=== PATIENT | male | born 1950 | race Caucasian/White ===

== ENCOUNTER 2022-11-10 15:08 | Outpatient (OUT) | payer MEDICARE, SELFPAY ==
[2022-11-10 16:01] LABS: Estimated Average Glucose 151 mg/dL; Glycohemoglobin A1C 6.9 % (4.5-6.2)
== END 2022-11-10 15:09 | disposition home or self-care (01) ==
LOC: LAB 15:11
PROVIDERS: PCP Family Medicine; Visit Provider Family Medicine
DX: E11.65 Type 2 diabetes mellitus with hyperglycemia (principal)
CPT/HCPCS: 36415; 83036

== ENCOUNTER 2022-11-20 09:59 | Emergency (ER) | payer MEDICARE, SELFPAY ==
[2022-11-20] VITALS (17 sets, daily range): BP systolic 127–158; BP diastolic 61–71; PULSE 51–68; RESP 12–23; TEMP 36.4; O2SAT 91–100; BMI 27.4
--- NOTE | 2022-11-20 10:15 | ED_ITS ---
HPI - Dizziness General Chief Complaint: Dizziness Stated Complaint: DIZZINESS Time Seen by Provider: 11/20/22 10:15 Source: patient and family Mode of arrival: Wheelchair Limitations: no limitations History of Present Illness HPI Narrative: Patient presents to the emergency department complaining of tinnitus. He states when he got up this morning he stood up and felt like the room was spinning. He states she's had episodes like this in the last month intermittently. He has not seen his doctor for it. He denies any nausea or vomiting. states she's had diarrhea in the last 3 days. Patient otherwise denies any headache, visual disturbance, or speech difficulties. He denies any focal weakness. He denies any fever, chills, or cough. He denies any chest, shortness of breath. He denies any abdominal pain, flank pain, hematuria, dysuria. Patient denies any trauma. He has been eating and drinking well. He denies any ear pain or tinnitus. MD elicited complaint: Reports dizziness Related Data Home Medications Medication Instructions Recorded Confirmed aspirin 81 mg tablet,delayed 81 mg PO DAILY 11/20/22 11/20/22 release (Adult Aspirin Regimen) metformin 500 mg tablet 500 mg PO DAILY 11/20/22 11/20/22 rosuvastatin 20 mg tablet 40 mg PO DAILY 11/20/22 11/20/22 Previous Rx's Medication Instructions Recorded meclizine 25 mg tablet 25 mg PO TID PRN dizziness #20 tabs 11/20/22 Allergies Allergy/AdvReac Type Severity Reaction Status Date / Time No Known Drug Allergies Allergy Verified 11/20/22 10:09 Review of Systems ROS Status of ROS 10 or more systems reviewed and unremarkable except as noted in history and below [facility] Social History Smoking status: Current every day smoker Exam Narrative Exam Narrative: Nurses notes and vital signs reviewed and patient is not hypoxic. General: Nontoxic, Well-appearing and in no apparent distress. Skin: Warm, dry, no pallor noted. No Rash Head: Normocephalic, atraumatic. Neck: Supple, non-tender. Eye: Pupils are equal, round and EOMI. No scleral icterus. Ears, Nose, Mouth, and Throat: TM clear, no posterior oropharynx erythema or nasal mucosal hypertrophy, uvula is mid-line Oral mucosa is moist Cardiovascular: Regular Rate and Rhythm without murmur, gallop or rub. Respiratory: No accessory muscle use or respiratory distress. Lungs are clear to auscultation, no wheezing, rales or rhonchi Chest Wall: no tenderness Back: No midline thoracic or lumbar vertebral tenderness. No CVA tenderness Musculoskeletal: normal ROM, no calf or popliteal tenderness, no lower extremity edema/swelling GI: Abdomen is soft, non-distended. Normal bowel sounds. No masses appreciated. No tenderness to palpation. No rebound, guarding, or rigidity noted. Neurological: A&O x4. No cranial nerve dysfunction observed. No truncal ataxia. Moves all extremities. Sensation intact. Psychiatric: Cooperative and interactive. Normal mood and affect. Constitutional Vital Signs, click to edit/add: Last Vital Signs Temp 97.6 F 11/20/22 10:05 Pulse 55 L 11/20/22 11:50 Resp 17 11/20/22 11:50 BP 152/69 H 11/20/22 11:44 Pulse Ox 98 11/20/22 11:40 O2 Del Method Room Air 11/20/22 12:01 Course Vital Signs Vital signs: Vital Signs Temperature 97.6 F 11/20/22 10:05 Pulse Rate 55 L 11/20/22 10:05 Respiratory Rate 16 11/20/22 10:05 Blood Pressure 156/65 H 11/20/22 10:05 Pulse Oximetry 99 11/20/22 10:05 Oxygen Delivery Method Room Air 11/20/22 10:05 Temperature 97.6 F 11/20/22 10:05 Pulse Rate 55 L 11/20/22 11:50 Respiratory Rate 17 11/20/22 11:50 Blood Pressure 152/69 H 11/20/22 11:44 Pulse Oximetry 98 11/20/22 11:40 Oxygen Delivery Method Room Air 11/20/22 12:01 MDM - Dizziness MDM Narrative Medical decision making narrative: Patient is neurologically intact. He was given Antivert which helped his symptoms. Labs studies and CT scan of the brain and chest x-ray were done and did not show anything acute. Patient will be given a prescription for Antivert. He is to follow up with primary care doctor. At this time the patient is without objective evidence of an acute process requiring hospitalization or inpatient management. The patient has remained hemodynamically stable. No additional indication for emergent studies at this time. I answered all questions. Discussed discharge instructions including standard anticipatory guidance and what should prompt a return to the emergency department, including if they get worse are not getting better or develops any new or concerning symptoms. I've given them specific time frame in which to follow-up, and who to follow-up with. The patient demonstrates understanding. Patient is nontoxic and stable for discharge with outpatient follow-up. This note was created with the assistance of a speech recognition program. Although the intention is to generate documents that actually reflects the content of the visit, no guarantees can be provided that every mistake has been identified and corrected by editing. Lab Data Attestation: I reviewed the patient's lab results. Labs: Lab Results 11/20/22 Range/Units 10:20 WBC 7.2 (4.0-11.0) 10^3/uL RBC 4.82 (4.70-6.10) 10^6/uL Hgb 16.1 (14.0-18.0) g/dL Hct 45.5 (42.0-54.0) % MCV 94.4 H (80.0-94.0) fL MCH 33.4 (25.9-34.0) pg MCHC 35.4 H (29.9-35.2) g/dL RDW 12.2 (11.0-15.0) % Plt Count 105 L (150-450) 10^3/uL MPV 10.4 (9.5-13.5) fL Neut % (Auto) 66.3 (43.0-75.0) % Lymph % (Auto) 22.4 (20.5-60.0) % [place] % (Auto) 8.3 (1.7-12.0) % Eos % (Auto) 1.9 (0.9-7.0) % Baso % (Auto) 0.8 (0.2-2.0) % Neut # (Auto) 4.8 (1.4-6.5) 10^3/uL Lymph # (Auto) 1.6 (1.2-3.8) 10^3/uL [place] # (Auto) 0.6 (0.3-0.8) 10^3/uL Eos # (Auto) 0.1 (0.0-0.7) 10^3/uL Baso # (Auto) 0.1 (0.0-0.1) 10^3/uL Abs Immat Gran (auto) 0.02 (0.00-0.03) 10^3/uL Imm/Tot Granulo (auto) 0.3 (0.0-0.5) % Sodium 134 L (136-145) mmol/L Potassium 4.0 (3.5-5.1) mmol/L Chloride 101 (98-107) mmol/L Carbon Dioxide 24.3 (21.0-32.0) mmol/L Anion Gap 12.7 BUN 16.0 (7.0-18.0) mg/dL Creatinine 1.09 (0.70-1.30) mg/dL Est GFR ( Amer) >60 (>=60) Est GFR (Non-Af Amer) >60 (>=60) BUN/Creatinine Ratio 14.7 Glucose 182 H (74-106) mg/dL Calcium 10.3 H (8.5-10.1) mg/dL Magnesium 2.1 (1.8-2.4) mg/dL Total Bilirubin 0.5 (0.2-1.0) mg/dL AST 23 (15-37) U/L ALT 32 (16-63) U/L Alkaline Phosphatase 82 (46-116) U/L Troponin I High Sens 22.6 (4.0-76.1) pg/mL NT-Pro-B Natriuret Pep 461.0 (<=900.0) pg/mL Total Protein 6.7 (6.4-8.2) g/dL Albumin 3.5 (3.4-5.0) g/dL Globulin 3.2 g/dL Albumin/Globulin Ratio 1.1 TSH 1.273 (0.358-3.740) uIU/mL ECG Data Attestation: I personally reviewed and interpreted this ECG as follows: Interpretation: Sinus rhythm at 64 bpm. Right bundle branch block. There are no acute ischemic changes. Discharge Plan Discharge Chief Complaint: Dizziness Clinical Impression: Vertigo Patient Disposition: Home, Self-Care Time of Disposition Decision: 12:14 Condition: Good Mode of Transportation: Private Vehicle Prescriptions / Home Meds: New meclizine 25 mg tablet 25 mg PO TID PRN (Reason: dizziness) Qty: 20 0RF No Action metformin 500 mg tablet 500 mg PO DAILY rosuvastatin 20 mg tablet 40 mg PO DAILY aspirin [Adult Aspirin Regimen] 81 mg tablet,delayed release (DR/EC) 81 mg PO DAILY Instructions: Vertigo (ED), Dizziness (ED) Stand Alone Forms: Portal Instructions Referrals: Kenny Brown MD [Primary Care Provider] - 1 week Discharge Date/Time: 11/20/22 12:40
--- NOTE | 2022-11-20 10:15 | ECG_ITS ---
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
--- NOTE | 2022-11-20 10:23 | CT_ITS ---
[address] [address] Patient Name: JAMES POPE MRN: [id number] date: 1950 Sex: M Assigned Patient Location: ER Current Patient Location: ER Accession/Order Number: [id number] Exam Date: 11/20/2022 10:45 Report Date: 11/20/2022 11:17 At the request of: JOSE BELL Procedure: CT head/brain wo con EXAMINATION: CT head/brain wo con, 11/20/2022 10:45 AM EDT HISTORY: Dizziness COMPARISON: None. TECHNIQUE: CT scan of the head was performed without IV contrast. CT dose reduction technique was used, including Automated Exposure Control. FINDINGS: BRAIN PARENCHYMA/CSF SPACES: Prominence of the ventricles and sulci compatible with diffuse cerebral atrophy. Periventricular white matter hypodensities suggesting chronic small vessel ischemic changes. There is no hemorrhage, mass effect or midline shift. Chronic appearing infarct involving the left cerebellum. PARANASAL SINUSES: Small retention cyst versus polyp in the left maxillary sinus. SKULL BASE AND CALVARIUM: Normal. EXTRACRANIAL SOFT TISSUES: Normal. CT/CT head/brain wo con IMPRESSION: 1. No acute intracranial abnormality. 2. Atrophy and chronic white matter small vessel ischemic changes. Electronically authenticated by: YADIRA SMITH Date: 11/20/2022 11:17
--- NOTE | 2022-11-20 10:25 | PC.NURSE ---
Dizziness for 1 hr, pt approriate and clear speaking
[2022-11-20] MEDS: 0.9 % SODIUM CHLORIDE 1,000 ML 999 ML IV (10:33)
[2022-11-20] MEDS: MECLIZINE HCL 12.5 MG TABLET 25 MG PO (10:34)
[2022-11-20 10:39] LABS: Basophils Absolute Auto 0.1 10^3/uL (0.0-0.1); Basophils Percent Auto 0.8 % (0.2-2.0); Eosinophils Absolute Auto 0.1 10^3/uL (0.0-0.7); Eosinophils Percent Auto 1.9 % (0.9-7.0); Hematocrit 45.5 % (42.0-54.0); Hemoglobin 16.1 g/dL (14.0-18.0); Immature Granulocytes Abs Auto 0.02 10^3/uL (0.00-0.03); Immature Granulocytes Pct Auto 0.3 % (0.0-0.5); Lymphocytes Absolute Auto 1.6 10^3/uL (1.2-3.8); Lymphocytes Percent Auto 22.4 % (20.5-60.0); Mean Corpuscular HGB Conc 35.4 g/dL (29.9-35.2); Mean Corpuscular Hemoglobin 33.4 pg (25.9-34.0); Mean Corpuscular Volume 94.4 fL (80.0-94.0); Mean Platelet Volume 10.4 fL (9.5-13.5); Monocytes Absolute Auto 0.6 10^3/uL (0.3-0.8); Monocytes Percent Auto 8.3 % (1.7-12.0); Neutrophils Absolute Auto 4.8 10^3/uL (1.4-6.5); Neutrophils Percent Auto 66.3 % (43.0-75.0); Platelet Count 105 10^3/uL (150-450); Red Blood Count 4.82 10^6/uL (4.70-6.10); Red Cell Distribution Width 12.2 % (11.0-15.0); White Blood Count 7.2 10^3/uL (4.0-11.0)
[2022-11-20 10:51] LABS: Alanine Aminotransferase 32 U/L (16-63); Albumin Globulin Ratio 1.1; Albumin Level 3.5 g/dL (3.4-5.0); Alkaline Phosphatase 82 U/L (46-116); Anion Gap 12.7; Aspartate Amino Transferase 23 U/L (15-37); BUN Creatinine Ratio 14.7; Bilirubin Total 0.5 mg/dL (0.2-1.0); Calcium 10.3 mg/dL (8.5-10.1); Carbon Dioxide 24.3 mmol/L (21.0-32.0); Chloride 101 mmol/L (98-107); Estimated GFR (African America >60 (>=60); Estimated GFR (Non-African Ame >60 (>=60); Globulin 3.2 g/dL; Glucose 182 mg/dL (74-106); Magnesium 2.1 mg/dL (1.8-2.4); Sodium 134 mmol/L (136-145); Total Protein 6.7 g/dL (6.4-8.2)
[2022-11-20 11:01] LABS: Thyroid Stimulating Hormone 1.273 uIU/mL (0.358-3.740); Troponin I High Sensitivity 22.6 pg/mL (4.0-76.1)
== END 2022-11-20 12:40 | disposition home or self-care (01) ==
PROVIDERS: Emergency Provider Emergency Medicine; PCP Family Medicine
DX: R42 Dizziness and giddiness (principal); Z79.82 Long term (current) use of aspirin; Z79.84 Long term (current) use of oral hypoglycemic drugs; Z79.899 Other long term (current) drug therapy; F17.210 Nicotine dependence, cigarettes, uncomplicated
CPT/HCPCS: 36415; 70450; 80053; 81003; 83735; 83880; 84443; 84484; 85025; 93005; 99285

== ENCOUNTER 2022-12-14 16:04 | Emergency (ER) | payer MEDICARE, SELFPAY ==
[2022-12-14 16:08] VITALS: BP 129/67; PULSE 90; RESP 16; TEMP 36.8; O2SAT 99; BMI 28.0
--- NOTE | 2022-12-14 17:21 | CT_ITS ---
The [address] [address] Patient Name: JAMES POPE MRN: [id number] date: 1950 Sex: M Assigned Patient Location: ER Current Patient Location: Accession/Order Number: [id number] Exam Date: 12/14/2022 17:17 Report Date: 12/14/2022 18:33 At the request of: CALLI LANGSTON Procedure: CT head/brain wo con CT SCAN OF THE HEAD WITHOUT CONTRAST, 12/14/2022 5:17 PM EDT: COMPARISON: CT scan of the head, 11/20/2022 CLINICAL HISTORY: tremors TECHNIQUE: 3 mm axial images performed through the head without contrast. 3 mm sagittal and coronal MPR reconstructions performed. Dose reduction techniques were achieved by using automated exposure control and/or adjustment of mA and/or kV according to patient size and/or use of iterative reconstruction technique. FINDINGS: Patient's head is rotated in the CT gantry causing some anatomical asymmetry. Focal areas of encephalomalacia in the cerebral hemisphere bilaterally. Age-related cerebral and cerebellar atrophy with associated ventricular prominence. Nonspecific periventricular white matter low attenuation, likely a sequela of small vessel disease. No acute hemorrhage, mass effect, or midline shift. Mild mucosal thickening in the left maxillary sinus. Mastoid air cells are clear. No acute osseous abnormality. CT/CT head/brain wo con IMPRESSION: 1. No acute intracranial abnormality identified. Please note, CT is insensitive to early ischemia and if there is further clinical concern, MRI or CT angiography is recommended. 2. Age-related atrophy with associated ventricular prominence and periventricular white matter small vessel disease. 3. Old bilateral cerebellar infarcts. Electronically authenticated by: Iris MORALES Date: 12/14/2022 18:33
[2022-12-14 17:39] VITALS: PULSE 82
--- NOTE | 2022-12-14 17:45 | ECG_ITS ---
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
--- NOTE | 2022-12-14 17:46 | ED_ITS ---
HPI - General Adult General Chief complaint: Dizziness Stated complaint: Tremors, Chills Time Seen by Provider: 12/14/22 16:22 Source: patient Mode of arrival: Wheelchair History of Present Illness HPI narrative: patient is a 72-year-old male history of diabetes who presents to the emergency department for the evaluation of tremors that occurred at home several hours ago. Patient states the tremors lasted for about two hours and states they were present over his body. He had no unilateral weakness or shaking. He denies headache, visual changes. He was awake the entire time he had the tremors. He states he felt very cold. He has had no objective fevers, no upper respiratory symptoms. He denies chest pain, shortness of breath, vomiting, diarrhea, urinary symptoms. He denies any peripheral paresthesias. He has had no falls or injur ies. Apparently EMS was dispatched and came to the home to evaluate the patient, they declined EMS transport although the patient's gave him a metformin dose because his blood sugar was 240. Related Data Home Medications Medication Instructions Recorded Confirmed aspirin 81 mg tablet,delayed 81 mg PO DAILY 11/20/22 11/20/22 release (Adult Aspirin Regimen) metformin 500 mg tablet 500 mg PO DAILY 11/20/22 11/20/22 rosuvastatin 20 mg tablet 40 mg PO DAILY 11/20/22 11/20/22 Previous Rx's Medication Instructions Recorded meclizine 25 mg tablet 25 mg PO TID PRN dizziness #20 tabs 11/20/22 Allergies Allergy/AdvReac Type Severity Reaction Status Date / Time No Known Drug Allergies Allergy Verified 11/20/22 10:09 Review of Systems ROS Constitutional Reports: chills; Denies: fever Ears, nose, mouth, and throat Denies: throat pain Cardiovascular Denies: chest pain Respiratory Denies: shortness of breath or cough Gastrointestinal Denies: nausea or vomiting Genitourinary Denies: painful urination Musculoskeletal Denies: back pain Integumentary/Breast Denies: rash Neurological Denies: headache, numbness in extremities, weakness in extremities or slurred speech Endocrine Denies: excessive urination Hematologic/Lymphatic Denies: easy bruising PFSH PFSH Social History Smoking status: Current every day smoker Exam Narrative Exam Narrative: Gen.: Awake, alert, in no distress Head: Normocephalic, atraumatic ENT: Moist mucous membranes Respiratory: No respiratory distress, lungs clear bilaterally Cardio: Regular rate and rhythm Gastrointestinal: Abdomen is soft, nondistended and nontender to palpation Extremities: Moves extremities equally Psych: Normal mood and affect Neuro: No focal neuro deficit, clear speech with no facial drooping. 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 and normal dorsiflexion and plantarflexion of the lower extremities Skin: Warm, dry, intact Constitutional Vital Signs, click to edit/add: Last Vital Signs Temp 98.2 F 12/14/22 16:08 Pulse 90 12/14/22 16:08 Resp 16 12/14/22 16:08 BP 129/67 12/14/22 16:08 Pulse Ox 96 12/14/22 17:51 O2 Del Method Room Air 12/14/22 17:51 Course Vital Signs Vital signs: Vital Signs Temperature 98.2 F 12/14/22 16:08 Pulse Rate 90 12/14/22 16:08 Respiratory Rate 16 12/14/22 16:08 Blood Pressure 129/67 12/14/22 16:08 Pulse Oximetry 99 12/14/22 16:08 Oxygen Delivery Method Room Air 12/14/22 16:08 Temperature 98.2 F 12/14/22 16:08 Pulse Rate 90 12/14/22 16:08 Respiratory Rate 16 12/14/22 16:08 Blood Pressure 129/67 12/14/22 16:08 Pulse Oximetry 96 12/14/22 17:51 Oxygen Delivery Method Room Air 12/14/22 17:51 Medical Decision Making [facility] Narrative Medical decision making narrative: patient with normal vital signs in the emergency department. Lab studies with white blood cell count 11.6, no bandemia. CT of the brain shows no evidence of acute abnormalities and the remainder of the lab studies are stable from previous. Urine with no evidence of urinary tract infection. Patient with no episodes of tremors, rigors or other focal medical complaints in the emergency department. He is discharged home with precautions, follow-up with PCP and return to the Emergency Room if symptoms change or worsen. Medical Records Medical records reviewed: Yes I reviewed the patient's medical records Lab Data Lab results reviewed: Yes I reviewed the patient's lab results Labs: Lab Results 08/30/23 08/30/23 Range/Units 17:46 19:05 WBC 11.9 H (4.0-11.0) 10^3/uL RBC 5.14 (4.70-6.10) 10^6/uL Hgb 17.1 (14.0-18.0) g/dL Hct 48.6 (42.0-54.0) % MCV 94.6 H (80.0-94.0) fL MCH 33.3 (25.9-34.0) pg MCHC 35.2 (29.9-35.2) g/dL RDW 12.4 (11.0-15.0) % Plt Count 102 L (150-450) 10^3/uL MPV 10.7 (9.5-13.5) fL Neut % (Auto) 89.2 H (43.0-75.0) % Lymph % (Auto) 3.7 L (20.5-60.0) % [place] % (Auto) 6.1 (1.7-12.0) % Eos % (Auto) 0.3 L (0.9-7.0) % Baso % (Auto) 0.3 (0.2-2.0) % Neut # (Auto) 10.6 H (1.4-6.5) 10^3/uL Lymph # (Auto) 0.4 L (1.2-3.8) 10^3/uL [place] # (Auto) 0.7 (0.3-0.8) 10^3/uL Eos # (Auto) 0.0 (0.0-0.7) 10^3/uL Baso # (Auto) 0.0 (0.0-0.1) 10^3/uL Abs Immat Gran (auto) 0.05 H (0.00-0.03) 10^3/uL Imm/Tot Granulo (auto) 0.4 (0.0-0.5) % Sodium 132 L (136-145) mmol/L Potassium 3.8 (3.5-5.1) mmol/L Chloride 103 (98-107) mmol/L Carbon Dioxide 25.1 (21.0-32.0) mmol/L Anion Gap 7.7 BUN 14.0 (7.0-18.0) mg/dL Creatinine 1.22 (0.70-1.30) mg/dL Est GFR ( Amer) >60 (>=60) Est GFR (Non-Af Amer) 58 L (>=60) BUN/Creatinine Ratio 11.5 Glucose 204 H (74-106) mg/dL Calcium 10.3 H (8.5-10.1) mg/dL Magnesium 1.8 (1.8-2.4) mg/dL Total Bilirubin 1.1 H (0.2-1.0) mg/dL AST 24 (15-37) U/L ALT 26 (16-63) U/L Alkaline Phosphatase 97 (46-116) U/L Troponin I High Sens 33.5 (4.0-76.1) pg/mL Total Protein 7.3 (6.4-8.2) g/dL Albumin 3.9 (3.4-5.0) g/dL Globulin 3.4 g/dL Albumin/Globulin Ratio 1.1 Urine Color Yellow (YELLOW) Urine Clarity Clear (CLEAR) Urine pH 5.5 (5.0-9.0) Ur Specific [place] 1.025 (1.005-1.025) Urine Protein 100 A (NEG/TRACE) mg/dL Urine Glucose (UA) 500 A (NEGATIVE) mg/dL Urine Ketones Negative (NEGATIVE) mg/dL Urine Occult Blood Negative (NEGATIVE) Urine Nitrite Negative (NEGATIVE) Urine Bilirubin Negative (NEGATIVE) Urine Urobilinogen 0.2 (0.2-1.0) EU/dL Ur Leukocyte Esterase Negative (NEGATIVE) Urine RBC 0-2 (0-2) #/HPF Urine WBC None seen (NONE SEEN) #/HPF Ur Squamous Epith Cells None seen (NONE/RARE) #/LPF Urine Crystals None seen (None Seen) #/HPF Urine Bacteria None seen (NONE SEEN) #/HPF Urine Casts None seen (NONE SEEN) #/LPF Urine Mucus Trace A (NONE SEEN) Ur Culture Indicated? No Imaging Data CT scan - head: Attestation: I have reviewed the pertinent imaging results. ECG Data Attestation: I personally reviewed and interpreted this ECG as follows: (normal sinus rhythm at a rate of eighty-two, first-degree AV block with no acute ST elevation or ectopy. EKG reviewed by attending physician) Discharge Plan Discharge Chief Complaint: Dizziness Clinical Impression: Tremor Patient Disposition: Home, Self-Care Time of Disposition Decision: 19:46 Condition: Good Prescriptions / Home Meds: No Action metformin 500 mg tablet 500 mg PO DAILY rosuvastatin 20 mg tablet 40 mg PO DAILY aspirin [Adult Aspirin Regimen] 81 mg tablet,delayed release (DR/EC) 81 mg PO DAILY meclizine 25 mg tablet 25 mg PO TID PRN (Reason: dizziness) Qty: 20 0RF Instructions: Tremors (ED) Stand Alone Forms: Portal Instructions Referrals: Kenny Brown MD [Primary Care Provider] - 1 week Discharge Date/Time: 12/14/22 20:17
[2022-12-14 17:51] VITALS: O2SAT 96
[2022-12-14 18:02] LABS: Basophils Percent Auto 0.3 % (0.2-2.0); Eosinophils Percent Auto 0.3 % (0.9-7.0); Hematocrit 48.6 % (42.0-54.0); Hemoglobin 17.1 g/dL (14.0-18.0); Immature Granulocytes Abs Auto 0.05 10^3/uL (0.00-0.03); Immature Granulocytes Pct Auto 0.4 % (0.0-0.5); Lymphocytes Absolute Auto 0.4 10^3/uL (1.2-3.8); Lymphocytes Percent Auto 3.7 % (20.5-60.0); Mean Corpuscular HGB Conc 35.2 g/dL (29.9-35.2); Mean Corpuscular Hemoglobin 33.3 pg (25.9-34.0); Mean Corpuscular Volume 94.6 fL (80.0-94.0); Mean Platelet Volume 10.7 fL (9.5-13.5); Monocytes Absolute Auto 0.7 10^3/uL (0.3-0.8); Monocytes Percent Auto 6.1 % (1.7-12.0); Neutrophils Absolute Auto 10.6 10^3/uL (1.4-6.5); Neutrophils Percent Auto 89.2 % (43.0-75.0); Platelet Count 102 10^3/uL (150-450); Red Blood Count 5.14 10^6/uL (4.70-6.10); Red Cell Distribution Width 12.4 % (11.0-15.0); White Blood Count 11.9 10^3/uL (4.0-11.0)
[2022-12-14 18:10] LABS: Magnesium 1.8 mg/dL (1.8-2.4)
[2022-12-14 18:19] LABS: Alanine Aminotransferase 26 U/L (16-63); Albumin Globulin Ratio 1.1; Albumin Level 3.9 g/dL (3.4-5.0); Alkaline Phosphatase 97 U/L (46-116); Anion Gap 7.7; Aspartate Amino Transferase 24 U/L (15-37); BUN Creatinine Ratio 11.5; Bilirubin Total 1.1 mg/dL (0.2-1.0); Calcium 10.3 mg/dL (8.5-10.1); Carbon Dioxide 25.1 mmol/L (21.0-32.0); Chloride 103 mmol/L (98-107); Estimated GFR (African America >60 (>=60); Estimated GFR (Non-African Ame 58 (>=60); Globulin 3.4 g/dL; Glucose 204 mg/dL (74-106); Potassium 3.8 mmol/L (3.5-5.1); Sodium 132 mmol/L (136-145); Total Protein 7.3 g/dL (6.4-8.2)
[2022-12-14 18:21] LABS: Troponin I High Sensitivity 33.5 pg/mL (4.0-76.1)
[2022-12-14 19:24] LABS: Bilirubin Urine NEGATIVE (NEGATIVE); Blood Urine NEGATIVE (NEGATIVE); Clarity Urine CLEAR (CLEAR); Color Urine YELLOW (YELLOW); Glucose Urine UA 500 mg/dL (NEGATIVE); Ketones Urine NEGATIVE (NEGATIVE); Leukocyte Esterase Urine NEGATIVE (NEGATIVE); Nitrite Urine NEGATIVE (NEGATIVE); Protein Urine 100 mg/dL (NEG/TRACE); Specific Gravity Urine 1.025 (1.005-1.025); Urobilinogen Urine 0.2 EU/dL (0.2-1.0); pH Urine 5.5 (5.0-9.0)
[2022-12-14 19:25] LABS: Urine Microscopic Indicated YES
[2022-12-14 19:39] LABS: Bacteria Urine NONE SEEN #/HPF (NONE SEEN); Cast Seen? NONE SEEN #/LPF (NONE SEEN); Crystals Seen? None Seen #/HPF (None Seen); Mucus Urine TRACE (NONE SEEN); RBC Urine 0-2 #/HPF (0-2); Squamous Epithelial Cell Urine NONE SEEN #/LPF (NONE/RARE); Urine Culture Indicated NO; WBC Urine NONE SEEN #/HPF (NONE SEEN)
== END 2022-12-14 20:17 | disposition home or self-care (01) ==
PROVIDERS: Physician Assistant; Emergency Provider Emergency Medicine; PCP Family Medicine
DX: R25.1 Tremor, unspecified (principal); E11.9 Type 2 diabetes mellitus without complications; Z79.84 Long term (current) use of oral hypoglycemic drugs; Z79.82 Long term (current) use of aspirin; F17.210 Nicotine dependence, cigarettes, uncomplicated
CPT/HCPCS: 36415; 70450; 80053; 81001; 83735; 84484; 85025; 93005; 99285

== ENCOUNTER 2023-04-24 14:49 | Outpatient (OUT) | payer MEDICARE, SELFPAY ==
[2023-04-24 15:27] LABS: Basophils Absolute Auto 0.1 10^3/uL (0.0-0.1); Basophils Percent Auto 0.7 % (0.2-2.0); Eosinophils Absolute Auto 0.2 10^3/uL (0.0-0.7); Eosinophils Percent Auto 1.8 % (0.9-7.0); Hematocrit 46.9 % (42.0-54.0); Hemoglobin 15.9 g/dL (14.0-18.0); Immature Granulocytes Abs Auto 0.02 10^3/uL (0.00-0.03); Immature Granulocytes Pct Auto 0.2 % (0.0-0.5); Lymphocytes Absolute Auto 1.9 10^3/uL (1.2-3.8); Lymphocytes Percent Auto 22.8 % (20.5-60.0); Mean Corpuscular HGB Conc 33.9 g/dL (29.9-35.2); Mean Corpuscular Hemoglobin 32.8 pg (25.9-34.0); Mean Corpuscular Volume 96.7 fL (80.0-94.0); Mean Platelet Volume 10.8 fL (9.5-13.5); Monocytes Absolute Auto 0.6 10^3/uL (0.3-0.8); Monocytes Percent Auto 7.2 % (1.7-12.0); Neutrophils Absolute Auto 5.5 10^3/uL (1.4-6.5); Neutrophils Percent Auto 67.3 % (43.0-75.0); Platelet Count 115 10^3/uL (150-450); Red Blood Count 4.85 10^6/uL (4.70-6.10); White Blood Count 8.2 10^3/uL (4.0-11.0)
[2023-04-24 16:08] LABS: Estimated Average Glucose 171 mg/dL; Glycohemoglobin A1C 7.6 % (4.5-6.2)
[2023-04-24 16:22] LABS: Prostate Specific Antigen Dx 3.33 ng/mL (<=4.00)
[2023-04-24 16:34] LABS: Alanine Aminotransferase 36 U/L (16-63); Albumin Level 3.3 g/dL (3.4-5.0); Alkaline Phosphatase 91 U/L (46-116); Aspartate Amino Transferase 20 U/L (15-37); BUN Creatinine Ratio 12.8; Bilirubin Direct 0.2 mg/dL (0.0-0.2); Bilirubin Total 0.8 mg/dL (0.2-1.0); Calcium 10.2 mg/dL (8.5-10.1); Carbon Dioxide 27.4 mmol/L (21.0-32.0); Chloride 105 mmol/L (98-107); Chol HDL Ratio 2.1; Cholesterol 101 mg/dL (<=200); Estimated GFR (African America >60 (>=60); Estimated GFR (Non-African Ame >60 (>=60); Globulin 3.4 g/dL; Glucose 205 mg/dL (74-106); HDL Cholesterol 47 mg/dL (40-60); LDL Cholesterol Calculated 38.8 mg/dL; Potassium 4.4 mmol/L (3.5-5.1); Sodium 139 mmol/L (136-145); Total Protein 6.7 g/dL (6.4-8.2); Triglycerides 76 mg/dL (<=150); VLDL CHOLESTEROL 15.2 mg/dL
== END 2023-04-24 14:50 | disposition home or self-care (01) ==
LOC: LAB 14:50
PROVIDERS: PCP Family Medicine; Visit Provider Family Medicine
DX: E11.65 Type 2 diabetes mellitus with hyperglycemia (principal); Z79.899 Other long term (current) drug therapy; E78.5 Hyperlipidemia, unspecified; R53.83 Other fatigue; Z12.5 Encounter for screening for malignant neoplasm of prostate
CPT/HCPCS: 36415; 80048; 80061; 80076; 83036; 84153; 84443; 85025

== ENCOUNTER 2023-05-02 08:37 | Outpatient (OUT) | payer MEDICARE, SELFPAY ==
--- NOTE | 2023-05-02 | NM_ITS ---
Patient Name: JAMES POPE MR#: [id number] : 1950 Exam Date: 05/02/2023 Ordering Doctor: DR TERRANCE HORTON . RADIOLOGY REPORT PROCEDURE: NM BRANDO PERF SPECT REST STR COMPARISON: None. INDICATIONS: FATIGUE, SOB WITH EXERTION, CAD AND PRIOR CABG TECHNIQUE: Exam Description: Stress/Rest one day protocol gated SPECT Rest Imagin.5 mCi Tc-99m Cardiolite IV on 05/02/2023 Stress Imaging 31.2 mCi Tc-99m Cardiolite IV on 05/02/2023 Exercise Protocol: 0.4 mg Lexiscan given IV Heart Rate (bpm): Rest: 55 Max: 74 PMHR: 50 Blood Pressure: Rest: 118/76 Max: 164/80 Symptoms: Rest and peak stress ECG findings were abnormal and the exercise portion of the study was Equivocal per attending physician Dr. Cabello due to EKG changes. For more details please see separate cardiac stress test report. FINDINGS: QUALITY OF STUDY: Good. PERFUSION DEFECT: LOCATION: Basal inferior. Mid-inferior. Apical inferior. [place]. SIZE: Medium (3-4 segments). SEVERITY: Moderate. TYPE: Persistent. WALL MOTION: Mild hypokinesis: LV SIZE: Enlarged; EDV 121 mL. TID / TCD: None; 1.0 LVEF: Abnormal. Calculated EF 49%. SUMMARY: Myocardial perfusion imaging study has ABNORMAL findings. CONCLUSION: 1. Moderate to large size moderate severity transmural defect in the inferior wall extending the apex primarily RCA distribution. No reversible ischemia is identified 2. Dilated left ventricle, end-diastolic volume 121 milliliters 3. Low left ventricular ejection fraction 49% 4. Abnormal exercise test due to EKG changes Dictated by: Laurent Littlejohn MD on 05/03/2023 at 07:54 Approved by: aLurent Littlejohn MD on 05/03/2023 at 07:56
--- OUTSIDE RECORDS SUMMARY | 2023-05-02 08:42 | XMS_ITS | CCD ---
Author Name Unknown Address [address] [facility] [address] [place] [id number] Organization [facility] Care Team Providers Care Bricklayer Supervisor Name Role Phone CAREY TREVIÑO Unavailable Unavailable AUDREY OSHEA Unavailable Unavailable NADERER, DR TERRANCE Jones Primary Care Unavailable REINECK, DR GEO Carlson Admitting Unavailabl e REINECK, DR GEO Cralson Attending Unavailabl e GLORIA ., JUAN MANUEL Consulting Unavailable ITKIN, HOME Consulting Unavailable NADERER, DR TERRANCE Jones Admitting Unavailable NADERER, DR TERRANCE Jones Attending Unavailable NADERER, DR TERRANCE Jones Primary Care Unavailable NADERER, DR TERRANCE Jones Consulting Unavailable NADERER, DR TERRANCE Jones Primary Care Unavailable REINECK, DR GEO Carlson Admitting Unavailabl e REINECK, DR GEO Carlson Attending Unavailabl e REINECK, DR GEO Carlson Consulting Unavailabl e ALICIA, NORY Consulting Unavailable ALGHOTHANI, KATHY Attending Unavailable WITHERELL, SARBJIT Attending Unavailable NADERER, TERRANCE Attending Unavailable RUSHER, KARINA Jones Attending Unavailable Allergies Allergy Classification Reported Allergen(s) Allergy Type Date of Onset Reaction(s) Facility (1 source) bee venom Drug allergy (disorder) [facility] Repository (1 source) Iodine (And Iodine Containting Drugs) Drug allergy (disorder) [facility] Rep[facility] Problems Active Problems Problem Classification Problem Date Documented Da te Episodic/Chronic Chronic obstructive pulmonary disease and bronchiectasis (2 sources) Chronic obstructive pulmonary disease, unspecified; 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: [Chronic obstructive pulmonary disease, unspecified] Onset: 01-23-2023 Chronic Coagulation and hemorrhagic disorders (1 source) Thrombocytopenia, unspecified; 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: [Thrombocytopenia, unspecified] Onset: 06-15-2017 Chronic Coronary atherosclerosis and other heart disease (3 sources) Atherosclerotic heart disease of kenaitze coronary artery without angina pectoris; 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: [Atherosclerotic heart disease of kenaitze coronary artery with unspecified angina pectoris] Onset: 05-03-2022 Chronic Coronary atherosclerosis and other heart disease (3 sources) Presence of aortocoronary bypass graft; 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: [PRESENCE AORTOCORONARY BYPASS GRAFT] Onset: 05-03-2022 Episodic Diabetes mellitus with complications (4 sources) Type 2 diabetes mellitus with hyperglycemia; 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: [TYPE 2 DM W/HYPERGLYCEMIA] Onset: 07-27-2022 Chronic Diabetes mellitus without complication (1 source) Type 2 diabetes mellitus without complications; 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: [TYPE 2 DM WITHOUT COMPLICATIONS] Onset: 05-03-2022 Chronic Disorders of lipid metabolism (2 sources) Mixed hyperlipidemia; 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: [Mixed hyperlipidemia] Onset: 01-23-2023 Chronic Diverticulosis and diverticulitis (1 source) Diverticulitis of large intestine without perforation or abscess without bleeding; 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: [DVTRCLI LG INT NO PERF/ABSC W/O BL] Onset: 05-03-2022 Chronic Essential hypertension (3 sources) Essential (primary) hypertension; 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: [ESSENTIAL PRIMARY HYPERTENSION] Onset: 05-03-2022 Chronic Other aftercare (1 source) 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; 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: [TECHNICAL TESTING ENGINEER CURRENT USE OF ASPIRIN] Onset: 05-03-2022 Episodic Other aftercare (1 source) Other alf (current) drug therapy; 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: [OTH MCFP CURRENT DRUG THERAPY] Onset: 05-03-2022 Episodic Other aftercare (1 source) residential (current) use of oral hypoglycemic drugs; 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: [TECHNICAL TESTING ENGINEER USE ORAL HYPOGLYCEMIC DX] Onset: 05-03-2022 Episodic Other gastrointestinal disorders (3 sources) Diarrhea, unspecified; 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: [DIARRHEA UNSPECIFIED] Onset: 05-01-2022 Episodic Substance-related disorders (1 source) Nicotine dependence, cigarettes, uncomplicated; 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: [NICOTINE DEPEND CIGARETTES UNCOMP] Onset: 05-03-2022 Chronic Past or Other Problems Problem Classification Problem Date Documented Da te Episodic/Chronic E Codes: Natural/environment (1 source) Other and unspecified overexertion or strenuous movements or postures, initial encounter; 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: [OTH AND UNS OVREXRT/STRN MVMT/POS INT] Onset: 02-15-2022 Episodic Other injuries and conditions due to external causes (1 source) Unspecified injury of left ankle, initial encounter; 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: [UNSPECIFIED INJURY LT ANKLE INITIAL] Onset: 02-15-2022 Episodic Other non-traumatic joint disorders (3 sources) Pain in left ankle and joints of left foot; 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: [PAIN IN LEFT ANKLE] Onset: 02-14-2022 Episodic Results Test Name Value Interpretation Reference Range Facility Office Visiton 01-23-2023 Follow-up visit [id number] James Barros 1950 M Date Provider Department Center 01/23/2023 [id number] OLIVERA DIANA [facility] Family History Problem Relation Age of Onset Heart attack Maternal Grandfather Family Status - Relation Status Age at Maternal Grandfather Level of Service:71879 [place] OFFICE/OUTPATIENT ESTABLISHED MOD MDM 30-39 MIN Normal [facility] Office Visiton 08-15-2022 Follow-up visit [id number] James Barros 1950 M Date Provider Department Center 08/15/2022 [id number] PAZ DIANA [facility] No family history on file Level of Service:34190 [place] OFFICE/OUTPATIENT ESTABLISHED MOD MDM 30-39 MIN Reason for Visit and Comments: New Patient [632] Normal [facility] GLYCOHEMOGLOBIN A1Con 2022 ADA RECOMMENDATION SEE BELOW Normal [facility] Comment on above: Result Comment: ADA RECOMMENDED LIMIT 4.0 - 6.0 ADA THERAPEUTIC TARGET < 7.0 ACTION SUGGESTED > 7.0 Performed By: #### A 1C ####[facility] [id number] [place] [address]Dr. Vipul Jean Glucose [Mass/Vol] 197 mg/dL Normal [facility] Comment on above: Performed By: #### A 1C ####[facility] [id number] [place], [place] [address]YoNoelle Jean HbA1c (Bld) [Mass fraction] 8.5 % Critically high 4.5-6.2 [facility] Comment on above: Performed By: #### A 1C ####[facility] [id number] [place] [id number]. Vipul Jean AMYLASEon 05-01-2022 Amylase [Catalytic activity/Vol] 33 U/L Normal 25-115 [facility] Comment on above: Performed By: #### A MY, HSTROPN, LIPA, CMP #### [facility] [address] [place] [address] Dr. Vipul Jean CBC AUTO DIFFon 05-01-2022 BASO # 0.1 103/ul Normal 0.0-0.1 [facility] Comment on above: Performed By: #### C BC #### [facility] [address] [place] [address] Dr. Vipul Jean Basophils/100 WBC (Bld) 0.6 % Normal 0.2-2.0 [facility] Comment on above: Performed By: #### C BC #### [facility] [address] [place] [address] Dr. Vipul Jean EO # 0.1 103/ul Normal 0.0-0.7 [facility] Comment on above: Performed By: #### C BC #### [facility] [address] [place] [address] Dr. Vipul Jean Eosinophils/100 WBC (Bld) 1.4 % Normal 0.9-7.0 [facility] Comment on above: Performed By: #### C BC #### [facility] [address] [place] [address] Dr. Vipul Jean Erythrocyte distribution width (RBC) [Ratio] 12.2 % Normal 11.0-15.0 [facility] Comment on above: Performed By: #### C BC #### [facility] [address] [place] [address] Dr. Vipul Jean Hematocrit (Bld) [Volume fraction] 46.0 % Normal 42.0-54.0 [facility] Comment on above: Performed By: #### C BC #### [facility] [address] [place] [address] Dr. Vipul Jean Hemoglobin (Bld) [Mass/Vol] 16.7 g/dL Normal 14.0-18.0 [facility] Comment on above: Performed By: #### C BC #### [facility] [address] [place] [address] Dr. Vipul Jean IG # 0.04 10e3/ul Critically high 0.00-0.03 [facility] Comment on above: Performed By: #### C BC #### [facility] [address] [place] [address] Dr. Vipul Jean IG % 0.4 % Normal 0.0-0.5 [facility] Comment on above: Performed By: #### C BC #### [facility] [address] [place] [address] Dr. Vipul Jean LYMPH # 1.7 103/ul Normal 1.2-3.8 [facility] Comment on above: Performed By: #### C BC #### [facility] [address] [place] [address] Dr. Vipul Jean Lymphocytes/100 WBC (Bld) 18.7 % Critically low 20.5-60.0 [facility] Comment on above: Performed By: #### C BC #### [facility] [address] [place] [address] Dr. Vipul Jean MANUAL DIFF REQ NO Normal [facility] Comment on above: Performed By: #### C BC #### [facility] [address] [place] [address] Dr. Vipul Jean MCH (RBC) [Entitic mass] 33.3 pg Normal 25.9-34.0 [facility] Comment on above: Performed By: #### C BC #### [facility] [address] [place] [address] Dr. Vipul Jean MCHC (RBC) [Mass/Vol] 36.3 g/dL Critically high 29.9-35.2 [facility] Comment on above: Performed By: #### C BC #### [facility] [address] [place] [address] Dr. Vipul Jean MCV (RBC) [Entitic vol] 91.6 fL Normal 80.0-94.0 [facility] Comment on above: Performed By: #### C BC #### [facility] [address] [place] [address] Dr. Vipul Jean MONO # 0.6 103/ul Normal 0.3-0.8 [facility] Comment on above: Performed By: #### C BC #### [facility] [address] [address] [address] Vipul Jean Monocytes/100 WBC (Bld) 6.9 % Normal 1.7-12.0 [facility] Comment on above: Performed By: #### C BC #### [facility] [address] [address] [address] Vipul Jean NEUT # 6.5 103/ul Normal 1.4-6.[address] [facility] Comment on above: Performed By: #### C BC #### [facility] [address] [address] [address] Vipul Jean Neutrophils/100 WBC (Bld) 72.0 % Normal 43.0-75.0 [facility] Comment on above: Performed By: #### C BC #### [facility] [address] [place] [address] Dr. Vipul Jean Platelet mean volume (Bld) [Entitic vol] 10.5 fL Normal 9.5-13.5 [facility] Comment on above: Performed By: #### C BC #### [facility] [address] [address] [address] Vipul Jean PLT 125 103/ul Critically low 150-450 [facility] Comment on above: Performed By: #### C BC #### [facility] [address] [place] [address] Dr. Vpiul Jean RBC 5.02 106/ul Normal 4.70-6.[address] [facility] Comment on above: Performed By: #### C BC #### [facility] [address] [place] [address] Dr. Vipul Jean WBC 9.0 103/ul Normal 4.0-11.[address] [facility] Comment on above: Performed By: #### C BC #### [facility] [address] [place] [address] ABD/PELVIS WO CONon 05-01 CT ABD/PELVIS WO CON EXAMINATION: CT ABD/PELVIS WO CON, 05/01/2022 11:42 AM PST HISTORY: DIARRHEA, UNSPECIFIED COMPARISON: None. TECHNIQUE: CT scan of the abdomen and pelvis was performed without IV contrast. CT dose reduction technique was used, including Automated Exposure Control. FINDINGS: Lung: No significant finding. Liver: No significant finding. Gallbladder: Absent. Spleen: No significant finding. Pancreas: No significant finding. Adrenal glands: No significant finding. Kidneys, ureters and bladder: Multiple renal vascular calcifications. 2 mm right renal upper pole calculus. Bowel: Colonic diverticulosis, with questionable mild vascular engorgement/stranding at the sigmoid colon. Appendix is normal. Duodenal diverticulum. Peritoneum/retroperitoneu m: No significant finding. Lymph nodes: No significant finding. Vessels: Heavy atherosclerotic disease. Body wall: No significant finding. Reproductive: Prostatomegaly. Bones: No significant finding. IMPRESSION: Suspect very mild sigmoid diverticulitis. 2 mm nonobstructive right renal calculus. Electronically authenticated by: OHME MARX Date: 2022-05-01 15:31 Normal [facility] LIPASEon 05-01-2022 Lipase [Catalytic activity/Vol] 62.0 U/L Critically low 73.0-393.0 [facility] Comment on above: Performed By: #### A NICHOL HSTROPN, LIPA, CMP #### [facility] [address] [address] [address] Vipul Jean PROF 14(COMP METB)on 023 Albumin [Mass/Vol] 3.4 g/dL Normal 3.4-5.0 [facility] Comment on above: Performed By: #### A NICHOL HSTROPN, LIPA, CMP #### [facility] [address] [address] [address] Vipul Jean Albumin/Globulin [Mass ratio] 1.1 {ratio} Normal [facility] Comment on above: Performed By: #### A NICHOL HSTROPN, LIPA, CMP #### [facility] [address] [address] [address] Vipul Jean ALP [Catalytic activity/Vol] 93 U/L Normal 46-[address] [facility] Comment on above: Performed By: #### A NICHOL HSTROPN, LIPA, CMP #### [facility] [address] [address] [address] Vipul Jean ALT [Catalytic activity/Vol] 38 U/L Normal 16-[address] [facility] Comment on above: Performed By: #### A MY, HSTROPN, LIPA, CMP #### [facility] [address] [place] [address] Dr. Vipul Jean Anion gap [Moles/Vol] 10.6 mmol/L Normal [facility] Comment on above: Performed By: #### A MY, HSTROPN, LIPA, CMP #### [facility] [address] [place] [address] Dr. Vipul Jean AST [Catalytic activity/Vol] 29 U/L Normal 15-37 [facility] Comment on above: Performed By: #### A MY, HSTROPN, LIPA, CMP #### [facility] [address] [place] [address] Dr. Vipul Jean Bilirubin [Mass/Vol] 0.6 mg/dL Normal 0.2-1.0 [facility] Comment on above: Performed By: #### A MY, HSTROPN, LIPA, CMP #### [facility] [address] [place] [address] Dr. Vipul Jean Calcium [Mass/Vol] 10.0 mg/dL Normal 8.5-10.1 [facility] Comment on above: Performed By: #### A MY, HSTROPN, LIPA, CMP #### [facility] [address] [place] [address] Dr. Vipul Jean Chloride [Moles/Vol] 105 mmol/L Normal 98-[address] [facility] Comment on above: Performed By: #### A MY, HSTROPN, LIPA, CMP #### [facility] [address] [place] [address] Dr. Vipul Jean CO2 [Moles/Vol] 24.6 mmol/L Normal 21.0-32.0 [facility] Comment on above: Performed By: #### A MY, HSTROPN, LIPA, CMP #### [facility] [address] [address] [address] Vipul Jean Creatinine [Mass/Vol] 1.08 mg/dL Normal 0.70-1.30 [facility] Comment on above: Performed By: #### A MY, HSTROPN, LIPA, CMP #### [facility] [address] [address] [address] Vipul Jean EGFR-AF SPANISH >60 Normal >=60 [facility] Comment on above: Performed By: #### A MY, HSTROPN, LIPA, CMP #### [facility] [address] [place] [address] Dr. Vipul Jean EGFR-NON AF SPANISH >60 Normal >=60 [facility] Comment on above: Performed By: #### A MY, HSTROPN, LIPA, CMP #### [facility] [address] [place] [address] Dr. Vipul Jean Globulin (S) [Mass/Vol] 3.2 g/dL Normal [facility] Comment on above: Performed By: #### A MY, HSTROPN, LIPA, CMP #### [facility] [address] [place] [address] Dr. Vipul Jean Glucose [Mass/Vol] 215 mg/dL Critically high 74-[address] [facility] Comment on above: Performed By: #### A MY, HSTROPN, LIPA, CMP #### [facility] [address] [place] [address] Dr. Vipul Jean Potassium [Moles/Vol] 4.2 mmol/L Normal 3.5-5.1 [facility] Comment on above: Performed By: #### A MY, HSTROPN, LIPA, CMP #### [facility] [address] [place] [address] Dr. Vipul Jean Protein [Mass/Vol] 6.6 g/dL Normal 6.4-8.2 [facility] Comment on above: Performed By: #### A MY, HSTROPN, LIPA, CMP #### [facility] [address] [place] [address] Dr. Vipul Jean Sodium [Moles/Vol] 136 mmol/L Normal 136-145 [facility] Comment on above: Performed By: #### A NICHOL HSTROPN, LIPA, CMP #### [facility] [address] [place] [address] Dr. Vipul Jean Urea nitrogen [Mass/Vol] 16.0 mg/dL Normal 7.0-18.0 [facility] Comment on above: Performed By: #### A NICHOL, HSTROPN, LIPA, CMP #### [facility] [address] [place] [address] Dr. Vipul Jean Urea nitrogen/Creatinine [Mass ratio] 14.8 mg/mg Normal [facility] Comment on above: Performed By: #### A NICHOL HSTROPN, LIPA, CMP #### [facility] [address] [place] [address] Dr. Vipul Jean TROPONIN, HIGH SENSITIVITYon 05-01-2022 HSTROP 21.4 pg/mL Normal 4.0-76.1 [facility] Comment on above: Result Comment: CUT- OFF POINTS HAVE BEEN ESTABLISHED BASED ON THE FOURTH UNIVERSAL DEFINITIONS OF MYOCARDIAL INFARCTION. THE UPPER REFERENCE LIMIT (URL) OF TROPONIN, DEFINED THE 99TH PERCENTILE OF cTnI DISTRIBUTION IN A REFERENCE POPULATION, HAS BEEN CONFIRMED THE DECISION THRESHOLD FOR PA DIAGNOSIS. Performed By: #### A NICHOL, HSTROPN, LIPA, CMP #### [facility] [address] [place] [address] Dr. Vipul Jean CBC AUTO DIFFon 02-14-2022 BASO # 0.1 103/ul Normal 0.0-0.1 [facility] Comment on above: Performed By: #### C BC #### [facility] [address] [place] [address] Dr. Vipul Jean Basophils/100 WBC (Bld) 0.6 % Normal 0.2-2.0 [facility] Comment on above: Performed By: #### C BC #### [facility] [address] [place] [address] Dr. Vipul Jean EO # 0.1 103/ul Normal 0.0-0.7 [facility] Comment on above: Performed By: #### C BC #### [facility] [address] [place] [address] Dr. Vipul Jean Eosinophils/100 WBC (Bld) 1.6 % Normal 0.9-7.0 [facility] Comment on above: Performed By: #### C BC #### [facility] [address] [place] [address] Dr. Vipul Jean Erythrocyte distribution width (RBC) [Ratio] 12.1 % Normal 11.0-15.0 [facility] Comment on above: Performed By: #### C BC #### [facility] [address] [place] [address] Dr. Vipul Jean Hematocrit (Bld) [Volume fraction] 47.9 % Normal 42.0-54.0 [facility] Comment on above: Performed By: #### C BC #### [facility] [address] [place] [address] Dr. Vipul Jean Hemoglobin (Bld) [Mass/Vol] 17.1 g/dL Normal 14.0-18.0 [facility] Comment on above: Performed By: #### C BC #### [facility] [address] [place] [address] Dr. Vipul Jean IG # 0.03 10e3/ul Normal 0.00-0.03 [facility] Comment on above: Performed By: #### C BC #### [facility] [address] [place] [address] Dr. Vipul Jean IG % 0.4 % Normal 0.0-0.5 [facility] Comment on above: Performed By: #### C BC #### [facility] [address] [place] [address] Dr. Vipul Jean LYMPH # 1.8 103/ul Normal 1.2-3.[address] [facility] Comment on above: Performed By: #### C BC #### [facility] [address] [place] [address] Dr. Vipul Jean Lymphocytes/100 WBC (Bld) 22.4 % Normal 20.5-60.[address] [facility] Comment on above: Performed By: #### C BC #### [facility] [address] [place] [address] Dr. Vipul Jean MANUAL DIFF REQ NO Normal [facility] Comment on above: Performed By: #### C BC #### [facility] [address] [place] [address] Dr. Vipul Jean MCH (RBC) [Entitic mass] 33.0 pg Normal 25.9-34.0 [facility] Comment on above: Performed By: #### C BC #### [facility] [address] [place] [address] Dr. Vipul Jean MCHC (RBC) [Mass/Vol] 35.7 g/dL Critically high 29.9-35.2 [facility] Comment on above: Performed By: #### C BC #### [facility] [address] [place] [address] Dr. Vipul Jean MCV (RBC) [Entitic vol] 92.5 fL Normal 80.0-94.0 [facility] Comment on above: Performed By: #### C BC #### [facility] [address] [place] [address] Dr. Vipul Jean MONO # 0.6 103/ul Normal 0.3-0.8 [facility] Comment on above: Performed By: #### C BC #### [facility] [address] [place] [address] Dr. Vipul Jean Monocytes/100 WBC (Bld) 7.0 % Normal 1.7-12.0 [facility] Comment on above: Performed By: #### C BC #### [facility] [address] [place] [address] Dr. Vipul Jean NEUT # 5.5 103/ul Normal 1.4-6.[address] [facility] Comment on above: Performed By: #### C BC #### [facility] [address] [place] [address] Dr. Vipul Jean Neutrophils/100 WBC (Bld) 68.0 % Normal 43.0-75.0 [facility] Comment on above: Performed By: #### C BC #### [facility] [address] [address] [address] Vipul Jean Platelet mean volume (Bld) [Entitic vol] 11.0 fL Normal 9.5-13.5 [facility] Comment on above: Performed By: #### C BC #### [facility] [address] [place] [address] Dr. Vipul Jean PLT 101 103/ul Critically low 150-450 [facility] Comment on above: Performed By: #### C BC #### [facility] [address] [address] [address] Vipul Jean RBC 5.18 106/ul Normal 4.70-6.10 [facility] Comment on above: Performed By: #### C BC #### [facility] [address] [place] [address] Dr. Vipul Jean WBC 8.1 103/ul Normal 4.0-11.0 [facility] Comment on above: Performed By: #### C BC #### [facility] [address] [place] [address] Dr. Vipul Jean CRPon 02-14-2022 CRP [Mass/Vol] mg/L Normal <=1.0 [facility] Comment on above: Performed By: #### C RP, URIC #### [facility] [address] [place] [address] Dr. Vipul Jean URIC ACID SERUMon 02-14-2022 Urate [Mass/Vol] 4.4 mg/dL Normal 3.5-7.2 [facility] Comment on above: Performed By: #### C RP, URIC #### [facility] [address] [place] [address] Dr. Vipul Jean XR ANKLE LT MIN 3 Von 2021 XR ANKLE LT MIN 3 V X-RAY OF THE left an kle HISTORY: Traumatic injury COMPARISON: There are no previous studies available for comparison. TECHNIQUE: 3 views of the left ankle. FINDINGS: BONE DENSITY: Normal. JOINTS: No acute abnormality. FRACTURE: No acute fracture. DISLOCATION: None. SOFT TISSUES: No radiopaque foreign body. There are calcifications in the plantar foot. Vascular calcifications. IMPRESSION: No acute osseous or joint abnormality. Electronically authenticated by: NORY ALICIA Date: 2022-02-14 15:05 Normal [facility] CNOVSPon 06-15-2017 CNOVSP Visit (SP) Office (HEMAC[facility]) Ko BARROS ([id number]) 1950 MDate Time Provider Department06/15/17 3:45 PM CAREY TREVIÑO During your visit today, we recorded the following information about you: Temperature Pulse Respiration Blood pressure 97 degrees 53/minute 18/minute 149/69 Weight Height 92.8 kg 1.676 Baldemar Treviño MD 06/15/2017 3:50 PM SignedHPMehdisaritanano Barros is a 67 year old male who presents in consultation todayfor surgical clearance prior to circumcision on June 22, 2017. He has mildthrombocytopenia. His platelet count was found to be 127 on June 06.Chemistries appear normal except for a mild hypercalcemia with a calcium of10.8. His protime is normal as well as his PTT. From March 2017 hisplatelet count was 109. His calcium at that time was also elevated at 11.1.In January 2016 his platelet count was 128. He was also mildly hypercalcemicwith a calcium of 10.6. Today in consultation his platelet count is 116. Hehad cardiac bypass surgery 5 years ago and did well with this. He has neverhad any type of surgical bleeding. He denies hematuria, hematochezia,epistaxis, petechiae, purpura or excessively easy bruising.PAST MEDICAL HISTORYDiagnosis Date- Arthritis- Blindness- COPD (chronic obstructive pulmonary disease) (HCC)- Diabetes (HCC)- Hyperlipidemia- HypertensionPAST SURGICAL HISTORYProcedure Laterality Date- CABG (6) VENOUS GRAFTS ANDamp; ARTERIAL GRAFT(S)- CHOLECYSTECTOMY HX- CIRCUMCISION 06/06/2017 Dr. Carr HistorySubstance Use Topics- Smoking status: Current Some Day Smoker Types: Cigarettes- Smokeless tobacco: Never Used- Alcohol use NoFAMILY HISTORYProblem Relation Age of Onset- Diabetes MotherCurrent Outpatient Prescriptions:latanoprost (XALATAN) 0.005 % ophthalmic solutionmetoprolol tartrate, short acting, (LOPRESSOR) 25 mg tabletrosuvastatin (CRESTOR) 20 mg tabletsertraline (ZOLOFT) 100 mg tablettraZODone (DESYREL) 100 mg tablettraZODone (DESYREL) 50 mg tabletNo current facility-administered medications for this visit.ALLERGIESNo Known AllergiesREVIEW OF SYSTEMSGENERAL: No weight loss, malaise or fevers., SEE HPIHEENT: Negative for frequent or significant headaches, No changes in hearing orvision, no nose bleeds or other nasal problemsNECK: Negative for lumps, goiter, pain and significant neck swellingRESPIRATORY: Negative for cough, wheezing or shortness of breath.CARDIOVASCULAR: Negative for chest pain, leg swelling or palpitations.GI: Negative for abdominal discomfort, blood in stools or black stools orchange in bowel habitsMUSCULOSKELETAL: Negative for joint pain or swelling, back pain or muscle pain.SKIN: Negative for lesions, rash, and itching.PSYCH: Negative for sleep disturbance, mood disorder and recent psychosocialstressors.HEM ATOLOGY/LYMPHOLOGY: Negative for prolonged bleeding, bruising easily orswollen nodes.NEURO: No history of headaches, syncope, paralysis, seizures or tremorsAll other reviewed and negative other than HPI.PHYSICAL EXAM:BP 149/69 Pulse (!) 53 Temp 36.1 ?C (97 ?F) (Oral) Resp 18 Ht 167.6 cm(5' 6ANDquot;) Wt 92.8 kg (204 lb 9.6 oz) BMI 33.02 kg/e2Xuhtxom Appearance: alert and oriented, appearing in no acute distressSkin: skin color, texture, turgor normal, no suspicious rashes or lesions.Head: normal.Eyes: Anicteric sclera. Pupils are equally round. Extraocular movements areintact. .Ears: external ears normalNeck: Supple, no adenopathy; thyroid symmetric, normal size, no bruits.Back:no pain with ambulationLungs: good air exchange overallHeart: RRRAbdomen: No obvious evidence of rebound tenderness or guardingExtremities: Extremities normal. No deformities, edema, or skin discoloration.Good capillary refill..Musculoskeletal: Spine range of motion normal. Muscular strength intact.Peripheral Pulses: Normal.Neurologic: Gait normal. No gross cerebellar defectsPsychiatric: the patient has an appropriate affectHemoglobin (g/dL)Date Value06/15/2017 15.7 Hematocrit (%)Date Value06/15/2017 45.5 WBC (k/uL)Date Value06/15/2017 7.93 Platelet Count (k/uL)Date Value06/15/2017 116 ASSESSMENT/P TIMUR:1. Thrombocytopenia (HCC) - ICD9: 287.5, ICD10: D69.6 (primary diagnosis)The patient has mild thrombocytopenia and is cleared for surgery. He has hadcardiac bypass surgery 5 years ago and did well with this. He does not havethe clinical profile consistent with an inherited coagulopathy such as vonWillebrand's disease. His platelet count is mildly low and I suspect eitherfrom environmental or medication effect, ITP or even an early evolvingmyelodysplastic syndrome. His platelet count is just mildly low with a low riskprocedure. I would recommend he stay off aspirin prior to surgery. He iscleared for surgery at this time.He does have mild hypercalcemia which is asymptomatic at this time and stable.I suspect either primary hyperparathyroidism or potentially other causes suchas sarcoidosis. No work up is indicated at this time.- ABS GRAN CT + CBC (FOR REMOTE [facility] USE)2. S/P CABG x 5 - ICD9: V45.81, ICD10: Z95.1See above3. Undescended left testicle - ICD9: 752.51, ICD10: Q53.10See EDITH Ruizeferring Provider: AUDREY OSHEA [[id number]]Allergies As of Date: 06/15/2017(No Known Allergies)Date Reviewed: 06/15/2017Reviewed by: Liliane Molina - Fully AssessedReason for Visit: low platelets [Other] Cmt: new patient consultationPrimary Visit Diagnosis:Thrombocytopeni a (HCC) [D69.6] Other Visit Diagnoses: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 left testicle [Q53.10]Order(s):ABS GRAN CT + CBC (FOR REMOTE [facility] USE) [SQRAGCBC] Order #: [id number] FUTUREFollow-up and Disposition History RecordedPrescriptions as of 06/15/2017 Sig: LATANOPROST 0.005 % EYE DROPS METOPROLOL TARTRATE 25 MG TAB* ROSUVASTATIN 20 MG TABLET SERTRALINE 100 MG TABLET TRAZODONE 100 MG TABLET TRAZODONE 50 MG TABLETMedication notes this encounter LATANOPROST 0.005 % EYE DROPS >> July Jesse 06/15/2017 3:27 PM >> JESSE JulyJun 15, 2017 3:27 PM Received from: External Pharmacy METOPROLOL TARTRATE 25 MG TABLET >> July Jesse 06/15/2017 3:27 PM >> JESSE JulyJun 15, 2017 3:27 PM Received from: External Pharmacy ROSUVASTATIN 20 MG TABLET >> July Jesse 06/15/2017 3:27 PM >> JESSE JulyJun 15, 2017 3:27 PM Received from: External Pharmacy SERTRALINE 100 MG TABLET >> July Jesse 06/15/2017 3:27 PM >> JESSE JulyJun 15, 2017 3:27 PM Received from: External Pharmacy TRAZODONE 100 MG TABLET >> July Jesse 06/15/2017 3:27 PM >> JESSE JulyJun 15, 2017 3:27 PM Received from: External Pharmacy TRAZODONE 50 MG TABLET >> July Jesse 06/15/2017 3:27 PM >> JESSE JulyJun 15, 2017 3:27 PM Received from: External PharmacyProblem List As Of Date 06/15/2017 Noted Resolved Thrombocytopenia (HCC) [D69.6] INVALID FOR* S/P CABG x 5 [Z95.1] INVALID FOR* Undescended left testicle [Q53.10] INVALID FOR*Encounter Status:Closed by CAREY TREVIÑO MD on 06/15/17 [facility] PROGRESS HNO ID: [id number] thor: Carey Wells: (none)Author Type: PhysicianType: Progress NotesFiled: 06/15/2017 3:50 PMNote Text:HPIJames Barros is a 67 year old male who presents in consultationtoday for surgical clearance prior to circumcision on June 22, 2017. Hehas mild thrombocytopenia. His platelet count was found to be 127 onFebruary 20. Chemistries appear normal except for a mild hypercalcemiawith a calcium of 10.8. His protime is normal as well as his PTT. FromMarch 2017 his platelet count was 109. His calcium at that time wasalso elevated at 11.1. In January 2016 his platelet count was 128. Hewas also mildly hypercalcemic with a calcium of 10.6. Today inconsultation his platelet count is 116. He had cardiac bypass surgery 5years ago and did well with this. He has never had any type of surgicalbleeding. He denies hematuria, hematochezia, epistaxis, petechiae,purpura or excessively easy bruising.PAST MEDICAL HISTORYDiagnosis Date- Arthritis- Blindness- COPD (chronic obstructive pulmonary disease) (HCC)- Diabetes (HCC)- Hyperlipidemia- HypertensionPAST SURGICAL HISTORYProcedure Laterality Date- CABG (6) VENOUS GRAFTS AND ARTERIAL GRAFT(S)- CHOLECYSTECTOMY HX- CIRCUMCISION 06/06/2017 Dr. Coronadocial HistorySubstance Use Topics- Smoking status: Current Some Day Smoker Types: Cigarettes- Smokeless tobacco: Never Used- Alcohol use NoFAMILY HISTORYProblem Relation Age of Onset- Diabetes MotherCurrent Outpatient Prescriptions:latanoprost (XALATAN) 0.005 % ophthalmic solutionmetoprolol tartrate, short acting, (LOPRESSOR) 25 mg tabletrosuvastatin (CRESTOR) 20 mg tabletsertraline (ZOLOFT) 100 mg tablettraZODone (DESYREL) 100 mg tablettraZODone (DESYREL) 50 mg tabletNo current facility-administered medications for this visit.ALLERGIESNo Known AllergiesREVIEW OF SYSTEMSGENERAL: No weight loss, malaise or fevers., SEE HPIHEENT: Negative for frequent or significant headaches, No changes inhearing or vision, no nose bleeds or other nasal problemsNECK: Negative for lumps, goiter, pain and significant neck swellingRESPIRATORY: Negative for cough, wheezing or shortness of breath.CARDIOVASCULAR: Negative for chest pain, leg swelling or palpitations.GI: Negative for abdominal discomfort, blood in stools or black stools orchange in bowel habitsMUSCULOSKELETAL: Negative for joint pain or swelling, back pain or musclepain.SKIN: Negative for lesions, rash, and itching.PSYCH: Negative for sleep disturbance, mood disorder and recentpsychosocial stressors.HEMATOLOGY/LYMP HOLOGY: Negative for prolonged bleeding, bruising easily orswollen nodes.NEURO: No history of headaches, syncope, paralysis, seizures or tremorsAll other reviewed and negative other than HPI.PHYSICAL EXAM:BP 149/69 Pulse (!) 53 Temp 36.1 ?C (97 ?F) (Oral) Resp 18 Ht167.6 cm (5' 6 ) Wt 92.8 kg (204 lb 9.6 oz) BMI 33.02 kg/s4Afwkylh Appearance: alert and oriented, appearing in no acute distressSkin: skin color, texture, turgor normal, no suspicious rashes or lesions.Head: normal.Eyes: Anicteric sclera. Pupils are equally round. Extraocular movementsare intact. .Ears: external ears normalNeck: Supple, no adenopathy; thyroid symmetric, normal size, no bruits.Back:no pain with ambulationLungs: good air exchange overallHeart: RRRAbdomen: No obvious evidence of rebound tenderness or guardingExtremities: Extremities normal. No deformities, edema, or skindiscoloration. Good capillary refill..Musculoskeletal: Spine range of motion normal. Muscular strength intact.Peripheral Pulses: Normal.Neurologic: Gait normal. No gross cerebellar defectsPsychiatric: the patient has an appropriate affectHemoglobin (g/dL)Date Value06/15/2017 15.7 Hematocrit (%)Date Value06/15/2017 45.5 WBC (k/uL)Date Value06/15/2017 7.93 Platelet Count (k/uL)Date Value06/15/2017 116 ASSESSMENT/P TIMUR:1. Thrombocytopenia (HCC) - ICD9: 287.5, ICD10: D69.6 (primary diagnosis)The patient has mild thrombocytopenia and is cleared for surgery. He hashad cardiac bypass surgery 5 years ago and did well with this. He doesnot have the clinical profile consistent with an inherited coagulopathysuch as von Willebrand's disease. His platelet count is mildly low and Isuspect either from environmental or medication effect, ITP or even anearly evolving myelodysplastic syndrome. His platelet count is just mildlylow with a low risk procedure. I would recommend he stay off aspirinprior to surgery. He is cleared for surgery at this time.He does have mild hypercalcemia which is asymptomatic at this time andstable. I suspect either primary hyperparathyroidism or potentially othercauses such as sarcoidosis. No work up is indicated at this time.- ABS GRAN CT + CBC (FOR REMOTE [facility] USE)2. S/P CABG x 5 - ICD9: V45.81, ICD10: Z95.1See above3. Undescended left testicle - ICD9: 752.51, ICD10: Q53.10See Cruz Treviño MD Normal [facility] Remote Abs Gran + CBC (for [facility] use only)on 06-15-2017 Absol Gran Count 5.25 k/uL Normal 1.45-7.50 [facility] Erythrocyte distribution width Auto Ratio (RBC) 12.4 % Normal 11.5-15.0 [facility] Erythrocytes (RBC) 4.87 10*6/uL Normal 4.20-6.00 [facility] Hematocrit (HCT) 45.5 % Normal 39.0-51.0 [facility] Hemoglobin mass conc (Bld) 15.7 g/dL Normal 13.0-17.0 [facility] MCH 32.2 pG Normal 26.0-34.0 [facility] MCHC mass conc (RBC) 34.5 g/dL Normal 30.5-36.0 [facility] MCV 93.4 fL Normal 80.0-100.0 [facility] Platelet mean volume (PMV) 10.8 fL Normal 9.0-12.7 [facility] Platelets 116 10*3/uL Low 150-400 [facility] WBC (Leukocytes) 7.93 10*3/uL Normal 3.70-11.00 [facility] Encounters Encounter Date Encounter Type Care Provider Facility Start: 04-24-2023 End: 04-24-2023 ambulatory TERRANCE HORTON Not Available Start: 03-02-2023 End: 03-02-2023 ambulatory KARINA PARKINSON Not Available Start: 01-23-2023 End: 01-23-2023 ambulatory SARBJIT OLIVERA [facility] Start: 08-15-2022 End: 08-15-2022 ambulatory KATHY PAZ [facility] Start: 07-27-2022 End: 07-28-[address] TERRANCE HORTON Facility:[facility] Start: 05-01-2022 End: 05-01-[address] TERRANCE HORTON Facility:[facility] Start: 02-14-2022 End: 02-14-[address] TERRANCE HORTON Facility:[facility] Start: 06-15-2017 End: 06-16-2017 Ambulatory CAREY TREVIÑO [facility] Payers Date Payer Category Payer Medicare [id number] 1950 Unknown [id number] 2.16.84 [id number] 1950 Unknown [id number] 2.16.84 [id number] 1950 Unknown [id number] 2.16.84 [id number] 1950 Unknown [id number] 2.16.84 [id number] 1950 Unknown [id number] Progress note 01-23-2023 Note Date & Type Note Facility 01-23-2023 Note Patient here for 6 m o follow up CAD, hypertension, and hyperlipidemia. He was started on Crestor 40mg daily at last apt in August [address] Paz. Had labs and ECG in Nov 2022, as he was in the ED twice for dizziness. He was given RX for meclizine but has since run out. They will see PCP tomorrow for refills. states he hasn't been taking lisinopril or metoprolol for about the past 4 months. Patient states he feels dizzy most of the time . He denies chest pain, SOB, and LE edema. is requesting more tests on his circulation due to cold hands and feet. Patient denies claudication. Review of Systems Neurological: Positive for dizziness and light-headedness. All other systems reviewed and are negative. [facility] Progress note 01-23-2023 Note Date & Type Note Facility 01-23-2023 Note Cardiology Clinic No te Subjective James Barros is a 72 y.o. year old male patient with HTN, HLD, COPD, and CAD s/p CABG in 2010 seen in follow-up. Patient Active Problem List Diagnosis S/P CABG x 5 Thrombocytopenia ([facility]) Type 2 diabetes mellitus without complication, without long-term current use of insulin ([facility]) Undescended left testicle Family History Problem Relation Name Age of Onset Heart attack Maternal Grandfather Social History Tobacco Use Smoking status: Every Day Packs/day: 1.00 Types: Cigarettes Smokeless tobacco: Never Substance Use Topics Alcohol use: Not Currently HPI James Barros is a 72 y.o. male with a past medical history including HTN, HLD, COPD, and CAD s/p CABG in 2010. He was referred to Cardiology clinic to establish care because his previous finish filer (Dr. 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 Update: 08/15/2022 Patient adamantly denies any cardiac complaints or concerns. Patient denies any chest pain or shortness of breath. Patient denies any lower extremity edema, orthopnea, or proximal nocturnal dyspnea. No near-syncope or syncope. No dizziness or lightheadedness. He is fairly active physically and again he adamantly denies any angina or angina equivalents with exertion. Update: 01/23/2023 He has been experiencing dizziness He ran out of his Meclizine and has an upcoming appointment with Dr. Horton tomorrow Has pain in his thighs with ambulation reports he is forgetful and gets confused and frustrated Has not been taking BP meds due to hypotension Smoking about a ppd Review of Systems Cardiovascular: Positive for claudication. Negative for chest pain, dyspnea on exertion, irregular heartbeat, leg swelling, near-syncope, orthopnea, palpitations, paroxysmal nocturnal dyspnea and syncope. Neurological: Positive for dizziness. Objective Visit Vitals BP 143/67 (BP Location: Left arm, Patient Position: Sitting) Pulse 59 Ht 1.702 m (5' 7 ) Wt 81.6 kg (180 lb) SpO2 98% BMI 28.19 kg/m??? Smoking Status Every Day BSA 1.96 m??? Physical Exam General: Awake, alert, NAD Neck: No elevated JVP. No carotid bruit Pulm: Breath sounds clear to ascultation bilaterally with no wheeze, crackles or rhonchi Cards: Regular rate and rhythm, S1, S2. No S3 or S4 gallop. Murmur: none Extr: Lower extremity edema: None. Skin: warm, dry, well perfused Neuro: A&Ox3, No gross deficits Allergies No Known Allergies Medications Current Outpatient Medications: ARIPiprazole (Abilify) 2 mg tablet, Take 2 mg by mouth at bedtime., Disp: , Rfl: aspirin 81 mg EC tablet, Take 81 mg by mouth in the morning., Disp: , Rfl: metFORMIN (Glucophage) 500 mg tablet, Take 500 mg by mouth with breakfast and with evening meal., Disp: , Rfl: rosuvastatin (Crestor) 20 mg tablet, Take 40 mg by mouth in the morning., Disp: , Rfl: glipiZIDE XL (Glucotrol XL) 10 mg 24 hr tablet, Take 10 mg by mouth in the morning. Do not crush, chew, or split., Disp: , Rfl: lisinopril 5 mg tablet, Take 5 mg by mouth in the morning., Disp: , Rfl: metoprolol succinate XL (Toprol-XL) 25 mg 24 hr tablet, Take 25 mg by mouth in the morning and at bedtime. Do not crush or chew., Disp: , Rfl: metroNIDAZOLE (Flagyl) 500 mg tablet, Take 500 mg by mouth in the morning and at bedtime., Disp: , Rfl: rosuvastatin (Crestor) 40 mg tablet, Take 1 tablet (40 mg) by mouth in the morning., Disp: 90 tablet, Rfl: 3 Recent Labs 12/14/2022 WBC 11.9, hemoglobin 17.1, hematocrit 48.6, platelets 102 sodium 132, potassium 3.8, chloride 103, CO2 25.1, BUN 14, serum creatinine 1.22, estimated GFR is 58%, magnesium 1.8 Imaging and other tests Echo: 10/26/2022 Normal biventricular systolic function Mild mitral regurgitation Mild diastolic dysfunction CAB07/06/2010 Coronary artery bypass grafting x5 with left internal mammary artery to left anterior descending, sequential vein graft to diagonal and the obtuse marginal 2, vein graft to obtuse marginal 1, radial artery graft to the posterior descending artery Assessment Diagnoses and all orders for this visit: Coronary artery disease involving kenaitze coronary artery of kenaitze heart with angina pectoris ([facility]) Essential hypertension Mixed hyperlipidemia Hx of CABG Chronic obstructive pulmonary disease, unspecified COPD type ([facility]) Tobacco dependence Intermittent claudication ([facility]) Plan 1. Coronary artery disease -Multivessel coronary artery disease status post 5 vessel coronary artery bypass grafting, stable without anginal symptoms. He is maintained on aspirin, metoprolol succinate 25 mg, and rosuvastatin. 2. Hypertension - blood pressure is elevated here today. reports she has been holding his metoprolol and lisinopril due to hypotension at home with systolic blood pressures in the 110s. Advised to resume lisinopril 5 mg we will restart metoprolol at 25 mg daily instead of twice daily. (more content not included)... [facility] Progress note 08-15-2022 Note Date & Type Note Facility 08-15-2022 Note Cardiology Clinic No te Chief Complaint: establish care HPI: James Barors is a 72 y.o. male with a past medical history including HTN, HLD, COPD, and CAD s/p CABG in 2010. He is referred to Cardiology clinic to establish care because his previous finish filer (Dr. 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 Patient adamantly denies any cardiac complaints or concerns. Patient denies any chest pain or shortness of breath. Patient denies any lower extremity edema, orthopnea, or proximal nocturnal dyspnea. No near-syncope or syncope. No dizziness or lightheadedness. He is fairly active physically and again he adamantly denies any angina or angina equivalents with exertion. Cardiology ROS: GENERAL: Denies fever, chills, night sweats, weight loss. HEENT: Denies changes in vision, photophobia, changes in hearing, epistaxis, oral bleeding. CARDIOVASCULAR: Denies chest pain, exertional dyspnea, orthopnea/PND, lower extremity edema, palpitations, lightheadedness/dizziness. RESPIRATORY: Denies SOB, coughing, wheezing GI: Denies abdominal pain, nausea/vomiting, heartburn, melena/hematochezia. RENAL: Denies dysuria, hematuria, flank pain. MSK: Denies muscle weakness/pain, arthralgias/joint pain. NEUROLOGIC: Denies LOC, weakness, numbness, headaches. SKIN: Denies abnormal rashes or bleeding. PSYCH: Denies significant anxiety, depression, sleep disturbances. Past Medical History He has a past medical history of Coronary artery disease. Surgical History He has a past surgical history that includes Cardiac catheterization and Coronary artery bypass graft. Social History He reports that he has been smoking cigarettes. He has never used smokeless tobacco. No history on file for alcohol use and drug use. Family History No family history on file. Medications Current Outpatient Medications on File Prior to Visit Medication Sig Dispense Refill aspirin 81 mg EC tablet Take 81 mg by mouth in the morning. glipiZIDE XL (Glucotrol XL) 10 mg 24 hr tablet Take 10 mg by mouth in the morning. Do not crush, chew, or split. lisinopril 5 mg tablet Take 5 mg by mouth in the morning. metFORMIN (Glucophage) 500 mg tablet Take 500 mg by mouth with breakfast and with evening meal. metoprolol succinate XL (Toprol-XL) 25 mg 24 hr tablet Take 25 mg by mouth in the morning and at bedtime. Do not crush or chew. metroNIDAZOLE (Flagyl) 500 mg tablet Take 500 mg by mouth in the morning and at bedtime. rosuvastatin (Crestor) 20 mg tablet Take 20 mg by mouth in the morning. No current facility-administered medications on file prior to visit. Allergies Patient has no known allergies. Physical Exam VITAL SIGNS: BP 107/69 (BP Location: Left arm, Patient Position: Sitting, BP Cuff Size: Adult) Pulse 52 Ht 1.702 m (5' 7 ) Wt 85 kg (187 lb 4.8 oz) SpO2 99% BMI 29.34 kg/m??? Constitutional: Well developed, Well nourished, No acute distress, Non-toxic appearance. HENT: Normocephalic, Atraumatic, Bilateral external ears have normal appearance, Nose appears normal, nares are patent. Eyes: PERRLA, EOMI, Conjunctiva normal, No discharge. Neck: Normal range of motion, No tenderness, Supple, No stridor. No cervical lymphadenopathy noted. Cardiovascular: Normal heart rate, Normal rhythm, No murmurs, No rubs, No gallops. Thorax & Lungs: Normal breath sounds, No respiratory distress, No wheezing, No chest tenderness to palpation. Abdomen: Bowel sounds normal, Soft, Nontender, No masses, No pulsatile masses. Skin: Warm, Dry, No erythema, No rash. Back: No tenderness, No CVA tenderness. Extremities: Intact distal pulses, No edema, No tenderness, No cyanosis, No clubbing. Musculoskeletal: Grossly normal strength in extremities Neurologic: Alert & oriented x 3, no gross focal neurological deficits Psychiatric: Affect normal, Judgment normal, Mood normal. Impression: -CAD s/p CABG: no angina or anginal equivalents -HTN: well controlled -HLD: not currently on statin Plan: -Continue Aspirin, beta andree for CAD. Discussed risks/benefits of statin therapy with patient given his history of CAD. He is agreeable to starting statin. Will start resuvastatin 40 mg daily -Continue lisinopril and Toprol for HTN -Optimize medical management -Aggressive risk factor modification -Plan of care discussed with patient. All questions were answered. Patient voices understanding and is agreeable with current plan. -Patient was educated on red flag symptoms. Strict return precautions were provided. Patient verbalizes understanding -Follow-up in cardiology clinic in 6 months, or sooner as needed Thank you for allowing us to participate in the care of your patient. Please do not hesitate to contact cardiology with any questions or concerns. Kathy Paz MD Interventional Cardiology [facility] Summary Purpose Family History No Family History Records FoundNo Family History Records FoundNo Family History Records FoundNo Family History Records Found Advance Directives No Advanced Directives Records FoundNo Advanced Directives Records FoundNo Advanced Directives Records FoundNo Advanced Directives Records Found Additional Source Comments (unrecognized sect ion and content) No Status Records FoundNo Status Records FoundNo Status Records FoundNo Status Records Found INFORMATION SOURCE (unrecogn ized section and content) DATE CREATED AUTHOR 10/06/2017 [facility] DATE CREATED AUTHOR AUTHOR'S ORGANIZ ATION 08/01/2022 [facility] DATE CREATED AUTHOR AUTHOR'S ORGANIZ ATION 01/25/2023 [facility] DATE CREATED AUTHOR AUTHOR'S ORGANIZ ATION 04/25/2023 [facility] EPIC FOR RECORDS PERTAINING TO PATIENTS WHO ARE OR HAVE BEEN ENROLLED IN A CHEMICAL DEPENDENCY/SUBSTANCEABUSE PROGRAM, SOME INFORMATION MAY BE OMITTED. This clinical summary was aggregated from multiple sources. Caution should be exercised in using it in the provision of clinical care. This summary normalizes information from multiple sources, and as a consequence, information in this document may materially change the coding, format and clinical context of patient data. In addition, data may be omitted in some cases. CLINICAL DECISIONS SHOULD BE BASED ON THE PRIMARY CLINICAL RECORDS. [employer] provides no warranty or guarantee of the accuracy or completeness of information in this document.
[2023-05-02] MEDS: REGADENOSON 0.4 MG/5 ML SYRINGE IV (10:03)
--- NOTE | 2023-05-02 17:18 | P.STRESS_ITS ---
Stress Test Stress Test Allergies Allergy/AdvReac Type Severity Reaction Status Date / Time No Known Drug Allergies Allergy Verified 11/20/22 10:09 Requesting physician: Kenny Brown Procedure: Lexiscan Cardiolite stress test General Information: Reason for Stress Test: Fatigue, CAD Cardiac History and Risk Factors: Current smoker, s/p CABG x5. Resting 12 - Lead Electrocardiogram: Rate & rhythm: Normal sinus at a rate of 61. [place]: Left axis deviation T-waves: Flattened to inverted in III, aVL, and V3-V6 ST-segments: Normal orientation 1st degree AV block Right bundle branch block with a left anterior fascicular block Polymorphic PVCs Stress Test: Protocol: Juan Ramon protocol was initiated, but due to inability to walk on the treadmill, the exercise component was therefore canceled.? Testing was changed to Lexiscan protocol, with injection of 0.4mg Lexiscan IV push followed by Cardiolite. Blood pressure: Initial: 118/76, Maximum: 164/80 Rate & rhythm: Patient remained in sinus rhythm during the exercise and recovery portions of the study.? The maximum heart rate was 74, which was 50% of the ma ximum predicted heart rate 146. PVCs and a couplet were seen ST-segments & T-waves: 1 minute after injection of Lexiscan, there appeared to be very subtle ST segment downsloping in lead II & depression in lead III which resolved by 2 minutes. Patient response/symptoms: There were no symptoms similar to the chief complaint. Interpretation: Equivocal Lexiscan stress test. There was subtle ST segment downsloping and depression in leads II and III respectively, but it is difficult to interpret based on presence of right bundle branch block with a left anterior fascicular block. Cardiolite imaging interpretation will be reported separately. Clinical correlation required.?
== END 2023-05-02 08:38 | disposition home or self-care (01) ==
LOC: NM 08:38
PROVIDERS: PCP Family Medicine; Visit Provider Family Medicine
DX: R53.83 Other fatigue (principal); I25.10 Atherosclerotic heart disease of native coronary artery without angina pectoris; Z95.1 Presence of aortocoronary bypass graft
CPT/HCPCS: 78452; 93017; A9500; J2785

== ENCOUNTER 2023-05-22 12:28 | Inpatient (IN) | payer MEDICARE, SELFPAY ==
[2023-05-22] VITALS (43 sets, daily range): BP systolic 88–201; BP diastolic 52–92; PULSE 51–92; RESP 11–30; TEMP 36.3–37.1; O2SAT 75–100; BMI 26.6; BMI 27.5
--- OUTSIDE RECORDS SUMMARY | 2023-05-22 12:35 | XMS_ITS | CCD ---
Author Name Unknown Address [address] [place] [id number] Organization [facility] Care Team Providers Care Gold Assayer Name Role Phone CAREY TREVIÑO Unavailable Unavailable AUDREY OSHEA Unavailable Unavailable NADERER, DR TERRANCE Jones Primary Care Unavailable REINECK, DR GEO Carlson Admitting Unavailabl e REINECK, DR GEO Carlson Attending Unavailabl e GLORIA ., JUAN MANUEL [...] source) bee venom Drug allergy (disorder) [facility] Repository (1 source) Iodine (And Iodine Containting Drugs) Drug allergy (disorder) [facility] Repository Problems Active Problems Problem Classification Problem Date Documented Da te Episodic/Chronic Chronic obstructive pulmonary disease and bronchiectasis (2 sources) Chronic obstructive pulmonary disease, unspecified; 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: [Chronic obstructive pulmonary disease, unspecified] Onset: 01-23-2023 Chronic Coagulation and hemorrhagic disorders (1 source) Thrombocytopenia, unspecified; 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: [Thrombocytopenia, unspecified] Onset: 06-15-2017 Chronic Coronary atherosclerosis and other heart disease (3 sources) Atherosclerotic heart disease of algaaciq coronary artery without angina pectoris; 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: [Atherosclerotic heart disease of algaaciq coronary artery with unspecified angina pectoris] Onset: [...] Onset: 05-03-2022 Chronic Other aftercare (1 source) 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; 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] Onset: 05-03-2022 Episodic Other aftercare (1 source) Other fdc (current) drug therapy; 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: [OTH [facility] CURRENT DRUG THERAPY] Onset: 05-03-2022 Episodic Other aftercare (1 source) [facility]PC (current) use of oral hypoglycemic drugs; 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: [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 USE ORAL HYPOGLYCEMIC DX] Onset: 05-03-2022 Episodic [...] Range Facility Office Visiton 01-23-2023 Follow-up visit [id number] James Barros 1950 M Date Provider Department Center 01/23/2023 [id number] OLIVERA DIANA [facility] Family History Problem Relation Age of Onset Heart attack Maternal Grandfather Family Status - Relation Status Age at Maternal Grandfather Level of Service:93668 MI OFFICE/OUTPATIENT ESTABLISHED MOD MDM 30-39 MIN Normal [facility] Office Visiton 08-15-2022 Follow-up visit [id number] James Barros 1950 M Date Provider Department Center 08/15/2022 [id number] PAZ DIANA [facility] No family history on file Level of Service:60216 MI OFFICE/OUTPATIENT ESTABLISHED MOD MDM 30-39 MIN Reason for Visit and Comments: New Patient [632] Normal [facility] GLYCOHEMOGLOBIN A1Con 2022 ADA RECOMMENDATION SEE BELOW Normal [facility] Comment on above: Result Comment: ADA RECOMMENDED LIMIT 4.0 - 6.0 ADA THERAPEUTIC TARGET < 7.0 ACTION SUGGESTED > 7.0 Performed By: #### A 1C ####[facility] [id number] [place] [address]Dr. Vipul Jean Glucose [Mass/Vol] 197 mg/dL Normal [facility] Comment on above: Performed By: #### A 1C ####[facility] [address] [place], [place] [address]RdNoelle Jean HbA1c (Bld) [Mass fraction] 8.5 % Critically high 4.5-6.2 [facility] Comment on above: Performed By: #### A 1C ####[facility] [id number] [place] [id number]. Vipul Jean AMYLASEon 05-01-2022 Amylase [Catalytic activity/Vol] 33 U/L Normal 25-115 [facility] Comment on above: Performed By: #### A MY, HSTROPN, LIPA, CMP #### [facility] [address] [place] [address] Dr. Vipul Jean CBC AUTO DIFFon 05-01-2022 BASO # 0.1 103/ul Normal 0.0-0.1 [facility] Comment on above: Performed By: #### C BC #### [facility] [address] [place] [address] Dr. Vipul Jean Basophils/100 WBC (Bld) 0.6 % Normal 0.2-2.0 [facility] Comment on above: Performed By: #### C BC #### [facility] [address] [place] [address] Dr. Vipul Jean EO # 0.1 103/ul Normal 0.0-0.7 [facility] Comment on above: Performed By: #### C BC #### [facility] [address] [place] [address] Dr. Vipul Jean Eosinophils/100 WBC (Bld) 1.4 % Normal 0.9-7.0 [facility] Comment on above: Performed By: #### C BC #### [facility] [address] [place] [address] Dr. Vipul Jean Erythrocyte distribution width (RBC) [Ratio] 12.2 % Normal 11.0-15.0 [facility] Comment on above: Performed By: #### C BC #### [facility] [address] [place] [address] Dr. Vipul Jean Hematocrit (Bld) [Volume fraction] 46.0 % Normal 42.0-54.0 [facility] Comment on above: Performed By: #### C BC #### [facility] [address] [place] [address] Dr. Vipul Jean Hemoglobin (Bld) [Mass/Vol] 16.7 g/dL Normal 14.0-18.0 [facility] Comment on above: Performed By: #### C BC #### [facility] [address] [place] [address] Dr. Vipul Jean IG # 0.04 10e3/ul Critically high 0.00-0.03 [facility] Comment on above: Performed By: #### C BC #### [facility] [address] [place] [address] Dr. Vipul Jean IG % 0.4 % Normal 0.0-0.5 [facility] Comment on above: Performed By: #### C BC #### [facility] [address] [place] [address] Dr. Vipul Jean LYMPH # 1.7 103/ul Normal 1.2-3.8 [facility] Comment on above: Performed By: #### C BC #### [facility] [address] [place] [address] Dr. Vipul Jean Lymphocytes/100 WBC (Bld) 18.7 % Critically low 20.5-60.0 [facility] Comment on above: Performed By: #### C BC #### [facility] [address] [place] [address] Dr. Vipul Jean MANUAL DIFF REQ NO Normal [facility] Comment on above: Performed By: #### C BC #### [facility] [address] [place] [address] Dr. Vipul Jean MCH (RBC) [Entitic mass] 33.3 pg Normal 25.9-34.0 [facility] Comment on above: Performed By: #### C BC #### [facility] [address] [place] [address] Dr. Vipul Jean MCHC (RBC) [Mass/Vol] 36.3 g/dL Critically high 29.9-35.2 [facility] Comment on above: Performed By: #### C BC #### [facility] [address] [place] [address] Dr. Vipul Jean MCV (RBC) [Entitic vol] 91.6 fL Normal 80.0-94.0 [facility] Comment on above: Performed By: #### C BC #### [facility] [address] [place] [address] Dr. Vipul Jean MONO # 0.6 103/ul Normal 0.3-0.8 [facility] Comment on above: Performed By: #### C BC #### [facility] [address] [address] [address] Vipul Jean Monocytes/100 WBC (Bld) 6.9 % Normal 1.7-12.0 [facility] Comment on above: Performed By: #### C BC #### [facility] [address] [address] [address] Vipul Jean NEUT # 6.5 103/ul Normal 1.4-6.5 [facility] Comment on above: Performed By: #### C BC #### [facility] [address] [address] [address] Vipul Jean Neutrophils/100 WBC (Bld) 72.0 % Normal 43.0-75.0 [facility] Comment on above: Performed By: #### C BC #### [facility] [address] [place] [address] Dr. Vipul Jean Platelet mean volume (Bld) [Entitic vol] 10.5 fL Normal 9.5-13.5 [facility] Comment on above: Performed By: #### C BC #### [facility] [address] [address] [address] Vipul Jean PLT 125 103/ul Critically low 150-450 [facility] Comment on above: Performed By: #### C BC #### [facility] [address] [place] [address] Dr. Vipul Jean RBC 5.02 106/ul Normal 4.70-6.10 [facility] Comment on above: Performed By: #### C BC #### [facility] [address] [place] [address] Dr. Vipul Jean WBC 9.0 103/ul Normal 4.0-11.0 [facility] Comment on above: Performed By: #### C BC #### [facility] [address] [place] [address] ABD/PELVIS WO CONon [...] nonobstructive right renal calculus. Electronically authenticated by: HOME MARX Date: 2022-05-01 15:31 Normal [facility] LIPASEon 05-01-2022 Lipase [Catalytic activity/Vol] 62.0 U/L Critically low 73.0-393.0 [facility] Comment on above: Performed By: #### A NICHOL HSTROPN, LIPA, CMP #### [facility] [address] [address] [address] Vipul Jean PROF 14(COMP METB)on 023 Albumin [Mass/Vol] 3.4 g/dL Normal 3.4-5.0 [facility] Comment on above: Performed By: #### A NICHOL HSTROPN, LIPA, CMP #### [facility] [address] [address] [address] Vipul Jean Albumin/Globulin [Mass ratio] 1.1 {ratio} Normal [facility] Comment on above: Performed By: #### A NICHOL HSTROPN, LIPA, CMP #### [facility] [address] [address] [address] Vipul Jean ALP [Catalytic activity/Vol] 93 U/L Normal 46-116 [facility] Comment on above: Performed By: #### A NICHOL HSTROPN, LIPA, CMP #### [facility] [address] [address] [address] Vipul Jean ALT [Catalytic activity/Vol] 38 U/L Normal 16-63 [facility] Comment on above: Performed By: #### A MY, HSTROPN, LIPA, CMP #### [facility] [address] [place] [address] Dr. Vipul Jean Anion gap [Moles/Vol] 10.6 mmol/L Normal [facility] Comment on above: Performed By: #### A MY, HSTROPN, LIPA, CMP #### [facility] [address] [place] [address] Dr. Vipul Jean AST [Catalytic activity/Vol] 29 U/L Normal 15-37 [facility] Comment on above: Performed By: #### A MY, HSTROPN, LIPA, CMP #### [facility] [address] [place] [address] Dr. Vipul Jean Bilirubin [Mass/Vol] 0.6 mg/dL Normal 0.2-1.0 [facility] Comment on above: Performed By: #### A MY, HSTROPN, LIPA, CMP #### [facility] [address] [place] [address] Dr. Vipul Jean Calcium [Mass/Vol] 10.0 mg/dL Normal 8.5-10.1 [facility] Comment on above: Performed By: #### A MY, HSTROPN, LIPA, CMP #### [facility] [address] [place] [address] Dr. Vipul Jean Chloride [Moles/Vol] 105 mmol/L Normal 98-107 [facility] Comment on above: Performed By: #### A MY, HSTROPN, LIPA, CMP #### [facility] [address] [place] [address] Dr. Vipul Jean CO2 [Moles/Vol] 24.6 mmol/L Normal 21.0-32.0 [facility] [place] Comment on above: Performed By: #### A MY, HSTROPN, LIPA, CMP #### [facility] [address] [address] [address] Vipul Jean Creatinine [Mass/Vol] 1.08 mg/dL Normal 0.70-1.30 [facility] Comment on above: Performed By: #### A MY, HSTROPN, LIPA, CMP #### [facility] [address] [address] [address] Vipul Jean EGFR-AF [place] CITIZ[place] >60 Normal >=60 [facility] Comment on above: Performed By: #### A MY, HSTROPN, LIPA, CMP #### [facility] [address] [place] [address] Dr. Vipul Jean EGFR-NON AF [place]IZ[place] >60 Normal >=60 [facility] Comment on above: Performed By: #### A MY, HSTROPN, LIPA, CMP #### [facility] [address] [place] [address] Dr. Vipul Jean Globulin (S) [Mass/Vol] 3.2 g/dL Normal [facility] Comment on above: Performed By: #### A MY, HSTROPN, LIPA, CMP #### [facility] [address] [place] [address] Dr. Vipul Jean Glucose [Mass/Vol] 215 mg/dL Critically high 74-106 [facility] Comment on above: Performed By: #### A MY, HSTROPN, LIPA, CMP #### [facility] [address] [place] [address] Dr. Vipul Jean Potassium [Moles/Vol] 4.2 mmol/L Normal 3.5-5.1 [facility] Comment on above: Performed By: #### A MY, HSTROPN, LIPA, CMP #### [facility] [address] [place] [address] Dr. Vipul Jean Protein [Mass/Vol] 6.6 g/dL Normal 6.4-8.2 [facility] Comment on above: Performed By: #### A MY, HSTROPN, LIPA, CMP #### [facility] [address] [place] [address] Dr. Vipul Jean Sodium [Moles/Vol] 136 mmol/L Normal 136-145 [facility] Comment on above: Performed By: #### A NICHOL HSTROPN, LIPA, CMP #### [facility] [address] [place] [address] Dr. Vipul Jean Urea nitrogen [Mass/Vol] 16.0 mg/dL Normal 7.0-18.0 [facility] Comment on above: Performed By: #### A NICHOL, HSTROPN, LIPA, CMP #### [facility] [address] [place] [address] Dr. Vipul Jean Urea nitrogen/Creatinine [Mass ratio] 14.8 mg/mg Normal [facility] Comment on above: Performed By: #### A NICHOL HSTROPN, LIPA, CMP #### [facility] [address] [place] [address] Dr. Vipul Jean TROPONIN, HIGH SENSITIVITYon 05-01-2022 HSTROP 21.4 pg/mL Normal 4.0-76.1 [facility] Comment on above: Result Comment: CUT- OFF POINTS HAVE BEEN ESTABLISHED BASED ON THE FOURTH UNIVERSAL DEFINITIONS OF MYOCARDIAL INFARCTION. THE UPPER REFERENCE LIMIT (URL) OF TROPONIN, DEFINED THE 99TH PERCENTILE OF cTnI DISTRIBUTION IN A REFERENCE POPULATION, HAS BEEN CONFIRMED THE DECISION THRESHOLD FOR AK DIAGNOSIS. Performed By: #### A NICHOL, HSTROPN, LIPA, CMP #### [facility] [address] [place] [address] Dr. Vipul Jean CBC AUTO DIFFon 02-14-2022 BASO # 0.1 103/ul Normal 0.0-0.1 [facility] Comment on above: Performed By: #### C BC #### [facility] [address] [place] [address] Dr. Vipul Jean Basophils/100 WBC (Bld) 0.6 % Normal 0.2-2.0 [facility] Comment on above: Performed By: #### C BC #### [facility] [address] [place] [address] Dr. Vipul Jean EO # 0.1 103/ul Normal 0.0-0.7 [facility] Comment on above: Performed By: #### C BC #### [facility] [address] [place] [address] Dr. Vipul Jean Eosinophils/100 WBC (Bld) 1.6 % Normal 0.9-7.0 [facility] Comment on above: Performed By: #### C BC #### [facility] [address] [place] [address] Dr. Vipul Jean Erythrocyte distribution width (RBC) [Ratio] 12.1 % Normal 11.0-15.0 [facility] Comment on above: Performed By: #### C BC #### [facility] [address] [place] [address] Dr. Vipul Jean Hematocrit (Bld) [Volume fraction] 47.9 % Normal 42.0-54.0 [facility] Comment on above: Performed By: #### C BC #### [facility] [address] [place] [address] Dr. Vipul Jean Hemoglobin (Bld) [Mass/Vol] 17.1 g/dL Normal 14.0-18.0 [facility] Comment on above: Performed By: #### C BC #### [facility] [address] [place] [address] Dr. Vipul Jean IG # 0.03 10e3/ul Normal 0.00-0.03 [facility] Comment on above: Performed By: #### C BC #### [facility] [address] [place] [address] Dr. Vipul Jean IG % 0.4 % Normal 0.0-0.5 [facility] Comment on above: Performed By: #### C BC #### [facility] [address] [place] [address] Dr. Vipul Jean LYMPH # 1.8 103/ul Normal 1.2-3.8 [facility] Comment on above: Performed By: #### C BC #### [facility] [address] [place] [address] Dr. Vipul Jean Lymphocytes/100 WBC (Bld) 22.4 % Normal 20.5-60.0 [facility] Comment on above: Performed By: #### C BC #### [facility] [address] [place] [address] Dr. Vipul Jean MANUAL DIFF REQ NO Normal [facility] Comment on above: Performed By: #### C BC #### [facility] [address] [place] [address] Dr. Vipul Jean MCH (RBC) [Entitic mass] 33.0 pg Normal 25.9-34.0 [facility] Comment on above: Performed By: #### C BC #### [facility] [address] [place] [address] Dr. Vipul Jean MCHC (RBC) [Mass/Vol] 35.7 g/dL Critically high 29.9-35.2 [facility] Comment on above: Performed By: #### C BC #### [facility] [address] [place] [address] Dr. Vipul Jean MCV (RBC) [Entitic vol] 92.5 fL Normal 80.0-94.0 [facility] Comment on above: Performed By: #### C BC #### [facility] [address] [place] [address] Dr. Vipul Jean MONO # 0.6 103/ul Normal 0.3-0.8 [facility] Comment on above: Performed By: #### C BC #### [facility] [address] [place] [address] Dr. Vipul Jean Monocytes/100 WBC (Bld) 7.0 % Normal 1.7-12.0 [facility] Comment on above: Performed By: #### C BC #### [facility] [address] [place] [address] Dr. Vipul Jean NEUT # 5.5 103/ul Normal 1.4-6.5 [facility] Comment on above: Performed By: #### C BC #### [facility] [address] [place] [address] Dr. Vipul Jean Neutrophils/100 WBC (Bld) 68.0 % Normal 43.0-75.0 [facility] Comment on above: Performed By: #### C BC #### [facility] [address] [address] [address] Vipul Jean Platelet mean volume (Bld) [Entitic vol] 11.0 fL Normal 9.5-13.5 [facility] Comment on above: Performed By: #### C BC #### [facility] [address] [place] [address] Dr. Vipul Jean PLT 101 103/ul Critically low 150-450 [facility] Comment on above: Performed By: #### C BC #### [facility] [address] [address] [address] Vipul Jean RBC 5.18 106/ul Normal 4.70-6.10 [facility] Comment on above: Performed By: #### C BC #### [facility] [address] [place] [address] Dr. Vipul Jean WBC 8.1 103/ul Normal 4.0-11.0 [facility] Comment on above: Performed By: #### C BC #### [facility] [address] [place] [address] Dr. Vipul Jean CRPon 02-14-2022 CRP [Mass/Vol] mg/L Normal <=1.0 [facility] Comment on above: Performed By: #### C RP, URIC #### [facility] [address] [place] [address] Dr. Vipul Jean URIC ACID SERUMon 02-14-2022 Urate [Mass/Vol] 4.4 mg/dL Normal 3.5-7.2 [facility] Comment on above: Performed By: #### C RP, URIC #### [facility] [address] [place] [address] Dr. Vipul Jean XR ANKLE LT MIN [...] by: NORY ALICIA Date: 2022-02-14 15:05 Normal [facility] CNOVSPon 06-15-2017 CNOVSP Visit (SP) Office ([facility]) Ko BARROS ([id number]) 1950 MDate Time Provider Department06/15/17 3:45 PM [...] kg (204 lb 9.6 oz) BMI 33.02 kg/x9Iatjsdx Appearance: alert and oriented, appearing in no [...] ABS GRAN CT + CBC (FOR REMOTE [facility] USE)2. S/P CABG x 5 - ICD9: V45.81, ICD10: Z95.1See above3. Undescended left testicle - ICD9: 752.51, ICD10: Q53.10See EDITH Ruizeferring Provider: AUDREY OSHEA [[id number]]Allergies As of Date: 06/15/2017(No Known Allergies)Date Reviewed: 06/15/2017Reviewed by: Liliane Molina - Fully AssessedReason for Visit: low platelets [Other] Cmt: new patient consultationPrimary Visit Diagnosis:Thrombocytopeni a (HCC) [D69.6] Other Visit Diagnoses: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 left testicle [Q53.10]Order(s):ABS GRAN CT + CBC (FOR REMOTE [facility] USE) [SQRAGCBC] Order #: [id number] FUTUREFollow-up and Disposition History RecordedPrescriptions as of [...] by CAREY TREVIÑO MD on 06/15/17 [facility] PROGR[facility] HNO ID: [id number] thor: [place]: (none)Author Type: PhysicianType: Progress [...] kg (204 lb 9.6 oz) BMI 33.02 kg/k6Mswmkgh Appearance: alert and oriented, appearing in no [...] ABS GRAN CT + CBC (FOR REMOTE [facility] USE)2. S/P CABG x 5 - ICD9: V45.81, ICD10: Z95.1See above3. Undescended left testicle - ICD9: 752.51, ICD10: Q53.10See Cruz Treviño MD Normal [facility] Remote Abs Gran + CBC (for [facility] use only)on 06-15-2017 Absol Gran Count 5.25 k/uL Normal 1.45-7.50 [facility] Erythrocyte distribution width Auto Ratio (RBC) 12.4 % Normal 11.5-15.0 [facility] Erythrocytes (RBC) 4.87 10*6/uL Normal 4.20-6.00 [facility] Hematocrit (HCT) 45.5 % Normal 39.0-51.0 [facility] Hemoglobin mass conc (Bld) 15.7 g/dL Normal 13.0-17.0 [facility] MCH 32.2 pG Normal 26.0-34.0 [facility] MCHC mass conc (RBC) 34.5 g/dL Normal 30.5-36.0 [facility] MCV 93.4 fL Normal 80.0-100.0 [facility] Platelet mean volume (PMV) 10.8 fL Normal 9.0-12.7 [facility] Platelets 116 10*3/uL Low 150-400 [facility] WBC (Leukocytes) 7.93 10*3/uL Normal 3.70-11.00 [facility] Encounters Encounter Date Encounter Type Care Provider Facility Start: 04-24-2023 End: 04-24-2023 ambulatory TERRANCE HORTON Not Available Start: 03-02-2023 End: 03-02-2023 ambulatory KARINA PARKINSON Not Available Start: 01-23-2023 End: 01-23-2023 ambulatory SARBJIT OLIVERA [facility] Start: 08-15-2022 End: 08-15-2022 ambulatory KATHY PAZ [facility] Start: 07-27-2022 End: 07-28-[address] TERRANCE HORTON Facility:[facility] Start: 05-01-2022 End: 05-01-[address] TERRANCE HORTON Facility:[facility] Start: 02-14-2022 End: 02-14-[address] TERRANCE HORTON Facility:[facility] Start: 06-15-2017 End: 06-16-2017 Ambulatory CAREY TREVIÑO [facility] Payers Date Payer Category Payer Medicare [id number] 1950 Unknown [id number] 2.16.84 [id number] 1950 Unknown [id number] 2.16.84 [id number] 1950 Unknown [id number] 2.16.84 [id number] 1950 Unknown [id number] 2.16.84 [id number] 1950 Unknown [id number] Progress note 01-23-2023 Note Date & Type [...] All other systems reviewed and are negative. [facility] Progress note 01-23-2023 Note Date & Type Note Facility 01-23-2023 Note Cardiology Clinic No te Subjective James Barros is a 72 y.o. year old male patient with HTN, HLD, COPD, and CAD s/p CABG in 2010 seen in follow-up. Patient Active Problem List Diagnosis S/P CABG x 5 Thrombocytopenia ([facility]) Type 2 diabetes mellitus without complication, without long-term current use of insulin (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 Update: 08/15/2022 Patient adamantly [...] for this visit: Coronary artery disease involving algaaciq coronary artery of algaaciq heart with angina pectoris ([facility]) Essential hypertension Mixed hyperlipidemia Hx of CABG Chronic obstructive pulmonary disease, unspecified COPD type ([facility]) Tobacco dependence Intermittent claudication ([facility]) Plan 1. Coronary artery disease -Multivessel coronary [...] of twice daily. (more content not included)... [facility] Progress note 08-15-2022 Note Date & Type Note Facility 08-15-2022 Note Cardiology Clinic No te Chief Complaint: establish care HPI: James Barros is a 72 y.o. male with a past medical history including HTN, HLD, COPD, and CAD s/p CABG in 2010. 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 Patient adamantly denies any [...] or concerns. Kathy Paz MD Interventional Cardiology [facility] Summary Purpose Family History No Family [...] section and content) DATE CREATED AUTHOR 10/06/2017 [facility] DATE CREATED AUTHOR AUTHOR'S ORGANIZ ATION 08/01/2022 [facility] DATE CREATED AUTHOR AUTHOR'S ORGANIZ ATION 01/25/2023 [facility] DATE CREATED AUTHOR AUTHOR'S ORGANIZ ATION 04/25/2023 [facility] EPIC FOR RECORDS [...] BE BASED ON THE PRIMARY CLINICAL RECORDS. [employer] provides no warranty or guarantee of the accuracy or completeness of information in this document.
--- NOTE | 2023-05-22 12:44 | ECG_ITS ---
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1950 Requested By: 1030 Order Number: [id number] Reading MD: SHINE ELLISON Measurements Intervals [place] Rate: 60 P: 58 [place]: 254 QRS: -65 QRSD: 150 T: 101 QT: 426 QTc: 427 Interpretive Statements 1100 Sinus rhythm 1570 with occasional ventricular premature complexes 2231 First degree AV block 2330 Nonspecific intraventricular conduction block 3534 Lateral myocardial infarction, age undetermined 3633 Inferior myocardial infarction, probably old 9150 abnormal ECG Compared to ECG 12/14/2022 17:39:17 Ventricular premature complex(es) now present Myocardial infarct finding still present Electronically Signed On 05-25-2023 5:30:14 EST by SHINE ELLISON
--- NOTE | 2023-05-22 12:44 | CT_ITS ---
The [address] [address] Patient Name: JAMES POPE MRN: [id number] date: 1950 Sex: M Assigned Patient Location: ER Current Patient Location: ER Accession/Order Number: [id number] Exam Date: 05/22/2023 13:03 Report Date: 05/22/2023 13:20 At the request of: SHIRIN ANGELES Procedure: CT head/brain wo con CT head/brain wo con, 05/22/2023 1:03 PM EST INDICATION: Confusion COMPARISON: Noncontrast CT of the head 12/14/2022, 11/20/2022 TECHNIQUE: Axial CT images of the brain from skull base to vertex, including portions of the face and sinuses, were obtained without contrast. Multiplanar reformatted images were generated and reviewed as needed. FINDINGS: No intracranial mass, hydrocephalus, midline shift or acute hemorrhage. No extra-axial collection. Global cortical atrophy. Periventricular and deep white matter microvascular ischemic change. Laurent-white matter differentiation is preserved. Remote bilateral cerebellar infarcts. Mucous retention cyst left maxillary sinus. The remaining paranasal sinuses and mastoid air cells are clear. Orbits are within normal limits. No acute skull fracture. CT/CT head/brain wo con IMPRESSION: No acute intracranial abnormality. Electronically authenticated by: YOON ANN Date: 05/22/2023 13:20
--- NOTE | 2023-05-22 12:44 | XR_ITS ---
The [address] [address] Patient Name: JAMES POPE MRN: [id number] date: 1950 Sex: M Assigned Patient Location: ER Current Patient Location: ER Accession/Order Number: [id number] Exam Date: 05/22/2023 13:03 Report Date: 05/22/2023 13:27 At the request of: SHIRIN ANGELES Procedure: XR chest 1V EXAM: XR chest 1V HISTORY: Chest pain COMPARISON: Chest study dated 04/13/2018 TECHNIQUE: AP view of the chest was obtained with portable technique at 1:05 PM. FINDINGS: Heart and mediastinal contours are unremarkable in appearance. No acute infiltrate or consolidations are seen. Small calcified granuloma suggested in the right upper lung field. No obvious pneumothorax. Faint increased density at the level of the right mid/upper lung field felt to be related to the anterior right first rib. Postoperative sternotomy wires are noted. Bony structures appear grossly intact. XR/XR chest 1V IMPRESSION: No acute process seen in the chest. Electronically authenticated by: ETHAN LUZ Date: 05/22/2023 13:27
--- NOTE | 2023-05-22 12:44 | ED.GENADUL1 ---
HPI - General Adult General Chief complaint: Chest Pain Stated complaint: CHEST PAIN Time Seen by Provider: 05/22/23 12:39 Source: patient Mode of arrival: Wheelchair Limitations: no limitations History of Present Illness HPI narrative: 72-year-old male presents to the emergency department for intermittent chest pain. He has been having that for a week and a half. The patient had a stress test here. His also states he has been a bit confused and has been seeing things that are not there such as a car in their parking spot and an owl in the window. He got upset when she told him those things were not there. He has not had a fever or vomiting. He does not have chest pain now. Related Data Home Medications Medication Instructions Recorded Confirmed aspirin 81 mg tablet,delayed 81 mg PO DAILY 11/20/22 05/22/23 release (Adult Aspirin Regimen) metformin 500 mg tablet 500 mg PO DAILY 11/20/22 05/22/23 rosuvastatin 20 mg tablet 40 mg PO DAILY 11/20/22 05/22/23 aripiprazole 2 mg tablet 2 mg PO .qhs 05/22/23 05/22/23 lisinopril 10 1 tab PO QDAY 05/22/23 05/22/23 mg-hydrochlorothiazide 12.5 mg tablet Previous Rx's Medication Instructions Recorded meclizine 25 mg tablet 25 mg PO TID PRN dizziness #20 tabs 11/20/22 Allergies Allergy/AdvReac Type Severity Reaction Status Date / Time No Known Drug Allergies Allergy Verified 11/20/22 10:09 Review of Systems ROS Narrative A ten point review of systems is negative except as noted above. PFSH PFS Social History Smoking status: Heavy tobacco smoker Exam Narrative Exam Narrative: Nurses note and vital signs reviewed and patient is not hypoxic. General: The patient appears well and in no apparent distress. Patient is resting comfortably on cart. Skin: Warm, dry, no pallor noted. There is no rash noted. Head: Normocephalic, atraumatic Eye: Normal conjunctiva, no drainage Ears, Nose, Mouth, and Throat: oral mucosa is moist. Nares patent. Cardiovascular: Regular Rate and Rhythm Respiratory: Patient is in no distress, no accessory muscle use, lungs are clear to auscultation, no wheezing, rales or rhonchi Back: non-tender GI: Soft and nontender Musculoskeletal: The patient has no evidence of calf tenderness, no pitting edema, symmetrical pulses noted bilaterally Neurological: Awake and alert. He knows his name and that he is at [facility] but he does not know the year. He knows why he is here. Psychiatric: Cooperative Constitutional Vital Signs, click to edit/add: Last Vital Signs Temp 97.4 F L 05/22/23 12:32 Pulse 53 L 05/22/23 15:10 Resp 21 05/22/23 15:10 BP 135/68 05/22/23 15:00 Pulse Ox 97 05/22/23 14:45 O2 Del Method Room Air 05/22/23 12:32 Course Vital Signs Vital signs: Vital Signs Temperature 97.4 F L 05/22/23 12:32 Pulse Rate 62 05/22/23 12:32 Respiratory Rate 16 05/22/23 12:32 Blood Pressure 115/68 05/22/23 12:32 Pulse Oximetry 98 05/22/23 12:32 Oxygen Delivery Method Room Air 05/22/23 12:32 Temperature 97.4 F L 05/22/23 12:32 Pulse Rate 53 L 05/22/23 15:10 Respiratory Rate 21 05/22/23 15:10 Blood Pressure 135/68 05/22/23 15:00 Pulse Oximetry 97 05/22/23 14:45 Oxygen Delivery Method Room Air 05/22/23 12:32 Medical Decision Making MDM Narrative Medical decision making narrative: 2 sets of troponin are negative. His stress test a few weeks ago was not normal. He has been having visual hallucinations and has been having them here. He is frequently trying to get out of bed as well. Findings are discussed with the patient and his and he is being admitted. Heart score is 4. Differential Diagnosis Differential Diagnosis: Unstable angina, myocardial infarction, chest pain, dementia Lab Data Lab results reviewed: Yes I reviewed the patient's lab results Labs: Lab Results 05/22/23 05/22/23 05/22/23 Range/Units 12:50 14:17 14:54 WBC 7.5 (4.0-11.0) 10^3/uL RBC 5.21 (4.70-6.10) 10^6/uL Hgb 17.4 (14.0-18.0) g/dL Hct 48.2 (42.0-54.0) % MCV 92.5 (80.0-94.0) fL MCH 33.4 (25.9-34.0) pg MCHC 36.1 H (29.9-35.2) g/dL RDW 11.7 (11.0-15.0) % Plt Count 123 L (150-450) 10^3/uL MPV 11.0 (9.5-13.5) fL Neut % (Auto) 59.6 (43.0-75.0) % Lymph % (Auto) 28.9 (20.5-60.0) % [place] % (Auto) 8.6 (1.7-12.0) % Eos % (Auto) 2.1 (0.9-7.0) % Baso % (Auto) 0.7 (0.2-2.0) % Neut # (Auto) 4.5 (1.4-6.5) 10^3/uL Lymph # (Auto) 2.2 (1.2-3.8) 10^3/uL [place] # (Auto) 0.6 (0.3-0.8) 10^3/uL Eos # (Auto) 0.2 (0.0-0.7) 10^3/uL Baso # (Auto) 0.1 (0.0-0.1) 10^3/uL Abs Immat Gran (auto) 0.01 (0.00-0.03) 10^3/uL Imm/Tot Granulo (auto) 0.1 (0.0-0.5) % Sodium 130 L (136-145) mmol/L Potassium 3.7 (3.5-5.1) mmol/L Chloride 93 L (98-107) mmol/L Carbon Dioxide 28.9 (21.0-32.0) mmol/L Anion Gap 11.8 BUN 19.0 H (7.0-18.0) mg/dL Creatinine 1.18 (0.70-1.30) mg/dL Est GFR ( Amer) >60 (>=60) Est GFR (Non-Af Amer) >60 (>=60) BUN/Creatinine Ratio 16.1 Glucose 285 H (74-106) mg/dL Calcium 10.9 H (8.5-10.1) mg/dL Troponin I High Sens 27.0 24.1 (4.0-76.1) pg/mL Urine Color Lt. yellow (YELLOW) Urine Clarity Clear (CLEAR) Urine pH 6.0 (5.0-9.0) Ur Specific [place] <=1.005 A (1.005-1.025) Urine Protein 30 A (NEG/TRACE) mg/dL Urine Glucose (UA) 500 A (NEGATIVE) mg/dL Urine Ketones Negative (NEGATIVE) mg/dL Urine Occult Blood Negative (NEGATIVE) Urine Nitrite Negative (NEGATIVE) Urine Bilirubin Negative (NEGATIVE) Urine Urobilinogen 0.2 (0.2-1.0) EU/dL Ur Leukocyte Esterase Negative (NEGATIVE) Imaging Data Chest x-ray: Radiologist's impression: ITS Impressions Chest X-Ray 05/22/23 12:44 IMPRESSION: No acute process seen in the chest. Electronically authenticated by: ETHAN LUZ Date: 05/22/2023 13:[address] 05/22/23 12:44 IMPRESSION: No acute intracranial abnormality. Electronically authenticated by: YOON ANN Date: 05/22/2023 13:20 ECG Data Attestation: I personally reviewed and interpreted this ECG as follows: (EKG on my interpretation shows no acute findings) Discharge Plan Discharge Chief Complaint: Chest Pain Clinical Impression: Visual hallucinations, Chest pain Patient Disposition: Admitted As Inpatient Time of Disposition Decision: 15:54 Condition: Good
[2023-05-22 13:06] LABS: Anion Gap 11.8; BUN Creatinine Ratio 16.1; Basophils Absolute Auto 0.1 10^3/uL (0.0-0.1); Basophils Percent Auto 0.7 % (0.2-2.0); Calcium 10.9 mg/dL (8.5-10.1); Carbon Dioxide 28.9 mmol/L (21.0-32.0); Chloride 93 mmol/L (98-107); Eosinophils Absolute Auto 0.2 10^3/uL (0.0-0.7); Eosinophils Percent Auto 2.1 % (0.9-7.0); Estimated GFR (African America >60 (>=60); Estimated GFR (Non-African Ame >60 (>=60); Glucose 285 mg/dL (74-106); Hematocrit 48.2 % (42.0-54.0); Hemoglobin 17.4 g/dL (14.0-18.0); Immature Granulocytes Abs Auto 0.01 10^3/uL (0.00-0.03); Immature Granulocytes Pct Auto 0.1 % (0.0-0.5); Lymphocytes Absolute Auto 2.2 10^3/uL (1.2-3.8); Lymphocytes Percent Auto 28.9 % (20.5-60.0); Mean Corpuscular HGB Conc 36.1 g/dL (29.9-35.2); Mean Corpuscular Hemoglobin 33.4 pg (25.9-34.0); Mean Corpuscular Volume 92.5 fL (80.0-94.0); Monocytes Absolute Auto 0.6 10^3/uL (0.3-0.8); Monocytes Percent Auto 8.6 % (1.7-12.0); Neutrophils Absolute Auto 4.5 10^3/uL (1.4-6.5); Neutrophils Percent Auto 59.6 % (43.0-75.0); Platelet Count 123 10^3/uL (150-450); Potassium 3.7 mmol/L (3.5-5.1); Red Blood Count 5.21 10^6/uL (4.70-6.10); Red Cell Distribution Width 11.7 % (11.0-15.0); Sodium 130 mmol/L (136-145); White Blood Count 7.5 10^3/uL (4.0-11.0)
[2023-05-22 14:44] LABS: Troponin I High Sensitivity 24.1 pg/mL (4.0-76.1)
[2023-05-22 15:07] LABS: Bilirubin Urine NEGATIVE (NEGATIVE); Blood Urine NEGATIVE (NEGATIVE); Clarity Urine CLEAR (CLEAR); Color Urine LT. YELLOW (YELLOW); Glucose Urine UA 500 mg/dL (NEGATIVE); Ketones Urine NEGATIVE (NEGATIVE); Leukocyte Esterase Urine NEGATIVE (NEGATIVE); Nitrite Urine NEGATIVE (NEGATIVE); Protein Urine 30 mg/dL (NEG/TRACE); Specific Gravity Urine <=1.005 (1.005-1.025); Urobilinogen Urine 0.2 EU/dL (0.2-1.0)
--- NOTE | 2023-05-22 16:06 | ECG_ITS ---
The 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
[2023-05-22 16:23] LABS: Bacteria Urine NONE SEEN #/HPF (NONE SEEN); Cast Seen? NONE SEEN #/LPF (NONE SEEN); Crystals Seen? None Seen #/HPF (None Seen); Mucus Urine NONE SEEN (NONE SEEN); RBC Urine 0-2 #/HPF (0-2); Squamous Epithelial Cell Urine NONE SEEN #/LPF (NONE/RARE); WBC Urine NONE SEEN #/HPF (NONE SEEN)
[2023-05-22 17:26] LABS: Glucometer 216 mg/dL (74-106)
--- NOTE | 2023-05-22 18:11 | PC.NURSE ---
Patient requiring frequent reorientation to time, place, and situation. Web Design Intern and nurse manager family were notified that patient may need a one to one for safety purposes as he keeps trying to get out of bed. Physician was notified that patient had arrived on unit at 1625, no admission orders were placed at this time. Call placed to physician, Dr. Manuelito Carr, and left detailed message requesting a call back to clarify if he was taking care of patient or if another physician was managing. Web Design Intern was also noticed that still awaiting orders from physician.
[2023-05-22] MEDS: HALOPERIDOL LACTATE 5 MG/ML VIAL 2 MG IV (18:31)
[2023-05-22 19:36] LABS: Ammonia 33 umol/L (11-32)
[2023-05-22 19:43] LABS: Troponin I High Sensitivity 30.3 pg/mL (4.0-76.1)
--- NOTE | 2023-05-22 20:38 | P.HP_ITS ---
H&P: HPI History of Present Illness Chief complaint: CHEST PAIN, Visual Hallucinations Narrative: Patient presented to the emergency room with chest pain. Also has been having more visual hallucinations. Does not sound he is had any olfactory or auditory hallucinations but difficult to assess secondary to his dementia. Patient will be admitted to the intensive care unit due to the chest pain. Review of Systems ROS Status of ROS 10 or more systems reviewed and unremark able except as noted in history and below [facility] Social History Smoking status: Heavy tobacco smoker Highest level of school completed/degree received: Associate degree: occupational, technical, vocational program Meds Home Medications and Allergies Home Medications Medication Instructions Recorded Confirmed Type aspirin 81 mg tablet,delayed 81 mg PO DAILY 11/20/22 05/22/23 History release (Adult Aspirin Regimen) metformin 500 mg tablet 1,000 mg PO BIDWM 11/20/22 05/22/23 History rosuvastatin 20 mg tablet 20 mg PO DAILY 11/20/22 05/22/23 History aripiprazole 5 mg tablet 5 mg PO .qhs 05/22/23 05/22/23 History lisinopril 10 1 tab PO QDAY 05/22/23 05/22/23 History mg-hydrochlorothiazide 12.5 mg tablet meclizine 25 mg tablet 25 mg PO QID PRN dizziness 05/22/23 05/22/23 History Allergies Allergy/AdvReac Type Severity Reaction Status Date / Time No Known Drug Allergies Allergy Verified 11/20/22 10:09 Exam Constitutional Vital Signs, click to edit/add: Last Vital Signs Temp 98.8 F 05/22/23 19:29 Pulse 58 L 05/22/23 20:07 Resp 18 05/22/23 20:07 BP 183/92 H 05/22/23 19:29 Pulse Ox 97 05/22/23 19:29 O2 Del Method Room Air 05/22/23 19:29 Documenting provider has reviewed patient's vital signs: yes Common normals: no apparent distress Respiratory Common normals: normal respiratory effort Cardio Common normals: regular rate and regular rhythm GI Common normals: Normal to inspection, nondistended, normoactive bowel sounds present Neuro Common normals: CN's II-XII intact bilaterally and moves all extremities; not oriented x3 Results Labs Labs: Short CBC 05/22/23 Range/Units 12:50 WBC 7.5 (4.0-11.0) 10^3/uL Hgb 17.4 (14.0-18.0) g/dL Hct 48.2 (42.0-54.0) % Plt Count 123 L (150-450) 10^3/uL BMP 05/22/23 12:50 Sodium 130 L Potassium 3.7 Chloride 93 L Carbon Dioxide 28.9 BUN 19.0 H Creatinine 1.18 Glucose 285 H Calcium 10.9 H Urine 05/22/23 Range/Units 14:54 Urine Color Lt. yellow (YELLOW) Urine Clarity Clear (CLEAR) Urine pH 6.0 (5.0-9.0) Ur Specific [place] <=1.005 A (1.005-1.025) Urine Protein 30 A (NEG/TRACE) mg/dL Urine Glucose (UA) 500 A (NEGATIVE) mg/dL Assessment and Plan Assessment and Plan (1) Chest pain: (2) Visual hallucinations: Plan Uncontrolled hypertension with chest pain, check echocardiogram and serial cardiac markers, consult to cardiology Thrombocytopenia-monitor daily Hyponatremia-monitor daily Dementia-May need further adjustment medications, consult to teleneurology NIDDM-insulin sliding scale With initial symptom being the chest pain. The altered mental status. Likely just a progression of his dementia consult to telemetry cardiology and teleneurology change patient to observation status currently. It is a possibility as can be a prolonged course to improve or resolve his altered mental status and visual hallucinations, possible change to inpatient status tomorrow Urinary Catheter Management Urinary Catheter Management Straight: Cath placed during this visit: no
[2023-05-22 20:55] LABS: Glucometer 243 mg/dL (74-106)
[2023-05-22] MEDS: INSULIN ASPART 300 UNIT/3 ML PEN SUBQ (21:19)
[2023-05-22] MEDS: ARIPIPRAZOLE 5 MG TABLET PO (21:19)
[2023-05-23] VITALS (103 sets, daily range): BP systolic 93–150; BP diastolic 61–72; PULSE 52–102; RESP 0–29; TEMP 36.4–36.8; O2SAT 93–100; BMI 27.5
[2023-05-23 04:26] LABS: Basophils Absolute Auto 0.1 10^3/uL (0.0-0.1); Basophils Percent Auto 0.5 % (0.2-2.0); Eosinophils Absolute Auto 0.1 10^3/uL (0.0-0.7); Eosinophils Percent Auto 0.9 % (0.9-7.0); Hematocrit 45.9 % (42.0-54.0); Immature Granulocytes Abs Auto 0.03 10^3/uL (0.00-0.03); Immature Granulocytes Pct Auto 0.3 % (0.0-0.5); Lymphocytes Absolute Auto 1.9 10^3/uL (1.2-3.8); Lymphocytes Percent Auto 20.9 % (20.5-60.0); Mean Corpuscular HGB Conc 34.9 g/dL (29.9-35.2); Mean Corpuscular Hemoglobin 32.7 pg (25.9-34.0); Mean Corpuscular Volume 93.9 fL (80.0-94.0); Mean Platelet Volume 10.6 fL (9.5-13.5); Monocytes Absolute Auto 0.8 10^3/uL (0.3-0.8); Monocytes Percent Auto 8.9 % (1.7-12.0); Neutrophils Absolute Auto 6.3 10^3/uL (1.4-6.5); Neutrophils Percent Auto 68.5 % (43.0-75.0); Platelet Count 115 10^3/uL (150-450); Red Blood Count 4.89 10^6/uL (4.70-6.10); Red Cell Distribution Width 11.8 % (11.0-15.0); White Blood Count 9.2 10^3/uL (4.0-11.0)
[2023-05-23 04:54] LABS: Alanine Aminotransferase 27 U/L (16-63); Albumin Globulin Ratio 1.1; Albumin Level 3.6 g/dL (3.4-5.0); Alkaline Phosphatase 93 U/L (46-116); Anion Gap 9.6; Aspartate Amino Transferase 22 U/L (15-37); BUN Creatinine Ratio 14.4; Bilirubin Total 1.2 mg/dL (0.2-1.0); Calcium 10.7 mg/dL (8.5-10.1); Carbon Dioxide 27.5 mmol/L (21.0-32.0); Chloride 99 mmol/L (98-107); Estimated GFR (African America >60 (>=60); Estimated GFR (Non-African Ame >60 (>=60); Globulin 3.4 g/dL; Glucose 156 mg/dL (74-106); Potassium 4.1 mmol/L (3.5-5.1); Sodium 132 mmol/L (136-145); Troponin I High Sensitivity 48.6 pg/mL (4.0-76.1)
--- OUTSIDE RECORDS SUMMARY | 2023-05-23 06:46 | XMS_ITS | CCD ---
Author Name Unknown Address [address] [facility] [address] [place] [id number] Organization [facility] Care Team Providers Care Import Coordinator Name Role Phone CAREY TREVIÑO Unavailable Unavailable [...] venom Drug allergy (disorder) [facility] Repository (1 source) Iodine (And Iodine Containting Drugs) Drug allergy (disorder) [facility] Rep[facility] Problems Active Problems Problem Classification Problem Date Documented Da te Episodic/Chronic Chronic obstructive pulmonary disease and bronchiectasis (2 sources) Chronic obstructive pulmonary disease, unspecified; 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: [Chronic obstructive pulmonary disease, unspecified] Onset: 01-23-2023 Chronic Coagulation and hemorrhagic disorders (1 source) Thrombocytopenia, unspecified; 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: [Thrombocytopenia, unspecified] Onset: 06-15-2017 Chronic Coronary atherosclerosis and other heart disease (3 sources) Atherosclerotic heart disease of [place] coronary artery without angina pectoris; 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: [Atherosclerotic heart disease of [place] coronary artery with unspecified angina pectoris] Onset: [...] Onset: 05-03-2022 Chronic Other aftercare (1 source) 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; 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: [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] Onset: 05-03-2022 Episodic Other aftercare (1 source) Other usp (current) drug therapy; 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: [OTH ALF CURRENT DRUG THERAPY] Onset: 05-03-2022 Episodic Other aftercare (1 source) retirement (current) use of oral hypoglycemic drugs; 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: [REGIONAL 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 DIRECTOR USE ORAL HYPOGLYCEMIC DX] Onset: 05-03-2022 Episodic [...] Range Facility Office Visiton 01-23-2023 Follow-up visit [id number] James Barros 1950 M Date Provider Department Center 01/23/2023 [id number] OLIVERA DIANA [facility] Family History Problem Relation Age of Onset Heart attack Maternal Grandfather Family Status - Relation Status Age at Maternal Grandfather Level of Service:54860 ID OFFICE/OUTPATIENT ESTABLISHED MOD MDM 30-39 MIN Normal [facility] Office Visiton 08-15-2022 Follow-up visit [id number] James Barros 1950 M Date Provider Department Center 08/15/2022 [id number] PAZ DIANA [facility] No family history on file Level of Service:24863 ID OFFICE/OUTPATIENT ESTABLISHED MOD MDM 30-39 MIN Reason for Visit and Comments: New Patient [632] Normal [facility] GLYCOHEMOGLOBIN A1Con 2022 ADA RECOMMENDATION SEE BELOW Normal [facility] Comment on above: Result Comment: ADA RECOMMENDED LIMIT 4.0 - 6.0 ADA THERAPEUTIC TARGET < 7.0 ACTION SUGGESTED > 7.0 Performed By: #### A 1C ####[facility] [address] [address]Dr. Vipul Jean Glucose [Mass/Vol] 197 mg/dL Normal [facility] Comment on above: Performed By: #### A 1C ####[facility] [address] [place], [place] [address]KgNoelle Jean HbA1c (Bld) [Mass fraction] 8.5 % Critically high 4.5-6.2 [facility] Comment on above: Performed By: #### A 1C ####[facility] [address] [id number]. Vipul Jean AMYLASEon 05-01-2022 Amylase [Catalytic activity/Vol] 33 U/L Normal 25-115 [facility] Comment on above: Performed By: #### A MY, HSTROPN, LIPA, CMP #### [facility] [address] [place] [address] Dr. Vipul Jean CBC AUTO DIFFon 05-01-2022 BASO # 0.1 103/ul Normal 0.0-0.1 [facility] Comment on above: Performed By: #### C BC #### [facility] [address] [place] [address] Dr. Vipul Jean Basophils/100 WBC (Bld) 0.6 % Normal 0.2-2.0 [facility] Comment on above: Performed By: #### C BC #### [facility] [address] [place] [address] Dr. Vipul Jean EO # 0.1 103/ul Normal 0.0-0.7 [facility] Comment on above: Performed By: #### C BC #### [facility] [address] [place] [address] Dr. Vipul Jean Eosinophils/100 WBC (Bld) 1.4 % Normal 0.9-7.0 [facility] Comment on above: Performed By: #### C BC #### [facility] [address] [place] [address] Dr. Vipul Jean Erythrocyte distribution width (RBC) [Ratio] 12.2 % Normal 11.0-15.0 [facility] Comment on above: Performed By: #### C BC #### [facility] [address] [place] [address] Dr. Vipul Jean Hematocrit (Bld) [Volume fraction] 46.0 % Normal 42.0-54.0 [facility] Comment on above: Performed By: #### C BC #### [facility] [address] [place] [address] Dr. Vipul Jean Hemoglobin (Bld) [Mass/Vol] 16.7 g/dL Normal 14.0-18.0 [facility] Comment on above: Performed By: #### C BC #### [facility] [address] [place] [address] Dr. Vipul Jean IG # 0.04 10e3/ul Critically high 0.00-0.03 [facility] Comment on above: Performed By: #### C BC #### [facility] [address] [place] [address] Dr. Vipul Jean IG % 0.4 % Normal 0.0-0.5 [facility] Comment on above: Performed By: #### C BC #### [facility] [address] [place] [address] Dr. Vipul Jean LYMPH # 1.7 103/ul Normal 1.2-3.8 [facility] Comment on above: Performed By: #### C BC #### [facility] [address] [place] [address] Dr. Vipul Jean Lymphocytes/100 WBC (Bld) 18.7 % Critically low 20.5-60.0 [facility] Comment on above: Performed By: #### C BC #### [facility] [address] [place] [address] Dr. Vipul Jean MANUAL DIFF REQ NO Normal [facility] Comment on above: Performed By: #### C BC #### [facility] [address] [place] [address] Dr. Vipul Jean MCH (RBC) [Entitic mass] 33.3 pg Normal 25.9-34.0 [facility] Comment on above: Performed By: #### C BC #### [facility] [address] [place] [address] Dr. Vipul Jean MCHC (RBC) [Mass/Vol] 36.3 g/dL Critically high 29.9-35.2 [facility] Comment on above: Performed By: #### C BC #### [facility] [address] [place] [address] Dr. Vipul Jean MCV (RBC) [Entitic vol] 91.6 fL Normal 80.0-94.0 [facility] Comment on above: Performed By: #### C BC #### [facility] [address] [place] [address] Dr. Vipul Jean MONO # 0.6 103/ul Normal 0.3-0.8 [facility] Comment on above: Performed By: #### C BC #### [facility] [address] [address] [address] Vipul Jean Monocytes/100 WBC (Bld) 6.9 % Normal 1.7-12.0 [facility] Comment on above: Performed By: #### C BC #### [facility] [address] [address] [address] Vipul Jean NEUT # 6.5 103/ul Normal 1.4-6.5 [facility] Comment on above: Performed By: #### C BC #### [facility] [address] [address] [address] Vipul Jean Neutrophils/100 WBC (Bld) 72.0 % Normal 43.0-75.0 [facility] Comment on above: Performed By: #### C BC #### [facility] [address] [place] [address] Dr. Vipul Jean Platelet mean volume (Bld) [Entitic vol] 10.5 fL Normal 9.5-13.5 [facility] Comment on above: Performed By: #### C BC #### [facility] [address] [address] [address] Vipul Jean PLT 125 103/ul Critically low 150-450 [facility] Comment on above: Performed By: #### C BC #### [facility] [address] [place] [address] Dr. Vipul Jean RBC 5.02 106/ul Normal 4.70-6.10 [facility] Comment on above: Performed By: #### C BC #### [facility] [address] [place] [address] Dr. Vipul Jean WBC 9.0 103/ul Normal 4.0-11.0 [facility] Comment on above: Performed By: #### C BC #### [facility] [address] [place] [address] ABD/PELVIS WO CONon [...] by: HOME MARX Date: 2022-05-01 15:31 Normal [facility] LIPASEon 05-01-2022 Lipase [Catalytic activity/Vol] 62.0 U/L Critically low 73.0-393.0 [facility] Comment on above: Performed By: #### A NICHOL HSTROPN, LIPA, CMP #### [facility] [address] [address] [address] Vipul Jean PROF 14(COMP METB)on 023 Albumin [Mass/Vol] 3.4 g/dL Normal 3.4-5.0 [facility] Comment on above: Performed By: #### A NICHOL HSTROPN, LIPA, CMP #### [facility] [address] [address] [address] Vipul Jean Albumin/Globulin [Mass ratio] 1.1 {ratio} Normal [facility] Comment on above: Performed By: #### A NICHOL HSTROPN, LIPA, CMP #### [facility] [address] [address] [address] Vipul Jean ALP [Catalytic activity/Vol] 93 U/L Normal 46-116 [facility] Comment on above: Performed By: #### A NICHOL HSTROPN, LIPA, CMP #### [facility] [address] [address] [address] Vipul Jean ALT [Catalytic activity/Vol] 38 U/L Normal 16-63 [facility] Comment on above: Performed By: #### A MY, HSTROPN, LIPA, CMP #### [facility] [address] [place] [address] Dr. Vipul Jean Anion gap [Moles/Vol] 10.6 mmol/L Normal [facility] Comment on above: Performed By: #### A MY, HSTROPN, LIPA, CMP #### [facility] [address] [place] [address] Dr. Vipul Jean AST [Catalytic activity/Vol] 29 U/L Normal 15-37 [facility] Comment on above: Performed By: #### A MY, HSTROPN, LIPA, CMP #### [facility] [address] [place] [address] Dr. Vipul Jean Bilirubin [Mass/Vol] 0.6 mg/dL Normal 0.2-1.0 [facility] Comment on above: Performed By: #### A MY, HSTROPN, LIPA, CMP #### [facility] [address] [place] [address] Dr. Vipul Jean Calcium [Mass/Vol] 10.0 mg/dL Normal 8.5-10.1 [facility] Comment on above: Performed By: #### A MY, HSTROPN, LIPA, CMP #### [facility] [address] [place] [address] Dr. Vipul Jean Chloride [Moles/Vol] 105 mmol/L Normal 98-107 [facility] Comment on above: Performed By: #### A MY, HSTROPN, LIPA, CMP #### [facility] [address] [place] [address] Dr. Vipul Jean CO2 [Moles/Vol] 24.6 mmol/L Normal 21.0-32.0 [facility] Comment on above: Performed By: #### A MY, HSTROPN, LIPA, CMP #### [facility] [address] [address] [address] Vipul Jean Creatinine [Mass/Vol] 1.08 mg/dL Normal 0.70-1.30 [facility] Comment on above: Performed By: #### A MY, HSTROPN, LIPA, CMP #### [facility] [address] [address] [address] Vipul Jean EGFR-AF CYPRIOT >60 Normal >=60 [facility] Comment on above: Performed By: #### A MY, HSTROPN, LIPA, CMP #### [facility] [address] [place] [address] Dr. Vipul Jean EGFR-NON AF CYPRIOT >60 Normal >=60 [facility] Comment on above: Performed By: #### A MY, HSTROPN, LIPA, CMP #### [facility] [address] [place] [address] Dr. Vipul Jean Globulin (S) [Mass/Vol] 3.2 g/dL Normal [facility] Comment on above: Performed By: #### A MY, HSTROPN, LIPA, CMP #### [facility] [address] [place] [address] Dr. Vipul Jean Glucose [Mass/Vol] 215 mg/dL Critically high 74-106 [facility] Comment on above: Performed By: #### A MY, HSTROPN, LIPA, CMP #### [facility] [address] [place] [address] Dr. Vipul Jean Potassium [Moles/Vol] 4.2 mmol/L Normal 3.5-5.1 [facility] Comment on above: Performed By: #### A MY, HSTROPN, LIPA, CMP #### [facility] [address] [place] [address] Dr. Vipul Jean Protein [Mass/Vol] 6.6 g/dL Normal 6.4-8.2 [facility] Comment on above: Performed By: #### A MY, HSTROPN, LIPA, CMP #### [facility] [address] [place] [address] Dr. Vipul Jean Sodium [Moles/Vol] 136 mmol/L Normal 136-145 [facility] Comment on above: Performed By: #### A NICHOL HSTROPN, LIPA, CMP #### [facility] [address] [place] [address] Dr. Vipul Jean Urea nitrogen [Mass/Vol] 16.0 mg/dL Normal 7.0-18.0 [facility] Comment on above: Performed By: #### A NICHOL, HSTROPN, LIPA, CMP #### [facility] [address] [place] [address] Dr. Vipul Jean Urea nitrogen/Creatinine [Mass ratio] 14.8 mg/mg Normal [facility] Comment on above: Performed By: #### A NICHOL HSTROPN, LIPA, CMP #### [facility] [address] [place] [address] Dr. Vipul Jean TROPONIN, HIGH SENSITIVITYon 05-01-2022 HSTROP 21.4 pg/mL Normal 4.0-76.1 [facility] Comment on above: Result Comment: CUT- OFF POINTS HAVE BEEN ESTABLISHED BASED ON THE FOURTH UNIVERSAL DEFINITIONS OF MYOCARDIAL INFARCTION. THE UPPER REFERENCE LIMIT (URL) OF TROPONIN, DEFINED THE 99TH PERCENTILE OF cTnI DISTRIBUTION IN A REFERENCE POPULATION, HAS BEEN CONFIRMED THE DECISION THRESHOLD FOR ID DIAGNOSIS. Performed By: #### A NICHOL, HSTROPN, LIPA, CMP #### [facility] [address] [place] [address] Dr. Vipul Jean CBC AUTO DIFFon 02-14-2022 BASO # 0.1 103/ul Normal 0.0-0.1 [facility] Comment on above: Performed By: #### C BC #### [facility] [address] [place] [address] Dr. Vipul Jean Basophils/100 WBC (Bld) 0.6 % Normal 0.2-2.0 [facility] Comment on above: Performed By: #### C BC #### [facility] [address] [place] [address] Dr. Vipul Jean EO # 0.1 103/ul Normal 0.0-0.7 [facility] Comment on above: Performed By: #### C BC #### [facility] [address] [place] [address] Dr. Vipul Jean Eosinophils/100 WBC (Bld) 1.6 % Normal 0.9-7.0 [facility] Comment on above: Performed By: #### C BC #### [facility] [address] [place] [address] Dr. Vipul Jean Erythrocyte distribution width (RBC) [Ratio] 12.1 % Normal 11.0-15.0 [facility] Comment on above: Performed By: #### C BC #### [facility] [address] [place] [address] Dr. Vipul Jean Hematocrit (Bld) [Volume fraction] 47.9 % Normal 42.0-54.0 [facility] Comment on above: Performed By: #### C BC #### [facility] [address] [place] [address] Dr. Vipul Jean Hemoglobin (Bld) [Mass/Vol] 17.1 g/dL Normal 14.0-18.0 [facility] Comment on above: Performed By: #### C BC #### [facility] [address] [place] [address] Dr. Vipul Jean IG # 0.03 10e3/ul Normal 0.00-0.03 [facility] Comment on above: Performed By: #### C BC #### [facility] [address] [place] [address] Dr. Vipul Jean IG % 0.4 % Normal 0.0-0.5 [facility] Comment on above: Performed By: #### C BC #### [facility] [address] [place] [address] Dr. Vipul Jean LYMPH # 1.8 103/ul Normal 1.2-3.8 [facility] Comment on above: Performed By: #### C BC #### [facility] [address] [place] [address] Dr. Vipul Jean Lymphocytes/100 WBC (Bld) 22.4 % Normal 20.5-60.0 [facility] Comment on above: Performed By: #### C BC #### [facility] [address] [place] [address] Dr. Vipul Jean MANUAL DIFF REQ NO Normal [facility] Comment on above: Performed By: #### C BC #### [facility] [address] [place] [address] Dr. Vipul Jean MCH (RBC) [Entitic mass] 33.0 pg Normal 25.9-34.0 [facility] Comment on above: Performed By: #### C BC #### [facility] [address] [place] [address] Dr. Vipul Jean MCHC (RBC) [Mass/Vol] 35.7 g/dL Critically high 29.9-35.2 [facility] Comment on above: Performed By: #### C BC #### [facility] [address] [place] [address] Dr. Vipul Jean MCV (RBC) [Entitic vol] 92.5 fL Normal 80.0-94.0 [facility] Comment on above: Performed By: #### C BC #### [facility] [address] [place] [address] Dr. Vipul Jean MONO # 0.6 103/ul Normal 0.3-0.8 [facility] Comment on above: Performed By: #### C BC #### [facility] [address] [place] [address] Dr. Vipul Jean Monocytes/100 WBC (Bld) 7.0 % Normal 1.7-12.0 [facility] Comment on above: Performed By: #### C BC #### [facility] [address] [place] [address] Dr. Vipul Jean NEUT # 5.5 103/ul Normal 1.4-6.5 [facility] Comment on above: Performed By: #### C BC #### [facility] [address] [place] [address] Dr. Vipul Jean Neutrophils/100 WBC (Bld) 68.0 % Normal 43.0-75.0 [facility] Comment on above: Performed By: #### C BC #### [facility] [address] [address] [address] Vipul Jean Platelet mean volume (Bld) [Entitic vol] 11.0 fL Normal 9.5-13.5 [facility] Comment on above: Performed By: #### C BC #### [facility] [address] [place] [address] Dr. Vipul Jean PLT 101 103/ul Critically low 150-450 [facility] Comment on above: Performed By: #### C BC #### [facility] [address] [address] [address] Vipul Jean RBC 5.18 106/ul Normal 4.70-6.10 [facility] Comment on above: Performed By: #### C BC #### [facility] [address] [place] [address] Dr. Vipul Jean WBC 8.1 103/ul Normal 4.0-11.0 [facility] Comment on above: Performed By: #### C BC #### [facility] [address] [place] [address] Dr. Vipul Jean CRPon 02-14-2022 CRP [Mass/Vol] mg/L Normal <=1.0 [facility] Comment on above: Performed By: #### C RP, URIC #### [facility] [address] [place] [address] Dr. Vipul Jean URIC ACID SERUMon 02-14-2022 Urate [Mass/Vol] 4.4 mg/dL Normal 3.5-7.2 [facility] Comment on above: Performed By: #### C RP, URIC #### [facility] [address] [place] [address] Dr. Vipul Jean XR ANKLE LT MIN [...] by: NORY ALICIA Date: 2022-02-14 15:05 Normal [facility] CNOVSPon 06-15-2017 CNOVSP Visit (SP) Office (HEMAC[facility]) Ko BARROS ([id number]) 1950 MDate Time Provider Department06/15/17 3:45 PM [...] kg (204 lb 9.6 oz) BMI 33.02 kg/w2Llmvxaw Appearance: alert and oriented, appearing in no [...] ABS GRAN CT + CBC (FOR REMOTE [facility] USE)2. S/P CABG x 5 - ICD9: V45.81, ICD10: Z95.1See above3. Undescended left testicle - ICD9: 752.51, ICD10: Q53.10See EDITH Ruizeferring Provider: AUDREY OSHEA [[id number]]Allergies As of Date: 06/15/2017(No Known Allergies)Date Reviewed: 06/15/2017Reviewed by: Liliane Molina - Fully AssessedReason for Visit: low platelets [Other] Cmt: new patient consultationPrimary Visit Diagnosis:Thrombocytopeni a (HCC) [D69.6] Other Visit Diagnoses: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 left testicle [Q53.10]Order(s):ABS GRAN CT + CBC (FOR REMOTE [facility] USE) [SQRAGCBC] Order #: [id number] FUTUREFollow-up and Disposition History RecordedPrescriptions as of [...] by CAREY TREVIÑO MD on 06/15/17 [facility] PROGRESS HNO ID: [id number] thor: [place]: (none)Author Type: PhysicianType: Progress [...] kg (204 lb 9.6 oz) BMI 33.02 kg/s7Gtafdwm Appearance: alert and oriented, appearing in no [...] ABS GRAN CT + CBC (FOR REMOTE [facility] USE)2. S/P CABG x 5 - ICD9: V45.81, ICD10: Z95.1See above3. Undescended left testicle - ICD9: 752.51, ICD10: Q53.10See Cruz Treviño MD Normal [facility] Remote Abs Gran + CBC (for [facility] use only)on 06-15-2017 Absol Gran Count 5.25 k/uL Normal 1.45-7.50 [facility] Erythrocyte distribution width Auto Ratio (RBC) 12.4 % Normal 11.5-15.0 [facility] Erythrocytes (RBC) 4.87 10*6/uL [facility] 4[facility]20-6.00 [facility] Hematocrit (HCT) 45.5 % Normal 39.0-51.0 [facility] Hemoglobin mass conc (Bld) 15.7 g/dL Normal 13.0-17.0 [facility] MCH 32.2 pG Normal 26.0-34.0 [facility] MCHC mass conc (RBC) 34.5 g/dL Normal 30.5-36.0 [facility] MCV 93.4 fL Normal 80.0-100.0 [facility] Platelet mean volume (PMV) 10.8 fL Normal 9.0-12.7 [facility] Platelets 116 10*3/uL Low 150-400 [facility] WBC (Leukocytes) 7.93 10*3/uL Normal 3.70-11.00 [facility] Encounters Encounter Date Encounter Type Care Provider Facility Start: 04-24-2023 End: 04-24-2023 ambulatory TERRANCE HORTON Not Available Start: 03-02-2023 End: 03-02-2023 ambulatory KARINA PARKINSON Not Available Start: 01-23-2023 End: 01-23-2023 ambulatory SARBJIT OLIVERA [facility] Start: 08-15-2022 End: 08-15-2022 ambulatory KATHY PAZ [facility] Start: 07-27-2022 End: 07-28-[address] TERRANCE HORTON Facility:[facility] Start: 05-01-2022 End: 05-01-[address] TERRANCE HORTON Facility:[facility] Start: 02-14-2022 End: 02-14-[address] TERRANCE HORTON Facility:[facility] Start: 06-15-2017 End: 06-16-2017 Ambulatory CAREY TREVIÑO [facility] Payers Date Payer Category Payer Medicare [id number] 1950 Unknown [id number] [id number] [id number] 1950 Unknown [id number] 2.16.84 [id number] 1950 Unknown [id number] 2.16.84 [id number] 1950 Unknown [id number] 2.16.84 [id number] 1950 Unknown [id number] Progress note 01-23-2023 Note Date & Type [...] All other systems reviewed and are negative. [facility] Progress note 01-23-2023 Note Date & Type Note Facility 01-23-2023 Note [facility]iology [facility] No te Subjective James Barros is a 72 y.o. year old male patient with HTN, HLD, COPD, and CAD s/p CABG in 2010 seen in follow-up. 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 Update: 08/15/2022 Patient adamantly [...] for this visit: Coronary artery disease involving [place] coronary artery of [place] heart with angina pectoris ([facility]) Essential hypertension Mixed hyperlipidemia Hx of CABG Chronic obstructive pulmonary disease, unspecified COPD type ([facility]) Tobacco dependence Intermittent claudication ([facility]) Plan 1. Coronary artery disease -Multivessel [...] of twice daily. (more content not included)... [facility] Progress note 08-15-2022 Note Date & Type Note Facility 08-15-2022 Note Cardiology Clinic No te Chief Complaint: establish care HPI: James Barros is a 72 y.o. male with a past medical history including HTN, HLD, COPD, and CAD s/p CABG in 2010. 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 Patient adamantly denies any [...] Kathy Paz MD Interventional Cardiology [facility] [facility] [place] Summary Purpose Family History No Family History [...] section and content) DATE CREATED AUTHOR 10/06/2017 [facility] DATE CREATED AUTHOR AUTHOR'S ORGANIZ ATION 08/01/2022 [facility] DATE CREATED AUTHOR AUTHOR'S ORGANIZ ATION 01/25/2023 [facility] DATE CREATED AUTHOR AUTHOR'S ORGANIZ ATION 04/25/2023 [facility] EPIC FOR RECORDS PERTAINING TO [...] BE BASED ON THE PRIMARY CLINICAL RECORDS. [employer] provides no warranty or guarantee of the accuracy or completeness of information in this document.
--- NOTE | 2023-05-23 06:56 | CA_ITS ---
Patient Name: JAMES POPE MR#: [id number] : 1950 Exam Date: 05/23/2023 Ordering Doctor: DR SHINE ELLISON . ECHOCARDIOGRAM REPORT PROCEDURE: CA ECHO DOPPLER COMPLETE INDICATIONS: Dyspnea COMPARISON: None. DESCRIPTION: COMPLETE ECHOCARDIOGRAM Real-time transthoracic echocardiography with 2D, M-mode, spectral and color flow Doppler performed. QUALITY: Technical quality was adequate. LEFT VENTRICLE: Normal chamber size. Thickened septal wall. Mild to moderate concentric hypertrophy. Global left ventricular systolic function is normal. LV EF: Visual estimation of left ventricular ejection fraction is 65-70% DIASTOLIC: Diastolic function is indeterminate. ATRIAL SEPTUM: LEFT ATRIUM: Normal chamber size. RIGHT ATRIUM: Mild dilatation. RIGHT VENTRICLE: Normal chamber size. Normal right ventricular systolic function. TRICUSPID VALVE: Normal mobility and thickness. No stenosis with trivial regurgitation. Unable to assess right sided pressures due to lack of measurable tricuspid regurgitation. MITRAL VALVE: Normal mobility and thickness. No evidence of mitral valve stenosis. AORTIC VALVE: The aortic valve is bicuspid, Max type 0, with fusion of the left and non-coronary cusps. No visible sclerosis. The leaflets open well. No evidence of aortic valve stenosis. Mild to moderate aortic regurgitation. AORTIC ROOT: Moderately dilated, measuring 4.4 cm. Mild dilatation of the ascending aorta measuring 3.8 cm. PULMONIC VALVE: Normal thickness and mobility. No stenosis. No regurgitation. PERICARDIUM: No evidence of pericardial effusion. IVC: Not well visualized. PLEURA: CONCLUSION: 1. Mild to moderate concentric left ventricular hypertrophy with normal systolic function. LVEF is 65-70%. 2. Normal right ventricular size and systolic function. 3. Bicuspid aortic valve with no stenosis and mild to moderate regurgitation. 4. Moderately dilated aortic root, measuring 4.4 cm and mildly dilated ascending aorta, measuring 3.8 cm. Adult Echocardiography Procedure Report Left Ventricle LVEDD (3.7 - 5.6 cm): 4.12 cm LVESD (2.2 - 4.0 cm): 2.94 cm LVIVS thickness (0.6 - 1.2 cm): 1.73 cm LVPW thickness (0.5 - 1.0 cm): 1.32 cm e': 0.14 m/s E - e': 3.53 LVOT Max Gradient: 4.47 mm[Hg] LVOT Area (cm2): 1.06 m/s Peak Velocity (LVOT): 1.06 m/s Mean Velocity (LVOT): 0.67 m/s LVOT Diameter 2.42 cm Left Ventricular Ejection Fraction: 75.35 % Left Atrium LA Volume Index (2D A2C): 36.41 ml/m2 Left Atrium Systolic Dimension: 4.28 cm Mitral Valve MV E to A Ratio: 0.49 Mitral Valve A-Wave Peak Velocity: 0.98 m/s Mitral Valve E-Wave Peak Velocity: 0.48 m/s Right Ventricle RV Internal Diastolic Dimension: 3.77 cm Aorta AO Root Diam: 4.38 cm Ascending Ao Diam: 3.85 cm Aortic Valve AoV Area (Peak Samir): 3.58 cm2, 3.58 cm2 AoV Area (VTI): 4.07 cm2, 4.07 cm2 Deceleration Craig: 0.82 m/s2 Pressure Half-Time: 1.33 s Peak Velocity(Antegrade Flow): 1.35 m/s Peak Gradient(Antegrade Flow): 7.33 mm[Hg] Mean Velocity(Antegrade Flow): 0.80 m/s Mean Gradient(Antegrade Flow): 3.12 mm[Hg] Velocity Time Integral: 20.56 cm Tricuspid Valve Peak Velocity (Regurgitant Flow): 1.50 m/s, 1.35 m/s, 1.49 m/s Pulmonic Valve Mean Gradient: 3.37 mm[Hg], 2.96 mm[Hg] Mean Velocity: 0.85 m/s, 0.78 m/s Peak Velocity: 1.31 m/s Peak Gradient: 7.49 mm[Hg], 6.22 mm[Hg] Right Atrium Right Atrium Systolic Pressure: 75.77 ml, 75.77 ml Dictated by: Suman Phillips M.D. on 05/23/2023 at 15:55 Approved by: Suman Phillips M.D. on 05/23/2023 at 16:05
[2023-05-23 07:50] LABS: Ammonia 40 umol/L (11-32)
--- NOTE | 2023-05-23 08:29 | P.PN_ITS ---
Progress Note: Subjective Subjective Interval history: Presents for the chest pain. He is oriented least knowing that he is in the hospital although he thought he was in [place] Exam Constitutional Vital Signs, click to edit/add: Last Vital Signs Temp 98 F 05/23/23 03:31 Pulse 67 05/23/23 06:14 Resp 16 05/23/23 04:17 BP 150/65 H 05/23/23 03:31 Pulse Ox 100 05/23/23 03:31 O2 Del Method Room Air 05/23/23 03:31 Documenting provider has reviewed patient's vital signs: yes Common normals: no apparent distress Respiratory Common normals: normal respiratory effort Cardio Common normals: regular rate and regular rhythm GI Common normals: Normal to inspection, nondistended, normoactive bowel sounds present Neuro Common normals: CN's II-XII intact bilaterally and moves all extremities; not oriented x3 Progress Note: Objective Labs Labs: Short CBC 05/22/23 05/23/23 Range/Units 12:50 04:10 WBC 7.5 9.2 (4.0-11.0) 10^3/uL Hgb 17.4 16.0 (14.0-18.0) g/dL Hct 48.2 45.9 (42.0-54.0) % Plt Count 123 L 115 L (150-450) 10^3/uL BMP 05/22/23 05/23/23 12:50 04:10 Sodium 130 L 132 L Potassium 3.7 4.1 Chloride 93 L 99 Carbon Dioxide 28.9 27.5 BUN 19.0 H 16.0 Creatinine 1.18 1.11 Glucose 285 H 156 H Calcium 10.9 H 10.7 H Liver Function 05/23/23 Range/Units 04:10 Total Bilirubin 1.2 H (0.2-1.0) mg/dL AST 22 (15-37) U/L ALT 27 (16-63) U/L Alkaline Phosphatase 93 (46-116) U/L Albumin 3.6 (3.4-5.0) g/dL Urine 05/22/23 Range/Units 14:54 Urine Color Lt. yellow (YELLOW) Urine Clarity Clear (CLEAR) Urine pH 6.0 (5.0-9.0) Ur Specific [place] <=1.005 A (1.005-1.025) Urine Protein 30 A (NEG/TRACE) mg/dL Urine Glucose (UA) 500 A (NEGATIVE) mg/dL Progress Note: A&P Assessment and Plan (1) Chest pain: (2) Visual hallucinations: Plan Uncontrolled hypertension with chest pain, cardiology to see today, fairly recently had a moderately abnormal stress test. Check on echocardiogram Thrombocytopenia-monitor daily Hyponatremia-monitor daily Dementia-May need further adjustment medications, consult to teleneurology- pending NIDDM-insulin sliding scale With initial symptom being the chest pain. The altered mental status. Likely just a progression of his dementia consult to telemetry cardiology and teleneurology change patient to observation status currently. It is a possibility as can be a prolonged course to improve or resolve his altered mental status and visual hallucinations, possible change to inpatient status today Urinary Catheter Management Urinary Catheter Management Straight: Cath placed during this visit: no
[2023-05-23] MEDS: LISINOPRIL 10 MG TABLET PO (08:30)
[2023-05-23] MEDS: METFORMIN HCL 500 MG TABLET 1000 MG PO ×2 (08:31→17:35)
[2023-05-23] MEDS: HYDROCHLOROTHIAZIDE 25 MG TABLET 12.5 MG PO (08:31)
[2023-05-23] MEDS: ASPIRIN 81 MG TABLET.DR PO (08:31)
--- NOTE | 2023-05-23 09:09 | CM.NOTE ---
Rounds made with Dr. Carr. No plan for discharge today.
[2023-05-23 09:45] LABS: Thyroid Stimulating Hormone 1.539 uIU/mL (0.358-3.740)
[2023-05-23 09:46] LABS: Free T3 2.68 pg/mL (2.18-3.98)
[2023-05-23] MEDS: LACTULOSE 10 GM/15 ML (237ML) SOLUTION 30 GM PO ×2 (10:44→20:53)
[2023-05-23 11:37] LABS: Glucometer 202 mg/dL (74-106)
[2023-05-23] MEDS: INSULIN ASPART 300 UNIT/3 ML PEN SUBQ ×2 (12:35→20:59)
--- NOTE | 2023-05-23 13:47 | SWNOTE1 ---
SW waiting for to arrive to discuss dc plans. At this time pt is not oriented. Pt is sitting in chair and eating. SW called , home phone, no answer. LUPE left message.
--- NOTE | 2023-05-23 15:20 | SWNOTE1 ---
LUPE spoke with pt's in room. Just 2 weeks ago pt was getting around well at home, using a cane at times. Pt was getting to the bathroom himself, washing himself, etc. Pt's voiced he does not drive. 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 She stated he walks in the home and gets around fine. She voiced about 2 weeks ago he fell. She stated he told her that he did not hit his head, but feels that he did. She stated ever since then he has been acting diferent. voiced we checked for brain bleed, but no signs. SW spoke to the about pt going to rehab at nursing facility for rehab to get stronger. At this time pt's is refusing this and wants pt to come home. She stated she does not want him to get more confused. SW advised for pt's safety it is recommended he going to rehab for a short time. Again pt's feels at this time she will take him home and refused SNF. Pt's is open to Home Health. LUPE to bring back in HH list. SW did explain to the difference between HH and SNF. Pt's asked about therapy from [facility]. LUPE asked if she wanted pt to go to [facility]? She stated no someone from there therapy team. LUPE let her know that SW would have to use a [employer] company. She voiced understanding. LUPE to bring her in list from medicare[employer]gov.
--- NOTE | 2023-05-23 16:24 | SWNOTE1 ---
SW provided pt's with list from medicare[employer]gov to review for HH companies. SW reviewed IMM form with pt's , pt was switched to inpt status. Pt's voiced understanding, no questions. Pt's signed form, original given to , copy placed on chart.
--- OUTSIDE RECORDS SUMMARY | 2023-05-23 16:48 | XMS_ITS | CCD ---
Author Name Unknown Address [address] [facility] [address] [place] [id number] Organization [facility] Care Team Providers Care Helpdesk Manager Name Role Phone CAREY TREVIÑO Unavailable Unavailable [...] source) bee venom Drug allergy (disorder) [facility] Repository (1 source) Iodine (And Iodine Containting Drugs) Drug allergy (disorder) [facility] Problems Active Problems Problem Classification Problem Date Documented Da te Episodic/Chronic Chronic obstructive pulmonary disease and bronchiectasis (2 sources) Chronic obstructive pulmonary disease, unspecified; 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: [Chronic obstructive pulmonary disease, unspecified] Onset: 01-23-2023 Chronic Coagulation and hemorrhagic disorders (1 source) Thrombocytopenia, unspecified; 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: [Thrombocytopenia, unspecified] Onset: 06-15-2017 Chronic Coronary atherosclerosis and other heart disease (3 sources) Atherosclerotic heart disease of eek coronary artery without angina pectoris; 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: [Atherosclerotic heart disease of eek coronary artery with unspecified angina pectoris] Onset: [...] Onset: 05-03-2022 Chronic 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; 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: [[facility] CURRENT USE OF ASPIRIN] Onset: 05-03-2022 Episodic Other aftercare (1 source) [facility] [place] (current[facility] drug therapy; 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: [[facility] CURRENT DRUG THERAPY] Onset: 05-03-2022 Episodic Other aftercare (1 source) [facility] (current) use of oral hypoglycemic drugs; 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: [[facility] USE ORAL HYPOGLYCEMIC DX] Onset: 05-03-2022 Episodic [...] Range Facility Office Visiton 01-23-2023 Follow-up visit [id number] James Barros 1950 M Date Provider Department Center 01/23/2023 [id number] OLIVERA DIANA [facility] Family History Problem Relation Age of Onset Heart attack Maternal Grandfather Family Status - Relation Status Age at Maternal Grandfather Level of Service:07268 CT OFFICE/OUTPATIENT ESTABLISHED MOD MDM 30-39 MIN Normal [facility] Office Visiton 08-15-2022 Follow-up visit [id number] James Barros 1950 M Date Provider Department Center 08/15/2022 [id number] PAZ DIANA [facility] No family history on file Level of Service:29504 CT OFFICE/OUTPATIENT ESTABLISHED MOD MDM 30-39 MIN Reason for Visit and Comments: New Patient [632] Normal [facility] GLYCOHEMOGLOBIN A1Con 2022 ADA RECOMMENDATION SEE BELOW Normal [facility] Comment on above: Result Comment: ADA RECOMMENDED LIMIT 4.0 - 6.0 ADA THERAPEUTIC TARGET < 7.0 ACTION SUGGESTED > 7.0 Performed By: #### A 1C ####[facility] [address] [address]Dr. Vipul Jean Glucose [Mass/Vol] 197 mg/dL Normal [facility] Comment on above: Performed By: #### A 1C ####[facility] [address] [place], [place] [address]WpNoelle Jean HbA1c (Bld) [Mass fraction] 8.5 % Critically high 4.5-6.2 [facility] Comment on above: Performed By: #### A 1C ####[facility] [address] [id number]. Vipul Jean AMYLASEon 05-01-2022 Amylase [Catalytic activity/Vol] 33 U/L Normal 25-115 [facility] Comment on above: Performed By: #### A MY, HSTROPN, LIPA, CMP #### [facility] [address] [place] [address] Dr. Vipul Jean CBC AUTO DIFFon 05-01-2022 BASO # 0.1 103/ul Normal 0.0-0.1 [facility] Comment on above: Performed By: #### C BC #### [facility] [address] [place] [address] Dr. Vipul Jean Basophils/100 WBC (Bld) 0.6 % Normal 0.2-2.0 [facility] Comment on above: Performed By: #### C BC #### [facility] [address] [place] [address] Dr. Vipul Jean EO # 0.1 103/ul Normal 0.0-0.7 [facility] Comment on above: Performed By: #### C BC #### [facility] [address] [place] [address] Dr. Vipul Jean Eosinophils/100 WBC (Bld) 1.4 % Normal 0.9-7.0 [facility] Comment on above: Performed By: #### C BC #### [facility] [address] [place] [address] Dr. Vipul Jean Erythrocyte distribution width (RBC) [Ratio] 12.2 % Normal 11.0-15.0 [facility] Comment on above: Performed By: #### C BC #### [facility] [address] [place] [address] Dr. Vipul Jean Hematocrit (Bld) [Volume fraction] 46.0 % Normal 42.0-54.0 [facility] Comment on above: Performed By: #### C BC #### [facility] [address] [place] [address] Dr. Vipul Jean Hemoglobin (Bld) [Mass/Vol] 16.7 g/dL Normal 14.0-18.0 [facility] Comment on above: Performed By: #### C BC #### [facility] [address] [place] [address] Dr. Vipul Jean IG # 0.04 10e3/ul Critically high 0.00-0.03 [facility] Comment on above: Performed By: #### C BC #### [facility] [address] [place] [address] Dr. Vipul Jean IG % 0.4 % Normal 0.0-0.5 [facility] Comment on above: Performed By: #### C BC #### [facility] [address] [place] [address] Dr. Vipul Jean LYMPH # 1.7 103/ul Normal 1.2-3.8 [facility] Comment on above: Performed By: #### C BC #### [facility] [address] [place] [address] Dr. Vipul Jean Lymphocytes/100 WBC (Bld) 18.7 % Critically low 20.5-60.0 [facility] Comment on above: Performed By: #### C BC #### [facility] [address] [place] [address] Dr. Vipul Jean MANUAL DIFF REQ NO Normal [facility] Comment on above: Performed By: #### C BC #### [facility] [address] [place] [address] Dr. Vipul Jean MCH (RBC) [Entitic mass] 33.3 pg Normal 25.9-34.0 [facility] Comment on above: Performed By: #### C BC #### [facility] [address] [place] [address] Dr. Vipul Jean MCHC (RBC) [Mass/Vol] 36.3 g/dL Critically high 29.9-35.2 [facility] Comment on above: Performed By: #### C BC #### [facility] [address] [place] [address] Dr. Vipul Jean MCV (RBC) [Entitic vol] 91.6 fL Normal 80.0-94.0 [facility] Comment on above: Performed By: #### C BC #### [facility] [address] [place] [address] Dr. Vipul Jean MONO # 0.6 103/ul Normal 0.3-0.8 [facility] Comment on above: Performed By: #### C BC #### [facility] [address] [address] [address] Vipul Jean Monocytes/100 WBC (Bld) 6.9 % Normal 1.7-12.0 [facility] Comment on above: Performed By: #### C BC #### [facility] [address] [address] [address] Vipul Jean NEUT # 6.5 103/ul Normal 1.4-6.[address] [facility] Comment on above: Performed By: #### C BC #### [facility] [address] [address] [address] Vipul Jean Neutrophils/100 WBC (Bld) 72.0 % Normal 43.0-75.0 [facility] Comment on above: Performed By: #### C BC #### [facility] [address] [place] [address] Dr. Vipul Jean Platelet mean volume (Bld) [Entitic vol] 10.5 fL Normal 9.5-13.5 [facility] Comment on above: Performed By: #### C BC #### [facility] [address] [address] [address] Vipul Jean PLT 125 103/ul Critically low 150-450 [facility] Comment on above: Performed By: #### C BC #### [facility] [address] [place] [address] Dr. Vipul Jean RBC 5.02 106/ul Normal 4.70-6.[address] [facility] Comment on above: Performed By: #### C BC #### [facility] [address] [place] [address] Dr. Vipul Jean WBC 9.0 103/ul Normal 4.0-11.[address] [facility] Comment on above: Performed By: #### C BC #### [facility] [address] [place] [address] ABD/PELVIS WO CONon [...] by: HOME MARX Date: 2022-05-01 15:31 Normal [facility] LIPASEon 05-01-2022 Lipase [Catalytic activity/Vol] 62.0 U/L Critically low 73.0-393.0 [facility] Comment on above: Performed By: #### A NICHOL HSTROPN, LIPA, CMP #### [facility] [address] [address] [address] Vipul Jean PROF 14(COMP METB)on 023 Albumin [Mass/Vol] 3.4 g/dL Normal 3.4-5.0 [facility] Comment on above: Performed By: #### A NICHOL HSTROPN, LIPA, CMP #### [facility] [address] [address] [address] Vipul Jean Albumin/Globulin [Mass ratio] 1.1 {ratio} Normal [facility] Comment on above: Performed By: #### A NICHOL HSTROPN, LIPA, CMP #### [facility] [address] [address] [address] Vipul Jean ALP [Catalytic activity/Vol] 93 U/L Normal 46-[address] [facility] Comment on above: Performed By: #### A NICHOL HSTROPN, LIPA, CMP #### [facility] [address] [address] [address] Vipul Jean ALT [Catalytic activity/Vol] 38 U/L Normal 16-[address] [facility] Comment on above: Performed By: #### A MY, HSTROPN, LIPA, CMP #### [facility] [address] [place] [address] Dr. Vipul Jean Anion gap [Moles/Vol] 10.6 mmol/L Normal [facility] Comment on above: Performed By: #### A MY, HSTROPN, LIPA, CMP #### [facility] [address] [place] [address] Dr. Vipul Jean AST [Catalytic activity/Vol] 29 U/L Normal 15-37 [facility] Comment on above: Performed By: #### A MY, HSTROPN, LIPA, CMP #### [facility] [address] [place] [address] Dr. Vipul Jean Bilirubin [Mass/Vol] 0.6 mg/dL Normal 0.2-1.0 [facility] Comment on above: Performed By: #### A MY, HSTROPN, LIPA, CMP #### [facility] [address] [place] [address] Dr. Vipul Jean Calcium [Mass/Vol] 10.0 mg/dL Normal 8.5-10.1 [facility] Comment on above: Performed By: #### A MY, HSTROPN, LIPA, CMP #### [facility] [address] [place] [address] Dr. Vipul Jean Chloride [Moles/Vol] 105 mmol/L Normal 98-[address] [facility] Comment on above: Performed By: #### A MY, HSTROPN, LIPA, CMP #### [facility] [address] [place] [address] Dr. Vipul Jean CO2 [Moles/Vol] 24.6 mmol/L Normal 21.0-32.0 [facility] Comment on above: Performed By: #### A MY, HSTROPN, LIPA, CMP #### [facility] [address] [address] [address] Vipul Jean Creatinine [Mass/Vol] 1.08 mg/dL Normal 0.70-1.30 [facility] Comment on above: Performed By: #### A MY, HSTROPN, LIPA, CMP #### [facility] [address] [address] [address] Vipul Jean EGFR-AF ROMANIAN >60 Normal >=60 [facility] Comment on above: Performed By: #### A MY, HSTROPN, LIPA, CMP #### [facility] [address] [place] [address] Dr. Vipul Jean EGFR-NON AF ROMANIAN >60 Normal >=60 [facility] Comment on above: Performed By: #### A MY, HSTROPN, LIPA, CMP #### [facility] [address] [place] [address] Dr. Vipul Jean Globulin (S) [Mass/Vol] 3.2 g/dL Normal [facility] Comment on above: Performed By: #### A MY, HSTROPN, LIPA, CMP #### [facility] [address] [place] [address] Dr. Vipul Jean Glucose [Mass/Vol] 215 mg/dL Critically high 74-106 [facility] Comment on above: Performed By: #### A MY, HSTROPN, LIPA, CMP #### [facility] [address] [place] [address] Dr. Vipul Jean Potassium [Moles/Vol] 4.2 mmol/L Normal 3.5-5.1 [facility] Comment on above: Performed By: #### A MY, HSTROPN, LIPA, CMP #### [facility] [address] [place] [address] Dr. Vipul Jean Protein [Mass/Vol] 6.6 g/dL Normal 6.4-8.2 [facility] Comment on above: Performed By: #### A MY, HSTROPN, LIPA, CMP #### [facility] [address] [place] [address] Dr. Vipul Jean Sodium [Moles/Vol] 136 mmol/L Normal 136-145 [facility] Comment on above: Performed By: #### A NICHOL HSTROPN, LIPA, CMP #### [facility] [address] [place] [address] Dr. Vipul Jean Urea nitrogen [Mass/Vol] 16.0 mg/dL Normal 7.0-18.0 [facility] Comment on above: Performed By: #### A NICHOL, HSTROPN, LIPA, CMP #### [facility] [address] [place] [address] Dr. Vipul Jean Urea nitrogen/Creatinine [Mass ratio] 14.8 mg/mg Normal [facility] Comment on above: Performed By: #### A NICHOL HSTROPN, LIPA, CMP #### [facility] [address] [place] [address] Dr. Vipul Jean TROPONIN, HIGH SENSITIVITYon 05-01-2022 HSTROP 21.4 pg/mL Normal 4.0-76.1 [facility] Comment on above: Result Comment: CUT- OFF POINTS HAVE BEEN ESTABLISHED BASED ON THE FOURTH UNIVERSAL DEFINITIONS OF MYOCARDIAL INFARCTION. THE UPPER REFERENCE LIMIT (URL) OF TROPONIN, DEFINED THE 99TH PERCENTILE OF cTnI DISTRIBUTION IN A REFERENCE POPULATION, HAS BEEN CONFIRMED THE DECISION THRESHOLD FOR CA DIAGNOSIS. Performed By: #### A NICHOL, HSTROPN, LIPA, CMP #### [facility] [address] [place] [address] Dr. Vipul Jean CBC AUTO DIFFon 02-14-2022 BASO # 0.1 103/ul Normal 0.0-0.1 [facility] Comment on above: Performed By: #### C BC #### [facility] [address] [place] [address] Dr. Vipul Jean Basophils/100 WBC (Bld) 0.6 % Normal 0.2-2.0 [facility] Comment on above: Performed By: #### C BC #### [facility] [address] [place] [address] Dr. Vipul Jean EO # 0.1 103/ul Normal 0.0-0.7 [facility] Comment on above: Performed By: #### C BC #### [facility] [address] [place] [address] Dr. Vipul Jean Eosinophils/100 WBC (Bld) 1.6 % Normal 0.9-7.0 [facility] Comment on above: Performed By: #### C BC #### [facility] [address] [place] [address] Dr. Vipul Jean Erythrocyte distribution width (RBC) [Ratio] 12.1 % Normal 11.0-15.0 [facility] Comment on above: Performed By: #### C BC #### [facility] [address] [place] [address] Dr. Vipul Jean Hematocrit (Bld) [Volume fraction] 47.9 % Normal 42.0-54.0 [facility] Comment on above: Performed By: #### C BC #### [facility] [address] [place] [address] Dr. Vipul Jean Hemoglobin (Bld) [Mass/Vol] 17.1 g/dL Normal 14.0-18.0 [facility] Comment on above: Performed By: #### C BC #### [facility] [address] [place] [address] Dr. Vipul Jean IG # 0.03 10e3/ul Normal 0.00-0.03 [facility] Comment on above: Performed By: #### C BC #### [facility] [address] [place] [address] Dr. Vipul Jean IG % 0.4 % Normal 0.0-0.5 [facility] Comment on above: Performed By: #### C BC #### [facility] [address] [place] [address] Dr. Vipul Jean LYMPH # 1.8 103/ul Normal 1.2-3.[address] [facility] Comment on above: Performed By: #### C BC #### [facility] [address] [place] [address] Dr. Vipul Jean Lymphocytes/100 WBC (Bld) 22.4 % Normal 20.5-60.[address] [facility] Comment on above: Performed By: #### C BC #### [facility] [address] [place] [address] Dr. Vipul Jean MANUAL DIFF REQ NO Normal [facility] Comment on above: Performed By: #### C BC #### [facility] [address] [place] [address] Dr. Vipul Jean MCH (RBC) [Entitic mass] 33.0 pg Normal 25.9-34.0 [facility] Comment on above: Performed By: #### C BC #### [facility] [address] [place] [address] Dr. Vipul Jean MCHC (RBC) [Mass/Vol] 35.7 g/dL Critically high 29.9-35.2 [facility] Comment on above: Performed By: #### C BC #### [facility] [address] [place] [address] Dr. Vipul Jean MCV (RBC) [Entitic vol] 92.5 fL Normal 80.0-94.0 [facility] Comment on above: Performed By: #### C BC #### [facility] [address] [place] [address] Dr. Vipul Jean MONO # 0.6 103/ul Normal 0.3-0.8 [facility] Comment on above: Performed By: #### C BC #### [facility] [address] [place] [address] Dr. Vipul Jean Monocytes/100 WBC (Bld) 7.0 % Normal 1.7-12.0 [facility] Comment on above: Performed By: #### C BC #### [facility] [address] [place] [address] Dr. Vipul Jean NEUT # 5.5 103/ul Normal 1.4-6.[address] [facility] Comment on above: Performed By: #### C BC #### [facility] [address] [place] [address] Dr. Vipul Jean Neutrophils/100 WBC (Bld) 68.0 % Normal 43.0-75.0 [facility] Comment on above: Performed By: #### C BC #### [facility] [address] [address] [address] Vipul Jean Platelet mean volume (Bld) [Entitic vol] 11.0 fL Normal 9.5-13.5 [facility] Comment on above: Performed By: #### C BC #### [facility] [address] [place] [address] Dr. Vipul Jean PLT 101 103/ul Critically low 150-450 [facility] Comment on above: Performed By: #### C BC #### [facility] [address] [address] [address] Vipul Jean RBC 5.18 106/ul Normal 4.70-6.10 [facility] Comment on above: Performed By: #### C BC #### [facility] [address] [place] [address] Dr. Vipul Jean WBC 8.1 103/ul Normal 4.0-11.0 [facility] Comment on above: Performed By: #### C BC #### [facility] [address] [place] [address] Dr. Vipul Jean CRPon 02-14-2022 CRP [Mass/Vol] mg/L Normal <=1.0 [facility] Comment on above: Performed By: #### C RP, URIC #### [facility] [address] [place] [address] Dr. Vipul Jean URIC ACID SERUMon 02-14-2022 Urate [Mass/Vol] 4.4 mg/dL Normal 3.5-7.2 [facility] Comment on above: Performed By: #### C RP, URIC #### [facility] [address] [place] [address] Dr. Vipul Jean XR ANKLE LT MIN [...] by: NORY ALICIA Date: 2022-02-14 15:05 Normal [facility] CNOVSPon 06-15-2017 CNOVSP Visit (SP) Office ([facility]) Ko BARROS ([id number]) 1950 MDate Time Provider Department06/15/17 3:45 PM [...] kg (204 lb 9.6 oz) BMI 33.02 kg/m8Gpzdylb Appearance: alert and oriented, appearing in no [...] ABS GRAN CT + CBC (FOR REMOTE [facility] USE)2. S/P CABG x 5 - ICD9: V45.81, ICD10: Z95.1See above3. Undescended left testicle - ICD9: 752.51, ICD10: Q53.10See EDITH Ruizeferring Provider: AUDREY OSHEA [[id number]]Allergies As of Date: 06/15/2017(No Known Allergies)Date Reviewed: 06/15/2017Reviewed by: Liliane Molina - Fully AssessedReason for Visit: low platelets [Other] Cmt: new patient consultationPrimary Visit Diagnosis:Thrombocytopeni a (HCC) [D69.6] Other Visit Diagnoses: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 left testicle [Q53.10]Order(s):ABS GRAN CT + CBC (FOR REMOTE [facility] USE) [SQRAGCBC] Order #: [id number] FUTUREFollow-up and Disposition History RecordedPrescriptions as of [...] by CAREY TREVIÑO MD on 06/15/17 [facility] PROGRESS HNO ID: [id number] thor: [place]: (none)Author Type: PhysicianType: Progress [...] kg (204 lb 9.6 oz) BMI 33.02 kg/a3Nacbzru Appearance: alert and oriented, appearing in no [...] ABS GRAN CT + CBC (FOR REMOTE [facility] USE)2. S/P CABG x 5 - ICD9: V45.81, ICD10: Z95.1See above3. Undescended left testicle - ICD9: 752.51, ICD10: Q53.10See Cruz Treviño MD Normal [facility] Remote Abs Gran + CBC (for [facility] use only)on 06-15-2017 Absol Gran Count 5.25 k/uL Normal 1.45-7.50 [facility] Erythrocyte distribution width Auto Ratio (RBC) 12.4 % Normal 11.5-15.0 [facility] Erythrocytes (RBC) 4.87 10*6/uL Normal 4.20-6.00 [facility] Hematocrit (HCT) 45.5 % Normal 39.0-51.0 [facility] Hemoglobin mass conc (Bld) 15.7 g/dL Normal 13.0-17.0 [facility] MCH 32.2 pG Normal 26.0-34.0 [facility] MCHC mass conc (RBC) 34.5 g/dL Normal 30.5-36.0 [facility] MCV 93.4 fL Normal 80.0-100.0 [facility] Platelet mean volume (PMV) 10.8 fL Normal 9.0-12.7 [facility] Platelets 116 10*3/uL Low 150-400 [facility] WBC (Leukocytes) 7.93 10*3/uL Normal 3.70-11.00 [facility] Encounters Encounter Date Encounter Type Care Provider Facility Start: 04-24-2023 End: 04-24-2023 ambulatory TERRANCE HORTON Not Available Start: 03-02-2023 End: 03-02-2023 ambulatory KARINA PARKINSON Not Available Start: 01-23-2023 End: 01-23-2023 ambulatory SARBJIT OLIVERA [facility] Start: 08-15-2022 End: 08-15-2022 ambulatory KATHY PAZ [facility] Start: 07-27-2022 End: 07-28-[address] TERRANCE HORTON Facility:[facility] Start: 05-01-2022 End: 05-01-[address] TERRANCE HORTON Facility:[facility] Start: 02-14-2022 End: 02-14-[address] TERRANCE HORTON Facility:[facility] Start: 06-15-2017 End: 06-16-2017 Ambulatory CRAEY TREVIÑO [facility] Payers Date Payer Category Payer Medicare [id number] 1950 Unknown [id number] 1950 Unknown [id number] [id number] [id number] 1950 Unknown [id number] [id number] [id number] 1950 Unknown [id number] [id number] 1950 Unknown [id number] Progress note 01-23-2023 Note Date & Type [...] All other systems reviewed and are negative. [facility] Progress note 01-23-2023 Note Date & Type Note Facility 01-23-2023 Note Cardiology Clinic No te Subjective James Barros is a 72 y.o. year old male patient with HTN, HLD, COPD, and CAD s/p CABG in 2010 seen in follow-up. 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 Update: 08/15/2022 Patient adamantly [...] for this visit: Coronary artery disease involving eek coronary artery of eek heart with angina pectoris ([facility]) Essential hypertension Mixed hyperlipidemia Hx of CABG Chronic obstructive pulmonary disease, unspecified COPD type ([facility]) Tobacco dependence Intermittent claudication ([facility]) Plan 1. Coronary artery disease -Multivessel [...] of twice daily. (more content not included)... [facility] Progress note 08-15-2022 Note Date & Type Note Facility 08-15-2022 Note Cardiology Clinic No te Chief Complaint: establish care HPI: James Barros is a 72 y.o. male with a past medical history including HTN, HLD, COPD, and CAD s/p CABG in 2010. 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 Patient adamantly denies any [...] or concerns. Kathy Paz MD Interventional Cardiology [facility] Summary Purpose Family History No Family History [...] section and content) DATE CREATED AUTHOR 10/06/2017 [facility] DATE CREATED AUTHOR AUTHOR'S ORGANIZ ATION 08/01/2022 [facility] DATE CREATED AUTHOR AUTHOR'S ORGANIZ ATION 01/25/2023 [facility] DATE CREATED AUTHOR AUTHOR'S ORGANIZ ATION 04/25/2023 [facility] EPIC FOR RECORDS PERTAINING TO [...] BE BASED ON THE PRIMARY CLINICAL RECORDS. [employer] provides no warranty or guarantee of the accuracy or completeness of information in this document.
[2023-05-23 17:42] LABS: Glucometer 187 mg/dL (74-106)
--- NOTE | 2023-05-23 18:17 | P.CACN_ITS ---
History of Present Illness History of Present Illness Consult date: 05/23/23 Requesting physician: Scotty Carr Consult reason: chest pain Chief complaint: CHEST PAIN, Visual Hallucinations Narrative: 72-year-old with PMH of HTN/ HLD/ COPD/ CAD s/p CABG was brought to emergency department for intermittent chest pain. As per records, he has been having that for a week and a half. The patient had a stress test here. recently that was ne gative for reversible defect but had evidence of fixed defect suggestive of scar. He does not have chest pain now and is able to ambulate with no CP. EKG: SR with 1st degree EV block with Q waves in inferior and lateral leads. TWI in lateral leads which are noted in prior EKG but more pronounced now. Review of Systems ROS Narrative A ten point review of systems is negative except as noted above. Status of ROS 10 or more systems reviewed and unremark able except as noted in history and below [facility] Medical History (Updated 05/23/23 @ 18:25 by Olivier De La Fuente MD) Vision loss, bilateral ?H54.3 - Unqualified visual loss, both eyes (ICD-10) Surgical History (Updated 05/23/23 @ 15:16 by Tasneem Herrera RN) Hx of CABG ?Z95.1 - Presence of aortocoronary bypass graft (ICD-10) Social History Smoking status: Heavy tobacco smoker Highest level of school completed/degree received: Associate degree: occupational, technical, vocational program Meds Home Medications and Allergies Home Medications Medication Instructions Recorded Confirmed Type aspirin 81 mg tablet,delayed 81 mg PO DAILY 11/20/22 05/22/23 History release (Adult Aspirin Regimen) metformin 500 mg tablet 1,000 mg PO BIDWM 11/20/22 05/22/23 History rosuvastatin 20 mg tablet 20 mg PO DAILY 11/20/22 05/22/23 History aripiprazole 5 mg tablet 5 mg PO .qhs 05/22/23 05/22/23 History lisinopril 10 1 tab PO QDAY 05/22/23 05/22/23 History mg-hydrochlorothiazide 12.5 mg tablet meclizine 25 mg tablet 25 mg PO QID PRN dizziness 05/22/23 05/22/23 History Allergies Allergy/AdvReac Type Severity Reaction Status Date / Time No Known Drug Allergies Allergy Verified 11/20/22 10:09 Exam Narrative Exam Narrative: Nurses note and vital signs reviewed and patient is not hypoxic. General: The patient appears well and in no apparent distress. Patient is resting comfortably on cart. Skin: Warm, dry, no pallor noted. There is no rash noted. Head: Normocephalic, atraumatic Eye: Normal conjunctiva, no drainage Ears, Nose, Mouth, and Throat: oral mucosa is moist. Nares patent. Cardiovascular: Regular Rate and Rhythm Respiratory: Patient is in no distress, no accessory muscle use, lungs are clear to auscultation, no wheezing, rales or rhonchi Back: non-tender GI: Soft and nontender Musculoskeletal: The patient has no evidence of calf tenderness, no pitting edema, symmetrical pulses noted bilaterally Neurological: Awake and alert. He knows his name and that he is at [facility] but he does not know the year. He knows why he is here. Psychiatric: Cooperative Constitutional Vital Signs, click to edit/add: Last Vital Signs Temp 97.6 F 05/23/23 12:40 Pulse 71 05/23/23 17:50 Resp 19 05/23/23 17:50 BP 93/61 05/23/23 12:38 Pulse Ox 93 L 05/23/23 10:05 O2 Del Method Room Air 05/23/23 10:05 Documenting provider has reviewed patient's vital signs: yes Common normals: no apparent distress; negative for oriented x3 Respiratory Common normals: normal respiratory effort Cardio Common normals: regular rate and regular rhythm Rate: regular rate Rhythm: regular rhythm GI Common normals: Normal to inspection, nondistended, normoactive bowel sounds present Neuro Common normals: CN's II-XII intact bilaterally and moves all extremities; not oriented x3 Results Labs and Meds Lab results: Cardiac Enzymes 05/23/23 Range/Units 04:10 AST 22 (15-37) U/L Trops are reviewed and WNL CBC 05/23/23 Range/Units 04:10 WBC 9.2 (4.0-11.0) 10^3/uL RBC 4.89 (4.70-6.10) 10^6/uL Hgb 16.0 (14.0-18.0) g/dL Hct 45.9 (42.0-54.0) % Plt Count 115 L (150-450) 10^3/uL Neut # (Auto) 6.3 (1.4-6.5) 10^3/uL Lymph # (Auto) 1.9 (1.2-3.8) 10^3/uL [place] # (Auto) 0.8 (0.3-0.8) 10^3/uL Eos # (Auto) 0.1 (0.0-0.7) 10^3/uL Baso # (Auto) 0.1 (0.0-0.1) 10^3/uL Comprehensive Metabolic Panel 05/23/23 Range/Units 04:10 Sodium 132 L (136-145) mmol/L Potassium 4.1 (3.5-5.1) mmol/L Chloride 99 (98-107) mmol/L Carbon Dioxide 27.5 (21.0-32.0) mmol/L BUN 16.0 (7.0-18.0) mg/dL Creatinine 1.11 (0.70-1.30) mg/dL Glucose 156 H (74-106) mg/dL Calcium 10.7 H (8.5-10.1) mg/dL AST 22 (15-37) U/L ALT 27 (16-63) U/L Alkaline Phosphatase 93 (46-116) U/L Total Protein 7.0 (6.4-8.2) g/dL Albumin 3.6 (3.4-5.0) g/dL Intake and Output 05/23/23 05/23/23 05/23/23 07:59 15:59 23:59 Intake Total 360 / 360 Output Total 1974 Balance - 360 / 360 Intake: Oral 360 / 360 Output: Urine 275 / 1075 Other: # Unmeasured Voids 1 # Bowel Movements 1 Assessment and Plan Assessment and Plan (1) Chest pain: (2) Visual hallucinations: (3) CAD (coronary artery disease), [place] coronary artery: Plan Pt has history of CAD and is s/p CABG. Recent perfusion stress test did not show any reversible defects. If pt continues to have chest pain, will recommend outpt cardiac cath. His dementia is a concern and medication compliance is essential. Can consider adding Imdur 60mg QD and if no response, then Ranexa 500mg bid to regimen. If there is more episodes of active chest pain, then would recc transfer to [facility].
[2023-05-23] MEDS: NICOTINE 21 MG PATCH.TD24 TD (20:54)
[2023-05-23 21:02] LABS: Glucometer 170 mg/dL (74-106)
[2023-05-23] MEDS: ARIPIPRAZOLE 5 MG TABLET PO (21:02)
[2023-05-24] VITALS (49 sets, daily range): BP systolic 88–159; BP diastolic 54–82; PULSE 66–117; RESP 2–30; TEMP 36.9; O2SAT 97
[2023-05-24 04:17] LABS: Basophils Absolute Auto 0.1 10^3/uL (0.0-0.1); Basophils Percent Auto 0.8 % (0.2-2.0); Eosinophils Absolute Auto 0.2 10^3/uL (0.0-0.7); Eosinophils Percent Auto 1.8 % (0.9-7.0); Hematocrit 49.3 % (42.0-54.0); Hemoglobin 17.2 g/dL (14.0-18.0); Immature Granulocytes Abs Auto 0.05 10^3/uL (0.00-0.03); Immature Granulocytes Pct Auto 0.4 % (0.0-0.5); Lymphocytes Absolute Auto 3.1 10^3/uL (1.2-3.8); Lymphocytes Percent Auto 26.9 % (20.5-60.0); Mean Corpuscular HGB Conc 34.9 g/dL (29.9-35.2); Mean Corpuscular Volume 94.6 fL (80.0-94.0); Mean Platelet Volume 11.1 fL (9.5-13.5); Monocytes Percent Auto 8.7 % (1.7-12.0); Neutrophils Absolute Auto 7.2 10^3/uL (1.4-6.5); Neutrophils Percent Auto 61.4 % (43.0-75.0); Platelet Count 126 10^3/uL (150-450); Red Blood Count 5.21 10^6/uL (4.70-6.10); Red Cell Distribution Width 12.2 % (11.0-15.0); White Blood Count 11.7 10^3/uL (4.0-11.0)
[2023-05-24 04:36] LABS: Ammonia 15 umol/L (11-32)
[2023-05-24 04:45] LABS: Alanine Aminotransferase 42 U/L (16-63); Albumin Globulin Ratio 1.1; Albumin Level 3.8 g/dL (3.4-5.0); Alkaline Phosphatase 104 U/L (46-116); Anion Gap 15.7; Aspartate Amino Transferase 32 U/L (15-37); BUN Creatinine Ratio 20.3; Bilirubin Total 1.2 mg/dL (0.2-1.0); Calcium 10.8 mg/dL (8.5-10.1); Chloride 102 mmol/L (98-107); Estimated GFR (African America 54 (>=60); Estimated GFR (Non-African Ame 45 (>=60); Globulin 3.6 g/dL; Glucose 185 mg/dL (74-106); Potassium 3.7 mmol/L (3.5-5.1); Sodium 136 mmol/L (136-145); Total Protein 7.4 g/dL (6.4-8.2); Troponin I High Sensitivity 40.8 pg/mL (4.0-76.1)
[2023-05-24 07:39] LABS: Glucometer 206 mg/dL (74-106)
[2023-05-24] MEDS: LISINOPRIL 10 MG TABLET PO (08:04)
[2023-05-24] MEDS: INSULIN ASPART 300 UNIT/3 ML PEN SUBQ ×2 (08:04→11:52)
[2023-05-24] MEDS: ASPIRIN 81 MG TABLET.DR PO (08:04)
--- NOTE | 2023-05-24 09:07 | P.DS_ITS ---
DS: Providers Provider Date of admission: 05/22/23 16:09 Primary care physician: Kenny Gao MD Consults: 05/22/23 Consult to Dietitian Routine Reason For Exam: weight loss? Reason for consultation: diet 05/22/23 18:21 Consult to TeleNeurology Routine Reason for consultation: ams Has provider been notified: No 05/22/23 18:25 Consult to Cardiology Routine Reason for consultation: cp Has provider been notified: No Occupational Therapy Eval and Treat Routine Reason for consultation: Only if needed for Rehab Has provider been notified: No Physical Therapy Eval and Treat Routine Reason for consultation: Eval and Treat Has provider been notified: No DS: Diagnosis Discharge Diagnosis (1) Chest pain: (2) Visual hallucinations: (3) CAD (coronary artery disease), [place] coronary artery: DS: Summary Hospital Course Hospital Course: Patient presented to the emergency room with increasing chest pain. Dyspnea associated visit he also had altered mental status with hallucinations. Workup from teleneurology nothing significant was found but could not complete MRI scan. He did have elevated ammonia level treated for that and his symptoms are somewhat improved. He had no further chest pain. Workup for that was unremarkable. No further recommendations from cardiology, with no further chest pain over the last 24 hours will be discharged home in improving condition. Medications see list. Follow-up with cardiology and PCP within the next week. Also findings of thrombocytopenia that was improved today Hyponatremia that is improved today Acute kidney injury-somewhat worse today, to monitor that as an outpatient Elevated BNP, possibly related to fluids but is returned to normal today. Time Spent with Patient Time attestation: Total time spent providing and/or coordinating discharge services: Exam Constitutional Vital Signs, click to edit/add: Last Vital Signs Temp 98.4 F 05/24/23 00:07 Pulse 77 05/24/23 08:00 Resp 19 05/24/23 07:50 BP 123/67 05/24/23 07:45 Pulse Ox 97 05/24/23 03:56 O2 Del Method Room Air 05/24/23 03:56 Documenting provider has reviewed patient's vital signs: yes Common normals: no apparent distress Respiratory Common normals: normal respiratory effort Cardio Common normals: regular rate and regular rhythm GI Common normals: Normal to inspection, nondistended, normoactive bowel sounds present Neuro Common normals: CN's II-XII intact bilaterally and moves all extremities; not oriented x3 DS: Data Data Completed and Pending Labs on day of discharge: Labs from last 24 hours 05/24/23 05/24/23 05/23/23 07:37 04:08 20:58 WBC 11.7 H RBC 5.21 Hgb 17.2 Hct 49.3 MCV 94.6 H MCH 33.0 MCHC 34.9 RDW 12.2 Plt Count 126 L MPV 11.1 Neut % (Auto) 61.4 Lymph % (Auto) 26.9 [place] % (Auto) 8.7 Eos % (Auto) 1.8 Baso % (Auto) 0.8 Neut # (Auto) 7.2 H Lymph # (Auto) 3.1 [place] # (Auto) 1.0 H Eos # (Auto) 0.2 Baso # (Auto) 0.1 Abs Immat Gran (auto) 0.05 H Imm/Tot Granulo (auto) 0.4 Sodium 136 Potassium 3.7 Chloride 102 Carbon Dioxide 22.0 Anion Gap 15.7 BUN 31.0 H Creatinine 1.53 H Est GFR ( Amer) 54 L Est GFR (Non-Af Amer) 45 L BUN/Creatinine Ratio 20.3 Glucose 185 H Calcium 10.8 H Total Bilirubin 1.2 H AST 32 ALT 42 Alkaline Phosphatase 104 Ammonia 15 Troponin I High Sens 40.8 NT-Pro-B Natriuret Pep 678.0 Total Protein 7.4 Albumin 3.8 Globulin 3.6 Albumin/Globulin Ratio 1.1 TSH Thyroxine (T4) Free T3 POC Glucose 206 H 170 H 05/23/23 05/23/23 05/23/23 17:41 11:36 04:10 WBC RBC Hgb Hct MCV MCH MCHC RDW Plt Count MPV Neut % (Auto) Lymph % (Auto) [place] % (Auto) Eos % (Auto) Baso % (Auto) Neut # (Auto) Lymph # (Auto) [place] # (Auto) Eos # (Auto) Baso # (Auto) Abs Immat Gran (auto) Imm/Tot Granulo (auto) Sodium Potassium Chloride Carbon Dioxide Anion Gap BUN Creatinine Est GFR ( Amer) Est GFR (Non-Af Amer) BUN/Creatinine Ratio Glucose Calcium Total Bilirubin AST ALT Alkaline Phosphatase Ammonia Troponin I High Sens NT-Pro-B Natriuret Pep Total Protein Albumin Globulin Albumin/Globulin Ratio TSH 1.539 Thyroxine (T4) 8.80 Free T3 2.68 POC Glucose 187 H 202 H Discharge Plan Discharge Disposition: Home Health Service Condition: Good Discharge Medications: New isosorbide mononitrate 30 mg tablet extended release 24 hr 30 mg PO DAILY Qty: 30 11RF Continued metformin 500 mg tablet 1,000 mg PO BIDWM rosuvastatin 20 mg tablet 20 mg PO DAILY aspirin [Adult Aspirin Regimen] 81 mg tablet,delayed release (DR/EC) 81 mg PO DAILY lisinopril-hydrochlorothiazide 10-12.5 mg tablet 1 tab PO QDAY aripiprazole 5 mg tablet 5 mg PO .qhs meclizine 25 mg tablet 25 mg PO QID PRN (Reason: dizziness) Activity: increase activity as tolerated Diet: advance to your usual diet Patient Instructions: 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 Forms: Portal Instructions Follow Up Appointments: *Dr Aquino, [facility] cardiology, [place] Office MonJun 02, 2023 @ 9:20 AM [phone] *Dr Trinidad, [facility] in [place] (referral sent)- call for appt [phone] requested to make own appt with dr gao Discharge Date/Time: 05/24/23 14:20
[2023-05-24] MEDS: ISOSORBIDE MONONITRATE 30 MG TAB.ER.24H PO (09:49)
--- NOTE | 2023-05-24 09:58 | CM.NOTE ---
Rounds made with Dr. Carr. Potential discharge after Consults today.
--- NOTE | 2023-05-24 10:55 | SWNOTE1 ---
LUPE met with pt's to discuss dc needs. Pt did become very emotional and let SW know she would like to do outpt therapy. She does not want HH. She stated she doesn't want pt to feel overwhelmed she wants him to work at his own pace. She does not want HH and she does not want him to go to SNF. She would like him to go to [facility]. SW to find out fax number and call over to [facility]. LUPE let nursing know. Doctor signed order for outpt therapy.
--- NOTE | 2023-05-24 11:45 | REH.PTDLY ---
Physical Therapy Daily Note PT Daily Note/Assess Start: 05/24/23 11:40 Freq: Status: Active Protocol: Document 05/24/23 11:40 FLORAMYESHA (Rec: 05/24/23 11:45 [id number] Physical Therapy Daily Note/Assessment Time In 10:30 Time Out 10:40 Pain Level 0 Pain Level 0 Subjective Pt supine upon arrival, no complaints. in room, pt is making jokes. Therapeutic Exercise Minutes (minutes) 4 Therapeutic Exercise Units 0 Therapeutic Exercise Treatment Instructed in supine B LE exs 10x ea with AP, QS, SLR and heel slides for improved strength. Therapeutic Activity Minutes (minutes) 6 Therapeutic Activity Units 1 Therapeutic Activity Comments Supine to sit transfers Min A. Sit to stand transfer CGA. Gait training with RW 45 feet CGA with verbal cues for pt to push RW rather than pick it up and move it. Cues for directional changes as well with Min A to turn RW. Pt returns to bed as tech enters for EEG to be done. Min A with LEs to transfer from sit to supine. Total Therapy Minutes 10 Total Physical Therapy Units 1 Daily Note Summary Pt in good spirits today. Needs some assistance with transfers and gait for safety. Pt would benefit from SNF stay at [place] to improve these things as well as safety awareness.
[2023-05-24 11:50] LABS: Glucometer 227 mg/dL (74-106)
--- NOTE | 2023-05-24 12:50 | PC.NURSE ---
spoke with zully ace with neurology. she stated pt can be discharged from their standpoint with follow up with dr stanley in [place] (neuro will send referral) and out patient MRI. dr jennings notified.
--- NOTE | 2023-05-24 13:22 | PC.NURSE ---
dr jennings notified of pts bp 88/54 after receiving imdur. received order from dr jennings to hold imdur at home.
--- NOTE | 2023-05-24 14:26 | SWNOTE1 ---
Pt is going home and he will be doing outpt therapy. does not want HH or rehab. SW called over to [facility] outpt rehab and they provided fax number to send order. SW sent order and face sheet with insurance information. SW updated before she left and let her know they would be reaching out. SW let her know if anything changes SW will contact her.
[2023-05-25 18:08] LABS: Cortisol - AM 7.6 ug/dL (6.2-19.4)
--- NOTE | 2023-05-26 15:15 | CM.DCFOLLOWU ---
Person spoke with: Leydi patient's How are you feeling? He is in the restroom How is your pain? none Did you understand your discharge instructions? yes Do you have any questions about your discharge instructions? no Were you given any prescriptions at discharge? yes Were you able to get your prescriptions filled? yes Do you understand how to take your medications as ordered? yes and he held his BP pills this morning and I called the cardiology office to make them aware because his BP was low. Do you have any questions about your follow up appointment and do you plan to keep your follow up appointment? Plans on keeping the Cardiology follow up appt and I highly encouraged her to make the neurologist and PCP follow up appointment. seems reluctant to make this other appointments even after discussing the importance of follow up after hospitalization. states I hope I can get him to his cardiology appointment. He doesnt usually get up that early. Again, I stressed the importance of good follow up after a hospital discharge. Is there anything else that you would like to discuss? no Questions/Comments/Concerns/Other:
== END 2023-05-24 14:20 | disposition home or self-care (01) | DRG 303 ==
LOC: ER 15:54 → ICU 05-24 06:39
PROVIDERS: Admitting Provider Family Medicine; Emergency Provider Emergency Medicine; PCP Family Medicine; Visit Provider Family Medicine
DX: I25.10 Atherosclerotic heart disease of native coronary artery without angina pectoris (principal); E87.1 Hypo-osmolality and hyponatremia; N17.9 Acute kidney failure, unspecified; R07.9 Chest pain, unspecified; F17.210 Nicotine dependence, cigarettes, uncomplicated; I10 Essential (primary) hypertension; D69.6 Thrombocytopenia, unspecified; E11.9 Type 2 diabetes mellitus without complications; F03.90 Unspecified dementia, unspecified severity, without behavioral disturbance, psychotic disturbance, mood disturbance, and anxiety; R44.1 Visual hallucinations; Z79.82 Long term (current) use of aspirin; Z79.84 Long term (current) use of oral hypoglycemic drugs; Z79.899 Other long term (current) drug therapy; R06.00 Dyspnea, unspecified; R41.82 Altered mental status, unspecified; R79.89 Other specified abnormal findings of blood chemistry; I25.2 Old myocardial infarction; H54.7 Unspecified visual loss; Z91.81 History of falling; F41.8 Other specified anxiety disorders; F32.9 Major depressive disorder, single episode, unspecified; Z95.1 Presence of aortocoronary bypass graft; J44.9 Chronic obstructive pulmonary disease, unspecified
CPT/HCPCS: 36415; 70450; 71045; 80048; 80053; 81001; 82140; 82533; 82948; 83880; 84436; 84443; 84481; 84484; 85025; 86003; 93005; 93306; 94761; 95819; 96374; 97161; 97165; 97530; 99285; G0378; J1630; Q3014

== ENCOUNTER 2023-06-28 10:54 | Outpatient (OUT) | payer MEDICARE, SELFPAY ==
--- OUTSIDE RECORDS SUMMARY | 2023-06-28 11:00 | XMS_ITS | CCD ---
Author Name Unknown Address [address] [place] [address] Organization [facility] Care Team Providers Care Publishing Manager Name Role Phone CAREY TREVIÑO Unavailable [...] Consulting Unavailabl e ALICIA, NORY Consulting Unavailable NADERER, TERRANCE Attending Unavailable RUSKARINA BEGUM Attending Unavailable NADERER, TERRANCE Primary Care Unavailable MALFARRUKH TRINIDAD Consulting Unavailable INPATIENT, TELENEUROLOGY Consulting Unavail able SARBJIT OLIVERA Attending Unavailable ALGHOKATHY NIETO Attending Unavailable KATHY PAZ Attending Unavailable SHINE ELLISON Referring Unavailable NADERER, TERRANCE Primary Care Unavailable NADERER, TERRANCE Primary Care Unavailable SHINE ELLISON Referring Unavailable Allergies Allergy Classification Reported Allergen(s) Allergy Type Date of Onset Reaction(s) Facility (1 source) bee venom Drug allergy (disorder) [facility] Repository (1 source) Iodine (And Iodine Containting Drugs) Drug allergy (disorder) [facility] Repository Problems Active Problems Problem Classification Problem Date Documented Da te Episodic/Chronic Chronic obstructive pulmonary disease and bronchiectasis (2 sources) Chronic obstructive pulmonary disease, unspecified; 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: [Chronic obstructive pulmonary disease, unspecified] Onset: 01-23-2023 Chronic Coagulation and hemorrhagic disorders (1 source) Thrombocytopenia, unspecified; 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: [Thrombocytopenia, unspecified] Onset: 06-15-2017 Chronic Coronary atherosclerosis and other heart disease (3 sources) Atherosclerotic heart disease of [place] coronary artery without angina pectoris; 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: [Atherosclerotic heart disease of [place] coronary artery with unspecified angina pectoris] Onset: 05-03-2022 Chronic Diabetes mellitus with complications (4 sources) Type [...] Onset: 05-03-2022 Chronic Other aftercare (1 source) care home (current) use of aspirin; 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: [SKILLED NURSING CURRENT USE OF ASPIRIN] Onset: 05-03-2022 Episodic Other aftercare (1 source) Other prison (current) drug therapy; 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: [OTH SKILLED NURSING CURRENT DRUG THERAPY] Onset: 05-03-2022 Episodic Other aftercare (1 source) care home (current) use of oral hypoglycemic drugs; 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: [SKILLED NURSING USE ORAL HYPOGLYCEMIC DX] Onset: 05-03-2022 Episodic Other gastrointestinal disorders (3 sources) Diarrhea, unspecified; 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: [DIARRHEA UNSPECIFIED] Onset: 05-01-2022 Episodic Substance-related disorders (1 source) Nicotine dependence, cigarettes, uncomplicated; 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: [NICOTINE DEPEND CIGARETTES UNCOMP] Onset: 05-03-2022 Chronic Past or Other Problems Problem Classification Problem Date Documented Da te Episodic/Chronic Coronary atherosclerosis and other heart disease (3 sources) Presence of aortocoronary bypass graft; 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: [PRESENCE AORTOCORONARY BYPASS GRAFT] Onset: 05-03-2022 Episodic E Codes: Natural/environment (1 source) Other and [...] Value Interpretation Reference Range Facility Office Visiton 06-02-2023 Follow-up visit [id number] James Barros 1950 M Date Provider Department Center 06/02/2023 KATHY FELICIANO Family History Problem Relation Age of Onset Heart attack Maternal Grandfather Family Status - Relation Status Age at Maternal Grandfather Level of Service:28121 SD OFFICE/OUTPATIENT ESTABLISHED MOD MDM 30 MIN Normal [facility] Office Visiton 01-23-2023 Follow-up visit [id number] James Barros 1950 M Date Provider Department Center 01/23/2023 SARBJIT BARBOZA Family History Problem Relation Age of Onset Heart attack Maternal Grandfather Family Status - Relation Status Age at Maternal Grandfather Level of Service:87091 SD OFFICE/OUTPATIENT ESTABLISHED MOD MDM 30-39 MIN Normal [facility] Office Visiton 08-15-2022 Follow-up visit [id number] James Barros 1950 M Date Provider Department Center 08/15/2022 KATHY FELICIANO No family history on file Level of Service:96421 SD OFFICE/OUTPATIENT ESTABLISHED MOD MDM 30-39 MIN Reason for Visit and Comments: New Patient [632] Normal [facility] GLYCOHEMOGLOBIN A1Con 2022 ADA RECOMMENDATION SEE BELOW Normal [facility] Comment on above: Result Comment: ADA RECOMMENDED LIMIT 4.0 - 6.0 ADA THERAPEUTIC TARGET < 7.0 ACTION SUGGESTED > 7.0 Performed By: #### A 1C ####[facility] [id number] [place], [place] [address]BbDr. Vipul Jean Glucose [Mass/Vol] 197 mg/dL Normal [facility] Comment on above: Performed By: #### A 1C ####[facility] [id number] [place] [id number] Jean HbA1c (Bld) [Mass fraction] 8.5 % Critically high 4.5-6.2 [facility] Comment on above: Performed By: #### A 1C ####[facility] [address] [place] [id number] Jean AMYLASEon 05-01-2022 Amylase [Catalytic activity/Vol] 33 U/L Normal 25-115 [facility] Comment on above: Performed By: #### A MY, HSTROPN, LIPA, CMP #### [facility] [address] [place] [address] Dr. Vipul Jean CBC AUTO DIFFon 05-01-2022 BASO # 0.1 103/ul Normal 0.0-0.1 [facility] Comment on above: Performed By: #### C BC #### [facility] [address] [place] [address] Dr. Vipul Jean Basophils/100 WBC (Bld) 0.6 % Normal 0.2-2.0 [facility] Comment on above: Performed By: #### C BC #### [facility] [address] [place] [address] Dr. Vipul Jean EO # 0.1 103/ul Normal 0.0-0.7 [facility] Comment on above: Performed By: #### C BC #### [facility] [address] [place] [address] Dr. Vipul Jean Eosinophils/100 WBC (Bld) 1.4 % Normal 0.9-7.0 [facility] Comment on above: Performed By: #### C BC #### [facility] [address] [place] [address] Dr. Vipul Jean Erythrocyte distribution width (RBC) [Ratio] 12.2 % Normal 11.0-15.0 [facility] Comment on above: Performed By: #### C BC #### [facility] [address] [address] [address] Vipul Jean Hematocrit (Bld) [Volume fraction] 46.0 % Normal 42.0-54.0 [facility] Comment on above: Performed By: #### C BC #### [facility] [address] [place] [address] Dr. Vipul Jean Hemoglobin (Bld) [Mass/Vol] 16.7 g/dL Normal 14.0-18.0 [facility] Comment on above: Performed By: #### C BC #### [facility] [address] [place] [address] Dr. Vipul Jean IG # 0.04 10e3/ul Critically high 0.00-0.03 [facility] Comment on above: Performed By: #### C BC #### [facility] [address] [place] [address] Dr. Vipul Jean IG % 0.4 % Normal 0.0-0.5 [facility] Comment on above: Performed By: #### C BC #### [facility] [address] [place] [address] Dr. Vipul Jean LYMPH # 1.7 103/ul Normal 1.2-3.8 [facility] Comment on above: Performed By: #### C BC #### [facility] [address] [place] [address] Dr. Vipul Jean Lymphocytes/100 WBC (Bld) 18.7 % Critically low 20.5-60.0 [facility] Comment on above: Performed By: #### C BC #### [facility] [address] [place] [address] Dr. Vipul Jean MANUAL DIFF REQ NO Normal [facility] Comment on above: Performed By: #### C BC #### [facility] [address] [place] [address] Dr. Vipul Jean MCH (RBC) [Entitic mass] 33.3 pg Normal 25.9-34.0 [facility] Comment on above: Performed By: #### C BC #### [facility] [address] [address] [address] Vipul Jean MCHC (RBC) [Mass/Vol] 36.3 g/dL Critically high 29.9-35.2 [facility] Comment on above: Performed By: #### C BC #### [facility] [address] [address] [address] Vipul Jean MCV (RBC) [Entitic vol] 91.6 fL Normal 80.0-94.0 [facility] Comment on above: Performed By: #### C BC #### [facility] [address] [address] [address] Vipul Jean MONO # 0.6 103/ul Normal 0.3-0.8 [facility] Comment on above: Performed By: #### C BC #### [facility] [address] [place] [address] Dr. Vipul Jean Monocytes/100 WBC (Bld) 6.9 % Normal 1.7-12.0 [facility] Comment on above: Performed By: #### C BC #### [facility] [address] [place] [address] Dr. Vipul Jean NEUT # 6.5 103/ul Normal 1.4-6.5 [facility] Comment on above: Performed By: #### C BC #### [facility] [address] [place] [address] Dr. Vipul Jean Neutrophils/100 WBC (Bld) 72.0 % Normal 43.0-75.0 [facility] Comment on above: Performed By: #### C BC #### [facility] [address] [place] [address] Dr. Vipul Jean Platelet mean volume (Bld) [Entitic vol] 10.5 fL Normal 9.5-13.5 [facility] Comment on above: Performed By: #### C BC #### [facility] [address] [address] [address] Vipul Jean PLT 125 103/ul Critically low 150-450 [facility] Comment on above: Performed By: #### C BC #### [facility] [address] [address] [address] Vipul Jean RBC 5.02 106/ul Normal 4.70-6.10 [facility] Comment on above: Performed By: #### C BC #### [facility] [address] [address] [address] Vipul Jean WBC 9.0 103/ul Normal 4.0-11.0 [facility] Comment on above: Performed By: #### C BC #### [facility] [id number] Vipul Jean [address] ABD/PELVIS WO CONon [...] by: HOME MARX Date: 2022-05-01 15:31 Normal [facility] LIPASEon 05-01-2022 Lipase [Catalytic activity/Vol] 62.0 U/L Critically low 73.0-393.0 [facility] Comment on above: Performed By: #### A MY, HSTROPN, LIPA, CMP #### [facility] [address] [address] [address] Vipul Jean PROF 14(COMP METB)on 023 Albumin [Mass/Vol] 3.4 g/dL Normal 3.4-5.0 [facility] Comment on above: Performed By: #### A MY, HSTROPN, LIPA, CMP #### [facility] [address] [address] [address] Vipul Jean Albumin/Globulin [Mass ratio] 1.1 {ratio} Normal [facility] Comment on above: Performed By: #### A MY, HSTROPN, LIPA, CMP #### [facility] [address] [place] [address] Dr. Vipul Jean ALP [Catalytic activity/Vol] 93 U/L Normal 46-116 [facility] Comment on above: Performed By: #### A MY, HSTROPN, LIPA, CMP #### [facility] [address] [place] [address] Dr. Vipul Jean ALT [Catalytic activity/Vol] 38 U/L Normal 16-63 [facility] Comment on above: Performed By: #### A MY, HSTROPN, LIPA, CMP #### [facility] [address] [place] [address] Dr. Vipul Jean Anion gap [Moles/Vol] 10.6 mmol/L Normal [facility] Comment on above: Performed By: #### A MY, HSTROPN, LIPA, CMP #### [facility] [address] [place] [address] Dr. Vipul Jean AST [Catalytic activity/Vol] 29 U/L Normal 15-37 [facility] Comment on above: Performed By: #### A MY, HSTROPN, LIPA, CMP #### [facility] [address] [place] [address] Dr. Vipul Jean Bilirubin [Mass/Vol] 0.6 mg/dL Normal 0.2-1.0 [facility] Comment on above: Performed By: #### A MY, HSTROPN, LIPA, CMP #### [facility] [address] [place] [address] Dr. Vipul Jean Calcium [Mass/Vol] 10.0 mg/dL Normal 8.5-10.1 [facility] Comment on above: Performed By: #### A NICHOL, HSTROPN, LIPA, CMP #### [facility] [address] [address] [address] Vipul Jean Chloride [Moles/Vol] 105 mmol/L Normal 98-107 [facility] Comment on above: Performed By: #### A NICHOL, HSTROPTomas, LIPA, CMP #### [facility] [address] [address] [address] Vipul Jean CO2 [Moles/Vol] 24.6 mmol/L Normal 21.0-32.0 [facility] Comment on above: Performed By: #### A NICHOL HSTROPN, LIPA, CMP #### [facility] [address] [place] [address] Dr. Vipul Jean Creatinine [Mass/Vol] 1.08 mg/dL Normal 0.70-1.30 [facility] Comment on above: Performed By: #### A NICHOL HSTROPTomas, LIPA, CMP #### [facility] [address] [place] [address] Dr. Vipul Jean EGFR-AF BRAZILIAN >60 Normal >=60 [facility] Comment on above: Performed By: #### A NICHOL, HSTROPN, LIPA, CMP #### [facility] [address] [place] [address] Dr. Vipul Jean EGFR-NON AF BRAZILIAN >60 Normal >=60 [facility] Comment on above: Performed By: #### A NICHOL, HSTROPN, LIPA, CMP #### [facility] [address] [place] [address] Dr. Vipul Jean Globulin (S) [Mass/Vol] 3.2 g/dL Normal [facility] Comment on above: Performed By: #### A NICHOL, HSTROPN, LIPA, CMP #### [facility] [address] [address] [address] Vipul Jean Glucose [Mass/Vol] 215 mg/dL Critically high 74-106 [facility] Comment on above: Performed By: #### A NICHOL HSTROPN, LIPA, CMP #### [facility] [address] [address] [address] Vipul Jean Potassium [Moles/Vol] 4.2 mmol/L Normal 3.5-5.1 [facility] Comment on above: Performed By: #### A MY, HSTROPN, LIPA, CMP #### [facility] [address] [address] [address] Vipul Jean Protein [Mass/Vol] 6.6 g/dL Normal 6.4-8.2 [facility] Comment on above: Performed By: #### A MY, HSTROPN, LIPA, CMP #### [facility] [address] [address] [address] Vipul Jean Sodium [Moles/Vol] 136 mmol/L Normal 136-145 [facility] Comment on above: Performed By: #### A MY, HSTROPN, LIPA, CMP #### [facility] [address] [address] [address] Vipul Jean Urea nitrogen [Mass/Vol] 16.0 mg/dL Normal 7.0-18.0 [facility] Comment on above: Performed By: #### A MY, HSTROPN, LIPA, CMP #### [facility] [address] [place] [address] Dr. Vipul Jean Urea nitrogen/Creatinine [Mass ratio] 14.8 mg/mg Normal [facility] Comment on above: Performed By: #### A MY, HSTROPN, LIPA, CMP #### [facility] [address] [place] [address] Dr. Vipul Jean TROPONIN, HIGH SENSITIVITYon 05-01-2022 HSTROP 21.4 pg/mL Normal 4.0-76.1 [facility] Comment on above: Result Comment: CUT- OFF POINTS HAVE BEEN ESTABLISHED BASED ON THE FOURTH UNIVERSAL DEFINITIONS OF MYOCARDIAL INFARCTION. THE UPPER REFERENCE LIMIT (URL) OF TROPONIN, DEFINED THE 99TH PERCENTILE OF cTnI DISTRIBUTION IN A REFERENCE POPULATION, HAS BEEN CONFIRMED THE DECISION THRESHOLD FOR [place] DIAGNOSIS. Performed By: #### A MY, HSTROPN, LIPA, CMP #### [facility] [address] [address] [address] Vipul Jean CBC AUTO DIFFon 02-14-2022 BASO # 0.1 103/ul Normal 0.0-0.1 [facility] Comment on above: Performed By: #### C BC #### [facility] [address] [address] [address] Vipul Jean Basophils/100 WBC (Bld) 0.6 % Normal 0.2-2.0 [facility] Comment on above: Performed By: #### C BC #### [facility] [address] [address] [address] Vipul Jean EO # 0.1 103/ul Normal 0.0-0.7 [facility] Comment on above: Performed By: #### C BC #### [facility] [address] [address] [address] Vipul Jean Eosinophils/100 WBC (Bld) 1.6 % Normal 0.9-7.0 [facility] Comment on above: Performed By: #### C BC #### [facility] [address] [address] [address] Vipul Jean Erythrocyte distribution width (RBC) [Ratio] 12.1 % Normal 11.0-15.0 [facility] Comment on above: Performed By: #### C BC #### [facility] [address] [address] [address] Vipul Jean Hematocrit (Bld) [Volume fraction] 47.9 % Normal 42.0-54.0 [facility] Comment on above: Performed By: #### C BC #### [facility] [address] [address] [address] Vipul Jean Hemoglobin (Bld) [Mass/Vol] 17.1 g/dL Normal 14.0-18.0 [facility] Comment on above: Performed By: #### C BC #### [facility] [address] [address] [address] Vipul Jean IG # 0.03 10e3/ul Normal 0.00-0.03 [facility] Comment on above: Performed By: #### C BC #### [facility] [address] [place] [address] Dr. Vipul Jean IG % 0.4 % Normal 0.0-0.5 [facility] Comment on above: Performed By: #### C BC #### [facility] [address] [place] [address] Dr. Vipul Jean LYMPH # 1.8 103/ul Normal 1.2-3.8 [facility] Comment on above: Performed By: #### C BC #### [facility] [address] [place] [address] Dr. Vipul Jean Lymphocytes/100 WBC (Bld) 22.4 % Normal 20.5-60.0 [facility] Comment on above: Performed By: #### C BC #### [facility] [address] [place] [address] Dr. Vipul Jean MANUAL DIFF REQ NO Normal [facility] Comment on above: Performed By: #### C BC #### [facility] [address] [place] [address] Dr. Vipul Jean MCH (RBC) [Entitic mass] 33.0 pg Normal 25.9-34.0 [facility] Comment on above: Performed By: #### C BC #### [facility] [address] [place] [address] Dr. Vipul Jean MCHC (RBC) [Mass/Vol] 35.7 g/dL Critically high 29.9-35.2 [facility] Comment on above: Performed By: #### C BC #### [facility] [address] [place] [address] Dr. Vipul Jean MCV (RBC) [Entitic vol] 92.5 fL Normal 80.0-94.0 [facility] Comment on above: Performed By: #### C BC #### [facility] [address] [place] [address] Dr. Vipul Jaen MONO # 0.6 103/ul Normal 0.3-0.8 [facility] Comment on above: Performed By: #### C BC #### [facility] [address] [place] [address] Dr. Vipul Jean Monocytes/100 WBC (Bld) 7.0 % Normal 1.7-12.0 [facility] Comment on above: Performed By: #### C BC #### [facility] [address] [place] [address] Dr. Vipul Jean NEUT # 5.5 103/ul Normal 1.4-6.5 [facility] Comment on above: Performed By: #### C BC #### [facility] [address] [place] [address] Dr. Vipul Jean Neutrophils/100 WBC (Bld) 68.0 % Normal 43.0-75.0 [facility] Comment on above: Performed By: #### C BC #### [facility] [address] [place] [address] Dr. Vipul Jean Platelet mean volume (Bld) [Entitic vol] 11.0 fL Normal 9.5-13.5 [facility] Comment on above: Performed By: #### C BC #### [facility] [address] [place] [address] Dr. Vipul Jean PLT 101 103/ul Critically low 150-450 [facility] Comment on above: Performed By: #### C BC #### [facility] [address] [place] [address] Dr. Vipul Jean RBC 5.18 106/ul Normal 4.70-6.10 [facility] Comment on above: Performed By: #### C BC #### [facility] [address] [place] [address] Dr. Vipul Jean WBC 8.1 103/ul Normal 4.0-11.0 [facility] Comment on above: Performed By: #### C BC #### [facility] [address] [place] [address] Dr. Vipul Jean CRPon 02-14-2022 CRP [Mass/Vol] mg/L Normal <=1.0 [facility] Comment on above: Performed By: #### C RP, URIC #### [facility] [address] [address] [address] Vipul Jean URIC ACID SERUMon 02-14-2022 Urate [Mass/Vol] 4.4 mg/dL Normal 3.5-7.2 [facility] Comment on above: Performed By: #### C RP, URIC #### [facility] [address] [address] [address] 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 Coronadocierrol HistorySubstance Use Topics- Smoking status: Current Some [...] kg (204 lb 9.6 oz) BMI 33.02 kg/h2Failozq Appearance: alert and oriented, appearing in no [...] ABS GRAN CT + CBC (FOR REMOTE [facility] USE)2. S/P CABG x 5 - ICD9: V45.81, ICD10: Z95.1See above3. Undescended left testicle - ICD9: 752.51, ICD10: Q53.10See EDITH Ruizeferring Provider: AUDREY OSHEA [[id number]]Allergies As of Date: 06/15/2017(No Known Allergies)Date Reviewed: 06/15/2017Reviewed by: Liliane Molina - Fully AssessedReason for Visit: low platelets [Other] Cmt: new patient consultationPrimary Visit Diagnosis:Thrombocytopeni a (HCC) [D69.6] Other Visit Diagnoses: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 left testicle [Q53.10]Order(s):ABS GRAN CT + CBC (FOR REMOTE [facility] USE) [SQRAGCBC] Order #: [id number] FUTUREFollow-up and Disposition History RecordedPrescriptions as of [...] >> July Jesse 06/15/2017 3:27 PM >> MOLINAJulyJun 15, 2017 3:27 PM Received from: External Pharmacy TRAZODONE 50 MG TABLET >> July Molina 06/15/2017 3:27 PM >> JESSEJulyJun 15, 2017 3:27 PM Received from: External PharmacyProblem List As Of Date 06/15/2017 Noted Resolved Thrombocytopenia (HCC) [D69.6] INVALID FOR* S/P CABG x 5 [Z95.1] INVALID FOR* Undescended left testicle [Q53.10] INVALID FOR*Encounter Status:Closed by CAREY TREVIÑO MD on 06/15/17 Normal [facility] PROGRESSon 06-15-2017 PROGRESS HNO ID: [id number] thor: [place]: (none)Author Type: PhysicianType: Progress NotesFiled: 06/15/2017 3:50 PMNote Text:Heidy Barros is a 67 year old male [...] kg (204 lb 9.6 oz) BMI 33.02 kg/r3Nuxoxjg Appearance: alert and oriented, appearing in no [...] ABS GRAN CT + CBC (FOR REMOTE [facility] USE)2. S/P CABG x 5 - ICD9: V45.81, ICD10: Z95.1See above3. Undescended left testicle - ICD9: 752.51, ICD10: Q53.10See Cruz Treviño MD Normal [facility] Remote Abs Gran + CBC (for [facility] use only)on 06-15-2017 Absol Gran Count 5.25 k/uL Normal 1.45-7.50 Fe urbina [facility] Erythrocyte distribution width Auto Ratio (RBC) 12.4 % Normal 11.5-15.0 [facility] Erythrocytes (RBC) 4.87 10*6/uL Normal 4.20-6.00 [facility] (HCT) 45.5 % Normal 39.0-51.0 [facility] Hemoglobin mass conc (Bld) 15.7 g/dL Normal 13.0-17.0 [facility] MCH 32.2 pG Normal 26.0-34.0 [facility] MCHC mass conc (RBC) 34.5 g/dL Normal 30.5-36.0 [facility] MCV 93.4 fL Normal 80.0-100.0 [facility] Platelet mean volume (PMV) 10.8 fL Normal 9.0-12.7 [facility] Platelets 116 10*3/uL Low 150-400 [facility] WBC (Leukocytes) 7.93 10*3/uL Normal 3.70-11.00 [facility] Encounters Encounter Date Encounter Type Care Provider Facility Start: 06-16-2023 ambulatory [facility] Start: 06-02-2023 End: 06-02-[address] [facility] Start: 05-25-2023 End: 06-16-2023 ambulatory [facility] Start: 05-23-2023 End: 05-28-2023 Emergency department patient visit [facility] Start: 04-24-2023 End: 04-24-2023 ambulatory TERRANCE HORTON Not Available Start: 03-02-2023 End: 03-02-2023 ambulatory KARINA PARKINSON Not Available Start: 01-23-2023 End: 01-23-20[facility] Start: 08-15-2022 End: 08-15-[address] [facility] Start: 07-27-2022 End: 07-28-[address] TERRANCE HORTON Facility:[facility] Start: 05-01-2022 End: 05-01-[address] TERRANCE HORTON Facility:[facility] Start: 02-14-2022 End: 02-14-[address] TERRANCE HORTON Facility:[facility] Start: 06-15-2017 End: 06-16-2017 Ambulatory CAREY TREVIÑO [facility] Payers Date Payer Category Payer Medicare [id number] 1950 Unknown [id number] 2.16.84 [id number] 1950 Unknown [id number] 2.16.84 [id number] 1950 Unknown [id number] 2.16.84 [id number] 1950 Unknown [id number] 2.16.84 [id number] 1950 Unknown [id number] 2.16.840 [id number] 1950 Unknown [id number] 2.16.8 [id number] 1950 Unknown [id number] 2.16.8 [id number] 1950 Unknown [id number] 2.16.8 [id number] Progress note 06-02-2023 Note Date & Type Note Facility 06-02-2023 Note error [facility] Progress note 06-02-2023 Note Date & Type Note Facility 06-02-2023 Note Cardiology [facility] No te Chief Complaint: establish care HPI: James Barros is a 72 y.o. male with a past medical history including HTN, HLD, COPD, and CAD s/p CABG in 2010. 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 Patient presents today for follow-up. He denies any cardiac complaints or concerns. His states that he was seen in the hospital about a month or so ago due to altered mental status. She was concerned about cardiac etiology, but she and he adamantly Denies any chest pain. He did have a stress test done at the time, per 's report, done for surveillance given no recent stress test. Stress test demonstrated a fixed inferior defect, but no reversible ischemia. Today, patient states that he is doing well. He denies any chest pain. He denies any shortness of breath. He denies any lower extreme edema, orthopnea, or paroxysmal nocturnal dyspnea Cardiology ROS: GENERAL: Denies fever, chills, night sweats, weight loss. HEENT: Denies changes in vision, photophobia, changes in hearing, epistaxis, oral bleeding. CARDIOVASCULAR: As per HPI RESPIRATORY: Denies SOB, coughing, wheezing GI: Denies abdominal pain, nausea/vomiting, heartburn, melena/hematochezia. RENAL: Denies dysuria, hematuria, flank pain. MSK: Denies muscle weakness/pain, arthralgias/joint pain. NEUROLOGIC: Denies LOC, weakness, numbness, headaches. SKIN: Denies abnormal rashes or bleeding. PSYCH: Denies significant anxiety, depression, sleep disturbances. Past Medical History He has a past medical history of Coronary artery disease, Hyperlipidemia, and Hypertension. Surgical History He has a past surgical history that includes Cardiac catheterization and Coronary artery bypass graft. Social History He reports that he has been smoking cigarettes. He has been smoking an average of 1 pack per day. He has never used smokeless tobacco. He reports that he does not currently use alcohol. No history on file for drug use. Family History Family History Problem Relation Name Age of Onset Heart attack Maternal Grandfather Medications Current Outpatient Medications on File Prior to Visit Medication Sig Dispense Refill ARIPiprazole (Abilify) 2 mg tablet Take 2 mg by mouth at bedtime. aspirin 81 mg EC tablet Take 81 mg by mouth in the morning. metFORMIN (Glucophage) 500 mg tablet Take 500 mg by mouth with breakfast and with evening meal. rosuvastatin (Crestor) 40 mg tablet Take 1 tablet (40 mg) by mouth in the morning. 90 tablet 3 lisinopril 5 mg tablet Take 5 mg by mouth in the morning. metoprolol succinate XL (Toprol-XL) 25 mg 24 hr tablet Take 25 mg by mouth in the morning and at bedtime. Do not crush or chew. [DISCONTINUED] glipiZIDE XL (Glucotrol XL) 10 mg 24 hr tablet Take 10 mg by mouth in the morning. Do not crush, chew, or split. [DISCONTINUED] metroNIDAZOLE (Flagyl) 500 mg tablet Take 500 mg by mouth in the morning and at bedtime. [DISCONTINUED] rosuvastatin (Crestor) 20 mg tablet Take 40 mg by mouth in the morning. No current facility-administered medications on file prior to visit. Allergies Patient has no known allergies. Physical Exam VITAL SIGNS: BP 121/70 (BP Location: Left arm, Patient Position: Sitting) Pulse 62 Ht 1.702 m (5' 7 ) Wt 81.2 kg (179 lb) SpO2 98% BMI 28.04 kg/m??? Constitutional: Well developed, Well nourished, No [...] -CAD s/p CABG: no angina or anginal equivalents. -Abnormal stress test: fixed defect -HTN: well controlled -HLD: On resuvastatin -Tobacco abuse Plan: -Continue Aspirin, beta andree for CAD. Continue resuvastatin 40 mg daily for CAD and HLD -Given fixed defect in the territory of previous graft, in addition to absence of symptoms, no further ischemic evaluation advised at this -Continue lisinopril and Toprol for HTN --I spent 7 minutes counseling the patient on the importance of smoking cessation. I emphasized (more content not included)... [facility] Progress note 01-23-2023 Note Date & Type Note Facility 01-23-2023 Note Cardiology Clinic No te Subjective James Barros is a 72 y.o. year old male patient with HTN, HLD, COPD, and CAD s/p CABG in 2010 seen in follow-up. 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 Update: 08/15/2022 Patient adamantly [...] for this visit: Coronary artery disease involving [place] coronary artery of [place] heart with angina pectoris ([facility]/HCC) Essential hypertension Mixed hyperlipidemia Hx of CABG Chronic obstructive pulmonary disease, unspecified COPD type (CMS/HCC) Tobacco dependence Intermittent claudication ([facility]) Plan 1. Coronary artery disease [...] of twice daily. (more content not included)... [facility] Progress note 01-23-2023 Note Date & [...] All other systems reviewed and are negative. [facility] Progress note 08-15-2022 Note Date & Type Note Facility 08-15-2022 Note Cardiology Clinic No te Chief Complaint: establish care HPI: James Barros is a 72 y.o. male with a past medical history including HTN, HLD, COPD, and CAD s/p CABG in 2010. 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 Patient adamantly denies any [...] or concerns. Kathy Paz MD Interventional Cardiology [facility] Summary Purpose Family History No Family [...] section and content) DATE CREATED AUTHOR 10/06/2017 [facility] DATE CREATED AUTHOR AUTHOR'S ORGANIZ ATION 08/01/2022 [facility] DATE CREATED AUTHOR AUTHOR'S ORGANIZ ATION 04/25/2023 [facility] EP[facility] DATE CREATED AUTHOR AUTHOR'S ORGANIZ ATION 05/29/2023 [facility] DATE CREATED AUTHOR AUTHOR'S ORGANIZ ATION 06/04/2023 [facility] DATE CREATED AUTHOR AUTHOR'S ORGANIZ ATION 06/18/2023 [facility] FOR RECORDS PERTAINING TO PATIENTS WHO ARE [...] BE BASED ON THE PRIMARY CLINICAL RECORDS. [facility] [employer] [facility]. provides no warranty or guarantee of the accuracy or completeness of information in this document.
[2023-06-28 11:25] LABS: Basophils Absolute Auto 0.1 10^3/uL (0.0-0.1); Basophils Percent Auto 0.8 % (0.2-2.0); Eosinophils Absolute Auto 0.2 10^3/uL (0.0-0.7); Eosinophils Percent Auto 1.8 % (0.9-7.0); Hematocrit 44.7 % (42.0-54.0); Immature Granulocytes Abs Auto 0.02 10^3/uL (0.00-0.03); Immature Granulocytes Pct Auto 0.2 % (0.0-0.5); Lymphocytes Absolute Auto 2.3 10^3/uL (1.2-3.8); Lymphocytes Percent Auto 25.7 % (20.5-60.0); Mean Corpuscular HGB Conc 35.8 g/dL (29.9-35.2); Mean Corpuscular Hemoglobin 33.3 pg (25.9-34.0); Mean Corpuscular Volume 92.9 fL (80.0-94.0); Mean Platelet Volume 10.2 fL (9.5-13.5); Monocytes Absolute Auto 0.8 10^3/uL (0.3-0.8); Monocytes Percent Auto 9.3 % (1.7-12.0); Neutrophils Absolute Auto 5.6 10^3/uL (1.4-6.5); Neutrophils Percent Auto 62.2 % (43.0-75.0); Platelet Count 131 10^3/uL (150-450); Red Blood Count 4.81 10^6/uL (4.70-6.10); Red Cell Distribution Width 11.9 % (11.0-15.0)
[2023-06-28 11:37] LABS: Ammonia 29 umol/L (11-32)
[2023-06-28 12:59] LABS: Alanine Aminotransferase 38 U/L (16-63); Albumin Globulin Ratio 1.1; Albumin Level 3.8 g/dL (3.4-5.0); Alkaline Phosphatase 92 U/L (46-116); Anion Gap 15.3; Aspartate Amino Transferase 31 U/L (15-37); Bilirubin Direct 0.3 mg/dL (0.0-0.2); Chloride 92 mmol/L (98-107); Estimated GFR (African America >60 (>=60); Estimated GFR (Non-African Ame >60 (>=60); Globulin 3.6 g/dL; Glucose 150 mg/dL (74-106); Potassium 4.3 mmol/L (3.5-5.1); Sodium 125 mmol/L (136-145); Total Protein 7.4 g/dL (6.4-8.2)
== END 2023-06-28 10:55 | disposition home or self-care (01) ==
LOC: LAB 10:56
PROVIDERS: PCP Family Medicine; Visit Provider Family Medicine
DX: R40.4 Transient alteration of awareness (principal); Z79.899 Other long term (current) drug therapy
CPT/HCPCS: 36415; 80048; 80076; 82140; 85025

== ENCOUNTER 2023-08-02 00:50 | Inpatient (IN) | payer MEDICARE, SELFPAY ==
[2023-08-02] VITALS (63 sets, daily range): BP systolic 83–197; BP diastolic 45–82; PULSE 54–82; TEMP 36.3–37; O2SAT 96–100; BMI 26.6; BMI 25.7
--- NOTE | 2023-08-02 01:05 | ECG_ITS ---
[facility] Test Date: 2023-08-02 Pat Name: JAMES POPE Department: Room: - Gender: Male Fitter Type Bar And Segment: : 1950 Requested By: TERRANCE HORTON Order Number: [id number] Reading MD: ROBSON DUARTE Measurements Intervals [place] Rate: 63 P: 30 MN: 270 QRS: -70 QRSD: 154 T: 95 QT: 446 QTc: 453 Interpretive Statements 1100 Sinus rhythm 2231 First degree AV block 2450 Right bundle branch block 2630 Left anterior fascicular block 3534 Lateral myocardial infarction, age undetermined 9150 abnormal ECG Electronically Signed On 08-02-2023 7:04:35 EDT by ROBSON DUARTE
--- OUTSIDE RECORDS SUMMARY | 2023-08-02 01:09 | XMS_ITS | CCD ---
Author Organization [facility] Care Team Providers Care Sulfur Chloride Operator Name Role Phone CAREY TREVIÑO Unavailable Unavailable [...] e ALICIA, NORY Consulting Unavailable NADERER, TERRANCE Primary Care Unavailable MALAIYANDI, FARRUKH P Consulting Unavailable INPATIENT, TELENEUROLOGY Consulting Unavail able SARBJIT OLIVERA Attending Unavailable ALGHOTHANI, KATHY Attending Unavailable ALGHOTHANI, KATHY Attending Unavailable NADERER, TERRANCE Attending Unavailable RUSHERKARINA Attending Unavailable NADERER, TERRANCE Attending Unavailable SHINE ELLISON Referring Unavailable NADERER, TERRANCE Primary Care Unavailable NADERER, TERRANCE Primary Care Unavailable SHINE ELLISON Referring Unavailable Allergies Allergy Classification Reported Allergen(s) Allergy Type Date of Onset Reaction(s) Facility (1 source) bee venom Drug allergy (disorder) [facility] Repository (1 source) Iodine (And Iodine Containting Drugs) Drug allergy (disorder) [facility] Repository Problems Active Problems Problem Classification Problem Date Documented Da te Episodic/Chronic Chronic obstructive pulmonary disease and bronchiectasis (2 sources) Chronic obstructive pulmonary disease, unspecified; 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: [Chronic obstructive pulmonary disease, unspecified] Onset: 01-23-2023 Chronic Coagulation and hemorrhagic disorders (1 source) Thrombocytopenia, unspecified; 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: [Thrombocytopenia, unspecified] Onset: 06-15-2017 Chronic Coronary atherosclerosis and other heart disease (3 sources) Atherosclerotic heart disease of three affiliated coronary artery without angina pectoris; 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: [Atherosclerotic heart disease of three affiliated coronary artery with unspecified angina pectoris] Onset: [...] Onset: 05-03-2022 Chronic Other aftercare (1 source) long-term (current) use of aspirin; 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: [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] Onset: 05-03-2022 Episodic Other aftercare (1 source) Other ocean transportation intermediary (current) drug therapy; 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: [OTH CUSTODIAL CURRENT DRUG THERAPY] Onset: 05-03-2022 Episodic Other aftercare (1 source) long-term (current) use of oral hypoglycemic drugs; 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: [CUSTODIAL USE ORAL HYPOGLYCEMIC DX] Onset: 05-03-2022 Episodic [...] Range Facility Office Visiton 06-02-2023 Follow-up visit [id number] James Barros 1950 M Date Provider Department Center 06/02/2023 KATHY FELICIANO Family History Problem Relation Age of Onset Heart attack Maternal Grandfather Family Status - Relation Status Age at Maternal Grandfather Level of Service:52076 [place] OFFICE/OUTPATIENT ESTABLISHED MOD MDM 30 MIN Normal [facility] Office Visiton 01-23-2023 Follow-up visit [id number] James Barros Floresita 1950 M [facility] Provider Department Center 01/23/2023 [id number]-RUQYZJUDISARBJIT PEREZ [facility] Family History Problem Relation Age of Onset Heart attack Maternal Grandfather Family Status - Relation Status Age at Maternal Grandfather Level of Service:67524 [place] OFFICE/OUTPATIENT ESTABLISHED MOD MDM 30-39 MIN Normal [facility] Office Visiton 08-15-2022 Follow-up visit [id number] James Barros Floresita 1950 M Date Provider [facility] No family history on file Level of Service:69616 [place] OFFICE/OUTPATIENT ESTABLISHED MOD MDM 30-39 MIN Reason for Visit and Comments: New Patient [632] Normal [facility] GLYCOHEMOGLOBIN A1Con 2022 ADA RECOMMENDATION SEE BELOW Normal [facility] Comment on above: Result Comment: ADA RECOMMENDED LIMIT 4.0 - 6.0 ADA THERAPEUTIC TARGET < 7.0 ACTION SUGGESTED > 7.0 Performed By: #### A 1C ####[address] Yilan Jean Glucose [Mass/Vol] 197 mg/dL Normal [facility] Comment on above: Performed By: #### A 1C ####[facility] [id number] [place] [address]Dr. Vipul Jean HbA1c (Bld) [Mass fraction] 8.5 % Critically high 4.5-6.2 [facility] Comment on above: Performed By: #### A 1C ####[facility] [id number] [place] [address]DrNoelle Jean AMYLASEon 05-01-2022 Amylase [Catalytic activity/Vol] 33 U/L Normal 25-115 [facility] Comment on above: Performed By: #### A MY, HSTROPN, LIPA, CMP #### [facility] [address] [place] [address] Dr. Vipul Jean CBC AUTO DIFFon 05-01-2022 BASO # 0.1 103/ul Normal 0.0-0.1 [facility] Comment on above: Performed By: #### C BC #### [facility] [address] [place] [address] Dr. Vipul Jean Basophils/100 WBC (Bld) 0.6 % Normal 0.2-2.0 [facility] Comment on above: Performed By: #### C BC #### [facility] [address] [place] [address] Dr. Vipul Jean EO # 0.1 103/ul Normal 0.0-0.7 [facility] Comment on above: Performed By: #### C BC #### [facility] [address] [place] [address] Dr. Vipul Jean Eosinophils/100 WBC (Bld) 1.4 % Normal 0.9-7.0 [facility] Comment on above: Performed By: #### C BC #### [facility] [address] [place] [address] Dr. Vipul Jean Erythrocyte distribution width (RBC) [Ratio] 12.2 % Normal 11.0-15.0 [facility] Comment on above: Performed By: #### C BC #### [facility] [address] [place] [address] Dr. Vipul Jean Hematocrit (Bld) [Volume fraction] 46.0 % Normal 42.0-54.0 [facility] Comment on above: Performed By: #### C BC #### [facility] [address] [place] [address] Dr. Vipul Jean Hemoglobin (Bld) [Mass/Vol] 16.7 g/dL Normal 14.0-18.0 [facility] Comment on above: Performed By: #### C BC #### [facility] [address] [place] [address] Dr. Vipul Jean IG # 0.04 10e3/ul Critically high 0.00-0.03 [facility] Comment on above: Performed By: #### C BC #### [facility] [address] [place] [address] Dr. Vipul Jean IG % 0.4 % Normal 0.0-0.5 [facility] Comment on above: Performed By: #### C BC #### [facility] [address] [place] [address] Dr. Vipul Jean LYMPH # 1.7 103/ul Normal 1.2-3.8 [facility] Comment on above: Performed By: #### C BC #### [facility] [address] [place] [address] Dr. Vipul Jean Lymphocytes/100 WBC (Bld) 18.7 % Critically low 20.5-60.0 [facility] Comment on above: Performed By: #### C BC #### [facility] [address] [place] [address] Dr. Vipul Jean MANUAL DIFF REQ NO Normal [facility] Comment on above: Performed By: #### C BC #### [facility] [address] [place] [address] Dr. Vipul Jean MCH (RBC) [Entitic mass] 33.3 pg Normal 25.9-34.0 [facility] Comment on above: Performed By: #### C BC #### [facility] [address] [address] [address] Vipul Jean MCHC (RBC) [Mass/Vol] 36.3 g/dL Critically high 29.9-35.2 [facility] Comment on above: Performed By: #### C BC #### [facility] [address] [place] [address] Dr. Vipul Jean MCV (RBC) [Entitic vol] 91.6 fL Normal 80.0-94.0 [facility] Comment on above: Performed By: #### C BC #### [facility] [address] [place] [address] Dr. Vipul Jean MONO # 0.6 103/ul Normal 0.3-0.8 [facility] Comment on above: Performed By: #### C BC #### [facility] [address] [place] [address] Dr. Vipul Jean Monocytes/100 WBC (Bld) 6.9 % Normal 1.7-12.0 [facility] Comment on above: Performed By: #### C BC #### [facility] [address] [place] [address] Dr. Vipul Jean NEUT # 6.5 103/ul Normal 1.4-6.5 [facility] Comment on above: Performed By: #### C BC #### [facility] [address] [place] [address] Dr. Vipul Jean Neutrophils/100 WBC (Bld) 72.0 % Normal 43.0-75.0 [facility] Comment on above: Performed By: #### C BC #### [facility] [address] [place] [address] Dr. Vipul Jean Platelet mean volume (Bld) [Entitic vol] 10.5 fL Normal 9.5-13.5 [facility] Comment on above: Performed By: #### C BC #### [facility] [address] [place] [address] Dr. Vipul Jean PLT 125 103/ul Critically low 150-450 [facility] Comment on above: Performed By: #### C BC #### [facility] [address] [place] [address] Dr. Vipul Jean RBC 5.02 106/ul Normal 4.70-6.10 [facility] Comment on above: Performed By: #### C BC #### [facility] [address] [address] [address] Vipul Jean WBC 9.0 103/ul Normal 4.0-11.0 [facility] Comment on above: Performed By: #### C BC #### [facility] [address] ABD/PELVIS WO CONon [...] HOME MARX Date: 2022-05-01 15:31 Normal [facility] LIPASEon 05-01-2022 Lipase [Catalytic activity/Vol] 62.0 U/L Critically low 73.0-393.0 [facility] Comment on above: Performed By: #### A MY, HSTROPN, LIPA, CMP #### [facility] [address] [address] [address] Vipul Jean PROF 14(COMP METB)on 023 Albumin [Mass/Vol] 3.4 g/dL Normal 3.4-5.0 [facility] Comment on above: Performed By: #### A MY, HSTROPN, LIPA, CMP #### [facility] [address] [place] [address] Dr. Vipul Jean Albumin/Globulin [Mass ratio] 1.1 {ratio} Normal [facility] Comment on above: Performed By: #### A MY, HSTROPN, LIPA, CMP #### [facility] [address] [place] [address] Dr. Vipul Jean ALP [Catalytic activity/Vol] 93 U/L Normal 46-116 [facility] Comment on above: Performed By: #### A MY, HSTROPN, LIPA, CMP #### [facility] [address] [place] [address] Dr. Vipul Jean ALT [Catalytic activity/Vol] 38 U/L Normal 16-63 [facility] Comment on above: Performed By: #### A NICHOL, HSTROPN, LIPA, CMP #### [facility] [address] [place] [address] Dr. Vipul Jean Anion gap [Moles/Vol] 10.6 mmol/L Normal [facility] Comment on above: Performed By: #### A NICHOL, HSTROPN, LIPA, CMP #### [facility] [address] [place] [address] Dr. Vipul Jean AST [Catalytic activity/Vol] 29 U/L Normal 15-37 [facility] Comment on above: Performed By: #### A NICHOL, HSTROPN, LIPA, CMP #### [facility] [address] [place] [address] Dr. Vipul Jean Bilirubin [Mass/Vol] 0.6 mg/dL Normal 0.2-1.0 [facility] Comment on above: Performed By: #### A MY, HSTROPN, LIPA, CMP #### [facility] [address] [place] [address] Dr. Vipul Jean Calcium [Mass/Vol] 10.0 mg/dL Normal 8.5-10.1 [facility] Comment on above: Performed By: #### A MY, HSTROPN, LIPA, CMP #### [facility] [address] [place] [address] Dr. Vipul Jean Chloride [Moles/Vol] 105 mmol/L Normal 98-107 [facility] Comment on above: Performed By: #### A MY, HSTROPN, LIPA, CMP #### [facility] [address] [place] [address] Dr. Vipul Jean CO2 [Moles/Vol] 24.6 mmol/L Normal 21.0-32.0 [facility] Comment on above: Performed By: #### A MY, HSTROPN, LIPA, CMP #### [facility] [address] [place] [address] Dr. Vipul Jean Creatinine [Mass/Vol] 1.08 mg/dL Normal 0.70-1.30 [facility] Comment on above: Performed By: #### A MY, HSTROPN, LIPA, CMP #### [facility] [address] [place] [address] Dr. Vipul Jean EGFR-AF IRANIAN >60 Normal >=60 [facility] Comment on above: Performed By: #### A MY, HSTROPN, LIPA, CMP #### [facility] [address] [place] [address] Dr. Vipul Jean EGFR-NON AF IRANIAN >60 Normal >=60 [facility] Comment on above: Performed By: #### A MY, HSTROPN, LIPA, CMP #### [facility] [address] [place] [address] Dr. Vipul Jean Globulin (S) [Mass/Vol] 3.2 g/dL Normal [facility] Comment on above: Performed By: #### A MY, HSTROPN, LIPA, CMP #### [facility] [address] [place] [address] Dr. Vipul Jean Glucose [Mass/Vol] 215 mg/dL Critically high 74-106 [facility] Comment on above: Performed By: #### A MY, HSTROPN, LIPA, CMP #### [facility] [address] [address] [address] Vipul Jean Potassium [Moles/Vol] 4.2 mmol/L Normal 3.5-5.1 [facility] Comment on above: Performed By: #### A MY, HSTROPN, LIPA, CMP #### [facility] [address] [address] [address] Vipul Jean Protein [Mass/Vol] 6.6 g/dL Normal 6.4-8.2 [facility] Comment on above: Performed By: #### A MY, HSTROPN, LIPA, CMP #### [facility] [address] [address] [address] Vipul Jean Sodium [Moles/Vol] 136 mmol/L Normal 136-145 [facility] Comment on above: Performed By: #### A MY, HSTROPN, LIPA, CMP #### [facility] [address] [place] [address] Dr. Vipul Jean Urea nitrogen [Mass/Vol] 16.0 mg/dL Normal 7.0-18.0 [facility] Comment on above: Performed By: #### A MY, HSTROPN, LIPA, CMP #### [facility] [address] [place] [address] Dr. Vipul Jean Urea nitrogen/Creatinine [Mass ratio] 14.8 mg/mg Normal [facility] Comment on above: Performed By: #### A MY, HSTROPN, LIPA, CMP #### [facility] [address] [address] [address] Vipul Jean TROPONIN, HIGH SENSITIVITYon 05-01-2022 HSTROP 21.4 pg/mL Normal 4.0-76.1 [facility] Comment on above: Result Comment: CUT- OFF POINTS HAVE BEEN ESTABLISHED BASED ON THE FOURTH UNIVERSAL DEFINITIONS OF MYOCARDIAL INFARCTION. THE UPPER REFERENCE LIMIT (URL) OF TROPONIN, DEFINED THE 99TH PERCENTILE OF cTnI DISTRIBUTION IN A REFERENCE POPULATION, HAS BEEN CONFIRMED THE DECISION THRESHOLD FOR [place] DIAGNOSIS. Performed By: #### A MY, HSTROPN, LIPA, CMP #### [facility] [address] [place] [address] Dr. Vipul Jean CBC AUTO DIFFon 02-14-2022 BASO # 0.1 103/ul Normal 0.0-0.1 [facility] Comment on above: Performed By: #### C BC #### [facility] [address] [place] [address] Dr. Vipul Jean Basophils/100 WBC (Bld) 0.6 % Normal 0.2-2.0 [facility] Comment on above: Performed By: #### C BC #### [facility] [address] [place] [address] Dr. Vipul Jean EO # 0.1 103/ul Normal 0.0-0.7 [facility] Comment on above: Performed By: #### C BC #### [facility] [address] [place] [address] Dr. Vipul Jean Eosinophils/100 WBC (Bld) 1.6 % Normal 0.9-7.0 [facility] Comment on above: Performed By: #### C BC #### [facility] [address] [place] [address] Dr. Vipul Jean Erythrocyte distribution width (RBC) [Ratio] 12.1 % Normal 11.0-15.0 [facility] Comment on above: Performed By: #### C BC #### [facility] [address] [place] [address] Dr. Vpiul Jean Hematocrit (Bld) [Volume fraction] 47.9 % Normal 42.0-54.0 [facility] Comment on above: Performed By: #### C BC #### [facility] [address] [place] [address] Dr. Vipul Jean Hemoglobin (Bld) [Mass/Vol] 17.1 g/dL Normal 14.0-18.0 [facility] Comment on above: Performed By: #### C BC #### [facility] [address] [place] [address] Dr. Vipul Jean IG # 0.03 10e3/ul Normal 0.00-0.03 [facility] Comment on above: Performed By: #### C BC #### [facility] [address] [place] [address] Dr. Vipul Jean IG % 0.4 % Normal 0.0-0.5 [facility] Comment on above: Performed By: #### C BC #### [facility] [address] [place] [address] Dr. Vipul Jean LYMPH # 1.8 103/ul Normal 1.2-3.8 [facility] Comment on above: Performed By: #### C BC #### [facility] [address] [place] [address] Dr. Vipul Jean Lymphocytes/100 WBC (Bld) 22.4 % Normal 20.5-60.0 [facility] Comment on above: Performed By: #### C BC #### [facility] [address] [place] [address] Dr. Vipul Jean MANUAL DIFF REQ NO Normal [facility] Comment on above: Performed By: #### C BC #### [facility] [address] [place] [address] Dr. Vipul Jean MCH (RBC) [Entitic mass] 33.0 pg Normal 25.9-34.0 [facility] Comment on above: Performed By: #### C BC #### [facility] [address] [place] [address] Dr. Vipul Jean MCHC (RBC) [Mass/Vol] 35.7 g/dL Critically high 29.9-35.2 [facility] Comment on above: Performed By: #### C BC #### [facility] [address] [place] [address] Dr. Vipul Jean MCV (RBC) [Entitic vol] 92.5 fL Normal 80.0-94.0 [facility] Comment on above: Performed By: #### C BC #### [facility] [address] [place] [address] Dr. Vipul Jean MONO # 0.6 103/ul Normal 0.3-0.8 [facility] Comment on above: Performed By: #### C BC #### [facility] [address] [place] [address] Dr. Vipul Jean Monocytes/100 WBC (Bld) 7.0 % Normal 1.7-12.0 [facility] Comment on above: Performed By: #### C BC #### [facility] [address] [place] [address] Dr. Vipul Jean NEUT # 5.5 103/ul Normal 1.4-6.5 [facility] Comment on above: Performed By: #### C BC #### [facility] [address] [place] [address] Dr. Vipul Jean Neutrophils/100 WBC (Bld) 68.0 % Normal 43.0-75.0 [facility] Comment on above: Performed By: #### C BC #### [facility] [address] [place] [address] Dr. Vipul Jean Platelet mean volume (Bld) [Entitic vol] 11.0 fL Normal 9.5-13.5 [facility] Comment on above: Performed By: #### C BC #### [facility] [address] [place] [address] Dr. Vipul Jean PLT 101 103/ul Critically low 150-450 [facility] Comment on above: Performed By: #### C BC #### [facility] [address] [place] [address] Dr. Vipul Jean RBC 5.18 106/ul Normal 4.70-6.10 [facility] Comment on above: Performed By: #### C BC #### [facility] [address] [place] [address] Dr. Vipul Jean WBC 8.1 103/ul Normal 4.0-11.0 [facility] Comment on above: Performed By: #### C BC #### [facility] [address] [place] [address] Dr. Vipul Jean CRPon 02-14-2022 CRP [Mass/Vol] mg/L Normal <=1.0 [facility] Comment on above: Performed By: #### C RP, URIC #### [facility] [address] [place] [address] Dr. Vipul Jean URIC ACID SERUMon 02-14-2022 Urate [Mass/Vol] 4.4 mg/dL Normal 3.5-7.2 [facility] Comment on above: Performed By: #### C RP, URIC #### [facility] [address] [address] [address] Vipul Jean XR ANKLE LT MIN [...] by: NORY ALICIA Date: 2022-02-14 15:05 Normal [facility] CNOVSPon 06-15-2017 CNOVSP Visit (SP) Office ([facility]) Ko BARROSSIMI Floresita ([id number]) 1950 MDate Time Provider Department06/15/17 3:45 PM CAREY TREVIÑO During your visit today, we recorded the following information about you: Temperature Pulse Respiration Blood pressure 97 degrees 53/minute 18/minute 149/69 Weight Height 92.8 kg 1.676 Baldemar Treviño MD 06/15/2017 3:50 PM SignedMarienano Barros is a 67 year old male [...] kg (204 lb 9.6 oz) BMI 33.02 kg/t2Nherwfh Appearance: alert and oriented, appearing in no [...] ABS GRAN CT + CBC (FOR REMOTE C USE)2. S/P CABG x 5 - ICD9: V45.81, ICD10: Z95.1See above3. Undescended left testicle - ICD9: 752.51, ICD10: Q53.10See Cruz Treviño MDReferring Provider: AUDREY OSHEA [[id number]]Allergies As of Date: 06/15/2017(No Known Allergies)Date Reviewed: 06/15/2017Reviewed by: Liliane Molina - Fully AssessedReason for Visit: low platelets [Other] Cmt: new patient consultationPrimary Visit Diagnosis:Thrombocytopeni a (HCC) [D69.6] Other Visit Diagnoses: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 left testicle [Q53.10]Order(s):ABS GRAN CT + CBC (FOR REMOTE [facility] USE) [SQRAGCBC] Order #: [id number] FUTUREFollow-up and Disposition History RecordedPrescriptions as of [...] >> July Jesse 06/15/2017 3:27 PM >> EJSSE, JulyJun 15, 2017 3:27 PM Received from: External Pharmacy TRAZODONE 50 MG TABLET >> July Jesse 06/15/2017 3:27 PM >> JESSE JulyJun 15, 2017 3:27 PM Received from: External PharmacyProblem List As Of Date 06/15/2017 Noted Resolved Thrombocytopenia (HCC) [D69.6] INVALID FOR* S/P CABG x 5 [Z95.1] INVALID FOR* Undescended left testicle [Q53.10] INVALID FOR*Encounter Status:Closed by CAREY TREVIÑO MD on 06/15/17 Normal [facility] PROGRESSon 06-15-2017 PROGRESS HNO ID: [id number] thor: [place]: (none)Author Type: PhysicianType: Progress [...] kg (204 lb 9.6 oz) BMI 33.02 kg/n2Klvckii Appearance: alert and oriented, appearing in no [...] ABS GRAN CT + CBC (FOR REMOTE [facility] USE)2. S/P CABG x 5 - ICD9: V45.81, ICD10: Z95.1See above3. Undescended left testicle - ICD9: 752.51, ICD10: Q53.10See Cruz Treviño MD Normal [facility] Remote Abs Gran + CBC (for F use only)on 06-15-2017 Absol Gran Count 5.25 k/uL Normal 1.45-7.50 Fe [facility] Erythrocyte distribution width Auto Ratio (RBC) 12.4 % Normal 11.5-15.0 [facility] Erythrocytes (RBC) 4.87 10*6/uL Normal 4.20-6.00 [facility] Hematocrit (HCT) 45.5 % Normal 39.0-51.0 [facility] Hemoglobin mass conc (Bld) 15.7 g/dL Normal 13.0-17.0 [facility] MCH 32.2 pG Normal 26.0-34.0 [facility] MCHC mass conc (RBC) 34.5 g/dL Normal 30.5-36.0 [facility] MCV 93.4 fL Normal 80.0-100.0 [facility] Platelet mean volume (PMV) 10.8 fL Normal 9.0-12.7 [facility] [facility] Platelets 116 10*3/uL Low 150-400 [facility] WBC (Leukocytes) 7.93 10*3/uL Normal 3.70-11.00 [facility] Encounters Encounter Date Encounter Type Care Provider Facility Start: 06-28-2023 End: 06-28-2023 ambulatory TERRANCE HORTON Not Available Start: 06-16-2023 End: 07-17-2023 ambulatory [facility] Start: 06-02-2023 End: 06-02-2023 ambulatory [facility] Start: 05-25-2023 End: 06-16-2023 ambulatory [facility] Start: 05-23-2023 End: 05-28-2023 Emergency department patient visit [facility] Start: 04-24-2023 End: 04-24-2023 ambulatory TERRANCE HORTON Not Available Start: 03-02-2023 End: 03-02-2023 ambulatory KARINA PARKINSON Not Available Start: 01-23-2023 End: 01-23-[address] [facility] Start: 08-15-2022 End: 08-15-2022 ambulatory [facility] Start: 07-27-2022 End: 07-28-[address] TERRANCE HORTON Facility:[facility] Start: 05-01-2022 End: 05-01-[address] TERRANCE HORTON Facility:[facility] Start: 02-14-2022 End: 02-14-[address] TERRANCE HORTON Facility:[facility] Start: 06-15-2017 End: 06-16-2017 Ambulatory CAREY TREVIÑO [facility] Payers Date Payer Category Payer Medicare [id number] 1950 Unknown [id number] 2.16.84 [id number] 1950 Unknown [id number] 2.16.84 [id number] 1950 Unknown [id number] 2.16.84 [id number] 1950 Unknown [id number] 2.16.8 [id number] 1950 Unknown [id number] 2.16.84 [id number] 1950 Unknown [id number] 2.16.84 [id number] 1950 Unknown [id number] [id number] 1950 Unknown [id number] 2.16.8 [id number] 1950 Unknown [id number] 2.16.8 [id number] Progress note 06-02-2023 Note Date & Type Note Facility 06-02-2023 Note error [facility] Progress note 06-02-2023 Note Date & Type Note Facility 06-02-2023 Note [facility] No [facility] Chief Complaint: establish care HPI: James Barros is a 72 y.o. male with a past medical history including HTN, HLD, COPD, and CAD s/p CABG in 2010. 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 Patient presents today for [...] cessation. I emphasized (more content not included)... [facility] Progress note 01-23-2023 Note Date & Type Note Facility 01-23-2023 Note Cardiology Clinic No te Subjective James Barros is a 72 y.o. year old male patient with HTN, HLD, COPD, and CAD s/p CABG in 2010 seen in follow-up. 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 Coronary artery disease [...] of twice daily. (more content not included)... [facility] Progress note 01-23-2023 Note Date & Type [...] All other systems reviewed and are negative. [facility] Progress note 08-15-2022 Note Date & Type Note Facility 08-15-2022 Note Cardiology Clinic No te Chief Complaint: establish care HPI: James Barros is a 72 y.o. male with a past medical history including HTN, HLD, COPD, and CAD s/p CABG in 2010. 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 Patient adamantly denies any [...] or concerns. Kathy Paz MD [facility] Summary Purpose Family History No Family [...] section and content) DATE CREATED AUTHOR 10/06/2017 [facility] DATE CREATED AUTHOR AUTHOR'S ORGANIZ ATION 08/01/2022 [facility] DATE CREATED AUTHOR AUTHOR'S ORGANIZ ATION 05/29/2023 [facility] DATE CREATED AUTHOR AUTHOR'S ORGANIZ ATION 06/04/2023 [facility] DATE CREATED AUTHOR AUTHOR'S ORGANIZ ATION 06/29/2023 [facility] DATE CREATED AUTHOR AUTHOR'S ORGANIZ ATION 07/17/2023 [facility] FOR RECORDS PERTAINING TO PATIENTS [...] BE BASED ON THE PRIMARY CLINICAL RECORDS. [employer] provides no warranty or guarantee of the accuracy or completeness of information in this document.
--- NOTE | 2023-08-02 01:27 | ED_ITS ---
HPI - Dizziness General Chief Complaint: Dizziness Stated Complaint: weird feeling in head Time Seen by Provider: 08/02/23 01:22 Source: patient and family Mode of arrival: walk-in History of Present Illness HPI Narrative: patient brought to the ER by his because he feels dizzy and cold. No headache. but head feels funny. No chest pain or palpitations. daily smoker. Not short of breath. Admits dizziness has improved. No extremity weakness or numbness. Admits to past history of dizziness. States he had an episode 2 nights ago also Related Data Home Medications ?Medication ?Instructions ?Recorded ?Confirmed aspirin 81 mg tablet,delayed 81 mg PO DAILY 11/20/22 08/02/23 release (Adult Aspirin Regimen) metformin 500 mg tablet 1,000 mg PO BIDWM 11/20/22 08/02/23 rosuvastatin 20 mg tablet 20 mg PO DAILY 11/20/22 08/02/23 aripiprazole 5 mg tablet 5 mg PO .qhs 05/22/23 05/22/23 lisinopril 10 1 tab PO QDAY 05/22/23 08/02/23 mg-hydrochlorothiazide 12.5 mg tablet quetiapine 25 mg tablet 25 mg PO .QHS 08/02/23 08/02/23 sodium chloride 1,000 mg soluble 1,000 mg PO TID 08/02/23 08/02/23 tablet Previous Rx's ?Medication ?Instructions ?Recorded isosorbide mononitrate 30 mg 30 mg PO DAILY #30 tabs 05/24/23 tablet,extended release 24 hr Allergies Allergy/AdvReac Type Severity Reaction Status Date / Time No Known Drug Allergies Allergy Verified 11/20/22 10:09 Review of Systems ROS Status of ROS 10 or more systems reviewed and unremark able except as noted in history and below [facility] Medical History (Updated 08/02/23 @ 10:43 by Shaikh Herbert MD) Chronic vertigo ?R42 - Dizziness and giddiness (ICD-10) Dementia ?F03.90 - Unspecified dementia, unspecified severity, without behavioral disturbance, psychotic disturbance, mood disturbance, and anxiety (ICD-10) HLD (hyperlipidemia) ?E78.5 - Hyperlipidemia, unspecified (ICD-10) HTN (hypertension) ?I10 - Essential (primary) hypertension (ICD-10) Vertigo ?R42 - Dizziness and giddiness (ICD-10) Tremor ?R25.1 - Tremor, unspecified (ICD-10) CAD (coronary artery disease), [place] coronary artery ?I25.10 - Atherosclerotic heart disease of [place] coronary artery without angina pectoris (ICD-10) Chest pain ?R07.9 - Chest pain, unspecified (ICD-10) Visual hallucinations ?R44.1 - Visual hallucinations (ICD-10) Vision loss, bilateral ?H54.3 - Unqualified visual loss, both eyes (ICD-10) Surgical History (Updated 05/23/23 @ 15:16 by Tasneem Herrera RN) Hx of CABG ?Z95.1 - Presence of aortocoronary bypass graft (ICD-10) Social History (Updated 08/02/23 @ 04:37 by Trudy Choi) Within the past year, how often did you have a drink containing alcohol: never Score interpretation: A score less than 4 is consistent with normal alcohol consumption. Smoking status: Current every day smoker Nicotine containing products detail: 1 pack daily Non-prescribed substance use: denies use Highest level of school completed/degree received: Associate degree: academic program Are you now , , , , never or living with a partner: In a typical week, how many times do you talk on the telephone with family, friends, or neighbors: twice per week How often do you get together with friends or relatives: once per week Little interest or pleasure in doing things: not at all Feeling down, depressed, or hopeless: not at all Feel stressed/tense/nervous/anxious/difficulty sleeping: not at all Do you think of yourself as: straight/heterosexual Gender Identity: male Exam Constitutional Vital Signs, click to edit/add: Last Vital Signs Temp 97.9 F 08/02/23 19:41 Pulse 60 08/02/23 19:41 Resp 18 08/02/23 19:41 BP 98/60 08/02/23 19:41 Pulse Ox 96 08/02/23 19:41 O2 Del Method Room Air 08/02/23 19:41 Common normals: no apparent distress, average body habitus, no limitations, alert and well nourished HENMT Common normals: normocephalic and head/scalp atraumatic Tympanic membrane: TMs normal bilaterally Eye Common normals: PERRL, EOMs intact bilaterally and conjunctivae normal Respiratory Common normals: normal respiratory effort, no retractions, no use of accessory muscles and clear to auscultation bilaterally Cardio Common normals: regular rate, regular rhythm, S1 normal heart sound and S2 normal heart sound GI Common normals: Normal to inspection, nondistended, normoactive bowel sounds present, soft to palpation and non-tender Extremity Common normals: normal to inspection Neuro Common normals: CN's II-XII intact bilaterally, moves all extremities and no focal motor deficits Psych Appearance: grossly normal Course Vital Signs Vital signs: Vital Signs Temperature 98.6 F 08/02/23 00:54 Pulse Rate 59 L 08/02/23 00:54 Respiratory Rate 14 08/02/23 00:54 Blood Pressure 197/82 H 08/02/23 00:54 Pulse Oximetry 99 08/02/23 00:54 Oxygen Delivery Method Room Air 08/02/23 00:54 Temperature 97.9 F 08/02/23 19:41 Pulse Rate 60 08/02/23 19:41 Respiratory Rate 18 08/02/23 19:41 Blood Pressure 98/60 08/02/23 19:41 Pulse Oximetry 96 08/02/23 19:41 Oxygen Delivery Method Room Air 08/02/23 19:41 MDM - Dizziness MDM Narrative Medical decision making narrative: patient presents from home with symptoms of dizziness . states he also feels cold. PE unremarkable. CT brain without acute findings. labs with hyponatremia worse than past visits. Hyponatremia may be causing his neurologic symptoms. NS started at 125/hr. discussed with the hospitalist and patient accepted for admission Lab Data Labs: Lab Results 08/02/23 08/02/23 Range/Units 01:20 02:05 WBC 8.9 (4.0-11.0) 10^3/uL RBC 4.83 (4.70-6.10) 10^6/uL Hgb 15.8 (14.0-18.0) g/dL Hct 44.7 (42.0-54.0) % MCV 92.5 (80.0-94.0) fL MCH 32.7 (25.9-34.0) pg MCHC 35.3 H (29.9-35.2) g/dL RDW 11.6 (11.0-15.0) % Plt Count 148 L (150-450) 10^3/uL MPV 9.9 (9.5-13.5) fL Neut % (Auto) 66.9 (43.0-75.0) % Lymph % (Auto) 23.3 (20.5-60.0) % [place] % (Auto) 7.1 (1.7-12.0) % Eos % (Auto) 1.6 (0.9-7.0) % Baso % (Auto) 0.8 (0.2-2.0) % Neut # (Auto) 5.9 (1.4-6.5) 10^3/uL Lymph # (Auto) 2.1 (1.2-3.8) 10^3/uL [place] # (Auto) 0.6 (0.3-0.8) 10^3/uL Eos # (Auto) 0.1 (0.0-0.7) 10^3/uL Baso # (Auto) 0.1 (0.0-0.1) 10^3/uL Abs Immat Gran (auto) 0.03 (0.00-0.03) 10^3/uL Imm/Tot Granulo (auto) 0.3 (0.0-0.5) % Sodium 121 L* (136-145) mmol/L Potassium 4.3 (3.5-5.1) mmol/L Chloride 89 L (98-107) mmol/L Carbon Dioxide 21.3 (21.0-32.0) mmol/L Anion Gap 15.0 BUN 15.0 (7.0-18.0) mg/dL Creatinine 1.01 (0.70-1.30) mg/dL Est GFR ( Amer) >60 (>=60) Est GFR (Non-Af Amer) >60 (>=60) BUN/Creatinine Ratio 14.9 Glucose 167 H (74-106) mg/dL Calcium 10.7 H (8.5-10.1) mg/dL Troponin I High Sens 23.5 (4.0-76.1) pg/mL Urine Color Lt. yellow (YELLOW) Urine Clarity Clear (CLEAR) Urine pH 6.5 (5.0-9.0) Ur Specific [place] <=1.005 A (1.005-1.025) Urine Protein 30 A (NEG/TRACE) mg/dL Urine Glucose (UA) 100 A (NEGATIVE) mg/dL Urine Ketones Negative (NEGATIVE) mg/dL Urine Occult Blood Negative (NEGATIVE) Urine Nitrite Negative (NEGATIVE) Urine Bilirubin Negative (NEGATIVE) Urine Urobilinogen 0.2 (0.2-1.0) EU/dL Ur Leukocyte Esterase Negative (NEGATIVE) Urine RBC 0-2 (0-2) #/HPF Urine WBC None seen (NONE SEEN) #/HPF Ur Squamous Epith Cells Few A (NONE/RARE) #/LPF Urine Crystals None seen (None Seen) #/HPF Urine Bacteria None seen (NONE SEEN) #/HPF Urine Casts None seen (NONE SEEN) #/LPF Urine Mucus None seen (NONE SEEN) Ur Culture Indicated? No Imaging Data Chest x-ray: Radiologist's impression: ITS Impressions Head CT 08/02/23 01:30 Impression: 1. No acute intracranial abnormality. 2. Diffuse atrophy with proportionate ventriculomegaly. 3. Changes of probable chronic ischemic small vessel white matter disease. Electronically authenticated by: DOMENIC TOVAR Date: 08/02/2023 02:09 Discharge Plan Discharge Chief Complaint: Dizziness Clinical Impression: Acute hyponatremia Patient Disposition: Admitted As Inpatient Discharge Date/Time: 08/02/23 03:42
--- NOTE | 2023-08-02 01:30 | CT_ITS ---
The [address] [address] Patient Name: JAMES POPE MRN: [id number] date: 1950 Sex: M Assigned Patient Location: ER Current Patient Location: Accession/Order Number: [id number] Exam Date: 08/02/2023 01:40 Report Date: 08/02/2023 02:09 At the request of: LOUISE NESBITT Procedure: CT head/brain wo con Head CT 08/02/2023 12:[address] 08/02/2023 12:40 AM CDT History: dizziness. Comparison: 05/22/2023. Technique: Unenhanced CT imaging of the head. This CT exam was performed using one or more of the following dose reduction techniques: Automated exposure control, adjustment of the mA and/or KV according to patient size, or use of iterative reconstruction technique. Findings: There is no evidence of acute intracranial abnormality. Specifically, there is no evidence of acute hemorrhage, infarct, contusion, hydrocephalus, midline shift, or abnormal extra-axial collection. There is diffuse atrophy with proportionate ventriculomegaly. Low attenuation in the periventricular white matter is nonspecific but likely reflects changes of chronic ischemic small vessel white matter disease. The calvarium is intact. CT/CT head/brain wo con Impression: 1. No acute intracranial abnormality. 2. Diffuse atrophy with proportionate ventriculomegaly. 3. Changes of probable chronic ischemic small vessel white matter disease. Electronically authenticated by: DOMENIC TOVAR Date: 08/02/2023 02:09
[2023-08-02 01:39] LABS: Basophils Absolute Auto 0.1 10^3/uL (0.0-0.1); Basophils Percent Auto 0.8 % (0.2-2.0); Eosinophils Absolute Auto 0.1 10^3/uL (0.0-0.7); Eosinophils Percent Auto 1.6 % (0.9-7.0); Hematocrit 44.7 % (42.0-54.0); Hemoglobin 15.8 g/dL (14.0-18.0); Immature Granulocytes Abs Auto 0.03 10^3/uL (0.00-0.03); Immature Granulocytes Pct Auto 0.3 % (0.0-0.5); Lymphocytes Absolute Auto 2.1 10^3/uL (1.2-3.8); Lymphocytes Percent Auto 23.3 % (20.5-60.0); Mean Corpuscular HGB Conc 35.3 g/dL (29.9-35.2); Mean Corpuscular Hemoglobin 32.7 pg (25.9-34.0); Mean Corpuscular Volume 92.5 fL (80.0-94.0); Mean Platelet Volume 9.9 fL (9.5-13.5); Monocytes Absolute Auto 0.6 10^3/uL (0.3-0.8); Monocytes Percent Auto 7.1 % (1.7-12.0); Neutrophils Absolute Auto 5.9 10^3/uL (1.4-6.5); Neutrophils Percent Auto 66.9 % (43.0-75.0); Platelet Count 148 10^3/uL (150-450); Red Blood Count 4.83 10^6/uL (4.70-6.10); Red Cell Distribution Width 11.6 % (11.0-15.0); White Blood Count 8.9 10^3/uL (4.0-11.0)
[2023-08-02] MEDS: MECLIZINE HCL 12.5 MG TABLET 25 MG PO (01:57)
[2023-08-02 01:58] LABS: BUN Creatinine Ratio 14.9; Calcium 10.7 mg/dL (8.5-10.1); Carbon Dioxide 21.3 mmol/L (21.0-32.0); Chloride 89 mmol/L (98-107); Estimated GFR (African America >60 (>=60); Estimated GFR (Non-African Ame >60 (>=60); Glucose 167 mg/dL (74-106); Potassium 4.3 mmol/L (3.5-5.1); Troponin I High Sensitivity 23.5 pg/mL (4.0-76.1)
[2023-08-02 02:02] LABS: Sodium 121 mmol/L (136-145)
[2023-08-02 02:11] LABS: Bilirubin Urine NEGATIVE (NEGATIVE); Blood Urine NEGATIVE (NEGATIVE); Clarity Urine CLEAR (CLEAR); Color Urine LT. YELLOW (YELLOW); Glucose Urine UA 100 mg/dL (NEGATIVE); Ketones Urine NEGATIVE (NEGATIVE); Leukocyte Esterase Urine NEGATIVE (NEGATIVE); Nitrite Urine NEGATIVE (NEGATIVE); Protein Urine 30 mg/dL (NEG/TRACE); Specific Gravity Urine <=1.005 (1.005-1.025); Urobilinogen Urine 0.2 EU/dL (0.2-1.0); pH Urine 6.5 (5.0-9.0)
[2023-08-02 02:12] LABS: Urine Microscopic Indicated YES
[2023-08-02] MEDS: 0.9 % SODIUM CHLORIDE 1,000 ML 125 ML IV (02:14)
[2023-08-02 02:22] LABS: Bacteria Urine NONE SEEN #/HPF (NONE SEEN); Cast Seen? NONE SEEN #/LPF (NONE SEEN); Crystals Seen? None Seen #/HPF (None Seen); Mucus Urine NONE SEEN (NONE SEEN); RBC Urine 0-2 #/HPF (0-2); Squamous Epithelial Cell Urine FEW #/LPF (NONE/RARE); Urine Culture Indicated NO; WBC Urine NONE SEEN #/HPF (NONE SEEN)
--- OUTSIDE RECORDS SUMMARY | 2023-08-02 03:47 | XMS_ITS | CCD ---
Author Organization [facility] Care Team Providers Care Supervisor [employer] Name Role Phone CAREY TREVIÑO Unavailable Unavailable [...] source) bee venom Drug allergy (disorder) [facility] Repository (1 source) Iodine (And Iodine Containting Drugs) Drug allergy (disorder) [facility] Repository Problems Active Problems Problem Classification Problem Date Documented Da te Episodic/Chronic Chronic obstructive pulmonary disease and bronchiectasis (2 sources) Chronic obstructive pulmonary disease, unspecified; 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: [Chronic obstructive pulmonary disease, unspecified] Onset: 01-23-2023 Chronic Coagulation and hemorrhagic disorders (1 source) Thrombocytopenia, unspecified; 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: [Thrombocytopenia, unspecified] Onset: 06-15-2017 Chronic Coronary atherosclerosis and other heart disease (3 sources) Atherosclerotic heart disease of ute coronary artery without angina pectoris; 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: [Atherosclerotic heart disease of ute coronary artery with unspecified angina pectoris] Onset: [...] Onset: 05-03-2022 Chronic Other aftercare (1 source) [facility] (current) use of aspirin; 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: [PETAL SHAPER HAND CURRENT USE OF ASPIRIN] Onset: 05-03-2022 Episodic Other aftercare (1 source) Other watermaster (current) drug therapy; 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: [OTH LONG-TERM CURRENT DRUG THERAPY] Onset: 05-03-2022 Episodic Other aftercare (1 source) [facility] (current) use of oral hypoglycemic drugs; 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: [LONG-TERM USE ORAL HYPOGLYCEMIC DX] Onset: 05-03-2022 Episodic [...] Range Facility Office Visiton 06-02-2023 Follow-up visit [id number] James Barros 1950 M Date Provider Department Center 06/02/2023 KATHY FELICIANO Family History Problem Relation Age of Onset Heart attack Maternal Grandfather Family Status - Relation Status Age at Maternal Grandfather Level of Service:83829 UT OFFICE/OUTPATIENT ESTABLISHED MOD MDM 30 MIN Normal [facility] Office Visiton 01-23-2023 Follow-up visit [id number] James Barros Floresita 1950 M [facility] Provider Department Center 01/23/2023 [id number] PEREZ [facility] Family History Problem Relation Age of Onset Heart attack Maternal Grandfather Family Status - Relation Status Age at Maternal Grandfather Level of Service:98157 UT OFFICE/OUTPATIENT ESTABLISHED MOD MDM 30-39 MIN Normal [facility] Office Visiton 08-15-2022 Follow-up visit [id number] James Barros Floresita 1950 M Date Provider [facility] No family history on file Level of Service:87121 UT OFFICE/OUTPATIENT ESTABLISHED MOD MDM 30-39 MIN Reason for Visit and Comments: New Patient [632] Normal [facility] GLYCOHEMOGLOBIN A1Con 2022 ADA RECOMMENDATION SEE BELOW Normal [facility] Comment on above: Result Comment: ADA RECOMMENDED LIMIT 4.0 - 6.0 ADA THERAPEUTIC TARGET < 7.0 ACTION SUGGESTED > 7.0 Performed By: #### A 1C ####[address] Yilan Jean Glucose [Mass/Vol] 197 mg/dL Normal [facility] Comment on above: Performed By: #### A 1C ####[facility] [id number] [address]Dr. Vipul Jean HbA1c (Bld) [Mass fraction] 8.5 % Critically high 4.5-6.2 [facility] Comment on above: Performed By: #### A 1C ####[facility] [id number] [address]DrNoelle Jean AMYLASEon 05-01-2022 Amylase [Catalytic activity/Vol] 33 U/L Normal 25-115 [facility] Comment on above: Performed By: #### A MY, HSTROPN, LIPA, CMP #### [facility] [address] [place] [address] Dr. Vipul Jean CBC AUTO DIFFon 05-01-2022 BASO # 0.1 103/ul Normal 0.0-0.1 [facility] Comment on above: Performed By: #### C BC #### [facility] [address] [place] [address] Dr. Vipul Jean Basophils/100 WBC (Bld) 0.6 % Normal 0.2-2.0 [facility] Comment on above: Performed By: #### C BC #### [facility] [address] [place] [address] Dr. Vipul Jaen EO # 0.1 103/ul Normal 0.0-0.7 [facility] Comment on above: Performed By: #### C BC #### [facility] [address] [place] [address] Dr. Vipul Jean Eosinophils/100 WBC (Bld) 1.4 % Normal 0.9-7.0 [facility] Comment on above: Performed By: #### C BC #### [facility] [address] [place] [address] Dr. Vipul Jean Erythrocyte distribution width (RBC) [Ratio] 12.2 % Normal 11.0-15.0 [facility] Comment on above: Performed By: #### C BC #### [facility] [address] [place] [address] Dr. Vipul Jean Hematocrit (Bld) [Volume fraction] 46.0 % Normal 42.0-54.0 [facility] Comment on above: Performed By: #### C BC #### [facility] [address] [place] [address] Dr. Vipul Jean Hemoglobin (Bld) [Mass/Vol] 16.7 g/dL Normal 14.0-18.0 [facility] Comment on above: Performed By: #### C BC #### [facility] [address] [place] [address] Dr. Vipul Jean IG # 0.04 10e3/ul Critically high 0.00-0.03 [facility] Comment on above: Performed By: #### C BC #### [facility] [address] [place] [address] Dr. Vipul Jean IG % 0.4 % Normal 0.0-0.5 [facility] Comment on above: Performed By: #### C BC #### [facility] [address] [place] [address] Dr. Vipul Jean LYMPH # 1.7 103/ul Normal 1.2-3.8 [facility] Comment on above: Performed By: #### C BC #### [facility] [address] [place] [address] Dr. Vipul Jean Lymphocytes/100 WBC (Bld) 18.7 % Critically low 20.5-60.0 [facility] Comment on above: Performed By: #### C BC #### [facility] [address] [place] [address] Dr. Vipul Jean MANUAL DIFF REQ NO Normal [facility] Comment on above: Performed By: #### C BC #### [facility] [address] [place] [address] Dr. Vipul Jean MCH (RBC) [Entitic mass] 33.3 pg Normal 25.9-34.0 [facility] Comment on above: Performed By: #### C BC #### [facility] [address] [address] [address] Vipul Jean MCHC (RBC) [Mass/Vol] 36.3 g/dL Critically high 29.9-35.2 [facility] Comment on above: Performed By: #### C BC #### [facility] [address] [place] [address] Dr. Vipul Jean MCV (RBC) [Entitic vol] 91.6 fL Normal 80.0-94.0 [facility] Comment on above: Performed By: #### C BC #### [facility] [address] [place] [address] Dr. Vipul Jean MONO # 0.6 103/ul Normal 0.3-0.8 [facility] Comment on above: Performed By: #### C BC #### [facility] [address] [place] [address] Dr. Vipul Jean Monocytes/100 WBC (Bld) 6.9 % Normal 1.7-12.0 [facility] Comment on above: Performed By: #### C BC #### [facility] [address] [place] [address] Dr. Vipul Jean NEUT # 6.5 103/ul Normal 1.4-6.5 [facility] Comment on above: Performed By: #### C BC #### [facility] [address] [place] [address] Dr. Vipul Jean Neutrophils/100 WBC (Bld) 72.0 % Normal 43.0-75.0 [facility] Comment on above: Performed By: #### C BC #### [facility] [address] [place] [address] Dr. Vipul Jean Platelet mean volume (Bld) [Entitic vol] 10.5 fL Normal 9.5-13.5 [facility] Comment on above: Performed By: #### C BC #### [facility] [address] [place] [address] Dr. Vipul Jean PLT 125 103/ul Critically low 150-450 [facility] Comment on above: Performed By: #### C BC #### [facility] [address] [place] [address] Dr. Vipul Jean RBC 5.02 106/ul Normal 4.70-6.10 [facility] Comment on above: Performed By: #### C BC #### [facility] [address] [address] [address] Vipul Jean WBC 9.0 103/ul Normal 4.0-11.0 [facility] Comment on above: Performed By: #### C BC #### [facility] [address] ABD/PELVIS WO CONon [...] HOME MARX Date: 2022-05-01 15:31 Normal [facility] LIPASEon 05-01-2022 Lipase [Catalytic activity/Vol] 62.0 U/L Critically low 73.0-393.0 [facility] Comment on above: Performed By: #### A MY, HSTROPN, LIPA, CMP #### [facility] [address] [address] [address] Vipul Jean PROF 14(COMP METB)on 023 Albumin [Mass/Vol] 3.4 g/dL Normal 3.4-5.0 [facility] Comment on above: Performed By: #### A MY, HSTROPN, LIPA, CMP #### [facility] [address] [place] [address] Dr. Vipul Jean Albumin/Globulin [Mass ratio] 1.1 {ratio} Normal [facility] Comment on above: Performed By: #### A MY, HSTROPN, LIPA, CMP #### [facility] [address] [place] [address] Dr. Vipul Jean ALP [Catalytic activity/Vol] 93 U/L Normal 46-116 [facility] Comment on above: Performed By: #### A MY, HSTROPN, LIPA, CMP #### [facility] [address] [place] [address] Dr. Vipul Jean ALT [Catalytic activity/Vol] 38 U/L Normal 16-63 [facility] Comment on above: Performed By: #### A NICHOL, HSTROPN, LIPA, CMP #### [facility] [address] [place] [address] Dr. Vipul Jean Anion gap [Moles/Vol] 10.6 mmol/L Normal [facility] Comment on above: Performed By: #### A NICHOL, HSTROPN, LIPA, CMP #### [facility] [address] [place] [address] Dr. Vipul Jean AST [Catalytic activity/Vol] 29 U/L Normal 15-37 [facility] Comment on above: Performed By: #### A NICHOL, HSTROPN, LIPA, CMP #### [facility] [address] [place] [address] Dr. Vipul Jean Bilirubin [Mass/Vol] 0.6 mg/dL Normal 0.2-1.0 [facility] Comment on above: Performed By: #### A MY, HSTROPN, LIPA, CMP #### [facility] [address] [place] [address] Dr. Vipul Jean Calcium [Mass/Vol] 10.0 mg/dL Normal 8.5-10.1 [facility] Comment on above: Performed By: #### A MY, HSTROPN, LIPA, CMP #### [facility] [address] [place] [address] Dr. Vipul Jean Chloride [Moles/Vol] 105 mmol/L Normal 98-107 [facility] Comment on above: Performed By: #### A MY, HSTROPN, LIPA, CMP #### [facility] [address] [place] [address] Dr. Vipul Jean CO2 [Moles/Vol] 24.6 mmol/L Normal 21.0-32.0 [facility] Comment on above: Performed By: #### A MY, HSTROPN, LIPA, CMP #### [facility] [address] [place] [address] Dr. Vipul Jean Creatinine [Mass/Vol] 1.08 mg/dL Normal 0.70-1.30 [facility] Comment on above: Performed By: #### A MY, HSTROPN, LIPA, CMP #### [facility] [address] [place] [address] Dr. Vipul Jean EGFR-AF COMORAN >60 Normal >=60 [facility] Comment on above: Performed By: #### A MY, HSTROPN, LIPA, CMP #### [facility] [address] [place] [address] Dr. Vipul Jean EGFR-NON AF COMORAN >60 Normal >=60 [facility] Comment on above: Performed By: #### A MY, HSTROPN, LIPA, CMP #### [facility] [address] [place] [address] Dr. Vipul Jean Globulin (S) [Mass/Vol] 3.2 g/dL Normal [facility] Comment on above: Performed By: #### A MY, HSTROPN, LIPA, CMP #### [facility] [address] [place] [address] Dr. Vipul Jean Glucose [Mass/Vol] 215 mg/dL Critically high 74-106 [facility] Comment on above: Performed By: #### A MY, HSTROPN, LIPA, CMP #### [facility] [address] [address] [address] Vipul Jean Potassium [Moles/Vol] 4.2 mmol/L Normal 3.5-5.1 [facility] Comment on above: Performed By: #### A MY, HSTROPN, LIPA, CMP #### [facility] [address] [address] [address] Vipul Jean Protein [Mass/Vol] 6.6 g/dL Normal 6.4-8.2 [facility] Comment on above: Performed By: #### A MY, HSTROPN, LIPA, CMP #### [facility] [address] [address] [address] Vipul Jean Sodium [Moles/Vol] 136 mmol/L Normal 136-145 [facility] Comment on above: Performed By: #### A MY, HSTROPN, LIPA, CMP #### [facility] [address] [place] [address] Dr. Vipul Jean Urea nitrogen [Mass/Vol] 16.0 mg/dL Normal 7.0-18.0 [facility] Comment on above: Performed By: #### A MY, HSTROPN, LIPA, CMP #### [facility] [address] [place] [address] Dr. Vipul Jean Urea nitrogen/Creatinine [Mass ratio] 14.8 mg/mg Normal [facility] Comment on above: Performed By: #### A MY, HSTROPN, LIPA, CMP #### [facility] [address] [address] [address] Vipul Jean TROPONIN, HIGH SENSITIVITYon 05-01-2022 HSTROP 21.4 pg/mL Normal 4.0-76.1 [facility] Comment on above: Result Comment: CUT- OFF POINTS HAVE BEEN ESTABLISHED BASED ON THE FOURTH UNIVERSAL DEFINITIONS OF MYOCARDIAL INFARCTION. THE UPPER REFERENCE LIMIT (URL) OF TROPONIN, DEFINED THE 99TH PERCENTILE OF cTnI DISTRIBUTION IN A REFERENCE POPULATION, HAS BEEN CONFIRMED THE DECISION THRESHOLD FOR HI DIAGNOSIS. Performed By: #### A MY, HSTROPN, LIPA, CMP #### [facility] [address] [place] [address] Dr. Vipul Jean CBC AUTO DIFFon 02-14-2022 BASO # 0.1 103/ul Normal 0.0-0.1 [facility] Comment on above: Performed By: #### C BC #### [facility] [address] [place] [address] Dr. Vipul Jean Basophils/100 WBC (Bld) 0.6 % Normal 0.2-2.0 [facility] Comment on above: Performed By: #### C BC #### [facility] [address] [place] [address] Dr. Vipul Jean EO # 0.1 103/ul Normal 0.0-0.7 [facility] Comment on above: Performed By: #### C BC #### [facility] [address] [place] [address] Dr. Vipul Jean Eosinophils/100 WBC (Bld) 1.6 % Normal 0.9-7.0 [facility] Comment on above: Performed By: #### C BC #### [facility] [address] [place] [address] Dr. Vipul Jean Erythrocyte distribution width (RBC) [Ratio] 12.1 % Normal 11.0-15.0 [facility] Comment on above: Performed By: #### C BC #### [facility] [address] [place] [address] Dr. Vipul Jean Hematocrit (Bld) [Volume fraction] 47.9 % Normal 42.0-54.0 [facility] Comment on above: Performed By: #### C BC #### [facility] [address] [place] [address] Dr. Vipul Jean Hemoglobin (Bld) [Mass/Vol] 17.1 g/dL Normal 14.0-18.0 [facility] Comment on above: Performed By: #### C BC #### [facility] [address] [place] [address] Dr. Vipul Jean IG # 0.03 10e3/ul Normal 0.00-0.03 [facility] Comment on above: Performed By: #### C BC #### [facility] [address] [place] [address] Dr. Vipul Jean IG % 0.4 % Normal 0.0-0.5 [facility] Comment on above: Performed By: #### C BC #### [facility] [address] [place] [address] Dr. Vipul Jean LYMPH # 1.8 103/ul Normal 1.2-3.8 [facility] Comment on above: Performed By: #### C BC #### [facility] [address] [place] [address] Dr. Vipul Jean Lymphocytes/100 WBC (Bld) 22.4 % Normal 20.5-60.0 [facility] Comment on above: Performed By: #### C BC #### [facility] [address] [place] [address] Dr. Vipul Jean MANUAL DIFF REQ NO Normal [facility] Comment on above: Performed By: #### C BC #### [facility] [address] [place] [address] Dr. Vipul Jean MCH (RBC) [Entitic mass] 33.0 pg Normal 25.9-34.0 [facility] Comment on above: Performed By: #### C BC #### [facility] [address] [place] [address] Dr. Vipul Jean MCHC (RBC) [Mass/Vol] 35.7 g/dL Critically high 29.9-35.2 [facility] Comment on above: Performed By: #### C BC #### [facility] [address] [place] [address] Dr. Vipul Jean MCV (RBC) [Entitic vol] 92.5 fL Normal 80.0-94.0 [facility] Comment on above: Performed By: #### C BC #### [facility] [address] [place] [address] Dr. Vipul Jean MONO # 0.6 103/ul Normal 0.3-0.8 [facility] Comment on above: Performed By: #### C BC #### [facility] [address] [place] [address] Dr. Vipul Jean Monocytes/100 WBC (Bld) 7.0 % Normal 1.7-12.0 [facility] Comment on above: Performed By: #### C BC #### [facility] [address] [place] [address] Dr. Vipul Jean NEUT # 5.5 103/ul Normal 1.4-6.5 [facility] Comment on above: Performed By: #### C BC #### [facility] [address] [place] [address] Dr. Vipul Jean Neutrophils/100 WBC (Bld) 68.0 % Normal 43.0-75.0 [facility] Comment on above: Performed By: #### C BC #### [facility] [address] [place] [address] Dr. Vipul Jean Platelet mean volume (Bld) [Entitic vol] 11.0 fL Normal 9.5-13.5 [facility] Comment on above: Performed By: #### C BC #### [facility] [address] [place] [address] Dr. Vipul Jean PLT 101 103/ul Critically low 150-450 [facility] Comment on above: Performed By: #### C BC #### [facility] [address] [place] [address] Dr. Vipul Jean RBC 5.18 106/ul Normal 4.70-6.10 [facility] Comment on above: Performed By: #### C BC #### [facility] [address] [place] [address] Dr. Vipul Jean WBC 8.1 103/ul Normal 4.0-11.0 [facility] Comment on above: Performed By: #### C BC #### [facility] [address] [place] [address] Dr. Vipul Jean CRPon 02-14-2022 CRP [Mass/Vol] mg/L Normal <=1.0 [facility] Comment on above: Performed By: #### C RP, URIC #### [facility] [address] [place] [address] Dr. Vipul Jean URIC ACID SERUMon 02-14-2022 Urate [Mass/Vol] 4.4 mg/dL Normal 3.5-7.2 [facility] Comment on above: Performed By: #### C RP, URIC #### [facility] [address] [address] [address] Vipul Jean XR ANKLE LT MIN [...] by: NORY ALICIA Date: 2022-02-14 15:05 Normal [facility] CNOVSPon 06-15-2017 CNOVSP Visit (SP) Office ([facility]) Ko BARROSSIMI Floresita ([id number]) 1950 MDate Time Provider Department06/15/17 3:45 PM [...] kg (204 lb 9.6 oz) BMI 33.02 kg/k6Fnlalbu Appearance: alert and oriented, appearing in no [...] Q53.10See Cruz Treviño MDReferring Provider: AUDREY OSHEA [[id number]]Allergies As of Date: 06/15/2017(No Known Allergies)Date Reviewed: 06/15/2017Reviewed by: Liliane Molina - Fully AssessedReason for Visit: low platelets [Other] Cmt: new patient consultationPrimary Visit Diagnosis:Thrombocytopeni a (HCC) [D69.6] Other Visit Diagnoses: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 left testicle [Q53.10]Order(s):ABS GRAN CT + CBC (FOR REMOTE [facility] USE) [SQRAGCBC] Order #: [id number] FUTUREFollow-up and Disposition History RecordedPrescriptions as of [...] >> July Jesse 06/15/2017 3:27 PM >> JESSE, JulyJun 15, 2017 3:27 PM Received from: External Pharmacy TRAZODONE 50 MG TABLET >> July Jesse 06/15/2017 3:27 PM >> JESSE JulyJun 15, 2017 3:27 PM Received from: External PharmacyProblem List As Of Date 06/15/2017 Noted Resolved Thrombocytopenia (HCC) [D69.6] INVALID FOR* S/P CABG x 5 [Z95.1] INVALID FOR* Undescended left testicle [Q53.10] INVALID FOR*Encounter Status:Closed by CAREY TREVIÑO MD on 06/15/17 Normal [facility] PROGRESSon 06-15-2017 PROGRESS HNO ID: [id number] thor: [place]: (none)Author Type: PhysicianType: Progress [...] kg (204 lb 9.6 oz) BMI 33.02 kg/n3Sqenucg Appearance: alert and oriented, appearing in no [...] ABS GRAN CT + CBC (FOR REMOTE [facility] USE)2. S/P CABG x 5 - ICD9: V45.81, ICD10: Z95.1See above3. Undescended left testicle - ICD9: 752.51, ICD10: Q53.10See Cruz Treviño MD Normal [facility] Remote Abs Gran + CBC (for F use only)on 06-15-2017 Absol Gran Count 5.25 k/uL Normal 1.45-7.50 [facility] Erythrocyte distribution width Auto Ratio (RBC) 12.4 % Normal 11.5-15.0 [facility] Erythrocytes (RBC) 4.87 10*6/uL Normal 4.20-6.00 [facility] Hematocrit (HCT) 45.5 % Normal 39.0-51.0 [facility] Hemoglobin mass conc (Bld) 15.7 g/dL Normal 13.0-17.0 [facility] MCH 32.2 pG Normal 26.0-34.0 [facility] MCHC mass conc (RBC) 34.5 g/dL Normal 30.5-36.0 [facility] MCV 93.4 fL Normal 80.0-100.0 [facility] Platelet mean volume (PMV) 10.8 fL Normal 9.0-12.7 [facility] Platelets 116 10*3/uL Low 150-400 [facility] WBC (Leukocytes) 7.93 10*3/uL Normal 3.70-11.00 [facility] Encounters Encounter Date Encounter Type Care Provider Facility Start: 06-28-2023 End: 06-28-2023 ambulatory TERRANCE HORTON Not Available Start: 06-16-2023 End: 07-17-2023 ambulatory [facility] [employer] [facility] Start: 06-02-2023 End: 06-02-2023 ambulatory [facility] Start: 05-25-2023 End: 06-16-2023 ambulatory [facility] Start: 05-23-2023 End: 05-28-2023 Emergency department patient visit [facility] Start: 04-24-2023 End: 04-24-2023 ambulatory TERRANCE HORTON Not Available Start: 03-02-2023 End: 03-02-2023 ambulatory KARINA PARKINSON Not Available Start: 01-23-2023 End: 01-23-2023 ambulatory [facility] Start: 08-15-2022 End: 08-15-2022 ambulatory [facility] Start: 07-27-2022 End: 07-28-[address] TERRANCE HORTON Facility:[facility] Start: 05-01-2022 End: 05-01-[address] TERRANCE HORTON Facility:[facility] Start: 02-14-2022 End: 02-14-[address] TERRANCE HORTON Facility:[facility] Start: 06-15-2017 End: 06-16-2017 Ambulatory CAREY TREVIÑO [facility] Payers Date Payer Category Payer Medicare [id number] 1950 Unknown [id number] 2.16.84 [id number] 1950 Unknown [id number] 2.16.84 [id number] 1950 Unknown [id number] 2.16.84 [id number] 1950 Unknown [id number] 2.16.8 [id number] 1950 Unknown [id number] 2.16.84 [id number] 1950 Unknown [id number] 2.16.84 [id number] 1950 Unknown [id number] 1950 Unknown [id number] 1950 Unknown [id number] Progress note 06-02-2023 Note Date & Type Note Facility 06-02-2023 Note error [facility] Progress note 06-02-2023 Note Date & Type Note Facility 06-02-2023 Note [facility]iology [facility] No te Chief Complaint: establish care HPI: James Barros is a 72 y.o. male with a past medical history including HTN, HLD, COPD, and CAD s/p CABG in 2010. He was referred to Cardiology clinic to establish care because his previous statistical modeler (Dr. 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 Patient presents today for [...] cessation. I emphasized (more content not included)... [facility] Progress note 01-23-2023 Note Date & Type Note Facility 01-23-2023 Note Cardiology Clinic No te Subjective James Barros is a 72 y.o. year old male patient with HTN, HLD, COPD, and CAD s/p CABG in 2010 seen in follow-up. Patient Active Problem List Diagnosis S/P CABG x 5 Thrombocytopenia (CMS/HCC) Type 2 diabetes mellitus without complication, without long-term current use of insulin ([facility]) Undescended left testicle Family History Problem [...] clinic to establish care because his previous statistical modeler (Dr. 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 Coronary artery disease -Multivessel [...] of twice daily. (more content not included)... [facility] Progress note 01-23-2023 Note Date & [...] All other systems reviewed and are negative. [facility] Progress note 08-15-2022 Note Date & Type Note Facility 08-15-2022 Note Cardiology Clinic No te Chief Complaint: establish care HPI: James Barros is a 72 y.o. male with a past medical history including HTN, HLD, COPD, and CAD s/p CABG in 2010. He is referred to Cardiology clinic to establish care because his previous statistical modeler (Dr. 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 Patient adamantly denies any [...] Interventional Cardiology [facility] Summary Purpose Family History No Family History [...] section and content) DATE CREATED AUTHOR 10/06/2017 [facility] DATE CREATED AUTHOR AUTHOR'S ORGANIZ ATION 08/01/2022 [facility] DATE CREATED AUTHOR AUTHOR'S ORGANIZ ATION 05/29/2023 [facility] DATE CREATED AUTHOR AUTHOR'S ORGANIZ ATION 06/04/2023 [facility] DATE CREATED AUTHOR AUTHOR'S ORGANIZ ATION 06/29/2023 [facility] DATE CREATED AUTHOR AUTHOR'S ORGANIZ ATION 07/17/2023 [facility] FOR RECORDS PERTAINING TO PATIENTS [...] BE BASED ON THE PRIMARY CLINICAL RECORDS. [employer] provides no warranty or guarantee of the accuracy or completeness of information in this document.
[2023-08-02 06:24] LABS: Anion Gap 15.7; BUN Creatinine Ratio 14.3; Carbon Dioxide 20.9 mmol/L (21.0-32.0); Chloride 93 mmol/L (98-107); Estimated GFR (African America >60 (>=60); Estimated GFR (Non-African Ame >60 (>=60); Glucose 123 mg/dL (74-106); Potassium 3.6 mmol/L (3.5-5.1); Sodium 126 mmol/L (136-145)
[2023-08-02 07:30] LABS: Glucometer 117 mg/dL (74-106)
[2023-08-02 07:48] LABS: TSH W/ REFLEX FT4 1.204 uIU/mL (0.358-3.740)
--- NOTE | 2023-08-02 10:27 | CM.NOTE ---
Rounds made with Dr. Godinez, sodium remains low today. Continue IV fluids, no discharge today.
--- NOTE | 2023-08-02 10:29 | PM.HP ---
HPI H&P: HPI History of Present Illness Chief complaint: weird feeling in head Narrative: 73 y o male was brought over to ED for generalized weakness, malaise and lightheadedness. He lives at home with his . He is poor historian and I could get only very limited information from him. He reports feeling cold and chills over past few days along with feeling tired and with no energy for around the same time period. Patient also reports vertigo and on review of his chart, it seems like this is ongoing and chronic with periods of worsening symptoms. He denies CP, SOB, Nausea, vomiting, abdominal pain, GI or symptoms. He reports good PO intake. He has prior hx of hyponatremia and is on salt tablets. Interestingly enough he seems to be on HCTZ also for his hypertension. His work up in ED revealed severe hyponatremia - 121. He was admitted for generalized weakness, vertigo and severe hyponatremia. Patient was started on IVF NS with improvement in his serum sodium. BP is borderline low and patients appears dehydrated. He also has hx of dementia that has been progressing and associated with behavioral symptoms for which he is on Seroquel. Opioid HPI Opioid Management Most Recent Opioid Data: Last Pain Scale 0 05/24/23 11:40 Last Pain Intensity 0 05/24/23 11:40 Last Pain Assessment 08/02/23 10:00 Last ORT Total Score 1 08/02/23 03:57 Last ORT Risk Category Low Risk 08/02/23 03:57 Review of Systems ROS Status of ROS 10 or more systems reviewed and unremarkable except as noted in history and below [facility] Medical History (Updated 08/02/23 @ 10:43 by Shaikh Herbert MD) Chronic vertigo ?R42 - Dizziness and giddiness (ICD-10) Dementia ?F03.90 - Unspecified dementia, unspecified severity, without behavioral disturbance, psychotic disturbance, mood disturbance, and anxiety (ICD-10) HLD (hyperlipidemia) ?E78.5 - Hyperlipidemia, unspecified (ICD-10) HTN (hypertension) ?I10 - Essential (primary) hypertension (ICD-10) Vertigo ?R42 - Dizziness and giddiness (ICD-10) Tremor ?R25.1 - Tremor, unspecified (ICD-10) CAD (coronary artery disease), [place] coronary artery ?I25.10 - Atherosclerotic heart disease of [place] coronary artery without angina pectoris (ICD-10) Chest pain ?R07.9 - Chest pain, unspecified (ICD-10) Visual hallucinations ?R44.1 - Visual hallucinations (ICD-10) Vision loss, bilateral ?H54.3 - Unqualified visual loss, both eyes (ICD-10) Surgical History (Updated 05/23/23 @ 15:16 by Tasneem Herrera RN) Hx of CABG ?Z95.1 - Presence of aortocoronary bypass graft (ICD-10) Social History (Updated 08/02/23 @ 04:37 by Trudy Choi) Within the past year, how often did you have a drink containing alcohol: never Score interpretation: A score less than 4 is consistent with normal alcohol consumption. Smoking status: Current every day smoker Nicotine containing products detail: 1 pack daily Non-prescribed substance use: denies use Highest level of school completed/degree received: Associate degree: academic program Are you now , , , , never or living with a partner: In a typical week, how many times do you talk on the telephone with family, friends, or neighbors: twice per week How often do you get together with friends or relatives: once per week Little interest or pleasure in doing things: not at all Feeling down, depressed, or hopeless: not at all Feel stressed/tense/nervous/anxious/difficulty sleeping: not at all Do you think of yourself as: straight/heterosexual Gender Identity: male Meds Home Medications and Allergies Home Medications ?Medication ?Instructions ?Recorded ?Confirmed ?Type aspirin 81 mg tablet,delayed 81 mg PO DAILY 11/20/22 08/02/23 History release (Adult Aspirin Regimen) metformin 500 mg tablet 1,000 mg PO BIDWM 11/20/22 08/02/23 History rosuvastatin 20 mg tablet 20 mg PO DAILY 11/20/22 08/02/23 History aripiprazole 5 mg tablet 5 mg PO .qhs 05/22/23 05/22/23 History lisinopril 10 1 tab PO QDAY 05/22/23 08/02/23 History mg-hydrochlorothiazide 12.5 mg tablet isosorbide mononitrate 30 mg 30 mg PO DAILY #30 tabs 05/24/23 08/02/23 Rx tablet,extended release 24 hr quetiapine 25 mg tablet 25 mg PO .QHS 08/02/23 08/02/23 History sodium chloride 1,000 mg soluble 1,000 mg PO TID 08/02/23 08/02/23 History tablet Allergies Allergy/AdvReac Type Severity Reaction Status Date / Time No Known Drug Allergies Allergy Verified 11/20/22 10:09 Exam Constitutional Vital Signs, click to edit/add: Last Vital Signs Temp 98.4 F 08/02/23 04:00 Pulse 80 08/02/23 09:00 Resp 17 08/02/23 08:00 BP 83/45 L 08/02/23 07:25 Pulse Ox 98 08/02/23 07:25 O2 Del Method Room Air 08/02/23 04:00 Documenting provider has reviewed patient's vital signs: yes Common normals: no apparent distress General appearance: comfortable, ill appearing and frail appearing HENNV Common normals: normocephalic and head/scalp atraumatic Respiratory Common normals: normal respiratory effort, no use of accessory muscles and clear to auscultation bilaterally Effort & inspection: able to speak in complete sentences Cardio Common normals: regular rate, regular rhythm, S1 normal heart sound and S2 normal heart sound GI Common normals: Normal to inspection, nondistended, normoactive bowel sounds present, soft to palpation, non-tender and no hepatosplenomegaly Extremity Common normals: normal to inspection and full ROM Neuro Common normals: oriented x3, moves all extremities, no focal motor deficits and no sensory deficits noted Speech: speech normal Psych Common normals: cooperative, denies homicidal ideation and denies suicidal ideation Results Labs Labs: Short CBC 08/02/23 Range/Units 01:20 WBC 8.9 (4.0-11.0) 10^3/uL Hgb 15.8 (14.0-18.0) g/dL Hct 44.7 (42.0-54.0) % Plt Count 148 L (150-450) 10^3/uL BMP 08/02/23 08/02/23 01:20 06:08 Sodium 121 L* 126 L Potassium 4.3 3.6 Chloride 89 L 93 L Carbon Dioxide 21.3 20.9 L BUN 15.0 13.0 Creatinine 1.01 0.91 Glucose 167 H 123 H Calcium 10.7 H 10.0 Urine 08/02/23 Range/Units 02:05 Urine Color Lt. yellow (YELLOW) Urine Clarity Clear (CLEAR) Urine pH 6.5 (5.0-9.0) Ur Specific [place] <=1.005 A (1.005-1.025) Urine Protein 30 A (NEG/TRACE) mg/dL Urine Glucose (UA) 100 A (NEGATIVE) mg/dL Assessment and Plan Assessment and Plan (1) Acute hyponatremia: Assessment and Plan: Severe hyponatremia likely due to HCTZ, Hypovolemia. IVF NS decreased to 75/hr Monitor Serum sodium closely q4 - ensure gradual correction of no over than 12 meq/24 hour. Check urine sodium/urine osm and creatinine Has subtle neurological symptoms - experiencing fatigue, weakness and malaise. Monitor closely. Neuro checks q4. (2) Generalized weakness: Assessment and Plan: Likely due to dehydration, hyponatremia. PT/OT eval. On IVF for hyponatremia. (3) Chronic vertigo: Assessment and Plan: Meclizine as needed. CTH - no evidence of stroke. Has chronic microvascular changes. (4) HTN (hypertension): Assessment and Plan: On ACEI, HCTZ and Imdur Hold all BP meds. BP is borderline low likely from dehydration. On IVF. Monitor closely. Qualifiers: Hypertension type: primary hypertension Qualified Code(s): I10 - Essential (primary) hypertension (5) Dementia: Assessment and Plan: On Seroquel. Not on any medications for dementia. Defer to outpatient. Qualifiers: Dementia type: Alzheimer's Alzheimer's disease onset: late onset Dementia severity: moderate Dementia behavioral or psychological symptom: with psychotic disturbance Qualified Code(s): G30.1 - Alzheimer's disease with late onset; F02.B2 - Dementia in other diseases classified elsewhere, moderate, with psychotic disturbance (6) CAD (coronary artery disease), [place] coronary artery: Assessment and Plan: On ASA, statin. C/w same. Stable. Qualifiers: [place] vs. transplanted heart: [place] heart Associated angina: without angina Qualified Code(s): I25.10 - Atherosclerotic heart disease of [place] coronary artery without angina pectoris (7) HLD (hyperlipidemia): Assessment and Plan: C/w statin Qualifiers: Hyperlipidemia type: unspecified Qualified Code(s): E78.5 - Hyperlipidemia, unspecified Plan Patient will require inpatient status due to his current illness. He has severe hyponatremia and subtle neurological symptoms associated with hyponatremia. He will need gradual correction of his serum sodium and close monitoring of his neurological status, serum sodium and anticipated to require 2 MN in the hospital for his current illness.
--- NOTE | 2023-08-02 10:30 | XR_ITS ---
[address] [address] Patient Name: JAMES POPE MRN: [id number] date: 1950 Sex: M Assigned Patient Location: ICU Current Patient Location: ICU Accession/Order Number: [id number] Exam Date: 08/02/2023 10:38 Report Date: 08/02/2023 12:12 At the request of: SHAIKH MARIN Procedure: XR chest 1V EXAM: XR chest 1V HISTORY: SOB COMPARISON: 05/22/2023 TECHNIQUE: AP portable] FINDINGS: LUNGS: No significant pulmonary parenchymal abnormalities. VASCULATURE: No increased pulmonary vasculature. PLEURA: No pneumothorax, effusion, or pleural thickening. CARDIAC: No cardiomegaly or cardiac silhouette abnormality. MEDIASTINUM: No visible mass or adenopathy. Median sternotomy wires BONES: No fracture or visible bone lesion. OTHER: Negative. XR/XR chest 1V IMPRESSION: No acute disease. Electronically authenticated by: PINA GOMEZ Date: 08/02/2023 12:12
[2023-08-02] MEDS: 0.9 % SODIUM CHLORIDE 1,000 ML 75 ML IV (10:35)
[2023-08-02] MEDS: ASPIRIN 81 MG TABLET.DR PO (10:35)
[2023-08-02 11:09] LABS: Anion Gap 14.1; Calcium 10.3 mg/dL (8.5-10.1); Chloride 94 mmol/L (98-107); Estimated GFR (African America >60 (>=60); Estimated GFR (Non-African Ame >60 (>=60); Glucose 113 mg/dL (74-106); Potassium 4.1 mmol/L (3.5-5.1); Sodium 127 mmol/L (136-145)
--- NOTE | 2023-08-02 12:10 | SWNOTE1 ---
LUPE called pt's to discuss dc needs as pt is not best historian due to dementia. Pt's voiced he is not going to outpt therapy anymore as the insurance was not paying and they could not afford it. She did get him a rollator for at home and makes him get up and walk. She wanted to the rollator so if he feels dizzy he can sit down. LUPE advised her that therapy does recommend home health and pt would benefit from this. She voiced she is not sure about this. LUPE also let her know we can have a nurse come with the home health maybe once a week for a short time to monitor as well. LUPE assured her that pt's insurance will pay for this for a certain number of visits. Pt's will think about this and let SW know. She voiced concerns about finances and medical bills and that she sent 2 letters to the [facility] to see if they can assist with outstanding bills, but has not heard back. Pt's is coming in tomorrow and SW can have patient financial assistance come speak with her. She also voiced she is not in the best of health herself. Pt's stated right now her mind is busy thinking about everything and she can't make a decision on home health right now. SW to meet with pt's tomorrow to discuss further discharge plans. Pt's is coming in today, but can't stay long. 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 They have good support from there orthodoxy, but no other family support.
[2023-08-02 12:12] LABS: Glucometer 185 mg/dL (74-106)
--- NOTE | 2023-08-02 12:26 | SWNOTE1 ---
Important Message from Medicare reviewed and discussed with patient's over the phone. Pt's verbalized understanding and SW signed the form after reviewing with . Original placed in pt's room and copy placed in patient?s chart.
--- NOTE | 2023-08-02 13:51 | PC.NURSE ---
bedside report given to sebastian ferrell. pt and aware of transfer to room. transferred with belongings.
[2023-08-02 14:22] LABS: Anion Gap 13.9; BUN Creatinine Ratio 12.9; Calcium 10.2 mg/dL (8.5-10.1); Carbon Dioxide 23.1 mmol/L (21.0-32.0); Chloride 94 mmol/L (98-107); Estimated GFR (African America >60 (>=60); Estimated GFR (Non-African Ame >60 (>=60); Glucose 167 mg/dL (74-106); Sodium 127 mmol/L (136-145)
[2023-08-02] MEDS: SODIUM CHLORIDE 1,000 MG TABLET 1000 MG PO ×2 (14:24→21:05)
[2023-08-02 15:36] LABS: Glucometer 235 mg/dL (74-106)
[2023-08-02] MEDS: INSULIN ASPART 300 UNIT/3 ML PEN SUBQ ×2 (15:39→21:09)
[2023-08-02 16:49] LABS: Creatinine Urine Random 17.96 mg/dL (20.00-300.00); Sodium Urine Random 44 mmol/L (30-90)
[2023-08-02 18:07] LABS: Anion Gap 13.6; BUN Creatinine Ratio 14.7; Calcium 9.7 mg/dL (8.5-10.1); Carbon Dioxide 23.4 mmol/L (21.0-32.0); Chloride 95 mmol/L (98-107); Estimated GFR (African America >60 (>=60); Estimated GFR (Non-African Ame >60 (>=60); Glucose 161 mg/dL (74-106); Sodium 128 mmol/L (136-145)
[2023-08-02] MEDS: ATORVASTATIN CALCIUM 40 MG TABLET PO (21:05)
[2023-08-02] MEDS: QUETIAPINE FUMARATE 25 MG TABLET PO (21:05)
[2023-08-02 21:06] LABS: Glucometer 169 mg/dL (74-106)
[2023-08-02 22:19] LABS: Anion Gap 10.2; BUN Creatinine Ratio 18.3; Calcium 9.7 mg/dL (8.5-10.1); Carbon Dioxide 22.2 mmol/L (21.0-32.0); Chloride 97 mmol/L (98-107); Estimated GFR (African America >60 (>=60); Estimated GFR (Non-African Ame >60 (>=60); Glucose 156 mg/dL (74-106); Potassium 4.4 mmol/L (3.5-5.1); Sodium 125 mmol/L (136-145)
[2023-08-03] VITALS (19 sets, daily range): BP systolic 99–134; BP diastolic 60–85; PULSE 59–140; TEMP 36.1–37.7; O2SAT 95–99
[2023-08-03] MEDS: SODIUM CHLORIDE 1,000 MG TABLET 1000 MG PO ×3 (05:57→21:37)
[2023-08-03 07:33] LABS: Glucometer 148 mg/dL (74-106)
[2023-08-03] MEDS: 0.9 % SODIUM CHLORIDE 1,000 ML 75 ML IV ×2 (08:32→19:19)
[2023-08-03] MEDS: ASPIRIN 81 MG TABLET.DR PO (08:34)
[2023-08-03] MEDS: 0.9 % SODIUM CHLORIDE 500 ML IV (08:34)
--- NOTE | 2023-08-03 09:23 | PM.IMPN1 ---
Progress Note: A&P Assessment and Plan (1) Acute hyponatremia: Assessment and Plan: Likely from dehydration and HCTZ use. Was improving with IVF but fluids were stopped because serum sodium was correcting too fast. Serum sodium is now down to 125 again. Give 500 ml NaCl bolus and restart IVF NS at 75 ml/hr. Recheck BMP at 11 am Closely monitor serum sodium. (2) Generalized weakness: Assessment and Plan: Likely from dehydration and hyponatremia. Looks better than yesterday. PT/OT eval (3) Chronic vertigo: Assessment and Plan: Resolved. Meclizine as needed. (4) HTN (hypertension): Assessment and Plan: BP is borderline low. Hold anti hypertensives. Qualifiers: Hypertension type: primary hypertension Qualified Code(s): I10 - Essential (primary) hypertension (5) Dementia: Assessment and Plan: AAOX 3. Not on any medications for it. On Seroquel for behavioural disturbances. Qualifiers: Dementia type: Alzheimer's Alzheimer's disease onset: late onset Dementia severity: moderate Dementia behavioral or psychological symptom: with psychotic disturbance Qualified Code(s): G30.1 - Alzheimer's disease with late onset; F02.B2 - Dementia in other diseases classified elsewhere, moderate, with psychotic disturbance (6) CAD (coronary artery disease), [place] coronary artery: Assessment and Plan: Cw/ ASA , statin Qualifiers: [place] vs. transplanted heart: [place] heart Associated angina: without angina Qualified Code(s): I25.10 - Atherosclerotic heart disease of [place] coronary artery without angina pectoris (7) HLD (hyperlipidemia): Assessment and Plan: Cw statin Qualifiers: Hyperlipidemia type: unspecified Qualified Code(s): E78.5 - Hyperlipidemia, unspecified (8) Type 2 diabetes mellitus: Assessment and Plan: SSI while inpatient. On metformin as outpatient Qualifiers: Diabetes mellitus stacker tender insulin use: without half-way use Diabetes mellitus complication status: without complication Qualified Code(s): E11.9 - Type 2 diabetes mellitus without complications Internal Medicine - PN: Subj Subjective Interval history: Seen and examined. No overnight events. Subjectively better. His IVF were stopped as his serum sodium was overcorrecting. However, his serum sodium is now down to 125 again. Exam Constitutional Vital Signs, click to edit/add: Last Vital Signs Temp 97.3 F L 08/03/23 06:00 Pulse 89 08/03/23 08:00 Resp 18 08/03/23 08:00 BP 99/60 08/03/23 06:00 Pulse Ox 95 08/03/23 06:00 O2 Del Method Room Air 08/03/23 06:00 Documenting provider has reviewed patient's vital signs: yes Common normals: no apparent distress General appearance: comfortable, ill appearing and frail appearing HENSD Common normals: normocephalic and head/scalp atraumatic Respiratory Common normals: normal respiratory effort, no use of accessory muscles and clear to auscultation bilaterally Effort & inspection: able to speak in complete sentences Cardio Common normals: regular rate, regular rhythm, S1 normal heart sound and S2 normal heart sound GI Common normals: Normal to inspection, nondistended, normoactive bowel sounds present, soft to palpation, non-tender and no hepatosplenomegaly Extremity Common normals: normal to inspection and full ROM Neuro Common normals: oriented x3, moves all extremities, no focal motor deficits and no sensory deficits noted Speech: speech normal Psych Common normals: cooperative, denies homicidal ideation and denies suicidal ideation Internal Medicine - PN: Obj Da Labs Labs: Laboratory Results - last 24 hr 08/02/23 08/02/23 08/02/23 09:54 12:10 14:00 Sodium 127 L Potassium 4.1 Chloride 94 L Carbon Dioxide 23.0 Anion Gap 14.1 BUN 12.0 Creatinine 1.00 Est GFR ( Amer) >60 Est GFR (Non-Af Amer) >60 BUN/Creatinine Ratio 12.0 Glucose 113 H Calcium 10.3 H Ur Random Creatinine 17.96 L Ur Random Sodium 44 POC Glucose 185 H 08/02/23 08/02/23 08/02/23 14:05 15:35 17:53 Sodium 127 L 128 L Potassium 4.0 4.0 Chloride 94 L 95 L Carbon Dioxide 23.1 23.4 Anion Gap 13.9 13.6 BUN 13.0 15.0 Creatinine 1.01 1.02 Est GFR ( Amer) >60 >60 Est GFR (Non-Af Amer) >60 >60 BUN/Creatinine Ratio 12.9 14.7 Glucose 167 H 161 H Calcium 10.2 H 9.7 Ur Random Creatinine Ur Random Sodium POC Glucose 235 H 08/02/23 08/02/23 08/03/23 21:05 22:03 07:32 Sodium 125 L Potassium 4.4 Chloride 97 L Carbon Dioxide 22.2 Anion Gap 10.2 BUN 17.0 Creatinine 0.93 Est GFR ( Amer) >60 Est GFR (Non-Af Amer) >60 BUN/Creatinine Ratio 18.3 Glucose 156 H Calcium 9.7 Ur Random Creatinine Ur Random Sodium POC Glucose 169 H 148 H
--- NOTE | 2023-08-03 09:39 | CM.NOTE ---
Rounds made with Dr. Godinez. Mr. Barros explains to Dr. Godinez he just doesn't feel well. Dr. Godinez explains labs to Mr. Barros. No discharge today.
--- NOTE | 2023-08-03 10:20 | PT.DAILY ---
Physical Therapy Daily Note PT Daily Note/Assess Start: 08/03/23 10:15 Freq: Status: Active Protocol: Document 08/03/23 10:16 AUTUMN (Rec: 08/03/23 10:20 AUTUMN [id number]) Physical Therapy Daily Note/Assessment Time In/Time Out Time In 10:00 Time Out 10:14 Pain In Pain N/A Pain Out Pain N/A Subjective Subjective Sitting EOB upon arrival. Agrees to PT. Therapeutic Exercise Time Therapeutic Exercise Minutes (minutes) 3 Therapeutic Exercise Units 0 Therapeutic Exercise Treatment Therapeutic Exercise Treatment Seated bilat LE strengthening ex complete 10x ea in BS chair . Therapeutic Activity Time Therapeutic Activity Minutes (minutes) 8 Therapeutic Activity Units 1 Therapeutic Activity Treatment Chair Transfer Ability Contact Guard Assist Therapeutic Activity Comments Sit>stand to RW CGA. Amb 20' to restroom with RW, 1x retro LOB with [place] to correct. Needs assistance pulling brief down. Ascends to toilet using handrail SBA. Sit>stand from toilet CGA. Pt amb 4' to sink with RW. Pt has tooth brush, wash cloth and mouthwash set up but decided not to do any of this - did stand at sink 2 min. Amb 25' to BS chair with RW, CGA with assist for IV pole. Pt remains in BS chair after seated ex with call light in reach and needs met. Total Physical Therapy Time Total Therapy Minutes 11 Total Physical Therapy Units 1 Summary Daily Note Summary Confused. RW today vs cane for increased stability. 1x retro LOB with [place] to correct.
[2023-08-03 11:12] LABS: Anion Gap 10.9; BUN Creatinine Ratio 13.5; Calcium 10.2 mg/dL (8.5-10.1); Carbon Dioxide 25.1 mmol/L (21.0-32.0); Chloride 102 mmol/L (98-107); Estimated GFR (African America >60 (>=60); Estimated GFR (Non-African Ame >60 (>=60); Glucose 159 mg/dL (74-106); Sodium 134 mmol/L (136-145)
[2023-08-03 11:26] LABS: Glucometer 166 mg/dL (74-106)
[2023-08-03] MEDS: INSULIN ASPART 300 UNIT/3 ML PEN SUBQ ×3 (13:11→21:39)
--- NOTE | 2023-08-03 13:48 | SWNOTE1 ---
SW called , home phone, and left message. SW checked in room and she was not in yet. SW spoke with pt and he was not sure when or if she was coming. Pt voiced he had to use the restroom, SW notified nursing.
--- NOTE | 2023-08-03 14:53 | SWNOTE1 ---
SW spoke to pt's in room. She voiced she went down to financial services and was able to speak to someone about there hospital bills. SW and pt's spoke about home health services again and what that consists of. At this time pt's does not feel it is necessary. She voiced she does not have the time for home health to come in and she has to take care of other things around the house. SW let her know they would not come in everyday and they would schedule times with her. SW also assured her it would be covered by pt's insurance. Pt's again refuses home health at this time. Pt's voiced she does not have much help at home. Her one friend can't drive anymore and she used to come sit with pt while she went grocery shopping. She now takes him with her to the store and pt uses his rollator at the store so he can sit when tired. Pt does have 2 sons but they live out of town and have families of there own. Pt's voiced appreciation for the doctor's and the great care they have given pt. She also spoke about pt's dementia/confusion. LUPE asked if she locks her home at night in case pt starts wandering and she voiced she did. At this time pt's does not want any home health services. LUPE advised her that pt's PCP can set it up from the office if they do decide they want home health after discharge.
[2023-08-03 16:33] LABS: Glucometer 174 mg/dL (74-106)
[2023-08-03 20:00] LABS: Glucometer 192 mg/dL (74-106)
[2023-08-03] MEDS: ATORVASTATIN CALCIUM 40 MG TABLET PO (21:37)
[2023-08-03] MEDS: QUETIAPINE FUMARATE 25 MG TABLET PO (21:37)
[2023-08-04] VITALS (7 sets, daily range): BP systolic 114–127; BP diastolic 59–76; PULSE 54–110; TEMP 35.6–36.6; O2SAT 96–100
[2023-08-04] MEDS: SODIUM CHLORIDE 1,000 MG TABLET 1000 MG PO (05:42)
[2023-08-04 08:13] LABS: Glucometer 122 mg/dL (74-106)
[2023-08-04 08:27] LABS: Anion Gap 13.3; BUN Creatinine Ratio 15.6; Calcium 10.2 mg/dL (8.5-10.1); Chloride 108 mmol/L (98-107); Estimated GFR (African America >60 (>=60); Estimated GFR (Non-African Ame >60 (>=60); Glucose 125 mg/dL (74-106); Potassium 4.3 mmol/L (3.5-5.1); Sodium 139 mmol/L (136-145)
[2023-08-04] MEDS: 0.9 % SODIUM CHLORIDE 1,000 ML 75 ML IV (08:57)
[2023-08-04] MEDS: ASPIRIN 81 MG TABLET.DR PO (08:57)
--- NOTE | 2023-08-04 10:14 | CM.NOTE ---
Rounds made with Dr. Godinez, discussed discharge to home with pt and . Dr. Godinez also discussed medication changes and stopping BP medications. Discussed with about checking pt's BP daily and keeping a log for primary care physician at follow up. verbalizes understanding.
--- NOTE | 2023-08-04 10:18 | PT.DAILY ---
Physical Therapy Daily Note PT Daily Note/Assess Start: 08/03/23 10:15 Freq: Status: Active Protocol: Document 08/04/23 10:15 AUTUMN (Rec: 08/04/23 10:18 AUTUMN [id number]) Physical Therapy Daily Note/Assessment Time In/Time Out Time In 10:00 Time Out 10:14 Pain In Pain N/A Pain Out Pain N/A Subjective Subjective Pt supine upon arrival. Agrees to PT. Slept well last night. Planned dc this morning. Therapeutic Activity Time Therapeutic Activity Minutes (minutes) 10 Therapeutic Activity Units 1 Therapeutic Activity Treatment Bed Mobility Ability Standby Assistance Chair Transfer Ability Standby Assistance Therapeutic Activity Comments Supine>sit SBA with increased time needed. Sit>stand to RW SBA for safety. Pt amb 60' CGA with IV pole. Pt returned to sitting at EOB. Pt assisted in sponge bath and getting dressed. Pt able to wash his upper body with set up only and assistance to wash his back. Set up only for donning his shirt but requires assistance for underwear, socks and jeans. Sit>stand SBA and assistance needed to pull up his pants. Amb without AD 5' to BS chair SBA. remains in BS chair with present and call light within reach. Total Physical Therapy Time Total Therapy Minutes 10 Total Physical Therapy Units 1 Summary Daily Note Summary Less confusion noticed today. Pt amb safely with RW, SBA/CGA . No LOB.
--- NOTE | 2023-08-04 10:19 | CM.NOTE ---
2nd Notice of Important Message From Medicare discussed with pt and , denies any questions or concerns.
--- NOTE | 2023-08-04 10:27 | PM.DS1 ---
DS: Providers Provider Date of admission: 08/02/23 03:45 Primary care physician: Kenny Brown MD Admitting clinician: Shaikh Herbert Attending physician on admission: Shaikh Herbert Consults: 08/02/23 Occupational Therapy Eval and Treat Routine Reason for consultation: weakness Physical Therapy Eval and Treat Routine Reason for consultation: weakness Attending physician on discharge: Shaikh Herbert Discharging clinician: Shaikh Herbert Anticipated date of discharge: 08/04/23 DS: Diagnosis Discharge Diagnosis (1) Acute hyponatremia: Assessment and plan: Resolved. Likely from HCTZ. (2) Generalized weakness: Assessment and plan: Improved with PT/OT. Monitor. (3) Chronic vertigo: Assessment and plan: Resolved. meclizine as needed (4) HTN (hypertension): Assessment and plan: BP well controlled w/o anti hypertensives. his reports that his bp is sometimes too low and she has wondered if he really needs to be on meds for HTN Hold antihypertensives and monitor BP at home Follow up with PCP with home BP log who can then decide whether or not patient needs to be on anti htn meds. Qualifiers: Hypertension type: primary hypertension Qualified Code(s): I10 - Essential (primary) hypertension (5) Dementia: Assessment and plan: AAOX 3, stable. Qualifiers: Dementia type: Alzheimer's Alzheimer's disease onset: late onset Dementia severity: moderate Dementia behavioral or psychological symptom: with psychotic disturbance Qualified Code(s): G30.1 - Alzheimer's disease with late onset; F02.B2 - Dementia in other diseases classified elsewhere, moderate, with psychotic disturbance (6) CAD (coronary artery disease), [place] coronary artery: Assessment and plan: Stable. No evidence of angina or active cardiac ischemia. Monitor. Qualifiers: [place] vs. 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 His work up in ED revealed severe hyponatremia - 121 and he was admitted for treatment of his hypoantremia. Patient was started on IVF NS with improvement in his serum sodium. His serum sodium improved with IV hydration. His BP meds were on hold and his BP is well controlled w/o medications. It seems to me that he has been experiencing extremely low BP at home. I will d/c his BP meds and defer further management to his PCP. I recommended monitoring home BP and to bring his home BP log to his appointment with PCP. Patient was on HCTZ for HTN but it seems he is also on salt tablets. I will d/c both upon discharge and recommend BMP in one to ascertain whether he really needs to be on salt tablets now that he is not on HCTZ anymore. Status at Discharge Overall status at discharge: patient is back to baseline Time Spent with Patient Time attestation: Total time spent providing and/or coordinating discharge services: Time spent: greater than 30 minutes Exam Constitutional Vital Signs, click to edit/add: Last Vital Signs Temp 96.1 F L 08/04/23 08:54 Pulse 55 L 08/04/23 08:04 Resp 14 08/04/23 08:04 BP 114/59 08/04/23 08:04 Pulse Ox 98 08/04/23 08:04 O2 Del Method Room Air 08/04/23 08:04 Documenting provider has reviewed patient's vital signs: yes Common normals: no apparent distress General appearance: comfortable, ill appearing and frail appearing Respiratory Common normals: normal respiratory effort, no use of accessory muscles and clear to auscultation bilaterally Effort & inspection: able to speak in complete sentences Cardio Common normals: regular rate, regular rhythm, S1 normal heart sound and S2 normal heart sound Extremity Common normals: normal to inspection and full ROM Neuro Common normals: oriented x3, moves all extremities, no focal motor deficits and no sensory deficits noted Speech: speech normal Psych Common normals: cooperative, denies homicidal ideation and denies suicidal ideation DS: Data Data Completed and Pending Labs on day of discharge: Labs from last 24 hours 08/04/23 08/04/23 08/03/23 08:11 07:54 19:58 Sodium 139 Potassium 4.3 Chloride 108 H Carbon Dioxide 22.0 Anion Gap 13.3 BUN 15.0 Creatinine 0.96 Est GFR ( Amer) >60 Est GFR (Non-Af Amer) >60 BUN/Creatinine Ratio 15.6 Glucose 125 H Calcium 10.2 H POC Glucose 122 H 192 H 08/03/23 08/03/23 08/03/23 16:31 11:24 10:57 Sodium 134 L Potassium 4.0 Chloride 102 Carbon Dioxide 25.1 Anion Gap 10.9 BUN 13.0 Creatinine 0.96 Est GFR ( Amer) >60 Est GFR (Non-Af Amer) >60 BUN/Creatinine Ratio 13.5 Glucose 159 H Calcium 10.2 H POC Glucose 174 H 166 H Discharge Plan Discharge Disposition: Home, Self-Care Discharge Medications: Continued metformin 500 mg tablet 1,000 mg PO BIDWM rosuvastatin 20 mg tablet 20 mg PO DAILY aspirin [Adult Aspirin Regimen] 81 mg tablet,delayed release (DR/EC) 81 mg PO DAILY quetiapine 25 mg tablet 25 mg PO .QHS Discontinued lisinopril-hydrochlorothiazide 10-12.5 mg tablet 1 tab PO QDAY aripiprazole 5 mg tablet 5 mg PO .qhs isosorbide mononitrate 30 mg tablet extended release 24 hr 30 mg PO DAILY Qty: 30 11RF sodium chloride 1,000 mg tablet,soluble 1,000 mg PO TID Activity: resume usual activities as tolerated Diet: advance to your usual diet Print Language: Kyrgyz Forms: Portal Instructions Follow Up Appointments: Dr Brown Rupa August 14 at 3:15pm. [phone] Maintain BP log at home w/o using BP meds. Need BMP in one week to ensure serum sodium is stable w/o salt tablets
[2023-08-04 21:07] LABS: Osmolality, Urine 181 mOsmol/kg (.)
== END 2023-08-04 10:53 | disposition home or self-care (01) | DRG 641 ==
LOC: ER 03:17 → ICU 03:46 → MS 13:39
PROVIDERS: Registered Nurse; Admitting Provider Internal Medicine; Emergency Provider Internal Medicine; PCP Family Medicine; Visit Provider Internal Medicine
DX: E87.1 Hypo-osmolality and hyponatremia (principal); F02.B2 Dementia in other diseases classified elsewhere, moderate, with psychotic disturbance; I25.10 Atherosclerotic heart disease of native coronary artery without angina pectoris; E78.5 Hyperlipidemia, unspecified; I10 Essential (primary) hypertension; R53.1 Weakness; R42 Dizziness and giddiness; G30.1 Alzheimer's disease with late onset; Z79.82 Long term (current) use of aspirin; H54.3 Unqualified visual loss, both eyes; F17.210 Nicotine dependence, cigarettes, uncomplicated; Z95.1 Presence of aortocoronary bypass graft; Z79.84 Long term (current) use of oral hypoglycemic drugs; Z79.899 Other long term (current) drug therapy; T50.2X5A Adverse effect of carbonic-anhydrase inhibitors, benzothiadiazides and other diuretics, initial encounter; E11.9 Type 2 diabetes mellitus without complications; E86.0 Dehydration
CPT/HCPCS: 36415; 70450; 71045; 80048; 81001; 82570; 82948; 83935; 84300; 84443; 84484; 85025; 93005; 96360; 96361; 97162; 97165; 97530; 97535; 99285

== ENCOUNTER 2023-08-06 09:05 | Inpatient (IN) | payer MEDICARE, SELFPAY ==
[2023-08-06] VITALS (23 sets, daily range): BP systolic 124–177; BP diastolic 56–91; PULSE 73–92; TEMP 36.7–37.2; O2SAT 93–100; BMI 26.7; BMI 26.1
--- OUTSIDE RECORDS SUMMARY | 2023-08-06 09:16 | XMS_ITS | CCD ---
Author Organization [facility] Care Team Providers Care Angle Furnaceman Name Role Phone CAREY TREVIÑO Unavailable Unavailable [...] source) bee venom Drug allergy (disorder) [facility] Repository (1 source) Iodine (And Iodine Containting Drugs) Drug allergy (disorder) [facility] Problems Active Problems Problem Classification Problem Date Documented Da te Episodic/Chronic Chronic obstructive pulmonary disease and bronchiectasis (2 sources) Chronic obstructive pulmonary disease, unspecified; 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: [Chronic obstructive pulmonary disease, unspecified] Onset: 01-23-2023 Chronic Coagulation and hemorrhagic disorders (1 source) Thrombocytopenia, unspecified; 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: [Thrombocytopenia, unspecified] Onset: 06-15-2017 Chronic Coronary atherosclerosis and other heart disease (3 sources) Atherosclerotic heart disease of [place] coronary artery without angina pectoris; 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: [Atherosclerotic heart disease of [place] coronary artery with unspecified angina pectoris] Onset: [...] Onset: 05-03-2022 Chronic Other aftercare (1 source) halfway (current) use of aspirin; 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: [[place] CURRENT USE OF ASPIRIN] Onset: 05-03-2022 Episodic Other aftercare (1 source) Other ocean transportation intermediary (current) drug therapy; 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: [OTH USP CURRENT DRUG THERAPY] Onset: 05-03-2022 Episodic Other aftercare (1 source) halfway (current) use of oral hypoglycemic drugs; 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: [USP USE ORAL HYPOGLYCEMIC DX] Onset: 05-03-2022 Episodic [...] Range Facility Office Visiton 06-02-2023 Follow-up visit [id number] James Barros 1950 M Date Provider Department Center 06/02/2023 KATHY FELICIANO Family History Problem Relation Age of Onset Heart attack Maternal Grandfather Family Status - Relation Status Age at Maternal Grandfather Level of Service:09417 HI OFFICE/OUTPATIENT ESTABLISHED MOD MDM 30 MIN Normal [facility] Office Visiton 01-23-2023 Follow-up visit [id number] James Barros Floresita 1950 M [facility] Provider Department Center 01/23/2023 [id number] PEREZ [facility] Family History Problem Relation Age of Onset Heart attack Maternal Grandfather Family Status - Relation Status Age at Maternal Grandfather Level of Service:70835 HI OFFICE/OUTPATIENT ESTABLISHED MOD MDM 30-39 MIN Normal [facility] Office Visiton 08-15-2022 Follow-up visit [id number] James Barros Floresita 1950 M Date Provider Department [facility] No family history on file Level of Service:61192 HI OFFICE/OUTPATIENT ESTABLISHED MOD MDM 30-39 MIN Reason for Visit and Comments: New Patient [632] Normal [facility] GLYCOHEMOGLOBIN A1Con 2022 ADA RECOMMENDATION SEE BELOW Normal [facility] Comment on above: Result Comment: ADA RECOMMENDED LIMIT 4.0 - 6.0 ADA THERAPEUTIC TARGET < 7.0 ACTION SUGGESTED > 7.0 Performed By: #### A 1C ####[address] Yilan Jean Glucose [Mass/Vol] 197 mg/dL Normal [facility] Comment on above: Performed By: #### A 1C ####[facility] [address] [address]Dr. Vipul Jean HbA1c (Bld) [Mass fraction] 8.5 % Critically high 4.5-6.2 [facility] Comment on above: Performed By: #### A 1C ####[facility] [address] [address]DrNoelle Jean AMYLASEon 05-01-2022 Amylase [Catalytic activity/Vol] 33 U/L Normal 25-115 [facility] Comment on above: Performed By: #### A MY, HSTROPN, LIPA, CMP #### [facility] [address] [place] [address] Dr. Vipul Jean CBC AUTO DIFFon 05-01-2022 BASO # 0.1 103/ul Normal 0.0-0.1 [facility] Comment on above: Performed By: #### C BC #### [facility] [address] [place] [address] Dr. Vipul Jean Basophils/100 WBC (Bld) 0.6 % Normal 0.2-2.0 [facility] Comment on above: Performed By: #### C BC #### [facility] [address] [place] [address] Dr. Vipul Jean EO # 0.1 103/ul Normal 0.0-0.7 [facility] Comment on above: Performed By: #### C BC #### [facility] [address] [place] [address] Dr. Vipul Jean Eosinophils/100 WBC (Bld) 1.4 % Normal 0.9-7.0 [facility] Comment on above: Performed By: #### C BC #### [facility] [address] [place] [address] Dr. Vipul Jean Erythrocyte distribution width (RBC) [Ratio] 12.2 % Normal 11.0-15.0 [facility] Comment on above: Performed By: #### C BC #### [facility] [address] [place] [address] Dr. Vipul Jean Hematocrit (Bld) [Volume fraction] 46.0 % Normal 42.0-54.0 [facility] Comment on above: Performed By: #### C BC #### [facility] [address] [place] [address] Dr. Vipul Jean Hemoglobin (Bld) [Mass/Vol] 16.7 g/dL Normal 14.0-18.0 [facility] Comment on above: Performed By: #### C BC #### [facility] [address] [place] [address] Dr. Vipul Jean IG # 0.04 10e3/ul Critically high 0.00-0.03 [facility] Comment on above: Performed By: #### C BC #### [facility] [address] [place] [address] Dr. Vipul Jean IG % 0.4 % Normal 0.0-0.5 [facility] Comment on above: Performed By: #### C BC #### [facility] [address] [place] [address] Dr. Vipul Jean LYMPH # 1.7 103/ul Normal 1.2-3.8 [facility] Comment on above: Performed By: #### C BC #### [facility] [address] [place] [address] Dr. Vipul Jean Lymphocytes/100 WBC (Bld) 18.7 % Critically low 20.5-60.0 [facility] Comment on above: Performed By: #### C BC #### [facility] [address] [place] [address] Dr. Vipul Jean MANUAL DIFF REQ NO Normal [facility] Comment on above: Performed By: #### C BC #### [facility] [address] [place] [address] Dr. Vipul Jean MCH (RBC) [Entitic mass] 33.3 pg Normal 25.9-34.0 [facility] Comment on above: Performed By: #### C BC #### [facility] [address] [address] [address] Vipul Jean MCHC (RBC) [Mass/Vol] 36.3 g/dL Critically high 29.9-35.2 [facility] Comment on above: Performed By: #### C BC #### [facility] [address] [place] [address] Dr. Vipul Jean MCV (RBC) [Entitic vol] 91.6 fL Normal 80.0-94.0 [facility] Comment on above: Performed By: #### C BC #### [facility] [address] [place] [address] Dr. Vipul Jean MONO # 0.6 103/ul Normal 0.3-0.8 [facility] Comment on above: Performed By: #### C BC #### [facility] [address] [place] [address] Dr. Vipul Jean Monocytes/100 WBC (Bld) 6.9 % Normal 1.7-12.0 [facility] Comment on above: Performed By: #### C BC #### [facility] [address] [place] [address] Dr. Vipul Jean NEUT # 6.5 103/ul Normal 1.4-6.5 [facility] Comment on above: Performed By: #### C BC #### [facility] [address] [place] [address] Dr. Vipul Jean Neutrophils/100 WBC (Bld) 72.0 % Normal 43.0-75.0 [facility] Comment on above: Performed By: #### C BC #### [facility] [address] [place] [address] Dr. Vipul Jean Platelet mean volume (Bld) [Entitic vol] 10.5 fL Normal 9.5-13.5 [facility] Comment on above: Performed By: #### C BC #### [facility] [address] [place] [address] Dr. Vipul Jean PLT 125 103/ul Critically low 150-450 [facility] Comment on above: Performed By: #### C BC #### [facility] [address] [place] [address] Dr. Vipul Jean RBC 5.02 106/ul Normal 4.70-6.10 [facility] Comment on above: Performed By: #### C BC #### [facility] [address] [address] [address] Vipul Jean WBC 9.0 103/ul Normal 4.0-11.0 [facility] Comment on above: Performed By: #### C BC #### [facility] [address] ABD/PELVIS WO CONon [...] HOME MARX Date: 2022-05-01 15:31 Normal [facility] LIPASEon 05-01-2022 Lipase [Catalytic activity/Vol] 62.0 U/L Critically low 73.0-393.0 [facility] Comment on above: Performed By: #### A MY, HSTROPN, LIPA, CMP #### [facility] [address] [address] [address] Vipul Jean PROF 14(COMP METB)on 023 Albumin [Mass/Vol] 3.4 g/dL Normal 3.4-5.0 [facility] Comment on above: Performed By: #### A MY, HSTROPN, LIPA, CMP #### [facility] [address] [place] [address] Dr. Vipul Jean Albumin/Globulin [Mass ratio] 1.1 {ratio} Normal [facility] Comment on above: Performed By: #### A MY, HSTROPN, LIPA, CMP #### [facility] [address] [place] [address] Dr. Vipul Jean ALP [Catalytic activity/Vol] 93 U/L Normal 46-116 [facility] Comment on above: Performed By: #### A MY, HSTROPN, LIPA, CMP #### [facility] [address] [place] [address] Dr. Vipul Jean ALT [Catalytic activity/Vol] 38 U/L Normal 16-63 [facility] Comment on above: Performed By: #### A NICHOL, HSTROPN, LIPA, CMP #### [facility] [address] [place] [address] Dr. Vipul Jean Anion gap [Moles/Vol] 10.6 mmol/L Normal [facility] Comment on above: Performed By: #### A NICHOL, HSTROPN, LIPA, CMP #### [facility] [address] [place] [address] Dr. Vipul Jean AST [Catalytic activity/Vol] 29 U/L Normal 15-37 [facility] Comment on above: Performed By: #### A NICHOL, HSTROPN, LIPA, CMP #### [facility] [address] [place] [address] Dr. Vipul Jean Bilirubin [Mass/Vol] 0.6 mg/dL Normal 0.2-1.0 [facility] Comment on above: Performed By: #### A MY, HSTROPN, LIPA, CMP #### [facility] [address] [place] [address] Dr. Vipul Jean Calcium [Mass/Vol] 10.0 mg/dL Normal 8.5-10.1 [facility] Comment on above: Performed By: #### A MY, HSTROPN, LIPA, CMP #### [facility] [address] [place] [address] Dr. Vipul Jean Chloride [Moles/Vol] 105 mmol/L Normal 98-107 [facility] Comment on above: Performed By: #### A MY, HSTROPN, LIPA, CMP #### [facility] [address] [place] [address] Dr. Vipul Jean CO2 [Moles/Vol] 24.6 mmol/L Normal 21.0-32.0 [facility] Comment on above: Performed By: #### A MY, HSTROPN, LIPA, CMP #### [facility] [address] [place] [address] Dr. Vipul Jean Creatinine [Mass/Vol] 1.08 mg/dL Normal 0.70-1.30 [facility] Comment on above: Performed By: #### A MY, HSTROPN, LIPA, CMP #### [facility] [address] [place] [address] Dr. Vipul Jean EGFR-AF [place] >60 Normal >=60 [facility] Comment on above: Performed By: #### A MY, HSTROPN, LIPA, CMP #### [facility] [address] [place] [address] Dr. Vipul Jean EGFR-NON AF [place] >60 Normal >=60 [facility] Comment on above: Performed By: #### A MY, HSTROPN, LIPA, CMP #### [facility] [address] [place] [address] Dr. Vipul Jean Globulin (S) [Mass/Vol] 3.2 g/dL Normal [facility] Comment on above: Performed By: #### A MY, HSTROPN, LIPA, CMP #### [facility] [address] [place] [address] Dr. Vipul Jean Glucose [Mass/Vol] 215 mg/dL Critically high 74-106 [facility] Comment on above: Performed By: #### A MY, HSTROPN, LIPA, CMP #### [facility] [address] [address] [address] Vipul Jean Potassium [Moles/Vol] 4.2 mmol/L Normal 3.5-5.1 [facility] Comment on above: Performed By: #### A MY, HSTROPN, LIPA, CMP #### [facility] [address] [address] [address] Vipul Jean Protein [Mass/Vol] 6.6 g/dL Normal 6.4-8.2 [facility] Comment on above: Performed By: #### A MY, HSTROPN, LIPA, CMP #### [facility] [address] [address] [address] Vipul Jean Sodium [Moles/Vol] 136 mmol/L Normal 136-145 [facility] Comment on above: Performed By: #### A MY, HSTROPN, LIPA, CMP #### [facility] [address] [place] [address] Dr. Vipul Jean Urea nitrogen [Mass/Vol] 16.0 mg/dL Normal 7.0-18.0 [facility] Comment on above: Performed By: #### A MY, HSTROPN, LIPA, CMP #### [facility] [address] [place] [address] Dr. Vipul Jean Urea nitrogen/Creatinine [Mass ratio] 14.8 mg/mg Normal [facility] Comment on above: Performed By: #### A MY, HSTROPN, LIPA, CMP #### [facility] [address] [address] [address] Vipul Jean TROPONIN, HIGH SENSITIVITYon 05-01-2022 HSTROP 21.4 pg/mL Normal 4.0-76.1 [facility] Comment on above: Result Comment: CUT- OFF POINTS HAVE BEEN ESTABLISHED BASED ON THE FOURTH UNIVERSAL DEFINITIONS OF MYOCARDIAL INFARCTION. THE UPPER REFERENCE LIMIT (URL) OF TROPONIN, DEFINED THE 99TH PERCENTILE OF cTnI DISTRIBUTION IN A REFERENCE POPULATION, HAS BEEN CONFIRMED THE DECISION THRESHOLD FOR VA DIAGNOSIS. Performed By: #### A MY, HSTROPN, LIPA, CMP #### [facility] [address] [place] [address] Dr. Vipul Jean CBC AUTO DIFFon 02-14-2022 BASO # 0.1 103/ul Normal 0.0-0.1 [facility] Comment on above: Performed By: #### C BC #### [facility] [address] [place] [address] Dr. Vipul Jean Basophils/100 WBC (Bld) 0.6 % Normal 0.2-2.0 [facility] Comment on above: Performed By: #### C BC #### [facility] [address] [place] [address] Dr. Vipul Jean EO # 0.1 103/ul Normal 0.0-0.7 [facility] Comment on above: Performed By: #### C BC #### [facility] [address] [place] [address] Dr. Vipul Jean Eosinophils/100 WBC (Bld) 1.6 % Normal 0.9-7.0 [facility] Comment on above: Performed By: #### C BC #### [facility] [address] [place] [address] Dr. Vipul Jean Erythrocyte distribution width (RBC) [Ratio] 12.1 % Normal 11.0-15.0 [facility] Comment on above: Performed By: #### C BC #### [facility] [address] [place] [address] Dr. Vipul Jean Hematocrit (Bld) [Volume fraction] 47.9 % Normal 42.0-54.0 [facility] Comment on above: Performed By: #### C BC #### [facility] [address] [place] [address] Dr. Vipul Jean Hemoglobin (Bld) [Mass/Vol] 17.1 g/dL Normal 14.0-18.0 [facility] Comment on above: Performed By: #### C BC #### [facility] [address] [place] [address] Dr. Vipul Jean IG # 0.03 10e3/ul Normal 0.00-0.03 [facility] Comment on above: Performed By: #### C BC #### [facility] [address] [place] [address] Dr. Vipul Jean IG % 0.4 % Normal 0.0-0.5 [facility] Comment on above: Performed By: #### C BC #### [facility] [address] [place] [address] Dr. Vipul Jean LYMPH # 1.8 103/ul Normal 1.2-3.8 [facility] Comment on above: Performed By: #### C BC #### [facility] [address] [place] [address] Dr. Vipul Jean Lymphocytes/100 WBC (Bld) 22.4 % Normal 20.5-60.0 [facility] Comment on above: Performed By: #### C BC #### [facility] [address] [place] [address] Dr. Vipul Jean MANUAL DIFF REQ NO Normal [facility] Comment on above: Performed By: #### C BC #### [facility] [address] [place] [address] Dr. Vipul Jean MCH (RBC) [Entitic mass] 33.0 pg Normal 25.9-34.0 [facility] Comment on above: Performed By: #### C BC #### [facility] [address] [place] [address] Dr. Vipul Jean MCHC (RBC) [Mass/Vol] 35.7 g/dL Critically high 29.9-35.2 [facility] Comment on above: Performed By: #### C BC #### [facility] [address] [place] [address] Dr. Vipul Jean MCV (RBC) [Entitic vol] 92.5 fL Normal 80.0-94.0 [facility] Comment on above: Performed By: #### C BC #### [facility] [address] [place] [address] Dr. Vipul Jean MONO # 0.6 103/ul Normal 0.3-0.8 [facility] Comment on above: Performed By: #### C BC #### [facility] [address] [place] [address] Dr. Vipul Jean Monocytes/100 WBC (Bld) 7.0 % Normal 1.7-12.0 [facility] Comment on above: Performed By: #### C BC #### [facility] [address] [place] [address] Dr. Vipul Jean NEUT # 5.5 103/ul Normal 1.4-6.5 [facility] Comment on above: Performed By: #### C BC #### [facility] [address] [place] [address] Dr. Vipul Jean Neutrophils/100 WBC (Bld) 68.0 % Normal 43.0-75.0 [facility] Comment on above: Performed By: #### C BC #### [facility] [address] [place] [address] Dr. Vipul Jean Platelet mean volume (Bld) [Entitic vol] 11.0 fL Normal 9.5-13.5 [facility] Comment on above: Performed By: #### C BC #### [facility] [address] [place] [address] Dr. Vipul Jean PLT 101 103/ul Critically low 150-450 [facility] Comment on above: Performed By: #### C BC #### [facility] [address] [place] [address] Dr. Vipul Jean RBC 5.18 106/ul Normal 4.70-6.10 [facility] Comment on above: Performed By: #### C BC #### [facility] [address] [place] [address] Dr. Vipul Jean WBC 8.1 103/ul Normal 4.0-11.0 [facility] Comment on above: Performed By: #### C BC #### [facility] [address] [place] [address] Dr. Vipul Jean CRPon 02-14-2022 CRP [Mass/Vol] mg/L Normal <=1.0 [facility] Comment on above: Performed By: #### C RP, URIC #### [facility] [address] [place] [address] Dr. Vipul Jean URIC ACID SERUMon 02-14-2022 Urate [Mass/Vol] 4.4 mg/dL Normal 3.5-7.2 [facility] Comment on above: Performed By: #### C RP, URIC #### [facility] [address] [address] [address] Vipul Jean XR ANKLE LT MIN [...] by: NORY ALICIA Date: 2022-02-14 15:05 Normal [facility] CNOVSPon 06-15-2017 CNOVSP Visit (SP) Office (HEMACL) Ko BARROSSIMI Floresita ([id number]) 1950 MDate Time Provider Department06/15/17 3:45 PM [...] kg (204 lb 9.6 oz) BMI 33.02 kg/s6Omxmxmj Appearance: alert and oriented, appearing in no [...] Q53.10See Cruz Treviño MDReferring Provider: AUDREY OSHEA [[id number]]Allergies As of Date: 06/15/2017(No Known Allergies)Date Reviewed: 06/15/2017Reviewed by: Liliane Molina - Fully AssessedReason for Visit: low platelets [Other] Cmt: new patient consultationPrimary Visit Diagnosis:Thrombocytopeni a (HCC) [D69.6] Other Visit Diagnoses: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 left testicle [Q53.10]Order(s):ABS GRAN CT + CBC (FOR REMOTE [facility] USE) [SQRAGCBC] Order #: [id number] FUTUREFollow-up and Disposition History RecordedPrescriptions as of [...] by CAREY TREVIÑO MD on 06/15/17 Normal [facility] PROGRESSon 06-15-2017 PROGRESS HNO ID: [id number] thor: [place]: (none)Author Type: PhysicianType: Progress [...] kg (204 lb 9.6 oz) BMI 33.02 kg/t6Ycmmbfc Appearance: alert and oriented, appearing in no [...] ABS GRAN CT + CBC (FOR REMOTE [facility] USE)2. S/P CABG x 5 - ICD9: V45.81, ICD10: Z95.1See above3. Undescended left testicle - ICD9: 752.51, ICD10: Q53.10See Cruz Treviño MD Normal [facility] Remote Abs Gran + CBC (for F use only)on 06-15-2017 Absol Gran Count 5.25 k/uL Normal 1.45-7.50 Fe [facility] Erythrocyte distribution width Auto Ratio (RBC) 12.4 % Normal 11.5-15.0 [facility] Erythrocytes (RBC) 4.87 10*6/uL Normal 4.20-6.00 [facility] Hematocrit (HCT) 45.5 % Normal 39.0-51.0 [facility] Hemoglobin mass conc (Bld) 15.7 g/dL Normal 13.0-17.0 [facility] MCH 32.2 pG Normal 26.0-34.0 [facility] MCHC mass conc (RBC) 34.5 g/dL Normal 30.5-36.0 [facility] MCV 93.4 fL Normal 80.0-100.0 [facility] Platelet mean volume (PMV) 10.8 fL Normal 9.0-12.7 [facility] Platelets 116 10*3/uL Low 150-400 [facility] WBC (Leukocytes) 7.93 10*3/uL Normal 3.70-11.00 [facility] Encounters Encounter Date Encounter Type Care Provider Facility Start: 06-28-2023 End: 06-28-2023 ambulatory TERRANCE HORTON Not Available Start: 06-16-2023 End: 07-17-2023 ambulatory [facility] Start: 06-02-2023 End: 06-02-2023 ambulatory [facility] Start: 05-25-2023 End: 06-16-2023 ambulatory [facility] Start: 05-23-2023 End: 05-28-2023 Emergency department patient visit [facility] Start: 04-24-2023 End: 04-24-2023 ambulatory TERRANCE HORTON Not Available Start: 03-02-2023 End: 03-02-2023 ambulatory KARINA PARKINSON Not Available Start: 01-23-2023 End: 01-23-2023 ambulatory [facility] Start: 08-15-2022 End: 08-15-2022 ambulatory [facility] Start: 07-27-2022 End: 07-28-[address] TERRANCE HORTON Facility:[facility] Start: 05-01-2022 End: 05-01-[address] TERRANCE HORTON Facility:[facility] Start: 02-14-2022 End: 02-14-[address] TERRANCE HORTON Facility:[facility] Start: 06-15-2017 End: 06-16-2017 Ambulatory CAREY TREVIÑO [facility] Payers Date Payer Category Payer Medicare [id number] 1950 Unknown [id number] 2.16.84 [id number] 1950 Unknown [id number] 2.16.84 [id number] 1950 Unknown [id number] 2.16.84 [id number] 1950 Unknown [id number] 2.16.8 [id number] 1950 Unknown [id number] 2.16.84 [id number] 1950 Unknown [id number] 2.16.84 [id number] 1950 Unknown [id number] 2.16.840 .[id number] 1950 Unknown [id number] 2.16.8 [id number] 1950 Unknown [id number] 2.16.8 [id number] Progress note 06-02-2023 Note Date & Type Note Facility 06-02-2023 Note error [facility] Progress note 06-02-2023 Note Date & Type Note Facility 06-02-2023 Note Cardiology Clinic No te Chief Complaint: establish care HPI: James Barros is a 72 y.o. male with a past medical history including HTN, HLD, COPD, and CAD s/p CABG in 2010. 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 Patient presents today for [...] cessation. I emphasized (more content not included)... [facility] Progress note 01-23-2023 Note Date & Type Note Facility 01-23-2023 Note Cardiology Clinic No te Subjective James Barros is a 72 y.o. year old male patient with HTN, HLD, COPD, and CAD s/p CABG in 2010 seen in follow-up. 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 Update: 08/15/2022 Patient adamantly [...] for this visit: Coronary artery disease involving [place] coronary artery of [place] heart with angina pectoris ([facility]/HCC) Essential hypertension Mixed hyperlipidemia Hx of CABG Chronic obstructive pulmonary disease, unspecified COPD type ([facility]) Tobacco dependence Intermittent claudication ([facility]) Plan 1. Coronary artery disease -Multivessel coronary [...] of twice daily. (more content not included)... [facility] Progress note 01-23-2023 Note Date & [...] All other systems reviewed and are negative. [facility] Progress note 08-15-2022 Note Date & Type Note Facility 08-15-2022 Note Cardiology Clinic No te Chief Complaint: establish care HPI: James Barros is a 72 y.o. male with a past medical history including HTN, HLD, COPD, and CAD s/p CABG in 2010. 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 Patient adamantly denies any [...] or concerns. Kathy Paz MD Interventional Cardiology [facility] Summary Purpose Family History No Family History [...] section and content) DATE CREATED AUTHOR 10/06/2017 [facility] DATE CREATED AUTHOR AUTHOR'S ORGANIZ ATION 08/01/2022 [facility] DATE CREATED AUTHOR AUTHOR'S ORGANIZ ATION 05/29/2023 [facility] DATE CREATED AUTHOR AUTHOR'S ORGANIZ ATION 06/04/2023 [facility] DATE CREATED AUTHOR AUTHOR'S ORGANIZ ATION 06/29/2023 [facility] DATE CREATED AUTHOR AUTHOR'S ORGANIZ ATION 07/17/2023 [facility] FOR RECORDS PERTAINING TO PATIENTS WHO ARE [...] BE BASED ON THE PRIMARY CLINICAL RECORDS. [employer] provides no warranty or guarantee of the accuracy or completeness of information in this document.
--- NOTE | 2023-08-06 09:23 | ECG_ITS ---
The [facility] Test Date: 2023-08-06 Pat Name: JAMES POPE Department: Room: - Gender: Male [employer]: : 1950 Requested By: TERRANCE HORTNO Order Number: [id number] Reading MD: ROBSON DUARTE Measurements Intervals [place] Rate: 88 P: 3 AL: 258 QRS: -77 QRSD: 140 T: 78 QT: 396 QTc: 441 Interpretive Statements 1100 Sinus rhythm 2231 First degree AV block 2450 Right bundle branch block 2630 Left anterior fascicular block 3532 Lateral myocardial infarction, probably recent 3634 Inferior myocardial infarction, age undetermined 9150 abnormal ECG Compared to ECG 08/02/2023 01:03:45 No significant changes Electronically Signed On 08-07-2023 7:41:16 EDT by ROBSON DUARTE
--- NOTE | 2023-08-06 09:23 | XR_ITS ---
The [address] [address] Patient Name: JAMES POPE MRN: [id number] date: 1950 Sex: M Assigned Patient Location: ER Current Patient Location: ER Accession/Order Number: [id number] Exam Date: 08/06/2023 09:55 Report Date: 08/06/2023 11:14 At the request of: SHIRIN ANGELES Procedure: XR knee TEMITOPE 3V EXAMINATION: XR knee TEMITOPE 3V HISTORY: fall COMPARISON: No relevant comparison available. FINDINGS: RIGHT FINDINGS: BONES: No acute fracture or dislocation. 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 No visible soft tissue swelling. OTHER: Vascular calcifications LEFT FINDINGS: BONES: No acute fracture or dislocation. 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 No visible soft tissue swelling. OTHER: Vascular calcifications XR/XR knee TEMITOPE 3V IMPRESSION: RIGHT CONCLUSION: No acute fracture LEFT CONCLUSION: No acute fracture Electronically authenticated by: PINA GOMEZ Date: 08/06/2023 11:14
--- NOTE | 2023-08-06 09:23 | XR_ITS ---
The [address] [address] Patient Name: JAMES POPE MRN: [id number] date: 1950 Sex: M Assigned Patient Location: ER Current Patient Location: ER Accession/Order Number: [id number] Exam Date: 08/06/2023 09:55 Report Date: 08/06/2023 11:11 At the request of: SHIRIN ANGELES Procedure: XR hip LT min 2V PROCEDURE: XR hip LT min 2V COMPARISON: None. HISTORY: fall FINDINGS: BONES:No fracture, acute abnormality, or significant arthropathy. SOFT TISSUES:Negative. No visible soft tissue swelling. EFFUSION:None visible. OTHER: Extensive atherosclerosis XR/XR hip LT min 2V IMPRESSION: No acute fracture Electronically authenticated by: PINA GOMEZ Date: 08/06/2023 11:11
--- NOTE | 2023-08-06 09:24 | CT_ITS ---
The [address] [address] Patient Name: JAMES POPE MRN: [id number] date: 1950 Sex: M Assigned Patient Location: ER Current Patient Location: ED.MAIN Accession/Order Number: [id number] Exam Date: 08/06/2023 10:15 Report Date: 08/06/2023 11:09 At the request of: SHIRIN ANGELES Procedure: CT head/brain wo con HEAD CT WITHOUT CONTRAST: 08/06/2023 10:15 AM EDT Clinical Data: fall Comparison: 08/02/2023 Unenhanced axial data from base to vertex. INTRA-AXIAL: No acute hemorrhage. No acute infarction is evident. 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 Again, modest periventricular white matter disease. EXTRA-AXIAL: No acute hemorrhage. No focal fluid collection. BRAIN VOLUME: No change. Again, cerebral atrophy. VENTRICLES: Again aspects are mildly to modestly prominent but not out of proportion to white matter disease and atrophy. PARANASAL SINUSES: No air-fluid levels in the included aspects. MASTOIDS: Clear. CALVARIUM: No acute finding. EXTRACALVARIAL: Slight soft tissue prominence left frontal region probably represents a wound seen clinically. The underlying calvarium is intact. CT/CT head/brain wo con IMPRESSION: 1. No evidence of acute intracranial process on this unenhanced study as described. 2. Probable scalp injury left frontal but clinical correlation is needed All CT scans at this facility use dose modulation, iterative reconstruction, and/or weight based dosing when appropriate to reduce radiation dose to as low as reasonably achievable. Electronically authenticated by: DOMENIC VELASQUEZ Date: 08/06/2023 11:09
--- NOTE | 2023-08-06 09:24 | XR_ITS ---
The [address] [address] Patient Name: JAMES POPE MRN: [id number] date: 1950 Sex: M Assigned Patient Location: ER Current Patient Location: ER Accession/Order Number: [id number] Exam Date: 08/06/2023 09:55 Report Date: 08/06/2023 11:13 At the request of: SHIRIN ANGELES Procedure: XR chest 1V EXAMINATION: XR chest 1V HISTORY: fall COMPARISON: 08/02/2023 TECHNIQUE: Portable FINDINGS: LUNGS: No significant pulmonary parenchymal abnormalities. VASCULATURE: No increased pulmonary vasculature. PLEURA: No pneumothorax, effusion, or pleural thickening. CARDIAC: No cardiomegaly or cardiac silhouette abnormality. MEDIASTINUM: No visible mass or adenopathy. Median sternotomy wires BONES: No fracture or visible bone lesion. Degenerative spondylosis OTHER: Negative. XR/XR chest 1V IMPRESSION: No acute abnormality Electronically authenticated by: PINA GOMEZ Date: 08/06/2023 11:13
--- NOTE | 2023-08-06 09:26 | ED.GENADUL1 ---
HPI HPI - General Adult General Chief complaint: Fall Stated complaint: FALL Time Seen by Provider: 08/06/23 09:16 Source: patient Mode of arrival: ambulance Limitations: no limitations History of Present Illness HPI narrative: 73-year-old male presents for injuries to his left hip both knees and head. He apparently slipped out of bed and caused these injuries sometime during the night. He laid on the floor for perhaps a few hours. His found him and she called the paramedics and they transported him here. He was noted to have abrasions to both knees and the left side of his head and complains of pain to the left hip. No shortness of breath or abdominal pain or neck pain. He has not had a tetanus shot for an extended period of time and this is being updated today. Related Data Home Medications ?Medication ?Instructions ?Recorded ?Confirmed aspirin 81 mg tablet,delayed 81 mg PO DAILY 11/20/22 08/06/23 release (Adult Aspirin Regimen) metformin 500 mg tablet 1,000 mg PO BIDWM 11/20/22 08/06/23 rosuvastatin 20 mg tablet 20 mg PO DAILY 11/20/22 08/06/23 quetiapine 25 mg tablet 25 mg PO .QHS 08/02/23 08/06/23 Allergies Allergy/AdvReac Type Severity Reaction Status Date / Time No Known Drug Allergies Allergy Verified 11/20/22 10:09 Opioid HPI Opioid Management Most Recent Opioid Data: Last Pain Scale 3 08/06/23 09:25 Last Pain Intensity 0 05/24/23 11:40 Last Pain Assessment 08/04/23 10:00 Last ORT Total Score 1 08/02/23 03:57 Last ORT Risk Category Low Risk 08/02/23 03:57 Review of Systems ROS Narrative A ten point review of systems is negative except as noted above. [facility] Medical History (Updated 08/06/23 @ 11:42 by Micheal Diane MD) Type 2 diabetes mellitus ?E11.9 - Type 2 diabetes mellitus without complications (ICD-10) Chronic vertigo ?R42 - Dizziness and giddiness (ICD-10) Dementia ?F03.90 - Unspecified dementia, unspecified severity, without behavioral disturbance, psychotic disturbance, mood disturbance, and anxiety (ICD-10) HLD (hyperlipidemia) ?E78.5 - Hyperlipidemia, unspecified (ICD-10) HTN (hypertension) ?I10 - Essential (primary) hypertension (ICD-10) Vertigo ?R42 - Dizziness and giddiness (ICD-10) Tremor ?R25.1 - Tremor, unspecified (ICD-10) CAD (coronary artery disease), [place] coronary artery ?I25.10 - Atherosclerotic heart disease of [place] coronary artery without angina pectoris (ICD-10) Chest pain ?R07.9 - Chest pain, unspecified (ICD-10) Visual hallucinations ?R44.1 - Visual hallucinations (ICD-10) Vision loss, bilateral ?H54.3 - Unqualified visual loss, both eyes (ICD-10) Surgical History (Updated 05/23/23 @ 15:16 by Tasneem Herrera RN) Hx of CABG ?Z95.1 - Presence of aortocoronary bypass graft (ICD-10) Social History (Updated 08/02/23 @ 04:37 by Trudy Choi) Within the past year, how often did you have a drink containing alcohol: never Score interpretation: A score less than 4 is consistent with normal alcohol consumption. Smoking status: Current every day smoker Nicotine containing products detail: 1 pack daily Non-prescribed substance use: denies use Highest level of school completed/degree received: Associate degree: academic program Are you now , , , , never or living with a partner: In a typical week, how many times do you talk on the telephone with family, friends, or neighbors: twice per week How often do you get together with friends or relatives: once per week Little interest or pleasure in doing things: not at all Feeling down, depressed, or hopeless: not at all Feel stressed/tense/nervous/anxious/difficulty sleeping: not at all Do you think of yourself as: straight/heterosexual Gender Identity: male Exam Narrative Exam Narrative: Nurses note and vital signs reviewed and patient is not hypoxic. General: The patient appears well and in no apparent distress. Patient is resting comfortably on cart. Skin: Warm, dry, no pallor noted. There is no rash noted. Head: Normocephalic, abrasions present on the left side of his scalp. He has no C-spine tenderness. Eye: Normal conjunctiva, no drainage Ears, Nose, Mouth, and Throat: oral mucosa is moist. Nares patent. Cardiovascular: Regular Rate and Rhythm Respiratory: Patient is in no distress, no accessory muscle use, lungs are clear to auscultation, no wheezing, rales or rhonchi Back: non-tender, no CVA tenderness bilaterally to percussion. GI: Soft and nontender Musculoskeletal: Tenderness present in the left hip without any leg shortening. He has abrasions to both knees. No tenderness in his feet or ankles. Neurological: Awake and alert Psychiatric: Cooperative Constitutional Vital Signs, click to edit/add: Last Vital Signs Temp 98.4 F 08/06/23 09:11 Pulse 84 08/06/23 11:10 Resp 26 H 08/06/23 11:10 BP 156/80 H 08/06/23 11:00 Pulse Ox 97 08/06/23 11:10 O2 Del Method Room Air 08/06/23 09:25 Course Vital Signs Vital signs: Vital Signs Temperature 98.4 F 08/06/23 09:11 Pulse Rate 92 H 08/06/23 09:11 Respiratory Rate 20 08/06/23 09:11 Blood Pressure 158/71 H 08/06/23 09:11 Pulse Oximetry 99 08/06/23 09:11 Oxygen Delivery Method Room Air 08/06/23 09:11 Temperature 98.4 F 08/06/23 09:11 Pulse Rate 84 08/06/23 11:10 Respiratory Rate 26 H 08/06/23 11:10 Blood Pressure 156/80 H 08/06/23 11:00 Pulse Oximetry 97 08/06/23 11:10 Oxygen Delivery Method Room Air 08/06/23 09:25 Medical Decision Making MDM Narrative Medical decision making narrative: Radiographs are all negative. He was identified to have rhabdomyolysis with preserved renal function. He was given IV fluids and tetanus was updated and he is being admitted. Findings are discussed with the patient and his . Differential Diagnosis Differential Diagnosis: Intracranial hemorrhage, hip fracture, knee fracture, abrasions Lab Data Lab results reviewed: Yes I reviewed the patient's lab results Labs: Lab Results 08/06/23 08/06/23 Range/Units 09:42 11:26 WBC 12.0 H (4.0-11.0) 10^3/uL RBC 4.95 (4.70-6.10) 10^6/uL Hgb 16.4 (14.0-18.0) g/dL Hct 46.7 (42.0-54.0) % MCV 94.3 H (80.0-94.0) fL MCH 33.1 (25.9-34.0) pg MCHC 35.1 (29.9-35.2) g/dL RDW 11.9 (11.0-15.0) % Plt Count 125 L (150-450) 10^3/uL MPV 10.3 (9.5-13.5) fL Seg Neuts % (Manual) 87.0 Band Neutrophils % 7.0 H (0-5) % Lymphocytes % (Manual) 2.0 L (20.5-60.0) % Monocytes % (Manual) 4.0 (1.7-12.0) % Eosinophils % (Manual) 0.0 L (0.9-7.0) % Basophils % (Manual) 0.0 L (0.2-2.0) % Neutrophils # (Manual) 10.44 H (1.4-6.5) 10^3/uL Band Neutrophils # 0.8 H (0.0-0.3) 10^3/uL Lymphocytes # (Manual) 0.24 L (1.20-3.80) 10^3/uL Monocytes # (Manual) 0.48 (0.30-0.80) 10^3/uL Eosinophils # (Manual) 0.00 (0.00-0.70) 10^3/uL Basophils # (Manual) 0.00 (0.00-0.10) 10^3/uL Sodium 132 L (136-145) mmol/L Potassium 3.9 (3.5-5.1) mmol/L Chloride 100 (98-107) mmol/L Carbon Dioxide 20.9 L (21.0-32.0) mmol/L Anion Gap 15.0 BUN 15.0 (7.0-18.0) mg/dL Creatinine 1.22 (0.70-1.30) mg/dL Est GFR ( Amer) >60 (>=60) Est GFR (Non-Af Amer) 58 L (>=60) BUN/Creatinine Ratio 12.3 Glucose 206 H (74-106) mg/dL Calcium 10.6 H (8.5-10.1) mg/dL Total Creatine Kinase 7074 H* (39-308) U/L Myoglobin 96575 H* (16-96) ng/mL Urine Color Yellow (YELLOW) Urine Clarity Clear (CLEAR) Urine pH 5.5 (5.0-9.0) Ur Specific Iron 1.025 (1.005-1.025) Urine Protein >=300 A (NEG/TRACE) mg/dL Urine Glucose (UA) 250 A (NEGATIVE) mg/dL Urine Ketones 15 A (NEGATIVE) mg/dL Urine Occult Blood Large A (NEGATIVE) Urine Nitrite Negative (NEGATIVE) Urine Bilirubin Negative (NEGATIVE) Urine Urobilinogen 0.2 (0.2-1.0) EU/dL Ur Leukocyte Esterase Negative (NEGATIVE) Imaging Data CT scan - head: Radiologist's impression: ITS Impressions Hip X-Ray 08/06/23 09:23 IMPRESSION: No acute fracture Electronically authenticated by: PINA GOMEZ Date: 08/06/2023 11:11 Knee X-Ray 08/06/23 09:23 IMPRESSION: RIGHT CONCLUSION: No acute fracture LEFT CONCLUSION: No acute fracture Electronically authenticated by: PINA GOMEZ Date: 08/06/2023 11:14 Chest X-Ray 08/06/23 09:24 IMPRESSION: No acute abnormality Electronically authenticated by: PINA GOMEZ Date: 08/06/2023 11:[address] 08/06/23 09:24 IMPRESSION: 1. No evidence of acute intracranial process on this unenhanced study as described. 2. Probable scalp injury left frontal but clinical correlation is needed All CT scans at this facility use dose modulation, iterative reconstruction, and/or weight based dosing when appropriate to reduce radiation dose to as low as reasonably achievable. Electronically authenticated by: DOMENIC VELASQUEZ Date: 08/06/2023 11:09 ECG Data Attestation: I personally reviewed and interpreted this ECG as follows: (EKG on my interpretation shows sinus rhythm with first degree block and a right bundle branch block.) Discharge Plan Discharge Chief Complaint: Fall Clinical Impression: Rhabdomyolysis, Multiple abrasions, Fall Patient Disposition: Admitted As Inpatient Time of Disposition Decision: 11:42 Condition: Fair
[2023-08-06] MEDS: ADACEL DIPH,PERTUSS(ACELL),TET VAC/PF 0.5 ML ADULT SYRINGE IM (09:45)
[2023-08-06 10:08] LABS: Hematocrit 46.7 % (42.0-54.0); Hemoglobin 16.4 g/dL (14.0-18.0); Mean Corpuscular HGB Conc 35.1 g/dL (29.9-35.2); Mean Corpuscular Hemoglobin 33.1 pg (25.9-34.0); Mean Corpuscular Volume 94.3 fL (80.0-94.0); Mean Platelet Volume 10.3 fL (9.5-13.5); Platelet Count 125 10^3/uL (150-450); Red Blood Count 4.95 10^6/uL (4.70-6.10); Red Cell Distribution Width 11.9 % (11.0-15.0)
[2023-08-06 10:26] LABS: Band Neutrophils Absolute 0.8 10^3/uL (0.0-0.3); Lymphocytes Absolute Manual 0.24 10^3/uL (1.20-3.80); Monocytes Absolute Manual 0.48 10^3/uL (0.30-0.80); Segmented Neut Absolute Manual 10.44 10^3/uL (1.4-6.5)
[2023-08-06 10:37] LABS: BUN Creatinine Ratio 12.3; Calcium 10.6 mg/dL (8.5-10.1); Carbon Dioxide 20.9 mmol/L (21.0-32.0); Chloride 100 mmol/L (98-107); Estimated GFR (African America >60 (>=60); Estimated GFR (Non-African Ame 58 (>=60); Glucose 206 mg/dL (74-106); Potassium 3.9 mmol/L (3.5-5.1); Sodium 132 mmol/L (136-145)
[2023-08-06 10:39] LABS: Myoglobin 59904 ng/mL (16-96)
[2023-08-06 11:11] LABS: Creatine Kinase 7074 U/L (39-308)
[2023-08-06] MEDS: 0.9 % SODIUM CHLORIDE 1,000 ML 125 ML IV (11:16)
[2023-08-06 11:33] LABS: Bilirubin Urine NEGATIVE (NEGATIVE); Blood Urine LARGE (NEGATIVE); Clarity Urine CLEAR (CLEAR); Color Urine YELLOW (YELLOW); Glucose Urine UA 250 mg/dL (NEGATIVE); Ketones Urine 15 mg/dL (NEGATIVE); Leukocyte Esterase Urine NEGATIVE (NEGATIVE); Nitrite Urine NEGATIVE (NEGATIVE); Protein Urine >=300 mg/dL (NEG/TRACE); Specific Gravity Urine 1.025 (1.005-1.025); Urobilinogen Urine 0.2 EU/dL (0.2-1.0); pH Urine 5.5 (5.0-9.0)
[2023-08-06 11:48] LABS: Bacteria Urine TRACE #/HPF (NONE SEEN); Cast Seen? NONE SEEN #/LPF (NONE SEEN); Crystals Seen? None Seen #/HPF (None Seen); Mucus Urine NONE SEEN (NONE SEEN); Squamous Epithelial Cell Urine RARE #/LPF (NONE/RARE); WBC Urine NONE SEEN #/HPF (NONE SEEN)
--- NOTE | 2023-08-06 12:12 | PM.HP ---
HPI H&P: HPI History of Present Illness Chief complaint: FALL/MULTIPLE ABRASIONS/RHABDOMYOLYSIS Narrative: Patient is a 73 y.o male with history of hyperlipidemia, dementia, non insulin dept type 2 diabetes, HTN, CAD with prior bypass surgery. Patient reports that he fell last night around 3am and fell in the bedroom. He has a left head/scalp abrasion and left knee abrasion. He is not sure how long he was down. I spoke with his , Leydi on the phone and she has seen a decline about 2 months, more weak and difficult to move around rooms and up to the restroom. She thinks that maybe the Seroquel is making him feel off and last night was the first night he received it. In the ER was found to have elevated CK levels, treated for Rhabdomyolysis and was admitted for this. He sees Dr. Brown regularly. His imaging was negative for fractures, CT head showed no acute bleeding. Opioid HPI Opioid Management Most Recent Opioid Data: Last Pain Scale 3 08/06/23 09:25 Last Pain Intensity 0 05/24/23 11:40 Last Pain Assessment 08/06/23 15:04 Last ORT Total Score 1 08/02/23 03:57 Last ORT Risk Category Low Risk 08/02/23 03:57 Review of Systems ROS Narrative ROS: a complete review of systems were reviewed with patient and are positive as below or listed in History of Chief Complaint. General: no fever, chills, night sweats Head: no headache, trauma, visual changes, nausea or vomiting Skin: no reported rashes, itching or sores Eyes: no blurriness of vision Ears: no reported hearing loss, vertigo, earache, or tinnitus Throat: no sore throat, hoarseness, swelling of neck, or tongue pain Heart: no chest pain Lungs: no shortness of breath or cough GI: no diarrhea or vomiting/nausea Urinary: no urinary urgency, frequency or pain Neuro: no numbness or tingling, just weakness HEM: no bleeding issues or bruising ENDO: no thyroid problems Psych: no anxiety or depression PFSH REPLACED BY [facility] Medical History Type 2 diabetes mellitus ?E11.9 - Type 2 diabetes mellitus without complications (ICD-10) Chronic vertigo ?R42 - Dizziness and giddiness (ICD-10) Dementia ?F03.90 - Unspecified dementia, unspecified severity, without behavioral disturbance, psychotic disturbance, mood disturbance, and anxiety (ICD-10) HLD (hyperlipidemia) ?E78.5 - Hyperlipidemia, unspecified (ICD-10) HTN (hypertension) ?I10 - Essential (primary) hypertension (ICD-10) Vertigo ?R42 - Dizziness and giddiness (ICD-10) Tremor ?R25.1 - Tremor, unspecified (ICD-10) CAD (coronary artery disease), [place] coronary artery ?I25.10 - Atherosclerotic heart disease of [place] coronary artery without angina pectoris (ICD-10) Chest pain ?R07.9 - Chest pain, unspecified (ICD-10) Visual hallucinations ?R44.1 - Visual hallucinations (ICD-10) Vision loss, bilateral ?H54.3 - Unqualified visual loss, both eyes (ICD-10) Surgical History Hx of CABG ?Z95.1 - Presence of aortocoronary bypass graft (ICD-10) Social History Within the past year, how often did you have a drink containing alcohol: never Score interpretation: A score less than 4 is consistent with normal alcohol consumption. Smoking status: Current every day smoker Nicotine containing products detail: 1 pack daily Non-prescribed substance use: denies use Highest level of school completed/degree received: Associate degree: occupational, technical, vocational program Are you now , , , , never or living with a partner: In a typical week, how many times do you talk on the telephone with family, friends, or neighbors: twice per week How often do you get together with friends or relatives: once per week Little interest or pleasure in doing things: not at all Feeling down, depressed, or hopeless: not at all Feel stressed/tense/nervous/anxious/difficulty sleeping: not at all Do you think of yourself as: straight/heterosexual Gender Identity: male Meds Home Medications and Allergies Home Medications ?Medication ?Instructions ?Recorded ?Confirmed ?Type aspirin 81 mg tablet,delayed 81 mg PO DAILY 11/20/22 08/06/23 History release (Adult Aspirin Regimen) metformin 500 mg tablet 1,000 mg PO BIDWM 11/20/22 08/06/23 History rosuvastatin 20 mg tablet 20 mg PO DAILY 11/20/22 08/06/23 History quetiapine 25 mg tablet 25 mg PO .QHS 08/02/23 08/06/23 History aripiprazole 5 mg tablet 5 mg PO .QHS 08/06/23 08/06/23 History lisinopril 10 1 tab PO .QD 08/06/23 08/06/23 History mg-hydrochlorothiazide 12.5 mg tablet sodium chloride 1 gram tablet 1,000 mg PO TID 08/06/23 08/06/23 History Allergies Allergy/AdvReac Type Severity Reaction Status Date / Time No Known Drug Allergies Allergy Verified 11/20/22 10:09 Exam Narrative Exam Narrative: General: Patient is alert, and oriented to person, place and time with normal affect, proper hygiene; mumbles when speaking so difficult to understand Skin: left scalp abrasion and left knee abrasion. Head: atraumatic, acephalic Eyes: PERRLA, no nystagmus present, conjunctiva clear, no scleral icterus Ears: normal gross auditory acuity Nose: symmetric, no discharge, no maxillary or frontal sinus tenderness Neck: no masses palpated, normal thyroid Heart: Normal rate and rhythm, no murmurs/rubs/gallops Lungs: no audible wheezes, crackles and normal breath sounds all lung elias Abdomen: Normal audible bowel sounds, no distension, No palpable masses, no organomegaly, no rebound/guarding/ or rigidity Musculoskeletal: no swelling bilateral lower extremities Neuro: CN II-X grossly intact Constitutional Vital Signs, click to edit/add: Last Vital Signs Temp 98.4 F 08/06/23 09:11 Pulse 84 08/06/23 11:10 Resp 26 H 08/06/23 11:10 BP 156/80 H 08/06/23 11:00 Pulse Ox 97 08/06/23 11:10 O2 Del Method Room Air 08/06/23 09:25 Results Labs Labs: Short CBC 08/06/23 Range/Units 09:42 WBC 12.0 H (4.0-11.0) 10^3/uL Hgb 16.4 (14.0-18.0) g/dL Hct 46.7 (42.0-54.0) % Plt Count 125 L (150-450) 10^3/uL BMP 08/06/23 09:42 Sodium 132 L Potassium 3.9 Chloride 100 Carbon Dioxide 20.9 L BUN 15.0 Creatinine 1.22 Glucose 206 H Calcium 10.6 H Cardiac Enzymes 08/06/23 Range/Units 09:42 Total Creatine Kinase 7074 H* (39-308) U/L Urine 08/06/23 Range/Units 11:26 Urine Color Yellow (YELLOW) Urine Clarity Clear (CLEAR) Urine pH 5.5 (5.0-9.0) Ur Specific [place] 1.025 (1.005-1.025) Urine Protein >=300 A (NEG/TRACE) mg/dL Urine Glucose (UA) 250 A (NEGATIVE) mg/dL Assessment and Plan Assessment and Plan (1) Rhabdomyolysis: Assessment and Plan: elevated ck levels, continue with IVF. hold statin. Qualifiers: Rhabdomyolysis type: traumatic Encounter type: initial encounter Qualified Code(s): T79.6XXA - Traumatic ischemia of muscle, initial encounter (2) Generalized weakness: Assessment and Plan: hold seroquel. PT/OT evaluation (3) Multiple abrasions: (4) Fall: Assessment and Plan: Xray's and CT head had no acute findings. Qualifiers: Encounter type: initial encounter Qualified Code(s): W19.XXXA - Unspecified fall, initial encounter (5) Type 2 diabetes mellitus: Assessment and Plan: SSI as needed, accuchecks Qualifiers: Diabetes mellitus half-way insulin use: without watcher [employer] use Diabetes mellitus complication status: without complication Qualified Code(s): E11.9 - Type 2 diabetes mellitus without complications (6) Dementia: Qualifiers: Dementia type: Alzheimer's Alzheimer's disease onset: late onset Dementia severity: moderate Dementia behavioral or psychological symptom: with psychotic disturbance Qualified Code(s): G30.1 - Alzheimer's disease with late onset; F02.B2 - Dementia in other diseases classified elsewhere, moderate, with psychotic disturbance (7) HLD (hyperlipidemia): Assessment and Plan: hold statin Qualifiers: Hyperlipidemia type: unspecified Qualified Code(s): E78.5 - Hyperlipidemia, unspecified (8) HTN (hypertension): Assessment and Plan: monitor BP Qualifiers: Hypertension type: primary hypertension Qualified Code(s): I10 - Essential (primary) hypertension (9) CAD (coronary artery disease), [place] coronary artery: Assessment and Plan: continue aspirin Qualifiers: [place] vs. transplanted heart: [place] heart Associated angina: without angina Qualified Code(s): I25.10 - Atherosclerotic heart disease of [place] coronary artery without angina pectoris Plan Will re-address code status once patient is rested, reports that he should be able to answer that question SCD's and compression stockings for dvt prophylaxis given recent fall and head trauma Patient is in inpatient status and is expected to cross 2 midnights for medically necessary care.
--- OUTSIDE RECORDS SUMMARY | 2023-08-06 12:39 | XMS_ITS | CCD ---
Author Organization [facility] Care Team Providers Care Project Development Engineer Name Role Phone CAREY TREVIÑO Unavailable Unavailable [...] Consulting Unavailable INPATIENT, TELENEUROLOGY Consulting Unavail able SARBIJT OLIVERA Attending Unavailable ALGHOTHANI, KATHY Attending Unavailable ALGHOTHANI, KATHY Attending Unavailable NADERER, TERRANCE Attending Unavailable RUSHERKARINA Attending Unavailable NADERER, TERRANCE Attending Unavailable SHINE ELLISON Referring Unavailable NADERER, TERRANCE Primary Care Unavailable NADERER, TERRANCE Primary Care Unavailable SHINE ELLISON Referring Unavailable Allergies Allergy Classification Reported Allergen(s) Allergy Type Date of Onset Reaction(s) Facility (1 source) bee venom Drug allergy (disorder) [facility] Repository (1 source) Iodine (And Iodine Containting Drugs) Drug allergy (disorder) [facility] Repository Problems Active Problems Problem Classification Problem Date Documented Da te Episodic/Chronic Chronic obstructive pulmonary disease and bronchiectasis (2 sources) Chronic obstructive pulmonary disease, unspecified; 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: [Chronic obstructive pulmonary disease, unspecified] Onset: 01-23-2023 Chronic Coagulation and hemorrhagic disorders (1 source) Thrombocytopenia, unspecified; 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: [Thrombocytopenia, unspecified] Onset: 06-15-2017 Chronic Coronary atherosclerosis and other heart disease (3 sources) Atherosclerotic heart disease of [place] coronary artery without angina pectoris; 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: [Atherosclerotic heart disease of [place] coronary artery with unspecified angina pectoris] Onset: [...] Onset: 05-03-2022 Chronic Other aftercare (1 source) nursing home (current) use of aspirin; 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: [RE[employer] CURRENT USE OF ASPIRIN] Onset: 05-03-2022 Episodic Other aftercare (1 source) Other vermin exterminator (current) drug therapy; 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: [OTH [facility] CURRENT DRUG THERAPY] Onset: 05-03-2022 Episodic Other aftercare (1 source) nursing home (current) use of oral hypoglycemic drugs; 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: [[facility] USE ORAL HYPOGLYCEMIC DX] Onset: 05-03-2022 Episodic [...] Range Facility Office Visiton 06-02-2023 Follow-up visit [id number] James Barros 1950 M Date Provider Department Center 06/02/2023 KATHY FELICIANO Family History Problem Relation Age of Onset Heart attack Maternal Grandfather Family Status - Relation Status Age at Maternal Grandfather Level of Service:42042 MO OFFICE/OUTPATIENT ESTABLISHED MOD MDM 30 MIN Normal [facility] Office Visiton 01-23-2023 Follow-up visit [id number] James Barros Floresita 1950 M [facility] Provider Department Center 01/23/2023 [id number] PEREZ [facility] Family History Problem Relation Age of Onset Heart attack Maternal Grandfather Family Status - Relation Status Age at Maternal Grandfather Level of Service:49535 MO OFFICE/OUTPATIENT ESTABLISHED MOD MDM 30-39 MIN Normal [facility] Office Visiton 08-15-2022 Follow-up visit [id number] James Barros Floresita 1950 M Date Provider Department [facility] No family history on file Level of Service:77857 MO OFFICE/OUTPATIENT ESTABLISHED MOD MDM 30-39 MIN Reason for Visit and Comments: New Patient [632] Normal [facility] GLYCOHEMOGLOBIN A1Con 2022 ADA RECOMMENDATION SEE BELOW Normal [facility] Comment on above: Result Comment: ADA RECOMMENDED LIMIT 4.0 - 6.0 ADA THERAPEUTIC TARGET < 7.0 ACTION SUGGESTED > 7.0 Performed By: #### A 1C ####[address] Yilan Jean Glucose [Mass/Vol] 197 mg/dL Normal [facility] Comment on above: Performed By: #### A 1C ####[facility] [address] [address]Dr. Vipul Jean HbA1c (Bld) [Mass fraction] 8.5 % Critically high 4.5-6.2 [facility] Comment on above: Performed By: #### A 1C ####[facility] [address] [address]DrNoelle Jean AMYLASEon 05-01-2022 Amylase [Catalytic activity/Vol] 33 U/L Normal 25-115 [facility] Comment on above: Performed By: #### A MY, HSTROPN, LIPA, CMP #### [facility] [address] [place] [address] Dr. Vipul Jean CBC AUTO DIFFon 05-01-2022 BASO # 0.1 103/ul Normal 0.0-0.1 [facility] Comment on above: Performed By: #### C BC #### [facility] [address] [place] [address] Dr. Vipul Jean Basophils/100 WBC (Bld) 0.6 % Normal 0.2-2.0 [facility] Comment on above: Performed By: #### C BC #### [facility] [address] [place] [address] Dr. Vipul Jean EO # 0.1 103/ul Normal 0.0-0.7 [facility] Comment on above: Performed By: #### C BC #### [facility] [address] [place] [address] Dr. Vipul Jean Eosinophils/100 WBC (Bld) 1.4 % Normal 0.9-7.0 [facility] Comment on above: Performed By: #### C BC #### [facility] [address] [place] [address] Dr. Vipul Jean Erythrocyte distribution width (RBC) [Ratio] 12.2 % Normal 11.0-15.0 [facility] Comment on above: Performed By: #### C BC #### [facility] [address] [place] [address] Dr. Vipul Jean Hematocrit (Bld) [Volume fraction] 46.0 % Normal 42.0-54.0 [facility] Comment on above: Performed By: #### C BC #### [facility] [address] [place] [address] Dr. Vipul Jean Hemoglobin (Bld) [Mass/Vol] 16.7 g/dL Normal 14.0-18.0 [facility] Comment on above: Performed By: #### C BC #### [facility] [address] [place] [address] Dr. Vipul Jean IG # 0.04 10e3/ul Critically high 0.00-0.03 [facility] Comment on above: Performed By: #### C BC #### [facility] [address] [place] [address] Dr. Vipul Jean IG % 0.4 % Normal 0.0-0.5 [facility] Comment on above: Performed By: #### C BC #### [facility] [address] [place] [address] Dr. Vipul Jean LYMPH # 1.7 103/ul Normal 1.2-3.8 [facility] Comment on above: Performed By: #### C BC #### [facility] [address] [place] [address] Dr. Vipul Jean Lymphocytes/100 WBC (Bld) 18.7 % Critically low 20.5-60.0 [facility] Comment on above: Performed By: #### C BC #### [facility] [address] [place] [address] Dr. Vipul Jean MANUAL DIFF REQ NO Normal [facility] Comment on above: Performed By: #### C BC #### [facility] [address] [place] [address] Dr. Vipul Jean MCH (RBC) [Entitic mass] 33.3 pg Normal 25.9-34.0 [facility] Comment on above: Performed By: #### C BC #### [facility] [address] [address] [address] Vipul Jean MCHC (RBC) [Mass/Vol] 36.3 g/dL Critically high 29.9-35.2 [facility] Comment on above: Performed By: #### C BC #### [facility] [address] [place] [address] Dr. Vipul Jean MCV (RBC) [Entitic vol] 91.6 fL Normal 80.0-94.0 [facility] Comment on above: Performed By: #### C BC #### [facility] [address] [place] [address] Dr. Vipul Jean MONO # 0.6 103/ul Normal 0.3-0.8 [facility] Comment on above: Performed By: #### C BC #### [facility] [address] [place] [address] Dr. Vipul Jean Monocytes/100 WBC (Bld) 6.9 % Normal 1.7-12.0 [facility] Comment on above: Performed By: #### C BC #### [facility] [address] [place] [address] Dr. Vipul Jean NEUT # 6.5 103/ul Normal 1.4-6.5 [facility] Comment on above: Performed By: #### C BC #### [facility] [address] [place] [address] Dr. Vipul Jean Neutrophils/100 WBC (Bld) 72.0 % Normal 43.0-75.0 [facility] Comment on above: Performed By: #### C BC #### [facility] [address] [place] [address] Dr. Vipul Jean Platelet mean volume (Bld) [Entitic vol] 10.5 fL Normal 9.5-13.5 [facility] Comment on above: Performed By: #### C BC #### [facility] [address] [place] [address] Dr. Vipul Jean PLT 125 103/ul Critically low 150-450 [facility] Comment on above: Performed By: #### C BC #### [facility] [address] [place] [address] Dr. Vipul Jean RBC 5.02 106/ul Normal 4.70-6.10 [facility] Comment on above: Performed By: #### C BC #### [facility] [address] [address] [address] Vipul Jean WBC 9.0 103/ul Normal 4.0-11.0 [facility] Comment on above: Performed By: #### C BC #### [facility] [address] [address] ABD/PELVIS WO CONon [...] HOME MARX Date: 2022-05-01 15:31 Normal [facility] LIPASEon 05-01-2022 Lipase [Catalytic activity/Vol] 62.0 U/L Critically low 73.0-393.0 [facility] Comment on above: Performed By: #### A MY, HSTROPN, LIPA, CMP #### [facility] [address] [address] [address] Vipul Jean PROF 14(COMP METB)on 023 Albumin [Mass/Vol] 3.4 g/dL Normal 3.4-5.0 [facility] Comment on above: Performed By: #### A MY, HSTROPN, LIPA, CMP #### [facility] [address] [place] [address] Dr. Vipul Jean Albumin/Globulin [Mass ratio] 1.1 {ratio} Normal [facility] Comment on above: Performed By: #### A MY, HSTROPN, LIPA, CMP #### [facility] [address] [place] [address] Dr. Vipul Jean ALP [Catalytic activity/Vol] 93 U/L Normal 46-116 [facility] Comment on above: Performed By: #### A MY, HSTROPN, LIPA, CMP #### [facility] [address] [place] [address] Dr. Vipul Jean ALT [Catalytic activity/Vol] 38 U/L Normal 16-63 [facility] Comment on above: Performed By: #### A NICHOL, HSTROPN, LIPA, CMP #### [facility] [address] [place] [address] Dr. Vipul Jean Anion gap [Moles/Vol] 10.6 mmol/L Normal [facility] Comment on above: Performed By: #### A NICHOL, HSTROPN, LIPA, CMP #### [facility] [address] [place] [address] Dr. Vipul Jean AST [Catalytic activity/Vol] 29 U/L Normal 15-37 [facility] Comment on above: Performed By: #### A NICHOL, HSTROPN, LIPA, CMP #### [facility] [address] [place] [address] Dr. Vipul Jean Bilirubin [Mass/Vol] 0.6 mg/dL Normal 0.2-1.0 [facility] Comment on above: Performed By: #### A MY, HSTROPN, LIPA, CMP #### [facility] [address] [place] [address] Dr. Vipul Jean Calcium [Mass/Vol] 10.0 mg/dL Normal 8.5-10.1 [facility] Comment on above: Performed By: #### A MY, HSTROPN, LIPA, CMP #### [facility] [address] [place] [address] Dr. Vipul Jean Chloride [Moles/Vol] 105 mmol/L Normal 98-107 [facility] Comment on above: Performed By: #### A MY, HSTROPN, LIPA, CMP #### [facility] [address] [place] [address] Dr. Vipul Jean CO2 [Moles/Vol] 24.6 mmol/L Normal 21.0-32.0 [facility] Comment on above: Performed By: #### A MY, HSTROPN, LIPA, CMP #### [facility] [address] [place] [address] Dr. Vipul Jean Creatinine [Mass/Vol] 1.08 mg/dL Normal 0.70-1.30 [facility] Comment on above: Performed By: #### A MY, HSTROPN, LIPA, CMP #### [facility] [address] [place] [address] Dr. Vipul Jean EGFR-AF COLOMBIAN >60 Normal >=60 [facility] Comment on above: Performed By: #### A MY, HSTROPN, LIPA, CMP #### [facility] [address] [place] [address] Dr. Vipul Jean EGFR-NON AF [place]OMBIAN >60 Normal >=60 [facility] Comment on above: Performed By: #### A MY, HSTROPN, LIPA, CMP #### [facility] [address] [place] [address] Dr. Vipul Jean Globulin (S) [Mass/Vol] 3.2 g/dL Normal [facility] Comment on above: Performed By: #### A MY, HSTROPN, LIPA, CMP #### [facility] [address] [place] [address] Dr. Vipul Jean Glucose [Mass/Vol] 215 mg/dL Critically high 74-106 [facility] Comment on above: Performed By: #### A MY, HSTROPN, LIPA, CMP #### [facility] [address] [address] [address] Vipul Jean Potassium [Moles/Vol] 4.2 mmol/L Normal 3.5-5.1 [facility] Comment on above: Performed By: #### A MY, HSTROPN, LIPA, CMP #### [facility] [address] [address] [address] Vipul Jean Protein [Mass/Vol] 6.6 g/dL Normal 6.4-8.2 [facility] Comment on above: Performed By: #### A MY, HSTROPN, LIPA, CMP #### [facility] [address] [address] [address] Vipul Jean Sodium [Moles/Vol] 136 mmol/L Normal 136-145 [facility] Comment on above: Performed By: #### A MY, HSTROPN, LIPA, CMP #### [facility] [address] [place] [address] Dr. Vipul Jean Urea nitrogen [Mass/Vol] 16.0 mg/dL Normal 7.0-18.0 [facility] Comment on above: Performed By: #### A MY, HSTROPN, LIPA, CMP #### [facility] [address] [place] [address] Dr. Vipul Jean Urea nitrogen/Creatinine [Mass ratio] 14.8 mg/mg Normal [facility] Comment on above: Performed By: #### A MY, HSTROPN, LIPA, CMP #### [facility] [address] [address] [address] Vipul Jean TROPONIN, HIGH SENSITIVITYon 05-01-2022 HSTROP 21.4 pg/mL Normal 4.0-76.1 [facility] Comment on above: Result Comment: CUT- OFF POINTS HAVE BEEN ESTABLISHED BASED ON THE FOURTH UNIVERSAL DEFINITIONS OF MYOCARDIAL INFARCTION. THE UPPER REFERENCE LIMIT (URL) OF TROPONIN, DEFINED THE 99TH PERCENTILE OF cTnI DISTRIBUTION IN A REFERENCE POPULATION, HAS BEEN CONFIRMED THE DECISION THRESHOLD FOR [place] DIAGNOSIS. Performed By: #### A MY, HSTROPN, LIPA, CMP #### [facility] [address] [place] [address] Dr. Vipul Jean CBC AUTO DIFFon 02-14-2022 BASO # 0.1 103/ul Normal 0.0-0.1 [facility] Comment on above: Performed By: #### C BC #### [facility] [address] [place] [address] Dr. Vipul Jean Basophils/100 WBC (Bld) 0.6 % Normal 0.2-2.0 [facility] Comment on above: Performed By: #### C BC #### [facility] [address] [place] [address] Dr. Vipul Jean EO # 0.1 103/ul Normal 0.0-0.7 [facility] Comment on above: Performed By: #### C BC #### [facility] [address] [place] [address] Dr. Vipul Jean Eosinophils/100 WBC (Bld) 1.6 % Normal 0.9-7.0 [facility] Comment on above: Performed By: #### C BC #### [facility] [address] [place] [address] Dr. Vipul Jean Erythrocyte distribution width (RBC) [Ratio] 12.1 % Normal 11.0-15.0 [facility] Comment on above: Performed By: #### C BC #### [facility] [address] [place] [address] Dr. Vipul Jean Hematocrit (Bld) [Volume fraction] 47.9 % Normal 42.0-54.0 [facility] Comment on above: Performed By: #### C BC #### [facility] [address] [place] [address] Dr. Vipul Jean Hemoglobin (Bld) [Mass/Vol] 17.1 g/dL Normal 14.0-18.0 [facility] Comment on above: Performed By: #### C BC #### [facility] [address] [place] [address] Dr. Vipul Jean IG # 0.03 10e3/ul Normal 0.00-0.03 [facility] Comment on above: Performed By: #### C BC #### [facility] [address] [place] [address] Dr. Vipul Jean IG % 0.4 % Normal 0.0-0.5 [facility] Comment on above: Performed By: #### C BC #### [facility] [address] [place] [address] Dr. Vipul Jean LYMPH # 1.8 103/ul Normal 1.2-3.8 [facility] Comment on above: Performed By: #### C BC #### [facility] [address] [place] [address] Dr. Vipul Jean Lymphocytes/100 WBC (Bld) 22.4 % Normal 20.5-60.0 [facility] Comment on above: Performed By: #### C BC #### [facility] [address] [place] [address] Dr. Vipul Jean MANUAL DIFF REQ NO Normal [facility] Comment on above: Performed By: #### C BC #### [facility] [address] [place] [address] Dr. Vipul Jean MCH (RBC) [Entitic mass] 33.0 pg Normal 25.9-34.0 [facility] Comment on above: Performed By: #### C BC #### [facility] [address] [place] [address] Dr. Vipul Jean MCHC (RBC) [Mass/Vol] 35.7 g/dL Critically high 29.9-35.2 [facility] Comment on above: Performed By: #### C BC #### [facility] [address] [place] [address] Dr. Vipul Jean MCV (RBC) [Entitic vol] 92.5 fL Normal 80.0-94.0 [facility] Comment on above: Performed By: #### C BC #### [facility] [address] [place] [address] Dr. Vipul Jean MONO # 0.6 103/ul Normal 0.3-0.8 [facility] Comment on above: Performed By: #### C BC #### [facility] [address] [place] [address] Dr. Vipul Jean Monocytes/100 WBC (Bld) 7.0 % Normal 1.7-12.0 [facility] Comment on above: Performed By: #### C BC #### [facility] [address] [place] [address] Dr. Vipul Jean NEUT # 5.5 103/ul Normal 1.4-6.5 [facility] Comment on above: Performed By: #### C BC #### [facility] [address] [place] [address] Dr. Vipul Jean Neutrophils/100 WBC (Bld) 68.0 % Normal 43.0-75.0 [facility] Comment on above: Performed By: #### C BC #### [facility] [address] [place] [address] Dr. Vipul Jean Platelet mean volume (Bld) [Entitic vol] 11.0 fL Normal 9.5-13.5 [facility] Comment on above: Performed By: #### C BC #### [facility] [address] [place] [address] Dr. Vipul Jean PLT 101 103/ul Critically low 150-450 [facility] Comment on above: Performed By: #### C BC #### [facility] [address] [place] [address] Dr. Vipul Jean RBC 5.18 106/ul Normal 4.70-6.10 [facility] Comment on above: Performed By: #### C BC #### [facility] [address] [place] [address] Dr. Vipul Jean WBC 8.1 103/ul Normal 4.0-11.0 [facility] Comment on above: Performed By: #### C BC #### [facility] [address] [place] [address] Dr. Vipul Jean CRPon 02-14-2022 CRP [Mass/Vol] mg/L Normal <=1.0 [facility] Comment on above: Performed By: #### C RP, URIC #### [facility] [address] [place] [address] Dr. Vipul Jean URIC ACID SERUMon 02-14-2022 Urate [Mass/Vol] 4.4 mg/dL Normal 3.5-7.2 [facility] Comment on above: Performed By: #### C RP, URIC #### [facility] [address] [address] [address] Vipul Jean XR ANKLE LT MIN [...] ALICIA Date: 2022-02-14 15:05 Normal [facility] CNOVSPon 06-15-2017 CNOVSP Visit (SP) Office ([facility]) Ko BARROSSIMI Floresita ([id number]) 1950 MDate Time Provider Department06/15/17 3:45 PM [...] ARTERIAL GRAFT(S)- CHOLECYSTECTOMY HX- CIRCUMCISION 06/06/2017 Dr. Crar HistorySubstance Use Topics- Smoking status: Current Some [...] kg (204 lb 9.6 oz) BMI 33.02 kg/y6Whnrsyi Appearance: alert and oriented, appearing in no [...] Q53.10See Cruz Treviño MDReferring Provider: AUDREY OSHEA [[id number]]Allergies As of Date: 06/15/2017(No Known Allergies)Date Reviewed: 06/15/2017Reviewed by: Liliane Molina - Fully AssessedReason for Visit: low platelets [Other] Cmt: new patient consultationPrimary Visit Diagnosis:Thrombocytopeni a (HCC) [D69.6] Other Visit Diagnoses: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 left testicle [Q53.10]Order(s):ABS GRAN CT + CBC (FOR REMOTE [facility] USE) [SQRAGCBC] Order #: [id number] FUTUREFollow-up and Disposition History RecordedPrescriptions as of [...] by CAREY TREVIÑO MD on 06/15/17 Normal [facility] PROGRESSon 06-15-2017 PROGRESS HNO ID: [id number] thor: [place]: (none)Author Type: PhysicianType: Progress [...] kg (204 lb 9.6 oz) BMI 33.02 kg/y1Mdjvfcd Appearance: alert and oriented, appearing in no [...] ABS GRAN CT + CBC (FOR REMOTE [facility] USE)2. S/P CABG x 5 - ICD9: V45.81, ICD10: Z95.1See above3. Undescended left testicle - ICD9: 752.51, ICD10: Q53.10See Cruz Treviño MD Normal [facility] Remote Abs Gran + CBC (for F use only)on 06-15-2017 Absol Gran Count 5.25 k/uL Normal 1.45-7.50 Fe [facility] Erythrocyte distribution width Auto Ratio (RBC) 12.4 % Normal 11.5-15.0 [facility] Erythrocytes (RBC) 4.87 10*6/uL Normal 4.20-6.00 [facility] Hematocrit (HCT) 45.5 % Normal 39.0-51.0 [facility] Hemoglobin mass conc (Bld) 15.7 g/dL Normal 13.0-17.0 [facility] MCH 32.2 pG Normal 26.0-34.0 [facility] MCHC mass conc (RBC) 34.5 g/dL Normal 30.5-36.0 [facility] MCV 93.4 fL Normal 80.0-100.0 [facility] Platelet mean volume (PMV) 10.8 fL Normal 9.0-12.7 [facility] Platelets 116 10*3/uL Low 150-400 [facility] WBC (Leukocytes) 7.93 10*3/uL Normal 3.70-11.00 [facility] Encounters Encounter Date Encounter Type Care Provider Facility Start: 06-28-2023 End: 06-28-2023 ambulatory TERRANCE HORTON Not Available Start: 06-16-2023 End: 07-17-2023 ambulatory [facility] Start: 06-02-2023 End: 06-02-2023 ambulatory [facility] Start: 05-25-2023 End: 06-16-2023 ambulatory [facility] Start: 05-23-2023 End: 05-28-2023 Emergency department patient visit [facility] Start: 04-24-2023 End: 04-24-2023 ambulatory TERRANCE HORTON Not Available Start: 03-02-2023 End: 03-02-2023 ambulatory KARINA PARKINOSN Not Available Start: 01-23-2023 End: 01-23-2023 ambulatory [facility] [facility] Start: 08-15-2022 End: 08-15-2022 ambulatory [facility] Start: 07-27-2022 End: 07-28-[address] TERRANCE HORTON Facility:[facility]1 Start: 05-01-2022 End: 05-01-[address] TERRANCE HORTON Facility:[facility] Start: 02-14-2022 End: 02-14-[address] TERRANCE HORTON Facility:[facility] Start: 06-15-2017 End: 06-16-2017 Ambulatory CAREY TREVIÑO [facility] Payers Date Payer Category Payer Medicare [id number] 1950 Unknown [id number] 2.16.84 [id number] 1950 Unknown [id number] 2.16.84 [id number] 1950 Unknown [id number] 2.16.84 [id number] 1950 Unknown [id number] 2.16.8 [id number] 1950 Unknown [id number] 2.16.84 [id number] 1950 Unknown [id number] 2.16.84 [id number] 1950 Unknown [id number] 2.16.840 [id number] 1950 Unknown [id number] 2.16.8 [id number] 1950 Unknown [id number] 2.16.8 [id number] Progress note 06-02-2023 Note Date & Type Note Facility 06-02-2023 Note error [facility] Progress note 06-02-2023 Note Date & Type Note Facility 06-02-2023 Note [facility]iology [facility] No te Chief Complaint: establish care HPI: James Barros is a 72 y.o. male with a past medical history including HTN, HLD, COPD, and CAD s/p CABG in 2010. 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 Patient presents today for [...] cessation. I emphasized (more content not included)... [facility] Progress note 01-23-2023 Note Date [...] complication, without long-term current use of insulin ([facility]) Undescended left testicle Family History Problem Relation [...] clinic to establish care because his previous cigar packer and sorter (Dr. 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 Update: 08/15/2022 Patient adamantly [...] for this visit: Coronary artery disease involving [place] coronary artery of [place] heart with angina pectoris ([facility]/HCC) Essential hypertension Mixed hyperlipidemia Hx of CABG Chronic obstructive pulmonary disease, unspecified COPD type ([facility]) Tobacco dependence Intermittent claudication ([facility]) Plan 1. Coronary artery disease -Multivessel coronary [...] of twice daily. (more content not included)... [facility] Progress note 01-23-2023 Note Date [...] All other systems reviewed and are negative. [facility] Progress note 08-15-2022 Note Date & Type Note Facility 08-15-2022 Note Cardiology Clinic No te Chief Complaint: establish care HPI: James Barros is a 72 y.o. male with a past medical history including HTN, HLD, COPD, and CAD s/p CABG in 2010. 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 Patient adamantly denies any [...] Kathy Paz MD Interventional Cardiology [facility] Summary Purpose Family History No Family History [...] section and content) DATE CREATED AUTHOR 10/06/2017 [facility] DATE CREATED AUTHOR AUTHOR'S ORGANIZ ATION 08/01/2022 [facility] DATE CREATED AUTHOR AUTHOR'S ORGANIZ ATION 05/29/2023 [facility] DATE CREATED AUTHOR AUTHOR'S ORGANIZ ATION 06/04/2023 [facility] DATE CREATED AUTHOR AUTHOR'S ORGANIZ ATION 06/29/2023 [facility] DATE CREATED AUTHOR AUTHOR'S ORGANIZ ATION 07/17/2023 [facility] FOR RECORDS PERTAINING TO PATIENTS WHO ARE [...] BE BASED ON THE PRIMARY CLINICAL RECORDS. [employer] provides no warranty or guarantee of the accuracy or completeness of information in this document.
[2023-08-06 12:55] LABS: Glucometer 191 mg/dL (74-106)
[2023-08-06] MEDS: LACTATED RINGER'S SOLUTION 1,000 ML 200 ML IV ×3 (13:39→23:43)
--- NOTE | 2023-08-06 13:44 | PHOTOS ---
left top head
[2023-08-06 16:18] LABS: Glucometer 217 mg/dL (74-106)
[2023-08-06] MEDS: INSULIN ASPART 300 UNIT/3 ML PEN SUBQ ×2 (16:36→21:37)
[2023-08-06 18:35] LABS: Creatine Kinase 14956 U/L (39-308)
[2023-08-06 20:24] LABS: Glucometer 203 mg/dL (74-106)
[2023-08-07] VITALS (17 sets, daily range): BP systolic 121–160; BP diastolic 70–75; PULSE 60–81; TEMP 36.4–36.8; O2SAT 94–97
[2023-08-07 02:56] LABS: Creatine Kinase 12858 U/L (39-308)
[2023-08-07] MEDS: LACTATED RINGER'S SOLUTION 1,000 ML 200 ML IV ×2 (04:18→09:29)
[2023-08-07 05:05] LABS: Basophils Absolute Auto 0.1 10^3/uL (0.0-0.1); Basophils Percent Auto 0.5 % (0.2-2.0); Eosinophils Absolute Auto 0.1 10^3/uL (0.0-0.7); Eosinophils Percent Auto 0.6 % (0.9-7.0); Hematocrit 44.2 % (42.0-54.0); Immature Granulocytes Abs Auto 0.03 10^3/uL (0.00-0.03); Immature Granulocytes Pct Auto 0.3 % (0.0-0.5); Lymphocytes Absolute Auto 1.3 10^3/uL (1.2-3.8); Lymphocytes Percent Auto 12.5 % (20.5-60.0); Mean Corpuscular HGB Conc 33.9 g/dL (29.9-35.2); Mean Corpuscular Hemoglobin 32.7 pg (25.9-34.0); Mean Corpuscular Volume 96.3 fL (80.0-94.0); Mean Platelet Volume 10.5 fL (9.5-13.5); Monocytes Absolute Auto 1.3 10^3/uL (0.3-0.8); Monocytes Percent Auto 12.2 % (1.7-12.0); Neutrophils Absolute Auto 7.6 10^3/uL (1.4-6.5); Neutrophils Percent Auto 73.9 % (43.0-75.0); Platelet Count 107 10^3/uL (150-450); Red Blood Count 4.59 10^6/uL (4.70-6.10); Red Cell Distribution Width 12.3 % (11.0-15.0); White Blood Count 10.3 10^3/uL (4.0-11.0)
[2023-08-07 05:37] LABS: Alanine Aminotransferase 95 U/L (16-63); Albumin Level 2.9 g/dL (3.4-5.0); Alkaline Phosphatase 76 U/L (46-116); Anion Gap 12.2; Aspartate Amino Transferase 367 U/L (15-37); BUN Creatinine Ratio 13.8; Bilirubin Total 0.6 mg/dL (0.2-1.0); Calcium 10.5 mg/dL (8.5-10.1); Carbon Dioxide 23.8 mmol/L (21.0-32.0); Chloride 106 mmol/L (98-107); Estimated GFR (African America >60 (>=60); Estimated GFR (Non-African Ame >60 (>=60); Globulin 2.9 g/dL; Glucose 125 mg/dL (74-106); Sodium 138 mmol/L (136-145); Total Protein 5.8 g/dL (6.4-8.2)
[2023-08-07 05:48] LABS: Creatine Kinase 12836 U/L (39-308)
[2023-08-07 07:21] LABS: Glucometer 131 mg/dL (74-106)
--- NOTE | 2023-08-07 08:43 | US_ITS ---
The [address] [address] Patient Name: AJMES POPE MRN: [id number] date: 1950 Sex: M Assigned Patient Location: Current Patient Location: Accession/Order Number: [id number] Exam Date: 08/07/2023 16:13 Report Date: 08/07/2023 17:16 At the request of: KADE KELLY Procedure: US right upper quadrant EXAM: US right upper quadrant; [id number] HISTORY: elevated liver enzymes TECHNIQUE: Real-time sonography of the right upper quadrant was performed. Color and spectral Doppler were used to assess select abdominal vasculature. COMPARISON: None. FINDINGS: PANCREAS: Normal appearance of the visualized pancreas. GALLBLADDER: Resected. BILIARY DUCTS: Extrahepatic bile duct at the craig hepatis measures 9 mm. No intrahepatic or extrahepatic ductal dilatation. RIGHT KIDNEY: Kidney measures 10.7 x 5.2 x 5.4 cm. The kidney is within normal limits for size and echogenicity. No hydronephrosis, solid lesion, or stones demonstrated. LIVER: The liver is partially obscured by overlying bowel gas. What is visualized of the liver is within normal limits for size and echogenicity. No focal lesion demonstrated. VASCULATURE: -Antegrade flow in the main portal vein. US/US right upper quadrant IMPRESSION: 1. The CBD measures 9 mm in diameter which is typically within normal limits in a patient of this age and postcholecystectomy, however, if there is laboratory evidence of biliary obstruction then consider MRCP for further evaluation. 2. What is visualized of the liver is within normal limits. Electronically authenticated by: GINGER STEELE Date: 08/07/2023 17:16
--- NOTE | 2023-08-07 08:44 | PM.PN ---
Progress Note: Subjective Subjective Interval history: Patient sitting up in bed. complains of muscle aches and pains, no headaches or head pain from the fall/abrasions. He denies chest pain. He has had urine output. No fevers or chills. He appears less sleepy today. No other issues or concerns today. Exam Narrative Exam Narrative: General: Patient is alert, and oriented to person, place and time with normal affect, proper hygiene Skin: left scalp abrasion and left knee abrasion. Head: atraumatic, acephalic Eyes: PERRLA, no nystagmus present, conjunctiva clear, no scleral icterus Ears: normal gross auditory acuity Nose: symmetric, no discharge, no maxillary or frontal sinus tenderness Neck: no masses palpated, normal thyroid Heart: Normal rate and rhythm, no murmurs/rubs/gallops Lungs: no audible wheezes, crackles and normal breath sounds all lung elias Abdomen: Normal audible bowel sounds, no distension, No palpable masses, no organomegaly, no rebound/guarding/ or rigidity Musculoskeletal: no swelling bilateral lower extremities Neuro: CN II-X grossly intact Constitutional Vital Signs, click to edit/add: Last Vital Signs Temp 98.2 F 08/07/23 07:15 Pulse 62 08/07/23 08:00 Resp 16 08/07/23 07:15 BP 140/70 08/07/23 07:15 Pulse Ox 97 08/07/23 07:15 O2 Del Method Room Air 08/07/23 07:15 Progress Note: Objective Labs Labs: Short CBC 08/06/23 08/07/23 Range/Units 09:42 04:07 WBC 12.0 H 10.3 (4.0-11.0) 10^3/uL Hgb 16.4 15.0 (14.0-18.0) g/dL Hct 46.7 44.2 (42.0-54.0) % Plt Count 125 L 107 L (150-450) 10^3/uL BMP 08/06/23 08/07/23 09:42 04:07 Sodium 132 L 138 Potassium 3.9 4.0 Chloride 100 106 Carbon Dioxide 20.9 L 23.8 BUN 15.0 13.0 Creatinine 1.22 0.94 Glucose 206 H 125 H Calcium 10.6 H 10.5 H Cardiac Enzymes 0408/06/23 08/07/23 Range/Units 09:42 18:05 02:14 Total Creatine Kinase 7074 H* 34396 H* 30439 H* (39-308) U/L 08/07/23 Range/Units 04:07 Total Creatine Kinase 48578 H* (39-308) U/L Liver Function 08/07/23 Range/Units 04:07 Total Bilirubin 0.6 (0.2-1.0) mg/dL AST 367 H (15-37) U/L ALT 95 H (16-63) U/L Alkaline Phosphatase 76 (46-116) U/L Albumin 2.9 L (3.4-5.0) g/dL Urine 08/06/23 Range/Units 11:26 Urine Color Yellow (YELLOW) Urine Clarity Clear (CLEAR) Urine pH 5.5 (5.0-9.0) Ur Specific [place] 1.025 (1.005-1.025) Urine Protein >=300 A (NEG/TRACE) mg/dL Urine Glucose (UA) 250 A (NEGATIVE) mg/dL Progress Note: A&P Assessment and Plan (1) Rhabdomyolysis: Assessment and Plan: [place] [address] [place] [address], continue with IVF but stop LR and add NS @250 increasing rate, no signs of fluid overload. Normal BUN/CR so far, potassium normal, calcium slightly elevated, mag normal, phosphorus pending. Normal anion gap. Increased LFT's today which can be related to the course but plan to check liver ultrasound. hold statin, bigeminy on telemetry, continue to monitor electrolytes closely. May consider nephrology consult if slow improvement continues. Qualifiers: Encounter type: initial encounter Rhabdomyolysis type: traumatic Qualified Code(s): T79.6XXA - Traumatic ischemia of muscle, initial encounter (2) Generalized weakness: Assessment and Plan: hold seroquel. PT/OT evaluation, from #1 (3) Multiple abrasions: (4) Fall: Assessment and Plan: Xray's and CT head had no acute findings Qualifiers: Encounter type: initial encounter Qualified Code(s): W19.XXXA - Unspecified fall, initial encounter (5) Type 2 diabetes mellitus: Assessment and Plan: SSI as needed, accuchecks Qualifiers: Diabetes mellitus complication status: without complication Diabetes mellitus assisted insulin use: without assisted use Qualified Code(s): E11.9 - Type 2 diabetes mellitus without complications (6) Dementia: Qualifiers: Alzheimer's disease onset: late onset Dementia behavioral or psychological symptom: with psychotic disturbance Dementia severity: moderate Dementia type: Alzheimer's Qualified Code(s): G30.1 - Alzheimer's disease with late onset; F02.B2 - Dementia in other diseases classified elsewhere, moderate, with psychotic disturbance (7) HLD (hyperlipidemia): Assessment and Plan: hold statin Qualifiers: Hyperlipidemia type: unspecified Qualified Code(s): E78.5 - Hyperlipidemia, unspecified (8) HTN (hypertension): Assessment and Plan: addition of lisinopril 10mg daily. Qualifiers: Hypertension type: primary hypertension Qualified Code(s): I10 - Essential (primary) hypertension (9) CAD (coronary artery disease), [place] coronary artery: Assessment and Plan: continue aspirin Qualifiers: Associated angina: without angina [place] vs. transplanted heart: [place] heart Qualified Code(s): I25.10 - Atherosclerotic heart disease of [place] coronary artery without angina pectoris Plan SCD's and compression stockings for dvt prophylaxis given recent fall and head trauma patient is a full code
[2023-08-07] MEDS: ASPIRIN 81 MG TABLET.DR PO (09:37)
--- NOTE | 2023-08-07 09:40 | CM.NOTE ---
RN in with Dr. Arteaga for morning rounds. Pt agreeable to plan of care and potential skilled facility at discharge to improve strength.
[2023-08-07 11:06] LABS: Glucometer 183 mg/dL (74-106)
[2023-08-07] MEDS: INSULIN ASPART 300 UNIT/3 ML PEN SUBQ ×3 (11:29→23:03)
[2023-08-07 12:41] LABS: Creatine Kinase 10825 U/L (39-308)
[2023-08-07 13:06] LABS: Magnesium 2.1 mg/dL (1.8-2.4); Phosphorus 2.5 mg/dL (2.6-4.7)
[2023-08-07] MEDS: 0.9 % SODIUM CHLORIDE 500 ML 250 ML IV (13:06)
[2023-08-07] MEDS: LISINOPRIL 10 MG TABLET PO (13:14)
--- NOTE | 2023-08-07 14:51 | SWNOTE1 ---
SW met with pt and to discuss dc needs. Pt lives at home with . Pt uses a walker at home. Pt had a fall at home and was just here not too long ago. Previous 2 stays pt and refused home health and [facility] facility. SW spoke to pt and about pt's safety at home and that rehab is recommended this time as well. SW reviewed nursing facility list from medicare.gov with star ratings. SW let pt and know it will also depend on who takes pt's insurance. SW also explained that pt is a precert and pt would be here until we know if his insurance approves or denies him. Pt and 's first choice is [facility] in [place]. Second choice is likely [place]. SW to reach out to [facility]. LUPE spoke to Trudy at [facility] and they do take [employer] medicare and they have openings. Referral sent to [facility]. Referral included face sheet, ED note, H&P, provider notes, case management report, wound consult, nursing notes, diagnostic imaging, med list, and PT/OT notes. Important Message from Medicare reviewed and discussed with patient. Pt. verbalized understanding and signed the form. Original given to patient and copy placed in patient?s chart.
--- NOTE | 2023-08-07 15:27 | CM.DCFOLLOWU ---
Pt has been readmitted to hospital.
[2023-08-07] MEDS: 0.9 % SODIUM CHLORIDE 1,000 ML 250 ML IV ×3 (15:31→23:04)
--- NOTE | 2023-08-07 16:16 | SWNOTE1 ---
[facility] is able to accept. Pt is a precert and they have started precert.
[2023-08-07 16:53] LABS: Glucometer 162 mg/dL (74-106)
[2023-08-07 22:12] LABS: Glucometer 178 mg/dL (74-106)
[2023-08-08] VITALS (18 sets, daily range): BP systolic 158–164; BP diastolic 64–77; PULSE 55–80; TEMP 36–36.9; O2SAT 95–97; BMI 26.1
[2023-08-08] MEDS: 0.9 % SODIUM CHLORIDE 1,000 ML 250 ML IV ×5 (03:01→20:34)
[2023-08-08 05:17] LABS: Basophils Absolute Auto 0.1 10^3/uL (0.0-0.1); Basophils Percent Auto 0.6 % (0.2-2.0); Eosinophils Absolute Auto 0.2 10^3/uL (0.0-0.7); Hematocrit 42.2 % (42.0-54.0); Immature Granulocytes Abs Auto 0.03 10^3/uL (0.00-0.03); Immature Granulocytes Pct Auto 0.3 % (0.0-0.5); Lymphocytes Percent Auto 20.4 % (20.5-60.0); Mean Corpuscular HGB Conc 33.2 g/dL (29.9-35.2); Mean Corpuscular Hemoglobin 32.6 pg (25.9-34.0); Mean Corpuscular Volume 98.4 fL (80.0-94.0); Mean Platelet Volume 10.9 fL (9.5-13.5); Monocytes Absolute Auto 1.2 10^3/uL (0.3-0.8); Monocytes Percent Auto 12.7 % (1.7-12.0); Neutrophils Absolute Auto 6.3 10^3/uL (1.4-6.5); Platelet Count 101 10^3/uL (150-450); Red Blood Count 4.29 10^6/uL (4.70-6.10); Red Cell Distribution Width 12.4 % (11.0-15.0); White Blood Count 9.8 10^3/uL (4.0-11.0)
[2023-08-08 05:39] LABS: Alanine Aminotransferase 105 U/L (16-63); Albumin Globulin Ratio 0.9; Albumin Level 2.6 g/dL (3.4-5.0); Alkaline Phosphatase 80 U/L (46-116); Anion Gap 12.7; Aspartate Amino Transferase 272 U/L (15-37); BUN Creatinine Ratio 16.5; Bilirubin Total 0.8 mg/dL (0.2-1.0); Calcium 9.8 mg/dL (8.5-10.1); Carbon Dioxide 22.9 mmol/L (21.0-32.0); Chloride 108 mmol/L (98-107); Estimated GFR (African America >60 (>=60); Estimated GFR (Non-African Ame >60 (>=60); Globulin 2.8 g/dL; Glucose 129 mg/dL (74-106); Potassium 3.6 mmol/L (3.5-5.1); Sodium 140 mmol/L (136-145); Total Protein 5.4 g/dL (6.4-8.2)
--- NOTE | 2023-08-08 08:34 | PM.PN ---
Progress Note: Subjective Subjective Interval history: Patient sitting up in bed. no headaches or head pain from the fall/abrasions. He denies chest pain. He has had good, clear urine output. No fevers or chills. He is more alert and answers questions. Does not know he is in the hospital today but can tell you details about his fall. Is amenable to do intensive therapy and says, i just do not want to feel weak anymore Exam Narrative Exam Narrative: General: Patient is alert, and oriented to person, just not place and time with normal affect, proper hygiene Skin: left scalp abrasion and left knee abrasion, healing. Head: atraumatic, acephalic Eyes: PERRLA, no nystagmus present, conjunctiva clear, no scleral icterus Ears: normal gross auditory acuity Nose: symmetric, no discharge, no maxillary or frontal sinus tenderness Neck: no masses palpated, normal thyroid Heart: Normal rate and rhythm, no murmurs/rubs/gallops Lungs: no audible wheezes, crackles and normal breath sounds all lung elias Abdomen: Normal audible bowel sounds, no distension, No palpable masses, no organomegaly, no rebound/guarding/ or rigidity Musculoskeletal: no swelling bilateral lower extremities Neuro: CN II-X grossly intact Constitutional Vital Signs, click to edit/add: Last Vital Signs Temp 98.5 F 08/08/23 04:13 Pulse 63 08/08/23 07:59 Resp 18 08/08/23 04:13 BP 158/68 H 08/08/23 04:13 Pulse Ox 97 08/08/23 04:13 O2 Del Method Room Air 08/08/23 04:13 Progress Note: Objective Labs Labs: Short CBC 08/08/23 Range/Units 04:21 WBC 9.8 (4.0-11.0) 10^3/uL Hgb 14.0 (14.0-18.0) g/dL Hct 42.2 (42.0-54.0) % Plt Count 101 L (150-450) 10^3/uL BMP 08/08/23 04:21 Sodium 140 Potassium 3.6 Chloride 108 H Carbon Dioxide 22.9 BUN 13.0 Creatinine 0.79 Glucose 129 H Calcium 9.8 Cardiac Enzymes 08/07/23 Range/Units 12:09 Total Creatine Kinase 70002 H* (39-308) U/L Liver Function 08/08/23 Range/Units 04:21 Total Bilirubin 0.8 (0.2-1.0) mg/dL AST 272 H (15-37) U/L ALT 105 H (16-63) U/L Alkaline Phosphatase 80 (46-116) U/L Albumin 2.6 L (3.4-5.0) g/dL Progress Note: A&P Assessment and Plan (1) Rhabdomyolysis: Assessment and Plan: elevated ck levels improving down to 6000 from [address], continue with IVF with NS @250, monitor for signs of fluid overload. Normal BUN/CR so far, potassium normal, calcium slightly elevated, mag normal, phosphorus slightly low. Normal anion gap. Increased LFT's yesterday which can be related to the course, liver ultrasound showed no acute pathology. hold statin. Muscle weakness and pain improving. Good Urine output. Qualifiers: Encounter type: initial encounter Rhabdomyolysis type: traumatic Qualified Code(s): T79.6XXA - Traumatic ischemia of muscle, initial encounter (2) Acute hepatic failure: Assessment and Plan: Can be seen with severe Rhabdomyolysis. continue IVF, reviewed RUQ ultrasound. Patient with no n/v/d or fever or abdominal pain so less likely gallstone related. liver enzymes improving. Qualifiers: Hepatic coma status: without hepatic coma Qualified Code(s): K72.00 - Acute and subacute hepatic failure without coma (3) Generalized weakness: Assessment and Plan: hold seroquel. PT/OT evaluation, from #1 (4) Multiple abrasions: (5) Fall: Qualifiers: Encounter type: initial encounter Qualified Code(s): W19.XXXA - Unspecified fall, initial encounter (6) Type 2 diabetes mellitus: Assessment and Plan: SSI as needed, accuchecks Qualifiers: Diabetes mellitus complication status: without complication Diabetes mellitus middle or intermediate school principal insulin use: without middle or intermediate school principal use Qualified Code(s): E11.9 - Type 2 diabetes mellitus without complications (7) Dementia: Qualifiers: Alzheimer's disease onset: late onset Dementia behavioral or psychological symptom: with psychotic disturbance Dementia severity: moderate Dementia type: Alzheimer's Qualified Code(s): G30.1 - Alzheimer's disease with late onset; F02.B2 - Dementia in other diseases classified elsewhere, moderate, with psychotic disturbance (8) HLD (hyperlipidemia): Assessment and Plan: hold statin Qualifiers: Hyperlipidemia type: unspecified Qualified Code(s): E78.5 - Hyperlipidemia, unspecified (9) HTN (hypertension): Assessment and Plan: continue lisinopril 10mg daily Qualifiers: Hypertension type: primary hypertension Qualified Code(s): I10 - Essential (primary) hypertension (10) CAD (coronary artery disease), [place] coronary artery: Assessment and Plan: continue aspirin Qualifiers: Associated angina: without angina [place] vs. transplanted heart: [place] heart Qualified Code(s): I25.10 - Atherosclerotic heart disease of [place] coronary artery without angina pectoris Plan SCD's and compression stockings for dvt prophylaxis given recent fall and head trauma patient is a full code Patient recovering slower than anticipated, slow improvement in CK levels, liver enzymes and symptoms given intensive IVF, continue current course. Will require another inpatient night.
[2023-08-08] MEDS: LISINOPRIL 10 MG TABLET PO (08:55)
[2023-08-08] MEDS: ASPIRIN 81 MG TABLET.DR PO (08:55)
[2023-08-08 09:13] LABS: Creatine Kinase 6236 U/L (39-308)
--- NOTE | 2023-08-08 09:57 | SWNOTE1 ---
SW spoke to pt's , she was asking for updates, SW let her know that SW has not heard anything at this time and will update her once SW hears from .
--- NOTE | 2023-08-08 10:30 | CM.NOTE ---
Rounds made with Dr. Arteaga. No plan for discharge today.
[2023-08-08 11:03] LABS: Glucometer 193 mg/dL (74-106)
[2023-08-08] MEDS: INSULIN ASPART 300 UNIT/3 ML PEN SUBQ ×3 (11:23→22:53)
--- NOTE | 2023-08-08 11:42 | PT.DAILY ---
Physical Therapy Daily Note PT Daily Note/Assess Start: 08/07/23 09:07 Freq: Status: Active Protocol: Document 08/08/23 11:39 AUTUMN (Rec: 08/08/23 11:42 AUTUMN [id number]) Physical Therapy Daily Note/Assessment Time In/Time Out Time In 10:30 Time Out 10:47 Pain In Pain N/A Pain Out Pain N/A Subjective Subjective Pt sitting in BS chair upon arrival. Nursing present. Pt needs to use commode. Therapeutic Exercise Time Therapeutic Exercise Minutes (minutes) 3 Therapeutic Exercise Units 0 Therapeutic Exercise Treatment Therapeutic Exercise Treatment Seated bilat LE strengthening ex complete in BS chair 10x ea . Therapeutic Activity Time Therapeutic Activity Minutes (minutes) 8 Therapeutic Activity Units 1 Therapeutic Activity Treatment Chair Transfer Ability Contact Guard Assist,Minimum Assist Therapeutic Activity Comments Sit>stand Juan Ramon and pt amb 3' with RW to BS commode. Needs assistance to doff brief. Has bowel movement. Sit>stand CGA this attempt. Static standing at RW while pericare is performed for him and brief is donned. Pt amb 3' with RW, CGA back to BS chair without LOB. Demonstrates short, choppy gait pattern. Pt completes seated ex in BS chair. Chair alarm is set and nursing is present upon leaving room. Total Physical Therapy Time Total Therapy Minutes 11 Total Physical Therapy Units 1 Summary Daily Note Summary Fair tolerance with session. Choppy gait pattern with amb today - CGA for safety. Would benefit from SNF to restore strength, endurance and balance to return to PLOF.
--- NOTE | 2023-08-08 13:15 | SWNOTE1 ---
SW sent PT/OT, physician notse, labs, vitals, nursing notes, and med list to .
--- NOTE | 2023-08-08 13:59 | SWNOTE1 ---
SW did complete HENS for [facility].
[2023-08-08 16:12] LABS: Glucometer 181 mg/dL (74-106)
--- NOTE | 2023-08-08 16:25 | DIETREC ---
Recommend d/c Renal diet d/t labs indicate normal kidney function; instead provide 2000 kcal CCD, Heart Healthy diet d/t dx DM2, acute hepatic failure, h/o cardiac issues. Also recommend 30 mL PRO-stat BID d/t dx rhabdomyolysis and elevated creatine kinase.
[2023-08-08 20:15] LABS: Glucometer 220 mg/dL (74-106)
[2023-08-08] MEDS: ACETAMINOPHEN 325 MG TABLET PO (20:34)
[2023-08-08] MEDS: PROSTAT 15 GM PROTEIN/100 CAL 30 ML LIQUID PACKET PO (20:35)
[2023-08-09] VITALS (22 sets, daily range): BP systolic 142–187; BP diastolic 69–81; PULSE 53–87; TEMP 36.3–36.8; O2SAT 93–99
[2023-08-09] MEDS: 0.9 % SODIUM CHLORIDE 1,000 ML 100 ML IV ×3 (01:09→19:46)
[2023-08-09 05:43] LABS: Basophils Absolute Auto 0.1 10^3/uL (0.0-0.1); Basophils Percent Auto 0.8 % (0.2-2.0); Eosinophils Absolute Auto 0.2 10^3/uL (0.0-0.7); Hematocrit 36.9 % (42.0-54.0); Hemoglobin 12.6 g/dL (14.0-18.0); Immature Granulocytes Abs Auto 0.02 10^3/uL (0.00-0.03); Immature Granulocytes Pct Auto 0.3 % (0.0-0.5); Lymphocytes Absolute Auto 1.9 10^3/uL (1.2-3.8); Mean Corpuscular HGB Conc 34.1 g/dL (29.9-35.2); Mean Corpuscular Hemoglobin 32.9 pg (25.9-34.0); Mean Corpuscular Volume 96.3 fL (80.0-94.0); Mean Platelet Volume 11.2 fL (9.5-13.5); Monocytes Absolute Auto 0.8 10^3/uL (0.3-0.8); Monocytes Percent Auto 9.4 % (1.7-12.0); Neutrophils Percent Auto 62.5 % (43.0-75.0); Platelet Count 104 10^3/uL (150-450); Red Blood Count 3.83 10^6/uL (4.70-6.10); Red Cell Distribution Width 12.3 % (11.0-15.0)
[2023-08-09 06:50] LABS: Anion Gap 12.4; Carbon Dioxide 21.8 mmol/L (21.0-32.0); Chloride 111 mmol/L (98-107); Potassium 3.2 mmol/L (3.5-5.1); Sodium 142 mmol/L (136-145)
[2023-08-09 06:51] LABS: Alanine Aminotransferase 96 U/L (16-63); Albumin Level 2.5 g/dL (3.4-5.0); Alkaline Phosphatase 79 U/L (46-116); Aspartate Amino Transferase 197 U/L (15-37); BUN Creatinine Ratio 18.9; Bilirubin Total 0.9 mg/dL (0.2-1.0); Calcium 9.6 mg/dL (8.5-10.1); Estimated GFR (African America >60 (>=60); Estimated GFR (Non-African Ame >60 (>=60); Globulin 2.6 g/dL; Glucose 97 mg/dL (74-106); Total Protein 5.1 g/dL (6.4-8.2)
--- NOTE | 2023-08-09 09:05 | P.PN_ITS ---
Progress Note: Subjective Subjective Interval history: patient still having some lower extremity aches but denies, shortness of breath or chest pain. He says he still feels weak. No other issues or concerns this morning. Exam Narrative Exam Narrative: General: Patient is alert, and oriented to person, just not place and time with normal affect, proper hygiene Skin: left scalp abrasion and left knee abrasion, healing. Eyes: PERRLA, no nystagmus present, conjunctiva clear, no scleral icterus Ears: normal gross auditory acuity Nose: symmetric, no discharge, no maxillary or frontal sinus tenderness Neck: no masses palpated, normal thyroid Heart: Normal rate and rhythm, no murmurs/rubs/gallops Lungs: no audible wheezes, crackles and normal breath sounds all lung elias Abdomen: Normal audible bowel sounds, no distension, No palpable masses, no organomegaly, no rebound/guarding/ or rigidity Musculoskeletal: no swelling bilateral lower extremities Neuro: CN II-X grossly intact Constitutional Vital Signs, click to edit/add: Last Vital Signs Temp 97.9 F 08/09/23 07:44 Pulse 72 08/09/23 08:00 Resp 14 08/09/23 07:44 BP 166/69 H 08/09/23 07:44 Pulse Ox 97 08/09/23 07:44 O2 Del Method Room Air 08/09/23 07:44 Progress Note: Objective Labs Labs: Short CBC 08/09/23 Range/Units 04:13 WBC 8.0 (4.0-11.0) 10^3/uL Hgb 12.6 L (14.0-18.0) g/dL Hct 36.9 L (42.0-54.0) % Plt Count 104 L (150-450) 10^3/uL BMP 08/09/23 04:13 Sodium 142 Potassium 3.2 L Chloride 111 H Carbon Dioxide 21.8 BUN 14.0 Creatinine 0.74 Glucose 97 Calcium 9.6 Cardiac Enzymes 08/08/23 Range/Units 04:21 Total Creatine Kinase 6236 H* (39-308) U/L Liver Function 08/09/23 Range/Units 04:13 Total Bilirubin 0.9 (0.2-1.0) mg/dL AST 197 H (15-37) U/L ALT 96 H (16-63) U/L Alkaline Phosphatase 79 (46-116) U/L Albumin 2.5 L (3.4-5.0) g/dL Progress Note: A&P Assessment and Plan (1) Rhabdomyolysis: Assessment and Plan: elevated ck levels improving [place] 3000 [place] [id number], continue with IVF with NS @100 (decreased rate), monitor for signs of fluid overload, still none. Normal BUN/CR, potassium normal. Increased LFT's yesterday which can be related to the course, liver ultrasound showed no acute pathology. hold statin. Muscle weakness and pain improving. Good Urine output. Qualifiers: Encounter type: initial encounter Rhabdomyolysis type: traumatic Qualified Code(s): T79.6XXA - Traumatic ischemia of muscle, initial encounter (2) Acute hepatic failure: Assessment and Plan: Can be seen with severe Rhabdomyolysis. continue IVF, reviewed RUQ ultrasound. Patient with no n/v/d or fever or abdominal pain so less likely gallstone related. liver enzymes improving. Qualifiers: Hepatic coma status: without hepatic coma Qualified Code(s): K72.00 - Acute and subacute hepatic failure without coma (3) Generalized weakness: Assessment and Plan: hold seroquel. continue PT/OT (4) Multiple abrasions: (5) Fall: Qualifiers: Encounter type: initial encounter Qualified Code(s): W19.XXXA - Unspecified fall, initial encounter (6) Type 2 diabetes mellitus: Assessment and Plan: SSI as needed, accuchecks Qualifiers: Diabetes mellitus complication status: without complication Diabetes mellitus terminal operator insulin use: without terminal operator use Qualified Code(s): E11.9 - Type 2 diabetes mellitus without complications (7) Dementia: Qualifiers: Alzheimer's disease onset: late onset Dementia behavioral or psychological symptom: with psychotic disturbance Dementia severity: moderate Dementia type: Alzheimer's Qualified Code(s): G30.1 - Alzheimer's disease with late onset; F02.B2 - Dementia in other diseases classified elsewhere, moderate, with psychotic disturbance (8) HLD (hyperlipidemia): Assessment and Plan: hold statin Qualifiers: Hyperlipidemia type: unspecified Qualified Code(s): E78.5 - Hyperlipi demia, unspecified (9) HTN (hypertension): Assessment and Plan: continue lisinopril 10mg daily Qualifiers: Hypertension type: primary hypertension Qualified Code(s): I10 - Essential (primary) hypertension (10) CAD (coronary artery disease), [place] coronary artery: Assessment and Plan: continue aspirin Qualifiers: Associated angina: without angina [place] vs. transplanted heart: [place] heart Qualified Code(s): I25.10 - Atherosclerotic heart disease of [place] coronary artery without angina pectoris Plan SCD's and compression stockings for dvt prophylaxis given recent fall and head trauma patient is a full code Hopeful discharge to snf facility.
[2023-08-09 09:42] LABS: Creatine Kinase 3940 U/L (39-308)
[2023-08-09] MEDS: PROSTAT 15 GM PROTEIN/100 CAL 30 ML LIQUID PACKET PO ×2 (09:51→20:44)
[2023-08-09] MEDS: ASPIRIN 81 MG TABLET.DR PO (09:51)
[2023-08-09] MEDS: LISINOPRIL 10 MG TABLET PO (09:51)
--- NOTE | 2023-08-09 10:56 | PT.DAILY ---
Physical Therapy Daily Note PT Daily Note/Assess Start: 08/07/23 09:07 Freq: Status: Active Protocol: Document 08/09/23 10:50 AUTUMN (Rec: 08/09/23 10:56 AUTUMN [id number]) Physical Therapy Daily Note/Assessment Time In/Time Out Time In 09:40 Time Out 10:00 Pain In Pain N/A Pain Out Pain N/A Subjective Subjective Pt sitting in BS chair upon arrival. needs to use urinal - agrees to allow SALES TECHNICIAN assist with this. Therapeutic Exercise Time Therapeutic Exercise Minutes (minutes) 5 Therapeutic Exercise Units 0 Therapeutic Exercise Treatment Therapeutic Exercise Treatment Seated bilat LE strengthening ex 10x ea in BS chair. Standing marches, hip flexion, and abd 5x ea. Therapeutic Activity Time Therapeutic Activity Minutes (minutes) 10 Therapeutic Activity Units 1 Therapeutic Activity Treatment Chair Transfer Ability Minimum Assist Therapeutic Activity Comments Sit>stand Juan Ramon. Static stand to use urinal - pt requires bialt support on RW while SALES TECHNICIAN holds urinal in place. Pt needs seated rest upon completion. Completes 3x sit> stand with Juan Ramon. Pt then remains standing to complete a couple standing ex at RW. Returned to BS chair. Seated ex complete in BS chair. Call light in reach and chair alarm activated upon leaving room. Total Physical Therapy Time Total Therapy Minutes 15 Total Physical Therapy Units 1 Summary Daily Note Summary Fair tolerance with session. Cont to need assistance with transfers. Would benefit from SNF to regain strength.
[2023-08-09 11:30] LABS: Glucometer 169 mg/dL (74-106)
[2023-08-09] MEDS: INSULIN ASPART 300 UNIT/3 ML PEN SUBQ ×3 (11:39→21:14)
--- NOTE | 2023-08-09 11:48 | CM.NOTE ---
Rounds made with Dr. Arteaga, pt up in chair this AM and verbalizes feeling better but still very weak with ambulation. Pt will discharge to [facility] when medically stable.
--- NOTE | 2023-08-09 13:30 | SWNOTE1 ---
Updated PT note and physician note sent to [facility].
--- NOTE | 2023-08-09 16:03 | SWNOTE1 ---
LUPE did reach out to Trudy at [facility] and they have not received approval yet.
[2023-08-09 16:17] LABS: Glucometer 213 mg/dL (74-106)
[2023-08-09 19:39] LABS: Glucometer 179 mg/dL (74-106)
[2023-08-09] MEDS: HYDRALAZINE HCL 20 MG/ML VIAL 10 MG IVP (19:53)
[2023-08-09] MEDS: POTASSIUM CHLORIDE 10 MEQ ER TABLET 20 MEQ PO (20:44)
[2023-08-09] MEDS: ACETAMINOPHEN 325 MG TABLET PO (21:54)
[2023-08-09] MEDS: DIPHENHYDRAMINE HCL 25 MG CAPSULE PO (23:02)
[2023-08-10] VITALS (11 sets, daily range): BP systolic 153–167; BP diastolic 74–78; PULSE 69–102; TEMP 36.3–36.8; O2SAT 96–98
[2023-08-10 04:53] LABS: Basophils Absolute Auto 0.1 10^3/uL (0.0-0.1); Basophils Percent Auto 0.6 % (0.2-2.0); Eosinophils Absolute Auto 0.2 10^3/uL (0.0-0.7); Eosinophils Percent Auto 2.6 % (0.9-7.0); Hematocrit 40.1 % (42.0-54.0); Hemoglobin 13.6 g/dL (14.0-18.0); Immature Granulocytes Abs Auto 0.05 10^3/uL (0.00-0.03); Immature Granulocytes Pct Auto 0.6 % (0.0-0.5); Lymphocytes Absolute Auto 1.9 10^3/uL (1.2-3.8); Lymphocytes Percent Auto 21.4 % (20.5-60.0); Mean Corpuscular HGB Conc 33.9 g/dL (29.9-35.2); Mean Corpuscular Hemoglobin 32.5 pg (25.9-34.0); Mean Corpuscular Volume 95.9 fL (80.0-94.0); Mean Platelet Volume 10.6 fL (9.5-13.5); Monocytes Absolute Auto 0.9 10^3/uL (0.3-0.8); Neutrophils Absolute Auto 5.7 10^3/uL (1.4-6.5); Neutrophils Percent Auto 64.8 % (43.0-75.0); Platelet Count 114 10^3/uL (150-450); Red Blood Count 4.18 10^6/uL (4.70-6.10); Red Cell Distribution Width 12.1 % (11.0-15.0); White Blood Count 8.8 10^3/uL (4.0-11.0)
[2023-08-10 05:20] LABS: Alanine Aminotransferase 93 U/L (16-63); Albumin Globulin Ratio 0.8; Albumin Level 2.5 g/dL (3.4-5.0); Alkaline Phosphatase 85 U/L (46-116); Anion Gap 12.6; Aspartate Amino Transferase 148 U/L (15-37); BUN Creatinine Ratio 19.3; Bilirubin Total 0.9 mg/dL (0.2-1.0); Calcium 9.8 mg/dL (8.5-10.1); Carbon Dioxide 21.8 mmol/L (21.0-32.0); Chloride 110 mmol/L (98-107); Estimated GFR (African America >60 (>=60); Estimated GFR (Non-African Ame >60 (>=60); Glucose 151 mg/dL (74-106); Potassium 3.4 mmol/L (3.5-5.1); Sodium 141 mmol/L (136-145); Total Protein 5.5 g/dL (6.4-8.2)
[2023-08-10] MEDS: 0.9 % SODIUM CHLORIDE 1,000 ML 100 ML IV (05:39)
[2023-08-10 05:54] LABS: Creatine Kinase 2166 U/L (39-308)
[2023-08-10 07:31] LABS: Glucometer 139 mg/dL (74-106)
[2023-08-10] MEDS: LISINOPRIL 10 MG TABLET PO (08:36)
[2023-08-10] MEDS: PROSTAT 15 GM PROTEIN/100 CAL 30 ML LIQUID PACKET PO (08:36)
[2023-08-10] MEDS: POTASSIUM CHLORIDE 10 MEQ ER TABLET 20 MEQ PO (08:36)
[2023-08-10] MEDS: ASPIRIN 81 MG TABLET.DR PO (08:36)
--- NOTE | 2023-08-10 08:52 | PM.DS1 ---
DS: Providers Provider Date of admission: 08/06/23 12:30 Primary care physician: Kenny Brown MD Admitting clinician: Clarisse Arteaga Consults: 08/06/23 Consult to Dietitian Routine Reason For Exam: weight loss Reason for consultation: weight loss 08/06/23 12:07 Occupational Therapy Eval and Treat Routine Reason for consultation: falls/weakness Has provider been notified: No Physical Therapy Eval and Treat Routine Reason for consultation: falls/weakness Has provider been notified: No Discharging clinician: Clarisse Arteaga DS: Diagnosis Discharge Diagnosis (1) Rhabdomyolysis: Qualifiers: Encounter type: initial encounter Rhabdomyolysis type: traumatic Qualified Code(s): T79.6XXA - Traumatic ischemia of muscle, initial encounter (2) Acute hepatic failure: Qualifiers: Hepatic coma status: without hepatic coma Qualified Code(s): K72.00 - Acute and subacute hepatic failure without coma (3) Generalized weakness: (4) Multiple abrasions: (5) Fall: Qualifiers: Encounter type: initial encounter Qualified Code(s): W19.XXXA - Unspecified fall, initial encounter (6) Type 2 diabetes mellitus: Qualifiers: Diabetes mellitus complication status: without complication Diabetes mellitus termite helper insulin use: without termite helper use Qualified Code(s): E11.9 - Type 2 diabetes mellitus without complications (7) Dementia: Qualifiers: Alzheimer's disease onset: late onset Dementia behavioral or psychological symptom: with psychotic disturbance Dementia severity: moderate Dementia type: Alzheimer's Qualified Code(s): G30.1 - Alzheimer's disease with late onset; F02.B2 - Dementia in other diseases classified elsewhere, moderate, with psychotic disturbance (8) HLD (hyperlipidemia): Qualifiers: Hyperlipidemia type: unspecified Qualified Code(s): E78.5 - Hyperlipidemia, unspecified (9) HTN (hypertension): Qualifiers: Hypertension type: primary hypertension Qualified Code(s): I10 - Essential (primary) hypertension (10) CAD (coronary artery disease), [place] coronary artery: Qualifiers: Associated angina: without angina [place] vs. transplanted heart: [place] heart Qualified Code(s): I25.10 - Atherosclerotic heart disease of [place] coronary artery without angina pectoris DS: Summary Hospital Course Hospital Course: Patient is a 73 y.o male with history of hyperlipidemia, dementia, non insulin dept type 2 diabetes, HTN, CAD with prior bypass surgery. Patient fell 08/06/23 at 3am and fell in the bedroom. He has a left head/scalp abrasion and left knee abrasion. He is not sure how long he was down. I spoke with his , Leydi on the phone and she has seen a decline about 2 months, more weak and difficult to move around rooms and up to the restroom. She thinks that maybe the Seroquel is making him feel off. This has been held. In the ER was found to have elevated CK 16,000 level, treated for Rhabdomyolysis and was admitted for this. He sees Dr. Brown regularly. His imaging was negative for fractures, CT head showed no acute bleeding. Patient was provided IVF, no acute signs of heart failure or acute renal failure. BUN/CR have remained in normal range. He initially also had elevated LFT's with normal US of the liver. Some Hepatic failure/injury due to the rhabdo. His LFT's are improving and he has not experienced any elevation in bilirubin, or any N/V or diarrhea. The AST was 148, ALT was 93 at the time of discharge. I have also held statin and plan to hold that at discharge for 1 month, until evaluation by facility physician, and repeat labs. Potassium levels slightly decreased due to dilutional effect with fluids. But mag, phos, calcium are all stable. [facility]. Status at Discharge Functional status at discharge: uses cane/walker Overall status at discharge: patient is progressing back to baseline Time Spent with Patient Time attestation: Total time spent providing and/or coordinating discharge services: Time spent: greater than 30 minutes Exam Narrative Exam Narrative: General: Patient is alert, and oriented to person, and time with normal affect, proper hygiene Skin: left scalp abrasion and left knee abrasion, healing. Eyes: PERRLA, no nystagmus present, conjunctiva clear, no scleral icterus Ears: normal gross auditory acuity Nose: symmetric, no discharge, no maxillary or frontal sinus tenderness Neck: no masses palpated, normal thyroid Heart: Normal rate and rhythm, no murmurs/rubs/gallops Lungs: no audible wheezes, crackles and normal breath sounds all lung elias Musculoskeletal: no swelling bilateral lower extremities Neuro: CN II-X grossly intact Constitutional Vital Signs, click to edit/add: Last Vital Signs Temp 97.9 F 08/10/23 08:42 Pulse 102 H 08/10/23 08:42 Resp 18 08/10/23 08:42 BP 153/74 H 08/10/23 08:42 Pulse Ox 98 08/10/23 08:42 O2 Del Method Room Air 08/10/23 08:42 DS: Data Data Completed and Pending Labs on day of discharge: Labs from last 24 hours 08/10/23 08/10/23 08/09/23 07:30 03:57 19:37 WBC 8.8 RBC 4.18 L Hgb 13.6 L Hct 40.1 L MCV 95.9 H MCH 32.5 MCHC 33.9 RDW 12.1 Plt Count 114 L MPV 10.6 Neut % (Auto) 64.8 Lymph % (Auto) 21.4 [place] % (Auto) 10.0 Eos % (Auto) 2.6 Baso % (Auto) 0.6 Neut # (Auto) 5.7 Lymph # (Auto) 1.9 [place] # (Auto) 0.9 H Eos # (Auto) 0.2 Baso # (Auto) 0.1 Abs Immat Gran (auto) 0.05 H Imm/Tot Granulo (auto) 0.6 H Sodium 141 Potassium 3.4 L Chloride 110 H Carbon Dioxide 21.8 Anion Gap 12.6 BUN 16.0 Creatinine 0.83 Est GFR ( Amer) >60 Est GFR (Non-Af Amer) >60 BUN/Creatinine Ratio 19.3 Glucose 151 H Calcium 9.8 Total Bilirubin 0.9 AST 148 H ALT 93 H Alkaline Phosphatase 85 Total Creatine Kinase 2166 H* Total Protein 5.5 L Albumin 2.5 L Globulin 3.0 Albumin/Globulin Ratio 0.8 POC Glucose 139 H 179 H 08/09/23 08/09/23 08/09/23 16:14 11:29 04:13 WBC RBC Hgb Hct MCV MCH MCHC RDW Plt Count MPV Neut % (Auto) Lymph % (Auto) [place] % (Auto) Eos % (Auto) Baso % (Auto) Neut # (Auto) Lymph # (Auto) [place] # (Auto) Eos # (Auto) Baso # (Auto) Abs Immat Gran (auto) Imm/Tot Granulo (auto) Sodium Potassium Chloride Carbon Dioxide Anion Gap BUN Creatinine Est GFR ( Amer) Est GFR (Non-Af Amer) BUN/Creatinine Ratio Glucose Calcium Total Bilirubin AST ALT Alkaline Phosphatase Total Creatine Kinase 3940 H* Total Protein Albumin Globulin Albumin/Globulin Ratio POC Glucose 213 H 169 H Discharge Plan Discharge Disposition: Xfer Inpatient Rehab Fac Condition: Fair Discharge Medications: New lisinopril 10 mg Tablet 10 mg PO QD 30 Days Qty: 30 0RF Continued metformin 500 mg tablet 1,000 mg PO BIDWM aspirin [Adult Aspirin Regimen] 81 mg tablet,delayed release (DR/EC) 81 mg PO DAILY Held rosuvastatin 20 mg tablet 20 mg PO DAILY Hold Instructions: Resume on 09/09/23. Discontinued quetiapine 25 mg tablet 25 mg PO .QHS sodium chloride 1 gram tablet 1,000 mg PO TID Patient Comments: MORNING, EVENING AND BEFORE BED aripiprazole 5 mg tablet 5 mg PO .QHS lisinopril-hydrochlorothiazide 10-12.5 mg tablet 1 tab PO .QD Print Language: Russian Forms: Portal Instructions Discharge location: [facility]
--- NOTE | 2023-08-10 09:14 | CM.NOTE ---
Important Message From Medicare discussed with pt, pt denies questions or concerns.
[2023-08-10 10:56] LABS: Glucometer 240 mg/dL (74-106)
--- NOTE | 2023-08-10 10:59 | PT.DAILY ---
Physical Therapy Daily Note PT Daily Note/Assess Start: 08/07/23 09:07 Freq: Status: Active Protocol: Document 08/10/23 10:54 AUTUMN (Rec: 08/10/23 10:59 AUTUMN [id number]) Physical Therapy Daily Note/Assessment Time In/Time Out Time In 09:10 Time Out 09:25 Pain In Pain N/A Pain Out Pain N/A Subjective Subjective Pt sitting in BS chair upon arrival. Agrees to PT. No new complaints. Therapeutic Exercise Time Therapeutic Exercise Minutes (minutes) 4 Therapeutic Exercise Units 0 Therapeutic Exercise Treatment Therapeutic Exercise Treatment Seated LE strengthening ex complete in BS chair 10x to improve functional mobility prior to gait. Therapeutic Activity Time Therapeutic Activity Minutes (minutes) 7 Therapeutic Activity Units 1 Therapeutic Activity Treatment Chair Transfer Ability Moderate Assist Therapeutic Activity Comments Sit>stand from BS chair ModA this morning. Pt static stand 30 sec (telling a story and distracted from what we are doing) with RW then amb 10' to another chair in room. Pt requires Juan Ramon with amb due to LE weakness and min unsteadiness with gait. Pt sits in other room chair for 3 min while resting before standing again requiring ModA. Amb 10' back to BS chair with RW, Juan Ramon. Increased time needed due to short step length and slow with turning. Remains in BS chair upon completion with call light in reach and chair alarm activated. Total Physical Therapy Time Total Therapy Minutes 11 Total Physical Therapy Units 1 Summary Daily Note Summary Requires increased assistance for transfers on this date. Would benefit from SNF to regain strength and return to PLOF.
--- NOTE | 2023-08-10 11:14 | SWNOTE1 ---
SW sent over PT note from today along with updated labs and vitals to [facility].
--- NOTE | 2023-08-10 11:53 | CM.NOTE ---
Rounds made with Dr. Arteaga, pt will discharge to [place] when medically stable. Pt still c/o weakness.
[2023-08-10] MEDS: INSULIN ASPART 300 UNIT/3 ML PEN SUBQ (12:02)
--- NOTE | 2023-08-10 12:13 | SWNOTE1 ---
LUPE called and spoke to pt's and let her know we are still waiting. LUPE has already sent updates this morning to [facility]. Pt's will be here in the next hour or so. LUPE let pt know.
--- NOTE | 2023-08-10 13:28 | SWNOTE1 ---
SW checked in again with [facility] and they have checked 2x and precert still pending. SW called pt's insurance to see if SW could get anywhere. SW spoke to one person and they said it was still pending. SW spoke to another person and they could see everything was submitted as well and it was still spending. LUPE asked if there was anything SW could do to speed things up and he voiced no.
--- NOTE | 2023-08-10 15:49 | SWNOTE1 ---
Pt is approved to go to [facility] skilled. LUPE spoke with pt and , pt's is going to transport. Nursing is aware. LUPE notified [facility] as well. LUPE faxed over dc med rec and dc summary.
--- NOTE | 2023-08-11 12:28 | CM.NOTE ---
Message was received from [facility] secretary on Med Surg that patient's had questions regarding medications. Called and left message, no answer. Attempted to call [facility], message left.
== END 2023-08-10 15:19 | DRG 564 ==
LOC: ER 11:42 → MS 12:36
PROVIDERS: Admitting Provider Family Medicine; Emergency Provider Emergency Medicine; PCP Family Medicine; Visit Provider Family Medicine
DX: T79.6XXA Traumatic ischemia of muscle, initial encounter (principal); K72.00 Acute and subacute hepatic failure without coma; F02.B2 Dementia in other diseases classified elsewhere, moderate, with psychotic disturbance; E11.9 Type 2 diabetes mellitus without complications; G30.1 Alzheimer's disease with late onset; E78.5 Hyperlipidemia, unspecified; I10 Essential (primary) hypertension; I25.10 Atherosclerotic heart disease of native coronary artery without angina pectoris; Z95.1 Presence of aortocoronary bypass graft; S00.01XA Abrasion of scalp, initial encounter; S80.212A Abrasion, left knee, initial encounter; H54.3 Unqualified visual loss, both eyes; F17.210 Nicotine dependence, cigarettes, uncomplicated; Z79.82 Long term (current) use of aspirin; Z79.84 Long term (current) use of oral hypoglycemic drugs; Z79.899 Other long term (current) drug therapy; W19.XXXA Unspecified fall, initial encounter; R53.1 Weakness; R25.1 Tremor, unspecified; Z23 Encounter for immunization
CPT/HCPCS: 36415; 70450; 71045; 73502; 73562; 76705; 80048; 80053; 81001; 82550; 82948; 83735; 83874; 84100; 85007; 85025; 85027; 90471; 90715; 93005; 96361; 96374; 97161; 97165; 97530; 97535; 99285

== ENCOUNTER 2023-09-18 16:06 | Inpatient (IN) | payer MEDICARE, SELFPAY ==
[2023-09-18] VITALS (19 sets, daily range): BP systolic 81–129; BP diastolic 49–69; PULSE 67–84; TEMP 36.4–36.6; O2SAT 92–100; BMI 26.0
--- OUTSIDE RECORDS SUMMARY | 2023-09-18 16:30 | XMS_ITS | CCD ---
Author Organization [facility] Care Team Providers Care Weighbridge Operator Name Role Phone CAREY TREVIÑO Unavailable [...] Consulting Unavail able SARBJIT OLIVERA Attending Unavailable ALGHOTHANIKATHY Attending Unavailable ALGHOKATHY NIETO Attending Unavailable SHINE ELLISON Referring Unavailable NADEREAde, TERRANCE Primary Care Unavailable NADERER, TERRANCE Primary Care Unavailable SHINE ELLISON Referring Unavailable NADEREAde, TERRANCE Attending Unavailable RUSHERKARINA Attending Unavailable NADERER, TERRANCE Attending Unavailable RUSHERKARINA Attending Unavailable NADERER, TERRANCE Attending Unavailable Allergies Allergy Classification Reported Allergen(s) Allergy Type Date of Onset Reaction(s) Facility (1 source) bee venom Drug allergy (disorder) [facility] Repository (1 source) Iodine (And Iodine Containting Drugs) Drug allergy (disorder) [facility] Rep[facility] Problems Active Problems Problem Classification Problem Date Documented Da te Episodic/Chronic Chronic obstructive pulmonary disease and bronchiectasis (2 sources) Chronic obstructive pulmonary disease, unspecified; 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: [Chronic obstructive pulmonary disease, unspecified] Onset: 01-23-2023 Chronic Coagulation and hemorrhagic disorders (1 source) Thrombocytopenia, unspecified; 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: [Thrombocytopenia, unspecified] Onset: 06-15-2017 Chronic Coronary atherosclerosis and other heart disease (3 sources) Atherosclerotic heart disease of [place] coronary artery without angina pectoris; 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: [Atherosclerotic heart disease of [place] coronary artery with unspecified angina pectoris] Onset: [...] Onset: 05-03-2022 Chronic Other aftercare (1 source) 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; 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: [ORTHOTIC PRACTITIONER CURRENT USE OF ASPIRIN] Onset: 05-03-2022 Episodic Other aftercare (1 source) Other [facility] (current) drug therapy; 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: [OTH ORTHOTIC PRACTITIONER CURRENT DRUG THERAPY] Onset: 05-03-2022 Episodic Other aftercare (1 source) nursing home (current) use of oral hypoglycemic drugs; 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: [ORTHOTIC PRACTITIONER USE ORAL HYPOGLYCEMIC DX] Onset: 05-03-2022 Episodic [...] Range Facility Office Visiton 06-02-2023 Follow-up visit [id number] James Barros 1950 M Date Provider Department Center 06/02/2023 KATHY FELICIANO Family History Problem Relation Age of Onset Heart attack Maternal Grandfather Family Status - Relation Status Age at Maternal Grandfather Level of Service:46446 DE OFFICE/OUTPATIENT ESTABLISHED MOD MDM 30 MIN Normal [facility] Office Visiton 01-23-2023 Follow-up visit [id number] James Barros 1950 M Date Provider Department Center 01/23/2023 SARBJIT BARBOZA Family History Problem Relation Age of Onset Heart attack Maternal Grandfather Family Status - Relation Status Age at Maternal Grandfather Level of Service:10524 DE OFFICE/OUTPATIENT ESTABLISHED MOD MDM 30-39 MIN Normal [facility] Office Visiton 08-15-2022 Follow-up visit [id number] James Barros Floresita 1950 M Date Provider Department Center 08/15/2022 KATHY FELICIANO No family history on file Level of Service:77395 DE OFFICE/OUTPATIENT ESTABLISHED MOD MDM 30-39 MIN Reason for Visit and Comments: New Patient [632] Normal [facility] GLYCOHEMOGLOBIN A1Con 2022 ADA RECOMMENDATION SEE BELOW Normal [facility] Comment on above: Result Comment: ADA RECOMMENDED LIMIT 4.0 - 6.0 ADA THERAPEUTIC TARGET < 7.0 ACTION SUGGESTED > 7.0 Performed By: #### A 1C ####[facility] [address] [place], [place] [address]DbDr. Vipul Jean Glucose [Mass/Vol] 197 mg/dL Normal [facility] Comment on above: Performed By: #### A 1C ####[facility] [address] [place], [place] [address]VdNoelle Jean HbA1c (Bld) [Mass fraction] 8.5 % Critically high 4.5-6.2 [facility] Comment on above: Performed By: #### A 1C ####[facility] [address] [place] [id number]. Vipul Jean AMYLASEon 05-01-2022 Amylase [Catalytic activity/Vol] 33 U/L Normal 25-115 [facility] Comment on above: Performed By: #### A MY, HSTROPN, LIPA, CMP #### [facility] [address] [place] [address] Dr. Vipul Jean CBC AUTO DIFFon 05-01-2022 BASO # 0.1 103/ul Normal 0.0-0.1 [facility] Comment on above: Performed By: #### C BC #### [facility] [address] [place] [address] Dr. Vipul Jean Basophils/100 WBC (Bld) 0.6 % Normal 0.2-2.0 [facility] Comment on above: Performed By: #### C BC #### [facility] [address] [place] [address] Dr. Vipul Jean EO # 0.1 103/ul Normal 0.0-0.7 [facility] Comment on above: Performed By: #### C BC #### [facility] [address] [place] [address] Dr. Vipul Jean Eosinophils/100 WBC (Bld) 1.4 % Normal 0.9-7.0 [facility] Comment on above: Performed By: #### C BC #### [facility] [address] [place] [address] Dr. Vipul Jean Erythrocyte distribution width (RBC) [Ratio] 12.2 % Normal 11.0-15.0 [facility] Comment on above: Performed By: #### C BC #### [facility] [address] [place] [address] Dr. Vipul Jean Hematocrit (Bld) [Volume fraction] 46.0 % Normal 42.0-54.0 [facility] Comment on above: Performed By: #### C BC #### [facility] [address] [place] [address] Dr. Vipul Jean Hemoglobin (Bld) [Mass/Vol] 16.7 g/dL Normal 14.0-18.0 [facility] Comment on above: Performed By: #### C BC #### [facility] [address] [place] [address] Dr. Vipul Jean IG # 0.04 10e3/ul Critically high 0.00-0.03 [facility] Comment on above: Performed By: #### C BC #### [facility] [address] [place] [address] Dr. Vipul Jena IG % 0.4 % Normal 0.0-0.5 [facility] Comment on above: Performed By: #### C BC #### [facility] [address] [place] [address] Dr. Vipul Jean LYMPH # 1.7 103/ul Normal 1.2-3.8 [facility] Comment on above: Performed By: #### C BC #### [facility] [address] [place] [address] Dr. Vipul Jean Lymphocytes/100 WBC (Bld) 18.7 % Critically low 20.5-60.0 [facility] Comment on above: Performed By: #### C BC #### [facility] [address] [place] [address] Dr. Vipul Jean MANUAL DIFF REQ NO Normal [facility] Comment on above: Performed By: #### C BC #### [facility] [address] [place] [address] Dr. Vipul Jean MCH (RBC) [Entitic mass] 33.3 pg Normal 25.9-34.0 [facility] Comment on above: Performed By: #### C BC #### [facility] [address] [address] [address] Vipul Jean MCHC (RBC) [Mass/Vol] 36.3 g/dL Critically high 29.9-35.2 [facility] Comment on above: Performed By: #### C BC #### [facility] [address] [place] [address] [address] Vipul Jean MCV (RBC) [Entitic vol] 91.6 fL Normal 80.0-94.0 [facility] Comment on above: Performed By: #### C BC #### [facility] [address] [place] [address] [address] Vipul Jean MONO # 0.6 103/ul Normal 0.3-0.8 [facility] Comment on above: Performed By: #### C BC #### [facility] [address] [place] [address] Dr. Vipul Jean Monocytes/100 WBC (Bld) 6.9 % Normal 1.7-12.0 [facility] Comment on above: Performed By: #### C BC #### [facility] [address] [place] [address] [address] Vipul Jean NEUT # 6.5 103/ul Normal 1.4-6.5 [facility] Comment on above: Performed By: #### C BC #### [facility] [address] [place] [address] Dr. Vipul Jean Neutrophils/100 WBC (Bld) 72.0 % Normal 43.0-75.0 [facility] Comment on above: Performed By: #### C BC #### [facility] [address] [place] [address] [address] Vipul Jean Platelet mean volume (Bld) [Entitic vol] 10.5 fL Normal 9.5-13.5 [facility] Comment on above: Performed By: #### C BC #### [facility] [address] [place] [address] [address] Vipul Jean PLT 125 103/ul Critically low 150-450 [facility] Comment on above: Performed By: #### C BC #### [facility] [address] [place] [address] [address] Vipul Jean RBC 5.02 106/ul Normal 4.70-6.10 [facility] Comment on above: Performed By: #### C BC #### [facility] [address] [place] [address] [address] Vipul Jean WBC 9.0 103/ul Normal 4.0-11.0 [facility] Comment on above: Performed By: #### C BC #### [facility] [id number] Vipul Jean [address] ABD/PELVIS WO CONon [...] HOME MARX Date: 2022-05-01 15:31 Normal [facility] LIPASEon 05-01-2022 Lipase [Catalytic activity/Vol] 62.0 U/L Critically low 73.0-393.0 [facility] Comment on above: Performed By: #### A MY, HSTROPN, LIPA, CMP #### [facility] [address] [place] [address] [address] Vipul Jean PROF 14(COMP METB)on 01-15-2 023 Albumin [Mass/Vol] 3.4 g/dL Normal 3.4-5.0 [facility] Comment on above: Performed By: #### A MY, HSTROPN, LIPA, CMP #### [facility] [address] [place] [address] Dr. Vipul Jean Albumin/Globulin [Mass ratio] 1.1 {ratio} Normal [facility] Comment on above: Performed By: #### A MY, HSTROPN, LIPA, CMP #### [facility] [address] [place] [address] Dr. Vipul Jean ALP [Catalytic activity/Vol] 93 U/L Normal 46-116 [facility] Comment on above: Performed By: #### A MY, HSTROPN, LIPA, CMP #### [facility] [address] [place] [address] Dr. Vipul Jean ALT [Catalytic activity/Vol] 38 U/L Normal 16-63 [facility] Comment on above: Performed By: #### A MY, HSTROPN, LIPA, CMP #### [facility] [address] [place] [address] Dr. Vipul Jean Anion gap [Moles/Vol] 10.6 mmol/L Normal [facility] Comment on above: Performed By: #### A MY, HSTROPN, LIPA, CMP #### [facility] [address] [place] [address] Dr. Vipul Jean AST [Catalytic activity/Vol] 29 U/L Normal 15-37 [facility] Comment on above: Performed By: #### A MY, HSTROPN, LIPA, CMP #### [facility] [address] [address] [address] Vipul Jean Bilirubin [Mass/Vol] 0.6 mg/dL Normal 0.2-1.0 [facility] Comment on above: Performed By: #### A MY, HSTROPN, LIPA, CMP #### [facility] [address] [place] [address] Dr. Vipul Jean Calcium [Mass/Vol] 10.0 mg/dL Normal 8.5-10.1 [facility] Comment on above: Performed By: #### A NICHOL HSTROPTomas LIPA, CMP #### [facility] [address] [address] [address] Vipul Jean Chloride [Moles/Vol] 105 mmol/L Normal 98-107 [facility] Comment on above: Performed By: #### A NICHOL HSTROPN, LIPA, CMP #### [facility] [address] [place] [address] [address] Vipul Jean CO2 [Moles/Vol] 24.6 mmol/L Normal 21.0-32.0 [facility] Comment on above: Performed By: #### A NICHOL HSTROPN, LIPA, CMP #### [facility] [address] [place] [address] Dr. Viupl Jean Creatinine [Mass/Vol] 1.08 mg/dL Normal 0.70-1.30 [facility] Comment on above: Performed By: #### A NICHOL, HSTROPN, LIPA, CMP #### [facility] [address] [place] [address] Dr. Vipul Jean EGFR-AF LIBYAN >60 Normal >=60 [facility] Comment on above: Performed By: #### A NICHOL HSTROPN, LIPA, CMP #### [facility] [address] [place] [address] Dr. Vipul Jean EGFR-NON AF LIBYAN >60 Normal >=60 [facility] Comment on above: Performed By: #### A NICHOL, HSTROPN, LIPA, CMP #### [facility] [address] [place] [address] Dr. Vipul Jean Globulin (S) [Mass/Vol] 3.2 g/dL Normal [facility] Comment on above: Performed By: #### A NICHOL, HSTROPN, LIPA, CMP #### [facility] [address] [place] [address] [address] Vipul Jean Glucose [Mass/Vol] 215 mg/dL Critically high 74-106 [facility] Comment on above: Performed By: #### A MY, HSTROPN, LIPA, CMP #### [facility] [address] [address] [address] Vipul Jean Potassium [Moles/Vol] 4.2 mmol/L Normal 3.5-5.1 [facility] Comment on above: Performed By: #### A MY, HSTROPN, LIPA, CMP #### [facility] [address] [place] [address] [address] Vipul Jean Protein [Mass/Vol] 6.6 g/dL Normal 6.4-8.[address] [facility] Comment on above: Performed By: #### A MY, HSTROPN, LIPA, CMP #### [facility] [address] [place] [address] Dr. Vipul Jean Sodium [Moles/Vol] 136 mmol/L Normal 136-[address] [facility] Comment on above: Performed By: #### A MY, HSTROPN, LIPA, CMP #### [facility] [address] [place] [address] Dr. Vipul Jean Urea nitrogen [Mass/Vol] 16.0 mg/dL Normal 7.0-18.0 [facility] Comment on above: Performed By: #### A MY, HSTROPN, LIPA, CMP #### [facility] [address] [place] [address] Dr. Vipul Jean Urea nitrogen/Creatinine [Mass ratio] 14.8 mg/mg Normal [facility] Comment on above: Performed By: #### A MY, HSTROPN, LIPA, CMP #### [facility] [address] [place] [address] Dr. Vipul Jean TROPONIN, HIGH SENSITIVITYon 05-01-2022 HSTROP 21.4 pg/mL Normal 4.0-76.1 [facility] Comment on above: Result Comment: CUT- OFF POINTS HAVE BEEN ESTABLISHED BASED ON THE FOURTH UNIVERSAL DEFINITIONS OF MYOCARDIAL INFARCTION. THE UPPER REFERENCE LIMIT (URL) OF TROPONIN, DEFINED THE 99TH PERCENTILE OF cTnI DISTRIBUTION IN A REFERENCE POPULATION, HAS BEEN CONFIRMED THE DECISION THRESHOLD FOR [place] DIAGNOSIS. Performed By: #### A MY, HSTROPN, LIPA, CMP #### [facility] [address] [address] [address] Vipul Jean CBC AUTO DIFFon 02-14-2022 BASO # 0.1 103/ul Normal 0.0-0.1 [facility] Comment on above: Performed By: #### C BC #### [facility] [address] [address] [address] Vipul Jean Basophils/100 WBC (Bld) 0.6 % Normal 0.2-2.0 [facility] Comment on above: Performed By: #### C BC #### [facility] [address] [place] [address] [address] Vipul Jean EO # 0.1 103/ul Normal 0.0-0.7 [facility] Comment on above: Performed By: #### C BC #### [facility] [address] [place] [address] [address] Vipul Jean Eosinophils/100 WBC (Bld) 1.6 % Normal 0.9-7.0 [facility] Comment on above: Performed By: #### C BC #### [facility] [address] [place] [address] Dr. Vipul Jean Erythrocyte distribution width (RBC) [Ratio] 12.1 % Normal 11.0-15.0 [facility] Comment on above: Performed By: #### C BC #### [facility] [address] [place] [address] Dr. Vipul Jean Hematocrit (Bld) [Volume fraction] 47.9 % Normal 42.0-54.0 [facility] Comment on above: Performed By: #### C BC #### [facility] [address] [place] [address] [address] Vipul Jean Hemoglobin (Bld) [Mass/Vol] 17.1 g/dL Normal 14.0-18.0 [facility] Comment on above: Performed By: #### C BC #### [facility] [address] [place] [address] [address] Vipul Jean IG # 0.03 10e3/ul Normal 0.00-0.03 [facility] Comment on above: Performed By: #### C BC #### [facility] [address] [place] [address] Dr. Vipul Jean IG % 0.4 % Normal 0.0-0.5 [facility] Comment on above: Performed By: #### C BC #### [facility] [address] [place] [address] Dr. Vipul Jean LYMPH # 1.8 103/ul Normal 1.2-3.8 [facility] Comment on above: Performed By: #### C BC #### [facility] [address] [place] [address] Dr. Vipul Jean Lymphocytes/100 WBC (Bld) 22.4 % Normal 20.5-60.0 [facility] Comment on above: Performed By: #### C BC #### [facility] [address] [place] [address] Dr. Vipul Jean MANUAL DIFF REQ NO Normal [facility] Comment on above: Performed By: #### C BC #### [facility] [address] [place] [address] Dr. Vipul Jean MCH (RBC) [Entitic mass] 33.0 pg Normal 25.9-34.0 [facility] Comment on above: Performed By: #### C BC #### [facility] [address] [place] [address] Dr. Vipul Jean MCHC (RBC) [Mass/Vol] 35.7 g/dL Critically high 29.9-35.2 [facility] Comment on above: Performed By: #### C BC #### [facility] [address] [place] [address] Dr. Vipul Jean MCV (RBC) [Entitic vol] 92.5 fL Normal 80.0-94.0 [facility] Comment on above: Performed By: #### C BC #### [facility] [address] [place] [address] Dr. Vipul Jean MONO # 0.6 103/ul Normal 0.3-0.8 [facility] Comment on above: Performed By: #### C BC #### [facility] [address] [place] [address] Dr. Vipul Jean Monocytes/100 WBC (Bld) 7.0 % Normal 1.7-12.0 [facility] Comment on above: Performed By: #### C BC #### [facility] [address] [place] [address] Dr. Vipul Jean NEUT # 5.5 103/ul Normal 1.4-6.5 [facility] Comment on above: Performed By: #### C BC #### [facility] [address] [address] [address] Vipul Jean Neutrophils/100 WBC (Bld) 68.0 % Normal 43.0-75.0 [facility] Comment on above: Performed By: #### C BC #### [facility] [address] [place] [address] Dr. Vipul Jean Platelet mean volume (Bld) [Entitic vol] 11.0 fL Normal 9.5-13.5 [facility] Comment on above: Performed By: #### C BC #### [facility] [address] [place] [address] Dr. Vipul Jean PLT 101 103/ul Critically low 150-450 [facility] Comment on above: Performed By: #### C BC #### [facility] [address] [place] [address] Dr. Vipul Jean RBC 5.18 106/ul Normal 4.70-6.10 [facility] Comment on above: Performed By: #### C BC #### [facility] [address] [place] [address] Dr. Vipul Jean WBC 8.1 103/ul Normal 4.0-11.0 [facility] Comment on above: Performed By: #### C BC #### [facility] [address] [place] [address] Dr. Vipul Jean CRPon 02-14-2022 CRP [Mass/Vol] mg/L Normal <=1.0 [facility] Comment on above: Performed By: #### C RP, URIC #### [facility] [address] [place], [place] [address] Dr. Vipul Jean URIC ACID SERUMon 02-14-2022 Urate [Mass/Vol] 4.4 mg/dL Normal 3.5-7.2 [facility] Comment on above: Performed By: #### C RP, URIC #### [facility] [address] [place], [place] [address] Dr. Vipul Jean XR ANKLE LT MIN [...] CNOVSP Visit (SP) Office (HEMAC[facility]) Ko BARROS ELISE Canas ([id number]) 1950 MDate Time Provider Department06/15/17 3:45 PM CAREY TREVIÑO During your visit today, we recorded the following information about you: Temperature Pulse Respiration Blood pressure 97 degrees 53/minute 18/minute 149/69 Weight Height 92.8 kg 1.676 Baldemar Treviño MD 06/15/2017 3:50 PM SignedHPAlisabrad Barros is a 67 year old male [...] kg (204 lb 9.6 oz) BMI 33.02 kg/f1Talhqby Appearance: alert and oriented, appearing in no [...] ABS GRAN CT + CBC (FOR REMOTE [facility] USE)2. S/P CABG x 5 - ICD9: V45.81, ICD10: Z95.1See above3. Undescended left testicle - ICD9: 752.51, ICD10: Q53.10See Cruz Treviño [facility]erring Provider: AUDREY OSHEA [[id number]]Allergies As of Date: 06/15/2017(No Known Allergies)Date Reviewed: 06/15/2017Reviewed by: Liliane Molina - Fully AssessedReason for Visit: low platelets [Other] Cmt: new patient consultationPrimary Visit Diagnosis:Thrombocytopeni a (HCC) [D69.6] Other Visit Diagnoses: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 left testicle [Q53.10]Order(s):ABS GRAN CT + CBC (FOR REMOTE [facility] USE) [SQRAGCBC] Order #: [id number] FUTUREFollow-up and Disposition History RecordedPrescriptions as of [...] Pharmacy TRAZODONE 100 MG TABLET >> July Molina 06/15/2017 3:27 PM >> MOLINA, JulyJun 15, 2017 3:27 PM Received from: External Pharmacy TRAZODONE 50 MG TABLET >> July Molina 06/15/2017 3:27 PM >> MOLINA, JulyJun 15, 2017 3:27 PM Received from: External PharmacyProblem List As Of Date 06/15/2017 Noted Resolved Thrombocytopenia (HCC) [D69.6] INVALID FOR* S/P CABG x 5 [Z95.1] INVALID FOR* Undescended left testicle [Q53.10] INVALID FOR*Encounter Status:Closed by CAREY TREVIÑO MD on 06/15/17 Normal [facility] PROGRESSon 06-15-2017 PROGRESS HNO ID: [id number] thor: [place]: (none)Author Type: PhysicianType: Progress [...] kg (204 lb 9.6 oz) BMI 33.02 kg/y6Elhzrmn Appearance: alert and oriented, appearing in no [...] ABS GRAN CT + CBC (FOR REMOTE [facility] USE)2. S/P CABG x 5 - ICD9: V45.81, ICD10: Z95.1See above3. Undescended left testicle - ICD9: 752.51, ICD10: Q53.10See Cruz Treviño MD Normal [facility] Remote Abs Gran + CBC (for [facility] use only)on 06-15-2017 Absol Gran Count 5.25 k/uL Normal 1.45-7.50 Fe [facility] Erythrocyte distribution width Auto Ratio (RBC) 12.4 % Normal 11.5-15.0 [facility] Erythrocytes (RBC) 4.87 10*6/uL Normal 4.20-6.00 [facility] Hematocrit (HCT) 45.5 % Normal 39.0-51.0 [facility] Hemoglobin mass conc (Bld) 15.7 g/dL Normal 13.0-17.0 [facility] MCH 32.2 pG Normal 26.0-34.0 [facility] MCHC mass conc (RBC) 34.5 g/dL Normal 30.5-36.0 [facility] [facility] MCV 93.4 fL Normal 80.0-100.0 [facility] Platelet mean volume (PMV) 10.8 fL Normal 9.0-12.7 [facility] Platelets 116 10*3/uL Low 150-400 [facility] WBC (Leukocytes) 7.93 10*3/uL Normal 3.70-11.00 [facility] Encounters Encounter Date Encounter Type Care Provider Facility Start: 09-06-2023 End: 09-06-2023 ambulatory TERRANCE HORTON Not Available Start: 08-21-2023 End: 08-21-2023 ambulatory KARINA PARKINSON Not Available Start: 06-28-2023 End: 06-28-2023 ambulatory TERRANCE HORTON Not Available Start: 06-16-2023 End: 07-17-2023 ambulatory SHINE Reynolds [facility] Start: 06-02-2023 End: 06-02-2023 ambulatory [facility] Start: 05-25-2023 End: 06-16-2023 ambulatory [facility] Start: 05-23-2023 End: 05-28-2023 Emergency department patient visit [facility] Start: 04-24-2023 End: 04-24-2023 ambulatory TERRANCE HORTON Not Available Start: 03-02-2023 End: 03-02-2023 ambulatory KARINA PARKINSON Not Available Start: 01-23-2023 End: 01-23-2023 [facility] Start: 08-15-2022 End: 08-15-2022 ambulatory [facility] Start: 07-27-2022 End: 07-28-[address] TERRANCE HORTON Facility:[facility] Start: 05-01-2022 End: 05-01-[address] TERRANCE HORTON Facility:[facility] Start: 02-14-2022 End: 02-14-[address] TERRANCE HORTON Facility:[facility] Start: 06-15-2017 End: 06-16-2017 Ambulatory CAREY Brad MICAHNORBERTO [facility] Payers Date Payer Category Payer Medicare [id number] 1950 Unknown [id number] 2.16.84 [id number] 1950 Unknown [id number] 2.16.84 [id number] 1950 Unknown [id number] 2.16.84 [id number] 1950 Unknown [id number] 2.16.8 [id number] 1950 Unknown [id number] 2.16.8 [id number] 1950 Unknown [id number] 2.16.8 [id number] 1950 Unknown [id number] 2.16.84 [id number] 1950 Unknown [id number] 2.16.84 [id number] 1950 Unknown [id number] 2.16.84 [id number] 1950 Unknown [id number] 2.16.84 [id number] 1950 Unknown [id number] 2.16.840 .[id number] Progress note 06-02-2023 Note Date & Type Note Facility 06-02-2023 Note error [facility] Progress note 06-02-2023 Note Date & Type Note Facility 06-02-2023 Note [facility] Chief Complaint: establish care HPI: James Barros is a 72 y.o. male with a past medical history including HTN, HLD, COPD, and CAD s/p CABG in 2010. He was referred to Cardiology clinic to establish care because his previous radiation officer (Dr. 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 Patient presents today for [...] cessation. I emphasized (more content not included)... [facility] Progress note 01-23-2023 Note Date & Type Note Facility 01-23-2023 Note Cardiology Clinic No te Subjective James Barros is a 72 y.o. year old male patient with HTN, HLD, COPD, and CAD s/p CABG in 2010 seen in follow-up. Patient Active Problem List Diagnosis S/P CABG x 5 Thrombocytopenia ([facility]) Type 2 diabetes mellitus without complication, without long-term current use of insulin ([facility]) Undescended left testicle Family History Problem [...] clinic to establish care because his previous radiation officer (Dr. 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 Update: 08/15/2022 Patient adamantly [...] for this visit: Coronary artery disease involving [place] coronary artery of [place] heart with angina pectoris ([facility]) Essential hypertension Mixed hyperlipidemia Hx of CABG Chronic obstructive pulmonary disease, unspecified COPD type ([facility]) Tobacco dependence Intermittent claudication ([facility]) Plan 1. Coronary artery disease -Multivessel [...] of twice daily. (more content not included)... [facility] Progress note 01-23-2023 Note Date & Type [...] All other systems reviewed and are negative. [facility] Progress note 08-15-2022 Note Date & Type Note Facility 08-15-2022 Note Cardiology Clinic No te Chief Complaint: establish care HPI: James Barros is a 72 y.o. male with a past medical history including HTN, HLD, COPD, and CAD s/p CABG in 2010. He is referred to Cardiology clinic to establish care because his previous radiation officer (Dr. 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 Patient adamantly denies any [...] or concerns. Kathy Paz MD Interventional Cardiology [facility] Summary Purpose Family History No [...] content) DATE CREATED AUTHOR 10/06/2017 [facility] DATE CREATED AUTHOR AUTHOR'S ORGANIZ ATION 08/01/2022 [facility] DATE CREATED AUTHOR AUTHOR'S ORGANIZ ATION 05/29/2023 [facility] DATE CREATED AUTHOR AUTHOR'S ORGANIZ ATION 06/04/2023 [facility] DATE CREATED AUTHOR AUTHOR'S ORGANIZ ATION 07/17/2023 [facility] DATE CREATED AUTHOR AUTHOR'S ORGANIZ ATION 09/08/2023 [facility] EPIC FOR RECORDS PERTAINING [...] BE BASED ON THE PRIMARY CLINICAL RECORDS. [employer] provides no warranty or guarantee of the accuracy or completeness of information in this document.
[2023-09-18 16:32] LABS: Glucometer 238 mg/dL (74-106)
--- NOTE | 2023-09-18 17:31 | ED.NEUROSD1 ---
HPI - Neuro Symptoms/Deficit General Chief Complaint: Altered Mental Status Stated Complaint: confusion Time Seen by Provider: 09/18/23 17:19 Source: patient Source comment: Mode of arrival: walk-in Limitations: no limitations History of Present Illness HPI Narrative: 73-year-old male presents to the emergency department with with concern about patient displaying intermittent episodes of confusion. He has been having intermittent episodes since May, though has been a little bit worse this past month. Patient states he sometimes gets confused as to where he is. States, in general has been forgetful. He has been evaluated in the emergency department 4 times this past year. states he does not eat very well. Only eats sweets. Does drink a lot of fluids. Denies headache, chest pain, shortness of breath, focal weakness. Quality:?As above Severity:?Moderate Timing:?As above, intermittent Context: Normal setting and activity? Modifying factors:?None Associated symptoms: None Related Data Home Medications ?Medication ?Instructions ?Recorded ?Confirmed aspirin 81 mg tablet,delayed 81 mg PO DAILY 11/20/22 09/18/23 release (Adult Aspirin Regimen) metformin 500 mg tablet 1,000 mg PO BIDWM 11/20/22 09/18/23 rosuvastatin 20 mg tablet 20 mg PO DAILY 11/20/22 09/18/23 Previous Rx's ?Medication ?Instructions ?Recorded lisinopril 10 mg tablet 10 mg PO QD 30 days #30 tabs 08/10/23 Allergies Allergy/AdvReac Type Severity Reaction Status Date / Time No Known Drug Allergies Allergy Verified 09/18/23 16:30 Review of Systems ROS Narrative CONST: + decreased appetite. Denies fever, chills HENT: Denies congestion, sore throat EYES: Denies eye redness, visual disturbance RESP: Denies cough, shortness of breath CV: Denies chest pain, palpitations GI: Denies abd pain, nausea, vomiting : Denies dysuria, flank pain MS: Denies back pain, myalgias SKIN: Denies color change, rash NEURO: Denies dizziness, facial asymmetry, headaches, light-headedness, numbness, seizures, syncope, tremors, weakness PSYCHIATRIC: + confusion. Denies agitation PFSH PFS Medical History Type 2 diabetes mellitus ?E11.9 - Type 2 diabetes mellitus without complications (ICD-10) Chronic vertigo ?R42 - Dizziness and giddiness (ICD-10) Dementia ?F03.90 - Unspecified dementia, unspecified severity, without behavioral disturbance, psychotic disturbance, mood disturbance, and anxiety (ICD-10) HLD (hyperlipidemia) ?E78.5 - Hyperlipidemia, unspecified (ICD-10) HTN (hypertension) ?I10 - Essential (primary) hypertension (ICD-10) Vertigo ?R42 - Dizziness and giddiness (ICD-10) Tremor ?R25.1 - Tremor, unspecified (ICD-10) CAD (coronary artery disease), [place] coronary artery ?I25.10 - Atherosclerotic heart disease of [place] coronary artery without angina pectoris (ICD-10) Chest pain ?R07.9 - Chest pain, unspecified (ICD-10) Visual hallucinations ?R44.1 - Visual hallucinations (ICD-10) Vision loss, bilateral ?H54.3 - Unqualified visual loss, both eyes (ICD-10) Surgical History Hx of CABG ?Z95.1 - Presence of aortocoronary bypass graft (ICD-10) Social History Within the past year, how often did you have a drink containing alcohol: never Score interpretation: A score less than 4 is consistent with normal alcohol consumption. Smoking status: Current every day smoker Nicotine containing products detail: 1 pack daily Non-prescribed substance use: denies use Highest level of school completed/degree received: Associate degree: occupational, technical, vocational program Are you now , , , , never or living with a partner: In a typical week, how many times do you talk on the telephone with family, friends, or neighbors: twice per week How often do you get together with friends or relatives: once per week Little interest or pleasure in doing things: not at all Feeling down, depressed, or hopeless: not at all Feel stressed/tense/nervous/anxious/difficulty sleeping: not at all Do you think of yourself as: straight/heterosexual Gender Identity: male Exam Narrative Exam Narrative: Vital signs reviewed Nurses notes noted CONST: Nontoxic, well appearing, well nourished, in no distress.? No diaphoresis.?? HENT: normocephalic, atraumatic, moist mucous membrane, no abnormalities of the nose noted, hearing normal, no facial droop EYES: PERRL, EOMI.? normal appearing conjunctiva, no apparent discharge bilat NECK: normal appearance CV: normal rate, regular rhythm, no murmur RESP: normal effort, speaking in complete sentences. Lung sounds clear and equal bilat.? No wheezes, rales, rhonchi GI: normal bowel sounds, soft, nontender, no distension : no CVA tenderness MS: no edema, injury SKIN: no pallor NEURO: A&Ox 3, GCS = 15, no sensory, motor deficits.? CN II-XII normal as tested. NIH = 0.? No abnormalities noted with coordination. Top Lift Trimmer, push, pull are strong equal bilaterally PSYCH: normal mood, affect.? Normal speech.? Memory intact Constitutional Vital Signs, click to edit/add: Last Vital Signs Temp 97.8 F 09/18/23 17:28 Pulse 67 09/18/23 20:48 Resp 16 09/18/23 20:48 BP 118/62 09/18/23 20:48 Pulse Ox 97 09/18/23 20:48 O2 Del Method Room Air 09/18/23 16:24 Course Consultations Consultation #1: Patient discussed with MARLIN Will who is agreeable with admission to the intensive care unit. Time: 21:30 Vital Signs Vital signs: Vital Signs Pulse Rate 84 09/18/23 16:24 Respiratory Rate 16 09/18/23 16:24 Blood Pressure 129/68 09/18/23 16:24 Pulse Oximetry 99 09/18/23 16:24 Oxygen Delivery Method Room Air 09/18/23 16:24 Temperature 97.8 F 09/18/23 17:28 Pulse Rate 67 09/18/23 20:48 Respiratory Rate 16 09/18/23 20:48 Blood Pressure 118/62 09/18/23 20:48 Pulse Oximetry 97 09/18/23 20:48 Oxygen Delivery Method Room Air 09/18/23 16:24 MDM - Neuro Symptoms/Deficit MDM Narrative Medical decision making narrative: This is a pleasant 73-year-old male who presents to the emergency department with , who also provides history, with complaint of intermittent confusion. Has been forgetful. feels like it is getting worse. Dementia has been discussed, but has not had further workup on this. states he does not eat very well. Does eat a lot of sweets. Has been drinking well. thinks he may be drinking too much. He is a cigarette smoker. Denies any other complaints. On arrival, afebrile, vital signs are stable. On exam, nontoxic patient in no distress. Poor dentition. No other remarkable findings on HEENT exam. No focal findings. Cranial nerves II through XII grossly intact. Heart regular rate and rhythm. Lung sounds clear and equal bilaterally. EKG reveals no acute or concerning changes. [id number], Labs reveal sodium of 118. No leukocytosis, anemia, thrombocytopenia, electrolyte imbalance, renal impairment. LFTs unremarkable. Myoglobin 71. Troponin 14.3. CK within normal limits. Urinalysis shows no evidence of infection. CT head reveals no acute findings, per radiologist Chest x-ray reveals no acute findings, per radiologist. Favor hyponatremia, confusion, failure to thrive UTI, ICH less likely based on imaging, laboratory studies Patient given gentle IV hydration at 100 mL an hour Patient otherwise remained stable Disposition ? Plan: Patient will be admitted. Condition at time of disposition: stable ? PLEASE NOTE: Portions of the medical record may have been produced using electronic flame cutting supervisor and may contain errors with respect to translation of words which may not have been identified prior to finalization of the chart. Medical Records Attestation: I reviewed the patient's medical records. Lab Data Attestation: I reviewed the patient's lab results. Labs: Lab Results 09/18/23 09/18/23 09/18/23 Range/Units 16:30 17:25 20:15 WBC 9.7 (4.0-11.0) 10^3/uL RBC 4.36 L (4.70-6.10) 10^6/uL Hgb 14.3 (14.0-18.0) g/dL Hct 39.1 L (42.0-54.0) % MCV 89.7 (80.0-94.0) fL MCH 32.8 (25.9-34.0) pg MCHC 36.6 H (29.9-35.2) g/dL RDW 12.1 (11.0-15.0) % Plt Count 149 L (150-450) 10^3/uL MPV 10.6 (9.5-13.5) fL Neut % (Auto) 73.4 (43.0-75.0) % Lymph % (Auto) 18.0 L (20.5-60.0) % [place] % (Auto) 6.8 (1.7-12.0) % Eos % (Auto) 0.9 (0.9-7.0) % Baso % (Auto) 0.4 (0.2-2.0) % Neut # (Auto) 7.1 H (1.4-6.5) 10^3/uL Lymph # (Auto) 1.8 (1.2-3.8) 10^3/uL [place] # (Auto) 0.7 (0.3-0.8) 10^3/uL Eos # (Auto) 0.1 (0.0-0.7) 10^3/uL Baso # (Auto) 0.0 (0.0-0.1) 10^3/uL Abs Immat Gran (auto) 0.05 H (0.00-0.03) 10^3/uL Imm/Tot Granulo (auto) 0.5 (0.0-0.5) % Sodium 118 L* (136-145) mmol/L Potassium 4.2 (3.5-5.1) mmol/L Chloride 87 L (98-107) mmol/L Carbon Dioxide 20.3 L (21.0-32.0) mmol/L Anion Gap 14.9 BUN 16.0 (7.0-18.0) mg/dL Creatinine 1.09 (0.70-1.30) mg/dL Est GFR ( Amer) >60 (>=60) Est GFR (Non-Af Amer) >60 (>=60) BUN/Creatinine Ratio 14.7 Glucose 187 H (74-106) mg/dL Calcium 10.0 (8.5-10.1) mg/dL Total Bilirubin 0.7 (0.2-1.0) mg/dL AST 18 (15-37) U/L ALT 26 (16-63) U/L Alkaline Phosphatase 103 (46-116) U/L Total Creatine Kinase 45 (39-308) U/L Myoglobin 71 (16-96) ng/mL Troponin I High Sens 14.3 (4.0-76.1) pg/mL Total Protein 6.6 (6.4-8.2) g/dL Albumin 3.2 L (3.4-5.0) g/dL Globulin 3.4 g/dL Albumin/Globulin Ratio 0.9 Urine Color Lt. yellow (YELLOW) Urine Clarity Clear (CLEAR) Urine pH 6.0 (5.0-9.0) Ur Specific [place] 1.010 (1.005-1.025) Urine Protein 30 A (NEG/TRACE) mg/dL Urine Glucose (UA) 250 A (NEGATIVE) mg/dL Urine Ketones Negative (NEGATIVE) mg/dL Urine Occult Blood Negative (NEGATIVE) Urine Nitrite Negative (NEGATIVE) Urine Bilirubin Negative (NEGATIVE) Urine Urobilinogen 0.2 (0.2-1.0) EU/dL Ur Leukocyte Esterase Negative (NEGATIVE) Urine RBC None seen (0-2) #/HPF Urine WBC None seen (NONE SEEN) #/HPF Ur Squamous Epith Cells None seen (NONE/RARE) #/LPF Urine Crystals None seen (None Seen) #/HPF Urine Bacteria None seen (NONE SEEN) #/HPF Urine Casts None seen (NONE SEEN) #/LPF Urine Mucus None seen (NONE SEEN) Ur Culture Indicated? No POC Glucose 238 H (74-106) mg/dL Discharge Plan Discharge Chief Complaint: Altered Mental Status Clinical Impression: Acute hyponatremia, Confusion, Adult failure to thrive Patient Disposition: Admitted As Inpatient Time of Disposition Decision: 21:24 Condition: Fair
--- NOTE | 2023-09-18 17:37 | ECG_ITS ---
[facility] Test Date: 2023-09-18 Pat Name: JAMES POPE Department: Room: - Gender: Male Mobile Home Technician: : 1950 Requested By: TERRANCE HORTON Order Number: [id number] Reading MD: ROBSON DUARTE Measurements Intervals Ross Rate: 69 P: 34 RI: 300 QRS: -65 QRSD: 140 T: 90 QT: 396 QTc: 415 Interpretive Statements 1100 Sinus rhythm 2231 First degree AV block 2330 Nonspecific intraventricular conduction block 3633 Inferior myocardial infarction, probably old 9150 abnormal ECG Electronically Signed On 09-18-2023 18:50:45 EDT by ROBSON DUARTE
--- NOTE | 2023-09-18 17:37 | CT_ITS ---
[address] [address] Patient Name: JAMES POPE MRN: [id number] date: 1950 Sex: M Assigned Patient Location: ER Current Patient Location: ER Accession/Order Number: [id number] Exam Date: 09/18/2023 18:20 Report Date: 09/18/2023 20:15 At the request of: JOSE MAGANA Procedure: CT head/brain wo con EXAMINATION: CT head/brain wo con, 09/18/2023 6:20 PM EDT HISTORY: AMS COMPARISON: 08/06/2023 TECHNIQUE: CT scan of the head was performed without IV contrast. CT dose reduction technique was used, including Automated Exposure Control. FINDINGS: BRAIN PARENCHYMA/CSF SPACES: Prominence of the ventricles and sulci compatible with diffuse cerebral atrophy. There is no hemorrhage, mass effect or midline shift. Severe low attenuation in the white matter consistent with chronic microvascular ischemia. PARANASAL SINUSES: Clear. SKULL BASE AND CALVARIUM: Normal. EXTRACRANIAL SOFT TISSUES: Normal. CT/CT head/brain wo con IMPRESSION: 1. No acute intracranial abnormality. 2. Atrophy and chronic white matter small vessel ischemic changes. 3. MRI would be more sensitive for acute infarct if clinically indicated. Electronically authenticated by: YADIRA SMITH Date: 09/18/2023 20:15
--- NOTE | 2023-09-18 17:37 | XR_ITS ---
The [address] [address] Patient Name: JAMES POPE MRN: [id number] date: 1950 Sex: M Assigned Patient Location: ER Current Patient Location: Accession/Order Number: [id number] Exam Date: 09/18/2023 18:20 Report Date: 09/18/2023 20:00 At the request of: JOSE MAGANA Procedure: XR chest 1V EXAM: XR chest 1V CLINICAL INDICATION: AMS TECHNIQUE: Portable frontal semi-erect view of the chest. COMPARISON: 08/06/2023 FINDINGS: Lines and tubes: None. Lungs: No convincing focal infiltrates. No pleural effusion or pneumothorax. Heart: Cardiac and mediastinal contours are unremarkable. No overt pulmonary vascular congestion. Osseous structures: No acute abnormalities. XR/XR chest 1V IMPRESSION: No acute cardiopulmonary process. Electronically authenticated by: ANNIE HORTON Date: 09/18/2023 20:00
[2023-09-18 17:53] LABS: Basophils Percent Auto 0.4 % (0.2-2.0); Eosinophils Absolute Auto 0.1 10^3/uL (0.0-0.7); Eosinophils Percent Auto 0.9 % (0.9-7.0); Hematocrit 39.1 % (42.0-54.0); Hemoglobin 14.3 g/dL (14.0-18.0); Immature Granulocytes Abs Auto 0.05 10^3/uL (0.00-0.03); Immature Granulocytes Pct Auto 0.5 % (0.0-0.5); Lymphocytes Absolute Auto 1.8 10^3/uL (1.2-3.8); Mean Corpuscular HGB Conc 36.6 g/dL (29.9-35.2); Mean Corpuscular Hemoglobin 32.8 pg (25.9-34.0); Mean Corpuscular Volume 89.7 fL (80.0-94.0); Mean Platelet Volume 10.6 fL (9.5-13.5); Monocytes Absolute Auto 0.7 10^3/uL (0.3-0.8); Monocytes Percent Auto 6.8 % (1.7-12.0); Neutrophils Absolute Auto 7.1 10^3/uL (1.4-6.5); Neutrophils Percent Auto 73.4 % (43.0-75.0); Platelet Count 149 10^3/uL (150-450); Red Blood Count 4.36 10^6/uL (4.70-6.10); Red Cell Distribution Width 12.1 % (11.0-15.0); White Blood Count 9.7 10^3/uL (4.0-11.0)
--- NOTE | 2023-09-18 17:54 | PC.NURSE ---
patient brought in with spouse. reports intermittent confusion. states at times he doesnt know where he is and feels confusded about whats going on at times. patient is able to state name, age, events, date correctly. states he has been seen here 4x since May. states he has never been seen or dx with dementia or anything, never seen a neurologist. states he doesnt eat much, but loves hot chocolate, so thats all he has had today. loss of appetite.
[2023-09-18 18:17] LABS: Alanine Aminotransferase 26 U/L (16-63); Albumin Globulin Ratio 0.9; Albumin Level 3.2 g/dL (3.4-5.0); Alkaline Phosphatase 103 U/L (46-116); Anion Gap 14.9; Aspartate Amino Transferase 18 U/L (15-37); BUN Creatinine Ratio 14.7; Bilirubin Total 0.7 mg/dL (0.2-1.0); Carbon Dioxide 20.3 mmol/L (21.0-32.0); Chloride 87 mmol/L (98-107); Estimated GFR (African America >60 (>=60); Estimated GFR (Non-African Ame >60 (>=60); Globulin 3.4 g/dL; Glucose 187 mg/dL (74-106); Potassium 4.2 mmol/L (3.5-5.1); Total Protein 6.6 g/dL (6.4-8.2); Troponin I High Sensitivity 14.3 pg/mL (4.0-76.1)
[2023-09-18 18:42] LABS: Sodium 118 mmol/L (136-145)
[2023-09-18] MEDS: 0.9 % SODIUM CHLORIDE 1,000 ML 100 ML IV (19:25)
[2023-09-18 19:34] LABS: Creatine Kinase 45 U/L (39-308); Myoglobin 71 ng/mL (16-96)
[2023-09-18 20:26] LABS: Bilirubin Urine NEGATIVE (NEGATIVE); Blood Urine NEGATIVE (NEGATIVE); Clarity Urine CLEAR (CLEAR); Color Urine LT. YELLOW (YELLOW); Glucose Urine UA 250 mg/dL (NEGATIVE); Ketones Urine NEGATIVE (NEGATIVE); Leukocyte Esterase Urine NEGATIVE (NEGATIVE); Nitrite Urine NEGATIVE (NEGATIVE); Protein Urine 30 mg/dL (NEG/TRACE); Urobilinogen Urine 0.2 EU/dL (0.2-1.0)
[2023-09-18 20:36] LABS: Bacteria Urine NONE SEEN #/HPF (NONE SEEN); Crystals Seen? None Seen #/HPF (None Seen); Mucus Urine NONE SEEN (NONE SEEN); RBC Urine NONE SEEN #/HPF (0-2); Squamous Epithelial Cell Urine NONE SEEN #/LPF (NONE/RARE); WBC Urine NONE SEEN #/HPF (NONE SEEN)
[2023-09-18 20:37] LABS: Cast Seen? NONE SEEN #/LPF (NONE SEEN); Urine Culture Indicated NO
--- OUTSIDE RECORDS SUMMARY | 2023-09-18 22:35 | XMS_ITS | CCD ---
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 of aspirin; 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: [TRANSFORMER ASSEMBLER CURRENT USE OF ASPIRIN] Onset: 05-03-2022 Episodic Other aftercare (1 source) Other custodial (current) drug therapy; 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: [OTH TRANSFORMER ASSEMBLER CURRENT DRUG THERAPY] Onset: 05-03-2022 Episodic Other aftercare (1 source) USP (current) use of oral hypoglycemic drugs; 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: [TRANSFORMER ASSEMBLER USE ORAL HYPOGLYCEMIC DX] Onset: 05-03-2022 Episodic [...] Range Facility Office Visiton 06-02-2023 Follow-up visit [id number] James Barros 1950 M Date Provider Department Center 06/02/2023 KATHY FELICIANO Family History Problem Relation Age of Onset Heart attack Maternal Grandfather Family Status - Relation Status Age at Maternal Grandfather Level of Service:93299 PA OFFICE/OUTPATIENT ESTABLISHED MOD MDM 30 MIN Normal [facility] Office Visiton 01-23-2023 Follow-up visit [id number] James Barros 1950 M Date Provider Department Center 01/23/2023 SARBJIT BARBOZA Family History Problem Relation Age of Onset Heart attack Maternal Grandfather Family Status - Relation Status Age at Maternal Grandfather Level of Service:60186 PA OFFICE/OUTPATIENT ESTABLISHED MOD MDM 30-39 MIN Normal [facility] Office Visiton 08-15-2022 Follow-up visit [id number] James Barros Floresita 1950 M Date Provider Department Center 08/15/2022 KATHY FELICIANO No family history on file Level of Service:00406 PA OFFICE/OUTPATIENT ESTABLISHED MOD MDM 30-39 MIN Reason for Visit and Comments: New Patient [632] Normal [facility] GLYCOHEMOGLOBIN A1Con 2022 ADA RECOMMENDATION SEE BELOW Normal [facility] Comment on above: Result Comment: ADA RECOMMENDED LIMIT 4.0 - 6.0 ADA THERAPEUTIC TARGET < 7.0 ACTION SUGGESTED > 7.0 Performed By: #### A 1C ####[facility] [address] [place], [place] [address]WkDr. Vipul Jean Glucose [Mass/Vol] 197 mg/dL Normal [facility] Comment on above: Performed By: #### A 1C ####[facility] [address] [place], [place] [address]HuNoelle Jean HbA1c (Bld) [Mass fraction] 8.5 % Critically high 4.5-6.2 [facility] Comment on above: Performed By: #### A 1C ####[facility] [address] [place] [id number]. Vipul Jean AMYLASEon 05-01-2022 Amylase [Catalytic activity/Vol] 33 U/L Normal 25-115 [facility] Comment on above: Performed By: #### A MY, HSTROPN, LIPA, CMP #### [facility] [address] [place] [address] Dr. Vipul Jean CBC AUTO DIFFon 05-01-2022 BASO # 0.1 103/ul Normal 0.0-0.1 [facility] Comment on above: Performed By: #### C BC #### [facility] [address] [place] [address] Dr. Vipul Jean Basophils/100 WBC (Bld) 0.6 % Normal 0.2-2.0 [facility] Comment on above: Performed By: #### C BC #### [facility] [address] [place] [address] Dr. Vipul Jean EO # 0.1 103/ul Normal 0.0-0.7 [facility] Comment on above: Performed By: #### C BC #### [facility] [address] [place] [address] Dr. Vipul Jean Eosinophils/100 WBC (Bld) 1.4 % Normal 0.9-7.0 [facility] Comment on above: Performed By: #### C BC #### [facility] [address] [place] [address] Dr. Vipul Jean Erythrocyte distribution width (RBC) [Ratio] 12.2 % Normal 11.0-15.0 [facility] Comment on above: Performed By: #### C BC #### [facility] [address] [place] [address] Dr. Vipul Jean Hematocrit (Bld) [Volume fraction] 46.0 % Normal 42.0-54.0 [facility] Comment on above: Performed By: #### C BC #### [facility] [address] [place] [address] Dr. Vipul Jean Hemoglobin (Bld) [Mass/Vol] 16.7 g/dL Normal 14.0-18.0 [facility] Comment on above: Performed By: #### C BC #### [facility] [address] [place] [address] Dr. Vipul Jean IG # 0.04 10e3/ul Critically high 0.00-0.03 [facility] Comment on above: Performed By: #### C BC #### [facility] [address] [place] [address] Dr. Vipul Jean IG % 0.4 % Normal 0.0-0.5 [facility] Comment on above: Performed By: #### C BC #### [facility] [address] [place] [address] Dr. Vipul Jean LYMPH # 1.7 103/ul Normal 1.2-3.8 [facility] Comment on above: Performed By: #### C BC #### [facility] [address] [place] [address] Dr. Vipul Jean Lymphocytes/100 WBC (Bld) 18.7 % Critically low 20.5-60.0 [facility] Comment on above: Performed By: #### C BC #### [facility] [address] [place] [address] Dr. Vipul Jean MANUAL DIFF REQ NO Normal [facility] Comment on above: Performed By: #### C BC #### [facility] [address] [place] [address] Dr. Vipul Jean MCH (RBC) [Entitic mass] 33.3 pg Normal 25.9-34.0 [facility] Comment on above: Performed By: #### C BC #### [facility] [address] [address] [address] Vipul Jean MCHC (RBC) [Mass/Vol] 36.3 g/dL Critically high 29.9-35.2 [facility] Comment on above: Performed By: #### C BC #### [facility] [address] [address] [address] Vipul Jean MCV (RBC) [Entitic vol] 91.6 fL Normal 80.0-94.0 [facility] Comment on above: Performed By: #### C BC #### [facility] [address] [address] [address] Vipul Jean MONO # 0.6 103/ul Normal 0.3-0.8 [facility] Comment on above: Performed By: #### C BC #### [facility] [address] [place] [address] Dr. Vipul Jean Monocytes/100 WBC (Bld) 6.9 % Normal 1.7-12.0 [facility] Comment on above: Performed By: #### C BC #### [facility] [address] [address] [address] Vipul Jean NEUT # 6.5 103/ul Normal 1.4-6.5 [facility] Comment on above: Performed By: #### C BC #### [facility] [address] [place] [address] Dr. Vipul Jean Neutrophils/100 WBC (Bld) 72.0 % Normal 43.0-75.0 [facility] Comment on above: Performed By: #### C BC #### [facility] [address] [address] [address] Vipul Jean Platelet mean volume (Bld) [Entitic vol] 10.5 fL Normal 9.5-13.5 [facility] Comment on above: Performed By: #### C BC #### [facility] [address] [address] [address] Vipul Jean PLT 125 103/ul Critically low 150-450 [facility] Comment on above: Performed By: #### C BC #### [facility] [address] [address] [address] Vipul Jean RBC 5.02 106/ul Normal 4.70-6.10 [facility] Comment on above: Performed By: #### C BC #### [facility] [address] [address] [address] Vipul Jean WBC 9.0 103/ul Normal 4.0-11.0 [facility] Comment on above: Performed By: #### C BC #### [facility] [id number] Vipul Jean [address] ABD/PELVIS WO CONon [...] CMP #### [facility] [address] [address] [address] Vipul Jean PROF 14(COMP METB)on 01-15-2 023 Albumin [Mass/Vol] 3.4 g/dL Normal 3.4-5.0 [facility] Comment on above: Performed By: #### A MY, HSTROPN, LIPA, CMP #### [facility] [address] [place] [address] Dr. Vipul Jean Albumin/Globulin [Mass ratio] 1.1 {ratio} Normal [facility] Comment on above: Performed By: #### A MY, HSTROPN, LIPA, CMP #### [facility] [address] [place] [address] Dr. Vipul Jean ALP [Catalytic activity/Vol] 93 U/L Normal 46-116 [facility] Comment on above: Performed By: #### A MY, HSTROPN, LIPA, CMP #### [facility] [address] [place] [address] Dr. Vipul Jean ALT [Catalytic activity/Vol] 38 U/L Normal 16-63 [facility] Comment on above: Performed By: #### A MY, HSTROPN, LIPA, CMP #### [facility] [address] [place] [address] Dr. Vipul Jean Anion gap [Moles/Vol] 10.6 mmol/L Normal [facility] Comment on above: Performed By: #### A MY, HSTROPN, LIPA, CMP #### [facility] [address] [place] [address] Dr. Vipul Jean AST [Catalytic activity/Vol] 29 U/L Normal 15-37 [facility] Comment on above: Performed By: #### A MY, HSTROPN, LIPA, CMP #### [facility] [address] [address] [address] Vipul Jean Bilirubin [Mass/Vol] 0.6 mg/dL Normal 0.2-1.0 [facility] Comment on above: Performed By: #### A MY, HSTROPN, LIPA, CMP #### [facility] [address] [place] [address] Dr. Vipul Jean Calcium [Mass/Vol] 10.0 mg/dL Normal 8.5-10.1 [facility] Comment on above: Performed By: #### A NICHOL HSTROPTomas LIPA, CMP #### [facility] [address] [address] [address] Vipul Jean Chloride [Moles/Vol] 105 mmol/L Normal 98-107 [facility] Comment on above: Performed By: #### A NICHOL HSTROPN, LIPA, CMP #### [facility] [address] [address] [address] Vipul Jean CO2 [Moles/Vol] 24.6 mmol/L Normal 21.0-32.0 [facility] Comment on above: Performed By: #### A NICHOL HSTROPN, LIPA, CMP #### [facility] [address] [place] [address] Dr. Vipul Jean Creatinine [Mass/Vol] 1.08 mg/dL Normal 0.70-1.30 [facility] Comment on above: Performed By: #### A NICHOL, HSTROPN, LIPA, CMP #### [facility] [address] [place] [address] Dr. Vipul Jean EGFR-AF CHADIAN >60 Normal >=60 [facility] Comment on above: Performed By: #### A NICHOL HSTROPN, LIPA, CMP #### [facility] [address] [place] [address] Dr. Vipul Jean EGFR-NON AF CHADIAN >60 Normal >=60 [facility] Comment on above: Performed By: #### A NICHOL, HSTROPN, LIPA, CMP #### [facility] [address] [place] [address] Dr. Vipul Jean Globulin (S) [Mass/Vol] 3.2 g/dL Normal [facility] Comment on above: Performed By: #### A NICHOL, HSTROPN, LIPA, CMP #### [facility] [address] [address] [address] Vipul Jean Glucose [Mass/Vol] 215 mg/dL Critically high 74-106 [facility] Comment on above: Performed By: #### A MY, HSTROPN, LIPA, CMP #### [facility] [address] [address] [address] Vipul Jean Potassium [Moles/Vol] 4.2 mmol/L Normal 3.5-5.1 [facility] Comment on above: Performed By: #### A MY, HSTROPN, LIPA, CMP #### [facility] [address] [address] [address] Vipul Jean Protein [Mass/Vol] 6.6 g/dL Normal 6.4-8.2 [facility] Comment on above: Performed By: #### A MY, HSTROPN, LIPA, CMP #### [facility] [address] [place] [address] Dr. Vipul Jean Sodium [Moles/Vol] 136 mmol/L Normal 136-145 [facility] Comment on above: Performed By: #### A MY, HSTROPN, LIPA, CMP #### [facility] [address] [place] [address] Dr. Vipul Jean Urea nitrogen [Mass/Vol] 16.0 mg/dL Normal 7.0-18.0 [facility] Comment on above: Performed By: #### A MY, HSTROPN, LIPA, CMP #### [facility] [address] [place] [address] Dr. Vipul Jean Urea nitrogen/Creatinine [Mass ratio] 14.8 mg/mg Normal [facility] Comment on above: Performed By: #### A MY, HSTROPN, LIPA, CMP #### [facility] [address] [place] [address] Dr. Vipul Jean TROPONIN, HIGH SENSITIVITYon 05-01-2022 HSTROP 21.4 pg/mL Normal 4.0-76.1 [facility] Comment on above: Result Comment: CUT- OFF POINTS HAVE BEEN ESTABLISHED BASED ON THE FOURTH UNIVERSAL DEFINITIONS OF MYOCARDIAL INFARCTION. THE UPPER REFERENCE LIMIT (URL) OF TROPONIN, DEFINED THE 99TH PERCENTILE OF cTnI DISTRIBUTION IN A REFERENCE POPULATION, HAS BEEN CONFIRMED THE DECISION THRESHOLD FOR [place] DIAGNOSIS. Performed By: #### A MY, HSTROPN, LIPA, CMP #### [facility] [address] [address] [address] Vipul Jean CBC AUTO DIFFon 02-14-2022 BASO # 0.1 103/ul Normal 0.0-0.1 [facility] Comment on above: Performed By: #### C BC #### [facility] [address] [address] [address] Vipul Jean Basophils/100 WBC (Bld) 0.6 % Normal 0.2-2.0 [facility] Comment on above: Performed By: #### C BC #### [facility] [address] [address] [address] Vipul Jean EO # 0.1 103/ul Normal 0.0-0.7 [facility] Comment on above: Performed By: #### C BC #### [facility] [address] [address] [address] Vipul Jean Eosinophils/100 WBC (Bld) 1.6 % Normal 0.9-7.0 [facility] Comment on above: Performed By: #### C BC #### [facility] [address] [place] [address] Dr. Vipul Jean Erythrocyte distribution width (RBC) [Ratio] 12.1 % Normal 11.0-15.0 [facility] Comment on above: Performed By: #### C BC #### [facility] [address] [place] [address] Dr. Vipul Jean Hematocrit (Bld) [Volume fraction] 47.9 % Normal 42.0-54.0 [facility] Comment on above: Performed By: #### C BC #### [facility] [address] [address] [address] Vipul Jean Hemoglobin (Bld) [Mass/Vol] 17.1 g/dL Normal 14.0-18.0 [facility] Comment on above: Performed By: #### C BC #### [facility] [address] [address] [address] Vipul Jean IG # 0.03 10e3/ul Normal 0.00-0.03 [facility] Comment on above: Performed By: #### C BC #### [facility] [address] [place] [address] Dr. Vipul Jean IG % 0.4 % Normal 0.0-0.5 [facility] Comment on above: Performed By: #### C BC #### [facility] [address] [place] [address] Dr. Vipul Jean LYMPH # 1.8 103/ul Normal 1.2-3.8 [facility] Comment on above: Performed By: #### C BC #### [facility] [address] [place] [address] Dr. Vipul Jean Lymphocytes/100 WBC (Bld) 22.4 % Normal 20.5-60.0 [facility] Comment on above: Performed By: #### C BC #### [facility] [address] [place] [address] Dr. Vipul Jean MANUAL DIFF REQ NO Normal [facility] Comment on above: Performed By: #### C BC #### [facility] [address] [place] [address] Dr. Vipul Jean MCH (RBC) [Entitic mass] 33.0 pg Normal 25.9-34.0 [facility] Comment on above: Performed By: #### C BC #### [facility] [address] [place] [address] Dr. Vipul Jean MCHC (RBC) [Mass/Vol] 35.7 g/dL Critically high 29.9-35.2 [facility] Comment on above: Performed By: #### C BC #### [facility] [address] [place] [address] Dr. Vipul Jean MCV (RBC) [Entitic vol] 92.5 fL Normal 80.0-94.0 [facility] Comment on above: Performed By: #### C BC #### [facility] [address] [place] [address] Dr. Vipul Jean MONO # 0.6 103/ul Normal 0.3-0.8 [facility] Comment on above: Performed By: #### C BC #### [facility] [address] [place] [address] Dr. Vipul Jean Monocytes/100 WBC (Bld) 7.0 % Normal 1.7-12.0 [facility] Comment on above: Performed By: #### C BC #### [facility] [address] [place] [address] Dr. Vipul Jean NEUT # 5.5 103/ul Normal 1.4-6.5 [facility] Comment on above: Performed By: #### C BC #### [facility] [address] [address] [address] Vipul Jean Neutrophils/100 WBC (Bld) 68.0 % Normal 43.0-75.0 [facility] Comment on above: Performed By: #### C BC #### [facility] [address] [place] [address] Dr. Vipul Jean Platelet mean volume (Bld) [Entitic vol] 11.0 fL Normal 9.5-13.5 [facility] Comment on above: Performed By: #### C BC #### [facility] [address] [place] [address] Dr. Vipul Jean PLT 101 103/ul Critically low 150-450 [facility] Comment on above: Performed By: #### C BC #### [facility] [address] [place] [address] Dr. Vipul Jean RBC 5.18 106/ul Normal 4.70-6.10 [facility] Comment on above: Performed By: #### C BC #### [facility] [address] [place] [address] Dr. Vipul Jean WBC 8.1 103/ul Normal 4.0-11.0 [facility] Comment on above: Performed By: #### C BC #### [facility] [address] [place] [address] Dr. Vipul Jean CRPon 02-14-2022 CRP [Mass/Vol] mg/L Normal <=1.0 [facility] Comment on above: Performed By: #### C RP, URIC #### [facility] [address] [place], [place] [address] Dr. Vipul Jean URIC ACID SERUMon 02-14-2022 Urate [Mass/Vol] 4.4 mg/dL Normal 3.5-7.2 [facility] Comment on above: Performed By: #### C RP, URIC #### [facility] [address] [place], [place] [address] Dr. Vipul Jean XR ANKLE LT MIN [...] osseous or joint abnormality. Electronically authenticated by: ONRY ALICIA Date: 2022-02-14 15:05 Normal [facility] CNOVSPon 06-15-2017 CNOVSP Visit (SP) Office ([facility]) Ko BARROS ELISE Canas ([id number]) 1950 MDate Time Provider Department06/15/17 3:45 PM [...] kg (204 lb 9.6 oz) BMI 33.02 kg/v0Utkndvs Appearance: alert and oriented, appearing in no [...] ABS GRAN CT + CBC (FOR [facility] USE)2. S/P CABG x 5 - ICD9: V45.81, ICD10: Z95.1See above3. Undescended left testicle - ICD9: 752.51, ICD10: Q53.10See Cruz Treviño [facility]eferring Provider: AUDREY OSHEA [[id number]]Allergies As of Date: 06/15/2017(No Known Allergies)Date Reviewed: 06/15/2017Reviewed by: Liliane Molina - Fully AssessedReason for Visit: low platelets [Other] Cmt: new patient consultationPrimary Visit Diagnosis:Thrombocytopeni a (HCC) [D69.6] Other Visit Diagnoses: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 left testicle [Q53.10]Order(s):ABS GRAN CT + CBC (FOR [facility] USE) [SQRAGCBC] Order #: [id number] FUTUREFollow-up and Disposition History RecordedPrescriptions as of [...] left testicle [Q53.10] INVALID FOR*Encounter Status:Closed by CAERY TREVIÑO MD on 06/15/[address] [facility] PROGRESSon 06-15-2017 PROGRESS HNO ID: [id number] thor: [place]: (none)Author Type: PhysicianType: Progress [...] kg (204 lb 9.6 oz) BMI 33.02 kg/v0Xmswlap Appearance: alert and oriented, appearing in no [...] ABS GRAN CT + CBC (FOR [facility] USE)2. S/P CABG x 5 - ICD9: V45.81, ICD10: Z95.1See above3. Undescended left testicle - ICD9: 752.51, ICD10: Q53.10See Cruz Treviño MD Normal [facility] Remote Abs Gran + CBC (for [facility] use only)on 06-15-2017 Absol Gran Count 5.25 k/uL Normal 1.45-7.50 Fe [facility] Erythrocyte distribution width Auto Ratio (RBC) 12.4 % Normal 11.5-15.0 [facility] Erythrocytes (RBC) 4.87 10*6/uL Normal 4.20-6.00 [facility] Hematocrit (HCT) 45.5 % Normal 39.0-51.0 [facility] Hemoglobin mass conc (Bld) 15.7 g/dL Normal 13.0-17.0 [facility] MCH 32.2 pG Normal 26.0-34.0 [facility] MCHC mass conc (RBC) 34.5 g/dL Normal 30.5-36.0 [facility] MCV 93.4 fL Normal 80.0-100.0 [facility] Platelet mean volume (PMV) 10.8 fL Normal 9.0-12.7 [facility] Platelets 116 10*3/uL Low 150-400 [facility] WBC (Leukocytes) 7.93 10*3/uL Normal 3.70-11.00 [facility] Encounters Encounter Date Encounter Type Care Provider Facility Start: 09-06-2023 End: 09-06-2023 ambulatory TERRANCE HORTON Not Available Start: 08-21-2023 End: 08-21-2023 ambulatory KARINA PARKINSON Not Available Start: 06-28-2023 End: 06-28-2023 ambulatory TERRANCE HORTON Not Available Start: 06-16-2023 End: 07-17-2023 ambulatory SHINE Reynolds [facility] Start: 06-02-2023 End: 06-02-2023 ambulatory [facility] Start: 05-25-2023 End: 06-16-[address] [facility] Start: 05-23-2023 End: 05-28-2023 Emergency department patient visit [facility] Start: 04-24-2023 End: 04-24-2023 ambulatory TERRANCE HORTON Not Available Start: 03-02-2023 End: 03-02-2023 ambulatory KARINA PARKINSON Not Available Start: 01-23-2023 End: 01-23-2023 amb[facility] Start: 08-15-2022 End: 08-15-2022 ambulatory [facility] Start: 07-27-2022 End: 07-28-[address] TERRANCE HORTON Facility:[facility] Start: 05-01-2022 End: 05-01-[address] TERRANCE HORTON Facility:[facility] Start: 02-14-2022 End: 02-14-[address] TERRANCE HORTON Facility:[facility] Start: 06-15-2017 End: 06-16-2017 Ambulatory CAREY [address]O [facility] Payers Date Payer Category Payer Medicare [id number] 1950 Unknown [id number] 2.16.84 [id number] 1950 Unknown [id number] 2.16.84 [id number] 1950 Unknown [id number] 2.16.84 [id number] 1950 Unknown [id number] 2.16.8 [id number] 1950 Unknown [id number] 2.16.8 [id number] 1950 Unknown [id number] 2.16.8 [id number] 1950 Unknown [id number] 2.16.84 [id number] 1950 Unknown [id number] 2.16.84 [id number] 1950 Unknown [id number] 2.16.84 [id number] 1950 Unknown [id number] 2.16.84 [id number] 1950 Unknown [id number] 2.16.840 .[id number] Progress note 06-02-2023 Note Date & Type Note Facility 06-02-2023 Note error [facility] Progress note 06-02-2023 Note Date & Type Note Facility 06-02-2023 Note [facility] No [facility] Chief Complaint: establish care HPI: James Barros is a 72 y.o. male with a past medical history including HTN, HLD, COPD, and CAD s/p CABG in 2010. 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 Patient presents today for [...] cessation. I emphasized (more content not included)... [facility] Progress note 01-23-2023 Note Date & Type Note Facility 01-23-2023 Note [facility] No te Subjective James Barros is a 72 y.o. year old male patient with HTN, HLD, COPD, and CAD s/p CABG in 2010 seen in follow-up. 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 Update: 08/15/2022 Patient adamantly [...] for this visit: Coronary artery disease involving [place] coronary artery of [place] heart with angina pectoris ([facility]) Essential hypertension Mixed hyperlipidemia Hx of CABG Chronic obstructive pulmonary disease, unspecified COPD type ([facility]) Tobacco dependence Intermittent claudication ([facility]) Plan 1. Coronary artery disease [...] of twice daily. (more content not included)... [facility] Progress note 01-23-2023 Note Date & [...] All other systems reviewed and are negative. [facility] Progress note 08-15-2022 Note Date & Type Note Facility 08-15-2022 Note Cardiology Clinic No te Chief Complaint: establish care HPI: James Barros is a 72 y.o. male with a past medical history including HTN, HLD, COPD, and CAD s/p CABG in 2010. 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 Patient adamantly denies any [...] or concerns. Kathy Paz MD Interventional Cardiology [facility] Summary Purpose Family History No Family [...] section and content) DATE CREATED AUTHOR 10/06/2017 [facility] DATE CREATED AUTHOR AUTHOR'S ORGANIZ ATION 08/01/2022 [facility] DATE CREATED AUTHOR AUTHOR'S ORGANIZ ATION 05/29/2023 [facility] DATE CREATED AUTHOR AUTHOR'S ORGANIZ ATION 06/04/[address] [facility] DATE CREATED AUTHOR AUTHOR'S ORGANIZ ATION 07/17/2023 [facility] DATE CREATED AUTHOR AUTHOR'S ORGANIZ ATION 09/08/2023 [facility] EPIC FOR RECORDS [...] BE BASED ON THE PRIMARY CLINICAL RECORDS. [employer] provides no warranty or guarantee of the accuracy or completeness of information in this document.
[2023-09-18 23:22] LABS: Anion Gap 14.6; BUN Creatinine Ratio 12.8; Calcium 10.2 mg/dL (8.5-10.1); Carbon Dioxide 22.5 mmol/L (21.0-32.0); Chloride 88 mmol/L (98-107); Estimated GFR (African America >60 (>=60); Estimated GFR (Non-African Ame >60 (>=60); Glucose 126 mg/dL (74-106); Potassium 4.1 mmol/L (3.5-5.1)
[2023-09-18 23:28] LABS: Sodium 121 mmol/L (136-145)
[2023-09-19] VITALS (40 sets, daily range): BP systolic 59–141; BP diastolic 31–69; PULSE 54–80; TEMP 36.6–37; O2SAT 95–99
[2023-09-19] LABS: Glucometer 134 mg/dL (74-106)
[2023-09-19 00:28] LABS: Creatinine Urine Random 32.65 mg/dL (20.00-300.00); Sodium Urine Random 41 mmol/L (30-90)
[2023-09-19 05:12] LABS: Basophils Absolute Auto 0.1 10^3/uL (0.0-0.1); Basophils Percent Auto 0.7 % (0.2-2.0); Eosinophils Absolute Auto 0.2 10^3/uL (0.0-0.7); Eosinophils Percent Auto 1.9 % (0.9-7.0); Hematocrit 36.3 % (42.0-54.0); Hemoglobin 13.2 g/dL (14.0-18.0); Immature Granulocytes Abs Auto 0.02 10^3/uL (0.00-0.03); Immature Granulocytes Pct Auto 0.2 % (0.0-0.5); Lymphocytes Absolute Auto 2.5 10^3/uL (1.2-3.8); Lymphocytes Percent Auto 29.8 % (20.5-60.0); Mean Corpuscular HGB Conc 36.4 g/dL (29.9-35.2); Mean Corpuscular Hemoglobin 32.8 pg (25.9-34.0); Mean Corpuscular Volume 90.1 fL (80.0-94.0); Mean Platelet Volume 10.6 fL (9.5-13.5); Monocytes Absolute Auto 0.7 10^3/uL (0.3-0.8); Monocytes Percent Auto 7.6 % (1.7-12.0); Neutrophils Absolute Auto 5.1 10^3/uL (1.4-6.5); Neutrophils Percent Auto 59.8 % (43.0-75.0); Platelet Count 132 10^3/uL (150-450); Red Blood Count 4.03 10^6/uL (4.70-6.10); White Blood Count 8.5 10^3/uL (4.0-11.0)
[2023-09-19 05:26] LABS: Lactate/Lactic Acid 0.8 mmol/L (0.4-2.0)
[2023-09-19 05:53] LABS: Alanine Aminotransferase 23 U/L (16-63); Albumin Level 2.9 g/dL (3.4-5.0); Alkaline Phosphatase 88 U/L (46-116); Anion Gap 14.5; Aspartate Amino Transferase 16 U/L (15-37); BUN Creatinine Ratio 12.2; Bilirubin Total 0.8 mg/dL (0.2-1.0); Calcium 9.5 mg/dL (8.5-10.1); Carbon Dioxide 19.6 mmol/L (21.0-32.0); Chloride 91 mmol/L (98-107); Estimated GFR (African America >60 (>=60); Estimated GFR (Non-African Ame >60 (>=60); Globulin 2.9 g/dL; Glucose 126 mg/dL (74-106); Potassium 4.1 mmol/L (3.5-5.1); Total Protein 5.8 g/dL (6.4-8.2)
[2023-09-19 06:02] LABS: Sodium 121 mmol/L (136-145)
[2023-09-19] MEDS: 0.9 % SODIUM CHLORIDE 1,000 ML 100 ML IV ×2 (06:05→12:07)
[2023-09-19 07:42] LABS: Glucometer 123 mg/dL (74-106)
[2023-09-19] MEDS: 0.9 % SODIUM CHLORIDE 1,000 ML 1000 ML IV (07:55)
[2023-09-19] MEDS: SODIUM CHLORIDE 1,000 MG TABLET 1000 MG PO ×3 (08:03→21:53)
[2023-09-19] MEDS: ASPIRIN 81 MG TABLET.DR PO (08:03)
[2023-09-19 08:50] LABS: Thyroid Stimulating Hormone 0.867 uIU/mL (0.358-3.740)
--- NOTE | 2023-09-19 09:30 | CM.NOTE ---
Rounds made with Dr. Godinez, pt sitting up in chair for breakfast. Pt c/o not feeling himself and being disoriented at home. Dr. Godinez discussed with pt about low sodium and side effects from a low sodium. Recheck Chemistry around 11.
--- NOTE | 2023-09-19 10:10 | SWNOTE1 ---
LUPE spoke to pt's over the phone. Pt was at [facility] in [place] for about 2 1/2 weeks. She voiced he has been home for about 3 weeks or so. She stated he has been doing well, just over the last 2 days has been weaker. She voiced he drinks too much pop and that is all he wants to drink. She stated she is going to speak with [facility] to see what sports drinks he should have. She stated some of them have so much sugar. Pt's stated she is not going to buy pop anymore and she is going to put her foot down and make him drink water. She then asked if pt can come home today. LUPE advised her that SW has not heard that pt is discharged. She voiced she really wants him to come home as she just does not have the finances for him to stay at hospital. She stated she is already $2,000 in debt and has a ambulance bill to pay as well. She stated the ICU alone is $1,600 and insurance does not cover everything. LUPE asked pt's if she spoke to patient financial services last time pt was here. She stated she did and they are trying to combine all the bills and see how they can assist. SW offered to have them speak to her again once she comes in, pt's voiced she is not sure. She requested for pt to be able to come home today. SW to reach out to doctor to see if pt is discharged. LUPE then let her know we need PT/OT to evaluate pt to see if he does have any discharge needs. Pt's does NOT want him to go to rehab again, she is open to the possibility of home health. LUPE expressed to her that rehab is covered by insurance, she again voiced she does not want him to go. LUPE reached out to case management and if pt goes home today, will have to sign him out AMA. Pt does have moments of confusion.
--- NOTE | 2023-09-19 10:52 | PM.HP ---
HPI H&P: HPI History of Present Illness Chief complaint: confusion Hyponatremia failure tothrive Narrative: 73-year-old male who currently lives with his was brought in by his for confusion/generalized malaise and weakness. Patient likely has undiagnosed dementia but has not been formally diagnosed as outpatient. Workup in ED revealed severe hyponatremia and patient was admitted to stepdown for treatment of hyponatremia. He had admission for hyponatremia earlier this year and at that time he was on hydrochlorothiazide that was discontinued. He was also asked to discontinue lisinopril because it was felt that his blood pressure was too tightly controlled given his age but it seems like he was still using it. Patient was started on IV fluids with slow/some improvement in his serum sodium from 118 to 121. 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 I initially put fluid restriction on him along with sodium chloride salt tablet 1 g 3 times daily. However he became hypotensive with blood sugar as low as 60/30 and required IV fluid bolus of normal saline. His blood pressure responded well to IV fluid resuscitation. He is follow-up serum sodium is pending at 11 AM. Patient denies chest pain, shortness of breath, cough, abdominal pain, nausea, vomiting, constipation, diarrhea, dysuria. Workup in ED was unremarkable for any underlying infectious etiology with normal chest x-ray and urine analysis. Opioid HPI Opioid Management Most Recent Opioid Data: Last Pain Scale 4 09/19/23 00:00 Last Pain Intensity 6 08/07/23 09:07 Last Pain Assessment 09/19/23 10:00 Last ORT Total Score 0 09/18/23 22:39 Last ORT Risk Category Low Risk 09/18/23 22:39 Review of Systems ROS Status of ROS 10 or more systems reviewed and unremarkable except as noted in history and below [facility] Medical History Type 2 diabetes mellitus ?E11.9 - Type 2 diabetes mellitus without complications (ICD-10) Chronic vertigo ?R42 - Dizziness and giddiness (ICD-10) Dementia ?F03.90 - Unspecified dementia, unspecified severity, without behavioral disturbance, psychotic disturbance, mood disturbance, and anxiety (ICD-10) HLD (hyperlipidemia) ?E78.5 - Hyperlipidemia, unspecified (ICD-10) HTN (hypertension) ?I10 - Essential (primary) hypertension (ICD-10) Vertigo ?R42 - Dizziness and giddiness (ICD-10) Tremor ?R25.1 - Tremor, unspecified (ICD-10) CAD (coronary artery disease), [place] coronary artery ?I25.10 - Atherosclerotic heart disease of [place] coronary artery without angina pectoris (ICD-10) Chest pain ?R07.9 - Chest pain, unspecified (ICD-10) Visual hallucinations ?R44.1 - Visual hallucinations (ICD-10) Vision loss, bilateral ?H54.3 - Unqualified visual loss, both eyes (ICD-10) Surgical History Hx of CABG ?Z95.1 - Presence of aortocoronary bypass graft (ICD-10) Social History Within the past year, how often did you have a drink containing alcohol: never Score interpretation: A score less than 4 is consistent with normal alcohol consumption. Smoking status: Current every day smoker Nicotine containing products detail: 1 pack daily Non-prescribed substance use: denies use Highest level of school completed/degree received: Associate degree: occupational, technical, vocational program Are you now , , , , never or living with a partner: In a typical week, how many times do you talk on the telephone with family, friends, or neighbors: twice per week How often do you get together with friends or relatives: once per week Little interest or pleasure in doing things: not at all Feeling down, depressed, or hopeless: not at all Feel stressed/tense/nervous/anxious/difficulty sleeping: not at all Do you think of yourself as: straight/heterosexual Gender Identity: male Meds Home Medications and Allergies Home Medications ?Medication ?Instructions ?Recorded ?Confirmed ?Type aspirin 81 mg tablet,delayed 81 mg PO DAILY 11/20/22 09/18/23 History release (Adult Aspirin Regimen) metformin 500 mg tablet 1,000 mg PO BIDWM 11/20/22 09/18/23 History rosuvastatin 20 mg tablet 20 mg PO DAILY 11/20/22 09/18/23 History lisinopril 10 mg tablet 10 mg PO QD 30 days #30 tabs 08/10/23 09/18/23 Rx Allergies Allergy/AdvReac Type Severity Reaction Status Date / Time No Known Drug Allergies Allergy Verified 09/18/23 16:30 Exam Constitutional Vital Signs, click to edit/add: Last Vital Signs Temp 97.9 F 09/19/23 07:52 Pulse 68 09/19/23 10:00 Resp 21 H 09/19/23 07:57 BP 71/51 L 09/19/23 07:57 Pulse Ox 97 09/19/23 07:41 O2 Del Method Room Air 09/19/23 07:52 Documenting provider has reviewed patient's vital signs: yes Common normals: no apparent distress and oriented x3 General appearance: cooperative HENMT Common normals: normocephalic and head/scalp atraumatic Head and scalp: normocephalic and atraumatic Respiratory Common normals: normal respiratory effort and clear to auscultation bilaterally Effort & inspection: able to speak in complete sentences Auscultation: clear to auscultation bilaterally Cardio Common normals: regular rate, S1 normal heart sound and S2 normal heart sound Rate: regular rate Heart sounds: S1 normal and S2 normal GI Common normals: Normal to inspection, nondistended, normoactive bowel sounds present, soft to palpation, non-tender and no hepatosplenomegaly Palpation: soft and no hepatosplenomegaly Extremity Common normals: no clubbing, cyanosis or edema Neuro Common normals: moves all extremities and no focal motor deficits Sensorium/orientation: oriented to person and oriented to time Speech: speech normal Gait (neuro): unable to assess gait Other: AAOX 2 Psych Common normals: mental status grossly normal, denies hallucinations, denies homicidal ideation and denies suicidal ideation Results Labs Labs: Short CBC 09/18/23 09/19/23 Range/Units 17:25 04:52 WBC 9.7 8.5 (4.0-11.0) 10^3/uL Hgb 14.3 13.2 L (14.0-18.0) g/dL Hct 39.1 L 36.3 L (42.0-54.0) % Plt Count 149 L 132 L (150-450) 10^3/uL BMP 09/18/23 09/18/23 09/19/23 17:25 23:06 04:52 Sodium 118 L* 121 L* 121 L* Potassium 4.2 4.1 4.1 Chloride 87 L 88 L 91 L Carbon Dioxide 20.3 L 22.5 19.6 L BUN 16.0 14.0 12.0 Creatinine 1.09 1.09 0.98 Glucose 187 H 126 H 126 H Calcium 10.0 10.2 H 9.5 Cardiac Enzymes 09/18/23 Range/Units 17:25 Total Creatine Kinase 45 (39-308) U/L Liver Function 09/18/23 09/19/23 Range/Units 17:25 04:52 Total Bilirubin 0.7 0.8 (0.2-1.0) mg/dL AST 18 16 (15-37) U/L ALT 26 23 (16-63) U/L Alkaline Phosphatase 103 88 (46-116) U/L Albumin 3.2 L 2.9 L (3.4-5.0) g/dL Urine 09/18/23 Range/Units 20:15 Urine Color Lt. yellow (YELLOW) Urine Clarity Clear (CLEAR) Urine pH 6.0 (5.0-9.0) Ur Specific Porter 1.010 (1.005-1.025) Urine Protein 30 A (NEG/TRACE) mg/dL Urine Glucose (UA) 250 A (NEGATIVE) mg/dL Assessment and Plan Assessment and Plan (1) Acute hyponatremia: Assessment and Plan: Hyponatremia likely due to combination of hypovolemia and SIADH. Continue with gentle IV hydration. Monitors electrolytes closely. Started on salt tablets sodium chloride 1 g 3 times daily. (2) Hypotension due to hypovolemia: Assessment and Plan: Hypotension with blood pressure in 60s earlier today that improved with IV hydration. Monitor blood pressure closely. Continue with gentle IV hydration. (3) Type 2 diabetes mellitus: Assessment and Plan: Sliding scale insulin while inpatient. Hold metformin Qualifiers: Diabetes mellitus intermodal customer service insulin use: without intermodal customer service use Diabetes mellitus complication status: without complication Qualified Code(s): E11.9 - Type 2 diabetes mellitus without complications (4) Dementia: Assessment and Plan: Not formally diagnosed as outpatient. Will need to follow-up with neurology as out patient Qualifiers: Dementia type: Alzheimer's Alzheimer's disease onset: late onset Dementia severity: moderate Dementia behavioral or psychological symptom: with psychotic disturbance Qualified Code(s): G30.1 - Alzheimer's disease with late onset; F02.B2 - Dementia in other diseases classified elsewhere, moderate, with psychotic disturbance (5) HLD (hyperlipidemia): Assessment and Plan: Continue with Crestor. Qualifiers: Hyperlipidemia type: unspecified Qualified Code(s): E78.5 - Hyperlipidemia, unspecified (6) HTN (hypertension): Assessment and Plan: On Lisinopril. This was discontinued on prior admission also but he seems to be using it. Qualifiers: Hypertension type: primary hypertension Qualified Code(s): I10 - Essential (primary) hypertension Plan Patient admitted for symptomatic severe hyponatremia along with hypotension secondary to hypovolemia. He will require inpatient treatment of his hyponatremia and close monitoring of neurological function. He is anticipated to stay for 2 midnights at least as we cannot correct his serum sodium by over 8 mEq in 24 hours due to risk of central pontine myelinolysis.
[2023-09-19 11:17] LABS: Glucometer 166 mg/dL (74-106)
[2023-09-19 11:37] LABS: Anion Gap 15.5; BUN Creatinine Ratio 12.4; Calcium 9.6 mg/dL (8.5-10.1); Carbon Dioxide 20.4 mmol/L (21.0-32.0); Chloride 94 mmol/L (98-107); Estimated GFR (African America >60 (>=60); Estimated GFR (Non-African Ame >60 (>=60); Glucose 169 mg/dL (74-106); Potassium 3.9 mmol/L (3.5-5.1); Sodium 126 mmol/L (136-145)
--- NOTE | 2023-09-19 15:47 | SWNOTE1 ---
LUPE spoke to pt's in room. She was tearful. Pt's voiced that he has seen so many doctors and she is just trying to do what is best for him and wants to make sure he is taking right meds. SW advised pt's that once pt leaves hospital that is why he does follow up with PCP so they can adjust meds if they want to at follow up. She does voice understanding. SW expressed to pt's that she has been caring for pt for several year at home and she may be experiencing some burn out. SW expressed to her that she is a wonderful lab assistant, but she does have to take time for herself. SW did ask about support and help. She stated that her son and son in law do help as needed and her friends as well. SW expressed that she should take an hour or so a few days of the week and ask someone to assist her or sit with pt while she runs to store or gardens. She does voice understanding. Pt then stated she can also put one of his friends on the phone and they talk for hours. LUPE spoke with her about finances. She just voiced she has a lot of bills, waiting on hospital to call her back about combining all her bills. She does go to a food pantry and has her mosque help as well. SW spoke with her about home health, she is open to this for her as long as insurance covers. SW let her know that SW will find company that is in network with insurance. At this time pt's voices no other needs. Pt is staying tonight. Pt's is aware. Referral sent to [address] Referral included face sheet, ED note, H&P, provider notes, case management report, and PT/OT notes.
--- NOTE | 2023-09-19 16:15 | SWNOTE1 ---
Important Message from Medicare reviewed and discussed with patient. Pt. verbalized understanding and signed the form. Original given to patient and copy placed in patient?s chart.
[2023-09-19 16:23] LABS: Glucometer 140 mg/dL (74-106)
[2023-09-19 16:48] LABS: Anion Gap 12.9; BUN Creatinine Ratio 12.2; Calcium 9.8 mg/dL (8.5-10.1); Chloride 98 mmol/L (98-107); Estimated GFR (African America >60 (>=60); Estimated GFR (Non-African Ame >60 (>=60); Glucose 148 mg/dL (74-106); Potassium 4.9 mmol/L (3.5-5.1); Sodium 126 mmol/L (136-145)
[2023-09-19 21:32] LABS: Glucometer 184 mg/dL (74-106)
[2023-09-20] VITALS (9 sets, daily range): BP systolic 129–145; BP diastolic 72–79; PULSE 61–85; TEMP 36.5–36.9; O2SAT 97–98; BMI 24.1
[2023-09-20 03:29] LABS: Basophils Absolute Auto 0.1 10^3/uL (0.0-0.1); Basophils Percent Auto 1.1 % (0.2-2.0); Eosinophils Absolute Auto 0.1 10^3/uL (0.0-0.7); Eosinophils Percent Auto 2.1 % (0.9-7.0); Hematocrit 39.9 % (42.0-54.0); Hemoglobin 14.3 g/dL (14.0-18.0); Immature Granulocytes Abs Auto 0.03 10^3/uL (0.00-0.03); Immature Granulocytes Pct Auto 0.5 % (0.0-0.5); Lymphocytes Percent Auto 29.8 % (20.5-60.0); Mean Corpuscular HGB Conc 35.8 g/dL (29.9-35.2); Mean Corpuscular Hemoglobin 33.1 pg (25.9-34.0); Mean Corpuscular Volume 92.4 fL (80.0-94.0); Mean Platelet Volume 10.7 fL (9.5-13.5); Monocytes Absolute Auto 0.5 10^3/uL (0.3-0.8); Monocytes Percent Auto 7.9 % (1.7-12.0); Neutrophils Absolute Auto 3.9 10^3/uL (1.4-6.5); Neutrophils Percent Auto 58.6 % (43.0-75.0); Platelet Count 144 10^3/uL (150-450); Red Blood Count 4.32 10^6/uL (4.70-6.10); Red Cell Distribution Width 12.5 % (11.0-15.0); White Blood Count 6.6 10^3/uL (4.0-11.0)
[2023-09-20 03:48] LABS: Alanine Aminotransferase 22 U/L (16-63); Alkaline Phosphatase 100 U/L (46-116); Anion Gap 12.7; Aspartate Amino Transferase 15 U/L (15-37); BUN Creatinine Ratio 10.8; Bilirubin Total 0.5 mg/dL (0.2-1.0); Calcium 10.2 mg/dL (8.5-10.1); Carbon Dioxide 22.5 mmol/L (21.0-32.0); Chloride 101 mmol/L (98-107); Estimated GFR (African America >60 (>=60); Estimated GFR (Non-African Ame >60 (>=60); Globulin 3.1 g/dL; Glucose 162 mg/dL (74-106); Potassium 4.2 mmol/L (3.5-5.1); Sodium 132 mmol/L (136-145); Total Protein 6.1 g/dL (6.4-8.2)
[2023-09-20 07:37] LABS: Glucometer 139 mg/dL (74-106)
[2023-09-20] MEDS: SODIUM CHLORIDE 1,000 MG TABLET 1000 MG PO (08:03)
[2023-09-20] MEDS: ASPIRIN 81 MG TABLET.DR PO (08:03)
--- NOTE | 2023-09-20 09:28 | SWNOTE1 ---
LUPE called [facility] and they will call SW back once the admissions referral person is in.
--- NOTE | 2023-09-20 09:49 | PM.DS1 ---
DS: Providers Provider Date of admission: 09/18/23 22:26 Primary care physician: Kenny Brown MD Admitting clinician: Shaikh Herebrt Attending physician on admission: Shaikh Herbert Consults: 09/18/23 Consult to Dietitian Routine Reason for consultation: unexplained weight loss, loss of appetite Has provider been notified: Yes 09/18/23 21:49 Consult to Commutator Assembler Routine Has provider been notified: No Reason for consult:: Home Health Occupational Therapy Eval and Treat Routine Reason for consultation: weakness Has provider been notified: No Physical Therapy Eval and Treat Routine Reason for consultation: weakness Has provider been notified: No Attending physician on discharge: Shaikh Herbert Discharging clinician: Shaikh Herbert Anticipated date of discharge: 09/20/23 DS: Diagnosis Discharge Diagnosis (1) Acute hyponatremia: Assessment and plan: Improved with fluid restriction/salt tablets. likely SAIDH. BMP in one week before appt with PCP. (2) Hypotension due to hypovolemia: Assessment and plan: Resolved with IV hydration (3) Type 2 diabetes mellitus: Assessment and plan: C/w metformin Qualifiers: Diabetes mellitus senior care insulin use: without petroleum terminal plant operator use Diabetes mellitus complication status: without complication Qualified Code(s): E11.9 - Type 2 diabetes mellitus without complications (4) Dementia: Assessment and plan: Will need outpatient follow up with Neurology. Qualifiers: Dementia type: Alzheimer's Alzheimer's disease onset: late onset Dementia severity: moderate Dementia behavioral or psychological symptom: with psychotic disturbance Qualified Code(s): G30.1 - Alzheimer's disease with late onset; F02.B2 - Dementia in other diseases classified elsewhere, moderate, with psychotic disturbance (5) HLD (hyperlipidemia): Assessment and plan: C/w crestor. Qualifiers: Hyperlipidemia type: unspecified Qualified Code(s): E78.5 - Hyperlipidemia, unspecified (6) HTN (hypertension): Assessment and plan: Hold all medications. Does not need them unless BP is elevated/or indicated otherwise. Qualifiers: Hypertension type: primary hypertension Qualified Code(s): I10 - Essential (primary) hypertension (7) Malnutrition: Assessment and plan: Recurrent hospital admissions, normal BMI, decreased PO intake, weight loss of 10 lbs in 3 months. Will benefit for steel erector evaluation as outpatient. Qualifiers: Malnutrition type: protein-calorie malnutrition Protein-calorie malnutrition severity: moderate Qualified Code(s): E44.0 - Moderate protein-calorie malnutrition DS: Summary Hospital Course Hospital Course: 73 y o male admitted for hyponatremia. Work up c/w SIADH, started on fluid restriction/salt tabs. Became hypotensive and required IVF bolus. BP remained stable afterwards. No obvious infectious etiology on work up Patient was instructed to stop his BP medications last hospital admission but kept using them. Given his age, probable dementia, I do not believe he needs to be on Antihypertensives as his BP then drops too low on them. He will need to f/u with PCP to ensure that's indeed the case. Patient stable for d/c on fluid restriction 1500ml, salt tab 1gm q12. Status at Discharge Overall status at discharge: patient is progressing back to baseline Time Spent with Patient Time attestation: Total time spent providing and/or coordinating discharge services: Time spent: greater than 30 minutes Exam Constitutional Vital Signs, click to edit/add: Last Vital Signs Temp 97.7 F 09/20/23 07:55 Pulse 61 09/20/23 07:55 Resp 18 09/20/23 04:46 BP 129/72 09/20/23 07:53 Pulse Ox 98 09/20/23 04:00 O2 Del Method Room Air 09/20/23 07:55 Documenting provider has reviewed patient's vital signs: yes Common normals: no apparent distress and oriented x3 General appearance: cooperative Respiratory Common normals: normal respiratory effort and clear to auscultation bilaterally Effort & inspection: able to speak in complete sentences Auscultation: clear to auscultation bilaterally Cardio Common normals: regular rate, S1 normal heart sound and S2 normal heart sound Rate: regular rate Heart sounds: S1 normal and S2 normal Neuro Common normals: moves all extremities and no focal motor deficits Sensorium/orientation: oriented to person and oriented to time Speech: speech normal Gait (neuro): unable to assess gait Other: AAOX 2 Psych Common normals: mental status grossly normal, denies hallucinations, denies homicidal ideation and denies suicidal ideation DS: Data Data Completed and Pending Labs on day of discharge: Labs from last 24 hours 09/20/23 09/20/23 09/20/23 07:36 03:23 03:04 WBC 6.6 RBC 4.32 L Hgb 14.3 Hct 39.9 L MCV 92.4 MCH 33.1 MCHC 35.8 H RDW 12.5 Plt Count 144 L MPV 10.7 Neut % (Auto) 58.6 Lymph % (Auto) 29.8 Harn[place] % (Auto) 7.9 Eos % (Auto) 2.1 Baso % (Auto) 1.1 Neut # (Auto) 3.9 Lymph # (Auto) 2.0 [place] # (Auto) 0.5 Eos # (Auto) 0.1 Baso # (Auto) 0.1 Abs Immat Gran (auto) 0.03 Imm/Tot Granulo (auto) 0.5 Sodium 132 L Potassium 4.2 Chloride 101 Carbon Dioxide 22.5 Anion Gap 12.7 BUN 10.0 Creatinine 0.93 Est GFR ( Amer) >60 Est GFR (Non-Af Amer) >60 BUN/Creatinine Ratio 10.8 Glucose 162 H Calcium 10.2 H Total Bilirubin 0.5 AST 15 ALT 22 Alkaline Phosphatase 100 Total Protein 6.1 L Albumin 3.0 L Globulin 3.1 Albumin/Globulin Ratio 1.0 POC Glucose 139 H 09/19/23 09/19/23 09/19/23 21:31 16:30 16:22 WBC RBC Hgb Hct MCV MCH MCHC RDW Plt Count MPV Neut % (Auto) Lymph % (Auto) [place] % (Auto) Eos % (Auto) Baso % (Auto) Neut # (Auto) Lymph # (Auto) [place] # (Auto) Eos # (Auto) Baso # (Auto) Abs Immat Gran (auto) Imm/Tot Granulo (auto) Sodium 126 L Potassium 4.9 Chloride 98 Carbon Dioxide 20.0 L Anion Gap 12.9 BUN 11.0 Creatinine 0.90 Est GFR ( Amer) >60 Est GFR (Non-Af Amer) >60 BUN/Creatinine Ratio 12.2 Glucose 148 H Calcium 9.8 Total Bilirubin AST ALT Alkaline Phosphatase Total Protein Albumin Globulin Albumin/Globulin Ratio POC Glucose 184 H 140 H 09/19/23 09/19/23 11:16 10:57 WBC RBC Hgb Hct MCV MCH MCHC RDW Plt Count MPV Neut % (Auto) Lymph % (Auto) [place] % (Auto) Eos % (Auto) Baso % (Auto) Neut # (Auto) Lymph # (Auto) [place] # (Auto) Eos # (Auto) Baso # (Auto) Abs Immat Gran (auto) Imm/Tot Granulo (auto) Sodium 126 L Potassium 3.9 Chloride 94 L Carbon Dioxide 20.4 L Anion Gap 15.5 BUN 12.0 Creatinine 0.97 Est GFR ( Amer) >60 Est GFR (Non-Af Amer) >60 BUN/Creatinine Ratio 12.4 Glucose 169 H Calcium 9.6 Total Bilirubin AST ALT Alkaline Phosphatase Total Protein Albumin Globulin Albumin/Globulin Ratio POC Glucose 166 H Discharge Plan Discharge Disposition: Home, Self-Care Condition: Fair Discharge Medications: New sodium chloride 1,000 mg tablet,soluble 1,000 mg PO BID Qty: 60 0RF Continued metformin 500 mg tablet 1,000 mg PO BIDWM rosuvastatin 20 mg tablet 20 mg PO DAILY Hold Instructions: Resume on 09/09/23. aspirin [Adult Aspirin Regimen] 81 mg tablet,delayed release (DR/EC) 81 mg PO DAILY Discontinued lisinopril-hydrochlorothiazide 10-12.5 mg tablet 1 tab PO DAILY Activity: increase activity as tolerated Diet: advance to your usual diet Diet Detail: Restrict Fluids to 1500 ml/day Print Language: Indonesian Patient Instructions: Hyponatremia (DC), Hyponatremia (GEN) Activity Restrictions/Additional Instructions: NO Blood Pressure Medications Forms: Portal Instructions Follow Up Appointments: Dr. Brown, October 02 @11:30
--- NOTE | 2023-09-20 09:54 | REH.PTDLY ---
Physical Therapy Daily Note PT Daily Note/Assess Start: 09/20/23 09:48 Freq: Status: Active Protocol: Document 09/20/23 09:48 ROSALINE (Rec: 09[facility]20/23 09:54 [id number] Physical Therapy Daily Note/Assessment Time In 09:28 Time Out 09:44 Subjective Pt sleeping upon arrival, has not been up yet today. Agreeable to therapy when woken. Therapeutic Exercise Minutes (minutes) 3 Therapeutic Exercise Units 0 Therapeutic Exercise Treatment Instructed in LAQ and marching 10x, pt eager to ambulate and goes to stand after the two exs. Therapeutic Activity Minutes (minutes) 12 Therapeutic Activity Units 1 Bed Mobility Ability Minimum Assist,1 Person Assist Chair Transfer Ability Standby Assistance Therapeutic Activity Comments Pt requires 1 EXECUTIVE CASINO HOST to transfer from supine to sit. Gait training with rollator CGA 125 feet with pt complaining of feet hurting from not having his shoes on. Returned to room and had pt sit in chair. Pt then reports needing to use restroom. Pt ambulates 10 feet to and from restroom with rollator. Stands for a total of 4 mins to urinate and wash hands. Pt back to chair with cues tor reach back for safety . Chair alarm on for safety, nurse in room as pt's breakfast arrived. Total Therapy Minutes 15 Total Physical Therapy Units 1 Daily Note Summary Progressed gait distance with pt being able to ambulate CGA- SBA and no LOB noted. Minimal assistance required for pt to sit up from bed. Possible DC today per nursing.
[2023-09-20 10:09] LABS: Osmolality, Urine 209 mOsmol/kg (.)
--- NOTE | 2023-09-20 10:11 | PC.NURSE ---
spoke with pts , asked if pts glasses were found. explained to , this nurse called security to check lost and found and to check ER yesterday. Pts now states today, pt is also missing his sunglasses. pts states they cost $300 . supervisor dry cleaning notified of situation. pts and this nurse looked in room and belongings for missing items.
--- NOTE | 2023-09-20 10:14 | CM.NOTE ---
Rounds made with Dr. Godinez. Plan for discharge home today. Follow up with PCP 1 week, BMP prior to office appointment.
--- NOTE | 2023-09-20 10:27 | PC.NURSE ---
assisted pt with getting dressed for discharge. both glasses and sunglasses found in pts tennis shoes. and fabric coating supervisor made aware.
--- NOTE | 2023-09-20 10:31 | SWNOTE1 ---
LUPE received a call from [facility] at [address] and they are able to accept. LUPE notified nursing and took back a home health paper with [facility] phone number for pt's . LUPE let nursing know that will contact within 48 hours of discharge. LUPE sent over CRF, dc med rec, and dc summary to [address]
--- NOTE | 2023-09-20 11:12 | PC.NURSE ---
discharge instructions explained to pt and , both verbalize understanding. taken to exit with belongings via wheelchair. discharged to private vehicle.
[2023-09-20 15:14] LABS: Cortisol - AM 5.2 ug/dL (6.2-19.4)
--- NOTE | 2023-09-21 12:19 | CM.DCFOLLOWU ---
Person spoke with: patient's How are you feeling? he is doing alright How is your pain? no pain Did you understand your discharge instructions? yes Do you have any questions about your discharge instructions? no Were you given any prescriptions at discharge? yes Were you able to get your prescriptions filled? yes Do you understand how to take your medications as ordered? yes Do you have any questions about your follow up appointment and do you plan to keep your follow up appointment? no questions, follow up scheduled and reviewed Is there anything else that you would like to discuss? no Questions/Comments/Concerns/Other: no
--- OUTSIDE RECORDS SUMMARY | 2023-11-08 15:56 | XMS_ITS | CCD ---
Author Organization [facility] Care Team Providers Care Court Manager Name Role Phone CAREY TREVIÑO Unavailable [...] OLIVERA Attending Unavailable ALGHOTHANI, KATHY Attending Unavailable ALGHOTHMARY, KATHY Attending Unavailable SHINE ELLISON Referring Unavailable CLIFFORD, TERRANCE Primary Care Unavailable NADEREAde, TERRANCE Primary Care Unavailable SHINE ELLISON Referring Unavailable NADCHRISTOPHER, TERRANCE Attending Unavailable RUSHERKARINA Attending Unavailable NADERER, TERRANCE Attending Unavailable RUSHERKARINA Attending Unavailable NADERER, TERRANCE Attending Unavailable NADERER, TERRANCE Attending Unavailable Allergies Allergy Classification Reported Allergen(s) Allergy Type Date of Onset Reaction(s) Facility (1 source) bee venom Drug allergy (disorder) [facility] Repository (1 source) Iodine (And Iodine Containting Drugs) Drug allergy (disorder) [facility] Repository Problems Active Problems Problem Classification Problem Date Documented Da te Episodic/Chronic Chronic obstructive pulmonary disease and bronchiectasis (2 sources) Chronic obstructive pulmonary disease, unspecified; 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: [Chronic obstructive pulmonary disease, unspecified] Onset: 01-23-2023 Chronic Coagulation and hemorrhagic disorders (1 source) Thrombocytopenia, unspecified; 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: [Thrombocytopenia, unspecified] Onset: 06-15-2017 Chronic Coronary atherosclerosis and other heart disease (3 sources) Atherosclerotic heart disease of [place] coronary artery without angina pectoris; 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: [Atherosclerotic heart disease of [place] coronary artery with unspecified angina pectoris] Onset: [...] Onset: 05-03-2022 Chronic Other aftercare (1 source) FDC (current) use of aspirin; 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: [CARE HOME CURRENT USE OF ASPIRIN] Onset: 05-03-2022 Episodic Other aftercare (1 source) Other emt intermediate (current) drug therapy; 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: [OTH FRIT BURNER CURRENT DRUG THERAPY] Onset: 05-03-2022 Episodic Other aftercare (1 source) 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; 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: [FRIT BURNER USE ORAL HYPOGLYCEMIC DX] Onset: 05-03-2022 Episodic [...] Range Facility Office Visiton 06-02-2023 Follow-up visit [id number] James Barros 1950 M Date Provider Department Center 06/02/2023 KATHY FELICIANO Family History Problem Relation Age of Onset Heart attack Maternal Grandfather Family Status - Relation Status Age at Maternal Grandfather Level of Service:17450 SC OFFICE/OUTPATIENT ESTABLISHED MOD MDM 30 MIN Normal [facility] Office Visiton 01-23-2023 Follow-up visit [id number] James Barros 1950 M Date Provider Department Center 01/23/2023 SARBJIT BARBOZA Family History Problem Relation Age of Onset Heart attack Maternal Grandfather Family Status - Relation Status Age at Maternal Grandfather Level of Service:47529 SC OFFICE/OUTPATIENT ESTABLISHED MOD MDM 30-39 MIN Normal [facility] Office Visiton 08-15-2022 Follow-up visit [id number] James Barros 1950 M Date Provider Department Center 08/15/2022 KATHY FELICIANO No family history on file Level of Service:01775 SC OFFICE/OUTPATIENT ESTABLISHED MOD MDM 30-39 MIN Reason for Visit and Comments: New Patient [632] Normal [facility] GLYCOHEMOGLOBIN A1Con 2022 ADA RECOMMENDATION SEE BELOW Normal [facility] Comment on above: Result Comment: ADA RECOMMENDED LIMIT 4.0 - 6.0 ADA THERAPEUTIC TARGET < 7.0 ACTION SUGGESTED > 7.0 Performed By: #### A 1C ####[facility] [address] [id number]. Vipul Jean Glucose [Mass/Vol] 197 mg/dL Normal [facility] Comment on above: Performed By: #### A 1C ####[facility] [address] [id number] Jean HbA1c (Bld) [Mass fraction] 8.5 % Critically high 4.5-6.2 [facility] Comment on above: Performed By: #### A 1C ####[facility] [address] [id number] Jean AMYLASEon 05-01-2022 Amylase [Catalytic activity/Vol] 33 U/L Normal 25-115 [facility] Comment on above: Performed By: #### A MY, HSTROPN, LIPA, CMP #### [facility] [address] [place] [address] Dr. Vipul Jean CBC AUTO DIFFon 05-01-2022 BASO # 0.1 103/ul Normal 0.0-0.1 [facility] Comment on above: Performed By: #### C BC #### [facility] [address] [place] [address] Dr. Vipul Jean Basophils/100 WBC (Bld) 0.6 % Normal 0.2-2.0 [facility] Comment on above: Performed By: #### C BC #### [facility] [address] [place] [address] Dr. Vipul Jean EO # 0.1 103/ul Normal 0.0-0.7 [facility] Comment on above: Performed By: #### C BC #### [facility] [address] [place] [address] Dr. Vipul Jean Eosinophils/100 WBC (Bld) 1.4 % Normal 0.9-7.0 [facility] Comment on above: Performed By: #### C BC #### [facility] [address] [place] [address] Dr. Vipul Jean Erythrocyte distribution width (RBC) [Ratio] 12.2 % Normal 11.0-15.0 [facility] Comment on above: Performed By: #### C BC #### [facility] [address] [place] [address] Dr. Vipul Jean Hematocrit (Bld) [Volume fraction] 46.0 % Normal 42.0-54.0 [facility] Comment on above: Performed By: #### C BC #### [facility] [address] [place] [address] Dr. Vipul Jean Hemoglobin (Bld) [Mass/Vol] 16.7 g/dL Normal 14.0-18.0 [facility] Comment on above: Performed By: #### C BC #### [facility] [address] [place] [address] Dr. Vipul Jean IG # 0.04 10e3/ul Critically high 0.00-0.03 [facility] Comment on above: Performed By: #### C BC #### [facility] [address] [place] [address] Dr. Vipul Jean IG % 0.4 % Normal 0.0-0.5 [facility] Comment on above: Performed By: #### C BC #### [facility] [address] [place] [address] Dr. Vipul Jean LYMPH # 1.7 103/ul Normal 1.2-3.8 [facility] Comment on above: Performed By: #### C BC #### [facility] [address] [place] [address] Dr. Vipul Jean Lymphocytes/100 WBC (Bld) 18.7 % Critically low 20.5-60.0 [facility] Comment on above: Performed By: #### C BC #### [facility] [address] [place] [address] Dr. Vipul Jean MANUAL DIFF REQ NO Normal [facility] Comment on above: Performed By: #### C BC #### [facility] [address] [place] [address] Dr. Vipul Jean MCH (RBC) [Entitic mass] 33.3 pg Normal 25.9-34.0 [facility] Comment on above: Performed By: #### C BC #### [facility] [address] [address] [address] Vipul Jean MCHC (RBC) [Mass/Vol] 36.3 g/dL Critically high 29.9-35.2 [facility] Comment on above: Performed By: #### C BC #### [facility] [address] [address] [address] Vipul Jean MCV (RBC) [Entitic vol] 91.6 fL Normal 80.0-94.0 [facility] Comment on above: Performed By: #### C BC #### [facility] [address] [address] [address] Vipul Jean MONO # 0.6 103/ul Normal 0.3-0.8 [facility] Comment on above: Performed By: #### C BC #### [facility] [address] [address] [address] Viupl Jean Monocytes/100 WBC (Bld) 6.9 % Normal 1.7-12.0 [facility] Comment on above: Performed By: #### C BC #### [facility] [address] [address] [address] Vipul Jean NEUT # 6.5 103/ul Normal 1.4-6.5 [facility] Comment on above: Performed By: #### C BC #### [facility] [address] [address] [address] Vipul Jean Neutrophils/100 WBC (Bld) 72.0 % Normal 43.0-75.0 [facility] Comment on above: Performed By: #### C BC #### [facility] [address] [address] [address] Vipul Jean Platelet mean volume (Bld) [Entitic vol] 10.5 fL Normal 9.5-13.5 [facility] Comment on above: Performed By: #### C BC #### [facility] [address] [address] [address] Vipul Jean PLT 125 103/ul Critically low 150-450 [facility] Comment on above: Performed By: #### C BC #### [facility] [address] [address] [address] Vipul Jean RBC 5.02 106/ul Normal 4.70-6.10 [facility] Comment on above: Performed By: #### C BC #### [facility] [address] [address] [address] Vipul Jean WBC 9.0 103/ul Normal 4.0-11.0 [facility] Comment on above: Performed By: #### C BC #### [facility] [address] ABD/PELVIS WO CONon [...] HOME MARX Date: 2022-05-01 15:31 Normal [facility] LIPASEon 05-01-2022 Lipase [Catalytic activity/Vol] 62.0 U/L Critically low 73.0-393.0 [facility] Comment on above: Performed By: #### A MY, HSTROPN, LIPA, CMP #### [facility] [address] [address] [address] Vipul Jean PROF 14(COMP METB)on 023 Albumin [Mass/Vol] 3.4 g/dL Normal 3.4-5.0 [facility] Comment on above: Performed By: #### A MY, HSTROPN, LIPA, CMP #### [facility] [address] [address] [address] Vipul Jean Albumin/Globulin [Mass ratio] 1.1 {ratio} Normal [facility] Comment on above: Performed By: #### A MY, HSTROPN, LIPA, CMP #### [facility] [address] [address] [address] Vipul Jean ALP [Catalytic activity/Vol] 93 U/L Normal 46-116 [facility] Comment on above: Performed By: #### A MY, HSTROPN, LIPA, CMP #### [facility] [address] [place] [address] Dr. Vipul Jean ALT [Catalytic activity/Vol] 38 U/L Normal 16-63 [facility] Comment on above: Performed By: #### A MY, HSTROPN, LIPA, CMP #### [facility] [address] [address] [address] Vipul Jean Anion gap [Moles/Vol] 10.6 mmol/L Normal [facility] Comment on above: Performed By: #### A MY, HSTROPN, LIPA, CMP #### [facility] [address] [address] [address] Vipul Jean AST [Catalytic activity/Vol] 29 U/L Normal 15-37 [facility] Comment on above: Performed By: #### A MY, HSTROPN, LIPA, CMP #### [facility] [address] [address] [address] Vipul Jean Bilirubin [Mass/Vol] 0.6 mg/dL Normal 0.2-1.0 [facility] Comment on above: Performed By: #### A MY, HSTROPN, LIPA, CMP #### [facility] [address] [address] [address] Vipul Jean Calcium [Mass/Vol] 10.0 mg/dL Normal 8.5-10.1 [facility] Comment on above: Performed By: #### A MY, HSTROPN, LIPA, CMP #### [facility] [address] [address] [address] Vipul Jean Chloride [Moles/Vol] 105 mmol/L Normal 98-107 [facility] Comment on above: Performed By: #### A MY, HSTROPN, LIPA, CMP #### [facility] [address] [address] [address] Vipul Jean CO2 [Moles/Vol] 24.6 mmol/L Normal 21.0-32.0 [facility] Comment on above: Performed By: #### A MY, HSTROPN, LIPA, CMP #### [facility] [address] [place] [address] Dr. Vipul Jean Creatinine [Mass/Vol] 1.08 mg/dL Normal 0.70-1.30 [facility] Comment on above: Performed By: #### A MY, HSTROPN, LIPA, CMP #### [facility] [address] [address] [address] Vipul Jean EGFR-AF CITIZEN [place] >60 Normal >=60 [facility] Comment on above: Performed By: #### A MY, HSTROPN, LIPA, CMP #### [facility] [address] [place] [address] Dr. Vipul Jean EGFR-NON AF CITIZEN [place] >60 Normal >=60 [facility] Comment on above: Performed By: #### A MY, HSTROPN, LIPA, CMP #### [facility] [address] [address] [address] Vipul Jean Globulin (S) [Mass/Vol] 3.2 g/dL Normal [facility] Comment on above: Performed By: #### A MY, HSTROPN, LIPA, CMP #### [facility] [address] [address] [address] Vipul Jean Glucose [Mass/Vol] 215 mg/dL Critically high 74-106 [facility] Comment on above: Performed By: #### A MY, HSTROPN, LIPA, CMP #### [facility] [address] [address] [address] Vipul Jean Potassium [Moles/Vol] 4.2 mmol/L Normal 3.5-5.1 [facility] Comment on above: Performed By: #### A MY, HSTROPN, LIPA, CMP #### [facility] [address] [place] [address] Dr. Vipul Jean Protein [Mass/Vol] 6.6 g/dL Normal 6.4-8.2 [facility] Comment on above: Performed By: #### A MY, HSTROPN, LIPA, CMP #### [facility] [address] [place] [address] Dr. Vipul Jean Sodium [Moles/Vol] 136 mmol/L Normal 136-145 [facility] Comment on above: Performed By: #### A MY, HSTROPN, LIPA, CMP #### [facility] [address] [place] [address] Dr. Vipul Jean Urea nitrogen [Mass/Vol] 16.0 mg/dL Normal 7.0-18.0 [facility] Comment on above: Performed By: #### A MY, HSTROPN, LIPA, CMP #### [facility] [address] [place] [address] Dr. Vipul Jean Urea nitrogen/Creatinine [Mass ratio] 14.8 mg/mg Normal [facility] Comment on above: Performed By: #### A MY, HSTROPN, LIPA, CMP #### [facility] [address] [place] [address] Dr. Vipul Jean TROPONIN, HIGH SENSITIVITYon 05-01-2022 HSTROP 21.4 pg/mL Normal 4.0-76.1 [facility] Comment on above: Result Comment: CUT- OFF POINTS HAVE BEEN ESTABLISHED BASED ON THE FOURTH UNIVERSAL DEFINITIONS OF MYOCARDIAL INFARCTION. THE UPPER REFERENCE LIMIT (URL) OF TROPONIN, DEFINED THE 99TH PERCENTILE OF cTnI DISTRIBUTION IN A REFERENCE POPULATION, HAS BEEN CONFIRMED THE DECISION THRESHOLD FOR [place] DIAGNOSIS. Performed By: #### A MY, HSTROPN, LIPA, CMP #### [facility] [address] [address] [address] Vipul Jean CBC AUTO DIFFon 02-14-2022 BASO # 0.1 103/ul Normal 0.0-0.1 [facility] Comment on above: Performed By: #### C BC #### [facility] [address] [address] [address] Vipul Jean Basophils/100 WBC (Bld) 0.6 % Normal 0.2-2.0 [facility] Comment on above: Performed By: #### C BC #### [facility] [address] [place] [address] Dr. Vipul Jean EO # 0.1 103/ul Normal 0.0-0.7 [facility] Comment on above: Performed By: #### C BC #### [facility] [address] [place] [address] Dr. Vipul Jean Eosinophils/100 WBC (Bld) 1.6 % Normal 0.9-7.0 [facility] Comment on above: Performed By: #### C BC #### [facility] [address] [place] [address] Dr. Vipul Jean Erythrocyte distribution width (RBC) [Ratio] 12.1 % Normal 11.0-15.0 [facility] Comment on above: Performed By: #### C BC #### [facility] [address] [place] [address] Dr. Vipul Jean Hematocrit (Bld) [Volume fraction] 47.9 % Normal 42.0-54.0 [facility] Comment on above: Performed By: #### C BC #### [facility] [address] [place] [address] Dr. Vipul Jean Hemoglobin (Bld) [Mass/Vol] 17.1 g/dL Normal 14.0-18.0 [facility] Comment on above: Performed By: #### C BC #### [facility] [address] [place] [address] Dr. Vipul Jean IG # 0.03 10e3/ul Normal 0.00-0.03 [facility] Comment on above: Performed By: #### C BC #### [facility] [address] [place] [address] Dr. Vipul Jean IG % 0.4 % Normal 0.0-0.5 [facility] Comment on above: Performed By: #### C BC #### [facility] [address] [place] [address] Dr. Vipul Jean LYMPH # 1.8 103/ul Normal 1.2-3.8 [facility] Comment on above: Performed By: #### C BC #### [facility] [address] [place] [address] Dr. Vipul Jean Lymphocytes/100 WBC (Bld) 22.4 % Normal 20.5-60.0 [facility] Comment on above: Performed By: #### C BC #### [facility] [address] [place] [address] Dr. Vipul Jean MANUAL DIFF REQ NO Normal [facility] Comment on above: Performed By: #### C BC #### [facility] [address] [place] [address] Dr. Vipul Jean MCH (RBC) [Entitic mass] 33.0 pg Normal 25.9-34.0 [facility] Comment on above: Performed By: #### C BC #### [facility] [address] [place] [address] Dr. Vipul Jean MCHC (RBC) [Mass/Vol] 35.7 g/dL Critically high 29.9-35.2 [facility] Comment on above: Performed By: #### C BC #### [facility] [address] [place] [address] Dr. Vipul Jean MCV (RBC) [Entitic vol] 92.5 fL Normal 80.0-94.0 [facility] Comment on above: Performed By: #### C BC #### [facility] [address] [place] [address] Dr. Vipul Jean MONO # 0.6 103/ul Normal 0.3-0.8 [facility] Comment on above: Performed By: #### C BC #### [facility] [address] [address] [address] Vipul Jean Monocytes/100 WBC (Bld) 7.0 % Normal 1.7-12.0 [facility] Comment on above: Performed By: #### C BC #### [facility] [address] [place] [address] Dr. Vipul Jean NEUT # 5.5 103/ul Normal 1.4-6.5 [facility] Comment on above: Performed By: #### C BC #### [facility] [address] [place] [address] Dr. Vipul Jean Neutrophils/100 WBC (Bld) 68.0 % Normal 43.0-75.0 [facility] Comment on above: Performed By: #### C BC #### [facility] [address] [place] [address] Dr. Vipul Jean Platelet mean volume (Bld) [Entitic vol] 11.0 fL Normal 9.5-13.5 [facility] Comment on above: Performed By: #### C BC #### [facility] [address] [place] [address] Dr. Vipul Jean PLT 101 103/ul Critically low 150-450 [facility] Comment on above: Performed By: #### C BC #### [facility] [address] [place] [address] Dr. Vipul Jean RBC 5.18 106/ul Normal 4.70-6.10 [facility] Comment on above: Performed By: #### C BC #### [facility] [address] [place] [address] Dr. Vipul Jean WBC 8.1 103/ul Normal 4.0-11.0 [facility] Comment on above: Performed By: #### C BC #### [facility] [address] [place] [address] Dr. Vipul Jean CRPon 02-14-2022 CRP [Mass/Vol] mg/L Normal <=1.0 [facility] Comment on above: Performed By: #### C RP, URIC #### [facility] [address] [place], [place] [address] Dr. Vipul Jean URIC ACID SERUMon 02-14-2022 Urate [Mass/Vol] 4.4 mg/dL Normal 3.5-7.2 [facility] Comment on above: Performed By: #### C RP, URIC #### [facility] [address] [place], [place] [address] Dr. Vipul Jean XR ANKLE LT MIN [...] by: NORY ALICIA Date: 2022-02-14 15:05 Normal [facility] CNOVSPon 06-15-2017 CNOVSP Visit (SP) Office (HEMAC[facility]) Ko BARROS ELISE Canas [facility][id number]) 1950 [facility]/15/17 3:45 PM CAREY TREVIÑO During your visit today, we recorded the following information about you: Temperature Pulse Respiration Blood pressure 97 degrees 53/minute 18/minute 149/69 Weight Height 92.8 kg 1.676 Baldemar Treviño MD 06/15/2017 3:50 PM SignedHPAlisanano Barros is a 67 year old male [...] kg (204 lb 9.6 oz) BMI 33.02 kg/x6Qgxblwk Appearance: alert and oriented, appearing in no [...] ABS GRAN CT + CBC (FOR [facility])2. S/P CABG x 5 - ICD9: V45.81, ICD10: Z95.1See above3. Undescended left testicle - ICD9: 752.51, ICD10: Q53.10See Cruz Treviño MDReferring Provider: AUDREY OSHEA [[id number]]Allergies As of Date: 06/15/2017(No Known Allergies)Date Reviewed: 06/15/2017Reviewed by: Liliane Molina - Fully AssessedReason for Visit: low platelets [Other] Cmt: new patient consultationPrimary Visit Diagnosis:Thrombocytopeni a (HCC) [D69.6] Other Visit Diagnoses: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 left testicle [Q53.10]Order(s):ABS GRAN CT + CBC (FOR [facility]) [SQRAGCBC] Order #: [id number] FUTUREFollow-up and Disposition History RecordedPrescriptions as of [...] >> July Molina 06/15/2017 3:27 PM >> JESSE JulyJun 15, 2017 3:27 PM Received from: External PharmacyProblem List As Of Date 06/15/2017 Noted Resolved Thrombocytopenia (HCC) [D69.6] INVALID FOR* S/P CABG x 5 [Z95.1] INVALID FOR* Undescended left testicle [Q53.10] INVALID FOR*Encounter Status:Closed by CAREY TREVIÑO MD on 06/15/17 Normal [facility] PROGRESSon 06-15-2017 PROGRESS HNO ID: [id number] thor: Carey TreviñoService: (none)Author Type: PhysicianType: Progress NotesFiled: 06/15/2017 3:50 [...] kg (204 lb 9.6 oz) BMI 33.02 kg/w6Rgvpzmh Appearance: alert and oriented, appearing in no [...] ABS GRAN CT + CBC (FOR [facility] USE)2. S/P CABG x 5 - ICD9: V45.81, ICD10: Z95.1See above3. Undescended left testicle - ICD9: 752.51, ICD10: Q53.10See Cruz Treviño MD Normal [facility] Remote Abs Gran + CBC (for [facility] use only)on 06-15-2017 Absol Gran Count 5.25 k/uL Normal 1.45-7.50 Fe [facility] Erythrocyte distribution width Auto Ratio (RBC) 12.4 % Normal 11.5-15.0 [facility] Erythrocytes (RBC) 4.87 10*6/uL Normal 4.20-6.00 [facility] Hematocrit (HCT) 45.5 % Normal 39.0-51.0 [facility] Hemoglobin mass conc (Bld) 15.7 g/dL Normal 13.0-17.0 [facility] MCH 32.2 pG Normal 26.0-34.0 [facility] MCHC mass conc (RBC) 34.5 g/dL Normal 30.5-36.0 [facility] MCV 93.4 fL Normal 80.0-100.0 [facility] Platelet mean volume (PMV) 10.8 fL Normal 9.0-12.7 [facility] Platelets 116 10*3/uL Low 150-400 [facility] WBC (Leukocytes) 7.93 10*3/uL Normal 3.70-11.00 [facility] Encounters Encounter Date Encounter Type Care Provider Facility Start: 10-03-2023 End: 10-03-2023 ambulatory TERRANCE HORTON Not Available Start: 09-06-2023 End: 09-06-2023 ambulatory TERRANEC HORTON Not Available Start: 08-21-2023 End: 08-21-2023 ambulatory KARINA PARKINSON Not Available Start: 06-28-2023 End: 06-28-2023 ambulatory TERRANCE HORTON Not Available Start: 06-16-2023 End: 07-17-2023 ambulatory SHINE Rodolfo ELLISON [facility] Start: 06-02-2023 End: 06-02-2023 ambulatory KATHY PAZ [facility] Start: 05-25-2023 End: 06-16-2023 ambulatory TERRANCE HORTON [facility] Start: 05-23-2023 End: 05-28-2023 Emergency department patient visit [facility] Start: 04-24-2023 End: 04-24-2023 ambulatory TERRANCE HORTON Not Available Start: 03-02-2023 End: 03-02-2023 ambulatory KARINA PARKINSON Not Available Start: 01-23-2023 End: 01-23-2023 ambulatory SARBJIT OLIVERA [facility] Start: 08-15-2022 End: 08-15-2022 ambulatory KATHY [facility] Start: 07-27-2022 End: 07-28-[address] TERRANCE HORTON Facility:[facility] Start: 05-01-2022 End: 05-01-[address] TERRANCE HORTON Facility:[facility] Start: 02-14-2022 End: 02-14-[address] TERRANCE HORTON Facility:[facility] Start: 06-15-2017 End: 06-16-2017 Ambulatory CAREY TREVIÑO [facility] Payers Date Payer Category Payer Medicare [id number] 1950 Unknown [id number] 2.16.84 0.1.178437.3.579.2.593 1950 Unknown [id number] 2.16.84 0.1.574268.3.579.2.593 1948 Unknown [id number] 2.16.84 0.1.391880.3.579.2.593 1948 Unknown [id number] 2.16.8 40.1.772985.3.579.2.1286 1948 Unknown [id number] 2.16.8 40.1.430371.3.579.2.1286 1948 Unknown [id number] 2.16.8 40.1.789110.3.579.2.1286 1948 Unknown [id number] 2.16.84 0.1.630813.3.579.2.1259 1948 Unknown [id number] 2.16.84 0.1.899414.3.579.2.1259 1948 Unknown [id number] 2.16.84 0.1.394580.3.579.2.1259 1948 Unknown [id number] 2.16.84 0.1.769671.3.579.2.1259 1948 Unknown [id number] 2.16.84 0.1.235717.3.579.2.1259 1948 Unknown [id number] 2.16.840 .1.890081.3.579.2.1259 Progress note 06-02-2023 Note Date & Type Note Facility 06-02-2023 Note error [facility] Progress note 06-02-2023 Note Date & Type Note Facility 06-02-2023 Note [facility]iology [facility] No te Chief Complaint: establish care HPI: James Barros is a 72 y.o. male with a past medical history including HTN, HLD, COPD, and CAD s/p CABG in 2010. 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 Patient presents today for [...] cessation. I emphasized (more content not included)... [facility] Progress note 01-23-2023 Note Date & Type Note Facility 01-23-2023 Note Cardiology Clinic No te Subjective James Barros is a 72 y.o. year old male patient with HTN, HLD, COPD, and CAD s/p CABG in 2010 seen in follow-up. 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 Update: 08/15/2022 Patient adamantly [...] for this visit: Coronary artery disease involving [place] coronary artery of [place] heart with angina pectoris ([facility]) Essential hypertension Mixed hyperlipidemia Hx of CABG Chronic obstructive pulmonary disease, unspecified COPD type ([facility]) Tobacco dependence Intermittent claudication ([facility]) Plan 1. Coronary artery disease -Multivessel [...] of twice daily. (more content not included)... [facility] Progress note 01-23-2023 Note Date [...] All other systems reviewed and are negative. [facility] Progress note 08-15-2022 Note Date & Type Note Facility 08-15-2022 Note Cardiology Clinic No te Chief Complaint: establish care HPI: James Barros is a 72 y.o. male with a past medical history including HTN, HLD, COPD, and CAD s/p CABG in 2010. 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 Patient adamantly denies any [...] concerns. Kathy Paz MD Interventional Cardiology [facility] Summary Purpose Family History No Family [...] content) DATE CREATED AUTHOR 10/06/2017 [facility] DATE CREATED AUTHOR AUTHOR'S ORGANIZ ATION 08/01/2022 [facility] DATE CREATED AUTHOR AUTHOR'S ORGANIZ ATION 05/29/2023 [facility] DATE CREATED AUTHOR AUTHOR'S ORGANIZ ATION 06/04/2023 [facility] DATE CREATED AUTHOR AUTHOR'S ORGANIZ ATION 07/17/2023 [facility] DATE CREATED AUTHOR AUTHOR'S ORGANIZ ATION 10/05/2023 [facility] EPIC FOR RECORDS PERTAINING TO PATIENTS [...] BE BASED ON THE PRIMARY CLINICAL RECORDS. [facility] [employer] [facility]. provides no warranty or guarantee of the accuracy or completeness of information in this document.
== END 2023-09-20 11:12 | disposition home health service (06) | DRG 644 ==
LOC: ER 21:34 → ICU 09-19 08:50
PROVIDERS: Nurse Practitioner Acute Care; Physician Assistant; Admitting Provider Internal Medicine; Emergency Provider Emergency Medicine Emergency Medical Services; PCP Family Medicine; Visit Provider Internal Medicine
DX: E22.2 Syndrome of inappropriate secretion of antidiuretic hormone (principal); E44.0 Moderate protein-calorie malnutrition; F02.B2 Dementia in other diseases classified elsewhere, moderate, with psychotic disturbance; I95.9 Hypotension, unspecified; E86.1 Hypovolemia; E11.9 Type 2 diabetes mellitus without complications; G30.1 Alzheimer's disease with late onset; E78.5 Hyperlipidemia, unspecified; I10 Essential (primary) hypertension; R62.7 Adult failure to thrive; I25.10 Atherosclerotic heart disease of native coronary artery without angina pectoris; H54.3 Unqualified visual loss, both eyes; Z68.24 Body mass index [BMI] 24.0-24.9, adult; Z95.1 Presence of aortocoronary bypass graft; F17.210 Nicotine dependence, cigarettes, uncomplicated; Z79.82 Long term (current) use of aspirin; Z79.84 Long term (current) use of oral hypoglycemic drugs; Z79.899 Other long term (current) drug therapy
CPT/HCPCS: 36415; 70450; 71045; 80048; 80053; 81001; 82533; 82550; 82570; 82948; 83605; 83874; 83935; 84300; 84443; 84484; 85025; 93005; 96360; 96361; 97161; 97165; 97530; 99285; G0378

== ENCOUNTER 2023-10-02 16:20 | Outpatient (OUT) | payer MEDICARE, SELFPAY ==
--- OUTSIDE RECORDS SUMMARY | 2023-10-02 16:35 | XMS_ITS | CCD ---
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; 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: [FCI CURRENT USE OF ASPIRIN] Onset: 05-03-2022 Episodic Other aftercare (1 source) Other snf (current) drug therapy; 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: [OTH PUPPY WALKER CURRENT DRUG THERAPY] Onset: 05-03-2022 Episodic Other aftercare (1 source) vermin exterminator (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) use of oral hypoglycemic drugs; 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: [PUPPY WALKER USE ORAL HYPOGLYCEMIC DX] Onset: 05-03-2022 Episodic [...] Range Facility Office Visiton 06-02-2023 Follow-up visit [id number] James Barros 1950 M Date Provider Department Center 06/02/2023 KATHY FELICIANO Family History Problem Relation Age of Onset Heart attack Maternal Grandfather Family Status - Relation Status Age at Maternal Grandfather Level of Service:98303 GA OFFICE/OUTPATIENT ESTABLISHED MOD MDM 30 MIN Normal [facility] Office Visiton 01-23-2023 Follow-up visit [id number] James Barros 1950 M Date Provider Department Center 01/23/2023 SARBJIT BARBOZA Family History Problem Relation Age of Onset Heart attack Maternal Grandfather Family Status - Relation Status Age at Maternal Grandfather Level of Service:09859 GA OFFICE/OUTPATIENT ESTABLISHED MOD MDM 30-39 MIN Normal [facility] Office Visiton 08-15-2022 Follow-up visit [id number] James Barros Floresita 1950 M Date Provider Department Center 08/15/2022 KATHY FELICIANO No family history on file Level of Service:97489 GA OFFICE/OUTPATIENT ESTABLISHED MOD MDM 30-39 MIN Reason for Visit and Comments: New Patient [632] Normal [facility] GLYCOHEMOGLOBIN A1Con 2022 ADA RECOMMENDATION SEE BELOW Normal [facility] Comment on above: Result Comment: ADA RECOMMENDED LIMIT 4.0 - 6.0 ADA THERAPEUTIC TARGET < 7.0 ACTION SUGGESTED > 7.0 Performed By: #### A 1C ####[facility] [id number] [place], [place] [address]AeDr. Vipul Jean Glucose [Mass/Vol] 197 mg/dL Normal [facility] Comment on above: Performed By: #### A 1C ####[facility] [id number] [place], [place] [address]WzNoelle Jean HbA1c (Bld) [Mass fraction] 8.5 % Critically high 4.5-6.2 [facility] Comment on above: Performed By: #### A 1C ####[facility] [id number] [place] [id number]. Vipul Jean AMYLASEon 05-01-2022 Amylase [Catalytic activity/Vol] 33 U/L Normal 25-115 [facility] Comment on above: Performed By: #### A MY, HSTROPN, LIPA, CMP #### [facility] [address] [place] [address] Dr. Vipul Jean CBC AUTO DIFFon 05-01-2022 BASO # 0.1 103/ul Normal 0.0-0.1 [facility] Comment on above: Performed By: #### C BC #### [facility] [address] [place] [address] Dr. Vipul Jean Basophils/100 WBC (Bld) 0.6 % Normal 0.2-2.0 [facility] Comment on above: Performed By: #### C BC #### [facility] [address] [place] [address] Dr. Vipul Jean EO # 0.1 103/ul Normal 0.0-0.7 [facility] Comment on above: Performed By: #### C BC #### [facility] [address] [place] [address] Dr. Vipul Jean Eosinophils/100 WBC (Bld) 1.4 % Normal 0.9-7.0 [facility] Comment on above: Performed By: #### C BC #### [facility] [address] [place] [address] Dr. Vipul Jean Erythrocyte distribution width (RBC) [Ratio] 12.2 % Normal 11.0-15.0 [facility] Comment on above: Performed By: #### C BC #### [facility] [address] [place] [address] Dr. Vipul Jean Hematocrit (Bld) [Volume fraction] 46.0 % Normal 42.0-54.0 [facility] Comment on above: Performed By: #### C BC #### [facility] [address] [place] [address] Dr. Vipul Jean Hemoglobin (Bld) [Mass/Vol] 16.7 g/dL Normal 14.0-18.0 [facility] Comment on above: Performed By: #### C BC #### [facility] [address] [place] [address] Dr. Vipul Jean IG # 0.04 10e3/ul Critically high 0.00-0.03 [facility] Comment on above: Performed By: #### C BC #### [facility] [address] [place] [address] Dr. Vipul Jean IG % 0.4 % Normal 0.0-0.5 [facility] Comment on above: Performed By: #### C BC #### [facility] [address] [place] [address] Dr. Vipul Jean LYMPH # 1.7 103/ul Normal 1.2-3.8 [facility] Comment on above: Performed By: #### C BC #### [facility] [address] [place] [address] Dr. Vipul Jean Lymphocytes/100 WBC (Bld) 18.7 % Critically low 20.5-60.0 [facility] Comment on above: Performed By: #### C BC #### [facility] [address] [place] [address] Dr. Vipul Jean MANUAL DIFF REQ NO Normal [facility] Comment on above: Performed By: #### C BC #### [facility] [address] [place] [address] Dr. Vipul Jean MCH (RBC) [Entitic mass] 33.3 pg Normal 25.9-34.0 [facility] Comment on above: Performed By: #### C BC #### [facility] [address] [address] [address] Vipul Jean MCHC (RBC) [Mass/Vol] 36.3 g/dL Critically high 29.9-35.2 [facility] Comment on above: Performed By: #### C BC #### [facility] [address] [address] [address] Vipul Jean MCV (RBC) [Entitic vol] 91.6 fL Normal 80.0-94.0 [facility] Comment on above: Performed By: #### C BC #### [facility] [address] [place] [address] [address] Vipul Jean MONO # 0.6 103/ul Normal 0.3-0.8 [facility] Comment on above: Performed By: #### C BC #### [facility] [address] [place] [address] Dr. Vipul Jean Monocytes/100 WBC (Bld) 6.9 % Normal 1.7-12.0 [facility] Comment on above: Performed By: #### C BC #### [facility] [address] [place] [address] [address] Vipul Jean NEUT # 6.5 103/ul Normal 1.4-6.5 [facility] Comment on above: Performed By: #### C BC #### [facility] [address] [place] [address] Dr. Vipul Jean Neutrophils/100 WBC (Bld) 72.0 % Normal 43.0-75.0 [facility] Comment on above: Performed By: #### C BC #### [facility] [address] [address] [address] Vipul Jean Platelet mean volume (Bld) [Entitic vol] 10.5 fL Normal 9.5-13.5 [facility] Comment on above: Performed By: #### C BC #### [facility] [address] [address] [address] Vipul Jean PLT 125 103/ul Critically low 150-450 [facility] Comment on above: Performed By: #### C BC #### [facility] [address] [place] [address] [address] Vipul Jean RBC 5.02 106/ul Normal 4.70-6.10 [facility] Comment on above: Performed By: #### C BC #### [facility] [address] [address] [address] Vipul Jean WBC 9.0 103/ul Normal 4.0-11.0 [facility] Comment on above: Performed By: #### C BC #### [facility] [id number] Vipul Jean [address] ABD/PELVIS WO CONon [...] HOME MARX Date: 2022-05-01 15:31 Normal [facility] LIPASEon 05-01-2022 Lipase [Catalytic activity/Vol] 62.0 U/L Critically low 73.0-393.0 [facility] Comment on above: Performed By: #### A MY, HSTROPN, LIPA, CMP #### [facility] [address] [address] [address] Vipul Jean PROF 14(COMP METB)on 01-15-2 023 Albumin [Mass/Vol] 3.4 g/dL Normal 3.4-5.0 [facility] Comment on above: Performed By: #### A MY, HSTROPN, LIPA, CMP #### [facility] [address] [place] [address] Dr. Vipul Jean Albumin/Globulin [Mass ratio] 1.1 {ratio} Normal [facility] Comment on above: Performed By: #### A MY, HSTROPN, LIPA, CMP #### [facility] [address] [place] [address] Dr. Vipul Jean ALP [Catalytic activity/Vol] 93 U/L Normal 46-116 [facility] Comment on above: Performed By: #### A MY, HSTROPN, LIPA, CMP #### [facility] [address] [place] [address] Dr. Vipul Jean ALT [Catalytic activity/Vol] 38 U/L Normal 16-63 [facility] Comment on above: Performed By: #### A MY, HSTROPN, LIPA, CMP #### [facility] [address] [place] [address] Dr. Vipul Jean Anion gap [Moles/Vol] 10.6 mmol/L Normal [facility] Comment on above: Performed By: #### A MY, HSTROPN, LIPA, CMP #### [facility] [address] [place] [address] Dr. Vipul Jean AST [Catalytic activity/Vol] 29 U/L Normal 15-37 [facility] Comment on above: Performed By: #### A MY, HSTROPN, LIPA, CMP #### [facility] [address] [address] [address] Vipul Jean Bilirubin [Mass/Vol] 0.6 mg/dL Normal 0.2-1.0 [facility] Comment on above: Performed By: #### A MY, HSTROPN, LIPA, CMP #### [facility] [address] [place] [address] Dr. Vipul Jean Calcium [Mass/Vol] 10.0 mg/dL Normal 8.5-10.1 [facility] Comment on above: Performed By: #### A NICHOL HSTROPTomas LIPA, CMP #### [facility] [address] [address] [address] Vipul Jean Chloride [Moles/Vol] 105 mmol/L Normal 98-107 [facility] Comment on above: Performed By: #### A NICHOL HSTROPN, LIPA, CMP #### [facility] [address] [address] [address] Vipul Jean CO2 [Moles/Vol] 24.6 mmol/L Normal 21.0-32.0 [facility] Comment on above: Performed By: #### A NICHOL HSTROPN, LIPA, CMP #### [facility] [address] [place] [address] Dr. Vipul Jean Creatinine [Mass/Vol] 1.08 mg/dL Normal 0.70-1.30 [facility] Comment on above: Performed By: #### A NICHOL, HSTROPN, LIPA, CMP #### [facility] [address] [place] [address] Dr. Vipul Jean EGFR-AF SOUTH KOREAN >60 Normal >=60 [facility] Comment on above: Performed By: #### A NICHOL HSTROPN, LIPA, CMP #### [facility] [address] [place] [address] Dr. Vipul Jean EGFR-NON AF [place]OREAN >60 Normal >=60 [facility] Comment on above: Performed By: #### A NICHOL, HSTROPN, LIPA, CMP #### [facility] [address] [place] [address] Dr. Vipul Jean Globulin (S) [Mass/Vol] 3.2 g/dL Normal [facility] Comment on above: Performed By: #### A NICHOL, HSTROPN, LIPA, CMP #### [facility] [address] [address] [address] Vipul Jean Glucose [Mass/Vol] 215 mg/dL Critically high 74-106 [facility] Comment on above: Performed By: #### A MY, HSTROPN, LIPA, CMP #### [facility] [address] [address] [address] Vipul Jean Potassium [Moles/Vol] 4.2 mmol/L Normal 3.5-5.1 [facility] Comment on above: Performed By: #### A MY, HSTROPN, LIPA, CMP #### [facility] [address] [address] [address] Vipul Jean Protein [Mass/Vol] 6.6 g/dL Normal 6.4-8.2 [facility] Comment on above: Performed By: #### A MY, HSTROPN, LIPA, CMP #### [facility] [address] [place] [address] Dr. Vipul Jean Sodium [Moles/Vol] 136 mmol/L Normal 136-145 [facility] Comment on above: Performed By: #### A MY, HSTROPN, LIPA, CMP #### [facility] [address] [place] [address] Dr. Vipul Jean Urea nitrogen [Mass/Vol] 16.0 mg/dL Normal 7.0-18.0 [facility] Comment on above: Performed By: #### A MY, HSTROPN, LIPA, CMP #### [facility] [address] [place] [address] Dr. Vipul Jean Urea nitrogen/Creatinine [Mass ratio] 14.8 mg/mg Normal [facility] Comment on above: Performed By: #### A MY, HSTROPN, LIPA, CMP #### [facility] [address] [place] [address] Dr. Vipul Jean TROPONIN, HIGH SENSITIVITYon 05-01-2022 HSTROP 21.4 pg/mL Normal 4.0-76.1 [facility] Comment on above: Result Comment: CUT- OFF POINTS HAVE BEEN ESTABLISHED BASED ON THE FOURTH UNIVERSAL DEFINITIONS OF MYOCARDIAL INFARCTION. THE UPPER REFERENCE LIMIT (URL) OF TROPONIN, DEFINED THE 99TH PERCENTILE OF cTnI DISTRIBUTION IN A REFERENCE POPULATION, HAS BEEN CONFIRMED THE DECISION THRESHOLD FOR IA DIAGNOSIS. Performed By: #### A MY, HSTROPN, LIPA, CMP #### [facility] [address] [address] [address] Vipul Jean CBC AUTO DIFFon 02-14-2022 BASO # 0.1 103/ul Normal 0.0-0.1 [facility] Comment on above: Performed By: #### C BC #### [facility] [address] [address] [address] Vipul Jean Basophils/100 WBC (Bld) 0.6 % Normal 0.2-2.0 [facility] Comment on above: Performed By: #### C BC #### [facility] [address] [address] [address] Vipul Jean EO # 0.1 103/ul Normal 0.0-0.7 [facility] Comment on above: Performed By: #### C BC #### [facility] [address] [address] [address] Vipul Jean Eosinophils/100 WBC (Bld) 1.6 % Normal 0.9-7.0 [facility] Comment on above: Performed By: #### C BC #### [facility] [address] [place] [address] Dr. Vipul Jean Erythrocyte distribution width (RBC) [Ratio] 12.1 % Normal 11.0-15.0 [facility] Comment on above: Performed By: #### C BC #### [facility] [address] [place] [address] Dr. Vipul Jean Hematocrit (Bld) [Volume fraction] 47.9 % Normal 42.0-54.0 [facility] Comment on above: Performed By: #### C BC #### [facility] [address] [address] [address] Vipul Jean Hemoglobin (Bld) [Mass/Vol] 17.1 g/dL Normal 14.0-18.0 [facility] Comment on above: Performed By: #### C BC #### [facility] [address] [address] [address] Vipul Jean IG # 0.03 10e3/ul Normal 0.00-0.03 [facility] Comment on above: Performed By: #### C BC #### [facility] [address] [place] [address] Dr. Vipul Jean IG % 0.4 % Normal 0.0-0.5 [facility] Comment on above: Performed By: #### C BC #### [facility] [address] [place] [address] Dr. Vipul Jean LYMPH # 1.8 103/ul Normal 1.2-3.8 [facility] Comment on above: Performed By: #### C BC #### [facility] [address] [place] [address] Dr. Vipul Jean Lymphocytes/100 WBC (Bld) 22.4 % Normal 20.5-60.0 [facility] Comment on above: Performed By: #### C BC #### [facility] [address] [place] [address] Dr. Vipul Jean MANUAL DIFF REQ NO Normal [facility] Comment on above: Performed By: #### C BC #### [facility] [address] [place] [address] Dr. Vipul Jean MCH (RBC) [Entitic mass] 33.0 pg Normal 25.9-34.0 [facility] Comment on above: Performed By: #### C BC #### [facility] [address] [place] [address] Dr. Vipul Jean MCHC (RBC) [Mass/Vol] 35.7 g/dL Critically high 29.9-35.2 [facility] Comment on above: Performed By: #### C BC #### [facility] [address] [place] [address] Dr. Vipul Jean MCV (RBC) [Entitic vol] 92.5 fL Normal 80.0-94.0 [facility] Comment on above: Performed By: #### C BC #### [facility] [address] [place] [address] Dr. Vipul Jean MONO # 0.6 103/ul Normal 0.3-0.8 [facility] Comment on above: Performed By: #### C BC #### [facility] [address] [place] [address] Dr. Vipul Jean Monocytes/100 WBC (Bld) 7.0 % Normal 1.7-12.0 [facility] Comment on above: Performed By: #### C BC #### [facility] [address] [place] [address] Dr. Vipul Jean NEUT # 5.5 103/ul Normal 1.4-6.5 [facility] Comment on above: Performed By: #### C BC #### [facility] [address] [address] [address] Vipul Jean Neutrophils/100 WBC (Bld) 68.0 % Normal 43.0-75.0 [facility] Comment on above: Performed By: #### C BC #### [facility] [address] [place] [address] Dr. Vipul Jean Platelet mean volume (Bld) [Entitic vol] 11.0 fL Normal 9.5-13.5 [facility] Comment on above: Performed By: #### C BC #### [facility] [address] [place] [address] Dr. Vipul Jean PLT 101 103/ul Critically low 150-450 [facility] Comment on above: Performed By: #### C BC #### [facility] [address] [place] [address] Dr. Vipul Jean RBC 5.18 106/ul Normal 4.70-6.10 [facility] Comment on above: Performed By: #### C BC #### [facility] [address] [place] [address] Dr. Vipul Jean WBC 8.1 103/ul Normal 4.0-11.0 [facility] Comment on above: Performed By: #### C BC #### [facility] [address] [place] [address] Dr. Vipul Jean CRPon 02-14-2022 CRP [Mass/Vol] mg/L Normal <=1.0 [facility] Comment on above: Performed By: #### C RP, URIC #### [facility] [address] [place], [place] [address] Dr. Vipul Jean URIC ACID SERUMon 02-14-2022 Urate [Mass/Vol] 4.4 mg/dL Normal 3.5-7.2 [facility] Comment on above: Performed By: #### C RP, URIC #### [facility] [address] [place], [place] [address] Dr. Vipul Jean XR ANKLE LT MIN [...] by: NORY ALICIA Date: 2022-02-14 15:05 Normal [facility] CNOVSPon 06-15-2017 CNOVSP Visit (SP) Office (HE[facility]) Ko BARROS ELISE Canas ([id number]) 1950 MDate Time Provider Department06/15/17 3:45 PM [...] kg (204 lb 9.6 oz) BMI 33.02 kg/y2Umfobcd Appearance: alert and oriented, appearing in no [...] GRAN CT + CBC (FOR REMOTE [facility] USE)2. S/P CABG x 5 - ICD9: V45.81, ICD10: Z95.1See above3. Undescended left testicle - ICD9: 752.51, ICD10: Q53.10See Cruz Treviño [facility]eferring Provider: AUDREY OSHEA [[id number]]Allergies As of Date: 06/15/2017(No Known Allergies)Date Reviewed: 06/15/2017Reviewed by: Liliane Molina - Fully AssessedReason for Visit: low platelets [Other] Cmt: new patient consultationPrimary Visit Diagnosis:Thrombocytopeni a (HCC) [D69.6] Other Visit Diagnoses: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 left testicle [Q53.10]Order(s):ABS GRAN CT + CBC (FOR REMOTE [facility] USE) [SQRAGCBC] Order #: [id number] FUTUREFollow-up and Disposition History RecordedPrescriptions as of [...] by CAREY TREVIÑO MD on 06/15/17 Normal [facility] PROGRESSon 06-15-2017 PROGRESS HNO ID: [id number] thor: [place]: (none)Author Type: PhysicianType: Progress [...] kg (204 lb 9.6 oz) BMI 33.02 kg/k3Iazftpq Appearance: alert and oriented, appearing in no [...] GRAN CT + CBC (FOR REMOTE [facility] USE)2. S/P CABG x 5 - ICD9: V45.81, ICD10: Z95.1See above3. Undescended left testicle - ICD9: 752.51, ICD10: Q53.10See Cruz Treviño MD Normal [facility] Remote Abs Gran + CBC (for [facility] use only)on 06-15-2017 Absol Gran Count 5.25 k/uL Normal 1.45-7.50 Fe [facility] Erythrocyte distribution width Auto Ratio (RBC) 12.4 % Normal 11.5-15.0 [facility] Erythrocytes (RBC) 4.87 10*6/uL Normal 4.20-6.00 [facility] Hematocrit (HCT) 45.5 % Normal 39.0-51.0 [facility] Hemoglobin mass conc (Bld) 15.7 g/dL Normal 13.0-17.0 [facility] MCH 32.2 pG Normal 26.0-34.0 [facility] MCHC mass conc (RBC) 34.5 g/dL Normal 30.5-36.0 [facility] MCV 93.4 fL Normal 80.0-100.0 [facility] Platelet mean volume (PMV) 10.8 fL Normal 9.0-12.7 [facility] Platelets 116 10*3/uL Low 150-400 [facility] WBC (Leukocytes) 7.93 10*3/uL Normal 3.70-11.00 [facility] Encounters Encounter Date Encounter Type Care Provider Facility Start: 09-06-2023 End: 09-06-2023 ambulatory TERRANCE HORTON Not Available Start: 08-21-2023 End: 08-21-2023 ambulatory KARINA PARKINSON Not Available Start: 06-28-2023 End: 06-28-2023 ambulatory TERRANCE HORTON Not Available Start: 06-16-2023 End: 07-17-2023 ambulatory [facility] Start: 06-02-2023 End: 06-02-2023 ambulatory [facility] Start: 05-25-2023 End: 06-16-2023 ambulatory [facility] Start: 05-23-2023 End: 05-28-2023 Emergency department patient visit [facility] Start: 04-24-2023 End: 04-24-2023 ambulatory TERRANCE HORTON Not Available Start: 03-02-2023 End: 03-02-2023 ambulatory KARINA PARKINSON Not Available Start: 01-23-2023 End: 01-23-2023 [facility] Start: 08-15-2022 End: 08-15-2022 ambulatory [facility] Start: 07-27-2022 End: 07-28-[address] TERRANCE HORTON Facility:[facility] Start: 05-01-2022 End: 05-01-[address] TERRANCE HORTON Facility:[facility] Start: 02-14-2022 End: 02-14-[address] TERRANCE HORTON Facility:[facility] Start: 06-15-2017 End: 06-16-2017 Ambulatory CAREY Brad MICAHNORBERTO [facility] Payers Date Payer Category Payer Medicare [id number] 1950 Unknown [id number] 2.16.84 [id number] 1950 Unknown [id number] 2.16.84 [id number] 1950 Unknown [id number] 2.16.84 [id number] 1950 Unknown [id number] 2.16.8 [id number] 1950 Unknown [id number] 2.16.8 [id number] 1950 Unknown [id number] 2.16.8 [id number] 1950 Unknown [id number] 2.16.84 [id number] 1950 Unknown [id number] 2.16.84 [id number] 1950 Unknown [id number] 2.16.84 [id number] 1950 Unknown [id number] 2.16.84 [id number] 1950 Unknown [id number] 2.16.840 [id number] Progress note 06-02-2023 Note Date & Type Note Facility 06-02-2023 Note error [facility] Progress note 06-02-2023 Note Date & Type Note Facility 06-02-2023 Note [facility]iology [facility] No te Chief Complaint: establish care HPI: James Barros is a 72 y.o. male with a past medical history including HTN, HLD, COPD, and CAD s/p CABG in 2010. He was referred to Cardiology clinic to establish care because his previous insurance counsel (Dr. 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 Patient presents today for [...] cessation. I emphasized (more content not included)... [facility] Progress note 01-23-2023 Note Date & Type Note Facility 01-23-2023 Note Cardiology Clinic No te Subjective James Barros is a 72 y.o. year old male patient with HTN, HLD, COPD, and CAD s/p CABG in 2010 seen in follow-up. Patient Active Problem List Diagnosis S/P CABG x 5 Thrombocytopenia ([facility]) Type 2 diabetes mellitus without complication, without long-term current use of insulin ([facility]) Undescended left testicle Family History Problem [...] clinic to establish care because his previous insurance counsel (Dr. 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) Essential hypertension Mixed hyperlipidemia Hx of CABG Chronic obstructive pulmonary disease, unspecified COPD type ([facility]) Tobacco dependence Intermittent claudication ([facility]) Plan 1. Coronary artery disease -Multivessel [...] of twice daily. (more content not included)... [facility] Progress note 01-23-2023 Note Date [...] All other systems reviewed and are negative. [facility] Progress note 08-15-2022 Note Date & Type Note Facility 08-15-2022 Note Cardiology Clinic No te Chief Complaint: establish care HPI: James Barros is a 72 y.o. male with a past medical history including HTN, HLD, COPD, and CAD s/p CABG in 2010. He is referred to Cardiology clinic to establish care because his previous insurance counsel (Dr. 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 Patient adamantly denies any [...] or concerns. Kathy Paz MD Interventional Cardiology [facility] Summary Purpose Family History No Family [...] section and content) DATE CREATED AUTHOR 10/06/2017 [facility] DATE CREATED AUTHOR AUTHOR'S ORGANIZ ATION 08/01/2022 [facility] DATE CREATED AUTHOR AUTHOR'S ORGANIZ ATION 05/29/2023 [facility] DATE CREATED AUTHOR AUTHOR'S ORGANIZ ATION 06/04/2023 [facility] DATE CREATED AUTHOR AUTHOR'S ORGANIZ ATION 07/17/[address] [facility] DATE CREATED AUTHOR AUTHOR'S ORGANIZ ATION 09/08/2023 [facility] EPIC FOR RECORDS PERTAINING [...] BE BASED ON THE PRIMARY CLINICAL RECORDS. [employer] provides no warranty or guarantee of the accuracy or completeness of information in this document.
[2023-10-02 16:48] LABS: Anion Gap 10.6; BUN Creatinine Ratio 14.9; Calcium 10.2 mg/dL (8.5-10.1); Carbon Dioxide 23.4 mmol/L (21.0-32.0); Chloride 107 mmol/L (98-107); Estimated GFR (African America >60 (>=60); Estimated GFR (Non-African Ame >60 (>=60); Glucose 199 mg/dL (74-106); Sodium 137 mmol/L (136-145)
== END 2023-10-02 16:21 | disposition home or self-care (01) ==
LOC: LAB 16:20
PROVIDERS: PCP Family Medicine; Visit Provider Internal Medicine
DX: E87.1 Hypo-osmolality and hyponatremia (principal)
CPT/HCPCS: 36415; 80048

== ENCOUNTER 2023-11-03 15:00 | Outpatient (OUT) | payer MEDICARE, SELFPAY ==
--- NOTE | 2023-11-03 15:11 | CT_ITS ---
[address] [address] Patient Name: JAMES POPE MRN: [id number] date: 1950 Sex: M Assigned Patient Location: LAB Current Patient Location: Accession/Order Number: [id number] Exam Date: 11/03/2023 15:43 Report Date: 11/06/2023 13:06 At the request of: MED VELASQUEZ Procedure: CT angio chest EXAMINATION: CT angio chest HISTORY: Aortic Aneurysm Of Unspecified Site I71.9 COMPARISON: No relevant comparison available. TECHNIQUE: Multi-planar CT images were created with IV contrast. Axial, Coronal, and Sagittal images. Dose reduction techniques were achieved by using automated exposure control and/or adjustment of mA and/or kV according to patient size and/or use of iterative reconstruction technique. FINDINGS: LUNGS: Scattered subcentimeter solid noncalcified pulmonary nodules the largest in the right lower lobe measures 6.7 mm axial image #68 PLEURA: No mass, effusion, or pneumothorax. VASCULATURE: Suboptimal opacification of the central pulmonary arterial tree with no definite filling defect to suggest a pulmonary embolus ISABEL: No mass or adenopathy. MEDIASTINUM: No mass or adenopathy. CARDIAC: No enlargement or pericardial effusion. Coronary arteries: Heavy coronary atherosclerosis AORTA: Prominent ascending thoracic aorta measuring 3.9 cm in diameter. Moderate calcific atherosclerosis CHEST WALL: No mass or axillary adenopathy. BONES: No bone lesion or fracture. Exaggerated thoracic kyphosis. Moderate to severe degenerative spondylosis LIMITED ABDOMEN: No suspicious findings. Limited images of the upper abdomen. OTHER: Negative. CT/CT angio chest IMPRESSION: 3.9 cm ectasia of the ascending thoracic aorta Moderate diffuse calcific atherosclerosis with no aortic dissection Electronically authenticated by: PINA GOMEZ Date: 11/06/2023 13:06
[2023-11-03 15:22] LABS: Estimated GFR (African America >60 (>=60); Estimated GFR (Non-African Ame >60 (>=60)
== END 2023-11-03 15:01 | disposition home or self-care (01) ==
LOC: LAB 15:00
PROVIDERS: PCP Family Medicine; Visit Provider Internal Medicine Cardiovascular Disease
DX: I71.9 Aortic aneurysm of unspecified site, without rupture (principal)
CPT/HCPCS: 36415; 71275; 82565; Q9967

== ENCOUNTER 2023-12-06 13:47 | Outpatient (OUT) | payer MEDICARE, SELFPAY ==
--- OUTSIDE RECORDS SUMMARY | 2023-12-06 14:11 | XMS_ITS | CCD ---
Author Organization [facility] Care Team Providers Care Logistics Support Name Role Phone CAREY TREVIÑO Unavailable Unavailable [...] KATHY Attending Unavailable SHINE ELLISON Referring Unavailable NADEREAde, TERRANCE Primary Care Unavailable NADERER, TERRANCE Primary Care Unavailable SHINE ELLISON Referring Unavailable NADERER, TERRANCE Attending Unavailable RUSHERKARINA Attending Unavailable NADERER, TERRANCE Attending Unavailable RUSHER, KARINA Jones Attending Unavailable NADERER, TERRANCE Attending Unavailable NADERER, TERRANCE Attending Unavailable RUSHER, KARINA Jones Attending Unavailable NADERER, TERRANCE Attending Unavailable Allergies Allergy Classification Reported Allergen(s) Allergy Type Date of Onset Reaction(s) Facility (1 source) bee venom Drug allergy (disorder) [facility] Repository (1 source) Iodine (And Iodine Containting Drugs) Drug allergy (disorder) [facility] Rep[facility] Problems Active Problems Problem Classification Problem Date Documented Da te Episodic/Chronic Chronic obstructive pulmonary disease and bronchiectasis (2 sources) Chronic obstructive pulmonary disease, unspecified; 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: [Chronic obstructive pulmonary disease, unspecified] Onset: 01-23-2023 Chronic Coagulation and hemorrhagic disorders (1 source) Thrombocytopenia, unspecified; 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: [Thrombocytopenia, unspecified] Onset: 06-15-2017 Chronic Coronary atherosclerosis and other heart disease (3 sources) Atherosclerotic heart disease of havasupai coronary artery without angina pectoris; 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: [Atherosclerotic heart disease of havasupai coronary artery with unspecified angina pectoris] Onset: [...] Onset: 05-03-2022 Chronic Other aftercare (1 source) residential (current) use of aspirin; 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: [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] Onset: 05-03-2022 Episodic Other aftercare (1 source) Other senior living (current) drug therapy; 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: [OTH WOODEN FRAME BUILDER CURRENT DRUG THERAPY] Onset: 05-03-2022 Episodic Other aftercare (1 source) buttermaker (current) use of oral hypoglycemic drugs; 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: [PENITENTIARY USE ORAL HYPOGLYCEMIC DX] Onset: 05-03-2022 Episodic [...] Range Facility Office Visiton 06-02-2023 Follow-up visit [id number] James Barros Floresita 1950 M Date Provider Department Center 06/02/2023 KATHY FELICIANO Family History Problem Relation Age of Onset Heart attack Maternal Grandfather Family Status - Relation Status Age at Maternal Grandfather Level of Service:88766 [place] OFFICE/OUTPATIENT ESTABLISHED MOD MDM 30 MIN Normal [facility] Office Visiton 01-23-2023 Follow-up visit [id number] James Barros Floresita 1950 M Date Provider Department Center 01/23/2023 [id number] PEREZ [facility] Family History Problem Relation Age of Onset Heart attack Maternal Grandfather Family Status - Relation Status Age at Maternal Grandfather Level of Service:85367 [place] OFFICE/OUTPATIENT ESTABLISHED MOD MDM 30-39 MIN Normal [facility] Office Visiton 08-15-2022 Follow-up visit [id number] James Barros 1950 M Date Provider Department Center 08/15/2022 KATHY FELICIANO No family history on file Level of Service:38030 [place] OFFICE/OUTPATIENT ESTABLISHED MOD MDM 30-39 MIN Reason for Visit and Comments: New Patient [632] Normal [facility] GLYCOHEMOGLOBIN A1Con 2022 ADA RECOMMENDATION SEE BELOW Normal [facility] Comment on above: Result Comment: ADA RECOMMENDED LIMIT 4.0 - 6.0 ADA THERAPEUTIC TARGET < 7.0 ACTION SUGGESTED > 7.0 Performed By: #### A 1C ####[facility] [address] [address]Dr. Vipul Jean Glucose [Mass/Vol] 197 mg/dL Normal [facility] Comment on above: Performed By: #### A 1C ####[facility] [address] [address]Dr. Vipul Jean HbA1c (Bld) [Mass fraction] 8.5 % Critically high 4.5-6.2 [facility] Comment on above: Performed By: #### A 1C ####[facility] [id number] [place], [place] [address]Dr. Vipul Jean AMYLASEon 05-01-2022 Amylase [Catalytic activity/Vol] 33 U/L Normal 25-115 [facility] Comment on above: Performed By: #### A MY, HSTROPN, LIPA, CMP #### [facility] [address] [place] [address] Dr. Vipul Jean CBC AUTO DIFFon 05-01-2022 BASO # 0.1 103/ul Normal 0.0-0.1 [facility] Comment on above: Performed By: #### C BC #### [facility] [address] [place] [address] Dr. Vipul Jean Basophils/100 WBC (Bld) 0.6 % Normal 0.2-2.0 [facility] Comment on above: Performed By: #### C BC #### [facility] [address] [place] [address] Dr. Vipul Jean EO # 0.1 103/ul Normal 0.0-0.7 [facility] Comment on above: Performed By: #### C BC #### [facility] [address] [place] [address] Dr. Vipul Jean Eosinophils/100 WBC (Bld) 1.4 % Normal 0.9-7.0 [facility] Comment on above: Performed By: #### C BC #### [facility] [address] [place] [address] Dr. Vipul Jean Erythrocyte distribution width (RBC) [Ratio] 12.2 % Normal 11.0-15.0 [facility] Comment on above: Performed By: #### C BC #### [facility] [address] [place] [address] Dr. Vipul Jean Hematocrit (Bld) [Volume fraction] 46.0 % Normal 42.0-54.0 [facility] Comment on above: Performed By: #### C BC #### [facility] [address] [place] [address] Dr. Vipul Jean Hemoglobin (Bld) [Mass/Vol] 16.7 g/dL Normal 14.0-18.0 [facility] Comment on above: Performed By: #### C BC #### [facility] [address] [place] [address] Dr. Vipul Jean IG # 0.04 10e3/ul Critically high 0.00-0.03 [facility] Comment on above: Performed By: #### C BC #### [facility] [address] [place] [address] Dr. Vipul Jean IG % 0.4 % Normal 0.0-0.5 [facility] Comment on above: Performed By: #### C BC #### [facility] [address] [place] [address] Dr. Vipul Jean LYMPH # 1.7 103/ul Normal 1.2-3.8 [facility] Comment on above: Performed By: #### C BC #### [facility] [address] [place] [address] Dr. Vipul Jean Lymphocytes/100 WBC (Bld) 18.7 % Critically low 20.5-60.0 [facility] Comment on above: Performed By: #### C BC #### [facility] [address] [place] [address] Dr. Vipul Jean MANUAL DIFF REQ NO Normal [facility] Comment on above: Performed By: #### C BC #### [facility] [address] [place] [address] Dr. Vipul Jean MCH (RBC) [Entitic mass] 33.3 pg Normal 25.9-34.0 [facility] Comment on above: Performed By: #### C BC #### [facility] [address] [place] [address] Dr. Vipul Jean MCHC (RBC) [Mass/Vol] 36.3 g/dL Critically high 29.9-35.2 [facility] Comment on above: Performed By: #### C BC #### [facility] [address] [place] [address] Dr. Vipul Jean MCV (RBC) [Entitic vol] 91.6 fL Normal 80.0-94.0 [facility] Comment on above: Performed By: #### C BC #### [facility] [address] [place] [address] Dr. Vipul Jean MONO # 0.6 103/ul Normal 0.3-0.8 [facility] Comment on above: Performed By: #### C BC #### [facility] [address] [place] [address] Dr. Vipul Jean Monocytes/100 WBC (Bld) 6.9 % Normal 1.7-12.0 [facility] Comment on above: Performed By: #### C BC #### [facility] [address] [place] [address] Dr. Vipul Jean NEUT # 6.5 103/ul Normal 1.4-6.5 [facility] Comment on above: Performed By: #### C BC #### [facility] [address] [place] [address] Dr. Vipul Jean Neutrophils/100 WBC (Bld) 72.0 % Normal 43.0-75.0 [facility] Comment on above: Performed By: #### C BC #### [facility] [address] [place] [address] Dr. Vipul Jean Platelet mean volume (Bld) [Entitic vol] 10.5 fL Normal 9.5-13.5 [facility] Comment on above: Performed By: #### C BC #### [facility] [address] [place] [address] Dr. Vipul Jean PLT 125 103/ul Critically low 150-450 [facility] Comment on above: Performed By: #### C BC #### [facility] [address] [address] [address] Vipul Jean RBC 5.02 106/ul Normal 4.70-6.10 [facility] Comment on above: Performed By: #### C BC #### [facility] [address] [address] [address] Vipul Jean WBC 9.0 103/ul Normal 4.0-11.0 [facility] Comment on above: Performed By: #### C BC #### [facility] [address] ABD/PELVIS WO CONon [...] HOME MARX Date: 2022-05-01 15:31 Normal [facility] LIPASEon 05-01-2022 Lipase [Catalytic activity/Vol] 62.0 U/L Critically low 73.0-393.0 [facility] Comment on above: Performed By: #### A MY, HSTROPN, LIPA, CMP #### [facility] [address] [address] [address] Vipul Jean PROF 14(COMP METB)on 023 Albumin [Mass/Vol] 3.4 g/dL Normal 3.4-5.0 [facility] Comment on above: Performed By: #### A MY, HSTROPN, LIPA, CMP #### [facility] [address] [place] [address] Dr. Vipul Jean Albumin/Globulin [Mass ratio] 1.1 {ratio} Normal [facility] Comment on above: Performed By: #### A MY, HSTROPN, LIPA, CMP #### [facility] [address] [place] [address] Dr. Vipul Jean ALP [Catalytic activity/Vol] 93 U/L Normal 46-116 [facility] Comment on above: Performed By: #### A MY, HSTROPN, LIPA, CMP #### [facility] [address] [place] [address] Dr. Vipul Jean ALT [Catalytic activity/Vol] 38 U/L Normal 16-63 [facility] Comment on above: Performed By: #### A MY, HSTROPN, LIPA, CMP #### [facility] [address] [place] [address] Dr. Vipul Jean Anion gap [Moles/Vol] 10.6 mmol/L Normal [facility] Comment on above: Performed By: #### A MY, HSTROPN, LIPA, CMP #### [facility] [address] [place] [address] Dr. Vipul Jean AST [Catalytic activity/Vol] 29 U/L Normal 15-37 [facility] Comment on above: Performed By: #### A MY, HSTROPN, LIPA, CMP #### [facility] [address] [place] [address] Dr. Vipul Jean Bilirubin [Mass/Vol] 0.6 mg/dL Normal 0.2-1.0 [facility] Comment on above: Performed By: #### A MY, HSTROPN, LIPA, CMP #### [facility] [address] [place] [address] Dr. Vipul Jean Calcium [Mass/Vol] 10.0 mg/dL Normal 8.5-10.1 [facility] Comment on above: Performed By: #### A MY, HSTROPN, LIPA, CMP #### [facility] [address] [address] [address] Vipul Jean Chloride [Moles/Vol] 105 mmol/L Normal 98-107 [facility] Comment on above: Performed By: #### A MY, HSTROPN, LIPA, CMP #### [facility] [address] [address] [address] Vipul Jean CO2 [Moles/Vol] 24.6 mmol/L Normal 21.0-32.0 [place] Comment on above: Performed By: #### A MY, HSTROPN, LIPA, CMP #### [facility] [address] [place] [address] Dr. Vipul Jean Creatinine [Mass/Vol] 1.08 mg/dL Normal 0.70-1.30 [facility] Comment on above: Performed By: #### A MY, HSTROPN, LIPA, CMP #### [facility] [address] [address] [address] Vipul Jean EGFR-AF SALVADOREAN >60 Normal >=60 [place] Comment on above: Performed By: #### A MY, HSTROPN, LIPA, CMP #### [facility] [address] [address] [address] Vipul Jean EGFR-NON AF SALVADOREAN >60 Normal >=60 [facility] Comment on above: Performed By: #### A MY, HSTROPN, LIPA, CMP #### [facility] [address] [address] [address] Vipul Jean Globulin (S) [Mass/Vol] 3.2 g/dL Normal [facility] Comment on above: Performed By: #### A MY, HSTROPN, LIPA, CMP #### [facility] [address] [address] [address] Vipul Jean Glucose [Mass/Vol] 215 mg/dL Critically high 74-[address] [facility] Comment on above: Performed By: #### A MY, HSTROPN, LIPA, CMP #### [facility] [address] [address] [address] Vipul Jean Potassium [Moles/Vol] 4.2 mmol/L Normal 3.5-5.1 [facility] Comment on above: Performed By: #### A MY, HSTROPN, LIPA, CMP #### [facility] [address] [address] [address] Vipul Jean Protein [Mass/Vol] 6.6 g/dL Normal 6.4-8.[address] [facility] Comment on above: Performed By: #### A MY, HSTROPN, LIPA, CMP #### [facility] [address] [place] [address] Dr. Vipul Jean Sodium [Moles/Vol] 136 mmol/L Normal 136-[address] [facility] Comment on above: Performed By: #### A MY, HSTROPN, LIPA, CMP #### [facility] [address] [place] [address] Dr. Vipul Jean Urea nitrogen [Mass/Vol] 16.0 mg/dL Normal 7.0-18.0 [facility] Comment on above: Performed By: #### A MY, HSTROPN, LIPA, CMP #### [facility] [address] [place] [address] Dr. Vipul Jean Urea nitrogen/Creatinine [Mass ratio] 14.8 mg/mg Normal [facility] Comment on above: Performed By: #### A MY, HSTROPN, LIPA, CMP #### [facility] [address] [place] [address] Dr. Vipul Jean TROPONIN, HIGH SENSITIVITYon 05-01-2022 HSTROP 21.4 pg/mL Normal 4.0-76.1 [facility] Comment on above: Result Comment: CUT- OFF POINTS HAVE BEEN ESTABLISHED BASED ON THE FOURTH UNIVERSAL DEFINITIONS OF MYOCARDIAL INFARCTION. THE UPPER REFERENCE LIMIT (URL) OF TROPONIN, DEFINED THE 99TH PERCENTILE OF cTnI DISTRIBUTION IN A REFERENCE POPULATION, HAS BEEN CONFIRMED THE DECISION THRESHOLD FOR ND DIAGNOSIS. Performed By: #### A MY, HSTROPN, LIPA, CMP #### [facility] [address] [place] [address] Dr. Vipul Jean CBC AUTO DIFFon 02-14-2022 BASO # 0.1 103/ul Normal 0.0-0.1 [facility] Comment on above: Performed By: #### C BC #### [facility] [address] [place] [address] Dr. Vipul Jean Basophils/100 WBC (Bld) 0.6 % Normal 0.2-2.0 [facility] Comment on above: Performed By: #### C BC #### [facility] [address] [place] [address] Dr. Vipul Jean EO # 0.1 103/ul Normal 0.0-0.7 [facility] Comment on above: Performed By: #### C BC #### [facility] [address] [place] [address] Dr. Vipul Jean Eosinophils/100 WBC (Bld) 1.6 % Normal 0.9-7.0 [facility] Comment on above: Performed By: #### C BC #### [facility] [address] [place] [address] Dr. Vipul Jean Erythrocyte distribution width (RBC) [Ratio] 12.1 % Normal 11.0-15.0 [facility] Comment on above: Performed By: #### C BC #### [facility] [address] [place] [address] Dr. Vipul Jean Hematocrit (Bld) [Volume fraction] 47.9 % Normal 42.0-54.0 [facility] Comment on above: Performed By: #### C BC #### [facility] [address] [place] [address] Dr. Vipul Jean Hemoglobin (Bld) [Mass/Vol] 17.1 g/dL Normal 14.0-18.0 [facility] Comment on above: Performed By: #### C BC #### [facility] [address] [place] [address] Dr. Vipul Jean IG # 0.03 10e3/ul Normal 0.00-0.03 [facility] Comment on above: Performed By: #### C BC #### [facility] [address] [place] [address] Dr. Vipul Jean IG % 0.4 % Normal 0.0-0.5 [facility] Comment on above: Performed By: #### C BC #### [facility] [address] [place] [address] Dr. Vipul Jean LYMPH # 1.8 103/ul Normal 1.2-3.8 [facility] Comment on above: Performed By: #### C BC #### [facility] [address] [place] [address] Dr. Vipul Jean Lymphocytes/100 WBC (Bld) 22.4 % Normal 20.5-60.0 [facility] Comment on above: Performed By: #### C BC #### [facility] [address] [place] [address] Dr. Vipul Jean MANUAL DIFF REQ NO Normal [facility] Comment on above: Performed By: #### C BC #### [facility] [address] [place] [address] Dr. Vipul Jean MCH (RBC) [Entitic mass] 33.0 pg Normal 25.9-34.0 [facility] Comment on above: Performed By: #### C BC #### [facility] [address] [place] [address] Dr. Vipul Jean MCHC (RBC) [Mass/Vol] 35.7 g/dL Critically high 29.9-35.2 [facility] Comment on above: Performed By: #### C BC #### [facility] [address] [place] [address] Dr. Vipul Jean MCV (RBC) [Entitic vol] 92.5 fL Normal 80.0-94.0 [facility] Comment on above: Performed By: #### C BC #### [facility] [address] [place] [address] Dr. Vipul Jean MONO # 0.6 103/ul Normal 0.3-0.8 [facility] Comment on above: Performed By: #### C BC #### [facility] [address] [place] [address] Dr. Vipul Jean Monocytes/100 WBC (Bld) 7.0 % Normal 1.7-12.0 [facility] Comment on above: Performed By: #### C BC #### [facility] [address] [place] [address] Dr. Vipul Jean NEUT # 5.5 103/ul Normal 1.4-6.5 [facility] Comment on above: Performed By: #### C BC #### [facility] [address] [place] [address] Dr. Vipul Jean Neutrophils/100 WBC (Bld) 68.0 % Normal 43.0-75.0 [facility] Comment on above: Performed By: #### C BC #### [facility] [address] [place] [address] Dr. Vipul Jean Platelet mean volume (Bld) [Entitic vol] 11.0 fL Normal 9.5-13.5 [facility] Comment on above: Performed By: #### C BC #### [facility] [address] [place] [address] Dr. Vipul Jean PLT 101 103/ul Critically low 150-450 [facility] Comment on above: Performed By: #### C BC #### [facility] [address] [place] [address] Dr. Vipul Jean RBC 5.18 106/ul Normal 4.70-6.10 [facility] Comment on above: Performed By: #### C BC #### [facility] [address] [place] [address] Dr. Vipul Jean WBC 8.1 103/ul Normal 4.0-11.0 [facility] Comment on above: Performed By: #### C BC #### [facility] [address] [place] [address] Dr. Vipul Jean CRPon 02-14-2022 CRP [Mass/Vol] mg/L Normal <=1.0 [facility] Comment on above: Performed By: #### C RP, URIC #### [facility] [address] [address] [address] Vipul Jean URIC ACID SERUMon 02-14-2022 Urate [Mass/Vol] 4.4 mg/dL Normal 3.5-7.2 [facility] Comment on above: Performed By: #### C RP, URIC #### [facility] [address] [address] [address] Vipul Jean XR ANKLE LT MIN [...] by: NORY ALICIA Date: 2022-02-14 15:05 Normal [facility] CNOVSPon 06-15-2017 CNOVSP Visit (SP) Office (HEMAC[facility]) Ko BARROS ELISE Floresita ([id number]) 1950 [facility] Time Provider Department06/15/17 3:45 PM CAREY TREVIÑO During your visit today, we recorded the following information about you: Temperature Pulse Respiration Blood pressure 97 degrees 53/minute 18/minute 149/69 Weight Height 92.8 kg 1.676 Baldemar Treviño MD 06/15/2017 3:50 PM Crystaljethro Barros is a 67 year old male [...] kg (204 lb 9.6 oz) BMI 33.02 kg/q3Jwzgyir Appearance: alert and oriented, appearing in no [...] Q53.10See Cruz Treviño MDReferring Provider: AUDREY OSHEA [[id number]]Allergies As of Date: 06/15/2017(No Known Allergies)Date Reviewed: 06/15/2017Reviewed by: Liliane Molina - Fully AssessedReason for Visit: low platelets [Other] Cmt: new patient consultationPrimary Visit Diagnosis:Thrombocytopeni a (HCC) [D69.6] Other Visit Diagnoses: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 left testicle [Q53.10]Order(s):ABS GRAN CT + CBC (FOR REMOTE [facility] USE) [SQRAGCBC] Order #: [id number] FUTUREFollow-up and Disposition History RecordedPrescriptions as of [...] by CAREY TREVIÑO MD on 06/15/17 Normal [facility] PROGRESSon 06-15-2017 PROGRESS HNO ID: [id number] thor: Carey TreviñoService: (none)Author Type: PhysicianType: Progress [...] kg (204 lb 9.6 oz) BMI 33.02 kg/i5Svmmaua Appearance: alert and oriented, appearing in no [...] 752.51, ICD10: Q53.10See Cruz Treviño MD Normal [facility] Remote Abs Gran + CBC (for [facility] use only)on 06-15-2017 Absol Gran Count 5.25 k/uL Normal 1.45-7.50 [facility] Erythrocyte distribution width Auto Ratio (RBC) 12.4 % Normal 11.5-15.0 [facility] Erythrocytes (RBC) 4.87 10*6/uL Normal 4.20-6.00 [facility] Hematocrit (HCT) 45.5 % Normal 39.0-51.0 [facility] Hemoglobin mass conc (Bld) 15.7 g/dL Normal 13.0-17.0 [facility] MCH 32.2 pG Normal 26.0-34.0 [facility] MCHC mass conc (RBC) 34.5 g/dL Normal 30.5-36.0 [facility] MCV 93.4 fL Normal 80.0-100.0 [facility] Platelet mean volume (PMV) 10.8 fL Normal 9.0-12.7 [facility] Platelets 116 10*3/uL Low 150-400 [facility] WBC (Leukocytes) 7.93 10*3/uL Normal 3.70-11.00 [facility] Encounters Encounter Date Encounter Type Care Provider Facility Start: 12-04-2023 End: 12-04-2023 ambulatory TERRANCE HORTON Not Available Start: 11-20-2023 End: 11-20-2023 ambulatory KARINA PARKINSON Not Available Start: 10-03-2023 End: 10-03-2023 ambulatory TERRANCE HORTON Not Available Start: 09-06-2023 End: 09-06-2023 ambulatory TERRANCE HORTON Not Available Start: 08-21-2023 End: 08-21-2023 ambulatory KARINA PARKINSON Not Available Start: 06-28-2023 End: 06-28-2023 ambulatory TERRANCE HORTON Not Available Start: 06-16-2023 End: 07-17-2023 ambulatory SHINE ELLISON [facility] Start: 06-02-2023 End: 06-02-2023 ambulatory KATHY [facility] Start: 05-25-2023 End: 06-16-2023 ambulatory TERRANCE HORTON [facility] Start: 05-23-2023 End: 05-28-2023 Emergency department patient visit TERRANCE HORTON [facility] Start: 04-24-2023 End: 04-24-2023 ambulatory TERRANCE HORTON Not Available Start: 03-02-2023 End: 03-02-2023 ambulatory KARINA PARKINSON Not Available Start: 01-23-2023 End: 01-23-2023 ambulatory SARBJIT OLIVERA [facility] Start: 08-15-2022 End: 08-15-2022 ambulatory KATHY PAZ [facility] Start: 07-27-2022 End: 07-28-[address] TERRANCE HORTON Facility:[facility] Start: 05-01-2022 End: 05-01-[address] TERRANCE HORTON Facility:[facility] Start: 02-14-2022 End: 02-14-[address] TERRANCE HORTON Facility:[facility] Start: 06-15-2017 End: 06-16-2017 Ambulatory CAREY TREVIÑO [facility] Payers Date Payer Category Payer Medicare [id number] 1950 Unknown [id number] 2.16.84 [id number] 1950 Unknown [id number] 2.16.84 0.1.825802.3.579.2.593 1950 Unknown [id number] 2.16.84 0.1.476283.3.579.2.593 1950 Unknown [id number] 2.16.8 40.1.203209.3.579.2.1286 1950 Unknown [id number] 2.16.8 40.1.737644.3.579.2.1286 1950 Unknown [id number] 2.16.8 40.1.534534.3.579.2.1286 1950 Unknown [id number] 2.16.84 0.1.791945.3.579.2.1259 1950 Unknown [id number] 2.16.84 0.1.387511.3.579.2.1259 1950 Unknown [id number] 2.16.84 0.1.513448.3.579.2.1259 1950 Unknown [id number] 2.16.84 0.1.560027.3.579.2.9 1950 Unknown [id number] 2.16.84 0.1.678497.3.579.2.9 1950 Unknown [id number] 2.16.84 0.1.396795.3.579.2.1258 1950 Unknown [id number] 2.16.84 0.1.397832.3.579.2.9 1950 Unknown [id number] 2.16.840 .1.682689.3.579.2.1258 Progress note 06-02-2023 Note Date & Type Note Facility 06-02-2023 Note error [facility] [facility] Progress note 06-02-2023 Note Date & Type Note Facility 06-02-2023 Note Cardiology Clinic No te Chief Complaint: establish care HPI: James Barros is a 72 y.o. male with a past medical history including HTN, HLD, COPD, and CAD s/p CABG in 2010. 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 Patient presents today for [...] cessation. I emphasized (more content not included)... [facility] Progress note 01-23-2023 Note Date & [...] clinic to establish care because his previous patient registration clerk (Dr. 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 Update: 08/15/2022 Patient adamantly [...] for this visit: Coronary artery disease involving havasupai coronary artery of havasupai heart with angina pectoris ([facility]) Essential hypertension Mixed hyperlipidemia Hx of CABG Chronic obstructive pulmonary disease, unspecified COPD type ([facility]) Tobacco dependence Intermittent claudication ([facility]) Plan 1. Coronary artery disease -Multivessel [...] of twice daily. (more content not included)... [facility] Progress note 01-23-2023 Note Date & [...] All other systems reviewed and are negative. [facility] Progress note 08-15-2022 Note Date & Type Note Facility 08-15-2022 Note Cardiology Clinic No te Chief Complaint: establish care HPI: James Barros is a 72 y.o. male with a past medical history including HTN, HLD, COPD, and CAD s/p CABG in 2010. 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 Patient adamantly denies any [...] or concerns. Kathy Paz MD Interventional Cardiology [facility] Summary Purpose Family History No Family History [...] section and content) DATE CREATED AUTHOR 10/06/2017 [facility] DATE CREATED AUTHOR AUTHOR'S ORGANIZ ATION 08/01/2022 [facility] DATE CREATED AUTHOR AUTHOR'S ORGANIZ ATION 05/29/2023 [facility] DATE CREATED AUTHOR AUTHOR'S ORGANIZ ATION 06/04/2023 [facility] DATE CREATED AUTHOR AUTHOR'S ORGANIZ ATION 07/17/2023 [facility] DATE CREATED AUTHOR AUTHOR'S ORGANIZ ATION 12/05/2023 [facility] EPIC FOR RECORDS PERTAINING [...] BE BASED ON THE PRIMARY CLINICAL RECORDS. [employer] provides no warranty or guarantee of the accuracy or completeness of information in this document.
[2023-12-06 14:47] LABS: BUN Creatinine Ratio 16.8; Calcium 10.1 mg/dL (8.5-10.1); Carbon Dioxide 26.1 mmol/L (21.0-32.0); Chloride 103 mmol/L (98-107); Estimated GFR (African America >60 (>=60); Estimated GFR (Non-African Ame >60 (>=60); Glucose 196 mg/dL (74-106); Potassium 4.1 mmol/L (3.5-5.1); Sodium 138 mmol/L (136-145)
[2023-12-06 14:49] LABS: Estimated Average Glucose 137 mg/dL; Glycohemoglobin A1C 6.4 % (4.5-6.2)
== END 2023-12-06 13:48 | disposition home or self-care (01) ==
LOC: LAB 13:48
PROVIDERS: PCP Family Medicine; Visit Provider Family Medicine
DX: E11.65 Type 2 diabetes mellitus with hyperglycemia (principal); Z79.899 Other long term (current) drug therapy
CPT/HCPCS: 36415; 80048; 82043; 83036

== ENCOUNTER 2023-12-11 10:11 | Outpatient (REF) | payer MEDICARE, SELFPAY ==
--- OUTSIDE RECORDS SUMMARY | 2023-12-11 10:31 | XMS_ITS | CCD ---
Author Organization [facility] Care Team Providers Care Tobacco Stripper Name Role Phone CAREY TREVIÑO Unavailable Unavailable [...] TERRANCE Jones Consulting Unavailable NADERER, DR TERRANCE Jnoes Primary Care Unavailable REINECK, DR GEO Carlson [...] TERRANCE Attending Unavailable RUSHERKARINA Attending Unavailable NADERER, TERRACNE Attending Unavailable RUSHER, KARINA Jones Attending Unavailable NADERER, TERRANCE Attending Unavailable NADERER, TERRANCE Attending Unavailable RUSHER, KARINA Jones Attending Unavailable NADERER, TERRANCE Attending Unavailable Allergies Allergy Classification Reported Allergen(s) Allergy Type Date of Onset Reaction(s) Facility (1 source) bee venom Drug allergy (disorder) [facility] (1 source) Iodine (And Iodine Containting Drugs) Drug allergy (disorder) [facility] Problems Active Problems Problem Classification Problem Date Documented Da te Episodic/Chronic Chronic obstructive pulmonary disease and bronchiectasis (2 sources) Chronic obstructive pulmonary disease, unspecified; 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: [Chronic obstructive pulmonary disease, unspecified] Onset: 01-23-2023 Chronic Coagulation and hemorrhagic disorders (1 source) Thrombocytopenia, unspecified; 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: [Thrombocytopenia, unspecified] Onset: 06-15-2017 Chronic Coronary atherosclerosis and other heart disease (3 sources) 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; 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: [Atherosclerotic heart disease of grindstone coronary artery with unspecified angina pectoris] Onset: [...] Onset: 05-03-2022 Chronic Other aftercare (1 source) penitentiary (current) use of aspirin; 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: [DIRECTOR OF ACCOUNTS RECEIVABLE CURRENT USE OF ASPIRIN] Onset: 05-03-2022 Episodic Other aftercare (1 source) Other [facility] (current) drug therapy; 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: [OTH DIRECTOR OF ACCOUNTS RECEIVABLE CURRENT DRUG THERAPY] Onset: 05-03-2022 Episodic Other aftercare (1 source) 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 drugs; 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: [ASSISTED USE ORAL HYPOGLYCEMIC DX] Onset: 05-03-2022 Episodic [...] Range Facility Office Visiton 06-02-2023 Follow-up visit [id number] James Barros Floresita 1950 M Date Provider Department Center 06/02/2023 KATHY FELICIANO Family History Problem Relation Age of Onset Heart attack Maternal Grandfather Family Status - Relation Status Age at Maternal Grandfather Level of Service:25256 [place] OFFICE/OUTPATIENT ESTABLISHED MOD MDM 30 MIN Normal [facility] Office Visiton 01-23-2023 Follow-up visit [id number] James Barros Floresita 1950 M Date Provider Department Center 01/23/2023 [id number] PEREZ [facility] Family History Problem Relation Age of Onset Heart attack Maternal Grandfather Family Status - Relation Status Age at Maternal Grandfather Level of Service:14831 [place] OFFICE/OUTPATIENT ESTABLISHED MOD MDM 30-39 MIN Normal [facility] Office Visiton 08-15-2022 Follow-up visit [id number] James Barros 1950 M Date Provider Department Center 08/15/2022 KATHY FELICIANO No family history on file Level of Service:98401 [place] OFFICE/OUTPATIENT ESTABLISHED MOD MDM 30-39 MIN Reason for Visit and Comments: New Patient [632] Normal [facility] GLYCOHEMOGLOBIN A1Con 2022 ADA RECOMMENDATION SEE BELOW Normal [facility] Comment on above: Result Comment: ADA RECOMMENDED LIMIT 4.0 - 6.0 ADA THERAPEUTIC TARGET < 7.0 ACTION SUGGESTED > 7.0 Performed By: #### A 1C ####[facility] [id number] [address]Dr. Vipul Jean Glucose [Mass/Vol] 197 mg/dL Normal [facility] Comment on above: Performed By: #### A 1C ####[facility] [address] [address]Dr. Vipul Jean HbA1c (Bld) [Mass fraction] 8.5 % Critically high 4.5-6.2 [facility] Comment on above: Performed By: #### A 1C ####[facility] [id number] [place], [place] [address]Dr. Vipul Jean AMYLASEon 05-01-2022 Amylase [Catalytic activity/Vol] 33 U/L Normal 25-115 [facility] Comment on above: Performed By: #### A MY, HSTROPN, LIPA, CMP #### [facility] [address] [place] [address] Dr. Vipul Jean CBC AUTO DIFFon 05-01-2022 BASO # 0.1 103/ul Normal 0.0-0.1 [facility] Comment on above: Performed By: #### C BC #### [facility] [address] [place] [address] Dr. Vipul Jean Basophils/100 WBC (Bld) 0.6 % Normal 0.2-2.0 [facility] Comment on above: Performed By: #### C BC #### [facility] [address] [place] [address] Dr. Vipul Jean EO # 0.1 103/ul Normal 0.0-0.7 [facility] Comment on above: Performed By: #### C BC #### [facility] [address] [place] [address] Dr. Vipul Jean Eosinophils/100 WBC (Bld) 1.4 % Normal 0.9-7.0 [facility] Comment on above: Performed By: #### C BC #### [facility] [address] [place] [address] Dr. Vipul Jean Erythrocyte distribution width (RBC) [Ratio] 12.2 % Normal 11.0-15.0 [facility] Comment on above: Performed By: #### C BC #### [facility] [address] [place] [address] Dr. Vipul Jean Hematocrit (Bld) [Volume fraction] 46.0 % Normal 42.0-54.0 [facility] Comment on above: Performed By: #### C BC #### [facility] [address] [place] [address] Dr. Vipul Jean Hemoglobin (Bld) [Mass/Vol] 16.7 g/dL Normal 14.0-18.0 [facility] Comment on above: Performed By: #### C BC #### [facility] [address] [place] [address] Dr. Vipul Jean IG # 0.04 10e3/ul Critically high 0.00-0.03 [facility] Comment on above: Performed By: #### C BC #### [facility] [address] [place] [address] Dr. Vipul Jean IG % 0.4 % Normal 0.0-0.5 [facility] Comment on above: Performed By: #### C BC #### [facility] [address] [place] [address] Dr. Vipul Jean LYMPH # 1.7 103/ul Normal 1.2-3.8 [facility] Comment on above: Performed By: #### C BC #### [facility] [address] [place] [address] Dr. Vipul Jean Lymphocytes/100 WBC (Bld) 18.7 % Critically low 20.5-60.0 [facility] Comment on above: Performed By: #### C BC #### [facility] [address] [place] [address] Dr. Vipul Jean MANUAL DIFF REQ NO Normal [facility] Comment on above: Performed By: #### C BC #### [facility] [address] [place] [address] Dr. Vipul Jean MCH (RBC) [Entitic mass] 33.3 pg Normal 25.9-34.0 [facility] Comment on above: Performed By: #### C BC #### [facility] [address] [place] [address] Dr. Vipul Jean MCHC (RBC) [Mass/Vol] 36.3 g/dL Critically high 29.9-35.2 [facility] Comment on above: Performed By: #### C BC #### [facility] [address] [place] [address] Dr. Vipul Jean MCV (RBC) [Entitic vol] 91.6 fL Normal 80.0-94.0 [facility] Comment on above: Performed By: #### C BC #### [facility] [address] [place] [address] Dr. Vipul Jean MONO # 0.6 103/ul Normal 0.3-0.8 [facility] Comment on above: Performed By: #### C BC #### [facility] [address] [place] [address] Dr. Vipul Jean Monocytes/100 WBC (Bld) 6.9 % Normal 1.7-12.0 [facility] Comment on above: Performed By: #### C BC #### [facility] [address] [place] [address] Dr. Vipul Jean NEUT # 6.5 103/ul Normal 1.4-6.5 [facility] Comment on above: Performed By: #### C BC #### [facility] [address] [place] [address] Dr. Vipul Jean Neutrophils/100 WBC (Bld) 72.0 % Normal 43.0-75.0 [facility] Comment on above: Performed By: #### C BC #### [facility] [address] [place] [address] Dr. Vipul Jean Platelet mean volume (Bld) [Entitic vol] 10.5 fL Normal 9.5-13.5 [facility] Comment on above: Performed By: #### C BC #### [facility] [address] [place] [address] Dr. Vipul Jean PLT 125 103/ul Critically low 150-450 [facility] Comment on above: Performed By: #### C BC #### [facility] [address] [address] [address] Vipul Jean RBC 5.02 106/ul Normal 4.70-6.10 [facility] Comment on above: Performed By: #### C BC #### [facility] [address] [address] [address] Vipul Jean WBC 9.0 103/ul Normal 4.0-11.0 [facility] Comment on above: Performed By: #### C BC #### [facility] [address] ABD/PELVIS WO CONon [...] HOME MARX Date: 2022-05-01 15:31 Normal [facility] LIPASEon 05-01-2022 Lipase [Catalytic activity/Vol] 62.0 U/L Critically low 73.0-393.0 [facility] Comment on above: Performed By: #### A MY, HSTROPN, LIPA, CMP #### [facility] [address] [address] [address] Vipul Jean PROF 14(COMP METB)on 023 Albumin [Mass/Vol] 3.4 g/dL Normal 3.4-5.0 [facility] Comment on above: Performed By: #### A MY, HSTROPN, LIPA, CMP #### [facility] [address] [place] [address] Dr. Vipul Jean Albumin/Globulin [Mass ratio] 1.1 {ratio} Normal [facility] Comment on above: Performed By: #### A MY, HSTROPN, LIPA, CMP #### [facility] [address] [place] [address] Dr. Vipul Jean ALP [Catalytic activity/Vol] 93 U/L Normal 46-116 [facility] Comment on above: Performed By: #### A MY, HSTROPN, LIPA, CMP #### [facility] [address] [place] [address] Dr. Vipul Jean ALT [Catalytic activity/Vol] 38 U/L Normal 16-63 [facility] Comment on above: Performed By: #### A MY, HSTROPN, LIPA, CMP #### [facility] [address] [place] [address] Dr. Vipul Jean Anion gap [Moles/Vol] 10.6 mmol/L Normal [facility] Comment on above: Performed By: #### A MY, HSTROPN, LIPA, CMP #### [facility] [address] [place] [address] Dr. Vipul Jean AST [Catalytic activity/Vol] 29 U/L Normal 15-37 [facility] Comment on above: Performed By: #### A MY, HSTROPN, LIPA, CMP #### [facility] [address] [place] [address] Dr. Vipul Jean Bilirubin [Mass/Vol] 0.6 mg/dL Normal 0.2-1.0 [facility] Comment on above: Performed By: #### A MY, HSTROPN, LIPA, CMP #### [facility] [address] [place] [address] Dr. Vipul Jean Calcium [Mass/Vol] 10.0 mg/dL Normal 8.5-10.1 [facility] Comment on above: Performed By: #### A MY, HSTROPN, LIPA, CMP #### [facility] [address] [address] [address] Vipul Jean Chloride [Moles/Vol] 105 mmol/L Normal 98-107 [facility] Comment on above: Performed By: #### A MY, HSTROPN, LIPA, CMP #### [facility] [address] [address] [address] Vipul Jean CO2 [Moles/Vol] 24.6 mmol/L Normal 21.0-32.0 [facility] Comment on above: Performed By: #### A MY, HSTROPN, LIPA, CMP #### [facility] [address] [place] [address] Dr. Vipul Jean Creatinine [Mass/Vol] 1.08 mg/dL Normal 0.70-1.30 [facility] Comment on above: Performed By: #### A MY, HSTROPN, LIPA, CMP #### [facility] [address] [address] [address] Vipul Jean EGFR-AF MALAWIAN >60 Normal >=60 [facility] Comment on above: Performed By: #### A MY, HSTROPN, LIPA, CMP #### [facility] [address] [address] [address] Vipul Jean EGFR-NON AF MALAWIAN >60 Normal >=60 [facility] Comment on above: Performed By: #### A MY, HSTROPN, LIPA, CMP #### [facility] [address] [address] [address] Vipul Jean Globulin (S) [Mass/Vol] 3.2 g/dL Normal [facility] Comment on above: Performed By: #### A MY, HSTROPN, LIPA, CMP #### [facility] [address] [address] [address] Vipul Jean Glucose [Mass/Vol] 215 mg/dL Critically high 74-106 [facility] Comment on above: Performed By: #### A MY, HSTROPN, LIPA, CMP #### [facility] [address] [address] [address] Vipul Jean Potassium [Moles/Vol] 4.2 mmol/L Normal 3.5-5.1 [facility] Comment on above: Performed By: #### A MY, HSTROPN, LIPA, CMP #### [facility] [address] [address] [address] Vipul Jean Protein [Mass/Vol] 6.6 g/dL Normal 6.4-8.2 [facility] Comment on above: Performed By: #### A MY, HSTROPN, LIPA, CMP #### [facility] [address] [place] [address] Dr. Vipul Jean Sodium [Moles/Vol] 136 mmol/L Normal 136-145 [facility] Comment on above: Performed By: #### A MY, HSTROPN, LIPA, CMP #### [facility] [address] [place] [address] Dr. Vipul Jean Urea nitrogen [Mass/Vol] 16.0 mg/dL Normal 7.0-18.0 [facility] Comment on above: Performed By: #### A MY, HSTROPN, LIPA, CMP #### [facility] [address] [place] [address] Dr. Vipul Jean Urea nitrogen/Creatinine [Mass ratio] 14.8 mg/mg Normal [facility] Comment on above: Performed By: #### A MY, HSTROPN, LIPA, CMP #### [facility] [address] [place] [address] Dr. Vipul Jean TROPONIN, HIGH SENSITIVITYon 05-01-2022 HSTROP 21.4 pg/mL Normal 4.0-76.1 [facility] Comment on above: Result Comment: CUT- OFF POINTS HAVE BEEN ESTABLISHED BASED ON THE FOURTH UNIVERSAL DEFINITIONS OF MYOCARDIAL INFARCTION. THE UPPER REFERENCE LIMIT (URL) OF TROPONIN, DEFINED THE 99TH PERCENTILE OF cTnI DISTRIBUTION IN A REFERENCE POPULATION, HAS BEEN CONFIRMED THE DECISION THRESHOLD FOR HI DIAGNOSIS. Performed By: #### A MY, HSTROPN, LIPA, CMP #### [facility] [address] [place] [address] Dr. Vipul Jean CBC AUTO DIFFon 02-14-2022 BASO # 0.1 103/ul Normal 0.0-0.1 [facility] Comment on above: Performed By: #### C BC #### [facility] [address] [place] [address] Dr. Vipul Jean Basophils/100 WBC (Bld) 0.6 % Normal 0.2-2.0 [facility] Comment on above: Performed By: #### C BC #### [facility] [address] [place] [address] Dr. Vipul Jean EO # 0.1 103/ul Normal 0.0-0.7 [facility] Comment on above: Performed By: #### C BC #### [facility] [address] [place] [address] Dr. Vipul Jean Eosinophils/100 WBC (Bld) 1.6 % Normal 0.9-7.0 [facility] Comment on above: Performed By: #### C BC #### [facility] [address] [place] [address] Dr. Vipul Jean Erythrocyte distribution width (RBC) [Ratio] 12.1 % Normal 11.0-15.0 [facility] Comment on above: Performed By: #### C BC #### [facility] [address] [place] [address] Dr. Vipul Jean Hematocrit (Bld) [Volume fraction] 47.9 % Normal 42.0-54.0 [facility] Comment on above: Performed By: #### C BC #### [facility] [address] [place] [address] Dr. Vipul Jean Hemoglobin (Bld) [Mass/Vol] 17.1 g/dL Normal 14.0-18.0 [facility] Comment on above: Performed By: #### C BC #### [facility] [address] [place] [address] Dr. Vipul Jean IG # 0.03 10e3/ul Normal 0.00-0.03 [facility] Comment on above: Performed By: #### C BC #### [facility] [address] [place] [address] Dr. Vipul Jean IG % 0.4 % Normal 0.0-0.5 [facility] Comment on above: Performed By: #### C BC #### [facility] [address] [place] [address] Dr. Vipul Jean LYMPH # 1.8 103/ul Normal 1.2-3.8 [facility] Comment on above: Performed By: #### C BC #### [facility] [address] [place] [address] Dr. Vipul Jean Lymphocytes/100 WBC (Bld) 22.4 % Normal 20.5-60.0 [facility] Comment on above: Performed By: #### C BC #### [facility] [address] [place] [address] Dr. Vipul Jean MANUAL DIFF REQ NO Normal [facility] Comment on above: Performed By: #### C BC #### [facility] [address] [place] [address] Dr. Vipul Jean MCH (RBC) [Entitic mass] 33.0 pg Normal 25.9-34.0 [facility] Comment on above: Performed By: #### C BC #### [facility] [address] [place] [address] Dr. Vipul Jean MCHC (RBC) [Mass/Vol] 35.7 g/dL Critically high 29.9-35.2 [facility] Comment on above: Performed By: #### C BC #### [facility] [address] [place] [address] Dr. Vipul Jean MCV (RBC) [Entitic vol] 92.5 fL Normal 80.0-94.0 [facility] Comment on above: Performed By: #### C BC #### [facility] [address] [place] [address] Dr. Vipul Jean MONO # 0.6 103/ul Normal 0.3-0.8 [facility] Comment on above: Performed By: #### C BC #### [facility] [address] [place] [address] Dr. Vipul Jean Monocytes/100 WBC (Bld) 7.0 % Normal 1.7-12.0 [facility] Comment on above: Performed By: #### C BC #### [facility] [address] [place] [address] Dr. Vipul Jean NEUT # 5.5 103/ul Normal 1.4-6.5 [facility] Comment on above: Performed By: #### C BC #### [facility] [address] [place] [address] Dr. Vipul Jean Neutrophils/100 WBC (Bld) 68.0 % Normal 43.0-75.0 [facility] Comment on above: Performed By: #### C BC #### [facility] [address] [place] [address] Dr. Vipul Jean Platelet mean volume (Bld) [Entitic vol] 11.0 fL Normal 9.5-13.5 [facility] Comment on above: Performed By: #### C BC #### [facility] [address] [place] [address] Dr. Vipul Jean PLT 101 103/ul Critically low 150-450 [facility] Comment on above: Performed By: #### C BC #### [facility] [address] [place] [address] Dr. Vipul Jean RBC 5.18 106/ul Normal 4.70-6.10 [facility] Comment on above: Performed By: #### C BC #### [facility] [address] [place] [address] Dr. Vipul Jean WBC 8.1 103/ul Normal 4.0-11.0 [facility] Comment on above: Performed By: #### C BC #### [facility] [address] [place] [address] Dr. Vipul Jean CRPon 02-14-2022 CRP [Mass/Vol] mg/L Normal <=1.0 [facility] Comment on above: Performed By: #### C RP, URIC #### [facility] [address] [address] [address] Vipul Jean URIC ACID SERUMon 02-14-2022 Urate [Mass/Vol] 4.4 mg/dL Normal 3.5-7.2 [facility] Comment on above: Performed By: #### C RP, URIC #### [facility] [address] [address] [address] Vipul Jean XR ANKLE LT MIN [...] by: NORY ALICIA Date: 2022-02-14 15:05 Normal [facility] CNOVSPon 06-15-2017 CNOVSP Visit (SP) Office (HEMAC[facility]) Ko BARROS ELISE Floresita ([id number]) 1950 [facility] Time Provider Department06/15/17 3:45 PM CAREY [...] kg (204 lb 9.6 oz) BMI 33.02 kg/a4Almfnch Appearance: alert and oriented, appearing in no [...] Q53.10See Cruz Treviño MDReferring Provider: AUDREY OSHEA [[id number]]Allergies As of Date: 06/15/2017(No Known Allergies)Date Reviewed: 06/15/2017Reviewed by: Liliane Molina - Fully AssessedReason for Visit: low platelets [Other] Cmt: new patient consultationPrimary Visit Diagnosis:Thrombocytopeni a (HCC) [D69.6] Other Visit Diagnoses: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 left testicle [Q53.10]Order(s):ABS GRAN CT + CBC (FOR [facility] USE) [SQRAGCBC] Order #: [id number] FUTUREFollow-up and Disposition History RecordedPrescriptions as of [...] by CAREY TREVIÑO MD on 06/15/17 Normal [facility] PROGRESSon 06-15-2017 PROGRESS HNO ID: [id number] thor: Carey TreviñoService: (none)Author Type: PhysicianType: Progress [...] kg (204 lb 9.6 oz) BMI 33.02 kg/y2Teygrcr Appearance: alert and oriented, appearing in no [...] ABS GRAN CT + CBC (FOR [facility])2. S/P CABG x 5 - ICD9: V45.81, ICD10: Z95.1See above3. Undescended left testicle - ICD9: 752.51, ICD10: Q53.10See Cruz Treviño MD Normal [facility] Remote Abs Gran + CBC (for [facility] use only)on 06-15-2017 Absol Gran Count 5.25 k/uL Normal 1.45-7.50 Fe [facility] Erythrocyte distribution width Auto Ratio (RBC) 12.4 % Normal 11.5-15.0 [facility] Erythrocytes (RBC) 4.87 10*6/uL Normal 4.20-6.00 [facility] Hematocrit (HCT) 45.5 % Normal 39.0-51.0 [facility] Hemoglobin mass conc (Bld) 15.7 g/dL Normal 13.0-17.0 [facility] MCH 32.2 pG Normal 26.0-34.0 [facility] MCHC mass conc (RBC) 34.5 g/dL Normal 30.5-36.0 [facility] MCV 93.4 fL Normal 80.0-100.0 [facility] Platelet mean volume (PMV) 10.8 fL Normal 9.0-12.7 [facility] Platelets 116 10*3/uL Low 150-400 [facility] WBC (Leukocytes) 7.93 10*3/uL Normal 3.70-11.00 [facility] Encounters Encounter Date Encounter Type [...] Start: 06-16-2023 End: 07-17-2023 ambulatory SHINE ELLISON [facility] Start: 06-02-2023 End: 06-02-2023 ambulatory KATHY [facility] Start: 05-25-2023 End: 06-16-2023 ambulatory TERRANCE HORTON [facility] Start: 05-23-2023 End: 05-28-2023 Emergency department patient visit TERRANCE HORTON [facility] Start: 04-24-2023 End: 04-24-2023 ambulatory TERARNCE HORTON Not Available Start: 03-02-2023 End: 03-02-2023 ambulatory KARINA PARKINSON Not Available Start: 01-23-2023 End: 01-23-2023 ambulatory SARBJIT OLIVERA [facility] Start: 08-15-2022 End: 08-15-2022 ambulatory KATHY PAZ [facility] Start: 07-27-2022 End: 07-28-[address] TERRANCE HORTON Facility:[facility] Start: 05-01-2022 End: 05-01-[address] TERRANCE HORTON Facility:[facility] Start: 02-14-2022 End: 02-14-[address] TERRANCE HORTON Facility:[facility] Start: 06-15-2017 End: 06-16-2017 Ambulatory CAREY TREVIÑO [facility] Payers Date Payer Category Payer Medicare [id number] 1950 Unknown [id number] 2.16.84 [id number] 1950 Unknown [id number] 2.16.84 0.1.505594.3.579.2.593 1950 Unknown [id number] 2.16.84 0.1.038593.3.579.2.593 1950 Unknown [id number] 2.16.8 40.1.877008.3.579.2.1286 1950 Unknown [id number] 2.16.8 40.1.122202.3.579.2.1286 1950 Unknown [id number] 2.16.8 40.1.275136.3.579.2.1286 1950 Unknown [id number] 2.16.84 0.1.183282.3.579.2.1259 1950 Unknown [id number] 2.16.84 0.1.459297.3.579.2.1259 1950 Unknown [id number] 2.16.84 0.1.735620.3.579.2.1259 1950 Unknown [id number] 2.16.84 0.1.751939.3.579.2.9 1950 Unknown [id number] 2.16.84 0.1.687152.3.579.2.9 1950 Unknown [id number] 2.16.84 0.1.450487.3.579.2.1258 1950 Unknown [id number] 2.16.84 0.1.643009.3.579.2.9 1950 Unknown [id number] 2.16.840 .1.273497.3.579.2.1258 Progress note 06-02-2023 Note Date & Type Note Facility 06-02-2023 Note error [facility] Progress note 06-02-2023 Note Date & Type Note Facility 06-02-2023 Note [facility] No te Chief Complaint: establish care HPI: James Barros is a 72 y.o. male with a past medical history including HTN, HLD, COPD, and CAD s/p CABG in 2010. He was referred to Cardiology clinic to establish care because his previous information resources manager (Dr. 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 Patient presents today for [...] cessation. I emphasized (more content not included)... [facility] Progress note 01-23-2023 Note Date & Type [...] clinic to establish care because his previous information resources manager (Dr. 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 Update: 08/15/2022 Patient adamantly [...] for this visit: Coronary artery disease involving grindstone coronary artery of grindstone heart with angina pectoris ([facility]) Essential hypertension Mixed hyperlipidemia Hx of CABG Chronic obstructive pulmonary disease, unspecified COPD type ([facility]) Tobacco dependence Intermittent claudication ([facility]) Plan 1. Coronary artery disease [...] of twice daily. (more content not included)... [facility] Progress note 01-23-2023 Note Date & Type [...] All other systems reviewed and are negative. [facility] Progress note 08-15-2022 Note Date & Type Note Facility 08-15-2022 Note [facility]iology [facility] No te Chief Complaint: establish care HPI: James Barros is a 72 y.o. male with a past medical history including HTN, HLD, COPD, and CAD s/p CABG in 2010. He is referred to Cardiology clinic to establish care because his previous information resources manager (Dr. 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 Patient adamantly denies any [...] or concerns. Kathy Paz MD Interventional Cardiology [facility] Summary Purpose Family History No Family History [...] content) DATE CREATED AUTHOR 10/06/2017 [facility] DATE CREATED AUTHOR AUTHOR'S ORGANIZ ATION 08/01/2022 [facility] DATE CREATED AUTHOR AUTHOR'S ORGANIZ ATION 05/29/2023 [facility] DATE CREATED AUTHOR AUTHOR'S ORGANIZ ATION 06/04/2023 [facility] DATE CREATED AUTHOR AUTHOR'S ORGANIZ ATION 07/17/2023 [facility] DATE CREATED AUTHOR AUTHOR'S ORGANIZ ATION 12/05/2023 [facility] EPIC FOR RECORDS PERTAINING TO [...] BE BASED ON THE PRIMARY CLINICAL RECORDS. [employer] provides no warranty or guarantee of the accuracy or completeness of information in this document.
[2023-12-11 10:44] LABS: Microalbumin Urine Random 19.3 mg/dL (<=30.0)
== END 2023-12-11 10:12 | disposition home or self-care (01) ==
LOC: LAB 10:11
PROVIDERS: PCP Family Medicine; Visit Provider Family Medicine
DX: E11.65 Type 2 diabetes mellitus with hyperglycemia (principal); Z79.899 Other long term (current) drug therapy
CPT/HCPCS: 82043

== ENCOUNTER 2024-06-05 10:20 | Outpatient (OUT) | payer MEDICARE, SELFPAY ==
--- OUTSIDE RECORDS SUMMARY | 2024-06-04 15:02 | XMS_ITS | CCD ---
Author Organization [facility] Care Team Providers Care Printed Products Assembler Name Role Phone CAREY TREVIÑO Unavailable Unavailable AUDREY OSHEA Unavailable Unavailable NADERER, DR KENNY Jones Primary Care Unavailable REINECK, DR GEO Carlson Admitting Unavailabl e REINECK, DR GEO Carlson Attending Unavailabl e GLORIA ., JUAN MANUEL Consulting Unavailable ITKIN, HOME Consulting Unavailable NADERER, DR KENNY Jones Admitting Unavailable NADERER, DR KENNY Jones Attending Unavailable NADERER, DR KENNY Jones Primary Care Unavailable NADERER, DR KENNY Jones Consulting Unavailable NADERER, DR KENNY Jones Primary Care Unavailable REINECK, DR GEO Carlson Admitting Unavailabl e REINECK, DR GEO Carlson Attending Unavailabl e REINECK, DR GEO Carlson Consulting Unavailabl e ALICIA, NORY Consulting Unavailable NADEREAde, KENNY Primary Care Unavailable MALFARRUKH TRINIDAD P Consulting Unavailable INPATIENT, TELENEUROLOGY Consulting Unavail able SHINE ELLISON Referring Unavailable KENNY HORTON Primary Care Unavailable KENNY HORTON Primary Care Unavailable SHINE ELLISON Referring Unavailable KATHY PAZ Attending Unavailable KATHY PAZ Attending Unavailable SARBJIT OLIVERA Attending Unavailable Kenny Horton MD Primary Care Provider [phone] SIGIFREDO BRUNNER Attending Unavailable NADERER, KENNY Attending Unavailable RUSHER, SIGIFREDO Jones Attending Unavailable NADEREAde, KENNY Attending Unavailable NADEREAde, KENNY Attending Unavailable RUSHER, SIGIFREDO Jones Attending Unavailable NADERER, KENNY Attending Unavailable RUSHER, SIGIFREDO Jones Attending Unavailable NADEREAde, KENNY Attending Unavailable Allergies Allergy Classification Reported Allergen(s) Allergy Type Date of Onset Reaction(s) Facility (1 source) bee venom Drug allergy (disorder) [facility] Repository (1 source) Iodine (And Iodine Containting Drugs) Drug allergy (disorder) [facility] Repository (11 sources) Honey bee venom Allergy to substance 11-24-2022 Unknown [facility] Medications Current Medications Medication Drug Class(es) Dates Sig (Normalized) Sig (Original) aspirin 81 mg oral tablet (11 sources) Platelet Aggregation Inhibitor, Nonsteroidal Anti-inflammatory Drug buffered aspirin (Bufferin Low Dose) 81 MG tablet Oral Active cholecalciferol 0.05 mg oral capsule (11 sources) Vitamin D take 1 capsule by mouth in the morning cholecalciferol (Vitamin D-3) 50 MCG (2000 UT) capsule Take 2,000 Units by mouth in the morning. Active Glucose Blood (PRODIGY BLOOD GLUCOSE TEST ) (11 sources) Glucose Blood (PRODIGY BLOOD GLUCOSE TEST ) Active meclizine hydrochloride 25 mg oral tablet (11 sources) Antiemetic take 1 tablet by mouth four times daily as needed for dizziness meclizine (Antivert) 25 MG tablet Take 25 mg by mouth 4 (four) times a day as needed for dizziness Active metFORMIN hydrochloride 500 mg oral tablet (11 sources) Biguanide Start: 03-22-2024 End: 03-22-2025 take 1 tablet by mouth in the morning metFORMIN (Glucophage) 500 MG tablet Indications: Type 2 diabetes mellitus with polyneuropathy (CMS/HCC) Take 1 tablet (500 mg) by mouth in the morning and 1 tablet (500 mg) in the evening. Take with meals. 60 tablet 03/22/2024 03/22/2025 Active take 1 tablet by mouth in the mo rning metFORMIN (Glucophage) 500 MG tablet Take 500 mg by mouth in the morning and 500 mg in the evening. Take with meals. Active rosuvastatin calcium 20 mg oral tablet (11 sources) HMG-CoA Reductase Inhibitor Start: 03-22-2024 End: 03-22-2025 take 1 tablet by mouth once daily rosuvastatin (Crestor) 20 MG tablet Indications: Dyslipidemia (CMS/HCC) Take 1 tablet (20 mg) by mouth Daily 30 tablet 03/22/2024 03/22/2025 Active take 1 tablet by mouth once steffi y rosuvastatin (Crestor) 20 MG tablet Take 20 mg by mouth Daily Active sodium chloride 1000 mg oral tablet (12 sources) Start: 11-15-2023 End: 11-14-2024 take 1 tablet by mouth at bedtime sodium chloride 1 g tablet Indications: Hyponatremia Take 1 tablet (1 g) by mouth in the morning and 1 tablet (1 g) before bedtime. 60 tablet 5 12/06/2023 Active Problems Active Problems Problem Classification Problem Date Documented Da te Episodic/Chronic Chronic obstructive pulmonary disease and bronchiectasis (2 sources) Chronic obstructive pulmonary disease, unspecified; 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: [Chronic obstructive pulmonary disease, unspecified] Onset: 01-23-2023 Chronic Coagulation and hemorrhagic disorders (1 source) Thrombocytopenia, unspecified; 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: [Thrombocytopenia, unspecified] Onset: 06-15-2017 Chronic Coronary atherosclerosis and other heart disease (14 sources) Atherosclerotic heart disease of [place] coronary artery without angina pectoris; 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: [Atherosclerotic heart disease of [place] coronary artery with unspecified angina pectoris] Onset: 05-03-2022 Chronic Delirium, dementia, and amnestic and other cognitive disorders (13 sources) Senile dementia; 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: [Unspecified dementia without behavioral disturbance] Onset: 04-24-2023 09-06-2023 Chronic Diabetes mellitus with complications (20 sources) Type 2 diabetes mellitus with hyperglycemia; 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: [Hyperglycemia due to type 2 diabetes mellitus] Onset: 07-27-2022 Chronic Diabetes mellitus without complication (1 source) Type 2 diabetes mellitus without complications; 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: [TYPE 2 DM WITHOUT COMPLICATIONS] Onset: 05-03-2022 Chronic Disorders of lipid metabolism (13 sources) Mixed hyperlipidemia; 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: [Dyslipidemia] Onset: 01-23-2023 Chronic Diverticulosis and diverticulitis (1 source) Diverticulitis of large intestine without perforation or abscess without bleeding; 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: [DVTRCLI LG INT NO PERF/ABSC W/O BL] Onset: 05-03-2022 Chronic Essential hypertension (16 sources) Essential (primary) hypertension; 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: [Benign hypertension] Onset: 05-03-2022 Chronic Mood disorders (13 sources) Recurrent major depressive episodes, mild ; 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: [Major depressive disorder, recurrent, mild] Onset: 04-24-2023 09-06-2023 Chronic Mycoses (2 sources) Onychomycosis due to dermatophyte ; 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: [Tinea unguium] 02-20-2024 Episodic Other aftercare (1 source) 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; 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: [PLASTIC DUPLICATOR CURRENT USE OF ASPIRIN] Onset: 05-03-2022 Episodic Other aftercare (1 source) 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; 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: [OTH PLASTIC DUPLICATOR CURRENT DRUG THERAPY] Onset: 05-03-2022 Episodic Other aftercare (1 source) termite control technician (current) use of oral hypoglycemic drugs; 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: [PLASTIC DUPLICATOR USE ORAL HYPOGLYCEMIC DX] Onset: 05-03-2022 Episodic Other connective tissue disease (4 sources) Pain in toe; 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: [Pain in right toe(s)] 02-20-2024 Episodic Other gastrointestinal disorders (3 sources) Diarrhea, unspecified; 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: [DIARRHEA UNSPECIFIED] Onset: 05-01-2022 Episodic Other skin disorders (2 sources) Dystrophia unguium; 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: [Nail dystrophy] 02-20-2024 Episodic Spondylosis; intervertebral disc disorders; other back problems (11 sources) Degeneration of lumbar intervertebral disc; 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: [DDD (degenerative disc disease), lumbar] Onset: 04-24-2023 04-24-2023 Chronic Substance-related disorders (1 source) Nicotine dependence, cigarettes, uncomplicated; 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: [NICOTINE DEPEND CIGARETTES UNCOMP] Onset: 05-03-2022 Chronic Past or Other Problems Problem Classification Problem Date Documented Da te Episodic/Chronic Blindness and vision defects (11 sources) Visual hallucinations; 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: [Visual hallucinations] Onset: 06-28-2023 Resolved: 12-04-2023 12-04-2023 Episodic Coronary atherosclerosis and other heart disease (3 sources) Presence of aortocoronary bypass graft; 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: [PRESENCE AORTOCORONARY BYPASS GRAFT] Onset: 05-03-2022 Episodic E Codes: Natural/environment (1 source) Other and unspecified overexertion or strenuous movements or postures, initial encounter; 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: [OTH AND UNS OVREXRT/STRN MVMT/POS INT] Onset: 02-15-2022 Episodic Fluid and electrolyte disorders (12 sources) Hyponatremia; 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: [Hypo-osmolality and hyponatremia] Onset: 06-28-2023 06-28-2023 Episodic Malaise and fatigue (11 sources) Fatigue; 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: [Other fatigue] Onset: 04-24-2023 04-24-2023 Episodic Other aftercare (8 sources) Long-term current use of drug therapy; 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: [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] Onset: 04-24-2023 04-24-2023 Episodic Other aftercare (14 sources) Patient encounter status; 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: [Encounter for screening for malignant neoplasm of prostate] Onset: 04-24-2023 04-24-2023 Episodic Other injuries and conditions due to external causes (1 source) Unspecified injury of left ankle, initial encounter; 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: [UNSPECIFIED INJURY LT ANKLE INITIAL] Onset: 02-15-2022 Episodic Other nervous system disorders (11 sources) Metabolic encephalopathy; 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: [Metabolic encephalopathy] Onset: 06-28-2023 Resolved: 12-04-2023 12-04-2023 Chronic Other non-traumatic joint disorders (3 sources) Pain in left ankle and joints of left foot; 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: [PAIN IN LEFT ANKLE] Onset: 02-14-2022 Episodic Residual codes; unclassified (11 sources) Persistent insomnia; 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: [Insomnia, unspecified] Onset: 04-24-2023 04-24-2023 Episodic Residual codes; unclassified (11 sources) Transient alteration of awareness; 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: [Transient alteration of awareness] Onset: 06-28-2023 Resolved: 12-04-2023 12-04-2023 Episodic Results Test Name Value Interpretation Reference Range Facility Office Visiton 12-11-2023 Follow-up visit [id number] Kj Barros 1950 M Date Provider Department Center 12/11/2023 [id number]-KATHY PAZ D[facility] Family History Problem Relation Age of Onset Heart attack Maternal Grandfather Family Status - Relation Status Age at Maternal Grandfather Level of Service:60659 [place] OFFICE/OUTPATIENT ESTABLISHED MOD MDM 30 MIN Normal [facility] MICROALBUMIN, RAND URon 12-11-2023 MICROALBUMIN URINE RANDOM 19.3 mg/dL NINF - 30.0 mg/dL [facility] ALL BASIC METABOLIC PANELon 12-06-2023 Anion gap [Moles/Vol] 13.0 mmol/L [facility] Calcium [Mass/Vol] 10.1 mg/dL 8.5 - 10. 1 mg/dL [facility] Chloride [Moles/Vol] 103 mmol/L 98 - 107 mmol/L [facility] CO2 [Moles/Vol] 26.1 mmol/L 21.0 - 32.0 mmol/L [facility] Creatinine [Mass/Vol] 0.95 mg/dL 0.70 - 1.30 mg/dL [facility] GFR/1.73 sq M.predicted CKD-EPI (S/P/Bld) [Vol rate/Area] >60 60 - PINF [facility] Glucose [Mass/Vol] 196 mg/dL High 74 - 106 mg/dL [facility] Interpretation and review of laboratory results Abnormal [facility] Potassium [Moles/Vol] 4.1 mmol/L 3.5 - 5.1 mmol/L [facility] Sodium [Moles/Vol] 138 mmol/L 136 - 145 mmol/L [facility] EGFR-NON AF CENTRAL AFRICAN >60 60 - PINF [facility] Urea nitrogen [Mass/Vol] 16.0 mg/dL 7.0 - 18.0 mg/dL [facility] Urea nitrogen/Creatinine [Mass ratio] 16.8 mg/mg [facility] Healthcare Office Visiton 06-02-2023 Follow-up visit [id number] Kj Barros 1950 [facility] Provider Department Center 06/02/2023 3848-KATHY PAZ [facility] Family History Problem Relation Age of Onset Heart attack Maternal Grandfather Family Status - Relation Status Age at Maternal Grandfather Level of Service:95031 [place] OFFICE/OUTPATIENT ESTABLISHED MOD MDM 30 MIN Normal [facility] Office Visiton 01-23-2023 Follow-up visit [id number] Kj Barros 1950 [facility] Provider Department Center 01/23/2023 [id number]-MXSOBIOBVSARBJIT URENA [facility] Family History Problem Relation Age of Onset Heart attack Maternal Grandfather Family Status - Relation Status Age at Maternal Grandfather Level of Service:06258 [place] OFFICE/OUTPATIENT ESTABLISHED MOD MDM 30-39 MIN Normal [facility] GLYCOHEMOGLOBIN A1Con 2022 ADA RECOMMENDATION SEE BELOW Normal [facility] Comment on above: Result Comment: ADA RECOMMENDED LIMIT 4.0 - 6.0 ADA THERAPEUTIC TARGET < 7.0 ACTION SUGGESTED > 7.0 Performed By: #### A 1C ####[facility] [address] [place] [id number]. Vipul Jean Glucose [Mass/Vol] 197 mg/dL Normal [facility] Comment on above: Performed By: #### A 1C ####[facility] [address] [place] [id number] Jean HbA1c (Bld) [Mass fraction] 8.5 % Critically high 4.5-6.2 [facility] Comment on above: Performed By: #### A 1C ####[facility] [address] [place] [address]DrNoelle Jean AMYLASEon 05-01-2022 Amylase [Catalytic activity/Vol] 33 U/L Normal 25-115 [facility] Comment on above: Performed By: #### A MY, HSTROPN, LIPA, CMP #### [facility] [address] [place] [address] Dr. Vipul Jean CBC AUTO DIFFon 05-01-2022 BASO # 0.1 103/ul Normal 0.0-0.1 [facility] Comment on above: Performed By: #### C BC #### [facility] [address] [place] [address] Dr. Vipul Jean Basophils/100 WBC (Bld) 0.6 % Normal 0.2-2.0 [facility] Comment on above: Performed By: #### C BC #### [facility] [address] [place] [address] Dr. Vipul Jean EO # 0.1 103/ul Normal 0.0-0.7 [facility] Comment on above: Performed By: #### C BC #### [facility] [address] [place] [address] Dr. Vipul Jean Eosinophils/100 WBC (Bld) 1.4 % Normal 0.9-7.0 [facility] Comment on above: Performed By: #### C BC #### [facility] [address] [place] [address] Dr. Vipul Jean Erythrocyte distribution width (RBC) [Ratio] 12.2 % Normal 11.0-15.0 [facility] Comment on above: Performed By: #### C BC #### [facility] [address] [place] [address] Dr. Vipul Jean Hematocrit (Bld) [Volume fraction] 46.0 % Normal 42.0-54.0 [facility] Comment on above: Performed By: #### C BC #### [facility] [address] [place] [address] Dr. Vipul Jean Hemoglobin (Bld) [Mass/Vol] 16.7 g/dL Normal 14.0-18.0 [facility] Comment on above: Performed By: #### C BC #### [facility] [address] [place] [address] Dr. Vipul Jean IG # 0.04 10e3/ul Critically high 0.00-0.03 [facility] Comment on above: Performed By: #### C BC #### [facility] [address] [place] [address] Dr. Vipul Jean IG % 0.4 % Normal 0.0-0.5 [facility] Comment on above: Performed By: #### C BC #### [facility] [address] [place] [address] Dr. Vipul Jean LYMPH # 1.7 103/ul Normal 1.2-3.8 [facility] Comment on above: Performed By: #### C BC #### [facility] [address] [place] [address] Dr. Vipul Jean Lymphocytes/100 WBC (Bld) 18.7 % Critically low 20.5-60.0 [facility] Comment on above: Performed By: #### C BC #### [facility] [address] [place] [address] Dr. Vipul Jean MANUAL DIFF REQ NO Normal [facility] Comment on above: Performed By: #### C BC #### [facility] [address] [place] [address] Dr. Vipul Jean MCH (RBC) [Entitic mass] 33.3 pg Normal 25.9-34.0 [facility] Comment on above: Performed By: #### C BC #### [facility] [address] [address] [address] Vipul Jean MCHC (RBC) [Mass/Vol] 36.3 g/dL Critically high 29.9-35.2 [facility] Comment on above: Performed By: #### C BC #### [facility] [address] [address] [address] Vipul Jean MCV (RBC) [Entitic vol] 91.6 fL Normal 80.0-94.0 [facility] Comment on above: Performed By: #### C BC #### [facility] [address] [address] [address] Vipul Jean MONO # 0.6 103/ul Normal 0.3-0.8 [facility] Comment on above: Performed By: #### C BC #### [facility] [address] [place] [address] Dr. Vipul Jean Monocytes/100 WBC (Bld) 6.9 % Normal 1.7-12.0 [facility] Comment on above: Performed By: #### C BC #### [facility] [address] [address] [address] Vipul Jean NEUT # 6.5 103/ul Normal 1.4-6.5 [facility] Comment on above: Performed By: #### C BC #### [facility] [address] [place] [address] Dr. Vipul Jean Neutrophils/100 WBC (Bld) 72.0 % Normal 43.0-75.0 [facility] Comment on above: Performed By: #### C BC #### [facility] [address] [address] [address] Vipul Jean Platelet mean volume (Bld) [Entitic vol] 10.5 fL Normal 9.5-13.5 [facility] Comment on above: Performed By: #### C BC #### [facility] [address] [address] [address] Vipul Jean PLT 125 103/ul Critically low 150-450 [facility] Comment on above: Performed By: #### C BC #### [facility] [address] [address] [address] Vipul Jean RBC 5.02 106/ul Normal 4.70-6.10 [facility] Comment on above: Performed By: #### C BC #### [facility] [address] [address] [address] Vipul Jean WBC 9.0 103/ul Normal 4.0-11.0 [facility] Comment on above: Performed By: #### C BC #### [facility] [address] ABD/PELVIS WO CONon [...] HOME MARX Date: 2022-05-01 15:31 Normal [facility] LIPASEon 05-01-2022 Lipase [Catalytic activity/Vol] 62.0 U/L Critically low 73.0-393.0 [facility] Comment on above: Performed By: #### A MY, HSTROPN, LIPA, CMP #### [facility] [address] [address] [address] Vipul Jean PROF 14(COMP METB)on 023 Albumin [Mass/Vol] 3.4 g/dL Normal 3.4-5.0 [facility] Comment on above: Performed By: #### A MY, HSTROPN, LIPA, CMP #### [facility] [address] [place] [address] Dr. Vipul Jean Albumin/Globulin [Mass ratio] 1.1 {ratio} Normal [facility] Comment on above: Performed By: #### A MY, HSTROPN, LIPA, CMP #### [facility] [address] [place] [address] Dr. Vipul Jean ALP [Catalytic activity/Vol] 93 U/L Normal 46-116 [facility] Comment on above: Performed By: #### A MY, HSTROPN, LIPA, CMP #### [facility] [address] [place] [address] Dr. Vipul Jean ALT [Catalytic activity/Vol] 38 U/L Normal 16-63 [facility] Comment on above: Performed By: #### A MY, HSTROPN, LIPA, CMP #### [facility] [address] [place] [address] Dr. Vipul Jean Anion gap [Moles/Vol] 10.6 mmol/L Normal [facility] Comment on above: Performed By: #### A MY, HSTROPN, LIPA, CMP #### [facility] [address] [place] [address] Dr. Vipul Jean AST [Catalytic activity/Vol] 29 U/L Normal 15-37 [facility] Comment on above: Performed By: #### A MY, HSTROPN, LIPA, CMP #### [facility] [address] [place] [address] Dr. Vipul Jean Bilirubin [Mass/Vol] 0.6 mg/dL Normal 0.2-1.0 [facility] Comment on above: Performed By: #### A MY, HSTROPN, LIPA, CMP #### [facility] [address] [place] [address] Dr. Vipul Jean Calcium [Mass/Vol] 10.0 mg/dL Normal 8.5-10.1 [facility] Comment on above: Performed By: #### A MY, HSTROPN, LIPA, CMP #### [facility] [address] [address] [address] Vipul Jean Chloride [Moles/Vol] 105 mmol/L Normal 98-107 [facility] Comment on above: Performed By: #### A MY, HSTROPN, LIPA, CMP #### [facility] [address] [address] [address] Vipul Jean CO2 [Moles/Vol] 24.6 mmol/L Normal 21.0-32.[address] [facility] Comment on above: Performed By: #### A MY, HSTROPN, LIPA, CMP #### [facility] [address] [place] [address] Dr. Vipul Jean Creatinine [Mass/Vol] 1.08 mg/dL Normal 0.70-1.30 [facility] Comment on above: Performed By: #### A MY, HSTROPN, LIPA, CMP #### [facility] [address] [place] [address] Dr. Vipul Jean EGFR-AF CENTRAL AFRICAN >60 Normal >=[address] [facility] Comment on above: Performed By: #### A MY, HSTROPN, LIPA, CMP #### [facility] [address] [place] [address] Dr. Vipul Jean EGFR-NON AF CENTRAL AFRICAN >60 Normal >=60 [facility] Comment on above: Performed By: #### A MY, HSTROPN, LIPA, CMP #### [facility] [address] [place] [address] Dr. Vipul Jean Globulin (S) [Mass/Vol] 3.2 g/dL Normal [facility] Comment on above: Performed By: #### A MY, HSTROPN, LIPA, CMP #### [facility] [address] [place] [address] Dr. Vipul Jean Glucose [Mass/Vol] 215 mg/dL Critically high 74-106 [facility] Comment on above: Performed By: #### A MY, HSTROPN, LIPA, CMP #### [facility] [address] [address] [address] Vipul Jean Potassium [Moles/Vol] 4.2 mmol/L Normal 3.5-5.1 [facility] Comment on above: Performed By: #### A MY, HSTROPN, LIPA, CMP #### [facility] [address] [address] [address] Vipul Jean Protein [Mass/Vol] 6.6 g/dL Normal 6.4-8.2 [facility] Comment on above: Performed By: #### A MY, HSTROPN, LIPA, CMP #### [facility] [address] [address] [address] Vipul Jean Sodium [Moles/Vol] 136 mmol/L Normal 136-145 [facility] Comment on above: Performed By: #### A MY, HSTROPN, LIPA, CMP #### [facility] [address] [place] [address] Dr. Vipul Jean Urea nitrogen [Mass/Vol] 16.0 mg/dL Normal 7.0-18.0 [facility] Comment on above: Performed By: #### A NICHOL HSTROPN, LIPA, CMP #### [facility] [address] [address] [address] Vipul Jean Urea nitrogen/Creatinine [Mass ratio] 14.8 mg/mg Normal [facility] Comment on above: Performed By: #### A MY, HSTROPN, LIPA, CMP #### [facility] [address] [place] [address] Dr. Vipul Jean TROPONIN, HIGH SENSITIVITYon 05-01-2022 HSTROP 21.4 pg/mL Normal 4.0-76.1 [facility] Comment on above: Result Comment: CUT- OFF POINTS HAVE BEEN ESTABLISHED BASED ON THE FOURTH UNIVERSAL DEFINITIONS OF MYOCARDIAL INFARCTION. THE UPPER REFERENCE LIMIT (URL) OF TROPONIN, DEFINED THE 99TH PERCENTILE OF cTnI DISTRIBUTION IN A REFERENCE POPULATION, HAS BEEN CONFIRMED THE DECISION THRESHOLD FOR GA DIAGNOSIS. Performed By: #### A MY, HSTROPN, LIPA, CMP #### [facility] [address] [address] [address] Vipul Jean CBC AUTO DIFFon 02-14-2022 BASO # 0.1 103/ul Normal 0.0-0.1 [facility] Comment on above: Performed By: #### C BC #### [facility] [address] [place] [address] Dr. Vipul Jean Basophils/100 WBC (Bld) 0.6 % Normal 0.2-2.0 [facility] Comment on above: Performed By: #### C BC #### [facility] [address] [place] [address] Dr. Vipul Jean EO # 0.1 103/ul Normal 0.0-0.7 [facility] Comment on above: Performed By: #### C BC #### [facility] [address] [place] [address] Dr. Vipul Jean Eosinophils/100 WBC (Bld) 1.6 % Normal 0.9-7.0 [facility] Comment on above: Performed By: #### C BC #### [facility] [address] [place] [address] Dr. Vipul Jean Erythrocyte distribution width (RBC) [Ratio] 12.1 % Normal 11.0-15.0 [facility] Comment on above: Performed By: #### C BC #### [facility] [address] [place] [address] Dr. Vipul Jean Hematocrit (Bld) [Volume fraction] 47.9 % Normal 42.0-54.0 [facility] Comment on above: Performed By: #### C BC #### [facility] [address] [place] [address] Dr. Vipul Jean Hemoglobin (Bld) [Mass/Vol] 17.1 g/dL Normal 14.0-18.0 [facility] Comment on above: Performed By: #### C BC #### [facility] [address] [place] [address] Dr. Vipul Jean IG # 0.03 10e3/ul Normal 0.00-0.03 [facility] Comment on above: Performed By: #### C BC #### [facility] [address] [place] [address] Dr. Vipul Jean IG % 0.4 % Normal 0.0-0.5 [facility] Comment on above: Performed By: #### C BC #### [facility] [address] [place] [address] Dr. Vipul Jean LYMPH # 1.8 103/ul Normal 1.2-3.8 [facility] Comment on above: Performed By: #### C BC #### [facility] [address] [place] [address] Dr. Vipul Jean Lymphocytes/100 WBC (Bld) 22.4 % Normal 20.5-60.0 [facility] Comment on above: Performed By: #### C BC #### [facility] [address] [place] [address] Dr. Vipul Jean MANUAL DIFF REQ NO Normal [facility] Comment on above: Performed By: #### C BC #### [facility] [address] [place] [address] Dr. Vipul Jean MCH (RBC) [Entitic mass] 33.0 pg Normal 25.9-34.0 [facility] Comment on above: Performed By: #### C BC #### [facility] [address] [place] [address] Dr. Vipul Jean MCHC (RBC) [Mass/Vol] 35.7 g/dL Critically high 29.9-35.2 [facility] Comment on above: Performed By: #### C BC #### [facility] [address] [place] [address] Dr. Vipul Jean MCV (RBC) [Entitic vol] 92.5 fL Normal 80.0-94.0 [facility] Comment on above: Performed By: #### C BC #### [facility] [address] [place] [address] Dr. Vipul Jean MONO # 0.6 103/ul Normal 0.3-0.8 [facility] Comment on above: Performed By: #### C BC #### [facility] [address] [place] [address] Dr. Vipul Jean Monocytes/100 WBC (Bld) 7.0 % Normal 1.7-12.0 [facility] Comment on above: Performed By: #### C BC #### [facility] [address] [place] [address] Dr. Vipul Jean NEUT # 5.5 103/ul Normal 1.4-6.5 [facility] Comment on above: Performed By: #### C BC #### [facility] [address] [place] [address] Dr. Vipul Jean Neutrophils/100 WBC (Bld) 68.0 % Normal 43.0-75.0 [facility] Comment on above: Performed By: #### C BC #### [facility] [address] [place] [address] Dr. Vipul Jean Platelet mean volume (Bld) [Entitic vol] 11.0 fL Normal 9.5-13.5 [facility] Comment on above: Performed By: #### C BC #### [facility] [address] [place] [address] Dr. Vipul Jean PLT 101 103/ul Critically low 150-450 [facility] Comment on above: Performed By: #### C BC #### [facility] [address] [place] [address] Dr. Vipul Jean RBC 5.18 106/ul Normal 4.70-6.10 [facility] Comment on above: Performed By: #### C BC #### [facility] [address] [place] [address] Dr. Vipul Jean WBC 8.1 103/ul Normal 4.0-11.0 [facility] Comment on above: Performed By: #### C BC #### [facility] [address] [place] [address] Dr. Vipul Jean CRPon 02-14-2022 CRP [Mass/Vol] mg/L Normal <=1.0 [facility] Comment on above: Performed By: #### C RP, URIC #### [facility] [address] [place] [address] Dr. Vipul Jean URIC ACID SERUMon 02-14-2022 Urate [Mass/Vol] 4.4 mg/dL Normal 3.5-7.[address] [facility] Comment on above: Performed By: #### C RP, URIC #### [facility] [address] [address] [address] Vipul Jean XR ANKLE LT MIN [...] by: NORY ALICIA Date: 2022-02-14 15:05 Normal [facility] CNOVSPon 06-15-2017 CNOVSP Visit (SP) Office (HEMAC[facility]) Ko BARROS ELISE Canas ([id number]) 1950 MDate Time Provider Department06/15/17 3:45 PM [...] kg (204 lb 9.6 oz) BMI 33.02 kg/u0Uoehjat Appearance: alert and oriented, appearing in no [...] GRAN CT + CBC (FOR REMOTE [facility] USE)2. S/P CABG x 5 - ICD9: V45.81, ICD10: Z95.1See above3. Undescended left testicle - ICD9: 752.51, ICD10: Q53.10See EDITH Ruizeferikaing Provider: AUDREY OSHEA [[id number]]Allergies As of Date: 06/15/2017(No Known Allergies)Date Reviewed: 06/15/2017Reviewed by: Liliane Molina - Fully AssessedReason for Visit: low platelets [Other] Cmt: new patient consultationPrimary Visit Diagnosis:Thrombocytopeni a (HCC) [D69.6] Other Visit Diagnoses: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 left testicle [Q53.10]Order(s):ABS GRAN CT + CBC (FOR REMOTE [facility] USE) [SQRAGCBC] Order #: [id number] FUTUREFollow-up and Disposition History RecordedPrescriptions as of [...] Pharmacy TRAZODONE 100 MG TABLET >> July eJsse 06/15/2017 3:27 PM >> JESSE JulyJun 15, [...] by CAREY TREVIÑO MD on 06/15/17 Normal [facility] PROGRESSon 06-15-2017 PROGRESS HNO ID: [id number] thor: [place]: (none)Author Type: PhysicianType: Progress [...] kg (204 lb 9.6 oz) BMI 33.02 kg/i4Njmnvan Appearance: alert and oriented, appearing in no [...] GRAN CT + CBC (FOR REMOTE [facility] USE)2. S/P CABG x 5 - ICD9: V45.81, ICD10: Z95.1See above3. Undescended left testicle - ICD9: 752.51, ICD10: Q53.10See Cruz Treviño MD Normal [facility] Remote Abs Gran + CBC (for [facility] use only)on 06-15-2017 Absol Gran Count 5.25 k/uL Normal 1.45-7.50 [facility] Erythrocyte distribution width Auto Ratio (RBC) 12.4 % Normal 11.5-15.0 [facility] Erythrocytes (RBC) 4.87 10*6/uL Normal 4.20-6.00 [facility] Hematocrit (HCT) 45.5 % Normal 39.0-51.0 [facility] Hemoglobin mass conc (Bld) 15.7 g/dL Normal 13.0-17.0 [facility] MCH 32.2 pG Normal 26.0-34.0 [facility] MCHC mass conc (RBC) 34.5 g/dL Normal 30.5-36.0 [facility] MCV 93.4 fL Normal 80.0-100.0 [facility] Platelet mean volume (PMV) 10.8 fL Normal 9.0-12.7 [facility] Platelets 116 10*3/uL Low 150-400 [facility] WBC (Leukocytes) 7.93 10*3/uL Normal 3.70-11.00 [facility] Vital Signs Date Time Vital Sign Value Performing Clinician Chasei javon 05-22-2024 15:24-0500 Body height 170.2 cm Sigifredo HUAM Work Phone: [facility] 05-22-2024 15:24-0500 Body mass index (BMI) [Ratio] 28.19 kg/m2 Sigifredo Brunner DPM Work Phone: [facility] 05-22-2024 15:24-0500 Body weight 81.65 kg Sigifredo HUAM Work Phone: [facility] 03-05-2024 14:09-0500 Body height 170.2 cm Kenny Horton MD Work Phone: [facility] 03-05-2024 14:09-0500 Body mass index (BMI) [Ratio] 28.19 kg/m2 Kenny Horton MD Work Phone: [facility] 03-05-2024 14:09-0500 Body temperature 97.81 [degF] Kenny Horton MD Work Phone: [facility] 03-05-2024 14:09-0500 Body weight 81.65 kg Kenny Horton MD Work Phone: [facility] 03-05-2024 14:09-0500 Diastolic blood pressure 58 mm[Hg] Kenny Horotn MD Work Phone: [facility] 03-05-2024 14:09-0500 Heart rate 60 /min Kenny Horton MD Work Phone: [facility] 03-05-2024 14:09-0500 Respiratory rate 18 /min Kenny Horton MD Work Phone: [facility] 03-05-2024 14:09-0500 SaO2% (BldA) [Mass fraction] 98 % Kenny Horton MD Work Phone: [facility] 03-05-2024 14:09-0500 Systolic blood pressure 122 mm[Hg] Kenny Horton MD Work Phone: [facility] 02-20-2024 15:16-0500 Body height 170.2 cm Sigifredo Brunner DPM Work Phone: [facility] 02-20-2024 15:16-0500 Body mass index (BMI) [Ratio] 25.06 kg/m2 Sigifredo Brunner DPM Work Phone: [facility] 02-20-2024 15:16-0500 Body weight 72.58 kg Sigifredo Brunner DPM Work Phone: [facility] Healthcare Encounters Encounter Date Encounter Type Care Provider Facility Start: 05-22-2024 End: 05-22-2024 ambulatory SIGIFREDO BRUNNER Not Available Start: 05-22-2024 End: 05-22-2024 Patient encounter procedure Sigifredo Brunner DPM Work Phone: [facility] Comment on above: Dermatophytosis of n ail (Primary Dx); Dystrophic nail; Pain around toenail, right foot; Pain around toenail, left foot Start: 05-22-2024 End: 05-22-2024 Bamboo flowsheet Sigifredo Brunner DPM Work Phone: [facility] Start: 05-22-2024 End: 05-22-2024 Bamboo flowsheet Sigifredo Brunner DPM Work Phone: [facility] Start: 03-05-2024 End: 03-05-2024 Office outpatient visit 25 minutes Kenny Horton MD Work Phone: [facility] Comment on above: Type 2 diabetes ruma itus with hyperglycemia, without long-term current use of insulin ([facility]/HCC) (Primary Dx); Benign hypertension ([facility]/HCC); Major depressive disorder, recurrent episode, mild (HCC) ([facility]); Type 2 diabetes mellitus with polyneuropathy ([facility]/HCC); 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 ([facility]) Start: 03-05-2024 End: 03-05-2024 Bamboo flowsheet Kenny Horton MD Work Phone: [facility] Start: 03-05-2024 End: 03-05-2024 Bamboo flowsheet Kenny Horton MD Work Phone: [facility] Start: 03-05-2024 End: 03-05-2024 ambulatory KENNY HORTON Not Available Start: 02-20-2024 End: 02-20-2024 Patient encounter procedure Sigifredo Brunner DPM Work Phone: [facility] Comment on above: Dermatophytosis of n ail (Primary Dx); Dystrophic nail; Pain around toenail, right foot; Pain around toenail, left foot Start: 02-20-2024 End: 02-20-2024 ambulatory SIGIFREDO BRUNNER Not Available Start: 02-20-2024 End: 02-20-2024 Bamboo flowsheet Sigifredo Brunner DPM Work Phone: [facility] Start: 02-20-2024 End: 02-20-2024 Bamboo flowsheet Sigifredo Brunner DPM Work Phone: [facility] Start: 01-17-2024 End: 01-17-2024 Telephone encounter Kenny Horton MD Work Phone: [facility] Start: 12-11-2023 End: 12-11-2023 Clinisync Result Encounter Kenny Horton MD Work Phone: [facility] External [facility] Unsolicited Start: 12-11-2023 End: 12-11-2023 Clinisync Result Encounter Kenny Horton MD Work Phone: [facility] Unsolicited Start: 12-11-2023 End: 12-11-2023 ambulatory [facility] Start: 12-06-2023 End: 12-06-2023 Clinisync Result Encounter Kenny Horton MD Work Phone: [facility] External [facility] Unsolicited Start: 12-06-2023 End: 12-06-2023 Clinisync Result Encounter Kenny Horton MD Work Phone: [facility] External [facility] Unsolicited Start: 12-06-2023 End: 12-06-2023 Orders Only Kenny Horton MD Work Phone: [facility] Comment on above: Hyponatremia Start: 12-04-2023 End: 12-04-2023 ambulatory KENNY HORTON Not Available Start: 11-20-2023 End: 11-20-2023 ambulatory SIGIFREDO A TESHA Not Available Start: 10-03-2023 End: 10-03-2023 ambulatory KENNY HORTON Not Available Start: 09-06-2023 End: 09-06-2023 ambulatory KENNY HORTON Not Available Start: 08-21-2023 End: 08-21-2023 ambulatory SIGIFREDO A RUSHER Not Available Start: 06-28-2023 End: 06-28-2023 ambulatory KENNY HORTON Not Available Start: 06-16-2023 End: 07-17-2023 ambulatory SHINE ELLISON [facility] Start: 06-02-2023 End: 06-02-2023 ambulatory [facility] Start: 05-25-2023 End: 06-16-2023 [facility]ulatory [facility] Start: 05-23-2023 End: 05-28-2023 Emergency department patient visit [facility] Start: 01-23-2023 End: 01-23-2023 ambulatory [facility] Start: 07-27-2022 End: 07-28-[address] KENNY HORTON Facility:[facility] Start: 05-01-2022 End: 05-01-[address] KENNY HORTON Facility:[facility] Start: 02-14-2022 End: 02-14-[address] KENNY HORTON Facility:[facility] Start: 06-15-2017 End: 06-16-2017 Ambulatory CAREY TREVIÑO [facility] Procedures Date Procedure Procedure Detail Performing Clinician Start: 12-11-2023 [facility] MICROALBUMIN, RA ND UR Kenny Horton MD Work Phone: Start: 12-06-2023 ALL BASIC METABOLIC PANEL Kenny Horton MD Work Phone: Start: 04-24-2023 History of coronary artery bypass grafting History of coronary artery bypass graft Kenny Horton MD Work Phone: Plan of Treatment Date Care Activity Detail Author Start: 02-20-2025 Glaucoma screening Diabetes: R etinopathy Screening [facility] Start: 12-10-2024 Urine screening for protein Diabetes: Urine Protein Screening [facility] Start: 08-19-2024 End: 08-19-2024 Patient encounter procedure 08/19/2024 3:15 PM EDT Procedure Visit [facility] [address] [place] [phone] Sigifredo Brunner DPM [address] [place] [address] [facility] Start: 06-07-2024 Hemoglobin A1c measurement Diabetes: Hemoglobin A1C [facility] Start: 06-06-2024 End: 06-06-2024 Patient encounter procedure 06/06/2024 2:30 PM EST Office Visit [facility] [address] [place] [phone] Kenny Horton MD [address] [place] [phone] [facility] Start: 05-22-2024 End: 05-22-2024 Patient encounter procedure 05/22/2024 3:15 PM EST Procedure Visit [facility] [address] [place] [phone] Sigifredo Brunner DPRodolfo [address] [place], [place] [id number] [facility] Start: 03-05-2024 End: 03-05-2024 [facility] encounter [facility] Comment on above: Arrived Start: 02-20-2024 End: 02-20-2024 Patient encounter procedure [facility] Comment on above: Arrived Start: 12-17-2023 Influenza vaccination Influenza Vacc ine (#1) [facility] Start: 05-01-2023 Urine screening for protein Diabetes: Urine Protein Screening [facility] Healthcare Start: 1956 Pneumococcal Vaccine : 65+ Years (1 of 2 - PCV) Pneumococcal Vaccine: 65+ Years (1 of 2 - PCV) [facility] Start: 1950 Hemoglobin A1c measurement Diabetes: Hemoglobin A1C [facility] Start: 1950 Screening for malign ant neoplasm of colon [facility] Payers Date Payer Category Payer Medicare [employer] MEDICARE ADVANTAGE HU[employer] MEDICARE [id number] 2022-Present [id number] [place] [id number] 2022 Medicare (Managed Care) [employer] EDICARE ADVANTAGE [id number] 1959 Medicare [id number] 1950 Unknown [id number] [id number]. 2.593 1948 Unknown [id number] 2.16.840.1.623558.3.579. 2.593 1948 Unknown [id number] 2.16.840.1.919776.3.579. 2.593 1948 Unknown [id number] 2.16.840.1.176804.3.579. 2.1286 1948 Unknown [id number] 2.16.840.1.762130.3.579. 2.1286 1948 Unknown [id number] 2.16.840.1.364456.3.579. 2.1286 1948 Unknown [id number] 2.16.840.1.207488.3.579. 2.1259 1948 Unknown [id number] 2.16.840.1.815038.3.579. 2.1259 1948 Unknown [id number] 2.16.840.1.389772.3.579. 2.1259 1948 Unknown [id number] 2.16.840.1.638301.3.579. 2.1259 1948 Unknown [id number] 2.16.840.1.206524.3.579. 2.1259 1948 Unknown [id number] 2.16.840.1.436498.3.579. 2.1259 1948 Unknown [id number] 2.16.840.1.331730.3.579. 2.1259 1948 Unknown [id number] 2.16.840.1.454743.3.579. 2.1259 1948 Unknown [id number] 2.16.840.1.499198.3.579. 2.1259 Social History Date Type Detail Facility Start: [facility]23 [facility] of tobacco use [facility]igarette [facility] Start: 11-20-2023 Tobacco use and exposure Smoke less tobacco non-user [facility] Start: 12-04-2023 End: 05-22-2024 Alcoholic beverage intake Lifetime non-drinker (finding) [facility] Start: 12-04-2023 End: 03-05-2024 History of Social function [facility] Start: 12-04-2023 End: 03-05-2024 Tobacco use panel [facility] Start: 03-02-2023 Tobacco Comment Start smoking at age 7 [facility] Start: 11-24-2022 Alcohol Comment Caffeine intak e: 3-4 cups per day [facility] Start: 1950 Sex assigned at Not on file N [facility] Clinical Notes 01-23-2023 to 05-22-2024 Sigifredo Brunner DPM - 05/22/2024 3:15 PM Vivian Horton MD - 03/05/2024 4:27 PM Vivian Horton MD - 03/05/2024 4:27 PM Vivian Horton MD - 03/05/2024 4:27 PM ESTPatient Instructions Note Date & Type Note Facility 05-22-2024 History of Present illness Narrative Images from the original note were not included. Subjective Patient ID: Kj Barros is a 73 y.o. male who presents for Nail care ( Kj Barros is a 73 y.o. male, Pt presents today with his requesting diabetic foot care./BS: 179 A1C: 6.4/Lv Dr. Horton 03/05/2024 SS: 9.5W). HPI HPI Onychomycosis/Toenail Fungus: Presents requesting nail care. Symptomatic toenail deformity. Location: all digits: Toenail deformity and discoloration; problematic/symptomatic. Duration: chronic toenail deformity, multiple years duration. Severity of symptoms: mild-moderate, recently impacting his ability to wear shoes comfortably. Onset: gradual, without injury or trauma. Status: progressively problematic/symptomatic over the past several weeks or so, impacting his ability to walk comfortably. Context: hard to trim, hard to reach; self-care is difficult, ineffective and not practical; exposing patient to considerable risk. His spouse is unable to provide care. Characteristics: elongated, discolored, thickened, pain , pressure , /lifting; without bleeding or drainage. Relieved by: palliative care measures provide effective transient symptom relief. Previous Treatment: palliative care as noted. Risk factors: toenail deformity, shoe and/or digital trauma and related complications, type II diabetes. Aspirin therapy. Visual impairment. Long-standing cigarette smoking by history. Mobility and flexibility restraints. Aggravated by: shoe gear , pressure , walking; catching and snagging on clothing etc.. Medications Current Outpatient Medications: buffered aspirin (Bufferin Low Dose) 81 MG tablet, Oral, Disp: , Rfl: cholecalciferol (Vitamin D-3) 50 MCG (2000 UT) capsule, Take 2,000 Units by mouth in the morning., Disp: , Rfl: Glucose Blood ([employer] BLOOD GLUCOSE TEST ), , Disp: , Rfl: meclizine (Antivert) 25 MG tablet, Take 25 mg by mouth 4 (four) times a day as needed for dizziness, Disp: , Rfl: metFORMIN (Glucophage) 500 MG tablet, Take 1 tablet (500 mg) by mouth in the morning and 1 tablet (500 mg) in the evening. Take with meals., Disp: 60 tablet, Rfl: 11 rosuvastatin (Crestor) 20 MG tablet, Take 1 tablet (20 mg) by mouth Daily, Disp: 30 tablet, Rfl: 11 sodium chloride 1 g tablet, Take 1 tablet (1 g) by mouth in the morning and 1 tablet (1 g) before bedtime., Disp: 60 tablet, Rfl: 5 Allergies Bee venom Past Surgical History Past Surgical History: Procedure Laterality Date CHOLECYSTECTOMY CORONARY ARTERY BYPASS GRAFT CT ANGIOGRAM CHEST 11/06/2023 CT ANGIOGRAM CHEST EYE SURGERY Family History Family History Problem Relation Name Age of Onset Diabetes Mother Hepatitis Mother Diabetes Father Stroke Father Coronary artery disease Father Objective General Examination: GENERAL EXAMINATION: alert and oriented.pleasant disposition. Wearing [employer] footwear. His spouse, Leydi is present. FOOT EXAM: Date of Last Foot Exam 05/22/2024 Sensory testing performed: sensations normal Sensory and motor testing performed: strength normal Pedal pulse taking performed: 1+ Vascular: DORSALIS PEDIS PULSE: bilaterally, 1/4. POSTERIOR TIBIAL PULSE: bilaterally, faintly palpable. TEMPERATURE GRADIENT: warm to cool. EDEMA: unremarkable for ankle edema. CAPILLARY FILLING TIME(sec): capillary fill intact bilateral digits less than 3 secs. Neurologic: MUSCLE POWER: no focal deficits. SHARP SENSATION: tactile and soft touch sensation intact. SEMMES-JALIL 5.07 MONOFILAMENT: intact localization of points plantarly. Dermatologic: SKIN FINDINGS: intact. Skin turgor is good with mild non-inflamed xerosis bilateral. HYPERTROPHIC LESION: minimally raised, non-inflamed, non-tender tyloma lesion sub-5th metatarsal head bilateral. No other forefoot or digital keratotic pressure lesions are noted. NAIL PATHOLOGY: All digits: None are spared: TDO deformity: toenail dystrophy, elongation, thickening, discoloration, brittleness, clubbing, subtotal detachment, periungual hyperkeratosis, without drainage. MYCOSIS SCALE : total with debris, multiple digits. INTERDIGITAL MACERATION: clean, dry, non-inflamed. ULCER: no sign of ulceration or open wound. SKIN PATHOLOGY: texture, turgor, hair growth, within normal limits. Ankle / Foot: RANGE OF MOTION: functional ankle, subtalar and MTPl range of motion without pain. Radiology: Assessment/Plan Symptomatic onychodystrophy/mycosis all digits. Stable tyloma lesion sub-5 right foot. Type II diabetes. Chronic, stable PAD. Plan: Notes: patient and his spouse are content to continue conservative and palliative care measures; understood and again indicated. Continue AmLactin therapy daily; compliance is encouraged. Discourage any unshod walking or weightbearing activity. Diabetic education and assessment. Hygiene and skin care measures discussed. Procedure: Toenail Debridement: Aseptic technique: power/manual instrumentation: onychodebridement length and thickness, curretage of offending crypotic margins, darnell-ungual debris, providing effective pressure and symptom relief, reducing shoe and digital trauma. This note was created with the assistance of a speech recognition program. While intending to generate a timely document that accurately reflects the content of the visit, no guarantee can be provided that every grammatical or spelling mistake has been or will be identified or corrected. Thank you for your understanding. Sigifredo Brunner DPM documented in this encounter [facility] 03-05-2024 History of Present illness Narrative Associated Problem(s): Benign hypertension (CMS/HCC) BP normal and monitor PRN. Associated Problem(s): Major depressive disorder, recurrent episode, mild (HCC) (CMS/HCC) Doing well without medication and monitor. 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 Associated Problem(s): Type 2 diabetes mellitus with hyperglycemia, without long-term current use of insulin (CMS/HCC) Reports BS controlled and last A1C 6.4. Stick to ADA diet and limit carbs. Associated Problem(s): Type 2 diabetes mellitus with polyneuropathy (CMS/HCC) Occasional symptoms but mild and monitor. Images from the original note were not included. Subjective Patient ID: Kj Barros is a 73 y.o. male who presents for Follow-up (3 m). Follow up DM, HTN, depression, neuropathy, and dementia. Reports BS stable and around 160. Taking medication daily. Tries to eat well and stick to ADA diet. Denies signs of elevated BS such as polyuria, polyphagia or polydipsia. Checking BP PRN and reports typically controlled. BP normal today. Taking medication daily and tolerating without side effects. Depression stable without medication. Occasional symptoms and at times down and sad but mild. Dementia unchanged. Reports continued forgetfulness and confusion. At times forgets people and seems confused. Not able to remember names or places. Forgets conversations. Aware he's getting forgetful and causing depression. No further hallucinations. Neuropathy stable. Mild pain and burning in feet and worse after walking and in evening. Overall symptoms tolerable. Review of Systems Constitutional: Negative for fatigue. Respiratory: Negative for cough, shortness of breath and wheezing. Cardiovascular: Negative for chest pain and palpitations. Gastrointestinal: Negative for abdominal pain, diarrhea, nausea and vomiting. Genitourinary: Negative for dysuria. Objective Physical Exam Constitutional: General: He is not in acute distress. Appearance: Normal appearance. HENT: Head: Normocephalic. Right Ear: Tympanic membrane and ear canal normal. Left Ear: Tympanic membrane and ear canal normal. Eyes: Extraocular Movements: Extraocular movements intact. Pupils: Pupils are equal, round, and reactive to light. Cardiovascular: Rate and Rhythm: Normal rate and regular rhythm. Heart sounds: No murmur heard. No friction rub. No gallop. Pulmonary: Breath sounds: Normal breath sounds. No wheezing, rhonchi or rales. Abdominal: General: Bowel sounds are normal. There is no distension. Palpations: Abdomen is soft. Tenderness: There is no abdominal tenderness. There is no guarding or rebound. Musculoskeletal: Left lower leg: No edema. Neurological: Mental Status: He is alert. Assessment/Plan Problem List Items Addressed This Visit Type 2 diabetes mellitus with hyperglycemia, without long-term current use of insulin (CMS/HCC) - Primary Reports BS controlled and last A1C 6.4. Stick to ADA diet and limit carbs. Benign hypertension (CMS/HCC) BP normal and monitor PRN. Major depressive disorder, recurrent episode, mild (HCC) (CMS/HCC) Doing well without medication and monitor. 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 (CMS/HCC) Symptoms mild and monitor. Type 2 diabetes mellitus with polyneuropathy (CMS/HCC) Occasional symptoms but mild and monitor. documented in this encounter [facility] 02-20-2024 History of Present illness Narrative Images from the original note were not included. Subjective Patient ID: Kj Barros is a 73 y.o. male who presents for DM Foot Care (Pt presents today with his requesting diabetic foot care./BS: 148 A1C: 6.4/Lv Dr. Horton 12-04-2023/SS: 9.5W). HPI HPI Onychomycosis/Toenail Fungus: Patient presents with his requesting nail care. Symptomatic toenail deformity. Location: all digits: Toenail deformity and discoloration; problematic/symptomatic. Duration: chronic toenail deformity, multiple years duration. Severity of symptoms: mild-moderate, recently impacting his ability to wear shoes comfortably. Onset: gradual, without injury or trauma. Status: progressively problematic/symptomatic over the past several weeks or so, impacting his ability to walk comfortably. Context: hard to trim, hard to reach; self-care is difficult, ineffective and not practical; exposing patient to considerable risk. His spouse is unable to provide care. Characteristics: elongated, discolored, thickened, pain , pressure , /lifting; without bleeding or drainage. Relieved by: palliative care measures provide effective transient symptom relief. Previous Treatment: palliative care as noted. Risk factors: toenail deformity, shoe and/or digital trauma and related complications, type II diabetes. Aspirin therapy. Visual impairment. Long-standing cigarette smoking by history. Mobility and flexibility restraints. Aggravated by: shoe gear , pressure , walking; catching and snagging on clothing etc.. Medications Current Outpatient Medications: buffered aspirin (Bufferin Low Dose) 81 MG tablet, Oral, Disp: , Rfl: cholecalciferol (Vitamin D-3) 50 MCG (2000 UT) capsule, Take 2,000 Units by mouth in the morning., Disp: , Rfl: Glucose Blood (PRODIGY BLOOD GLUCOSE TEST ), , Disp: , Rfl: meclizine (Antivert) 25 MG tablet, Take 25 mg by mouth 4 (four) times a day as needed for dizziness, Disp: , Rfl: metFORMIN (Glucophage) 500 MG tablet, Take 500 mg by mouth in the morning and 500 mg in the evening. Take with meals., Disp: , Rfl: rosuvastatin (Crestor) 20 MG tablet, Take 20 mg by mouth Daily, Disp: , Rfl: sodium chloride 1 g tablet, Take 1 tablet (1 g) by mouth in the morning and 1 tablet (1 g) before bedtime., Disp: 60 tablet, Rfl: 5 Allergies Bee venom Past Surgical History Past Surgical History: Procedure Laterality Date CHOLECYSTECTOMY CORONARY ARTERY BYPASS GRAFT CT ANGIOGRAM CHEST 11/06/2023 CT ANGIOGRAM CHEST EYE SURGERY Family History Family History Problem Relation Name Age of Onset Diabetes Mother Hepatitis Mother Diabetes Father Stroke Father Coronary artery disease Father Objective General Examination: GENERAL EXAMINATION: alert and oriented.pleasant disposition. Wearing extra-depth shoes with accommodative orthoses. His spouse, Leydi is present. FOOT EXAM: Date of Last Foot Exam 02/20/2024 Sensory testing performed: sensations normal Sensory and motor testing performed: strength normal Pedal pulse taking performed: 1+ Vascular: DORSALIS PEDIS PULSE: bilaterally, 1/4. POSTERIOR TIBIAL PULSE: bilaterally, faintly palpable. TEMPERATURE GRADIENT: warm to cool. EDEMA: unremarkable for ankle edema. CAPILLARY FILLING TIME(sec): capillary fill intact bilateral digits less than 3 secs. Neurologic: MUSCLE POWER: no focal deficits. SHARP SENSATION: tactile and soft touch sensation intact. SEMMES-JALIL 5.07 MONOFILAMENT: intact localization of points plantarly. Dermatologic: SKIN FINDINGS: intact. Skin turgor is good with mild non-inflamed xerosis bilateral. HYPERTROPHIC LESION: minimally raised, non-inflamed, non-tender tyloma lesion sub-5th metatarsal head bilateral. No other forefoot or digital keratotic pressure lesions are noted. NAIL PATHOLOGY: All digits: None are spared: TDO deformity: toenail dystrophy, elongation, thickening, discoloration, brittleness, clubbing, subtotal detachment, periungual hyperkeratosis, without drainage. MYCOSIS SCALE :total with debris, multiple digits. INTERDIGITAL MACERATION: clean, dry, non-inflamed. ULCER: no sign of ulceration or open wound. SKIN PATHOLOGY: texture, turgor, hair growth, within normal limits. Ankle / Foot: RANGE OF MOTION: functional ankle, subtalar and MTPl range of motion without pain. Radiology: Assessment/Plan Symptomatic onychodystrophy/mycosis all digits. Stable tyloma lesion sub-5 right foot. Type II diabetes. Chronic, stable PAD. Plan: Notes: patient and his spouse are content to continue conservative and palliative care measures; understood and again indicated. Continue AmLactin therapy daily; compliance is encouraged. Discourage any unshod walking or weightbearing activity. Diabetic education and assessment. Hygiene and skin care measures discussed. Procedure: Toenail Debridement: Aseptic technique: power/manual instrumentation: onychodebridement length and thickness, curretage of offending crypotic margins, darnell-ungual debris, providing effective pressure and symptom relief, reducing shoe and digital trauma. This note was created with the assistance of a speech recognition program. While intending to generate a timely document that accurately reflects the content of the visit, no guarantee can be provided that every grammatical or spelling mistake has been or will be identified or corrected. Thank you for your understanding. Sigifredo Brunner DPM documented in this encounter [facility] 02-20-2024 Instructions Sigifredo Brunner DPM - 02/20/2024 3:15 PM EST As noted documented in this encounter [facility] 01-17-2024 Telephone encounter Note Error [facility] 01-17-2024 Miscellaneous Notes Error documented in this encounter [facility] 12-11-2023 Note Cardiology Clinic No te Chief Complaint: establish care HPI: Kj Barros is a 72 y.o. male with a past medical history including HTN, HLD, COPD, and CAD s/p CABG in 2010. He was referred to Cardiology clinic to establish care because his previous field case manager (Dr. 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 Patient presents today for follow-up. Patient adamantly denies any cardiac complaints or concerns. Patient denies any chest pain or shortness of breath. Patient denies any lower extremity edema, orthopnea, or proximal nocturnal dyspnea. No near-syncope or syncope. No dizziness or lightheadedness. 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 Cardiology ROS: 10 point ROS is performed and is negative unless otherwise specified in HPI. Past Medical History He has a past [...] well controlled -HLD: On resuvastatin -Tobacco abuse -Ectasia of aorta Plan: -Continue Aspirin, beta andree for CAD. Continue resuvastatin 40 mg daily for CAD and HLD -Continue lisinopril and Toprol for HTN -I again spent 7 minutes counseling the patient on the importance of smoking cessation. I emphasized the risk of continued smoking. I offered the patient various resources. Patient respectfully declines at this time. -Repeat CT chest in 1 year -Patient to follow up with PCP/pulmonary regarding pulmonary noduels -Optimize medical management -Aggressive risk factor modification -Plan of care discussed with patient. All questions were answered. Patient voices understanding and is agreeable with current plan. -Patient was educated on red flag symptoms. Strict return precautions were provided. Patient verbalizes understanding -Follow-up in cardiology clinic in 6 months, or sooner as needed Kathy Paz MD Interventional Cardiology [facility] 06-02-2023 Note Cardiology Clinic No te Chief Complaint: establish care HPI: Kj Barros is a 72 y.o. male with a past medical history including HTN, HLD, COPD, and CAD s/p CABG in 2010. He was referred to Cardiology clinic to establish care because his previous field case manager (Dr. 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 Patient presents today [...] cessation. I emphasized (more content not included)... [facility] 06-02-2023 Note error [facility] 01-23-2023 Note Patient here for 6 m [...] All other systems reviewed and are negative. [facility] 01-23-2023 Note Cardiology Clinic No te Subjective Kj Barros is a 72 y.o. year old male patient with HTN, HLD, COPD, and CAD s/p CABG in 2010 seen in follow-up. Patient Active Problem List Diagnosis S/P CABG x 5 Thrombocytopenia ([facility]) Type 2 diabetes mellitus without complication, without long-term current use of insulin ([facility]) Undescended left testicle Family History Problem Relation Name Age of Onset Heart attack Maternal Grandfather Social History Tobacco Use Smoking status: Every Day Packs/day: 1.00 Types: Cigarettes Smokeless tobacco: Never Substance Use Topics Alcohol use: Not Currently HPI Kj Barros is a 72 y.o. male with a past medical history including HTN, HLD, COPD, and CAD s/p CABG in 2010. He was referred to Cardiology clinic to establish care because his previous field case manager (Dr. 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 Update: 08/15/2022 Patient [...] for this visit: Coronary artery disease involving [place] coronary artery of [place] heart with angina pectoris (CMS/HCC) Essential hypertension Mixed hyperlipidemia Hx of CABG Chronic obstructive pulmonary disease, unspecified COPD type (CMS/HCC) Tobacco dependence Intermittent claudication ([facility]) Plan 1. Coronary artery disease [...] of twice daily. (more content not included)... [facility] Evaluation note Diagnosis Type 2 diabetes mellitus with hyperglycemia, without long-term current use of insulin (CMS/HCC)- Primary Benign hypertension (CMS/HCC) Essential hypertension, benign Major depressive disorder, recurrent episode, moderate (CMS/HCC) Major depressive disorder, recurrent episode, moderate Senile dementia with behavioral disturbance (CMS/HCC) Other fatigue Atherosclerosis of [place] coronary artery of [place] heart without angina pectoris (CMS/HCC) History of coronary artery bypass graft Postsurgical aortocoronary bypass status Dyslipidemia (CMS/HCC) Other and unspecified hyperlipidemia Encounter for long-term (current) use of medications Encounter for long-term (current) use of other medications Screening PSA (prostate specific antigen) Special screening for malignant neoplasm of prostate Transient alteration of awareness- Primary Visual hallucinations Psychophysical visual disturbances Metabolic encephalopathy Senile dementia with behavioral disturbance (CMS/HCC) Encounter for long-term (current) use of medications Encounter for long-term (current) use of other medications Benign hypertension (CMS/HCC) Essential hypertension, benign Metabolic encephalopathy- Primary 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 (CMS/HCC) Type 2 diabetes mellitus with hyperglycemia, without long-term current use of insulin (CMS/HCC) Benign hypertension (CMS/HCC) Essential hypertension, benign Major depressive disorder, recurrent episode, mild (HCC) (CMS/HCC) Major depressive disorder, recurrent episode, mild Hyponatremia- Primary Hyposmolality and/or hyponatremia 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 (CMS/HCC) Benign hypertension (CMS/HCC) Essential hypertension, benign Type 2 diabetes mellitus with hyperglycemia, without long-term current use of insulin (CMS/HCC) Type 2 diabetes mellitus with hyperglycemia, without long-term current use of insulin (CMS/HCC)- Primary Benign hypertension (CMS/HCC) Essential hypertension, benign Major depressive disorder, recurrent episode, mild (HCC) (CMS/HCC) Major depressive disorder, recurrent episode, mild 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 (CMS/HCC) Type 2 diabetes mellitus with polyneuropathy (CMS/HCC) Type II or unspecified type diabetes mellitus with neurological manifestations, not stated as uncontrolled Encounter for long-term (current) use of medications Encounter for long-term (current) use of other medications Colon cancer screening Special screening for malignant neoplasms, colon Dermatophytosis of nail- Primary Dystrophic nail Other specified disease of nail Pain around toenail, right foot Pain around toenail, left foot documented in this encounter [facility] HealthcareEvaluation note* Diagnosis Type 2 diabetes mellitus with hyperglycemia, without long-term current use of insulin (CMS/HCC)- Primary Benign hypertension (CMS/HCC) Essential hypertension, benign Major depressive disorder, recurrent episode, moderate (CMS/HCC) Major depressive disorder, recurrent episode, moderate Senile dementia with behavioral disturbance (CMS/HCC) Other fatigue Atherosclerosis of [place] coronary artery of [place] heart without angina pectoris (CMS/HCC) History of coronary artery bypass graft Postsurgical aortocoronary bypass status Dyslipidemia (CMS/HCC) Other and unspecified hyperlipidemia Encounter for long-term (current) use of medications Encounter for long-term (current) use of other medications Screening PSA (prostate specific antigen) Special screening for malignant neoplasm of prostate Transient alteration of awareness- Primary Visual hallucinations Psychophysical visual disturbances Metabolic encephalopathy Senile dementia with behavioral disturbance (CMS/HCC) Encounter for long-term (current) use of medications Encounter for long-term (current) use of other medications Benign hypertension (CMS/HCC) Essential hypertension, benign Metabolic encephalopathy- Primary 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 (CMS/HCC) Type 2 diabetes mellitus with hyperglycemia, without long-term current use of insulin (CMS/HCC) Benign hypertension (CMS/HCC) Essential hypertension, benign Major depressive disorder, recurrent episode, mild (HCC) (CMS/HCC) Major depressive disorder, recurrent episode, mild Hyponatremia- Primary Hyposmolality and/or hyponatremia 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 (CMS/HCC) Benign hypertension (CMS/HCC) Essential hypertension, benign Type 2 diabetes mellitus with hyperglycemia, without long-term current use of insulin (CMS/HCC) Type 2 diabetes mellitus with hyperglycemia, without long-term current use of insulin (CMS/HCC)- Primary Benign hypertension (CMS/HCC) Essential hypertension, benign Major depressive disorder, recurrent episode, mild (HCC) (CMS/HCC) Major depressive disorder, recurrent episode, mild 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 (CMS/HCC) Type 2 diabetes mellitus with polyneuropathy (CMS/HCC) Type II or unspecified type diabetes mellitus with neurological manifestations, not stated as uncontrolled Encounter for long-term (current) use of medications Encounter for long-term (current) use of other medications Colon cancer screening Special screening for malignant neoplasms, colon Type 2 diabetes mellitus with hyperglycemia, without long-term current use of insulin (CMS/HCC)- Primary Benign hypertension (CMS/HCC) Essential hypertension, benign Major depressive disorder, recurrent episode, mild (HCC) (CMS/HCC) Major depressive disorder, recurrent episode, mild Type 2 diabetes mellitus with polyneuropathy (CMS/HCC) Type II or unspecified type diabetes mellitus with neurological manifestations, not stated as uncontrolled 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 (CMS/HCC) documented in this encounter [facility] HealthcareEvaluation note* Diagnosis Hyponatremia Hyposmolality and/or hyponatremia documented in this encounter [facility]* Diagnosis Type 2 diabetes mellitus with hyperglycemia, without long-term current use of insulin (CMS/HCC)- Primary Benign hypertension (CMS/HCC) Essential hypertension, benign Major depressive disorder, recurrent episode, moderate (CMS/HCC) Major depressive disorder, recurrent episode, moderate Senile dementia with behavioral disturbance (CMS/HCC) Other fatigue Atherosclerosis of [place] coronary artery of [place] heart without angina pectoris (CMS/HCC) History of coronary artery bypass graft Postsurgical aortocoronary bypass status Dyslipidemia (CMS/HCC) Other and unspecified hyperlipidemia Encounter for long-term (current) use of medications Encounter for long-term (current) use of other medications Screening PSA (prostate specific antigen) Special screening for malignant neoplasm of prostate Transient alteration of awareness- Primary Visual hallucinations Psychophysical visual disturbances Metabolic encephalopathy Senile dementia with behavioral disturbance (CMS/HCC) Encounter for long-term (current) use of medications Encounter for long-term (current) use of other medications Benign hypertension (CMS/HCC) Essential hypertension, benign Metabolic encephalopathy- Primary 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 (CMS/HCC) Type 2 diabetes mellitus with hyperglycemia, without long-term current use of insulin (CMS/HCC) Benign hypertension (CMS/HCC) Essential hypertension, benign Major depressive disorder, recurrent episode, mild (HCC) (CMS/HCC) Major depressive disorder, recurrent episode, mild Hyponatremia- Primary Hyposmolality and/or hyponatremia 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 (CMS/HCC) Benign hypertension (CMS/HCC) Essential hypertension, benign Type 2 diabetes mellitus with hyperglycemia, without long-term current use of insulin (CMS/HCC) Type 2 diabetes mellitus with hyperglycemia, without long-term current use of insulin (CMS/HCC)- Primary Benign hypertension (CMS/HCC) Essential hypertension, benign Major depressive disorder, recurrent episode, mild (HCC) (CMS/HCC) Major depressive disorder, recurrent episode, mild 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 (CMS/HCC) Type 2 diabetes mellitus with polyneuropathy (CMS/HCC) Type II or unspecified type diabetes mellitus with neurological manifestations, not stated as uncontrolled Encounter for long-term (current) use of medications Encounter for long-term (current) use of other medications Colon cancer screening Special screening for malignant neoplasms, colon Type 2 diabetes mellitus with hyperglycemia, without long-term current use of insulin (CMS/HCC)- Primary Benign hypertension (CMS/HCC) Essential hypertension, benign Major depressive disorder, recurrent episode, mild (HCC) (CMS/HCC) Major depressive disorder, recurrent episode, mild Type 2 diabetes mellitus with polyneuropathy (CMS/HCC) Type II or unspecified type diabetes mellitus with neurological manifestations, not stated as uncontrolled 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 (CMS/HCC) Dermatophytosis of nail- Primary Dystrophic nail Other specified disease of nail Pain around toenail, right foot Pain around toenail, left foot documented in this encounter [facility] Summary Purpose Family History No Family History [...] section and content) DATE CREATED AUTHOR 10/06/2017 [facility] DATE CREATED AUTHOR AUTHOR'S ORGANIZ ATION [facility]/01/2022 [facility] DATE CREATED AUTHOR AUTHOR'S ORGANIZ ATION 05/29/2023 [facility] DATE CREATED AUTHOR AUTHOR'S ORGANIZ ATION 07/17/2023 [facility] DATE CREATED AUTHOR AUTHOR'S ORGANIZ ATION 12/12/2023 [facility] DATE CREATED AUTHOR AUTHOR'S ORGANIZ ATION 05/25/2024 [facility] [employer] Care Teams (unrecognized sec tion and content) [employer] As[employer]er Relationship Specialty Start Date End Date Kenny Horton MD [address] [place] [phone] PCP - General Family Medicine 06/28/23 [employer] Relationship Specialty Start Date End Date Kenny Horton MD [address] [place] [phone] PCP - General Family Medicine 06/28/23 [employer] As[employer]er Relationship Specialty Start Date End Date Kenny Horton MD [address] [place] [phone] PCP - General Family Medicine 06/28/23 [employer] As[employer]er Relationship Specialty Start Date End Date Kenny Horton MD [address] [place] [phone] PCP - General Family Medicine 06/28/23 [employer] As[employer]er Relationship Specialty Start Date End Date Kenny Horton MD [address] [place] [phone] PCP - General Family Medicine 06/28/23 [employer] As[employer]er Relationship Specialty Start Date End Date Kenny Horton MD [address] [place] [phone] PCP - General Family Medicine 06/28/23 [employer] As[employer]er Relationship Specialty Start Date End Date Kenny Horton MD [address] [place] [phone] PCP - General Family Medicine 06/28/23 Printed Products Assembler Relationship Specialty Start Date End Date Kenny Horton MD [address] [place] [address] PCP - General Family Medicine 06/28/23 Reason for Visit (unrecogniz ed section and content) Reason Comments DM Foot Care Pt presents today wi th his requesting diabetic foot care.BS: 148 A1C: 6.4Lv Dr. Horton 12-04-2023SS: 9.5W Reason Comments Follow-up 3 m Reason Comments Nail care Kj Barros is a 73 y.o. male, Pt presents today with his requesting diabetic foot care./BS: 179 A1C: 6.4/Lv Dr. Horton 03/05/2024 SS: 9.5W FOR RECORDS PERTAINING TO PATIENTS WHO ARE [...] BE BASED ON THE PRIMARY CLINICAL RECORDS. [facility] [employer] [facility]. provides no warranty or guarantee of the accuracy or completeness of information in this document.
[2024-06-05 10:46] LABS: Basophils Absolute Auto 0.1 10^3/uL (0.0-0.1); Basophils Percent Auto 0.9 % (0.2-2.0); Eosinophils Absolute Auto 0.3 10^3/uL (0.0-0.7); Eosinophils Percent Auto 3.2 % (0.9-7.0); Hematocrit 47.9 % (42.0-54.0); Hemoglobin 16.9 g/dL (14.0-18.0); Immature Granulocytes Abs Auto 0.08 10^3/uL (0.00-0.03); Lymphocytes Absolute Auto 2.3 10^3/uL (1.2-3.8); Lymphocytes Percent Auto 28.4 % (20.5-60.0); Mean Corpuscular HGB Conc 35.3 g/dL (29.9-35.2); Mean Corpuscular Hemoglobin 33.2 pg (25.9-34.0); Mean Corpuscular Volume 94.1 fL (80.0-94.0); Mean Platelet Volume 10.7 fL (9.5-13.5); Monocytes Absolute Auto 0.7 10^3/uL (0.3-0.8); Monocytes Percent Auto 9.1 % (1.7-12.0); Neutrophils Absolute Auto 4.6 10^3/uL (1.4-6.5); Neutrophils Percent Auto 57.4 % (43.0-75.0); Platelet Count 117 10^3/uL (150-450); Red Blood Count 5.09 10^6/uL (4.70-6.10); Red Cell Distribution Width 12.3 % (11.0-15.0)
[2024-06-05 11:24] LABS: Alanine Aminotransferase 25 U/L (16-63); Anion Gap 15.2; Aspartate Amino Transferase 19 U/L (15-37); BUN Creatinine Ratio 16.8; Bilirubin Direct 0.2 mg/dL (0.0-0.2); Bilirubin Total 0.9 mg/dL (0.2-1.0); Calcium 10.3 mg/dL (8.5-10.1); Chloride 105 mmol/L (98-107); Estimated GFR (African America >60 (>=60 mL/min/1.73m^2); Estimated GFR (Non-African Ame >60 (>=60 mL/min/1.73m^2); Glucose 155 mg/dL (74-106); Potassium 4.2 mmol/L (3.5-5.1); Sodium 138 mmol/L (136-145)
[2024-06-05 11:25] LABS: Albumin Globulin Ratio 1.1; Albumin Level 3.6 g/dL (3.4-5.0); Alkaline Phosphatase 106 U/L (46-116); Chol HDL Ratio 2.1; Cholesterol 114 mg/dL (<=200); Globulin 3.3 g/dL; HDL Cholesterol 54 mg/dL (40-60); Total Protein 6.9 g/dL (6.4-8.2); Triglycerides 60 mg/dL (<=150)
[2024-06-05 11:31] LABS: Estimated Average Glucose 180 mg/dL; Glycohemoglobin A1C 7.9 % (4.5-6.2)
[2024-06-05 11:55] LABS: Prostate Specific Antigen Scrn 4.18 ng/mL (<=4.00)
== END 2024-06-05 10:21 | disposition home or self-care (01) ==
LOC: LAB 10:20
PROVIDERS: PCP Family Medicine; Visit Provider Family Medicine
DX: E78.5 Hyperlipidemia, unspecified (principal); Z12.5 Encounter for screening for malignant neoplasm of prostate; E11.65 Type 2 diabetes mellitus with hyperglycemia; Z79.899 Other long term (current) drug therapy
CPT/HCPCS: 36415; 80048; 80061; 80076; 83036; 85025; G0103

== ENCOUNTER 2024-10-29 13:41 | Outpatient (OUT) | payer MEDICARE, SELFPAY ==
--- OUTSIDE RECORDS SUMMARY | 2024-10-28 15:15 | XMS_ITS | Encounter Summary ---
Author Organization [facility] Healthcare Address [address] [place] [address] Care Team Providers Care Senior Python Developer Name Role Phone Kenny Brown MD Primary Care Provider [phone] Reason for Visit * Reason Comments Toenail Care Established patient presents today for nail care and callus care. Encounter Details Date Type Department Care Team (Latest Contact Info) Description 10/28/2024 3:15 PM EDT Procedure Visit [facility] [address] [place] [phone] Sigifredo Brunner, DPM [address] [place], [place] [phone] Dermatophytosis of nail (Primary Dx); Dystrophic nail; Pain around toenail, right foot; Pain around toenail, left foot Social History Tobacco Use Types Packs/Day Years Used Date Smoking Tobacco: Every Day Cigarettes Smokeless Tobacco: Never Tobacco Cessation:Ready to Q uit: Not Asked; Counseling Given: Not Answered Comments:Start smoking at age 7 Alcohol Use Standard Drinks/Week Comments Never 0 (1 standard drink = 0.6 oz pure alcohol) Caffeine intake: 3-4 cups per day Sex and Gender Information Value Date Recorded Sex Assigned at Not on file Legal Sex Male 6:36 PM EDT Gender Identity Not on file Sexual Orientation Not on file documented as of this encounter Last Filed Vital Signs Vital Sign Reading Time Taken Comments Blood Pressure - - Pulse - - Temperature - - Respiratory Rate - - Oxygen Saturation - - Inhaled Oxygen Concentration - - Weight 81.2 kg (179 lb) 10/28/2024 3:04 PM EDT Height 170.2 cm (5' 7 ) 10/28/2024 3:04 PM EDT Body Mass Index 28.04 10/28/2024 3:04 PM EDT documented in this encounter Patient Instructions * Patient Instructions* Sigifredo Brunner DPM - 10/28/2024 3:15 PM EDT As noted documented in this encounter Progress Notes * Sigifredo Brunner DPM - 10/28/2024 3:15 PM EDT Images from the original note were not included. Subjective Patient ID: Kj Barros is a 74 y.o. male who presents for Toenail Care (Established patient presents today for nail care and callus care. ). HPI HPI Onychomycosis/Toenail Fungus: Presents requesting nail [...] type II diabetes. Aspirin therapy. Visual impairment. Long- standing cigarette smoking by history. Mobility and flexibility restraints. Aggravated by: shoe gear , pressure , walking; catching and snagging on clothing etc.. Medications Current Outpatient Medications: buffered aspirin (Bufferin Low Dose) 81 MG tablet, , Disp: , Rfl: cholecalciferol (Vitamin D-3) 50 MCG (1999 UT) capsule, Take 2,000 Units by mouth Daily, Disp: , Rfl: Glucose Blood (PRODIGY BLOOD GLUCOSE TEST ), , Disp: , Rfl: metFORMIN (Glucophage) 500 MG tablet, Take 1 tablet (500 mg) by mouth in the morning and 1 tablet (500 mg) in the evening. Take with meals., Disp: 60 tablet, Rfl: 5 rosuvastatin (Crestor) 20 MG tablet, Take 1 [...] disease Father Objective General Examination: GENERAL EXAMINATION: Alert and oriented. Pleasant disposition. Wearing Skechers footwear. His spouse, Leydi is present. FOOT EXAM: Date of Last Foot Exam 10/28/2024 Sensory testing performed: sensations normal Sensory and [...] onychodystrophy/mycosis all digits. Stable tyloma lesion sub-5 bilateral. Type II diabetes. Chronic, stable PAD. Plan: [...] Sigifredo Brunner DPM documented in this encounter Plan of Treatment Upcoming Encounters Date Type Department Care Team (Late st Contact Info) Description 12/05/2024 2:00 PM EDT [facility] [address] [place] [address] Kenny Brown MD [address] [place] [address] 02/17/2025 3:15 PM EST Procedure Visit [facility] [address] [place] [address] Sigifredo Brunner DPM [address] [place] [id number] documented as of this encounter Visit Diagnoses Diagnosis Dermatophytosis of nail- Primary Dystrophic nail Other specified disease of nail Pain around toenail, right foot Pain around toenail, left foot documented in this encounter Care Teams Senior Python Developer Relationship Specialty Start Date End Date Kenny Brown MD [address] [place] [phone] PCP - General Family Medicine 06/28/23 documented as of this encounter
--- OUTSIDE RECORDS SUMMARY | 2024-10-29 13:44 | XMS_ITS | Encounter Summary ---
Author Organization [facility] Address [address] [place] [address] Care Team Providers Care Casting Room Helper Name Role Phone Kenny Brown MD Primary Care Provider [phone] Encounter Details Date Type Department Care Team ([facility] Contact Info) Description 08/23/2023 Abstract [facility] [address] [place] [phone] Ekaterina Cazares MD [address] [facility] [address] [place], [place] [phone] Social History Tobacco Use Types Packs/Day Years Used Date Smoking Tobacco: Every Day Cigarettes Smokeless Tobacco: Never Comments:Start smoking at ag e 7 Alcohol Use Standard Drinks/Week Comments Never 0 (1 standard drink = 0.6 oz pure alcohol) Caffeine intake: 3-4 cups per day Sex and Gender Information Value Date Recorded Sex Assigned at Not on file Legal Sex Male 6:36 PM EDT Gender Identity Not on file Sexual Orientation Not on file documented as of this encounter Plan of Treatment Upcoming Encounters Date Type Department Care Team ([facility] Contact Info) Description 12/05/2024 2:00 PM EDT Office Visit [facility] [address] [place] [address] Kenyn Brown MD [address] [place] [address] 02/17/2025 3:15 PM EST Procedure Visit [facility] [address] [place] [address] Sigifredo Brunner, DPM [address] [place], [place] [phone] documented as of this encounter Visit Diagnoses Not on filedocumented in this encounter Care Teams Casting Room Helper Relationship Specialty Start Date End Date Kenny Brown MD [address] [place] [address] PCP - General Family Medicine 06/28/23 documented as of this encounter
--- OUTSIDE RECORDS SUMMARY | 2024-10-29 13:44 | XMS_ITS | Encounter Summary ---
Author Organization [facility] Address [address] [place] [address] Care Team Providers Care Administrator Pesticide Name Role Phone Kenny Brown MD Primary Care Provider [phone] Kenny Brown MD Primary Care Provider [phone] Encounter Details Date Type Department Care Team (Late Contact Info) Description 11/24/2022 Abstract [facility] [address] [place] [phone] Sigifredo Brunner DPM [address] [place], [place] [phone] Social History Tobacco Use Types Packs/Day Years Used Date Smoking Tobacco: Every Day Cigarettes Smokeless Tobacco: Never Tobacco Cessation:Ready to Q uit: No; Counseling Given: Not Answered Alcohol Use Standard Drinks/Week Comments Never 0 [...] Encounters Date Type Department Care Team (Late Contact Info) Description 12/05/2024 2:00 PM EDT Office Visit [facility] [address] [place] [address] Kenny Brown MD [address] [place] [phone] 02/17/2025 3:15 PM EST Procedure Visit [facility] [address] [facility] [place] [address] Sigifredo Brunner DPM [address] [place], [place] [address] documented as of this encounter Visit Diagnoses Not on filedocumented in this encounter Care Teams Administrator Pesticide Relationship Specialty Start Date End Date Kenny Brown MD PCP - General Family Medicine 11/09/22 06/27/23 Kenny Brown MD [address] [place] [address] PCP - General Family Medicine 06/28/23 documented as of this encounter
--- OUTSIDE RECORDS SUMMARY | 2024-10-29 13:44 | XMS_ITS | Encounter Summary ---
Author Organization [facility] Address [address] [place] [address] Care Team Providers Care Measurement Operator Name Role Phone Kenny Brown MD Primary Care Provider [phone] Kenny Brown MD Primary Care Provider [phone] Encounter Details Date Type Department Care Team (Late Contact Info) Description 05/04/2023 Orders Only [facility] [address] [place] [address] Kenny Brown MD [address] [place] [address] Social History Tobacco Use Types Packs/Day Years [...] 12/05/2024 2:00 PM EDT Office Visit [facility] [address] [place] [address] Kenny Brown MD [address] [place] [address] 02/17/2025 3:15 PM EST Procedure Visit [facility] [address] [facility] [address] Sigifredo Brunner DPM [address] [place] [address] documented as of this encounter Procedures Procedure Name Priority Date/Time Associated Diagnosis Comments STRESS CARDIAC STRESS/LEXISCAN Routine 05/02/2023 2:22 PM EST documented in this encounter Results * STRESS CARDIAC STRESS/LEXISCAN (05/02/2023 2:22 PM EST) Anatomical Region Laterality Modality Radiographic Minerva ging Kenny Brown MD IMG XR PROCEDURES Final Result documented in this encounter Visit Diagnoses Not on filedocumented in this encounter Care Teams Measurement Operator Relationship Specialty Start Date End Date Kenny Brown MD PCP - General Family Medicine 11/09/22 06/27/23 Kenny Brown MD [address] [place] [address] PCP - General Family Medicine 06/28/23 documented as of this encounter
--- OUTSIDE RECORDS SUMMARY | 2024-10-29 13:44 | XMS_ITS | Encounter Summary ---
Author Organization [facility] Address [address] [place] [address] Care Team Providers Care Brand Marketing Specialist Name Role Phone Terrance Horton MD Primary Care Provider [phone] Terrance Horton MD Primary Care Provider [phone] Encounter Details Date Type Department Care Team (Late Contact Info) Description 05/03/2023 Clinisync Result Encounter [facility] External Department Unsolicited Terrance Horton MD [address] [place] [address] Social History Tobacco Use Types [...] 12/05/2024 2:00 PM EDT Office Visit [facility] [address] [place] [address] Terrance Horton MD [address] [place] [address] 02/17/2025 3:15 PM EST Procedure Visit [facility] [address] [place] [address] Sigifredo Brunner, DPRodolfo [address] [place], [place] [address] documented as of this encounter Procedures Procedure Name Priority Date/Time Associated Diagnosis Comments NM BRANDO PERF SPECT REST STR 05/03/2023 7:57 AM EST documented in this encounter Results * NM BRANDO PERF SPECT REST STR (05/03/2023 7:57 AM EST) Anatomical Region Laterality Modality Other 05/03/2023 7:57 AM EST Narrative 05/03/2023 7:57 AM EST [address] [address] Nuclear Medicine Report Signed Patient: JAMES POPE MR#: [id number] : 1950 Acct:[id number] Age/Sex: 72 / M ADM Date: 05/02/23 Loc: NM Attending Dr: Terrance Horton M.D. Ordering Physician: Terrance Horton M.D. Date of Service: 05/02/23 Procedure(s): NM brando perf SPECT rest str Accession Number(s): [id number] cc: Terrance Horton M.D. Patient Name: JAMES POPE MR#: [id number] : 1950 Exam Date: 05/02/2023 Ordering Doctor: DR TERRANCE HORTON . RADIOLOGY REPORT PROCEDURE: NM BRANDO PERF SPECT REST STR COMPARISON: None. INDICATIONS: FATIGUE, SOB WITH EXERTION, CAD AND PRIOR CABG TECHNIQUE: Exam Description: Stress/Rest one day protocol gated SPECT Rest Imagin.5 mCi Tc-99m Cardiolite IV on 05/02/2023 Stress Imaging 31.2 mCi Tc-99m Cardiolite IV on 05/02/2023 Exercise Protocol: 0.4 mg Lexiscan given IV Heart Rate (bpm): Rest: 55 Max: 74 PMHR: 50 Blood Pressure: Rest: 118/76 Max: 164/80 Symptoms: Rest and peak stress ECG findings were abnormal and the exercise portion of the study was Equivocal per attending physician Dr. Cabello due to EKG changes. For more details please see separate cardiac stress test report. FINDINGS: QUALITY OF STUDY: Good. PERFUSION DEFECT: LOCATION: Basal inferior. Mid-inferior. Apical inferior. [place]. SIZE: Medium (3-4 segments). SEVERITY: Moderate. TYPE: Persistent. WALL MOTION: Mild hypokinesis: LV SIZE: Enlarged; EDV 121 mL. TID / TCD: None; 1.0 LVEF: Abnormal. Calculated EF 49%. SUMMARY: Myocardial perfusion imaging study has ABNORMAL findings. CONCLUSION: 1. Moderate to large size moderate severity transmural defect in the inferior wall extending the apex primarily RCA distribution. No reversible ischemia is identified 2. Dilated left ventricle, end-diastolic volume 121 milliliters 3. Low left ventricular ejection fraction 49% 4. Abnormal exercise test due to EKG changes Dictated by: Laurent Littlejohn MD on 05/03/2023 at 07:54 Approved by: Laurent Littlejohn MD on 05/03/2023 at 07:56 Dictated By: Laurent Littlejohn M.D. Signed By: 05/03/23 0757 DD/ 0757 TD/TT: Primary Products Inspectors: Procedure Note Radiology, Radiologist, - 05/03/2023 [place] [address] Nuclear Medicine Report Signed Patient: JAMES POPE LMR#: [id number] : 9Acct:[id number] Age/Sex: 72 / MADM Date: 05/02/23 Loc: NM Attending Dr: Terrance Horton M.D. Ordering Physician: Terrance Horton M.D. Date of Service: 05/02/23 Procedure(s): NM brando perf SPECT rest str Accession Number(s): [id number] cc: Terrance Horton M.D. Patient Name: JAMES POPE MR#: [id number] : 1950 Exam Date: 05/02/2023 Ordering Doctor: DR TERRANCE HORTON . RADIOLOGY REPORT PROCEDURE: NM BRANDO PERF SPECT REST STR COMPARISON: None. INDICATIONS: FATIGUE, SOB WITH EXERTION, CAD AND PRIOR CABG TECHNIQUE: Exam Description: Stress/Rest one day protocol gated SPECT Rest Imagin.5 mCi Tc-99m Cardiolite IV on 05/02/2023 Stress Imaging 31.2 mCi Tc-99m Cardiolite IV on 05/02/2023 Exercise Protocol: 0.4 mg Lexiscan given IV Heart Rate (bpm): Rest: 55 Max: 74 PMHR: 50 Blood Pressure: Rest: 118/76 Max: 164/80 Symptoms: Rest and peak stress ECG findings were abnormal and the exercise portionof the study was Equivocal per attending physician Dr. Cabello due to EKGchanges. For more details please see separate cardiac stress test report. FINDINGS: QUALITY OF STUDY: Good. PERFUSION DEFECT: LOCATION: Basal inferior. Mid-inferior. Apical inferior. [place]. SIZE: Medium (3-4 segments). SEVERITY: Moderate. TYPE: Persistent. WALL MOTION: Mild hypokinesis: LV SIZE: Enlarged; EDV 121 mL. TID / TCD: None; 1.0 LVEF: Abnormal. Calculated EF 49%. SUMMARY: Myocardial perfusion imaging study has ABNORMAL findings. CONCLUSION: 1. Moderate to large size moderate severity transmural defect in theinferior wall extending the apex primarily RCA distribution. No reversibleischemia is identified 2. Dilated left ventricle, end-diastolic volume 121 milliliters 3. Low left ventricular ejection fraction 49% 4. Abnormal exercise test due to EKG changes Dictated by: Laurent Littlejohn MD on 05/03/2023 at 07:54 Approved by: Laurent Littlejohn MD on 05/03/2023 at 07:56 Dictated By: Laurent Littlejohn M.D. Signed By:05/03/23 0757 DD/ 0757 TD/TT: Primary Products Inspectors: us Terrance Horton MD [facility] Final Result documented in this encounter Visit Diagnoses Not on filedocumented in this encounter Care Teams Brand Marketing Specialist Relationship Specialty Start Date End Date Terrance Horton MD PCP - General Family Medicine 11/09/22 06/27/23 Terrance Horton MD [address] [place] [address] PCP - General Family Medicine 06/28/23 documented as of this encounter
--- OUTSIDE RECORDS SUMMARY | 2024-10-29 13:44 | XMS_ITS | Encounter Summary ---
Author Organization [facility] Address [address] [facility] [place] [address] Care Team Providers Care Buffing Machine Operator Semiautomatic Name Role Phone Kenny Brown MD Primary Care Provider [phone] Encounter Details Date Type Department Care Team (Late Contact Info) Description 08/08/2023 Orders Only [facility] [address] [place] [address] Collins Diane MD [address] [place], [place] [phone] Social History Tobacco Use Types Packs/Day Years [...] Office Visit [facility] [address] [place] [address] Kenny Brown MD [address] [place] [address] 02/17/2025 3:15 PM EST Procedure Visit [facility] [address] [place] [address] Sigifredo Brunner, DPM [address] [place] [address] documented as of this encounter Procedures Procedure Name Priority Date/Time Associated Diagnosis Comments US VENOUS DUPLEX RIGHT UPPER Routine 4:04 PM EDT ELECTROCARDIOGRAM REPORT Routine 024 2:03 PM EDT XR KNEE TEMITOPE 1_2 V Routine 08/06/2023 12: 49 PM EDT XR CHEST 1 VIEW Routine 08/06/2023 12:47 PM EDT XR HIP 2-3 VIEWS LEFT Routine 08/06/2023 12:45 PM EDT documented in this encounter Results * US VENOUS DUPLEX RIGHT UPPER (08/06/2023 4:04 PM EDT) Anatomical Region Laterality Modality Radiographic Minerva ging Kenny Brown MD IMG XR PROCEDURES Final Result * Electrocardiogram Report (08/06/2023 2:03 PM EDT) Kenny Brown MD IN CLINIC/BEDSIDE ORDERABLES Fin al Result * XR KNEE TEMITOPE 1_2 V (08/06/2023 12:49 PM EDT) Anatomical Region Laterality Modality Radiographic Minerva ging Collins Diane MD IMG XR PROCEDURES Final Resul t * XR chest 1 view (08/06/2023 12:47 PM EDT) Anatomical Region Laterality Modality Chest Radiographic Minerva ging Collins Diane MD IMG XR PROCEDURES Final Resul t * XR HIP 2-3 VIEWS LEFT (08/06/2023 12:45 PM EDT) Anatomical Region Laterality Modality Radiographic Minerva ging Collnis Diane MD IMG XR PROCEDURES Final Resul t documented in this encounter Visit Diagnoses Not on filedocumented in this encounter Care Teams Buffing Machine Operator Semiautomatic Relationship Specialty Start Date End Date Kenny Brown MD [address] [place] [address] PCP - General Family Medicine 06/28/23 documented as of this encounter
--- OUTSIDE RECORDS SUMMARY | 2024-10-29 13:46 | XMS_ITS | Encounter Summary ---
Author Organization [facility] Address [address] [facility] [place] [address] Care Team Providers Care Detective Lieutenant Name Role Phone Kenny Brown MD Primary Care Provider [phone] Encounter Details Date Type Department Care Team (Late Contact Info) Description 08/03/2023 Orders Only [facility] [address] [place] [address] Shaikh Godinez MD [address] [place] [address] Social History Tobacco Use Types Packs/Day Years [...] Office Visit [facility] [address] [place] [address] Kenny Brown MD [address] [place] [address] 02/17/2025 3:15 PM EST Procedure Visit [facility] [address] [place] [address] Sigifredo Brunner DPM [address] [place] [address] documented as of this encounter Procedures Procedure Name Priority Date/Time Associated Diagnosis Comments XR CHEST 1 VIEW Routine 08/02/2023 10:31 AM EDT documented in this encounter Results * XR chest 1 view (08/02/2023 10:31 AM EDT) Anatomical Region Laterality Modality Chest Radiographic Minerva ging us Shaikh Herbert JEFFERS IMG XR PROCEDURES Final Result documented in this encounter Visit Diagnoses Not on filedocumented in this encounter Care Teams Detective Lieutenant Relationship Specialty Start Date End Date Kenny Brown MD [address] [place] [address] PCP - General Family Medicine 06/28/23 documented as of this encounter
--- OUTSIDE RECORDS SUMMARY | 2024-10-29 13:46 | XMS_ITS | Clinical Summary ---
Author Organization [facility] Address [address] [place] [address] Care Team Providers Care Geospatial Technologist Name Role Phone Kenny Brown MD Primary Care Provider [phone] Allergies Active Allergy Reactions Criticality Noted Date Comments Bee Venom Unknown 11/24/2022 Medications buffered aspirin (Bufferin Low Dose) 81 MG tablet Active Glucose Blood (edoIGY BLOOD GLUCOSE TEST ) Act elvia cholecalciferol (Vitamin D-3) 50 MCG (1999) capsule Take 2,000 Units by mouth Daily Active sodium chloride 1 g tabletIndications:H yponatremia Take 1 tablet (1 g) by mouth in the morning and 1 tablet (1 g) before bedtime. 60 tablet 5 4 Active rosuvastatin (Crestor) 20 MG tabletIndications:D yslipidemia Take 1 tablet (20 mg) by mouth Daily 30 tablet 11 4 03/22/20 25 Active metFORMIN (Glucophage) 500 MG tabletIndications:T ype 2 diabetes mellitus with polyneuropathy (HCC) Take 1 tablet (500 mg) by mouth in the morning and 1 tablet (500 mg) in the evening. Take with meals. 60 tablet 5 5 Active Active Problems Problem Noted Date Diagnosed Date COPD (chronic obstructive pulmonary disease) Assessment & Plan (06/06/2024 2:10 PM EST): Check PFTs. Stressed need to stop smoking. Hyponatremia 06/28/2023 Assessment & Plan (10/03/2023 12:15 PM EDT): Labs improved and continue supplement. Benign hypertension 04/24/2023 Assessment & Plan (06/06/2024 2:09 PM EST): BP elevated today but reports normal at home and monitor PRN. Assessment & Plan (03/05/2024 4:27 PM EST): BP normal and monitor PRN. Assessment & Plan (12/04/2023 2:38 PM EDT): BP normal and monitor PRN. Assessment & Plan (10/03/2023 12:15 PM EDT): BP normal and monitor PRN. Assessment & Plan (09/06/2023 11:42 AM EDT): BP controlled and monitor PRN. Assessment & Plan (06/28/2023 10:37 AM EDT): BP controlled and monitor PRN. Assessment & Plan (04/24/2023 2:25 PM EST): BP controlled and monitor PRN. Coronary atherosclerosis of [place] coronary shahzad ry 04/24/2023 DDD (degenerative disc disease), lumbar 04/24/19 24 Dyslipidemia 04/24/2023 Persistent disorder of initiating or maintaining sleep 04/24/2023 Major depressive disorder, recurrent episode, mi ld 04/24/2023 Assessment & Plan (06/06/2024 2:10 PM EST): Doing well without medication and monitor. Assessment & Plan (03/05/2024 4:27 PM EST): Doing well without medication and monitor. Assessment & Plan (12/04/2023 2:38 PM EDT): Doing well without medication and monitor. Assessment & Plan (09/06/2023 11:42 AM EDT): Doing well without medication and monitor. Assessment & Plan (04/24/2023 2:26 PM EST): Continued symptoms and discussed options. Patient does not want to adjust medication and monitor. 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 Assessment & Plan (03/05/2024 4:27 PM EST): Symptoms mild and monitor. Assessment & Plan (12/04/2023 2:38 PM EDT): Symptoms mild and monitor. Assessment & Plan (10/03/2023 12:15 PM EDT): Symptoms much improved and mild. Monitor. Assessment & Plan (09/06/2023 11:43 AM EDT): Symptoms much improved and mild. Monitor. Assessment & Plan (06/28/2023 10:36 AM EDT): Continued hallucinations and behavior changes. Stop abilify and try seroquel. Assessment & Plan (04/24/2023 2:27 PM EST): Continued forgetfulness and occasional hallucinations but declined adjusting medication. Monitor. Type 2 diabetes mellitus with polyneuropathy 11/2023 Assessment & Plan (06/06/2024 2:10 PM EST): Occasional symptoms but mild and monitor. Assessment & Plan (03/05/2024 4:26 PM EST): Occasional symptoms but mild and monitor. Assessment & Plan (12/04/2023 2:39 PM EDT): Occasional symptoms but mild and monitor. Encounter for long-term (current) use of medicat ions 04/24/2023 Screening PSA (prostate specific antigen) 2023 History of coronary artery bypass graft 04/24/19 24 Type 2 diabetes mellitus wit h hyperglycemia, without long-term current use of insulin 11/24/2022 Assessment & Plan (06/06/2024 2:10 PM EST): Reports BS stable and last A1C 7.9. Stick to ADA diet and limit carbs. Assessment & Plan (03/05/2024 4:27 PM EST): Reports BS controlled and last A1C 6.4. Stick to ADA diet and limit carbs. Assessment & Plan (12/04/2023 2:38 PM EDT): Reports BS okay and due for labs. Stick to ADA diet and limit carbs. Assessment & Plan (10/03/2023 12:16 PM EDT): Reports BS okay and review labs. Stick to ADA diet and limit carbs. Assessment & Plan (09/06/2023 11:44 AM EDT): Reports BS okay and review labs. Stick to ADA diet and limit carbs. Assessment & Plan (04/24/2023 2:27 PM EST): Reports BS okay and due for A1C. Stick to ADA diet and limit carbs. Resolved Problems Problem Noted Date Diagnosed Date Resolved Date Transient alteration of awareness 06/28/2023 12/04/2023 Assessment & Plan (06/28/2023 10:35 AM EDT): Frequent confusion and hallucinations of unclear etiology. Check labs due to recent metabolic encephalopathy. Metabolic encephalopathy 06/28/2023 Assessment & Plan (09/06/2023 11:43 AM EDT): Hallucinations resolved and mental status much improved after stopping crestor. Monitor. Assessment & Plan (06/28/2023 10:36 AM EDT): Frequent confusion and hallucinations of unclear etiology. Check labs due to recent metabolic encephalopathy. Visual hallucinations 06/28/20232023 Assessment & Plan (06/28/2023 10:35 AM EDT): Frequent confusion and hallucinations of unclear etiology. Check labs due to recent metabolic encephalopathy. Other fatigue 04/24/2023 06/06/2024 Assessment & Plan (04/24/2023 2:26 PM EST): Severe fatigue and history of CAD with CABG. Check stress test. Encounters Date Type Department Care Team Description 10/28/2024 3:15 PM EDT Procedure Visit [facility] [address] [place] [address] Sigifredo Brunner, CLAYTON Dermatophytosis of nail (Primary Dx); Dystrophic nail; Pain around toenail, right foot; Pain around toenail, left foot 10/28/2024 Bamboo flowsheet [facility] [address] [place] [address] Sigifredo Brunner DPM 10/28/2024 Travel 09/30/2024 Telephone [facility] [address] [place] [address] Sigifredo Brunner DPM Advice Only ( POD No Shows) 08/16/2024 Travel from Last 3 Months Family History Medical History Relation Name Comments Coronary artery disease Father Diabetes Father Stroke Father Diabetes Mother Hepatitis Mother Relation Name Status Comments Father Mother Social History Tobacco Use Types Packs/Day Years [...] on file Sexual Orientation Not on file Last Filed Vital Signs Vital Sign Reading Time Taken Comments Blood Pressure 154/62 06/06/2024 1:33 PM EST Pulse 67 06/06/2024 1:33 PM EST Temperature 36.8 C (98.2 F) 06/06/2024 1:33 PM EST Respiratory Rate 20 06/06/2024 1:33 PM EST Oxygen Saturation 97% 06/06/2024 1:33 PM EST Inhaled Oxygen Concentration - - Weight 81.2 kg (179 lb) 10/28/2024 3:04 PM EDT Height 170.2 cm (5' 7 ) 10/28/2024 3:04 PM EDT Body Mass Index 28.04 10/28/2024 3:04 PM EDT Plan of Treatment Upcoming Encounters Date Type Department Care Team (Late st Contact Info) Description 12/05/2024 2:00 PM EDT Office Visit [facility] [address] [place] [phone] Kenny Brown MD [address] [place] [address] 02/17/2025 3:15 PM EST Procedure Visit [facility] [address] [place] [address] Sigifredo Brunner DPM [address] [place], [place] [phone] Health Maintenance Due Date Last Done Comments Pneumococcal Vaccine: 65+ Ye ars (1 of 2 - PCV) 1967 Diabetes: Hemoglobin A1C 12/03/2024 06/05/2024, 11/16 Diabetes: Urine Protein Screening 12/10/2024 024 Influenza Vaccine (#1) 2024 Diabetes: Retinopathy Screening 02/20/2025 3 Insurance [facility] MEDICARE ADVANTAGE Care Teams Geospatial Technologist Relationship Specialty Start Date End Date Kenny Brown MD [address] [place] [address] PCP - General Family Medicine 06/28/23
--- OUTSIDE RECORDS SUMMARY | 2024-10-29 13:46 | XMS_ITS | Encounter Summary ---
Author Organization [facility] Address [address] [facility] [place] [address] Care Team Providers Care Obstetrician And Gynaecologist Name Role Phone Kenny Brown MD Primary Care Provider [phone] Encounter Details Date Type Department Care Team (Late Contact Info) Description 09/19/2023 Orders Only [facility] [address] [place] [address] Kenny Brown MD [address] [place] [address] Social History Tobacco Use Types Packs/Day Years [...] Office Visit [facility] [address] [place] [address] Kenny Brown MD [address] [place] [address] 02/17/2025 3:15 PM EST Procedure Visit [facility] [address] [facility] [place] [address] Sigifredo Brunner DPM [address] [place] [address] documented as of this encounter Procedures Procedure Name Priority Date/Time Associated Diagnosis Comments ELECTROCARDIOGRAM REPORT Routine 024 9:41 AM EDT XR CHEST 1 VIEW Routine 09/18/2023 9:33 AM EDT documented in this encounter Results * Electrocardiogram Report (09/18/2023 9:41 AM EDT) us Kenny Brown MD IN CLINIC/BEDSIDE ORDERABLES Fin al Result * XR chest 1 view (09/18/2023 9:33 AM EDT) Anatomical Region Laterality Modality Chest Radiographic Minerva ging us Kenny Brown MD IMG XR PROCEDURES Final Result documented in this encounter Visit Diagnoses Not on filedocumented in this encounter Care Teams Obstetrician And Gynaecologist Relationship Specialty Start Date End Date Kenny Brown MD [address] [place] [address] PCP - General Family Medicine 06/28/23 documented as of this encounter
--- OUTSIDE RECORDS SUMMARY | 2024-10-29 13:46 | XMS_ITS | Encounter Summary ---
Author Organization [facility] Address [address] [place] [address] Care Team Providers Care Citizenship Instructor Name Role Phone Kenny Brown MD Primary Care Provider [phone] Kenny Brown MD Primary Care Provider [phone] Encounter Details Date Type Department Care Team (Late Contact Info) Description 05/23/2023 Orders Only [facility] [address] [place] [address] Scotty Carr MD [address] [place] [address] Social History Tobacco Use Types Packs/Day Years [...] 12/05/2024 2:00 PM EDT Office Visit [facility] [address] [place] [address] Kenny Brown MD [address] [place] [address] 02/17/2025 3:15 PM EST Procedure Visit [facility] [address] [facility] [place] [address] Sigifredo Brunner DPM [address] [place] [address] documented as of this encounter Procedures Procedure Name Priority Date/Time Associated Diagnosis Comments ECHOCARDIOGRAM WITH DOPPLER IF INDICATED Routine 05/23/2023 4:42 PM EST documented in this encounter Results * ECHOCARDIOGRAM WITH DOPPLER IF INDICATED (05/23/2023 4:42 PM EST) Anatomical Region Laterality Modality Radiographic Minerva ging us Scotty Carr MD IMG XR PROCEDURES Final Result documented in this encounter Visit Diagnoses Not on filedocumented in this encounter Care Teams Citizenship Instructor Relationship Specialty Start Date End Date Kenny Brown MD PCP - General Family Medicine 11/09/22 06/27/23 Kenny Brown MD [address] [place] [address] PCP - General Family Medicine 06/28/23 documented as of this encounter
--- OUTSIDE RECORDS SUMMARY | 2024-10-29 13:46 | XMS_ITS | Encounter Summary ---
Author Organization [facility] Address [address] [place] [address] Care Team Providers Care Systems Auditor Name Role Phone Kenny Brown MD Primary Care Provider [phone] Kenny Brown MD Primary Care Provider [phone] Encounter Details Date Type Department Care Team (Late Contact Info) Description 05/24/2023 Orders Only [facility] [address] [place] [address] Collins Diane MD [address] [place], [place] [phone] Social History Tobacco Use Types Packs/Day Years [...] 12/05/2024 2:00 PM EDT Office Visit [facility] [address] [place] [address] Kenny Brown MD [address] [place] [address] 02/17/2025 3:15 PM EST Procedure Visit [facility] [address] [facility] [place] [address] Sigifredo Brunner DPM [address] [place] [address] documented as of this encounter Procedures Procedure Name Priority Date/Time Associated Diagnosis Comments XR CHEST 1 VIEW Routine 05/24/2023 1:16 PM EST documented in this encounter Results * XR chest 1 view (05/24/2023 1:16 PM EST) Anatomical Region Laterality Modality Chest Radiographic Minerva ging us Collins Diane MD IMG XR PROCEDURES Final Resul t documented in this encounter Visit Diagnoses Not on filedocumented in this encounter Care Teams Systems Auditor Relationship Specialty Start Date End Date Kenny Brown MD PCP - General Family Medicine 11/09/22 06/27/23 Kenny Brown MD [address] [place] [address] PCP - General Family Medicine 06/28/23 documented as of this encounter
--- OUTSIDE RECORDS SUMMARY | 2024-10-29 13:46 | XMS_ITS | Clinical Summary ---
Author Organization [facility] [facility] Address [id number] [address] [place] [address] Care Team Providers Care Global Head Advertiser Solutions Name Role Phone Kenny Brown MD Primary Care Provider [phone] Allergies No known active allergies Medications rosuvastatin (CRESTOR) 40 mg tablet Take 40 mg by mouth daily. Active aspirin 81 mg Take 81 mg by mouth daily. Active metFORMIN (GLUCOPHAGE) 500 mg tablet Take 1 tablet by mouth 2 (two) times a day. Active metoprolol tartrate (LOPRESSOR) 25 mg tablet take 1 tablet (25MG) by oral route 2 times every day Oral Active lisinopril-hydro CHLOROthiazide (PRINZIDE,ZESTOR ETIC) 10-12.5 mg per tablet Take 1 tablet by mouth in the morning. Active Active Problems No known active problems Social History Tobacco Use Types Packs/Day Years Used Date Smoking Tobacco: Every Day Smokeless Tobacco: Never Alcohol Use Standard Drinks/Week Comments Not Currently 0 (1 standard drink = 0.6 oz pur e alcohol) Childcare Answer Date Recorded Childcare Unknown 09/26/2018 Employment Answer Date Recorded Employment Unknown 09/26/2018 Hunger Screening Answer Date Recorded Within the past 12 months we worried whether our food would run out before we got money to buy more. Never True 04/15/2022 Within the past 12 months th e food we bought just didn't last and we didn't have money to get more. Never True 04/15/2022 Purpose - Life Answer Date Recorded Purpose and direction in life Unknown Sex and Gender Information Value Date Recorded Sex Assigned at Not on file Legal Sex Male 1:44 PM EST Gender Identity Not on file Sexual Orientation Not on file Last Filed Vital Signs Vital Sign Reading Time Taken Comments Blood Pressure 129/72 04/15/2022 11:10 PM EST Pulse 67 04/15/2022 11:10 PM EST Temperature 36.6 C (97.8 F) 04/15/2022 11:10 PM EST Respiratory Rate 20 04/15/2022 11:10 PM EST Oxygen Saturation 96% 04/15/2022 11:10 PM EST Inhaled Oxygen Concentration - - Weight 86.6 kg (191 lb) 04/15/2022 11:10 PM EST Height 170.2 cm (5' 7 ) 04/15/2022 11:10 PM EST Body Mass Index 29.91 04/15/2022 11:10 PM EST Plan of Treatment Health Maintenance Due Date Last Done Comments Depression Screening 1962 Tobacco Screening 1962 DTaP,Tdap and Td Vaccines (1 - Tdap) 1967 Zoster (Shingles) Vaccine (1 of 2) 1998 Abdominal Aortic Aneurysm (AAA) Screen 2013 Fall Risk Screening 2013 Influenza Vaccine 12/16/2024 Medical Devices Not on file Insurance [facility] MEDICARE Care Teams Global Head Advertiser Solutions Relationship Specialty Start Date End Date Kenny Brown MD PCP - General Family Medicine 05/01/18
--- OUTSIDE RECORDS SUMMARY | 2024-10-29 13:46 | XMS_ITS | Encounter Summary ---
Author Organization [facility] Address [address] [place] [address] Care Team Providers Care New Patient Escort Name Role Phone Kenny Brown MD Primary Care Provider [phone] Encounter Details Date Type Department Care Team (Late Contact Info) Description 10/28/2024 Bamboo flowsheet [facility] [address] [place] [phone] Sigifredo Brunner DPM [address] [place], [place] [phone] Social History Tobacco Use Types Packs/Day Years [...] 12/05/2024 2:00 PM EDT [facility] [address] [place] [phone] Kenny Brown MD [address] [place] [address] 02/17/2025 3:15 PM EST Procedure Visit [facility] [address] [address] Sigifredo Brunner, CLAYTON [address] [place], [place] [address] documented as of this encounter Visit Diagnoses Not on filedocumented in this encounter Care Teams New Patient Escort Relationship Specialty Start Date End Date Kenny Brown MD [address] [place] [phone] PCP - General Family Medicine 06/28/23 documented as of this encounter
--- OUTSIDE RECORDS SUMMARY | 2024-10-29 13:46 | XMS_ITS | Encounter Summary ---
Author [id number] [address] [place] [address] Care Team Providers Care Tube Drawing Supervisor Name Role Phone Kenny Brown MD Primary Care Provider [phone] Reason for Visit * Reason Onset Date Comments Hospital Follow-up 05/25/2023 Encounter Details Date Type Department Care Team (Late st Contact Info) Description 05/25/2023 Telephone [facility] [address] [place] [address] [facility] Social History Tobacco Use Types Packs/Day Years [...] on file documented as of this encounter Miscellaneous Notes * Telephone Encounter - Machelle Valentin - 05/25/2023 8:26 AM EST Images from the original note were not included. Received email from Sarita Billy and Jacqueline stating patient needs to follow up with in [place] for Dementia Evaluation. However, there are no openings until 11/17/2023. Please advise where patient should be scheduled at this time. * Telephone Encounter - Dori Keith CMA - 05/25/2023 8:26 AM EST Please advise if patient can be seen by Don for sooner appt. and if okayed by Don I will get her on his schedule. Thanks!! * Telephone Encounter - Don Billy PA-C - 05/25/2023 8:26 AM EST - Okay. Hospital ER follow up regarding Altered Mental Status. [facility], so will need labs, EEG results, and imaging results (images in PACS also if we can). - [facility] * Telephone Encounter - Katey Trinidad MD - 05/25/2023 8:26 AM EST As long as Don is okay with it. I have no issues. * Telephone Encounter - Dori Keith CMA - 05/25/2023 8:26 AM EST Patient has been scheduled with Don. documented in this encounter Plan of Treatment Not on file documented as of this encounter Visit Diagnoses Not on filedocumented in this encounter Care Teams Tube Drawing Supervisor Relationship Specialty Start Date End Date Kenny Brown MD PCP - General Family Medicine 05/01/18 documented as of this encounter
--- OUTSIDE RECORDS SUMMARY | 2024-10-29 13:46 | XMS_ITS | Encounter Summary ---
Author Organization [facility] Address [address] [place] [address] Care Team Providers Care Manager Metal Name Role Phone Kenny Brown MD Primary Care Provider Encounter Details Date Type Department Care Team (Late Contact Info) Description 07/31/2023 Abstract [facility] [address] [place] [address] Kenny Brown MD [address] [place] [place] [address] Social History Tobacco Use Types Packs/Day Years [...] 12/05/2024 2:00 PM EDT [facility] [address] [place] [address] Kenny Brown MD [address] [place] [address] 02/17/2025 3:15 PM EST Procedure Visit [facility] [address] [place] [address] Sigifredo Brunner, C[place] [address] [facility] [place], [place] [address] documented as of this encounter Visit Diagnoses Not on filedocumented in this encounter Care Teams Manager Metal Relationship Specialty Start Date End Date Kenny Brown MD [address] [place] [address] PCP - General Family Medicine 06/28/23 documented as of this encounter
--- OUTSIDE RECORDS SUMMARY | 2024-10-29 13:47 | XMS_ITS | Clinical Summary ---
Author Organization [facility] Address [address] [place], [place] [address] Care Team Providers Care Industrial Rehabilitation Consultant Name Role Phone Kenny Brown MD Primary Care Provider [phone] Allergies No known active allergies Medications latanoprost (XALATAN) 0.005 % ophthalmic solution 03/17/2017 Active metoprolol tartrate, short acting, (LOPRESSOR) 25 mg tablet 05/25/2017 Active rosuvastatin (CRESTOR) 20 mg tablet 06/06/2017 Active sertraline (ZOLOFT) 100 mg tablet 04/24/2017 Active traZODone (DESYREL) 100 mg tablet 05/25/2017 Active traZODone (DESYREL) 50 mg tablet 03/27/2017 Active Active Problems Problem Noted Date Diagnosed Date Thrombocytopenia 06/15/2017 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 Undescended left testicle 06/15/2017 Family History Medical History Relation Comments Diabetes Mother Relation Status Comments Mother Social History Tobacco Use Types Packs/Day Years Used Date Smoking Tobacco: Some Days Cigarettes Smokeless Tobacco: Never Tobacco Cessation:Counseling Given: No Alcohol Use Standard Drinks/Week Comments No 0 (1 standard drink = 0.6 oz pur e alcohol) Sex and Gender Information Value Date Recorded Sex Assigned at Not on file Legal Sex Male 2:25 PM EST Gender Identity Not on file Sexual Orientation Not on file Last Filed Vital Signs Vital Sign Reading Time Taken Comments Blood Pressure 149/69 06/15/2017 3:24 PM EST Pulse 53 06/15/2017 3:24 PM EST Temperature 36.1 C (97 F) 06/15/2017 3:24 PM EST Respiratory Rate 18 06/15/2017 3:24 PM EST Oxygen Saturation - - Inhaled Oxygen Concentration - - Weight 92.8 kg (204 lb 9.6 oz) 06/15/2017 3:24 P M EST Height 167.6 cm (5' 6 ) 06/15/2017 3:24 PM EST Body Mass Index 33.02 06/15/2017 3:24 PM EST Plan of Treatment Health Maintenance Due Date Last Done Comments Anxiety Screening 1966 Depression Screening 1966 Hepatitis C Screening 1966 DTaP,Tdap,Td Vaccine (1 - Tdap) 1967 Diabetes Screening 1993 Pneumococcal Vaccine: 50+ (1 of 1 - PCV) 1998 Shingrix Vaccine (1 of 2) 1998 RSV Vaccine (1 - 1-dose 75+ series) 2023 Covid-19 Vaccine (1 - season) 2023 Advance Directive Discussion 04/17/2024 Influenza Vaccine (#1) 2024 Insurance [employer] MEDICARE ADVANTAGE PPO Care Teams Industrial Rehabilitation Consultant Relationship Specialty Start Date End Date Kenny Brown MD [address] [place] [address] PCP - General Family Medicine 06/09/17
--- OUTSIDE RECORDS SUMMARY | 2024-10-29 13:47 | XMS_ITS | Encounter Summary ---
Author Organization [facility] Address [address] [place] [address] Care Team Providers Care Revenue Settlements Administrator Name Role Phone Kenny Brown MD Primary Care Provider Encounter Details Date Type Department Care Team (Latest Contact Info) Description 10/28/2024 Travel Social History Tobacco Use Types Packs/Day Years [...] Upcoming Encounters Date Type Department Care Team ( Contact Info) Description 12/05/2024 2:00 PM EDT Office Visit [facility] [address] [place] [address] Kneny Brown MD [address] [place] [address] 02/17/2025 3:15 PM EST Procedure Visit [facility] [address] [place] [address] Sigifredo Brunner DPM [address] [place], [place] [phone] documented as of this encounter Visit Diagnoses Not on filedocumented in this encounter Care Teams Revenue Settlements Administrator Relationship Specialty Start Date End Date Kenny Brown MD [address] [place] [address] PCP - General Family Medicine 06/28/23 documented as of this encounter
--- OUTSIDE RECORDS SUMMARY | 2024-10-29 13:47 | XMS_ITS | Encounter Summary ---
Author Organization [facility] Address [address] [place] [address] Care Team Providers Care Fire Fighter Name Role Phone Kenny Brown MD Primary Care Provider [phone] Encounter Details Date Type Department Care Team (Late Contact Info) Description 11/06/2023 Clinisync Result Encounter [facility] Unsolicited Provider, Generic External Data Social History Tobacco Use Types Packs/Day Years [...] Upcoming Encounters Date Type Department Care Team ([facility] Contact Info) Description 12/05/2024 2:00 PM EDT [facility] [address] [place] [address] Kenny Brown MD [address] [place] [phone] 02/17/2025 3:15 PM EST Procedure Visit [facility] [address] [place] [phone] Sigifredo Brunner DPM [address] [place], [place] [phone] (work) documented as of this encounter Procedures Procedure Name Priority Date/Time Associated Diagnosis Comments CT ANGIOGRAM CHEST 11/06/2023 1: 06 PM EDT documented in this encounter Results * CT angiogram chest (11/06/2023 1:06 PM EDT) Anatomical Region Laterality Modality Body, Chest Computed Tomogra phy 11/06/2023 1:06 PM EDT Narrative 11/06/2023 1:09 PM EDT The [address] [address] [address] Scan Report Signed Patient: JAMES POPE MR#: [id number] : 1950 Acct:[id number] Age/Sex: 73 / M ADM Date: 11/03/23 Loc: LAB Attending Dr: MED VELASQUEZ Ordering Physician: MED VELASQUEZ Date of Service: 11/03/23 Procedure(s): CT angio chest Accession Number(s): [id number] cc: Kenny Brown M.D. The [address] [address] Patient Name: JAMES POPE MRN: [id number] date: 1950 Sex: M Assigned Patient Location: LAB Current Patient Location: Accession/Order Number: [id number] Exam Date: 11/03/2023 15:43 Report Date: 11/06/2023 13:06 At the request of: MED VELASQUEZ Procedure: CT angio chest EXAMINATION: CT angio chest HISTORY: Aortic Aneurysm Of Unspecified Site I71.9 COMPARISON: No relevant comparison available. TECHNIQUE: Multi-planar CT images were created with IV contrast. Axial, Coronal, and Sagittal images. Dose reduction techniques were achieved by using automated exposure control and/or adjustment of mA and/or kV according to patient size and/or use of iterative reconstruction technique. FINDINGS: LUNGS: Scattered subcentimeter solid noncalcified pulmonary nodules the largest in the right lower lobe measures 6.7 mm axial image #68 PLEURA: No mass, effusion, or pneumothorax. VASCULATURE: Suboptimal opacification of the central pulmonary arterial tree with no definite filling defect to suggest a pulmonary embolus ISABEL: No mass or adenopathy. MEDIASTINUM: No mass or adenopathy. CARDIAC: No enlargement or pericardial effusion. Coronary arteries: Heavy coronary atherosclerosis AORTA: Prominent ascending thoracic aorta measuring 3.9 cm in diameter. Moderate calcific atherosclerosis CHEST WALL: No mass or axillary adenopathy. BONES: No bone lesion or fracture. Exaggerated thoracic kyphosis. Moderate to severe degenerative spondylosis LIMITED ABDOMEN: No suspicious findings. Limited images of the upper abdomen. OTHER: Negative. 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 Signed By: 11/06/23 1309 DD/ 1306 TD/TT: Lab Instructor: Procedure Note Radiology, Radiologist, MD - 11/06/2023 [place] [address] CT Scan Report Signed Patient: JAMES POPE R#: [id number] : 1950cct:[id number] Age/Sex: 73 / MADM Date: 11/03/23 Loc: LAB Attending Dr: MED VELASQUEZ Ordering Physician: MED VELASQUEZ Date of Service: 11/03/23 Procedure(s): CT angio chest Accession Number(s): [id number] cc: Kenny Brown M.D. The [place] [address] Patient Name: JAMES POPE MRN: [id number] date: 1950 Sex: M Assigned Patient Location: LAB Current Patient Location: Accession/Order Number: [id number] Exam Date: 11/03/2023 15:43 Report Date: 11/06/2023 13:06 At the request of: MED VELASQUEZ Procedure: CT angio chest EXAMINATION: CT angio chest HISTORY: Aortic Aneurysm Of Unspecified Site I71.9 COMPARISON: No relevant comparison available. TECHNIQUE: Multi-planar CT images were created with IV contrast. Axial, Coronal, and Sagittal images. Dose reduction techniques were achieved byusing automated exposure control and/or adjustment of mA and/or kV according to patient size and/or use of iterative reconstruction technique. FINDINGS: LUNGS: Scattered subcentimeter solid noncalcified pulmonary nodules the largest in the right lower lobe measures 6.7 mm axial image #68 PLEURA: No mass, effusion, or pneumothorax. VASCULATURE: Suboptimal opacification of the central pulmonary arterialtree with no definite filling defect to suggest a pulmonary embolus ISABEL: No mass or adenopathy. MEDIASTINUM: No mass or adenopathy. CARDIAC: No enlargement or pericardial effusion. Coronary arteries: Heavy coronary atherosclerosis AORTA: Prominent ascending thoracic aorta measuring 3.9 cm in diameter. Moderate calcific atherosclerosis CHEST WALL: No mass or axillary adenopathy. BONES: No bone lesion or fracture. Exaggerated thoracic kyphosis. Moderateto severe degenerative spondylosis LIMITED ABDOMEN: No suspicious findings. Limited images of the upperabdomen. OTHER: Negative. 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 Signed By:11/06/23 1309 DD/ 1306 TD/TT: Lab Instructor: Generic External Data Provider IMG CT PROCEDURES Final Result documented in this encounter Visit Diagnoses Not on filedocumented in this encounter Care Teams Fire Fighter Relationship Specialty Start Date End Date Kenny Brown MD [address] [place] [address] PCP - General Family Medicine 06/28/23 documented as of this encounter
--- NOTE | 2024-10-29 14:00 | CT_ITS ---
The [address] [address] Patient Name: JAMES POPE MRN: [id number] date: 1950 Sex: M Assigned Patient Location: LAB Current Patient Location: Accession/Order Number: [id number] Exam Date: 10/30/2024 08:03 Report Date: 10/30/2024 08:15 At the request of: WYATT STALLINGS Procedure: CT angio chest CTA CHEST WITH CONTRAST CLINICAL HISTORY: Follow-up Aortic Aneurysm Without Rupture COMPARISON: 11/03/2023 TECHNIQUE: Spiral images were obtained through the chest following intravenous administration of 100 mL of Omnipaque 350. Images were reviewed using both narrow and wide window settings. Sagittal, coronal and 3 D volume-rendered reconstructions were performed and reviewed. This CT exam was performed using one or more following dose reduction techniques: Automated exposure control, adjustment of the mA and/or kV according to patient size, or use of iterative reconstruction technique. FINDINGS: Median sternotomy wires are noted. The heart is top normal in size. There is no pericardial effusion. There is coronary artery disease and/or stents. There is similar mild dilatation ascending aorta with diameter of 4.1 cm. The proximal descending aorta measures just under 4 cm. No dissection is identified. There is atherosclerotic plaque at the aortic arch, descending aorta and proximal great vessels. The pulmonary arteries are suboptimally opacified to assess for emboli. No pathologic lymphadenopathy is seen. There is slight dextroscoliotic curvature as well as endplate spurring at the spine. The lower posterior lungs are not included in their entirety. Minor apical scarring is noted. Minor atelectasis and/or scarring is also visualized at the lung bases. There is no additional consolidation, effusion or pneumothorax. There are a couple calcified granulomas. There is also a 7 mm subpleural nodule at the anterolateral right lower lobe which was also present on the prior. Limited cuts through the upper abdomen show additional atherosclerotic disease. There are colonic diverticula in the field of view. CT/CT angio chest IMPRESSION: SIMILAR MILDLY DILATED THORACIC AORTA. NO EVIDENCE OF DISSECTION. MINIMAL ATELECTASIS AND SCARRING. PULMONARY NODULARITY, UNCHANGED. Impression dictated by: Jolie Lester M.D. 10/30/2024 8:15 AM Dictation Location: [place] [address] Electronically authenticated by: [id number] Y Date: 10/30/2024 08:15
--- OUTSIDE RECORDS SUMMARY | 2024-10-29 14:05 | XMS_ITS | CCD ---
Author Organization [facility] Care Team Providers Care Coater Name Role Phone CAREY TREVIÑO Unavailable Unavailable AUDREY OSHEA Unavailable Unavailable NADERER, DR KENNY Jones Primary Care Unavailable REINECK, DR GEO Carlson Admitting Unavailabl e REINECK, DR GEO Calrson Attending Unavailabl e GLORIA ., JUAN MANUEL [...] Unavailabl e ALICIA, NORY Consulting Unavailable NADERER, KENNY Primary Care Unavailable FARRUKH RODRIGUEZ P Consulting Unavailable INPATIENT, TELENEUROLOGY Consulting Unavail able SHINE ELLISON Referring Unavailable NADEREAde, KENNY Primary Care Unavailable NADEREAde, KENNY Primary Care Unavailable SHINE ELLISON Referring Unavailable Naderer Kenny JEFFERS Primary Care Provider SIGIFREDO BRUNNER Attending Unavailable NADERER, KENNY Attending Unavailable NADERER, KENNY Attending Unavailable RUSHER, SIGIFREDO Jones Attending Unavailable NADERER, KENNY Attending Unavailable NADERER, KENNY Attending Unavailable RUSHER, SIGIFREDO Jones Attending Unavailable NADERER, KENNY Attending Unavailable RUSHER, SIGIFREDO Jones Attending Unavailable NADERER, KENNY Attending Unavailable AGNIESZKAHOTHMED HERNANDEZ Attending Unavailable MED PAZ Attending Unavailable Allergies Allergy Classification Reported Allergen(s) Allergy Type Date of Onset Reaction(s) Facility (1 source) bee venom Drug allergy (disorder) [facility] (1 source) Iodine (And Iodine Containting Drugs) Drug allergy (disorder) [facility] (18 sources) Honey bee venom Allergy to substance 11-24-2022 Unknown [facility] Medications Current Medications Medication Drug Class(es) Dates Sig (Normalized) Sig (Original) aspirin 81 mg oral tablet (18 sources) Platelet Aggregation Inhibitor, Nonsteroidal Anti-inflammatory Drug buffered aspirin (Bufferin Low Dose) 81 MG tablet Active cholecalciferol 0.05 mg oral capsule (18 sources) Vitamin D take 1 capsule by mouth once daily cholecalciferol (Vitamin D-3) 50 MCG (1999 UT) capsule Take 2,000 Units by mouth Daily Active take 1 capsule by mouth in the m orning cholecalciferol (Vitamin D-3) 50 MCG (2000 UT) capsule Take 2,000 Units by mouth in the morning. Active Glucose Blood (PRODIGY BLOOD GLUCOSE TEST ) (18 sources) Glucose Blood (P RODIGY BLOOD GLUCOSE TEST ) Active metFORMIN hydrochloride 500 mg oral tablet (18 sources) Biguanide Start: 03-22-2024 End: 03-22-2025 take 1 tablet by mouth in the morning metFORMIN (Glucophage) 500 MG tablet Indications: Type 2 diabetes mellitus with polyneuropathy (HCC) Take 1 tablet (500 mg) by mouth in the morning and 1 tablet (500 mg) in the evening. Take with meals. 60 tablet 5 07/01/2024 Active take 1 tablet by mouth in the mo rning metFORMIN (Glucophage) 500 MG tablet Take 500 mg by mouth in the morning and 500 mg in the evening. Take with meals. Active rosuvastatin calcium 20 mg oral tablet (18 sources) HMG-CoA Reductase Inhibitor Start: 03-22-2024 End: 03-22-2025 take 1 tablet by mouth once daily rosuvastatin (Crestor) 20 MG tablet Indications: Dyslipidemia Take 1 tablet (20 mg) by mouth Daily 30 tablet 11 03/22/2024 03/22/2025 Active take 1 tablet by mouth once steffi y rosuvastatin (Crestor) 20 MG tablet Take 20 mg by mouth Daily Active sodium chloride 1000 mg oral tablet (19 sources) Start: 11-15-2023 End: 11-14-2024 take 1 tablet by mouth at bedtime sodium chloride 1 g tablet Indications: Hyponatremia Take 1 tablet (1 g) by mouth in the morning and 1 tablet (1 g) before bedtime. 60 tablet 5 12/06/2023 Active Completed/Discontinued Medications Medication Drug Class(es) Dates Sig (Normalized) Sig (Original) meclizine hydrochloride 25 mg oral tablet (16 sources) Antiemetic End: 06-06-2024 take 1 tablet by mouth four times daily as needed for dizziness meclizine (Antivert) 25 MG tablet Take 25 mg by mouth 4 (four) times a day as needed for dizziness 06/06/2024 Discontinued Problems Active Problems Problem Classification Problem Date Documented Da te Episodic/Chronic Chronic obstructive pulmonary disease and bronchiectasis (6 sources) Chronic obstructive lung disease; 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: [Chronic obstructive pulmonary disease, unspecified] Onset: 06-06-2024 06-06-2024 Chronic Coagulation and hemorrhagic disorders (1 source) Thrombocytopenia, unspecified; 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: [Thrombocytopenia, unspecified] Onset: 06-15-2017 Chronic Coronary atherosclerosis and other heart disease (20 sources) Atherosclerotic heart disease of [place] coronary artery without angina pectoris; 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: [Coronary atherosclerosis] Onset: 05-03-2022 04-24-2023 Chronic Coronary atherosclerosis and other heart disease (1 source) Presence of aortocoronary bypass graft; 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: [PRESENCE AORTOCORONARY BYPASS GRAFT] Onset: 05-03-2022 Episodic Delirium, dementia, and amnestic and other cognitive disorders (20 sources) Senile dementia; 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: [Unspecified dementia without behavioral disturbance] Onset: 04-24-2023 09-06-2023 Chronic Diabetes mellitus with complications (20 sources) Type 2 diabetes mellitus with hyperglycemia; 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: [Hyperglycemia due to type 2 diabetes mellitus] Onset: 07-27-2022 Chronic Diabetes mellitus without complication (1 source) Type 2 diabetes mellitus without complications; 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: [TYPE 2 DM WITHOUT COMPLICATIONS] Onset: 05-03-2022 Chronic Disorders of lipid metabolism (19 sources) Dyslipidemia; 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: [Hyperlipidemia, unspecified] Onset: 04-24-2023 04-24-2023 Chronic Diverticulosis and diverticulitis (1 source) Diverticulitis of large intestine without perforation or abscess without bleeding; 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: [DVTRCLI LG INT NO PERF/ABSC W/O BL] Onset: 05-03-2022 Chronic Essential hypertension (20 sources) Essential (primary) hypertension; 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: [Benign hypertension] Onset: 05-03-2022 04-24-2023 Chronic Mood disorders (20 sources) Recurrent major depressive episodes, mild ; 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: [Major depressive disorder, recurrent, mild] Onset: 04-24-2023 09-06-2023 Chronic Mycoses (3 sources) Onychomycosis due to dermatophyte ; 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: [Tinea unguium] 02-20-2024 Episodic Other aftercare (1 source) 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; 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: [[facility] CURRENT USE OF ASPIRIN] Onset: 05-03-2022 Episodic Other aftercare (1 source) Other longterm (current) drug therapy; 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: [OTH [employer]AN[employer] REPAIRER CURRENT DRUG THERAPY] Onset: 05-03-2022 Episodic Other aftercare (1 source) 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; 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: [[facility] USE ORAL HYPOGLYCEMIC DX] Onset: 05-03-2022 Episodic Other connective tissue disease (6 sources) Pain in toe; 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: [Pain in right toe(s)] 02-20-2024 Episodic Other gastrointestinal disorders (3 sources) Diarrhea, unspecified; 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: [DIARRHEA UNSPECIFIED] Onset: 05-01-2022 Episodic Other skin disorders (3 sources) Dystrophia unguium; 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: [Nail dystrophy] 02-20-2024 Episodic Spondylosis; intervertebral disc disorders; other back problems (18 sources) Degeneration of lumbar intervertebral disc; 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: [DDD (degenerative disc disease), lumbar] Onset: 04-24-2023 04-24-2023 Chronic Substance-related disorders (1 source) Nicotine dependence, cigarettes, uncomplicated; 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: [NICOTINE DEPEND CIGARETTES UNCOMP] Onset: 05-03-2022 Chronic Past or Other Problems Problem Classification Problem Date Documented Da te Episodic/Chronic Blindness and vision defects (18 sources) Visual hallucinations; 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: [Visual hallucinations] Onset: 06-28-2023 Resolved: 12-04-2023 12-04-2023 Episodic E Codes: Natural/environment (1 source) Other and unspecified overexertion or strenuous movements or postures, initial encounter; 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: [OTH AND UNS OVREXRT/STRN MVMT/POS INT] Onset: 02-15-2022 Episodic Fluid and electrolyte disorders (19 sources) Hyponatremia; 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: [Hypo-osmolality and hyponatremia] Onset: 06-28-2023 06-28-2023 Episodic Malaise and fatigue (18 sources) Fatigue; 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: [Other fatigue] Onset: 04-24-2023 Resolved: 06-06-2024 04-24-2023 Episodic Other aftercare (16 sources) Long-term current use of drug therapy; 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: [Other long winder tender (current) drug therapy] Onset: 04-24-2023 04-24-2023 Episodic Other aftercare (20 sources) Patient encounter status; 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: [Encounter for screening for malignant neoplasm of prostate] Onset: 04-24-2023 04-24-2023 Episodic Other injuries and conditions due to external causes (1 source) Unspecified injury of left ankle, initial encounter; 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: [UNSPECIFIED INJURY LT ANKLE INITIAL] Onset: 02-15-2022 Episodic Other nervous system disorders (18 sources) Metabolic encephalopathy; 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: [Metabolic encephalopathy] Onset: 06-28-2023 Resolved: 12-04-2023 12-04-2023 Chronic Other non-traumatic joint disorders (3 sources) Pain in left ankle and joints of left foot; 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: [PAIN IN LEFT ANKLE] Onset: 02-14-2022 Episodic Residual codes; unclassified (18 sources) Persistent insomnia; 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: [Insomnia, unspecified] Onset: 04-24-2023 04-24-2023 Episodic Residual codes; unclassified (18 sources) Transient alteration of awareness; 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: [Transient alteration of awareness] Onset: 06-28-2023 Resolved: 12-04-2023 12-04-2023 Episodic Results Test Name Value Interpretation Reference Range Facility ALL CBC WITH AUTO DIFFon BASOPHILS ABSOLUTE AUTO 0.1 [facility] Basophils/100 WBC (Bld) 0.9 % 0.2 - 2.0 % [facility] Eosinophils/100 WBC (Bld) 3.2 % 0.9 - 7.0 % [facility] Erythrocyte distribution width (RBC) [Ratio] 12.3 % 11.0 - 15.0 % [facility] Hematocrit (Bld) [Volume fraction] 47.9 % 42.0 - 54.0 % [facility] Hemoglobin (Bld) [Mass/Vol] 16.9 g/dL 14.0 - 18.0 g/dL [facility] IMMATURE GRANULOCYTES ABS AUTO 0.08 High [facility] Immature granulocytes/100 WBC (Bld) 1 % High 0.0 - 0.5 % [facility] Interpretation and review of laboratory results Abnormal [facility] LYMPHOCYTES ABSOLUTE [facility]O 2.3 [facility] Lymphocytes/100 WBC (Bld) 28.4 % 20.5 - 60.0 % [facility] MCH (RBC) [Entitic mass] 33.2 pg 25.9 - 34.0 pg [facility] MCHC (RBC) [Mass/Vol] 35.3 g/dL High 29.9 - 35.2 g/dL [facility] MCV (RBC) [Entitic vol] 94.1 fL High 80.0 - 94.0 fL [facility] MONOCYTES ABSOLUTE AUTO 0.7 [facility] Monocytes/100 WBC (Bld) 9.1 % 1.7 - 12.0 % [facility] NEUTROPHILS ABSOLUTE AUTO 4.6 [facility] Neutrophils/100 WBC (Bld) 57.4 % 43.0 - 75.0 % [facility] Platelet mean volume (Bld) [Entitic vol] 10.7 fL 9.5 - 13.5 fL [facility] TBH EO # 0.3 [facility] PLT 117 Low [facility] TB RBC 5.09 [facility] TB WBC 8 [facility] [place] [facility] Office Visiton 06-04-2024 Follow-up visit [id number] Kj Barros 1950 M [facility] Provider Department Center 06/04/2024 MED FELICIANO Family History Problem Relation Age of Onset Heart attack Maternal Grandfather Family Status - Relation Status Age at Maternal Grandfather Level of Service:65850 [place] OFFICE/OUTPATIENT ESTABLISHED LOW MDM 20 MIN Normal [facility] Office Visiton 12-11-2023 Follow-up visit [id number] Kj Barros 1950 M [facility] Provider Department Center 12/11/2023 MED FELICIANO Family History Problem Relation Age of Onset Heart attack Maternal Grandfather Family Status - Relation Status Age at Maternal Grandfather Level of Service:[address]83 [place] OFFICE/OUTPATIENT ESTABLISHED MOD MDM 30 MIN Normal [facility] Orders Onlyon 12-11-2023 Orders Only [id number] Kj Barros 1950 M Date Provider Department Center 12/11/2023 VEE CONTRERAS DIANA [facility] Family History Problem Relation Age of Onset Heart attack Maternal Grandfather Family Status - Relation Status Age at Maternal Grandfather Normal [facility] MICROALBUMIN, RAND URon 12-11-2023 MICROALBUMIN URINE RANDOM 19.3 mg/dL NINF - 30.0 mg/dL [facility] BASIC METABOLIC PANELon 12-06-2023 Anion gap [Moles/Vol] 13.0 mmol/L [facility] Calcium [Mass/Vol] 10.1 mg/dL 8.5 - 10. 1 mg/dL [facility] Chloride [Moles/Vol] 103 mmol/L 98 - 107 mmol/L [facility] CO2 [Moles/Vol] 26.1 mmol/L 21.0 - 32.0 mmol/L [facility] Creatinine [Mass/Vol] 0.95 mg/dL 0.70 - 1.30 mg/dL [facility] GFR/1.73 sq M.predicted CKD-EPI (S/P/Bld) [Vol rate/Area] >60 60 - PINF [facility] Glucose [Mass/Vol] 196 mg/dL High 74 - 106 mg/dL [facility] Interpretation and review of laboratory results Abnormal [facility] Potassium [Moles/Vol] 4.1 mmol/L 3.5 - 5.1 mmol/L [facility] Sodium [Moles/Vol] 138 mmol/L 136 - 145 mmol/L [facility] EGFR-NON AF BERMUDIAN >60 60 - PINF [facility] Urea nitrogen [Mass/Vol] 16.0 mg/dL 7.0 - 18.0 mg/dL [facility] Urea nitrogen/Creatinine [Mass ratio] 16.8 mg/mg [facility] GLYCOHEMOGLOBIN A1Con 2022 ADA RECOMMENDATION SEE BELOW Normal [facility] Comment on above: Result Comment: ADA RECOMMENDED LIMIT 4.0 - 6.0 ADA THERAPEUTIC TARGET < 7.0 ACTION SUGGESTED > 7.0 Performed By: #### A 1C ####[facility] [id number] [address]Dr. Vipul Jean Glucose [Mass/Vol] 197 mg/dL Normal [facility] Comment on above: Performed By: #### A 1C ####[facility] [id number] [address]Dr. Vipul Jean HbA1c (Bld) [Mass fraction] 8.5 % Critically high 4.5-6.2 [facility] Comment on above: Performed By: #### A 1C ####[facility] [id number] [address]Dr. Vipul Jean AMYLASEon 05-01-2022 Amylase [Catalytic activity/Vol] 33 U/L Normal 25-115 [facility] Comment on above: Performed By: #### A MY, HSTROPN, LIPA, CMP #### [facility] [address] [place] [address] Dr. Vipul Jean CBC AUTO DIFFon 05-01-2022 BASO # 0.1 103/ul Normal 0.0-0.1 [facility] Comment on above: Performed By: #### C BC #### [facility] [address] [place] [address] Dr. Vipul Jean Basophils/100 WBC (Bld) 0.6 % Normal 0.2-2.0 [facility] Comment on above: Performed By: #### C BC #### [facility] [address] [place] [address] Dr. Vipul Jean EO # 0.1 103/ul Normal 0.0-0.7 [facility] Comment on above: Performed By: #### C BC #### [facility] [address] [place] [address] Dr. Vipul Jean Eosinophils/100 WBC (Bld) 1.4 % Normal 0.9-7.0 [facility] Comment on above: Performed By: #### C BC #### [facility] [address] [place] [address] Dr. Vipul Jean Erythrocyte distribution width (RBC) [Ratio] 12.2 % Normal 11.0-15.0 [facility] Comment on above: Performed By: #### C BC #### [facility] [address] [address] [address] Vipul Jean Hematocrit (Bld) [Volume fraction] 46.0 % Normal 42.0-54.0 [facility] Comment on above: Performed By: #### C BC #### [facility] [address] [place] [address] Dr. Vipul Jean Hemoglobin (Bld) [Mass/Vol] 16.7 g/dL Normal 14.0-18.0 [facility] Comment on above: Performed By: #### C BC #### [facility] [address] [place] [address] Dr. Vipul Jean IG # 0.04 10e3/ul Critically high 0.00-0.03 [facility] Comment on above: Performed By: #### C BC #### [facility] [address] [place] [address] Dr. Vipul Jean IG % 0.4 % Normal 0.0-0.5 [facility] Comment on above: Performed By: #### C BC #### [facility] [address] [place] [address] Dr. Vipul Jean LYMPH # 1.7 103/ul Normal 1.2-3.8 [facility] Comment on above: Performed By: #### C BC #### [facility] [address] [place] [address] Dr. Vipul Jean Lymphocytes/100 WBC (Bld) 18.7 % Critically low 20.5-60.0 [facility] Comment on above: Performed By: #### C BC #### [facility] [address] [place] [address] Dr. Vipul Jean MANUAL DIFF REQ NO Normal [facility] Comment on above: Performed By: #### C BC #### [facility] [address] [place] [address] Dr. Vipul Jean MCH (RBC) [Entitic mass] 33.3 pg Normal 25.9-34.0 [facility] Comment on above: Performed By: #### C BC #### [facility] [address] [place] [address] Dr. Vipul Jean MCHC (RBC) [Mass/Vol] 36.3 g/dL Critically high 29.9-35.2 [facility] Comment on above: Performed By: #### C BC #### [facility] [address] [address] [address] Vipul Jean MCV (RBC) [Entitic vol] 91.6 fL Normal 80.0-94.0 [facility] Comment on above: Performed By: #### C BC #### [facility] [address] [address] [address] Vipul Jean MONO # 0.6 103/ul Normal 0.3-0.8 [facility] Comment on above: Performed By: #### C BC #### [facility] [address] [place] [address] Dr. Vipul Jean Monocytes/100 WBC (Bld) 6.9 % Normal 1.7-12.0 [facility] Comment on above: Performed By: #### C BC #### [facility] [address] [place] [address] Dr. Vipul Jean NEUT # 6.5 103/ul Normal 1.4-6.5 [facility] Comment on above: Performed By: #### C BC #### [facility] [address] [place] [address] Dr. Vipul Jean Neutrophils/100 WBC (Bld) 72.0 % Normal 43.0-75.0 [facility] Comment on above: Performed By: #### C BC #### [facility] [address] [address] [address] Vipul Jean Platelet mean volume (Bld) [Entitic vol] 10.5 fL Normal 9.5-13.5 [facility] Comment on above: Performed By: #### C BC #### [facility] [address] [place] [address] Dr. Vipul Jean PLT 125 103/ul Critically low 150-450 [facility] Comment on above: Performed By: #### C BC #### [facility] [address] [place] [address] Dr. Vipul Jean RBC 5.02 106/ul Normal 4.70-6.10 [facility] Comment on above: Performed By: #### C BC #### [facility] [address] [address] [address] Vipul Jean WBC 9.0 103/ul Normal 4.0-11.0 [facility] Comment on above: Performed By: #### C BC #### [facility] [address] ABD/PELVIS WO CONon [...] HOME MARX Date: 2022-05-01 15:31 Normal [facility] LIPASEon 05-01-2022 Lipase [Catalytic activity/Vol] 62.0 U/L Critically low 73.0-393.0 [facility] Comment on above: Performed By: #### A MY, HSTROPN, LIPA, CMP #### [facility] [address] [address] [address] Vipul Jean PROF 14(COMP METB)on 023 Albumin [Mass/Vol] 3.4 g/dL Normal 3.4-5.0 [facility] Comment on above: Performed By: #### A MY, HSTROPN, LIPA, CMP #### [facility] [address] [place] [address] Dr. Vipul Jean Albumin/Globulin [Mass ratio] 1.1 {ratio} Normal [facility] Comment on above: Performed By: #### A MY, HSTROPN, LIPA, CMP #### [facility] [address] [place] [address] Dr. Vipul Jean ALP [Catalytic activity/Vol] 93 U/L Normal 46-116 [facility] Comment on above: Performed By: #### A MY, HSTROPN, LIPA, CMP #### [facility] [address] [place] [address] Dr. Vipul Jean ALT [Catalytic activity/Vol] 38 U/L Normal 16-63 [facility] Comment on above: Performed By: #### A MY, HSTROPN, LIPA, CMP #### [facility] [address] [place] [address] Dr. Vipul Jean Anion gap [Moles/Vol] 10.6 mmol/L Normal [facility] Comment on above: Performed By: #### A MY, HSTROPN, LIPA, CMP #### [facility] [address] [place] [address] Dr. Vipul Jean AST [Catalytic activity/Vol] 29 U/L Normal 15-37 [facility] Comment on above: Performed By: #### A MY, HSTROPN, LIPA, CMP #### [facility] [address] [place] [address] Dr. Vipul Jean Bilirubin [Mass/Vol] 0.6 mg/dL Normal 0.2-1.0 [facility] Comment on above: Performed By: #### A MY, HSTROPN, LIPA, CMP #### [facility] [address] [place] [address] Dr. Vipul Jean Calcium [Mass/Vol] 10.0 mg/dL Normal 8.5-10.1 [facility] Comment on above: Performed By: #### A MY, HSTROPN, LIPA, CMP #### [facility] [address] [address] [address] Vipul Jean Chloride [Moles/Vol] 105 mmol/L Normal 98-107 [facility] Comment on above: Performed By: #### A MY, HSTROPN, LIPA, CMP #### [facility] [address] [address] [address] Vipul Jean CO2 [Moles/Vol] 24.6 mmol/L Normal 21.0-32.0 [facility] Comment on above: Performed By: #### A MY, HSTROPN, LIPA, CMP #### [facility] [address] [place] [address] Dr. Vipul Jean Creatinine [Mass/Vol] 1.08 mg/dL Normal 0.70-1.30 [facility] Comment on above: Performed By: #### A MY, HSTROPN, LIPA, CMP #### [facility] [address] [place] [address] Dr. Vipul Jean EGFR-AF BERMUDIAN >60 Normal >=60 [facility] Comment on above: Performed By: #### A MY, HSTROPN, LIPA, CMP #### [facility] [address] [place] [address] Dr. Vipul Jean EGFR-NON AF BERMUDIAN >60 Normal >=60 [facility] Comment on above: Performed By: #### A MY, HSTROPN, LIPA, CMP #### [facility] [address] [place] [address] Dr. Vipul Jean Globulin (S) [Mass/Vol] 3.2 g/dL Normal [facility] Comment on above: Performed By: #### A MY, HSTROPN, LIPA, CMP #### [facility] [address] [place] [address] Dr. Vipul Jean Glucose [Mass/Vol] 215 mg/dL Critically high 74-106 [facility] Comment on above: Performed By: #### A MY, HSTROPN, LIPA, CMP #### [facility] [address] [place] [address] Dr. Vipul Jean Potassium [Moles/Vol] 4.2 mmol/L Normal 3.5-5.1 [facility] Comment on above: Performed By: #### A MY, HSTROPN, LIPA, CMP #### [facility] [address] [place] [address] Dr. Vipul Jean Protein [Mass/Vol] 6.6 g/dL Normal 6.4-8.2 [facility] Comment on above: Performed By: #### A MY, HSTROPN, LIPA, CMP #### [facility] [address] [address] [address] Vipul Jean Sodium [Moles/Vol] 136 mmol/L Normal 136-145 [facility] Comment on above: Performed By: #### A MY, HSTROPN, LIPA, CMP #### [facility] [address] [place] [address] Dr. Vipul Jean Urea nitrogen [Mass/Vol] 16.0 mg/dL Normal 7.0-18.0 [facility] Comment on above: Performed By: #### A NICHOL, HSTROPN, LIPA, CMP #### [facility] [address] [place] [address] Dr. Vipul Jean Urea nitrogen/Creatinine [Mass ratio] 14.8 mg/mg Normal [facility] Comment on above: Performed By: #### A MY, HSTROPN, LIPA, CMP #### [facility] [address] [place] [address] Dr. Vipul Jean TROPONIN, HIGH SENSITIVITYon 05-01-2022 HSTROP 21.4 pg/mL Normal 4.0-76.1 [facility] Comment on above: Result Comment: CUT- OFF POINTS HAVE BEEN ESTABLISHED BASED ON THE FOURTH UNIVERSAL DEFINITIONS OF MYOCARDIAL INFARCTION. THE UPPER REFERENCE LIMIT (URL) OF TROPONIN, DEFINED THE 99TH PERCENTILE OF cTnI DISTRIBUTION IN A REFERENCE POPULATION, HAS BEEN CONFIRMED THE DECISION THRESHOLD FOR PA DIAGNOSIS. Performed By: #### A MY, HSTROPN, LIPA, CMP #### [facility] [address] [place] [address] Dr. Vipul Jean CBC AUTO DIFFon 02-14-2022 BASO # 0.1 103/ul Normal 0.0-0.1 [facility] Comment on above: Performed By: #### C BC #### [facility] [address] [place] [address] Dr. Vipul Jean Basophils/100 WBC (Bld) 0.6 % Normal 0.2-2.0 [facility] Comment on above: Performed By: #### C BC #### [facility] [address] [place] [address] Dr. Vipul Jean EO # 0.1 103/ul Normal 0.0-0.7 [facility] Comment on above: Performed By: #### C BC #### [facility] [address] [place] [address] Dr. Vipul Jean Eosinophils/100 WBC (Bld) 1.6 % Normal 0.9-7.0 [facility] Comment on above: Performed By: #### C BC #### [facility] [address] [place] [address] Dr. Vipul Jean Erythrocyte distribution width (RBC) [Ratio] 12.1 % Normal 11.0-15.0 [facility] Comment on above: Performed By: #### C BC #### [facility] [address] [place] [address] Dr. Vipul Jean Hematocrit (Bld) [Volume fraction] 47.9 % Normal 42.0-54.0 [facility] Comment on above: Performed By: #### C BC #### [facility] [address] [place] [address] Dr. Vipul Jean Hemoglobin (Bld) [Mass/Vol] 17.1 g/dL Normal 14.0-18.0 [facility] Comment on above: Performed By: #### C BC #### [facility] [address] [place] [address] Dr. Vipul Jean IG # 0.03 10e3/ul Normal 0.00-0.03 [facility] Comment on above: Performed By: #### C BC #### [facility] [address] [place] [address] Dr. Vipul Jean IG % 0.4 % Normal 0.0-0.5 [facility] Comment on above: Performed By: #### C BC #### [facility] [address] [place] [address] Dr. Vipul Jean LYMPH # 1.8 103/ul Normal 1.2-3.8 [facility] Comment on above: Performed By: #### C BC #### [facility] [address] [place] [address] Dr. Vipul Jean Lymphocytes/100 WBC (Bld) 22.4 % Normal 20.5-60.0 [facility] Comment on above: Performed By: #### C BC #### [facility] [address] [place] [address] Dr. Vipul Jean MANUAL DIFF REQ NO Normal [facility] Comment on above: Performed By: #### C BC #### [facility] [address] [place] [address] Dr. Vipul Jean MCH (RBC) [Entitic mass] 33.0 pg Normal 25.9-34.0 [facility] Comment on above: Performed By: #### C BC #### [facility] [address] [place] [address] Dr. Vipul Jean MCHC (RBC) [Mass/Vol] 35.7 g/dL Critically high 29.9-35.2 [facility] Comment on above: Performed By: #### C BC #### [facility] [address] [place] [address] Dr. Vipul Jean MCV (RBC) [Entitic vol] 92.5 fL Normal 80.0-94.0 [facility] Comment on above: Performed By: #### C BC #### [facility] [address] [place] [address] Dr. Vipul Jean MONO # 0.6 103/ul Normal 0.3-0.8 [facility] Comment on above: Performed By: #### C BC #### [facility] [address] [place] [address] Dr. Vipul Jean Monocytes/100 WBC (Bld) 7.0 % Normal 1.7-12.0 [facility] Comment on above: Performed By: #### C BC #### [facility] [address] [place] [address] Dr. Vipul Jean NEUT # 5.5 103/ul Normal 1.4-6.5 [facility] Comment on above: Performed By: #### C BC #### [facility] [address] [place] [address] Dr. Vipul Jean Neutrophils/100 WBC (Bld) 68.0 % Normal 43.0-75.0 [facility] Comment on above: Performed By: #### C BC #### [facility] [address] [place] [address] Dr. Vipul Jean Platelet mean volume (Bld) [Entitic vol] 11.0 fL Normal 9.5-13.5 [facility] Comment on above: Performed By: #### C BC #### [facility] [address] [place] [address] Dr. Vipul Jean PLT 101 103/ul Critically low 150-450 [facility] Comment on above: Performed By: #### C BC #### [facility] [address] [place] [address] Dr. Vipul Jean RBC 5.18 106/ul Normal 4.70-6.10 [facility] Comment on above: Performed By: #### C BC #### [facility] [address] [place] [address] Dr. Vipul Jean WBC 8.1 103/ul Normal 4.0-11.0 [facility] Comment on above: Performed By: #### C BC #### [facility] [address] [place] [address] Dr. Vipul Jean CRPon 02-14-2022 CRP [Mass/Vol] mg/L Normal <=1.0 [facility] Comment on above: Performed By: #### C RP, URIC #### [facility] [address] [place] [address] Dr. Vipul Jean URIC ACID SERUMon 10-31-2022 Urate [Mass/Vol] 4.4 mg/dL Normal 3.5-7.2 [facility] Comment on above: Performed By: #### C RP, URIC #### [facility] [address] [address] [address] Vipul Jean XR ANKLE LT MIN [...] by: NORY ALICIA Date: 2022-02-14 15:05 Normal [facility] CNOVSPon 06-15-2017 CNOVSP Visit (SP) Office ([facility]) Ko BARROS ELISE Canas ([id number]) 1950 [facility]/15/17 3:45 PM CAREY [...] kg (204 lb 9.6 oz) BMI 33.02 kg/v0Owagqnk Appearance: alert and oriented, appearing in no [...] testicle - ICD9: 752.51, ICD10: Q53.10See Cruz Treviño, MDReferring Provider: AUDREY OSHEA [[id number]]Allergies As of Date: 06/15/2017(No Known Allergies)Date Reviewed: 06/15/2017Reviewed by: Liliane Molina - Fully AssessedReason for Visit: low platelets [Other] Cmt: new patient consultationPrimary Visit Diagnosis:Thrombocytopeni a (HCC) [D69.6] Other Visit Diagnoses: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 left testicle [Q53.10]Order(s):ABS GRAN CT + CBC (FOR REMOTE C USE) [SQRAGCBC] Order #: [id number] FUTUREFollow-up and Disposition History RecordedPrescriptions as of [...] July Jesse 06/15/2017 3:27 PM >> JESSE JULY Dnea Jun 15, 2017 3:27 PM Received from: External PharmacyProblem List As Of Date 06/15/2017 Noted Resolved Thrombocytopenia (HCC) [D69.6] INVALID FOR* S/P CABG x 5 [Z95.1] INVALID FOR* Undescended left testicle [Q53.10] INVALID FOR*Encounter Status:Closed by CAREY TREVIÑO MD on 06/15/17 Normal [facility] PROGRESSon 06-15-2017 PROGRESS HNO ID: [id number] thor: [place]: (none)Author Type: PhysicianType: Progress [...] kg (204 lb 9.6 oz) BMI 33.02 kg/x7Vydjswg Appearance: alert and oriented, appearing in no [...] ABS GRAN CT + CBC (FOR REMOTE [facility] USE)2. S/P CABG x 5 - ICD9: V45.81, ICD10: Z95.1See above3. Undescended left testicle - ICD9: 752.51, ICD10: Q53.10See Cruz Treviño MD Normal [facility] Remote Abs Gran + CBC (for F use only)on 06-15-2017 Absol Gran Count 5.25 k/uL Normal 1.45-7.50 [facility] Erythrocyte distribution width Auto Ratio (RBC) 12.4 % Normal 11.5-15.0 [facility] Erythrocytes (RBC) 4.87 10*6/uL Normal 4.20-6.00 [facility] Hematocrit (HCT) 45.5 % Normal 39.0-51.0 [facility] Hemoglobin mass conc (Bld) 15.7 g/dL Normal 13.0-17.0 [facility] MCH 32.2 pG Normal 26.0-34.0 [facility] MCHC mass conc (RBC) 34.5 g/dL Normal 30.5-36.0 [facility] MCV 93.4 fL Normal 80.0-100.0 [facility] Platelet mean volume (PMV) 10.8 fL Normal 9.0-12.7 [facility] Platelets 116 10*3/uL Low 150-400 [facility] WBC (Leukocytes) 7.93 10*3/uL Normal 3.70-11.00 [facility] Vital Signs Date Time Vital Sign Value Performing Clinician Dexter alejandro 10-28-2024 15:04-0400 Body height 170.2 cm Sigifredo Brunner DPM Work Phone: [facility] 10-28-2024 15:04-0400 Body mass index (BMI) [Ratio] 28.04 kg/m2 Sigifredo Brunner DPM Work Phone: [facility] 10-28-2024 15:04-0400 Body weight 81.19 kg Sigifredo Brunner DPM Work Phone: [facility] 06-06-2024 13:33-0500 Body height 170.2 cm Kenny Horton MD Work Phone: [facility] 06-06-2024 13:33-0500 Body mass index (BMI) [Ratio] 28.04 kg/m2 Kenny Horton MD Work Phone: [facility] 06-06-2024 13:33-0500 Body temperature 98.2 [degF] Kenny Horton MD Work Phone: [facility] 06-06-2024 13:33-0500 Body weight 81.19 kg Kenny Horton MD Work Phone: [facility] 06-06-2024 13:33-0500 Diastolic blood pressure 62 mm[Hg] Kenny Horton MD Work Phone: [facility] 06-06-2024 13:33-0500 Heart rate 67 /min Kenny Horton MD Work Phone: [facility] 06-06-2024 13:33-0500 Respiratory rate 20 /min Kenny Horton MD Work Phone: [facility] 06-06-2024 13:33-0500 SaO2% (BldA) [Mass fraction] 97 % Kenny Horton MD Work Phone: [facility] 06-06-2024 13:33-0500 Systolic blood pressure 154 mm[Hg] Kenny Horton MD Work Phone: [facility] 05-22-2024 15:24-0500 Body height 170.2 cm Sigifredo Kannan DPM Work Phone: [facility] 05-22-2024 15:24-0500 Body mass index (BMI) [Ratio] 28.19 kg/m2 Sigifredo Kannan DPM Work Phone: [facility] 05-22-2024 15:24-0500 Body weight 81.65 kg Sigifredo Kannan DPM Work Phone: [facility] 03-05-2024 14:09-0500 Body height 170.2 cm Kenny Horton MD Work Phone: [facility] 03-05-2024 14:09-0500 Body mass index (BMI) [Ratio] 28.19 kg/m2 Kenny Horton MD Work Phone: [facility] 03-05-2024 14:09-0500 Body temperature 97.81 [degF] Kenny Horton MD Work Phone: [facility] 03-05-2024 14:09-0500 Body weight 81.65 kg Kenny Horton MD Work Phone: [facility] 03-05-2024 14:09-0500 Diastolic blood pressure 58 mm[Hg] Kenny Horton MD Work Phone: [facility] 03-05-2024 14:09-0500 Heart rate 60 /min Kenny Horton MD Work Phone: [facility] 03-05-2024 14:09-0500 Respiratory rate 18 /min Kenny Horton MD Work Phone: [facility] 03-05-2024 14:09-0500 SaO2% (BldA) [Mass fraction] 98 % Kenny Horton MD Work Phone: [facility] 03-05-2024 14:09-0500 Systolic blood pressure 122 mm[Hg] Kenny Horton MD Work Phone: [facility] 02-20-2024 15:16-0500 Body height 170.2 cm Sigifredo Brunner DPM Work Phone: [facility] 02-20-2024 15:16-0500 Body mass index (BMI) [Ratio] 25.06 kg/m2 Sigifredo Brunner DPM Work Phone: [facility] 02-20-2024 15:16-0500 Body weight 72.58 kg Sigifredo Brunner DPM Work Phone: [facility] Encounters Encounter Date Encounter Type Care Provider Facility Start: 10-28-2024 End: 10-28-2024 Patient encounter procedure Sigifredo Brunner DPM Work Phone: [facility] Comment on above: Dermatophytosis of n ail (Primary Dx); Dystrophic nail; Pain around toenail, right foot; Pain around toenail, left foot Start: 10-28-2024 End: 10-28-2024 Bamboo flowsheet Sigifredo Brunner DPM Work Phone: [facility] Start: 10-28-2024 End: 10-28-2024 Bamboo flowsheet Sigifredo Brunner DPM Work Phone: [facility] Start: 06-06-2024 End: 06-06-2024 Bamboo flowsheet Kenny Horton MD Work Phone: [facility] Start: 06-06-2024 End: 06-06-2024 Bamboo flowsheet Kenny Horton MD Work Phone: [facility] Start: 06-06-2024 End: 06-06-2024 Office outpatient visit 25 minutes Kenny Horton MD Work Phone: [facility] Comment on above: Type 2 diabetes ruma itus with hyperglycemia, without long-term current use of insulin (CMS/HCC) (Primary Dx); Benign hypertension (CMS/HCC); Chronic obstructive pulmonary disease, unspecified COPD type (CMS/HCC); Type 2 diabetes mellitus with polyneuropathy (CMS/HCC); Major depressive disorder, recurrent episode, mild (HCC) (CMS/HCC); 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 (CMS/HCC) Start: 06-06-2024 End: 06-06-2024 ambulatory KENNY HORTON Not Available Start: 06-05-2024 End: 06-05-2024 Clinisync Result Encounter Kenny Horton MD Work Phone: [facility] External Department Unsolicited Start: 06-05-2024 End: 06-05-2024 Clinisync Result Encounter Kenny Horton MD Work Phone: [facility] External Department Unsolicited Start: 06-04-2024 End: 06-04-2024 Orders Only Kenny Horton MD Work Phone: [facility] Comment on above: Screening PSA (prost ate specific antigen) (Primary Dx); Type 2 diabetes mellitus with hyperglycemia, without long-term current use of insulin (CMS/HCC); Dyslipidemia (CMS/HCC); Encounter for long-term (current) use of medications Start: 05-22-2024 End: 05-22-2024 ambulatory SIGIFREDO BRUNNER Not Available Start: 05-22-2024 End: 05-22-2024 Patient encounter procedure Sigifredo Brnuner DPRodolfo Work Phone: [facility] Comment on above: Dermatophytosis of n ail (Primary Dx); Dystrophic nail; Pain around toenail, right foot; Pain around toenail, left foot Start: 05-22-2024 End: 05-22-2024 Bamboo flowsheet Sigifredo Brunner DPM Work Phone: [facility] Start: 05-22-2024 End: 05-22-2024 Bamboo flowsheet Sigifredo Brunner DPM Work Phone: [facility] Start: 03-05-2024 End: 03-05-2024 Office outpatient visit 25 minutes Kenny Horton MD Work Phone: [facility] Comment on above: Type 2 diabetes ruma itus with hyperglycemia, without long-term current use of insulin (CMS/HCC) (Primary Dx); Benign hypertension ([facility]/HCC); Major depressive disorder, recurrent episode, mild (HCC) ([facility]/HCC); Type 2 diabetes mellitus with polyneuropathy (CMS/HCC); 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 ([facility]/HCC) Start: 03-05-2024 End: 03-05-2024 Bamboo flowsheet Kenny Horton MD Work Phone: [facility] Start: 03-05-2024 End: 03-05-2024 Bamboo flowsheet Kenny Horton MD Work Phone: [facility] Start: 03-05-2024 End: 03-05-2024 ambulatory KENNY HORTON Not Available Start: 02-20-2024 End: 02-20-2024 Patient encounter procedure Sigifredo Brunner DPM Work Phone: [facility] Comment on above: Dermatophytosis of n ail (Primary Dx); Dystrophic nail; Pain around toenail, right foot; Pain around toenail, left foot Start: 02-20-2024 End: 02-20-2024 ambulatory SIGIFREDO BRUNNER Not Available Start: 02-20-2024 End: 02-20-2024 Bamboo flowsheet Sigifredo Brunner DPM Work Phone: [facility] Start: 02-20-2024 End: 02-20-2024 Bamboo flowsheet Sigifredo Brunner DPM Work Phone: [facility] Start: 01-17-2024 End: 01-17-2024 Telephone encounter Kenny Horton MD Work Phone: [facility] Start: 12-11-2023 End: 12-11-2023 Clinisync Result Encounter Kenny Horton MD Work Phone: [facility] External Department Unsolicited Start: 12-11-2023 End: 12-11-2023 Clinisync Result Encounter Kenny Horton MD Work Phone: [facility] External Department Unsolicited Start: 12-11-2023 End: 12-11-2023 ambulatory [facility] Start: 12-06-2023 End: 12-06-2023 Clinisync Result Encounter Kenny Horton MD Work Phone: [facility] External Department Unsolicited Start: 12-06-2023 End: 12-06-2023 Clinisync Result Encounter Kenny Horton MD Work Phone: [facility] External Department Unsolicited Start: 12-06-2023 End: 12-06-2023 Orders Only Kenny Horton MD Work Phone: [facility] Comment on above: Hyponatremia Start: 12-04-2023 End: 12-04-2023 ambulatory KENNY MARADIAGAR Not Available Start: 11-20-2023 End: 11-20-2023 ambulatory SIGIFREDO A KANNAN Not Available Start: 10-03-2023 End: 10-03-2023 ambulatory KENNY WEBERERER Not Available Start: 09-06-2023 End: 09-06-2023 ambulatory KENNY WEBERERER Not Available Start: 08-21-2023 End: 08-21-2023 ambulatory SIGIFREDO A RUS Not Available Start: 06-28-2023 End: 06-28-2023 ambulatory KENNY MARADIAGAR Not Available Start: 06-16-2023 End: 07-17-2023 ambulatory SHINE ELLISON [facility] Start: 05-25-2023 End: 06-16-2023 ambulatory KENNY HORTON [facility] Start: 05-23-2023 End: 05-28-2023 Emergency department patient visit KENNY HORTON [facility] Start: 07-27-2022 End: 07-28-[address] KENNY HORTON Facility:[facility] Start: 05-01-2022 End: 05-01-[address] KENNY HORTON Facility:[facility] Start: 02-14-2022 End: 02-14-[address] KENNY HORTON Facility:[facility] Start: 06-15-2017 End: 06-16-2017 Ambulatory CAREY Salinas MCIAHNORBERTO [facility] Procedures Date Procedure Procedure Detail Performing Clinician Start: 06-05-2024 ALL CBC WITH AUTO DIFF Kenny Horton MD Work Phone: Start: 12-11-2023 TBH MICROALBUMIN, RA ND UR Kenny Horton MD Work Phone: Start: 12-06-2023 ALL BASIC METABOLIC PANEL Kenny Horton MD Work Phone: Start: 04-24-2023 History of coronary artery bypass grafting History of coronary artery bypass graft Kenny Horton MD Work Phone: Plan of Treatment Date Care Activity Detail Author Start: 02-20-2025 Glaucoma screening Diabetes: R etinopathy Screening [facility] Start: 02-17-2025 End: 02-17-2025 Patient encounter procedure 02/17/2025 3:15 PM EST Procedure Visit [facility] [address] [place] [address] Sigifredo Brunner DPRodolfo [address] [place], [place] [id number] [facility] Start: 12-16-2024 Influenza vaccination Influenza Vacc ine (#1) [facility] Start: 12-10-2024 Urine screening for protein Diabetes: Urine Protein Screening [facility] Start: 12-05-2024 End: 12-05-2024 Patient encounter procedure 12/05/2024 2:00 PM EDT [facility] [address] [place] [id number] Kenny Horton MD [address] [place] [address] [facility] Start: 12-03-2024 Hemoglobin A1c measurement Diabetes: Hemoglobin A1C [facility] Start: 10-28-2024 End: 10-28-2024 Patient encounter procedure 10/28/2024 3:15 PM EDT Procedure Visit [facility] [address] [place] [phone] Sigifredo Brunner DP [address] [place], [place] [id number] Arrived [facility] Comment on above: Arrived Start: 08-19-2024 End: 08-19-2024 Patient encounter procedure 08/19/2024 3:15 PM EDT Procedure Visit [facility] [address] [place] [phone] Sigifredo Brunner [facility] [address] [place] [address] [facility] Start: 06-07-2024 Hemoglobin A1c measurement Diabetes: Hemoglobin A1C [facility] Start: 06-06-2024 End: 06-06-2024 Patient encounter procedure [facility] Comment on above: Arrived Start: 06-04-2024 End: 06-04-2025 Basic metabolic 1998 panel - Serum or Plasma Basic metabolic panel Lab Routine Encounter for long-term (current) use of medications Expected: 06/04/2024 (Approximate), Expires: 06/04/2025 [facility] Comment on above: Expected: 06/04/2024 (Approximate), Expires: 06/04/2025 Start: 06-04-2024 End: 06-04-2025 CBC W Auto Differential panel - Blood CBC and differential Lab Routine Encounter for long-term (current) use of medications Expected: 06/04/2024 (Approximate), Expires: 06/04/2025 [facility] Comment on above: Expected: 06/04/2024 (Approximate), Expires: 06/04/2025 Start: 06-04-2024 End: 06-04-2025 Hemoglobin A1c/Hemoglobin.total in Blood Hemoglobin A1c Lab Routine Type 2 diabetes mellitus with hyperglycemia, without long-term current use of insulin ([facility]) Expected: 06/04/2024 (Approximate), Expires: 06/04/2025 [facility] Work Phone: Comment on above: Expected: 06/04/2024 (Approximate), Expires: 06/04/2025 Start: 06-04-2024 End: 06-04-2025 Hepatic function 2000 panel - Serum or Plasma Hepatic function panel Lab Routine Encounter for long-term (current) use of medications Expected: 06/04/2024 (Approximate), Expires: 06/04/2025 [facility] Comment on above: Expected: 06/04/2024 (Approximate), Expires: 06/04/2025 Start: 06-04-2024 End: 06-04-2025 Lipid 1996 panel - Serum or Plasma Lipid panel Lab Routine Dyslipidemia ([facility]) Expected: 06/04/2024 (Approximate), Expires: 06/04/2025 [facility] Comment on above: Expected: 06/04/2024 (Approximate), Expires: 06/04/2025 Start: 06-04-2024 End: 06-04-2025 Prostate specific Ag [Mass/volume] in Serum or Plasma PSA Lab Routine Screening PSA (prostate specific antigen) Expected: 06/04/2024 (Approximate), Expires: 06/04/2025 [facility] Comment on above: Expected: 06/04/2024 (Approximate), Expires: 06/04/2025 Start: 05-22-2024 End: 05-22-2024 Patient encounter procedure 05/22/2024 3:15 PM EST Procedure Visit [facility] [address] [facility] [place] [address] Sigifredo Brunner DPM [address] [facility] [facility] [place] [address] [facility] Start: 03-05-2024 End: 03-05-2024 Patient encounter procedure [facility] Comment on above: Arrived Start: 02-20-2024 End: 02-20-2024 Patient encounter procedure [facility] Comment on above: Arrived Start: 12-17-2023 Influenza vaccination Influenza Vacc ine (#1) [facility] Start: 05-01-2023 Urine screening for protein Diabetes: Urine Protein Screening [facility] Start: 1967 Pneumococcal Vaccine : 65+ Years (1 of 2 - PCV) Pneumococcal Vaccine: 65+ Years (1 of 2 - PCV) [facility] Start: 1954 Pneumococcal Vaccine : 65+ Years (1 of 2 - PCV) Pneumococcal Vaccine: 65+ Years (1 of 2 - PCV) [facility] Start: 1950 Hemoglobin A1c measurement Diabetes: Hemoglobin A1C [facility] Start: 1950 Screening for malign ant neoplasm of colon [facility] Pulmonary function report Pulmonary Function Test Imaging Routine Chronic obstructive pulmonary disease, unspecified COPD type ([facility]) Ordered: 06/06/2024 [facility] Work Phone: Comment on above: Ordered: 06/06/2024 Payers Date Payer Category Payer Medicare HU[employer]NA MEDICARE ADVANTAGE HUMANA MEDICARE [id number] 2022-Present [address] [place] [id number] 2022 Medicare (Managed Care) HUMANA EDICARE ADVANTAGE [id number] 1959 Medicare [id number] 1948 Unknown [id number] 2.16.840.1.623907.3.579. 2.593 1948 Unknown [id number] 2.16.840.1.481890.3.579. 2.593 1948 Unknown [id number] 2.16.840.1.571976.3.579. 2.593 1948 Unknown [id number] 2.16.840.1.085648.3.579. 2.1286 1948 Unknown [id number] 2.16.840.1.851986.3.579. 2.1286 1948 Unknown [id number] 2.16.840.1.050142.3.579. 2.1286 1948 Unknown [id number] 2.16.840.1.420626.3.579. 2.1259 1948 Unknown [id number] 2.16840.1.819082.3.579. 2.1259 1948 Unknown [id number] 2.16840.1.319387.3.579. 2.1259 1948 Unknown [id number] 2.16.840.1.918426.3.579. 2.1259 1948 Unknown [id number] 2.16.840.1.654218.3.579. 2.1259 1948 Unknown [id number] 2.16.840.1.307342.3.579. 2.1259 1948 Unknown [id number] 2.16.840.1.499372.3.579. 2.1259 1948 Unknown [id number] 2.16.840.1.822088.3.579. 2.1259 1948 Unknown [id number] 2.16.840.1.048670.3.579. 2.1259 1948 Unknown [id number] 2.16.840.1.777063.3.579. 2.1259 Social History Date Type Detail Facility Start: [facility] History of tobacco use Cigarette Smoker [facility] Start: 11-20-2023 Tobacco use and exposure Smoke less tobacco non-user [facility] Start: 12-04-2023 End: 10-28-2024 Alcoholic beverage intake Lifetime non-drinker (finding) [facility] Start: 12-04-2023 End: 06-06-2024 [facility] Start: 12-04-2023 End: 06-06-2024 Tobacco use panel [facility] Start: 03-02-2023 Tobacco Comment Start smoking at age 7 [facility] Start: 11-24-2022 Alcohol Comment Caffeine intak e: 3-4 cups per day [facility] Start: 1950 Sex assigned at Not on file [facility] Clinical Notes 12-11-2023 to 10-28-2024 Sigifredo Brunner DPM - 10/28/2024 3:15 PM EDTPatient Reyna Horton MD - 06/06/2024 2:10 PM Vivian Horton MD - 06/06/2024 2:10 PM Vivian Horton MD - 06/06/2024 2:10 PM EST Note Date & Type Note Facility 10-28-2024 History of Present illness Narrative Images from [...] mouth Daily, Disp: , Rfl: Glucose Blood (about.me BLOOD GLUCOSE TEST ), , Disp: , [...] EXAMINATION: Alert and oriented. Pleasant disposition. Wearing [email or web address] footwear. His spouse, Leydi is present. FOOT [...] Sigifredo Brunner DPM documented in this encounter [facility] 10-28-2024 Instructions Sigifredo Brunner DPM - 10/28/2024 3:15 PM EDT As noted documented in this encounter [facility] 06-06-2024 History of Present illness Narrative Associated Problem(s): Type 2 diabetes mellitus with polyneuropathy (CMS/HCC) Occasional symptoms but mild and monitor. Associated Problem(s): Type 2 diabetes mellitus with hyperglycemia, without long-term current use of insulin (CMS/HCC) Reports BS stable and last A1C 7.9. Stick to ADA diet and limit carbs. 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 Associated Problem(s): Major depressive disorder, recurrent episode, mild (HCC) (CMS/HCC) Doing well without medication and monitor. Associated Problem(s): COPD (chronic obstructive pulmonary disease) (CMS/HCC) Check PFTs. Stressed need to stop smoking. Associated Problem(s): Benign hypertension (CMS/HCC) BP elevated today but reports normal at home and monitor PRN. Images from the original note were not included. Subjective Patient ID: Kj Barros is a 73 y.o. male who presents for Follow-up (3 m). Follow up DM, HTN, depression, neuropathy, and dementia. Recent A1C 7.9. Taking medication daily. Tries to eat well and stick to ADA diet. Denies signs of elevated BS such as polyuria, polyphagia or polydipsia. Checking BP PRN and reports typically controlled. BP elevated today. Taking medication daily and tolerating without side effects. Depression stable without medication. Occasional symptoms and at times down and sad but mild. Dementia stable. Reports continued forgetfulness and confusion. At times forgets people and seems confused. Not able to remember names or places. Forgets conversations. Aware he's getting forgetful and causing depression. No further hallucinations. Overall feels like symptoms tolerable and doesn't want medication. Neuropathy stable. Mild pain and burning in feet and worse after walking and in evening. Overall symptoms tolerable. Previously diagnosed with COPD. Continues to smoke. C/o mild SOB with exertion. Review of Systems Constitutional: Negative for fatigue. [...] of insulin (CMS/HCC) - Primary Reports BS stable and last A1C 7.9. Stick to ADA diet and limit carbs. Benign hypertension (CMS/HCC) BP elevated today but reports normal at home and monitor PRN. Major depressive disorder, recurrent episode, mild (HCC) (CMS/HCC) Doing well without medication and monitor. 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 (CMS/HCC) Symptoms mild and monitor. Type 2 diabetes mellitus with polyneuropathy ([facility]) Occasional symptoms but mild and monitor. COPD (chronic obstructive pulmonary disease) ([facility]) Check PFTs. Stressed need to stop smoking. Relevant Orders Pulmonary Function Test documented in this encounter [facility] 06-04-2024 Note Cardiology Clinic No te Chief Complaint: Patient here for 6 mo follow up CAD s/p CABG, hypertension, and hyperlipidemia. He's due to routine annual CTA chest in October 2024. doesn't think he's taking lisinopril or metoprolol due to hypotension. HPI: Kj Barors is a 73 y.o. male with a past medical history including HTN, HLD, COPD, and CAD s/p CABG in 2010. 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 Patient presents today for follow-up. Patient here for 6 mo follow up CAD s/p CABG, hypertension, and hyperlipidemia. He's due to routine annual CTA chest in October 2024. doesn't think he's taking lisinopril or metoprolol due to hypotension, which was noted during previous hospitalization. 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 He is doing well. He denies any cardiac complaints or concerns. No chest pain or shortness of breath. No edema, orthopnea, paroxysmal nocturnal dyspnea. states blood pressure is well-controlled at home. He continues to smoke. Cardiology ROS: 10 point ROS is performed [...] cigarettes. He has never used smokeless tobacco. He [...] 81 mg by mouth in the morning. lisinopril 5 mg tablet Take 5 mg by mouth in the morning. metFORMIN (Glucophage) 500 mg tablet Take 500 mg by mouth with breakfast and with evening meal. metoprolol succinate XL (Toprol-XL) 25 mg 24 hr tablet Take 25 mg by mouth in the morning and at bedtime. Do not crush or chew. rosuvastatin (Crestor) 40 mg tablet Take 1 tablet (40 mg) by mouth at bedtime. 90 tablet 3 No current facility-administered medications on file prior to visit. Allergies Patient has no known allergies. Physical Exam VITAL SIGNS: There were no vitals taken for this visit. Constitutional: Well developed, Well nourished, No acute [...] s/p CABG: no angina or anginal equivalents. -HTN: well controlled -HLD: On resuvastatin -Tobacco abuse -Ectasia of aorta Plan: -Continue Aspirin, beta andree for CAD. Continue resuvastatin 40 mg daily for CAD and HLD -I again spent 7 minutes counseling the patient on the importance of smoking cessation. I emphasized the risk of continued smoking. I offered the patient various resources. Patient respectfully declines at this time. -Repeat CT chest scheduled -Patient to follow up with PCP/pulmonary regarding pulmonary noduels -Optimize medical management -Aggressive risk factor modification -Plan of care discussed with patient. All questions were answered. Patient voices understanding and is agreeable with current plan. -Patient was educated on red flag symptoms. Strict return precautions were provided. Patient verbalizes understanding -Follow-up in cardiology clinic in 6 months, or sooner as needed Med Paz MD Interventional Cardiology [facility] 06-04-2024 History of Present illness Narrative Order in chart, please fax. documented in this encounter [facility] 05-22-2024 History of Present illness Narrative Images [...] Sigifredo Brunner DPM documented in this encounter [facility] 03-05-2024 History of Present illness Narrative Associated Problem(s): Benign hypertension (CMS/HCC) BP normal and monitor PRN. Associated Problem(s): Major depressive disorder, recurrent episode, mild (HCC) (CMS/HCC) Doing well without medication and monitor. 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 Associated Problem(s): Type 2 diabetes mellitus with hyperglycemia, without long-term current use of insulin ([facility]) Reports BS controlled and last A1C 6.4. [...] mild and monitor. documented in this encounter [facility] 02-20-2024 History of Present illness Narrative Images [...] the morning., Disp: , Rfl: Glucose Blood (about.me BLOOD GLUCOSE TEST ), , Disp: , [...] Sigifredo Brunner DPM documented in this encounter [facility] 02-20-2024 Instructions Sigifredo Brunner DPM - 02/20/2024 3:15 PM EST As noted documented in this encounter [facility] 01-17-2024 Telephone encounter Note Error [facility] 01-17-2024 Miscellaneous Notes Error documented in this encounter [facility] 12-11-2023 Note Cardiology Clinic No te Chief Complaint: establish care HPI: Kj Barros is a 72 y.o. male with a past medical history including HTN, HLD, COPD, and CAD s/p CABG in 2010. 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 Patient presents today for [...] in 6 months, or sooner as needed Med Paz MD Interventional Cardiology [facility] Evaluation note Diagnosis Type 2 diabetes mellitus with hyperglycemia, without long-term current use of insulin (CMS/HCC)- Primary Benign hypertension (CMS/HCC) Essential hypertension, benign Major depressive disorder, recurrent episode, moderate (CMS/HCC) Major depressive disorder, recurrent episode, moderate Senile dementia with behavioral disturbance (CMS/HCC) Other fatigue Atherosclerosis of [place] coronary artery of [place] heart without angina pectoris (CMS/HCC) History of [...] toenail, left foot documented in this encounter [facility] Diagnosis Type 2 diabetes mellitus with hyperglycemia, without long-term current use of insulin (CMS/HCC)- Primary Benign hypertension (CMS/HCC) Essential hypertension, benign Major depressive disorder, recurrent episode, moderate (CMS/HCC) Major depressive disorder, recurrent episode, moderate Senile dementia with behavioral disturbance (CMS/HCC) Other fatigue Atherosclerosis of [place] coronary artery of [place] heart without angina pectoris (CMS/HCC) History of [...] behavioral disturbance (CMS/HCC) [facility] Diagnosis Hyponatremia Hyposmolality and/or hyponatremia [facility] Diagnosis Type 2 diabetes mellitus with hyperglycemia, without long-term current use of insulin (CMS/HCC)- Primary Benign hypertension (CMS/HCC) Essential hypertension, benign Major depressive disorder, recurrent episode, moderate (CMS/HCC) Major depressive disorder, recurrent episode, moderate Senile dementia with behavioral disturbance (CMS/HCC) Other fatigue Atherosclerosis of [place] coronary artery of [place] heart without angina pectoris (CMS/HCC) History of [...] toenail, left foot documented in this encounter [facility]* Diagnosis Type 2 diabetes mellitus with hyperglycemia, without long-term current use of insulin (CMS/HCC)- Primary Benign hypertension (CMS/HCC) Essential hypertension, benign Major depressive disorder, recurrent episode, moderate (CMS/HCC) Major depressive disorder, recurrent episode, moderate Senile dementia with behavioral disturbance (CMS/HCC) Other fatigue Atherosclerosis of [place] coronary artery of [place] heart without angina pectoris (CMS/HCC) History of [...] uncontrolled 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 (CMS/HCC) Screening PSA (prostate specific antigen)- Primary Special screening for malignant neoplasm of prostate Type 2 diabetes mellitus with hyperglycemia, without long-term current use of insulin (CMS/HCC) Dyslipidemia (CMS/HCC) Other and unspecified hyperlipidemia Encounter for long-term (current) use of medications Encounter for long-term (current) use of other medications documented in this encounter [facility]* Diagnosis Type 2 diabetes mellitus with hyperglycemia, without long-term current use of insulin (CMS/HCC)- Primary Benign hypertension (CMS/HCC) Essential hypertension, benign Major depressive disorder, recurrent episode, moderate (CMS/HCC) Major depressive disorder, recurrent episode, moderate Senile dementia with behavioral disturbance (CMS/HCC) Other fatigue Atherosclerosis of [place] coronary artery of [place] heart without angina pectoris (CMS/HCC) History of [...] uncontrolled 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 (CMS/HCC) Type 2 diabetes mellitus with hyperglycemia, without long-term current use of insulin (CMS/HCC)- Primary Benign hypertension (CMS/HCC) Essential hypertension, benign Chronic obstructive pulmonary disease, unspecified COPD type (CMS/HCC) Type 2 diabetes mellitus with polyneuropathy (CMS/HCC) Type II or unspecified type diabetes mellitus with neurological manifestations, not stated as uncontrolled Major depressive disorder, recurrent episode, mild (HCC) (CMS/HCC) Major depressive disorder, recurrent episode, mild 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 (CMS/HCC) documented in this encounter [facility]* Diagnosis Type 2 diabetes mellitus with hyperglycemia, without long-term current use of insulin (HCC)- Primary Benign hypertension Essential hypertension, benign Major depressive disorder, recurrent episode, moderate (HCC) Major depressive disorder, recurrent episode, moderate Senile dementia with behavioral disturbance (HCC) Other fatigue Atherosclerosis of [place] coronary artery of [place] heart without angina pectoris History of coronary artery bypass graft Postsurgical aortocoronary bypass status Dyslipidemia Other and unspecified hyperlipidemia Encounter for long-term (current) use of medications Encounter for long-term (current) use of other medications Screening PSA (prostate specific antigen) Special screening for malignant neoplasm of prostate Transient alteration of awareness- Primary Visual hallucinations Psychophysical visual disturbances Metabolic encephalopathy Senile dementia with behavioral disturbance (HCC) Encounter for long-term (current) use of medications Encounter for long-term (current) use of other medications Benign hypertension Essential hypertension, benign Metabolic encephalopathy- Primary 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 (HCC) Type 2 diabetes mellitus with hyperglycemia, without long-term current use of insulin (HCC) Benign hypertension Essential hypertension, benign Major depressive disorder, recurrent episode, mild Major depressive disorder, recurrent episode, mild Hyponatremia- Primary Hyposmolality and/or hyponatremia 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 (HCC) Benign hypertension Essential hypertension, benign Type 2 diabetes mellitus with hyperglycemia, without long-term current use of insulin (HCC) Type 2 diabetes mellitus with hyperglycemia, without long-term current use of insulin (HCC)- Primary Benign hypertension Essential hypertension, benign Major depressive disorder, recurrent episode, mild Major depressive disorder, recurrent episode, mild 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 (HCC) Type 2 diabetes mellitus with polyneuropathy (HCC) Type II or unspecified type diabetes mellitus with neurological manifestations, not stated as uncontrolled Encounter for long-term (current) use of medications Encounter for long-term (current) use of other medications Colon cancer screening Special screening for malignant neoplasms, colon Type 2 diabetes mellitus with hyperglycemia, without long-term current use of insulin (HCC)- Primary Benign hypertension Essential hypertension, benign Major depressive disorder, recurrent episode, mild Major depressive disorder, recurrent episode, mild Type 2 diabetes mellitus with polyneuropathy (HCC) Type II or unspecified type diabetes mellitus with neurological manifestations, not stated as uncontrolled 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 (HCC) Type 2 diabetes mellitus with hyperglycemia, without long-term current use of insulin (HCC)- Primary Benign hypertension Essential hypertension, benign Chronic obstructive pulmonary disease, unspecified COPD type (HCC) Type 2 diabetes mellitus with polyneuropathy (HCC) Type II or unspecified type diabetes mellitus with neurological manifestations, not stated as uncontrolled Major depressive disorder, recurrent episode, mild Major depressive disorder, recurrent episode, mild 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 (HCC) Dermatophytosis of nail- Primary Dystrophic nail Other [...] section and content) DATE CREATED AUTHOR 10/06/2017 [facility] DATE CREATED AUTHOR AUTHOR'S ORGANIZ ATION 08/01/2022 [facility] DATE CREATED AUTHOR AUTHOR'S ORGANIZ ATION 05/29/2023 [facility] DATE CREATED AUTHOR AUTHOR'S ORGANIZ ATION 07/17/2023 [facility] DATE CREATED AUTHOR AUTHOR'S ORGANIZ ATION 06/08/2024 [facility] DATE CREATED AUTHOR AUTHOR'S ORGANIZ ATION 06/08/2024 [facility] Teams (unrecognized sec tion and content) Coater Relationship Specialty Start Date End Date Kenny Horton MD [address] [place] [phone] PCP - General Family Medicine 06/28/23 [employer] Relationship Specialty Start Date End Date Kenny Hotron MD [address] [place] [phone] PCP - General Family Medicine 06/28/23 [employer] Relationship Specialty Start Date End Date Kenny Horton MD [address] [place] [phone] PCP - General Family Medicine 06/28/23 Co[employer] Relationship Specialty Start Date End Date Kenny Horton MD [address] [place] [phone] PCP - General Family Medicine 06/28/23 Coater Relationship Specialty Start Date End Date Kenny Horton MD [address] [place] [address] PCP - General Family Medicine 06/28/23 Coater Relationship Specialty Start Date End Date Kenny Horton MD [address] [place] [address] PCP - General Family Medicine 06/28/23 Coater Relationship Specialty Start Date End Date Kenny Horton MD [address] [place] [phone] PCP - General Family Medicine 06/28/23 Coater Relationship Specialty Start Date End Date Kenny Horton MD [address] [place] [phone] PCP - General Family Medicine 06/28/23 Coater Relationship Specialty Start Date End Date Kenny Horton MD [address] [place] [phone] PCP - General [facility] 06/28/23 Coater Relationship Specialty Start Date End Date Kenny Horton MD [address] [place] [phone] PCP - General Family Medicine 06/28/23 Coater Relationship Specialty Start Date End Date Kenny Horton MD [address] [place] [phone] PCP - General [facility] 06/28/23 Coater Relationship Specialty Start Date End Date Kenny Horton MD [address] [place] [phone] PCP - General Family Medicine 06/28/23 Coater Relationship Specialty Start Date End Date Kenny Horton MD [address] [place] [phone] PCP - General Family Medicine 06/28/23 Reason [...] A1C: 6.4/Lv Dr. Horton 03/05/2024 SS: 9.5W Reason Comments Toenail Care Established patient presents today for nail care and callus care. FOR RECORDS PERTAINING TO PATIENTS WHO ARE [...] BE BASED ON THE PRIMARY CLINICAL RECORDS. [employer] provides no warranty or guarantee of the accuracy or completeness of information in this document.
[2024-10-29 14:16] LABS: Estimated GFR (African America >60 (>=60 mL/min/1.73m^2); Estimated GFR (Non-African Ame >60 (>=60 mL/min/1.73m^2)
== END 2024-10-29 13:42 | disposition home or self-care (01) ==
LOC: LAB 13:42
PROVIDERS: PCP Family Medicine; Visit Provider Internal Medicine Interventional Cardiology
DX: I71.9 Aortic aneurysm of unspecified site, without rupture (principal)
CPT/HCPCS: 36415; 71275; 82565; Q9967

== ENCOUNTER 2024-11-27 09:29 | Outpatient (OUT) | payer MEDICARE, SELFPAY ==
--- OUTSIDE RECORDS SUMMARY | 2024-11-27 09:31 | XMS_ITS | Clinical Summary ---
Author Organization [facility] Address [address] [place] [address] Care Team Providers Care Supervisor Intelligence Analyst Name Role Phone Kenny rBown MD Primary Care Provider Allergies No known active allergies Medications aspirin 81 mg EC tablet Take 81 mg by mouth in the morning. Active metFORMIN (Glucophage) 500 mg tablet Take 500 mg by mouth with breakfast and with evening meal. Active lisinopril 5 mg tablet Take 5 mg by mouth in the morning. Active ARIPiprazole (Abilify) 2 mg tablet Take 2 mg by mouth at bedtime. 3 Active rosuvastatin (Crestor) 40 mg tabletIndication s:Coronary artery disease with angina pectoris, unspecified vessel or lesion type, unspecified whether [place]orge or transplanted heart Take 1 tablet (40 mg) by mouth at bedtime. 90 tablet 3 4 12/11/19 25 Active sodium chloride 1,000 mg tablet Take 1 g by mouth once daily as directed. Active QUEtiapine (SEROquel) 25 mg tablet Take 25 mg by mouth at bedtime. 4 Active isosorbide mononitrate ER (Imdur) 30 mg 24 hr tabletIndication s:Coronary artery disease involving [facility] coronary artery of [place] heart with other form of angina pectoris,Essenti al hypertension Take 1 tablet (30 mg) by mouth in the morning. Do not crush or chew. 90 tablet 3 5 11/05/19 26 Active metoprolol succinate XL (Toprol-XL) 25 mg 24 hr tabletIndication s:Coronary artery disease involving [facility] coronary artery of [facility] heart with other form of angina pectoris,Essenti al hypertension Take 1 tablet (25 mg) by mouth in the morning. Do not crush or chew. 90 tablet 3 07/2111/05/19 26 Active metoprolol succinate XL (Toprol-XL) 25 mg 24 hr tablet Take 25 mg by mouth in the morning and at bedtime. Do not crush or chew. 11/05/19 25 Discontin ued(Dose adjustmen t) Active Problems Problem Noted Date Diagnosed Date COPD (chronic obstructive pulmonary disease) Hyponatremia 06/28/2023 Benign hypertension 04/24/2023 06/02/2023 Overview (06/02/2023): Last Assessment & Plan: BP controlled and monitor PRN. Coronary atherosclerosis of [place] coronary shahzad ry 04/24/2023 06/02/2023 DDD (degenerative disc disease), lumbar 04/24/19 24 06/02/2023 Dyslipidemia 04/24/2023 06/02/2023 Encounter for long-term (current) use of medicat ions 04/24/2023 06/02/2023 Major depressive disorder, recurrent episode, mo derate 04/24/2023 06/02/2023 Overview (06/02/2023): Last Assessment & Plan: Continued symptoms and discussed options. Patient does not want to adjust medication and monitor. Other fatigue 04/24/2023 06/02/2023 Overview (06/02/2023): Last Assessment & Plan: Severe fatigue and history of CAD with CABG. Check stress test. Persistent disorder of initiating or maintaining sleep 04/24/2023 06/02/2023 Senile dementia with behavioral disturbance 11/202306/02/2023 Overview (06/02/2023): Last Assessment & Plan: Continued forgetfulness and occasional hallucinations but declined adjusting medication. Monitor. Major depressive disorder, recurrent episode, mi ld 04/24/2023 Screening PSA (prostate specific antigen) 2023 Type 2 diabetes mellitus with polyneuropathy 01/ 11/2023 Type 2 diabetes mellitus wit hout complication, without long-term current use of insulin 11/24/2022 01/23/2023 Type 2 diabetes mellitus wit h hyperglycemia, without long-term current use of insulin 11/24/2022 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 01/23/2023 Thrombocytopenia 06/15/2017 01/23/2023 Undescended left testicle 06/15/20172022 Encounters Date Type Department Care Team Description 11/04/2024 2:15 PM EDT Office Visit [facility] [address] [place] [facility] [place] [address] Suman Phillips MD Coronary artery disease involving [facility] coronary artery of [place] heart with other form of angina pectoris (Primary Dx); Essential hypertension; Bicuspid aortic valve; Nonrheumatic aortic valve insufficiency; Aneurysm of ascending aorta without rupture; History of coronary artery bypass surgery; Mixed hyperlipidemia 10/30/2024 Abstract [facility] [address] [place] [facility] [place] [address] Suman Phillips MD 10/30/2024 Abstract [facility] [address] [place] [address] Suman Phillips MD 10/11/2024 Orders Only [facility] [address] [place] [address] Yi Guerra MA Aortic aneurysm without rupture, unspecified portion of aorta (Primary Dx); Pre-procedural examination from Last 3 Months Family History Medical History Relation Name Comments Heart attack Maternal Grandfather Relation Name Status Comments Father Maternal Grandfather Mother Social History Tobacco Use Types Packs/Day Years Used Date Smoking Tobacco: Every Day Cigarettes Smokeless Tobacco: Never Tobacco Cessation:Ready to Q uit: Not Asked; Counseling Given: Not Answered Alcohol Use Standard Drinks/Week Comments Not Currently 0 (1 standard drink = 0.6 oz pur e alcohol) [place] Safety & Environment Answer Date Rec orded Fear of Current or Ex-Partner Not on file Emotionally Abused Not on file 06/08/2023 Physically Abused Not on file 06/08/2023 Sexually Abused Not on file 06/08/2023 Physically or Sexually Abused Not on file Sex and Gender Information Value Date Recorded Sex Assigned at Male 10/23/2024 3:17 PM EDT Legal Sex Male 9:38 AM EDT Gender Identity Male 10/23/2024 3:17 PM EDT Sexual Orientation Heterosexual or Straight 12/2024 3:17 PM EDT Last Filed Vital Signs Vital Sign Reading Time Taken Comments Blood Pressure 145/73 11/04/2024 2:42 PM EDT Pulse 81 11/04/2024 2:42 PM EDT Temperature - - Respiratory Rate - - Oxygen Saturation 95% 11/04/2024 2:42 PM EDT Inhaled Oxygen Concentration - - Weight 78.5 kg (173 lb) 11/04/2024 2:42 PM EDT Height 170.2 cm (5' 7 ) 11/04/2024 2:42 PM EDT Body Mass Index 27.1 11/04/2024 2:42 PM EDT Plan of Treatment Upcoming Encounters Date Type Department Care Team (Late st Contact Info) Description 01/06/2025 3:00 PM EDT Office Visit [facility] [address] [place] [address] Suman Phillips MD [address] [facility] [place] [address] Health Maintenance Due Date Last Done Comments Diabetes: Hemoglobin A1C 1950 Medicare Annual Wellness (AWV) 1950 Diabetes: Retinopathy Screening 1958 Depression Screening 1960 Diabetes: Urine Protein Screening 1967 Pneumococcal Vaccine: 50+ Ye ars (1 of 2 - PCV) 1967 Adult Tetanus 1970 Zoster Vaccines (1 of 2) 1998 Fall Risk Screening 2013 COVID-19 Vaccine ( - 2023-2 5 season) 2023 Influenza Vaccine (#1) 2024 HIB Vaccines Aged Out No longer eligi ble based on patient's age to complete this topic HPV Vaccines Aged Out No longer eligi ble based on patient's age to complete this topic IPV Vaccines Aged Out No longer eligi ble based on patient's age to complete this topic Meningococcal B Vaccine Aged Out No l onger eligible based on patient's age to complete this topic Meningococcal Vaccine Aged Out No meeta jona eligible based on patient's age to complete this topic Rotavirus Vaccines Aged Out No longer eligible based on patient's age to complete this topic Insurance [employer] MED[employer] ADVANTAGE Care Teams Supervisor Intelligence Analyst Relationship Specialty Start Date End Date Kenny Brown MD [address] [place] [address] PCP - General 08/15/22
--- OUTSIDE RECORDS SUMMARY | 2024-11-27 09:31 | XMS_ITS | Encounter Summary ---
Author Organization [facility] Address [address] [place] [address] Care Team Providers Care Clinical Research Coordinator Name Role Phone Kenny Brown MD Primary Care Provider [phone] Kenny Brown MD Primary Care Provider [phone] Encounter Details Date Type Department Care Team (Late Contact Info) Description 05/04/2023 Orders Only [facility] [address] [place] [address] Kenny Brown MD [address] [place] [address] Social History Tobacco Use Types [...] 12/05/2024 2:00 PM EDT Office Visit [facility] [address] [place] [address] Kenny Brown MD [address] [place] [address] 02/17/2025 3:15 PM EST Procedure Visit [facility] [address] [place] [address] Sigifredo Brunner DPM [address] [place] [address] documented as of this encounter [...] on filedocumented in this encounter Care Teams Clinical Research Coordinator Relationship Specialty Start Date End Date Kenny Brown MD PCP - General Family Medicine 11/09/22 06/27/23 Kenny Brown MD [address] [place] [address] PCP - General Family Medicine 06/28/23 documented as of this encounter
--- OUTSIDE RECORDS SUMMARY | 2024-11-27 09:31 | XMS_ITS | Encounter Summary ---
Author Organization [facility] Address [address] [facility] [place] [address] Care Team Providers Care Leaf Binner Name Role Phone Kenny Brown MD Primary Care Provider [phone] Encounter Details Date Type Department Care Team (Late Contact Info) Description 08/03/2023 Orders Only [facility] [address] [place] [address] Shaikh Godinez MD [address] [place] [address] Social History Tobacco Use Types Packs/Day Years [...] Office Visit [facility] [address] [place] [address] Kenny Brown MD [address] [place] [address] 02/17/2025 3:15 PM EST Procedure Visit [facility] [address] [place] [address] Sigifredo Brunner, DPRodolfo [address] [place], [place] [address] documented as of this encounter Procedures Procedure [...] on filedocumented in this encounter Care Teams Leaf Binner Relationship Specialty Start Date End Date Kenny Brown MD [address] [place] [address] PCP - General Family Medicine 06/28/23 documented as of this encounter
--- OUTSIDE RECORDS SUMMARY | 2024-11-27 09:31 | XMS_ITS | Encounter Summary ---
Author Organization [facility] Address [address] [place] [address] Care Team Providers Care Parent Aide Name Role Phone Kenny Brown MD Primary Care Provider [phone] Encounter Details Date Type Department Care Team [...] Upcoming Encounters Date Type Department Care Team ([facility] Contact Info) Description 12/05/2024 2:00 PM EDT Office Visit [facility] [address] [place] [address] Kenny Brown MD [address] [place] [address] 02/17/2025 3:15 PM EST Procedure Visit [facility] [address] [place] [address] Sigifredo Brunner DPM [address] [place], [place] [phone] (work) documented as of this encounter Procedures Procedure Name Priority Date/Time Associated Diagnosis Comments CT ANGIOGRAM CHEST 11/06/2023 1: 06 PM EDT documented in this encounter Results * CT angiogram chest (11/06/2023 1:06 PM EDT) Anatomical Region Laterality Modality Body, Chest Computed Tomogra phy 11/06/2023 1:06 PM EDT Narrative 11/06/2023 1:09 PM EDT The [address] [address] [address] Scan Report Signed Patient: JAMES POPE MR#: [id number] : 1950 Acct:[id number] Age/Sex: 73 / M ADM Date: 11/03/23 Loc: LAB Attending Dr: MED VELASQUEZ Ordering Physician: MED VELASQUEZ Date of Service: 11/03/23 Procedure(s): CT angio chest Accession Number(s): [id number] cc: Kenny Brown M.D. The [address] [address] Patient Name: JAMES POPE MRN: [id number] date: 1950 Sex: M Assigned Patient Location: LAB Current Patient Location: Accession/Order Number: [id number] Exam Date: 11/03/2023 15:43 Report Date: 11/06/2023 [...] Signed By: 11/06/23 1309 DD/ 1306 TD/TT: Export Freight Specialist: Procedure Note Radiology, Radiologist, MD - 11/06/2023 [place] [address] CT Scan Report Signed Patient: JAMES POPE R#: [id number] : 1950cct:[id number] Age/Sex: 73 / MADM Date: 11/03/23 Loc: LAB Attending Dr: MED VELASQUEZ Ordering Physician: MED VELASQUEZ Date of Service: 11/03/23 Procedure(s): CT angio chest Accession Number(s): [id number] cc: Kenny Brown M.D. The [place] [id number] Patient Name: JAMES POPE MRN: [facility]:[id number] date: 1950 Sex: M Assigned Patient Location: LAB Current Patient Location: Accession/Order Number: [id number] Exam Date: 11/03/2023 15:43 Report Date: 11/06/2023 13:06 At the request of: MOHAMAD ALGHOTHANI Procedure: CT angio chest EXAMINATION: CT angio [...] PINA GOMEZ Date: 11/06/2023 13:06 Dictated By: Pian Gomez M.D. Signed By:11/06/23 1309 DD/ 1306 TD/TT: Export Freight Specialist: Generic External Data Provider IMG CT PROCEDURES Final Result documented in this encounter Visit Diagnoses Not on filedocumented in this encounter Care Teams Parent Aide Relationship Specialty Start Date End Date Kenny Brown MD [address] [place] [address] PCP - General Family Medicine 06/28/23 documented as of this encounter
--- OUTSIDE RECORDS SUMMARY | 2024-11-27 09:31 | XMS_ITS | Encounter Summary ---
Author Organization [facility] Address [address] [place] [address] Care Team Providers Care Mobile Marketing Manager Name Role Phone Kenny Brown MD Primary Care Provider [phone] Encounter Details Date Type Department Care Team ([facility] Contact Info) Description 07/31/2023 Abstract [facility] [address] [place] [address] Kenny Brown MD [address] [place] [address] Social History Tobacco Use Types Packs/Day Years [...] Upcoming Encounters Date Type Department Care Team ([facility] Contact Info) Description 12/05/2024 2:00 PM EDT Office Visit [facility] [address] [place] [address] Kenny Brown MD [address] [place] [address] 02/17/2025 3:15 PM EST Procedure Visit [facility] [address] [place] [address] Sigifredo Brunner DPM [address] [place], [place] [address] documented as of this encounter Visit Diagnoses Not on filedocumented in this encounter Care Teams Mobile Marketing Manager Relationship Specialty Start Date End Date Kenny Brown MD [address] [place] [address] PCP - General Family Medicine 06/28/23 documented as of this encounter
--- OUTSIDE RECORDS SUMMARY | 2024-11-27 09:31 | XMS_ITS | Encounter Summary ---
Author Organization [facility] Address [address] [place] [address] Care Team Providers Care Bandage Winding Machine Operator Name Role Phone Kenny Brown MD Primary Care Provider [phone] Kenny Brown MD Primary Care Provider [phone] Encounter Details Date Type Department Care Team (Late Contact Info) Description 11/24/2022 Abstract [facility] [address] [place] [address] Sigifredo Brunner DPM [address] [place], [place] [phone] Social History Tobacco Use Types Packs/Day Years [...] 12/05/2024 2:00 PM EDT [facility] [address] [place] [address] Kenny Brown MD [address] [place] [address] 02/17/2025 3:15 PM EST Procedure Visit [facility] [address] [place] [address] Sigifredo Brunner DPRodolfo [address] [place] [address] documented as of this encounter Visit Diagnoses Not on filedocumented in this encounter Care Teams Bandage Winding Machine Operator Relationship Specialty Start Date End Date Kenny Brown MD PCP - General Family Medicine 11/09/22 06/27/23 Kenny Brown MD [address] [place] [address] PCP - General Family Medicine 06/28/23 documented as of this encounter
--- OUTSIDE RECORDS SUMMARY | 2024-11-27 09:31 | XMS_ITS | Clinical Summary ---
Author Organization [facility] Address [address] [place] [address] Care Team Providers Care Blood Bank Credit Clerk Name Role Phone Kenny Brown MD Primary Care Provider Allergies Active Allergy Reactions Criticality Noted Date Comments Bee Venom Unknown 11/24/2022 Medications buffered aspirin (Bufferin Low Dose) 81 MG tablet Active Glucose Blood (DxTerityIGY BLOOD GLUCOSE TEST ) Act elvia cholecalciferol [...] controlled and monitor PRN. Coronary atherosclerosis of pokagon coronary shahzad ry 04/24/2023 DDD (degenerative disc [...] Encounters Date Type Department Care Team Description 10/30/2024 Clinisync Result Encounter [facility] External Department Unsolicited Provider, Generic External Data 10/29/2024 Clinisync Result Encounter [facility] External Department Unsolicited Provider, Generic External Data 10/28/2024 3:15 PM EDT Procedure Visit [facility] [address] [place] [address] Sigifredo Brunner DPM Dermatophytosis of nail (Primary Dx); Dystrophic nail; Pain around toenail, right foot; Pain around toenail, left foot 10/28/2024 Bamboo flowsheet [facility] [address] [place] [address] Sigifredo Brunner DPM 10/28/2024 Travel 09/30/2024 [facility] [address] [place] [address] Sigifredo Brunner DPM Advice Only (FH POD No Shows) from Last 3 Months Family History Medical [...] Description 12/05/2024 2:00 PM EDT Office Visit [facility] [address] [place] [address] Kenny Brown MD [address] [place] [address] 02/17/2025 3:15 PM EST Procedure Visit [facility] [address] [place] [address] Sigifredo Brunner DPM [address] [place], [place] [phone] Health Maintenance Due Date Last Done Comments Pneumococcal Vaccine: 65+ Ye ars (1 of 2 - PCV) 1967 Diabetes: Hemoglobin A1C 12/03/2024 06/05/2024, 0804/2023 Diabetes: Urine Protein Screening 12/10/2024 024 Influenza Vaccine (#1) 2024 Diabetes: Retinopathy Screening 02/20/2025 3 Procedures Procedure Name Priority Date/Time Associated Diagnosis Comments CT ANGIOGRAM CHEST 10/30/2024 8: 15 AM EDT TB CREATININE Routine 10/29/2024 1:54 PM EDT from Last 3 Months Results * CT angiogram chest (10/30/2024 8:15 AM EDT) Anatomical Region Laterality Modality Body, Chest Computed Tomogra phy 10/30/2024 8:15 AM EDT Narrative 10/30/2024 8:17 AM EDT [address] [address] [address] Scan Report Signed Patient: JAMES POPE MR#: [id number] : 1950 Acct:[id number] Age/Sex: 74 / M ADM Date: 10/29/24 Loc: LAB Attending Dr: WYATT STALLINGS Ordering Physician: WYATT STALLINGS Date of Service: 10/29/24 Procedure(s): CT angio chest Accession Number(s): [id number] cc: Kenny Brown M.D. [address] [address] Patient Name: JAMES POPE MRN: [facility]:[id number] date: 1950 Sex: M Assigned Patient Location: LAB Current Patient Location: Accession/Order Number: [id number] Exam Date: 10/30/2024 08:03 Report Date: 10/30/2024 08:15 At the request of: WYATT STALLINGS Procedure: CT angio chest CTA CHEST WITH CONTRAST CLINICAL HISTORY: Follow-up Aortic Aneurysm Without Rupture COMPARISON: 11/03/2023 TECHNIQUE: Spiral images were obtained through the chest following intravenous administration of 100 mL of Omnipaque 350. Images were reviewed using both narrow and wide window settings. Sagittal, coronal and 3 D volume-rendered reconstructions were performed and reviewed. This CT exam was performed using one or more following dose reduction techniques: Automated exposure control, adjustment of the mA and/or kV according to patient size, or use of iterative reconstruction technique. FINDINGS: Median sternotomy wires are noted. The heart is top normal in size. There is no pericardial effusion. There is coronary artery disease and/or stents. There is similar mild dilatation ascending aorta with diameter of 4.1 cm. The proximal descending aorta measures just under 4 cm. No dissection is identified. There is atherosclerotic plaque at the aortic arch, descending aorta and proximal great vessels. The pulmonary arteries are suboptimally opacified to assess for emboli. No pathologic lymphadenopathy is seen. There is slight dextroscoliotic curvature as well as endplate spurring at the spine. The lower posterior lungs are not included in their entirety. Minor apical scarring is noted. Minor atelectasis and/or scarring is also visualized at the lung bases. There is no additional consolidation, effusion or pneumothorax. There are a couple calcified granulomas. There is also a 7 mm subpleural nodule at the anterolateral right lower lobe which was also present on the prior. Limited cuts through the upper abdomen show additional atherosclerotic disease. There are colonic diverticula in the field of view. CT/CT angio chest IMPRESSION: SIMILAR MILDLY DILATED THORACIC AORTA. NO EVIDENCE OF DISSECTION. MINIMAL ATELECTASIS AND SCARRING. PULMONARY NODULARITY, UNCHANGED. Impression dictated by: Jolie Lester M.D. 10/30/2024 8:15 AM Dictation Location: [place] [address] Electronically authenticated by: [id number] Y Date: 10/30/2024 08:15 Dictated By: Jolie Lester M.D. Signed By: 10/30/2417 DD/ 4 TD/TT: Granite Polisher Machine: Procedure Note Radiology, Radiologist, MD - 10/30/2024 [place] [address] CT Scan Report Signed Patient: JAMES POPE R#: [id number] : 1950cct:[id number] Age/Sex: 74 / MADM Date: 10/29/24 Loc: LAB Attending Dr: WYATT STALLINGS Ordering Physician: WYATT STALLINGS Date of Service: 10/29/24 Procedure(s): CT angio chest Accession Number(s): [id number] cc: Kenny Brown M.D. The [place] [id number] Patient Name: JAMES POPE MRN: [id number] date: 1950 Sex: M Assigned Patient Location: LAB Current Patient Location: Accession/Order Number: [id number] Exam Date: 10/30/2024 08:03 Report Date: 10/30/2024 08:15 At the request of: WYATT STALLINGS Procedure: CT angio chest CTA CHEST WITH CONTRAST CLINICAL HISTORY: Follow-up Aortic Aneurysm Without Rupture COMPARISON: 11/03/2023 TECHNIQUE: Spiral images were obtained through the chest following intravenous administration of 100 mL of Omnipaque 350. Images werereviewed using both narrow and wide window settings. Sagittal, coronal and 3 D volume-rendered reconstructions were performed and reviewed. This CT examwas performed using one or more following dose reduction techniques: Automated exposure control, adjustment of the mA and/or kV according to patientsize, or use of iterative reconstruction technique. FINDINGS: Median sternotomy wires are noted. The heart is top normal insize. There is no pericardial effusion. There is coronary artery diseaseand/or stents. There is similar mild dilatation ascending aorta with diameter of4.1 cm. The proximal descending aorta measures just under 4 cm. Nodissection is identified. There is atherosclerotic plaque at the aortic arch,descending aorta and proximal great vessels. The pulmonary arteries are suboptimally opacified to assess for emboli. No pathologic lymphadenopathy is seen.There is slight dextroscoliotic curvature as well as endplate spurring at thespine. The lower posterior lungs are not included in their entirety. Minorapical scarring is noted. Minor atelectasis and/or scarring is also visualizedat the lung bases. There is no additional consolidation, effusion or pneumothorax. There are a couple calcified granulomas. There is also a 7mm subpleural nodule at the anterolateral right lower lobe which was alsopresent on the prior. Limited cuts through the upper abdomen show additional atherosclerotic disease. There are colonic diverticula in the field of view. CT/CT angio chest IMPRESSION: SIMILAR MILDLY DILATED THORACIC AORTA. NO EVIDENCE OF DISSECTION. MINIMAL ATELECTASIS AND SCARRING. PULMONARY NODULARITY, UNCHANGED. Impression dictated by: Jolie Lester M.D. 10/30/2024 8:15 AM Dictation Location: [place] [address] Electronically authenticated by: [id number] Y Date: 508:15 Dictated By: Jolie Lester M.D. Signed By:10/30/24816 DD/ TD/TT: Granite Polisher Machine: us Generic External Data Provider IMG CT PROCEDURES Final Result * [facility] CREATININE (10/29/2024 1:54 PM EDT) CREATININE 0.97 0.70 - 1.30 mg/dL [facility] EGFR-AF MAURITIAN >60 >=60 mL/min/1.7 3m 2 [facility] EGFR-NON AF MAURITIAN >60 >=60 mL/min/1.7 3m 2 [facility] 10/29/2024 1:54 PM EDT 10/29/2024 1:55 PM EDT Narrative [facility] - 10/29/2024 2:16 PM EDT Generic External Data Provider [facility] F inal Result [facility] from Last 3 Months Insurance [facility] MEDICARE ADVANTAGE Care Teams Blood Bank Credit Clerk Relationship Specialty Start Date End Date Kenny Brown MD [address] [place] [phone] PCP - General Family Medicine 06/28/23
--- OUTSIDE RECORDS SUMMARY | 2024-11-27 09:31 | XMS_ITS | Encounter Summary ---
Author Organization [facility] Address [address] [place] [address] Care Team Providers Care Manager Cardiology Name Role Phone Kenny Brown MD Primary Care Provider [phone] Kenny Brown MD Primary Care Provider [phone] Encounter Details Date Type Department Care Team (Late Contact Info) Description 05/24/2023 Orders Only [facility] [address] [address] Collins Diane MD [address], [place] [phone] Social History Tobacco Use Types Packs/Day Years [...] 12/05/2024 2:00 PM EDT Office Visit [facility] [address] [address] Kenny Brown MD [address] [place] [address] 02/17/2025 3:15 PM EST Procedure [facility] [address] [place] [address] Sigifredo Brunner DPM [address] [place] [address] documented as of this encounter [...] filedocumented in this encounter Care Teams Manager Cardiology Relationship Specialty Start Date End Date Kenny Brown MD PCP - General Family Medicine 11/09/22 06/27/23 Kenny Brown MD [address] [place] [address] PCP - General Family Medicine 06/28/23 documented as of this encounter
--- OUTSIDE RECORDS SUMMARY | 2024-11-27 09:31 | XMS_ITS | Encounter Summary ---
Author Organization [facility] Address [address] [place] [address] Care Team Providers Care Tai Chi Instructor Name Role Phone Kenny Brown MD Primary Care Provider [phone] Kenny Brown MD Primary Care Provider [phone] Encounter Details Date Type Department Care Team (Late Contact Info) Description 05/23/2023 Orders Only [facility] [address] [place] [address] Scotty Carr MD [address] [place] [address] Social History Tobacco Use Types [...] 12/05/2024 2:00 PM EDT Office Visit [facility] [address] [place] [address] eKnny Brown MD [address] [place] [address] 02/17/2025 3:15 PM EST Procedure Visit [facility] [address] [facility] [place] [address] Sigifredo Brunner DPM [address] [place], [place] [address] documented as of this encounter Procedures Procedure [...] on filedocumented in this encounter Care Teams Tai Chi Instructor Relationship Specialty Start Date End Date Kenny Brown MD PCP - General Family Medicine 11/09/22 06/27/23 Kenny Brown MD [address] [place] [address] PCP - General Family Medicine 06/28/23 documented as of this encounter
--- OUTSIDE RECORDS SUMMARY | 2024-11-27 09:31 | XMS_ITS | Clinical Summary ---
Author Organization [employer] Address [id number] [address] [place] [address] Care Team Providers Care Hospitality House Supervisor Name Role Phone Kenny Brown MD Primary Care Provider [phone] Allergies No known active allergies Medications rosuvastatin [...] 12/16/2024 Medical Devices Not on file Insurance [facility] MEDICARE Care Teams Hospitality House Supervisor Relationship Specialty Start Date End Date Kenny Brown MD PCP - General Family Medicine 05/01/18
--- OUTSIDE RECORDS SUMMARY | 2024-11-27 09:31 | XMS_ITS | Encounter Summary ---
Author Organization [facility] Address [address] [facility] [place] [address] Care Team Providers Care Annual Greenhouse Manager Name Role Phone Kenny Brown MD Primary Care Provider [phone] Encounter Details Date Type Department Care Team (Special Care Hospital Contact Info) Description 09/19/2023 Orders Only [facility] [address] [place] [address] Kenny Brown MD [address] [place] [address] Social History Tobacco Use Types Packs/Day Years [...] Office Visit [facility] [address] [place] [address] Kenny Brown MD [address] [place] [address] 02/17/2025 3:15 PM EST Procedure Visit [facility] [address] [place] [address] Sigifredo Brunner DPM [address] [address] documented as of this encounter Procedures [...] on filedocumented in this encounter Care Teams Annual Greenhouse Manager Relationship Specialty Start Date End Date Kenny Brown MD [address] [facility] [place] [address] PCP - General Family Medicine 06/28/23 documented as of this encounter
--- OUTSIDE RECORDS SUMMARY | 2024-11-27 09:31 | XMS_ITS | Encounter Summary ---
Author Organization [facility] Address [id number] [address] [place] [address] Care Team Providers Care Family Mediator Name Role Phone Kenny Brown MD Primary Care Provider [phone] Reason for Visit * Reason Onset Date Comments Hospital Follow-up 05/25/2023 Encounter Details Date Type Department Care Team (Late st Contact Info) Description 05/25/2023 Telephone [facility] Neurology [address] [place] [address] [facility] Follow-up Social History Tobacco Use Types [...] patient needs to follow up with in [place] for Dementia Evaluation. However, there are no [...] ER follow up regarding Altered Mental Status. [facility], so will need labs, EEG results, and [...] on filedocumented in this encounter Care Teams Family Mediator Relationship Specialty Start Date End Date Kenny Brown MD PCP - General Family Medicine 05/01/18 documented as of this encounter
--- OUTSIDE RECORDS SUMMARY | 2024-11-27 09:31 | XMS_ITS | Encounter Summary ---
Author Organization [facility] Address [address] [place] [address] Care Team Providers Care Felt Pad Cutter Name Role Phone Kenny Brown MD Primary Care Provider [phone] Encounter Details Date Type Department Care Team (Late Contact Info) Description 08/08/2023 Orders Only [facility] [address] [place] [address] Collins Diane MD [address] [place], [place] [address] Social History Tobacco Use Types Packs/Day Years [...] 2:00 PM EDT Office Visit [facility] [address] [place] [address] Kenny Brown MD [address] [place] [address] 02/17/2025 3:15 PM EST [facility] [address] [place] [address] Sigifredo Brunner, DPM [address] [place] [address] documented as of this encounter Procedures Procedure [...] on filedocumented in this encounter Care Teams Felt Pad Cutter Relationship Specialty Start Date End Date Kenny Brown MD [address] [place] [address] PCP - General Family Medicine 06/28/23 documented as of this encounter
--- OUTSIDE RECORDS SUMMARY | 2024-11-27 09:31 | XMS_ITS | Encounter Summary ---
Author Organization [facility] Address [address] [place] [address] Care Team Providers Care Plier Worker Name Role Phone Terrance Horton MD Primary Care Provider [phone] Terrance Horton MD Primary Care Provider [phone] Encounter Details Date Type Department Care Team (Late Contact Info) Description 05/03/2023 Clinisync Result Encounter [facility] External Department Unsolicited Terrance Horton MD [address] [place] [address] Social History Tobacco Use Types [...] Office Visit [facility] [address] [place] [address] Terrance Horton MD [address] [place] [address] 02/17/2025 3:15 PM EST Procedure [facility] [address] [place] [address] Sigifredo Brunner DPM [address] [place] [address] documented as of this encounter Procedures Procedure Name Priority Date/Time Associated Diagnosis Comments NM BRANDO PERF SPECT REST STR 05/03/2023 7:57 AM EST documented in this encounter Results * NM BRANDO PERF SPECT REST STR (05/03/2023 7:57 AM EST) Anatomical Region Laterality Modality Other 05/03/2023 7:57 AM EST Narrative 05/03/2023 7:57 AM EST [address] [address] Nuclear Medicine Report Signed Patient: JAMES POPE MR#: [id number] : 1950 Acct:[id number] Age/Sex: 72 / M ADM Date: 05/02/23 Loc: NM Attending Dr: Terrance Horton M.D. Ordering Physician: Terrance Horton M.D. Date of Service: 05/02/23 Procedure(s): NM brando perf SPECT rest str Accession Number(s): [id number] cc: Terrance Horton M.D. Patient Name: JAMES POPE MR#: [id number] : 1950 Exam Date: 05/02/2023 Ordering Doctor: [...] DEFECT: LOCATION: Basal inferior. Mid-inferior. Apical inferior. Stevenson. SIZE: Medium (3-4 segments). SEVERITY: Moderate. TYPE: [...] Signed By: 05/03/23 0757 DD/ 0757 TD/TT: Liquified Natural Gas Specialist: Procedure Note Radiology, Radiologist, - 05/03/2023 [place] [address] Nuclear Medicine Report Signed Patient: JAMES POPE LMR#: [id number] : 9Acct:[id number] Age/Sex: 72 / MADM Date: 05/02/23 Loc: [place] Attending Dr: Terrance Horton M.D. Ordering Physician: Terrance Horton M.D. Date of Service: 05/02/23 Procedure(s): NM brando perf SPECT rest str Accession Number(s): [id number] cc: Terrance Horton M.D. Patient Name: JAMES POPE MR#: [id number] : 1950 Exam Date: 05/02/2023 Ordering Doctor: [...] DEFECT: LOCATION: Basal inferior. Mid-inferior. Apical inferior. Stevenson. SIZE: Medium (3-4 segments). SEVERITY: Moderate. TYPE: [...] M.D. Signed By:05/03/23 0757 DD/ 0757 TD/TT: Liquified Natural Gas Specialist: us Terrance Horton MD [facility] Final Result documented in this encounter Visit Diagnoses Not on filedocumented in this encounter Care Teams Plier Worker Relationship Specialty Start Date End Date Terrance Horton MD PCP - General Family Medicine 11/09/22 06/27/23 Terrance Horton MD [address] [place] [address] PCP - General Family Medicine 06/28/23 documented as of this encounter
--- OUTSIDE RECORDS SUMMARY | 2024-11-27 09:33 | XMS_ITS | Encounter Summary ---
Author Organization [facility] Address [address] [place] [address] Care Team Providers Care Director Software Quality Assurance Name Role Phone Kenny Brown MD Primary Care Provider [phone] Encounter Details Date Type Department Care Team ([facility] Contact Info) Description 08/23/2023 Abstract [facility] [address] [place] [address] Ekaterina Cazares MD [address] [facility] [address] [place], [place] [address] Social History Tobacco Use Types Packs/Day Years [...] Upcoming Encounters Date Type Department Care Team ([facility] Contact Info) Description 12/05/2024 2:00 PM EDT Office Visit [facility] [address] [place] [address] Kenny Brown MD [address] [place] [address] 02/17/2025 3:15 PM EST Procedure [facility] [address] [place] [address] Sigifredo Brunner DPM [address] [facility] [place], [place] [address] documented as of this encounter Visit Diagnoses Not on filedocumented in this encounter Care Teams Director Software Quality Assurance Relationship Specialty Start Date End Date Kenny Brown MD [address] [place] [address] PCP - General Family Medicine 06/28/23 documented as of this encounter
--- OUTSIDE RECORDS SUMMARY | 2024-11-27 09:33 | XMS_ITS | Clinical Summary ---
Author Organization [facility] Address [address] [place], [place] [address] Care Team Providers Care Gauge Machine Operator Name Role Phone Kenny Brown MD Primary Care Provider [phone] Allergies No known active allergies Medications latanoprost [...] Vaccine (1 - 1-dose 75+ series) 2023 Advance Directive Discussion 04/17/2024 Influenza Vaccine (#1) 2024 Insurance [employer] MEDICARE ADVANTAGE PPO Care Teams Gauge Machine Operator Relationship Specialty Start Date End Date Kenny Brown MD [address] [place] [address] PCP - General Family Medicine 06/09/17
--- OUTSIDE RECORDS SUMMARY | 2024-11-27 09:36 | XMS_ITS | CCD ---
Author Organization [facility] Care Team Providers Care Chart Changer Name Role Phone CAREY TREVIÑO Unavailable Unavailable [...] Consulting Unavailable NADERER, KENNY Primary Care Unavailable MALAIYANVAHID, FARRUKH P Consulting Unavailable INPATIENT, TELENEUROLOGY Consulting Unavail able SHINE ELLISON Referring Unavailable NADERER, KENNY Primary Care Unavailable NADERER, KENNY Primary Care Unavailable SHINE ELLISON Referring Unavailable Naderer Kenny JEFFERS Primary Care Provider SIGIFREDO BRUNNER Attending Unavailable RUSHER, SIGIFREDO Jones Attending Unavailable NADERER, KENNY Attending Unavailable RUSHERSIGIFREDO Attending Unavailable NADERER, KENNY Attending Unavailable RUSHER, SIGIFREDO Jones Attending Unavailable NADERER, KENNY Attending Unavailable MOUKARBELWYATT Attending Unavailable AGNIESZKAHOMED NIETO Attending Unavailable MED PAZ Attending Unavailable Allergies Allergy Classification Reported Allergen(s) Allergy Type Date of Onset Reaction(s) Facility (1 source) bee venom Drug allergy (disorder) [facility] (1 source) Iodine (And Iodine Containting Drugs) Drug allergy (disorder) [facility] (20 sources) Honey bee venom Allergy to substance 11-24-2022 Unknown [facility] Medications Current Medications Medication Drug Class(es) Dates Sig (Normalized) Sig (Original) aspirin 81 mg oral tablet (20 sources) Platelet Aggregation Inhibitor, Nonsteroidal Anti-inflammatory Drug buffered aspirin (Bufferin Low Dose) 81 MG tablet Active cholecalciferol 0.05 mg oral capsule (20 sources) Vitamin D take 1 capsule by mouth once daily cholecalciferol (Vitamin D-3) 50 MCG (2000 UT) capsule Take 2,000 Units by mouth Daily Active take 1 capsule by mouth in the m orning cholecalciferol (Vitamin D-3) 50 MCG (2000 UT) capsule Take 2,000 Units by mouth in the morning. Active Glucose Blood (PRODIGY BLOOD GLUCOSE TEST ) (20 sources) Glucose Blood (P RODIGY BLOOD GLUCOSE TEST ) Active metFORMIN hydrochloride 500 mg oral tablet (20 sources) Biguanide Start: 03-22-2024 End: 03-22-2025 take [...] Active rosuvastatin calcium 20 mg oral tablet (20 sources) HMG-CoA Reductase Inhibitor Start: 03-22-2024 End: 03-22-2025 take 1 tablet by mouth once daily rosuvastatin (Crestor) 20 MG tablet Indications: Dyslipidemia Take 1 tablet (20 mg) by mouth Daily 30 tablet 11 03/22/2024 03/22/2025 Active take 1 tablet by mouth once steffi y rosuvastatin (Crestor) 20 MG tablet Take 20 mg by mouth Daily Active sodium chloride 1000 mg oral tablet (20 sources) Start: 11-15-2023 End: 11-14-2024 take 1 [...] Classification Problem Date Documented Da te Episodic/Chronic Cardiac and circulatory congenital anomalies (2 sources) Bicuspid aortic valve; 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: [Bicuspid aortic valve] Onset: 11-04-2024 Chronic Chronic obstructive pulmonary disease and bronchiectasis (8 sources) Chronic obstructive lung disease; 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: [Chronic obstructive pulmonary disease, unspecified] Onset: 06-06-2024 06-06-2024 Chronic Coagulation and hemorrhagic disorders (1 source) Thrombocytopenia, unspecified; 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: [Thrombocytopenia, unspecified] Onset: 06-15-2017 Chronic Coronary atherosclerosis and other heart disease (20 sources) Atherosclerotic heart disease of [place] coronary artery without angina pectoris; 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: [Coronary [...] Onset: 05-03-2022 Chronic Disorders of lipid metabolism (20 sources) Dyslipidemia; 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: [Hyperlipidemia, unspecified] Onset: 04-24-2023 04-24-2023 Chronic Diverticulosis and diverticulitis (1 source) Diverticulitis of large intestine without perforation or abscess without bleeding; 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: [DVTRCLI LG INT NO PERF/ABSC W/O BL] Onset: 05-03-2022 Chronic Essential hypertension (20 sources) Essential (primary) hypertension; 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: [Benign hypertension] Onset: 05-03-2022 04-24-2023 Chronic Heart valve disorders (2 sources) Nonrheumatic aortic (valve) insufficiency; 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: [Nonrheumatic aortic (valve) insufficiency] Onset: 11-04-2024 Chronic Mood disorders (20 sources) Recurrent major depressive episodes, mild ; 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: [Major depressive disorder, recurrent, mild] Onset: 04-24-2023 09-06-2023 Chronic Mycoses (3 sources) Onychomycosis due to dermatophyte ; 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: [Tinea unguium] 02-20-2024 Episodic Other aftercare (1 source) care home (current) use of aspirin; 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: [FDC CURRENT USE OF ASPIRIN] Onset: 05-03-2022 Episodic Other aftercare (1 source) 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; 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: [OTH COMBINATION MAN CURRENT DRUG THERAPY] Onset: 05-03-2022 Episodic Other aftercare (1 source) intermediate manager (current) use of oral hypoglycemic drugs; 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: [FDC USE ORAL HYPOGLYCEMIC DX] Onset: 05-03-2022 Episodic Other connective tissue disease (6 sources) Pain in toe; 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: [Pain in right toe(s)] 02-20-2024 Episodic Other gastrointestinal disorders (3 sources) Diarrhea, unspecified; 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: [DIARRHEA UNSPECIFIED] Onset: 05-01-2022 Episodic Other skin disorders (3 sources) Dystrophia unguium; 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: [Nail dystrophy] 02-20-2024 Episodic Spondylosis; intervertebral disc disorders; other back problems (20 sources) Degeneration of lumbar intervertebral disc; 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: [DDD (degenerative disc disease), lumbar] Onset: 04-24-2023 04-24-2023 Chronic Substance-related disorders (1 source) Nicotine dependence, cigarettes, uncomplicated; 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: [NICOTINE DEPEND CIGARETTES UNCOMP] Onset: 05-03-2022 Chronic Unclassified (1 source) Aneurysm of the ascending aorta, without rupture; 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: [Aneurysm of the ascending aorta, without rupture] Onset: 11-04-2024 Past or Other Problems Problem Classification Problem Date Documented Da te Episodic/Chronic Blindness and vision defects (20 sources) Visual hallucinations; 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: [Visual hallucinations] Onset: 06-28-2023 Resolved: 12-04-2023 12-04-2023 Episodic E Codes: Natural/environment (1 source) Other and unspecified overexertion or strenuous movements or postures, initial encounter; 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: [OTH AND UNS OVREXRT/STRN MVMT/POS INT] Onset: 02-15-2022 Episodic Fluid and electrolyte disorders (20 sources) Hyponatremia; 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: [Hypo-osmolality and hyponatremia] Onset: 06-28-2023 06-28-2023 Episodic Malaise and fatigue (20 sources) Fatigue; 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: [Other fatigue] Onset: 04-24-2023 Resolved: 06-06-2024 04-24-2023 Episodic Other aftercare (18 sources) Long-term current use of drug therapy; 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: [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] Onset: 04-24-2023 04-24-2023 Episodic Other aftercare (20 sources) Patient encounter status; 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: [Encounter for screening for malignant neoplasm of prostate] Onset: 04-24-2023 04-24-2023 Episodic Other injuries and conditions due to external causes (1 source) Unspecified injury of left ankle, initial encounter; 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: [UNSPECIFIED INJURY LT ANKLE INITIAL] Onset: 02-15-2022 Episodic Other nervous system disorders (20 sources) Metabolic encephalopathy; 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: [Metabolic encephalopathy] Onset: 06-28-2023 Resolved: 12-04-2023 12-04-2023 Chronic Other non-traumatic joint disorders (3 sources) Pain in left ankle and joints of left foot; 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: [PAIN IN LEFT ANKLE] Onset: 02-14-2022 Episodic Residual codes; unclassified (20 sources) Persistent insomnia; 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: [Insomnia, unspecified] Onset: 04-24-2023 04-24-2023 Episodic Residual codes; unclassified (20 sources) Transient alteration of awareness; 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: [Transient alteration of awareness] Onset: 06-28-2023 Resolved: 12-04-2023 12-04-2023 Episodic Unclassified (1 source) Aneurysm of the ascending aorta, without rupture; 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: [Aneurysm of the ascending aorta, without rupture] Onset: 11-04-2024 Results Test Name Value Interpretation Reference Range Facility Office Visiton 11-04-2024 Follow-up visit [id number] James Barros 1950 Date Provider Department [place] 11/04/2024 WYATT LOERA [facility] Family History Problem Relation Age of Onset Heart attack Maternal Grandfather Family Status - Relation Status Age at Mother Father Maternal Grandfather Level of Service:18711 [place] OFFICE/OUTPATIENT ESTABLISHED MOD MDM 30 MIN [facility] Abstracton 10-30-2024 Abstract [id number] James Barros 1950 M Date Provider Department [facility] Family History Problem Relation Age of Onset Heart attack Maternal Grandfather Family Status - Relation Status Age at Maternal Grandfather [facility] CTA Chest vessels WO and W c ontrast [place] 10-30-[address] [place] [id number] Scan Report Signed Patient: JAMES BARROS MR#: [id number] : 1950 Acct:[id number] Age/Sex: 74 / M ADM Date: 10/29/24 Loc: LAB Attending Dr: WYATT STALLINGS Ordering Physician: WYATT STALLINGS Date of Service: 10/29/24 Procedure(s): CT angio chest Accession Number(s): [id number] cc: Kenny Horton M.D. [address] [address] Patient Name: JAMES BARROS MRN: [id number] date: 1950 Sex: M Assigned Patient Location: LAB Current Patient Location: Accession/Order Number: [id number] Exam Date: 10/30/2024 08:03 Report Date: 10/30/2024 [...] Lester M.D. 10/30/2024 8:15 AM Dictation Location: [place] [address] Electronically authenticated by: [id number] Y Date: 10/30/2024 08:15 Dictated By: Jolie Lester M.D. 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 The [place] [id number] Patient Name: JAMES BARROS MRN: [id number] date: 1950 Sex: M Assigned Patient Location: LAB Current Patient Location: Accession/Order Number: [id number] Exam Date: 10/30/2024 08:03 Report Date: 10/30/2024 [...] Lester M.D. 10/30/2024 8:15 AM Dictation Location: [place] [address] Electronically authenticated by: [id number] Y Date: 10/30/2024 08:15 Dictated By: Jolie Lester M.D. 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: [facility] Radiology Study observation (narrative) [facility] CTA Chest vessels WO and W c ontrast IVOrdered By: Radiologist Radiology on 10-30-2024 [facility] Work Phone: TB CREATININEon 10-29-2024 Creatinine [Mass/Vol] 0.97 mg/dL 0.70 - 1.30 mg/dL [facility] GFR/1.73 sq M.predicted CKD-EPI (S/P/Bld) [Vol rate/Area] >60 >=60 mL/min/1.73m 2 [facility] EGFR-NON AF KYRGYZ >60 >=60 mL/min/1.73m 2 [facility] ALL CBC WITH AUTO DIFFon BASOPHILS ABSOLUTE AUTO 0.1 [facility] Basophils/100 WBC (Bld) 0.9 % 0.2 - 2.0 % [facility] Eosinophils/100 WBC (Bld) 3.2 % 0.9 - 7.0 % [facility] Erythrocyte distribution width (RBC) [Ratio] 12.3 % 11.0 - 15.0 % [facility] Hematocrit (Bld) [Volume fraction] 47.9 % 42.0 - 54.0 % [facility] Hemoglobin (Bld) [Mass/Vol] 16.9 g/dL 14.0 - 18.0 g/dL [facility] IMMATURE GRANULOCYTES ABS AUTO 0.08 High [facility] Immature granulocytes/100 WBC (Bld) 1 % High 0.0 - 0.5 % [facility] Interpretation and review of laboratory results Abnormal [facility] LYMPHOCYTES ABSOLUTE AUTO 2.3 [facility] Lymphocytes/100 WBC (Bld) 28.4 % 20.5 - 60.0 % [facility] MCH (RBC) [Entitic mass] 33.2 pg 25.9 - 34.0 pg [facility] Healthcare MCHC (RBC) [Mass/Vol] 35.3 g/dL High 29.9 - 35.2 g/dL [facility] MCV (RBC) [Entitic vol] 94.1 fL High 80.0 - 94.0 fL [facility] MONOCYTES ABSOLUTE AUTO 0.7 [facility] Monocytes/100 WBC (Bld) 9.1 % 1.7 - 12.0 % [facility] NEUTROPHILS ABSOLUTE AUTO 4.6 [facility] Neutrophils/100 WBC (Bld) 57.4 % 43.0 - 75.0 % [facility] Platelet mean volume (Bld) [Entitic vol] 10.7 fL 9.5 - 13.5 fL [facility] TBH EO # 0.3 [facility] TB PLT 117 Low [facility] Healthcare TB RBC 5.09 [facility] TB WBC 8 [facility] Healthcare Office Visiton 06-04-2024 Follow-up visit [id number] James Barros Floresita 1950 M [facility] Provider Department [facility] Family History Problem Relation Age of Onset Heart attack Maternal Grandfather Family Status - Relation Status Age at Maternal Grandfather Level of Service:83773 [place] OFFICE/OUTPATIENT ESTABLISHED LOW MDM 20 MIN Normal [facility] Office Visiton 12-11-2023 Follow-up visit [id number] James Barros Floresita 1950 M Date Provider Department Center 12/11/2023 MED FELICIANO Family History Problem Relation Age of Onset Heart attack Maternal Grandfather Family Status - Relation Status Age at Maternal Grandfather Level of Service:71745 [place] OFFICE/OUTPATIENT ESTABLISHED MOD MDM 30 MIN Normal [facility] Orders Onlyon 12-11-2023 Orders Only [id number] James Barros Floresita 1950 M Date Provider Department Center 12/11/2023 [facility] Family History Problem Relation Age of Onset Heart attack Maternal Grandfather Family Status - Relation Status Age at Maternal Grandfather Normal [facility] TB MICROALBUMIN, RAND URon 12-11-2023 MICROALBUMIN URINE RANDOM 19.3 mg/dL NINF - 30.0 mg/dL [facility] BAS[facility] METABOLIC PANELon 12-06-2023 Anion gap [Moles/Vol] 13.0 mmol/L [facility] Calcium [Mass/Vol] 10.1 mg/dL 8.5 - 10. 1 mg/dL [facility] Chloride [Moles/Vol] 103 mmol/L 98 - 107 mmol/L [facility] CO2 [Moles/Vol] 26.1 mmol/L 21.0 - 32.0 mmol/L [facility] Creatinine [Mass/Vol] 0.95 mg/dL 0.70 - 1.30 mg/dL [facility] GFR/1.73 sq M.predicted CKD-EPI (S/P/Bld) [Vol rate/Area] >60 60 - PINF [facility] Glucose [Mass/Vol] 196 mg/dL High 74 - 106 mg/dL [facility] Interpretation and review of laboratory results Abnormal [facility] Potassium [Moles/Vol] 4.1 mmol/L 3.5 - 5.1 mmol/L [facility] Sodium [Moles/Vol] 138 mmol/L 136 - 145 mmol/L [facility] EGFR-NON AF KYRGYZ >60 60 - PINF [facility] Urea nitrogen [Mass/Vol] 16.0 mg/dL 7.0 - 18.0 mg/dL [facility] Urea nitrogen/Creatinine [Mass ratio] 16.8 mg/mg [facility] A1Con 2022 ADA RECOMMENDATION SEE BELOW Normal [facility] Comment on above: Result Comment: ADA RECOMMENDED LIMIT 4.0 - 6.0 ADA THERAPEUTIC TARGET < 7.0 ACTION SUGGESTED > 7.0 Performed By: #### A 1C ####[facility] [address] [place], [place] [address]WuNoelle Jean Glucose [Mass/Vol] 197 mg/dL Normal [facility] Comment on above: Performed By: #### A 1C ####[facility] [address] [place], [place] [address]WfNoelle Jean HbA1c (Bld) [Mass fraction] 8.5 % Critically high 4.5-6.2 [facility] Comment on above: Performed By: #### A 1C ####[facility] [address] [place] [address]Dr. Vipul Jean AMYLASEon 05-01-2022 Amylase [Catalytic activity/Vol] 33 U/L Normal 25-115 [facility] Comment on above: Performed By: #### A MY, HSTROPN, LIPA, CMP #### [facility] [address] [place] [address] [address] Vipul Jean CBC AUTO DIFFon 05-01-2022 BASO # 0.1 103/ul Normal 0.0-0.1 [facility] Comment on above: Performed By: #### C BC #### [facility] [address] [place] [address] Dr. Vipul Jean Basophils/100 WBC (Bld) 0.6 % Normal 0.2-2.0 [facility] Comment on above: Performed By: #### C BC #### [facility] [address] [place] [address] Dr. Vipul Jean EO # 0.1 103/ul Normal 0.0-0.7 [facility] Comment on above: Performed By: #### C BC #### [facility] [address] [place] [address] Dr. Vipul Jean Eosinophils/100 WBC (Bld) 1.4 % Normal 0.9-7.0 [facility] Comment on above: Performed By: #### C BC #### [facility] [address] [place] [address] Dr. Vipul Jean Erythrocyte distribution width (RBC) [Ratio] 12.2 % Normal 11.0-15.0 [facility] Comment on above: Performed By: #### C BC #### [facility] [address] [place] [address] Dr. Vipul Jean Hematocrit (Bld) [Volume fraction] 46.0 % Normal 42.0-54.0 [facility] Comment on above: Performed By: #### C BC #### [facility] [address] [place] [address] Dr. Vipul Jean Hemoglobin (Bld) [Mass/Vol] 16.7 g/dL Normal 14.0-18.0 [facility] Comment on above: Performed By: #### C BC #### [facility] [address] [place] [address] Dr. Vipul Jean IG # 0.04 10e3/ul Critically high 0.00-0.03 [facility] Comment on above: Performed By: #### C BC #### [facility] [address] [place] [address] Dr. Vipul Jean IG % 0.4 % Normal 0.0-0.5 [facility] Comment on above: Performed By: #### C BC #### [facility] [address] [place] [address] Dr. Vipul Jean LYMPH # 1.7 103/ul Normal 1.2-3.8 [facility] Comment on above: Performed By: #### C BC #### [facility] [address] [place] [address] Dr. Vipul Jean Lymphocytes/100 WBC (Bld) 18.7 % Critically low 20.5-60.0 [facility] Comment on above: Performed By: #### C BC #### [facility] [address] [place] [address] Dr. Vipul Jean MANUAL DIFF REQ NO Normal [facility] Comment on above: Performed By: #### C BC #### [facility] [address] [place] [address] Dr. Vipul Jean MCH (RBC) [Entitic mass] 33.3 pg Normal 25.9-34.0 [facility] Comment on above: Performed By: #### C BC #### [facility] [address] [place] [address] Dr. Vipul Jean MCHC (RBC) [Mass/Vol] 36.3 g/dL Critically high 29.9-35.2 [facility] Comment on above: Performed By: #### C BC #### [facility] [address] [place] [address] Dr. Vipul Jean MCV (RBC) [Entitic vol] 91.6 fL Normal 80.0-94.0 [facility] Comment on above: Performed By: #### C BC #### [facility] [address] [place] [address] Dr. Vipul Jean MONO # 0.6 103/ul Normal 0.3-0.8 [facility] Comment on above: Performed By: #### C BC #### [facility] [address] [place] [address] Dr. Vipul Jean Monocytes/100 WBC (Bld) 6.9 % Normal 1.7-12.0 [facility] Comment on above: Performed By: #### C BC #### [facility] [address] [place] [address] Dr. Vipul Jean NEUT # 6.5 103/ul Normal 1.4-6.5 [facility] Comment on above: Performed By: #### C BC #### [facility] [address] [place] [address] Dr. Vipul Jean Neutrophils/100 WBC (Bld) 72.0 % Normal 43.0-75.0 [facility] Comment on above: Performed By: #### C BC #### [facility] [address] [place] [address] Dr. Vipul Jean Platelet mean volume (Bld) [Entitic vol] 10.5 fL Normal 9.5-13.5 [facility] Comment on above: Performed By: #### C BC #### [facility] [address] [place] [address] Dr. Vipul Jean PLT 125 103/ul Critically low 150-450 [facility] Comment on above: Performed By: #### C BC #### [facility] [address] [place], [place] [id number] Dr. Vipul Jean RBC 5.02 106/ul Normal 4.70-6.10 [facility] Comment on above: Performed By: #### C BC #### [facility] [address] [place] [address] Dr. Vipul Jean WBC 9.0 103/ul Normal 4.0-11.0 [facility] Comment on above: Performed By: #### C BC #### [facility] [address] [address] ABD/PELVIS WO CONon [...] by: HOME MARX Date: 2022-05-01 15:31 Normal [facility] LIPASEon 05-01-2022 Lipase [Catalytic activity/Vol] 62.0 U/L Critically low 73.0-393.0 [facility] Comment on above: Performed By: #### A PERFECTO GANDARA LIPA, CMP #### [facility] [address] [address] [address] Vipul Jean PROF 14(COMP METB)on 023 Albumin [Mass/Vol] 3.4 g/dL Normal 3.4-5.0 [facility] Comment on above: Performed By: #### A PERFECTO GANDARA LIPA, CMP #### [facility] [address] [address] [address] Vipul Jean Albumin/Globulin [Mass ratio] 1.1 {ratio} Normal [facility] Comment on above: Performed By: #### A NEFTALY GANDARATROPN, LIPA, CMP #### [facility] [address] [address] [address] Vipul Jean ALP [Catalytic activity/Vol] 93 U/L Normal 46-116 [facility] Comment on above: Performed By: #### A MY, HSTROPN, LIPA, CMP #### [facility] [address] [place] [address] Dr. Vipul Jean ALT [Catalytic activity/Vol] 38 U/L Normal 16-63 [facility] Comment on above: Performed By: #### A MY, HSTROPN, LIPA, CMP #### [facility] [address] [place] [address] Dr. Vipul Jean Anion gap [Moles/Vol] 10.6 mmol/L Normal [facility] Comment on above: Performed By: #### A MY, HSTROPN, LIPA, CMP #### [facility] [address] [place] [address] Dr. Vipul Jean AST [Catalytic activity/Vol] 29 U/L Normal 15-37 [facility] Comment on above: Performed By: #### A MY, HSTROPN, LIPA, CMP #### [facility] [address] [place] [address] Dr. Vipul Jean Bilirubin [Mass/Vol] 0.6 mg/dL Normal 0.2-1.0 [facility] Comment on above: Performed By: #### A MY, HSTROPN, LIPA, CMP #### [facility] [address] [place] [address] Dr. Vipul Jean Calcium [Mass/Vol] 10.0 mg/dL Normal 8.5-10.1 [facility] Comment on above: Performed By: #### A MY, HSTROPN, LIPA, CMP #### [facility] [address] [place] [address] Dr. Vipul Jean Chloride [Moles/Vol] 105 mmol/L Normal 98-107 [facility] Comment on above: Performed By: #### A MY, HSTROPN, LIPA, CMP #### [facility] [address] [address] [address] Vipul Jean CO2 [Moles/Vol] 24.6 mmol/L Normal 21.0-32.0 [facility] Comment on above: Performed By: #### A MY, HSTROPN, LIPA, CMP #### [facility] [address] [place] [address] Dr. Vipul Jean Creatinine [Mass/Vol] 1.08 mg/dL Normal 0.70-1.30 [facility] Comment on above: Performed By: #### A MY, HSTROPN, LIPA, CMP #### [facility] [address] [place] [address] Dr. Vipul Jean EGFR-AF KYRGYZ >60 Normal >=60 [facility] Comment on above: Performed By: #### A MY, HSTROPN, LIPA, CMP #### [facility] [address] [place] [address] Dr. Vipul Jean EGFR-NON AF KYRGYZ >60 Normal >=60 [facility] Comment on above: Performed By: #### A MY, HSTROPN, LIPA, CMP #### [facility] [address] [place] [address] Dr. Vipul Jean Globulin (S) [Mass/Vol] 3.2 g/dL Normal [facility] Comment on above: Performed By: #### A MY, HSTROPN, LIPA, CMP #### [facility] [address] [place] [address] Dr. Vipul Jean Glucose [Mass/Vol] 215 mg/dL Critically high 74-106 T [facility] Comment on above: Performed By: #### A MY, HSTROPN, LIPA, CMP #### [facility] [address] [place] [address] Dr. Vipul Jean Potassium [Moles/Vol] 4.2 mmol/L Normal 3.5-5.1 [facility] [facility] Comment on above: Performed By: #### A MY, HSTROPN, LIPA, CMP #### [facility] [address] [place], [place] [id number] Dr. Vipul Jean Protein [Mass/Vol] 6.6 g/dL Normal 6.4-8.2 [facility] Comment on above: Performed By: #### A MY, HSTROPN, LIPA, CMP #### [facility] [address] [place] [address] Dr. Vipul Jean Sodium [Moles/Vol] 136 mmol/L Normal 136-145 [facility] Comment on above: Performed By: #### A MY, HSTROPN, LIPA, CMP #### [facility] [address] [place] [address] Dr. Vipul Jean Urea nitrogen [Mass/Vol] 16.0 mg/dL Normal 7.0-18.0 [facility] Comment on above: Performed By: #### A MY, HSTROPN, LIPA, CMP #### [facility] [address] [place] [address] Dr. Vipul Jean Urea nitrogen/Creatinine [Mass ratio] 14.8 mg/mg Normal [facility] Comment on above: Performed By: #### A MY, HSTROPN, LIPA, CMP #### [facility] [address] [place] [address] Dr. Vipul Jean TROPONIN, HIGH SENSITIVITYon 05-01-2022 HSTROP 21.4 pg/mL Normal 4.0-76.1 [facility] Comment on above: Result Comment: CUT- OFF POINTS HAVE BEEN ESTABLISHED BASED ON THE FOURTH UNIVERSAL DEFINITIONS OF MYOCARDIAL INFARCTION. THE UPPER REFERENCE LIMIT (URL) OF TROPONIN, DEFINED THE 99TH PERCENTILE OF cTnI DISTRIBUTION IN A REFERENCE POPULATION, HAS BEEN CONFIRMED THE DECISION THRESHOLD FOR [place] DIAGNOSIS. Performed By: #### A MY, HSTROPN, LIPA, CMP #### [facility] [address] [place] [address] Dr. Vipul Jean CBC AUTO DIFFon 02-14-2022 BASO # 0.1 103/ul Normal 0.0-0.1 [facility] Comment on above: Performed By: #### C BC #### [facility] [address] [place] [address] Dr. Vipul Jean Basophils/100 WBC (Bld) 0.6 % Normal 0.2-2.0 [facility] Comment on above: Performed By: #### C BC #### [facility] [address] [place] [address] Dr. Vipul Jean EO # 0.1 103/ul Normal 0.0-0.7 [facility] Comment on above: Performed By: #### C BC #### [facility] [address] [place] [address] Dr. Vipul Jean Eosinophils/100 WBC (Bld) 1.6 % Normal 0.9-7.0 [facility] Comment on above: Performed By: #### C BC #### [facility] [address] [place] [address] Dr. Vipul Jean Erythrocyte distribution width (RBC) [Ratio] 12.1 % Normal 11.0-15.0 [facility] Comment on above: Performed By: #### C BC #### [facility] [address] [place] [address] Dr. Vipul Jean Hematocrit (Bld) [Volume fraction] 47.9 % Normal 42.0-54.0 [facility] Comment on above: Performed By: #### C BC #### [facility] [address] [place] [address] Dr. Vipul Jean Hemoglobin (Bld) [Mass/Vol] 17.1 g/dL Normal 14.0-18.0 [facility] Comment on above: Performed By: #### C BC #### [facility] [address] [place] [address] Dr. Vipul Jean IG # 0.03 10e3/ul Normal 0.00-0.03 [facility] Comment on above: Performed By: #### C BC #### [facility] [address] [place] [address] Dr. Vipul Jean IG % 0.4 % Normal 0.0-0.5 [facility] Comment on above: Performed By: #### C BC #### [facility] [address] [place] [address] Dr. Vipul Jean LYMPH # 1.8 103/ul Normal 1.2-3.8 [facility] Comment on above: Performed By: #### C BC #### [facility] [address] [place] [address] Dr. Vipul Jean Lymphocytes/100 WBC (Bld) 22.4 % Normal 20.5-60.0 [facility] Comment on above: Performed By: #### C BC #### [facility] [address] [place] [address] Dr. Vipul Jean MANUAL DIFF REQ NO Normal [facility] Comment on above: Performed By: #### C BC #### [facility] [address] [place] [address] Dr. Vipul Jean MCH (RBC) [Entitic mass] 33.0 pg Normal 25.9-34.0 [facility] Comment on above: Performed By: #### C BC #### [facility] [address] [place] [address] Dr. Vipul Jean MCHC (RBC) [Mass/Vol] 35.7 g/dL Critically high 29.9-35.2 [facility] Comment on above: Performed By: #### C BC #### [facility] [address] [place] [address] Dr. Vipul Jean MCV (RBC) [Entitic vol] 92.5 fL Normal 80.0-94.0 [facility] Comment on above: Performed By: #### C BC #### [facility] [address] [place] [address] Dr. Vipul Jean MONO # 0.6 103/ul Normal 0.3-0.8 [facility] Comment on above: Performed By: #### C BC #### [facility] [address] [place] [address] Dr. Vipul Jean Monocytes/100 WBC (Bld) 7.0 % Normal 1.7-12.0 [facility] Comment on above: Performed By: #### C BC #### [facility] [address] [place] [address] Dr. Vipul Jean NEUT # 5.5 103/ul Normal 1.4-6.5 [facility] Comment on above: Performed By: #### C BC #### [facility] [address] [place] [address] Dr. Vipul Jean Neutrophils/100 WBC (Bld) 68.0 % Normal 43.0-75.0 [facility] Comment on above: Performed By: #### C BC #### [facility] [address] [address] [address] Vipul Jean Platelet mean volume (Bld) [Entitic vol] 11.0 fL Normal 9.5-13.5 [facility] Comment on above: Performed By: #### C BC #### [facility] [address] [place] [address] Dr. Vipul Jean PLT 101 103/ul Critically low 150-450 [facility] Comment on above: Performed By: #### C BC #### [facility] [address] [place] [address] Dr. Vipul Jean RBC 5.18 106/ul Normal 4.70-6.10 [facility] Comment on above: Performed By: #### C BC #### [facility] [address] [place] [address] Dr. Vipul Jean WBC 8.1 103/ul Normal 4.0-11.0 [facility] Comment on above: Performed By: #### C BC #### [facility] [address] [place] [address] Dr. Vipul Jean CRPon 02-14-2022 CRP [Mass/Vol] mg/L Normal <=1.0 [facility] Comment on above: Performed By: #### C RP, URIC #### [facility] [address] [place] [address] Dr. Vipul Jean URIC ACID SERUMon 02-14-2022 Urate [Mass/Vol] 4.4 mg/dL Normal 3.5-7.2 [facility] Comment on above: Performed By: #### C RP, URIC #### [facility] [address] [place] [address] Dr. Vipul Jean XR ANKLE LT MIN [...] by: NORY ALICIA Date: 2022-02-14 15:05 Normal [facility] CNOVSPon 06-15-2017 CNOVSP Visit (SP) Office ([facility]) Ko BARRSO ([id number]) [facility] Department06/15/17 3:45 PM CAREY TREVIÑO During your visit today, we recorded the following information about you: Temperature Pulse Respiration Blood pressure 97 degrees 53/minute 18/minute 149/69 Weight Height 92.8 kg 1.676 Baldemar Treviño MD 06/15/2017 3:50 PM SignedHeidy Barros is a 67 year old male [...] kg (204 lb 9.6 oz) BMI 33.02 kg/v3Rfdgofo Appearance: alert and oriented, appearing in no [...] ABS GRAN CT + CBC (FOR [facility] USE)2. S/P CABG x 5 - ICD9: V45.81, ICD10: Z95.1See above3. Undescended left testicle - ICD9: 752.51, ICD10: Q53.10See Cruz Terviño, MDReferring Provider: AUDREY OSHEA [[id number]]Allergies As of Date: 06/15/2017(No Known Allergies)Date Reviewed: 06/15/2017Reviewed by: Liliane Molina - Fully AssessedReason for Visit: low platelets [Other] Cmt: new patient consultationPrimary Visit Diagnosis:Thrombocytopeni a (HCC) [D69.6] Other Visit Diagnoses: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 left testicle [Q53.10]Order(s):ABS GRAN CT + CBC (FOR [facility] USE) [SQRAGCBC] Order #: [id number] FUTUREFollow-up and Disposition History RecordedPrescriptions as of [...] by CAREY TREVIÑO MD on 06/15/17 Normal [facility] PROGRESSon 06-15-2017 PROGRESS HNO ID: [id number] thor: [place]: (none)Author Type: PhysicianType: Progress [...] Arthritis- Blindness- COPD (chronic obstructive pulmonary disease) ([facility])- Diabetes ([facility])- Hyperlipidemia- HypertensionPAST SURGICAL HISTORYProcedure Laterality Date- CABG [...] kg (204 lb 9.6 oz) BMI 33.02 kg/g3Eqjbqdg Appearance: alert and oriented, appearing in no [...] ABS GRAN CT + CBC (FOR [facility] USE)2. S/P CABG x 5 - ICD9: V45.81, ICD10: Z95.1See above3. Undescended left testicle - ICD9: 752.51, ICD10: Q53.10See Cruz Treviño MD Normal [facility] Remote Abs Gran + CBC (for F use only)on 06-15-2017 Absol Gran Count 5.25 k/uL Normal 1.45-7.50 [facility] Erythrocyte distribution width Auto Ratio (RBC) 12.4 % Normal 11.5-15.0 [facility] Erythrocytes (RBC) 4.87 10*6/uL Normal 4.20-6.00 [facility] Hematocrit (HCT) 45.5 % Normal 39.0-51.0 [facility] Hemoglobin mass conc (Bld) 15.7 g/dL Normal 13.0-17.0 [facility] MCH 32.2 pG Normal 26.0-34.0 [facility] MCHC mass conc (RBC) 34.5 g/dL Normal 30.5-36.0 [facility] MCV 93.4 fL Normal 80.0-100.0 [facility] Platelet mean volume (PMV) 10.8 fL Normal 9.0-12.7 [facility] Platelets 116 10*3/uL Low 150-400 [facility] WBC (Leukocytes) 7.93 10*3/uL Normal 3.70-11.00 [facility] Vital Signs Date Time Vital Sign Value Performing Clinician Faci [facility] 10-28-2024 15:04-0400 Body height 170.2 cm Sigifredo Brunner DPM Work Phone: [facility] 10-28-2024 15:04-0400 Body mass index (BMI) [Ratio] 28.04 kg/m2 Sigifredo Brunner DPM Work Phone: [facility] 10-28-2024 15:04-0400 Body weight 81.19 kg Sigifredo Brunner DPM Work Phone: [facility] 06-06-2024 13:33-0500 Body height 170.2 cm Kenny Horton MD Work Phone: [facility] 06-06-2024 13:33-0500 Body mass index (BMI) [Ratio] 28.04 kg/m2 Kenny Horton MD Work Phone: [facility] 06-06-2024 13:33-0500 Body temperature 98.2 [degF] Kenny Horton MD Work Phone: [facility] 06-06-2024 13:33-0500 Body weight 81.19 kg Kenny Horton MD Work Phone: [facility] 06-06-2024 13:33-0500 Diastolic blood pressure 62 mm[Hg] Kenny Horton MD Work Phone: [facility] 06-06-2024 13:33-0500 Heart rate 67 /min Kenny Horton MD Work Phone: [facility] 06-06-2024 13:33-0500 Respiratory rate 20 /min Kenny Horton MD Work Phone: [facility] 06-06-2024 13:33-0500 SaO2% (BldA) [Mass fraction] 97 % Kenny Horton MD Work Phone: [facility] 06-06-2024 13:33-0500 Systolic blood pressure 154 mm[Hg] Kenny Horton MD Work Phone: [facility] 05-22-2024 15:24-0500 Body height 170.2 cm Sigifredo Lopez DPM Work Phone: [facility] 05-22-2024 15:24-0500 Body mass index (BMI) [Ratio] 28.19 kg/m2 Sigifredo Lopez DPM Work Phone: [facility] 05-22-2024 15:24-0500 Body weight 81.65 kg Sigifredo Kannan DPM Work Phone: [facility] 03-05-2024 14:09-0500 Body height 170.2 cm Kenny Horton MD Work Phone: [facility] 03-05-2024 14:09-0500 Body mass index (BMI) [Ratio] 28.19 kg/m2 Kenny Horton MD Work Phone: [facility] 03-05-2024 14:09-0500 Body temperature 97.81 [degF] Kenny Horton MD Work Phone: [facility] 03-05-2024 14:09-0500 Body weight 81.65 kg Kenny Horton MD Work Phone: [facility] 03-05-2024 14:09-0500 Diastolic blood pressure 58 mm[Hg] Kenny Horton MD Work Phone: [facility] 03-05-2024 14:09-0500 Heart rate 60 /min Kenny Horton MD Work Phone: [facility] 03-05-2024 14:09-0500 Respiratory rate 18 /min Kenny Horton MD Work Phone: [facility] 03-05-2024 14:09-0500 SaO2% (BldA) [Mass fraction] 98 % Kenny Horton MD Work Phone: [facility] 03-05-2024 14:09050 Systolic blood pressure 122 mm[Hg] Kenny Horton MD Work Phone: [facility] 02-20-2024 15:16050 Body height 170.2 cm Sigifredo Brunner DPM Work Phone: [facility] 02-20-2024 15:16050 Body mass index (BMI) [Ratio] 25.06 kg/m2 Sigifredo Brunner DPM Work Phone: [facility] 02-20-2024 15: Body weight 72.58 kg Sigifredo Brunner DPM Work Phone: [facility] Healthcare Encounters Encounter Date Encounter Type Care Provider Facility Start: 11-04-2024 End: 11-04-2024 ambulatory [facility] Start: 10-30-2024 End: 10-30-2024 Clinisync Result Encounter Generic External Data Provider [facility] External Department Unsolicited Start: 10-30-2024 End: 10-30-2024 Clinisync Result Encounter Generic External Data Provider [facility] External Department Unsolicited Start: 10-29-2024 End: 10-29-2024 Clinisync Result Encounter Generic External Data Provider [facility] External Department Unsolicited Start: 10-29-2024 End: 10-29-2024 Clinisync Result Encounter Generic External Data Provider [facility] External Department Unsolicited Start: 10-28-2024 End: 10-28-2024 Patient encounter procedure Sigifredo Brunner DPM Work Phone: [facility] Comment on above: Dermatophytosis of n ail (Primary Dx); Dystrophic nail; Pain around toenail, right foot; Pain around toenail, left foot Start: 10-28-2024 End: 10-28-2024 ambulatory SIGIFREDO BRUNNER Not Available Start: 10-28-2024 End: 10-28-2024 Bamboo flowsheet Sigifredo Brunner DPM Work Phone: [facility] Start: 10-28-2024 End: 10-28-2024 Bamboo flowsheet Sigifredo Brunner DPM Work Phone: [facility] Start: 06-06-2024 End: 06-06-2024 Bamboo flowsheet Kenny Horton MD Work Phone: [facility] Start: 06-06-2024 End: 06-06-2024 Bamboo flowsheet Kenny Horton MD Work Phone: [facility] Start: 06-06-2024 End: 06-06-2024 Office outpatient visit 25 minutes Kenny Horton MD Work Phone: [facility] Comment on above: Type 2 diabetes [...] Result Encounter Kenny Horton MD Work Phone: [facility] External Department Unsolicited Start: 06-05-2024 End: 06-05-2024 Clinisync Result Encounter Kenny Horton MD Work Phone: [facility] External Department Unsolicited Start: 06-04-2024 End: 06-04-2024 Orders Only Kenny Horton MD Work Phone: [facility] Comment on above: Screening PSA (prost ate specific antigen) (Primary Dx); Type 2 diabetes mellitus with hyperglycemia, without long-term current use of insulin (CMS/HCC); Dyslipidemia (CMS/HCC); Encounter for long-term (current) use of medications Start: 05-22-2024 End: 05-22-2024 ambulatory SIGIFREDO BRUNNER Not Available Start: 05-22-2024 End: 05-22-2024 Patient encounter procedure Sigifredo Brunner DPM Work Phone: [facility] Comment on above: Dermatophytosis of n ail (Primary Dx); Dystrophic nail; Pain around toenail, right foot; Pain around toenail, left foot Start: 05-22-2024 End: 05-22-2024 Bamboo flowsheet Sigifredo Brunner DPM Work Phone: [facility] Start: 05-22-2024 End: 05-22-2024 Bamboo flowsheet Sigifredo Brunner DPM Work Phone: [facility] Start: 03-05-2024 End: 03-05-2024 Office outpatient visit 25 minutes Kenny Horton MD Work Phone: [facility] Comment on above: Type 2 diabetes ruma itus with hyperglycemia, without long-term current use of insulin (CMS/HCC) (Primary Dx); Benign hypertension (CMS/HCC); Major depressive disorder, recurrent episode, mild (HCC) (CMS/HCC); Type 2 diabetes mellitus with polyneuropathy (CMS/HCC); 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 (CMS/HCC) Start: 03-05-2024 End: 03-05-2024 Bamboo flowsheet Kenny Horton MD Work Phone: [facility] Start: 03-05-2024 End: 03-05-2024 Bamboo flowsheet Kenny Horton MD Work Phone: [facility] Start: 03-05-2024 End: 03-05-2024 ambulatory KENNY HORTON Not Available Start: 02-20-2024 End: 02-20-2024 Patient encounter procedure Sigifredo Brunner DPM Work Phone: [facility] Comment on above: Dermatophytosis of n ail (Primary Dx); Dystrophic nail; Pain around toenail, right foot; Pain around toenail, left foot Start: 02-20-2024 End: 02-20-2024 ambulatory SIGIFREDO BRUNNER Not Available Start: 02-20-2024 End: 02-20-2024 Bamboo flowsheet Sigifredo Brunner DPM Work Phone: [facility] Start: 02-20-2024 End: 02-20-2024 Bamboo flowsheet Sigifredo Brunner DPM Work Phone: [facility] Start: 01-17-2024 End: 01-17-2024 Telephone encounter Kenny Horton MD Work Phone: [facility] Start: 12-11-2023 End: 12-11-2023 Clinisync Result Encounter Kenny Horton MD Work Phone: [facility] External Department Unsolicited Start: 12-11-2023 End: 12-11-2023 Clinisync Result Encounter Kenny Horton MD Work Phone: [facility] External Department Unsolicited Start: 12-11-2023 End: 12-11-2023 ambulatory [facility] Start: 12-06-2023 End: 12-06-2023 Clinisync Result Encounter [...] Available Start: 11-20-2023 End: 11-20-2023 ambulatory SIGIFREDO BRUNNER Not Available Start: 06-16-2023 End: 07-17-2023 ambulatory SHINE M [facility] Start: 05-25-2023 End: 06-16-2023 ambulatory KENNY HORTON [facility] Start: 05-23-2023 End: 05-28-2023 Emergency department patient visit KENNY HORTON [facility] Start: 07-27-2022 End: 07-28-[address] KENNY HORTON Facility:[facility] Start: 05-01-2022 End: 05-01-[address] KENNY HORTON Facility:[facility] Start: 02-14-2022 End: 02-14-[address] KENNY HORTON Facility:[facility] Start: 06-15-2017 End: 06-16-2017 Ambulatory CAREY TREVIÑO [facility] Procedures Date Procedure Procedure Detail Performing Clinician Start: 10-30-2024 Ct angiography chest w/contrast/noncontrast Generic External Data Provider Start: 10-29-2024 TB CREATININE Generic External Data Provider Start: 06-05-2024 ALL CBC WITH AUTO DIFF Kenny Horton MD Work Phone: Start: 12-11-2023 TB MICROALBUMIN, RA ND UR Kenny Horton MD Work Phone: Start: 12-06-2023 ALL BASIC METABOLIC PANEL Kenny Horton MD Work Phone: Start: 04-24-2023 History of coronary artery bypass grafting History of coronary artery bypass graft Kenny Horton MD Work Phone: Plan of Treatment Date Care Activity Detail Author Start: 02-20-2025 Glaucoma screening Diabetes: R etinopathy Screening [facility] Start: 02-17-2025 End: 02-17-2025 Patient encounter procedure 02/17/2025 3:15 PM EST Procedure Visit [facility] [address] [place] [id number] Sigifredo Brunner DPM [address] [place], [place] [id number] [facility] Start: 12-16-2024 Influenza vaccination Influenza Vacc ine (#1) [facility] Start: 12-10-2024 Urine screening for protein Diabetes: Urine Protein Screening [facility] Start: 12-05-2024 End: 12-05-2024 Patient encounter procedure 12/05/2024 2:00 PM EDT Office Visit [facility] [address] [place] [address] Kenny Horton MD [address] [place] [address] [facility] Start: 12-03-2024 Hemoglobin A1c measurement Diabetes: Hemoglobin A1C [facility] Start: 10-28-2024 End: 10-28-2024 Patient encounter procedure 10/28/2024 3:15 PM EDT Procedure Visit [facility] [address] [place] [phone] Sigifredo Brunner DPR[address]olfo [address] [place] [address] Arrived [facility] Comment on above: Arrived Start: 08-19-2024 End: 08-19-2024 Patient encounter procedure 08/19/2024 3:15 PM EDT Procedure Visit [facility] [address] [place] [phone] Sigifredo Brunner [address] [place] [address] [facility] Start: 06-07-2024 Hemoglobin A1c measurement Diabetes: Hemoglobin A1C [facility] Start: 06-06-2024 End: 06-06-2024 Patient encounter procedure [facility] Comment on above: Arrived Start: 06-04-2024 End: 06-04-2025 Basic metabolic 1998 panel - Serum or Plasma Basic metabolic panel Lab Routine Encounter for long-term (current) use of medications Expected: 06/04/2024 (Approximate), Expires: 06/04/2025 [facility] Comment on above: Expected: 06/04/2024 (Approximate), Expires: 06/04/2025 Start: 06-04-2024 End: 06-04-2025 CBC W Auto Differential panel - Blood CBC and differential Lab Routine Encounter for long-term (current) use of medications Expected: 06/04/2024 (Approximate), Expires: 06/04/2025 [facility] Comment on above: Expected: 06/04/2024 (Approximate), Expires: 06/04/2025 Start: 06-04-2024 End: 06-04-2025 Hemoglobin A1c/Hemoglobin.total in Blood Hemoglobin A1c Lab Routine Type 2 diabetes mellitus with hyperglycemia, without long-term current use of insulin ([facility]) Expected: 06/04/2024 (Approximate), Expires: 06/04/2025 [facility] Work Phone: Comment on above: Expected: 06/04/2024 (Approximate), Expires: 06/04/2025 Start: 06-04-2024 End: 06-04-2025 Hepatic function 2000 panel - Serum or Plasma Hepatic function panel Lab Routine Encounter for long-term (current) use of medications Expected: 06/04/2024 (Approximate), Expires: 06/04/2025 [facility] Comment on above: Expected: 06/04/2024 (Approximate), Expires: 06/04/2025 Start: 06-04-2024 End: 06-04-2025 Lipid 1996 panel - Serum or Plasma Lipid panel Lab Routine Dyslipidemia ([facility]) Expected: 06/04/2024 (Approximate), Expires: 06/04/2025 [facility] Comment on above: Expected: 06/04/2024 (Approximate), Expires: 06/04/2025 Start: 06-04-2024 End: 06-04-2025 Prostate specific Ag [Mass/volume] in Serum or Plasma PSA Lab Routine Screening PSA (prostate specific antigen) Expected: 06/04/2024 (Approximate), Expires: 06/04/2025 [facility] Comment on above: Expected: 06/04/2024 (Approximate), Expires: 06/04/2025 Start: 05-22-2024 End: 05-22-2024 Patient encounter procedure 05/22/2024 3:15 PM EST Procedure Visit [facility] [address] [place] [address] Sigifredo Brunner, DPM [address] [place] [address] [facility] Start: 03-05-2024 End: 03-05-2024 Patient encounter procedure [facility] Comment on above: Arrived Start: 02-20-2024 End: 02-20-2024 Patient encounter procedure [facility] Comment on above: Arrived Start: 12-17-2023 Influenza vaccination Influenza Vacc ine (#1) [facility] Start: 05-01-2023 Urine screening for protein Diabetes: Urine Protein Screening [facility] Start: 1969 Pneumococcal Vaccine : 65+ Years (1 of 2 - PCV) Pneumococcal Vaccine: 65+ Years (1 of 2 - PCV) [facility] Start: 1954 Pneumococcal Vaccine : 65+ Years (1 of 2 - PCV) Pneumococcal Vaccine: 65+ Years (1 of 2 - PCV) [facility] Start: 1950 Hemoglobin A1c measurement Diabetes: Hemoglobin A1C [facility] Start: 1950 Screening for malign ant neoplasm of colon [facility] Pulmonary function report Pulmonary Function Test Imaging Routine Chronic obstructive pulmonary disease, unspecified COPD type ([facility]) Ordered: 06/06/2024 [facility] Work Phone: Comment on above: Ordered: 06/06/2024 Payers Date Payer Category Payer Medicare [employer] MEDICARE ADVANTAGE [employer] MEDICARE [id number] 2022-Present [address] [place] [id number] 2022 Medicare (Managed Care) [employer] M EDICARE ADVANTAGE [id number] 1959 Medicare [id number] 1948 Unknown [id number] 1948 Unknown [id number] 1948 Unknown [id number] 1948 Unknown [id number] 1948 Unknown [id number] 1948 Unknown [id number] 1950 Unknown [id number] [id number] 1950 Unknown [id number] [id number] 1950 Unknown [id number] 2.1259 1950 Unknown [id number] 2.1259 1950 Unknown [id number] 2.1259 1950 Unknown [id number] 2.1259 1950 Unknown [id number] [id number] Social History Date Type Detail Facility Start: 11-20-2023 Tobacco smoking stat [facility] Smokes tobacco daily [facility] History of tobacco use Cigarette Smoker [facility] Start: 11-20-2023 Tobacco use and exposure Smoke less tobacco non-user [facility] Start: 12-04-2023 End: 10-30-2024 Alcoholic beverage intake Lifetime non-drinker (finding) [facility] Start: 12-04-2023 End: 10-28-2024 History of Social function [facility] Start: 12-04-2023 End: 10-28-2024 Tobacco use panel [facility] Start: 03-02-2023 Tobacco Comment Start smoking at age 7 [facility] Start: 11-24-2022 Alcohol Comment Caffeine intak e: 3-4 cups per day [facility] Start: 1950 Sex assigned at Not on file [facility] Clinical Notes 12-11-2023 to 11-04-2024 Sigifredo Brunner, DPM - 10/28/2024 3:15 PM EDTPatient Reyna Horton MD - 06/06/2024 2:10 PM Vivian Horton MD - 06/06/2024 2:10 PM Vivian Horton MD - 06/06/2024 2:10 PM EST Note Date & Type Note Facility 11-04-2024 Note [place] [facility] Subjective James Barros is a 74 y.o. year old male patient being seen for a follow up CTA of the chest. Patient state he feels like he's in a fog patients states he is having a lot of memory loss. Patient states last week he had chest pain while sitting, patient states it felt tight and resolved on its own. 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 (CMS/HCC) Hyponatremia Major depressive disorder, recurrent episode, mild Screening PSA (prostate specific antigen) Type 2 diabetes mellitus with hyperglycemia, without long-term current use of insulin (CMS/HCC) Type 2 diabetes mellitus with polyneuropathy ([facility]) COPD (chronic obstructive pulmonary disease) ([facility]) Family History Problem Relation Name Age of Onset Heart attack Maternal Grandfather Social History Tobacco Use Smoking status: Every Day Current packs/day: 1.00 Types: Cigarettes Smokeless tobacco: Never Substance Use Topics Alcohol use: Not Currently Drug use: Never HPI James is seen in follow-up. This is the first time I am meeting him. He used to see Dr. Med Paz from our group. Last visit was on 06/04/2024. he is a 74-year-old man with history of coronary disease status post bypass surgery in 2010, hypertension, hyperlipidemia and COPD. He has enlargement of the thoracic aorta. He also has bicuspid aortic valve by echocardiography. Today he reports that he had an episode of chest pain a few days ago that lasted few minutes and resolved spontaneously. The pain was in the center of the chest with no radiation. This happened at rest. There was no recurrence of the pain. He is currently on aspirin, statin, metformin. He used to be on lisinopril and metoprolol and those were stopped. Review of Systems Cardiovascular: Positive for chest pain. Musculoskeletal: Positive for arthritis and joint pain. Psychiatric/Behavioral: Positive for memory loss. Objective Visit Vitals BP 145/73 (BP Location: Left arm, Patient Position: Sitting) Pulse 81 Ht 1.702 m (5' 7 ) Wt 78.5 kg (173 lb) SpO2 95% BMI 27.10 kg/m??? Smoking Status Every Day BSA 1.93 m??? Physical Exam Constitutional: Appearance: He is well-developed. He is not ill-appearing. HENT: Head: Normocephalic and atraumatic. Nose: Nose normal. Eyes: General: No scleral icterus. Pupils: Pupils are equal, round, and reactive to light. Neck: Thyroid: No thyromegaly. Vascular: No JVD. Cardiovascular: Rate and Rhythm: Normal rate and regular rhythm. Pulses: Radial pulses are 2+ on the right side and 2+ on the left side. Heart sounds: Murmur heard. Systolic (RUSB) murmur is present with a grade of 2/6. No friction rub. No gallop. Pulmonary: Effort: Pulmonary effort is normal. No respiratory distress. Breath sounds: Normal breath sounds. No wheezing or rales. Chest: Chest wall: No tenderness. Abdominal: General: Bowel sounds are normal. There is no distension. Palpations: Abdomen is soft. Tenderness: There is no abdominal tenderness. Musculoskeletal: General: No swelling. Cervical back: Neck supple. Comments: Uses a cane to assist with ambulation Skin: General: Skin is warm and dry. Neurological: General: No focal deficit present. Mental Status: He is alert and oriented to person, place, and time. Psychiatric: Mood and Affect: Mood normal. Behavior: Behavior is cooperative. Judgment: Judgment normal. Allergies No Known Allergies Medications Current Outpatient Medications: aspirin 81 mg EC tablet, Take 81 mg by mouth in the morning., Disp: , Rfl: metFORMIN (Glucophage) 500 mg tablet, Take 500 mg by mouth with breakfast and with evening meal., Disp: , Rfl: rosuvastatin (Crestor) 40 mg tablet, Take 1 tablet (40 mg) by mouth at bedtime., Disp: 90 tablet, Rfl: 3 sodium chloride 1,000 mg tablet, Take 1 g by mouth once daily as directed., Disp: , Rfl: ARIPiprazole (Abilify) 2 mg tablet, Take 2 mg by mouth at bedtime. (Patient not taking: Reported on 11/04/2024), Disp: , Rfl: isosorbide mononitrate ER (Imdur) 30 mg 24 hr tablet, Take 1 tablet (30 mg) by mouth in the morning. Do not crush or chew., Disp: 90 tablet, Rfl: 3 lisinopril 5 mg tablet, Take 5 mg by mouth in the morning. (Patient not taking: Reported on 11/04/2024), Disp: , Rfl: metoprolol succinate XL (Toprol-XL) 25 mg (more content not included)... [facility] 10-28-2024 History of Present illness Narrative Images from the original note were not included. Subjective Patient ID: James Barros is a 74 y.o. male who [...] , Rfl: cholecalciferol (Vitamin D-3) 50 MCG (1999) capsule, Take 2,000 Units by mouth Daily, Disp: , Rfl: Glucose Blood (MiTú BLOOD GLUCOSE TEST ), , Disp: , [...] Sigifredo Brunner DPM documented in this encounter [facility] 10-28-2024 Instructions Sigifredo Brunner DPM - 10/28/2024 3:15 PM EDT As noted documented in this encounter [facility] 06-06-2024 History of Present illness Narrative Associated [...] note were not included. Subjective Patient ID: James Barros is a 73 y.o. male who [...] (CMS/HCC) Occasional symptoms but mild and monitor. COPD (chronic obstructive pulmonary disease) (CMS/HCC) Check PFTs. Stressed need to stop smoking. Relevant Orders Pulmonary Function Test documented in this encounter [facility] 06-04-2024 Note Cardiology Clinic No te Chief Complaint: Patient here for 6 mo follow up CAD s/p CABG, hypertension, and hyperlipidemia. He's due to routine annual CTA chest in October 2024. doesn't think he's taking lisinopril or metoprolol due to hypotension. HPI: James Barros is a 73 y.o. male with a past medical history including HTN, HLD, COPD, and CAD s/p CABG in 2010. 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 Patient presents today for [...] as needed Med Paz MD Interventional Cardiology [facility] 06-04-2024 History of Present illness Narrative Order in chart, please fax. documented in this encounter [facility] 05-22-2024 History of Present illness Narrative Images from the original note were not included. Subjective Patient ID: James Barros is a 73 y.o. male who presents for Nail care ( James Barros is a 73 y.o. male, Pt [...] the morning., Disp: , Rfl: Glucose Blood (MiTú BLOOD GLUCOSE TEST ), , Disp: , [...] Sigifredo Brunner DPM documented in this encounter [facility] 03-05-2024 History of Present illness Narrative Associated [...] note were not included. Subjective Patient ID: James Barros is a 73 y.o. male who [...] mild and monitor. documented in this encounter [facility] 02-20-2024 History of Present illness Narrative Images from the original note were not included. Subjective Patient ID: James Barros is a 73 y.o. male who [...] the morning., Disp: , Rfl: Glucose Blood (MiTú BLOOD GLUCOSE TEST ), , Disp: , [...] Sigifredo Brunner DPM documented in this encounter [facility] 02-20-2024 Instructions Sigifredo Brunner DPM - 02/20/2024 3:15 PM EST As noted documented in this encounter [facility] 01-17-2024 Telephone encounter Note Error [facility] 01-17-2024 Miscellaneous Notes Error documented in this encounter [facility] 12-11-2023 Note Cardiology Clinic No te Chief Complaint: establish care HPI: James Barros is a 72 y.o. male with a past medical history including HTN, HLD, COPD, and CAD s/p CABG in 2010. 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 Patient presents today for [...] as needed Med Paz MD Interventional Cardiology [facility] Evaluation note Diagnosis Type 2 diabetes mellitus with hyperglycemia, without long-term current use of insulin (CMS/HCC)- Primary Benign hypertension (CMS/HCC) Essential hypertension, benign Major depressive disorder, recurrent episode, moderate (CMS/HCC) Major depressive disorder, recurrent episode, moderate Senile dementia with behavioral disturbance (CMS/HCC) Other fatigue Atherosclerosis of [place] coronary artery of [place] heart without angina pectoris (CMS/HCC) History of [...] left foot [facility] Diagnosis Type 2 diabetes mellitus with hyperglycemia, without long-term current use of insulin (CMS/HCC)- Primary Benign hypertension (CMS/HCC) Essential hypertension, benign Major depressive disorder, recurrent episode, moderate (CMS/HCC) Major depressive disorder, recurrent episode, moderate Senile dementia with behavioral disturbance (CMS/HCC) Other fatigue Atherosclerosis of [place] coronary artery of [place] heart without angina pectoris (CMS/HCC) History of [...] behavioral disturbance (CMS/HCC) documented in this encounter [facility]* Diagnosis Hyponatremia Hyposmolality and/or hyponatremia documented in this encounter [facility]* Diagnosis Type 2 diabetes mellitus with hyperglycemia, without long-term current use of insulin (CMS/HCC)- Primary Benign hypertension (CMS/HCC) Essential hypertension, benign Major depressive disorder, recurrent episode, moderate (CMS/HCC) Major depressive disorder, recurrent episode, moderate Senile dementia with behavioral disturbance (CMS/HCC) Other fatigue Atherosclerosis of [place] coronary artery of [place] heart without angina pectoris (CMS/HCC) History of [...] toenail, left foot documented in this encounter [facility]* Diagnosis Type 2 diabetes mellitus with hyperglycemia, without long-term current use of insulin (CMS/HCC)- Primary Benign hypertension (CMS/HCC) Essential hypertension, benign Major depressive disorder, recurrent episode, moderate (CMS/HCC) Major depressive disorder, recurrent episode, moderate Senile dementia with behavioral disturbance (CMS/HCC) Other fatigue Atherosclerosis of [place] coronary artery of [place] heart without angina pectoris (CMS/HCC) History of [...] of other medications documented in this encounter [facility]* Diagnosis Type 2 diabetes mellitus with hyperglycemia, without long-term current use of insulin (CMS/HCC)- Primary Benign hypertension (CMS/HCC) Essential hypertension, benign Major depressive disorder, recurrent episode, moderate (CMS/HCC) Major depressive disorder, recurrent episode, moderate Senile dementia with behavioral disturbance (CMS/HCC) Other fatigue Atherosclerosis of [place] coronary artery of [place] heart without angina pectoris (CMS/HCC) History of [...] behavioral disturbance (CMS/HCC) documented in this encounter [facility]* Diagnosis Type 2 diabetes mellitus with hyperglycemia, without long-term current use of insulin (HCC)- Primary Benign hypertension Essential hypertension, benign Major depressive disorder, recurrent episode, moderate (HCC) Major depressive disorder, recurrent episode, moderate Senile dementia with behavioral disturbance (HCC) Other fatigue Atherosclerosis of [place] coronary artery of [place] heart without angina pectoris History of coronary [...] section and content) DATE CREATED AUTHOR 10/06/2017 [facility] DATE CREATED AUTHOR AUTHOR'S ORGANIZ ATION 08/01/2022 [facility] DATE CREATED AUTHOR AUTHOR'S ORGANIZ ATION 05/29/2023 [facility] DATE CREATED AUTHOR AUTHOR'S ORGANIZ ATION 07/17/2023 [facility] DATE CREATED AUTHOR AUTHOR'S ORGANIZ ATION 11/01/2024 [facility] DATE CREATED AUTHOR AUTHOR'S ORGANIZ ATION 11/05/2024 [facility] Care Teams (unrecognized sec tion and content) Chart Changer Relationship Specialty Start Date End Date Kenny Horton MD [address] [place] [phone] PCP - General Family Medicine 06/28/23 Chart Changer Relationship Specialty Start Date End Date Kenny Horton MD [address] [place] [phone] PCP - General Family Medicine 06/28/23 Chart Changer Relationship Specialty Start Date End Date Kenny Horton MD [address] [place] [phone] PCP - General Family Medicine 06/28/23 Chart Changer Relationship Specialty Start Date End Date Kenny Horton MD [address] [place] [phone] PCP - General Family Medicine 06/28/23 Chart Changer Relationship Specialty Start Date End Date Kenny Horton MD [address] [place] [phone] PCP - General Family Medicine 06/28/23 Chart Changer Relationship Specialty Start Date End Date Kenny Horton MD [address] [place] [address] PCP - General Family Medicine 06/28/23 Chart Changer Relationship Specialty Start Date End Date Kenny Horton MD [address] [place] [address] PCP - General Family Medicine 06/28/23 Chart Changer Relationship Specialty Start Date End Date Kenny Horton MD [address] [place] [address] PCP - General Family Medicine 06/28/23 Chart Changer Relationship Specialty Start Date End Date Kenny Horton MD [address] [place] [address] PCP - General Family Medicine 06/28/23 Chart Changer Relationship Specialty Start Date End Date Kenny Horton MD [address] [place] [address] PCP - General Family Medicine 06/28/23 Chart Changer Relationship Specialty Start Date End Date Kenny Horton MD [address] [place] [address] PCP - General Family Medicine 06/28/23 Chart Changer Relationship Specialty Start Date End Date Kenny Horton MD [address] [place] [address] PCP - General Family Medicine 06/28/23 Chart Changer Relationship Specialty Start Date End Date Kenny Horton MD [address] [place] [address] PCP - General Family Medicine 06/28/23 Reason for Visit (unrecogniz ed section and content) Reason Comments DM Foot Care Pt presents today wi th his requesting diabetic foot care.BS: 148 A1C: 6.4Lv Dr. Horton 12-04-2023SS: 9.5W Reason Comments Follow-up 3 m Reason Comments Nail care James Barros is a 73 y.o. male, Pt [...] BE BASED ON THE PRIMARY CLINICAL RECORDS. [facility] [employer] [facility]. provides no warranty or guarantee of the accuracy or completeness of information in this document.
--- NOTE | 2024-11-27 09:45 | NM_ITS ---
Patient Name: JAMES POPE MR#: [id number] : 1950 Exam Date: 11/27/2024 Ordering Doctor: DR WYATT STALLINGS M.D. RADIOLOGY REPORT PROCEDURE: NM BRANDO PERF SPECT REST STR COMPARISON: None. INDICATIONS: CORONARY ARTERY DISEASE, CHEST PAIN TECHNIQUE: Exam Description: Stress/Rest one day protocol gated SPECT Rest Imagin.9 mCi Tc-99m Cardiolite IV on 11/27/2024 Stress Imaging 30.3 mCi Tc-99m Cardiolite IV on 11/27/2024 Exercise Protocol: 0.4 mg Lexiscan given IV Heart Rate (bpm): Rest: 54 Max: 75 PMHR: 52 Blood Pressure: Rest: 146/75 Max: 146/75 Symptoms: Rest and peak stress ECG findings were pending, and the exercise portion of the study was pending per attending physician [facility]. For more details, please see separate cardiac stress test report. FINDINGS: QUALITY OF STUDY: Good PERFUSION DEFECT: LOCATION: Inferoapical SIZE: Large SEVERITY: Severe TYPE: Fixed; consistent with infarct WALL MOTION: Hypokinesis of the inferoapex LV SIZE: 157 mL. TID / TCD: 0.9 LVEF: Calculated EF 44%. SUMMARY: Myocardial perfusion imaging study is abnormal CONCLUSION: 1. Myocardial perfusion is abnormal; there is a fixed inferoapical perfusion defect seen consistent with infarct 2. No significant ischemia is seen 3. Normal left ventricular systolic function is mildly reduced; EF is 44% 4. No significant transient ischemic dilatation Dictated by: Juancarlos Noble M.D. on 12/02/2024 at 13:57 Approved by: Juancarlos Noble M.D. on 12/02/2024 at 14:01
--- NOTE | 2024-11-27 11:30 | PC.NURSE ---
Nursing Note Cardiac Stress Test Reviewed: Medication, allergies and patient history reviewed. Stress Test: [x ] Patient tolerated stress test well. [ ] Patient unable to tolerate walking on treadmill. Switched to Lexiscan stress test. [x ] No chest pain noted per patient [ ] Chest pain that resolved prior to leaving stress lab. [x ] No dyspnea noted. [ ] Dyspnea that resolved prior to leaving stress lab. [x ] Patient left stress lab asymptomatic and hemodynamically stable. [ ] Patient taken to the Emergency Room due to non-resolving symptoms following stress test. [ ] Patient achieved target heart rate. [ ] Patient unable to achieve target heart rate. [ ] Aminophylline administered as reversal agent to Lexiscan (Regadenoson). [ ] Nitro administered. Nursing Comments:Pt had Lexiscan test done. Tolerated well. No symptoms reported. Pt was taken to cafeteria via wheelchair for breakfast prior to second set of images.
[2024-11-27] MEDS: REGADENOSON 0.4 MG/5 ML SYRINGE IV (11:35)
--- NOTE | 2024-11-27 12:55 | CA_ITS ---
Patient Name: JAMES POPE MR#: [id number] : 1950 Exam Date: 11/27/2024 Ordering Doctor: DR WYATT PHILLIPS M.D. [place] Corrected on: 11/29/2024; ECHOCARDIOGRAM REPORT PROCEDURE: CA ECHO DOPPLER COMPLETE INDICATIONS: Bicuspid aorta valve COMPARISON: None. DESCRIPTION: COMPLETE ECHOCARDIOGRAM Real-time transthoracic echocardiography with 2D, M-mode, spectral and color flow Doppler performed. QUALITY: Technical quality was good. LEFT VENTRICLE: Normal chamber size. Thickened septal wall. Mild concentric hypertrophy. Global left ventricular systolic function is normal. LV EF: Estimated left ventricular ejection fraction is 55 to 60%. DIASTOLIC: Diastolic function is indeterminate. ATRIAL SEPTUM: LEFT ATRIUM: Mild dilatation. RIGHT ATRIUM: Mild dilatation. RIGHT VENTRICLE: Normal chamber size. Normal right ventricular systolic function. TRICUSPID VALVE: Normal mobility and thickness. No stenosis with no regurgitation. RVSP not calculated due to lack of measurable tricuspid regurgitation. MITRAL VALVE: Normal mobility and thickness. No evidence of mitral valve stenosis. There is no mitral annular calcification. Mild mitral regurgitation. AORTIC VALVE: Bicuspid aortic valve, Max type 0 [no raphae, fusion of the left and noncoronary cusps]. No visible sclerosis. No evidence of aortic valve stenosis. Mild to moderate aortic regurgitation. AORTIC ROOT: Moderately dilated, measuring 4.4 cm. The ascending aorta is mildly dilated measuring 4.1cm. The aortic arch is dilated measuring 4.1cm. PULMONIC VALVE: Normal thickness and mobility. No stenosis. No regurgitation. PERICARDIUM: No evidence of pericardial effusion. IVC: Not well visualized. PLEURA: CONCLUSION: 1. Mild concentric left ventricular hypertrophy with normal systolic function. LVEF is estimated at 55 to 60%. 2. Normal right ventricular size and systolic function. 3. Mild biatrial dilatation. 4. Bicuspid aortic valve with mild to moderate regurgitation and no stenosis. 5. Moderately dilated aortic root [4.4 cm], with mildly dilated ascending aorta [4.1 cm]. 6. Unable to assess right-sided pressures due to lack of measurable tricuspid regurgitation. Adult Echocardiography Procedure Report Left Ventricle LVEDD (3.7 - 5.6 cm): 5.27 cm LVESD (2.2 - 4.0 cm): 3.84 cm LVIVS thickness (0.6 - 1.2 cm): 1.53 cm LVPW thickness (0.5 - 1.0 cm): 0.97 cm e': 0.10 m/s E - e': 5.52 LVOT Max Gradient: 3.18 mm[Hg] LVOT Area (cm2): 0.89 m/s Peak Velocity (LVOT): 0.89 m/s Mean Velocity (LVOT): 0.51 m/s LVOT Diameter 2.63 cm Left Ventricular Ejection Fraction: 55-60 % Left Atrium LA Volume Index (2D A2C): 44.61 ml/m2 Left Atrium Systolic Dimension: 4.37 cm Mitral Valve MV E to A Ratio: 0.53 Mitral Valve A-Wave Peak Velocity: 1.02 m/s Mitral Valve E-Wave Peak Velocity: 0.54 m/s Right Ventricle RV Internal Diastolic Dimension: 4.12 cm Aorta AO Root Diam: 4.36 cm Ascending Ao Diam: 4.07 cm Aortic Valve AoV Area (Peak Samir): 4.06 cm2, 4.06 cm2 AoV Area (VTI): 3.67 cm2, 3.67 cm2 Deceleration [place]: 2.10 m/s2 Pressure Half-Time: 515.55 ms Peak Velocity(Antegrade Flow): 1.19 m/s Peak Gradient(Antegrade Flow): 5.64 mm[Hg] Mean Velocity(Antegrade Flow): 0.73 m/s Mean Gradient(Antegrade Flow): 2.58 mm[Hg] Velocity Time Integral: 24.98 cm Tricuspid Valve Pulmonic Valve Mean Gradient: 1.54 mm[Hg] Mean Velocity: 0.57 m/s Peak Velocity: 0.84 m/s Peak Gradient: 2.80 mm[Hg] Right Atrium Right Atrium Systolic Pressure: 50.75 ml, 50.75 ml Dictated by: Wyatt Phillips M.D. on 11/29/2024 at 21:05 Approved by: Wyatt Phillips M.D. on 11/29/2024 at 21:11 Dictated by: Wyatt Phillips M.D. on 11/29/2024 at 21:16 Approved by: Wyatt Phillips M.D. on 11/29/2024 at 21:16
--- NOTE | 2024-12-02 08:49 | P.STRESS_ITS ---
Stress Test Stress Test Allergies Allergy/AdvReac Type Severity Reaction Status Date / Time No Known Drug Allergies Allergy Verified 09/18/23 16:30 Requesting physician: WYATT STALLINGS Procedure: This was a Lexiscan stress test with myocardial perfusion imaging performed at the [facility] on 11/27/2024. Intravenous line was secured. The patient was attached to electrocardiographic monitoring. Baseline vital signs and ECG were obtained. Lexiscan 0.4 mg was administered intravenously followed by administration of Cardiolite. The patient then went on to obtain myocardial perfusion imaging. Resting heart rate was 54 bpm and peak heart rate was 75 bpm. Resting blood pressure was 146/75 and peak blood pressure was 146/75. General Information: Reason for Stress Test: Chest pain. Cardiac History and Risk Factors: Hypertension, CABG, hyperlipidemia. Resting 12 - Lead Electrocardiogram: Sinus bradycardia with first-degree AV block, right bundle branch block, left ventricular hypertrophy with repolarization abnormalities, possible inferior infarct age undetermined. Stress Test: Protocol: Lexiscan pharmacologic stress test. Exercise Capacity: Not assessed. Blood Pressure Response: Resting hypertension. Rhythm: Sinus with occasional PVCs. ST - Response: No ischemic ST changes seen. Patient Response: No symptoms. Interpretation: 1. No evidence of ischemic ST changes seen following infusion of Lexiscan. 2. Myocardial perfusion images will be reported separately.
== END 2024-11-27 09:30 | disposition home or self-care (01) ==
LOC: NM 09:29
PROVIDERS: PCP Family Medicine; Visit Provider Internal Medicine Interventional Cardiology
DX: I25.118 Atherosclerotic heart disease of native coronary artery with other forms of angina pectoris (principal); Q23.81 Bicuspid aortic valve; I35.1 Nonrheumatic aortic (valve) insufficiency; I71.21 Aneurysm of the ascending aorta, without rupture
CPT/HCPCS: 78452; 93017; 93306; A9500; J2785

== ENCOUNTER 2025-01-06 14:25 | Outpatient (OUT) | payer MEDICARE, SELFPAY ==
--- OUTSIDE RECORDS SUMMARY | 2024-12-24 03:17 | XMS_ITS | Encounter Summary ---
Author Organization [facility] tem Address [id number] [address] [place] [address] Care Team Providers Care Inspector Filter Tip Name Role Phone Kenny Brown MD Primary Care Provider [phone] Reason for Referral * Occupational Therapy (Routine) - Pending Review Specialty Diagnoses / Procedures Referred By Evangelista valerio Referred To Contact Occupational Therapy Diagnoses Fall, initial encounter Right hip pain Acute pain of both knees Encounter for screening involving social determinants of health (SDoH) Jefry Veras DO [address] [place] [address] Phone: tel: fax: Referral ID Status Reason Start Date Expiration Date Visits Requested Visits Authorized [id number] Pending Review Specialty Services Required 12/24/2024 06/23/2025 12 12 * Physical Therapy (Routine) - Pending Review Specialty Diagnoses / Procedures Referred By Evangelista valerio Referred To Contact Rehabilitation Diagnoses Fall, initial encounter Right hip pain Acute pain of both knees Encounter for screening involving social determinants of health (SDoH) Jefry Veras DO [address] [place] [address] Phone: tel: fax: Referral ID Status Reason Start Date Expiration Date Visits Requested Visits Authorized [id number] Pending Review Specialty Services Required 12/24/2024 06/23/2025 12 12 * Consultation (Routine) - Pending Review Specialty Diagnoses / Procedures Referred By Evangelista valerio Referred To Contact Behavioral Health Diagnoses Fall, initial encounter Right hip pain Acute pain of both knees Encounter for screening involving social determinants of health (SDoH) Jefry Veras DO [address] [place] [address] Phone: tel: fax: Referral ID Status Reason Start Date Expiration Date Visits Requested Visits Authorized [id number] Pending Review Specialty Services Required 12/24/2024 12/24/2025 1 1 Reason for Visit * Reason Comments Fall Encounter Details Date Type Department Care Team (Late st Contact Info) Description 12/24/2024 3:17 AM EDT - 12/24/2024 4:46 AM EDT Emergency [facility] - Emergency [address] [place] [address] Jefry Veras DO [address], [place] [id number] Fall, initial encounter (Primary Dx); Right hip pain; Acute pain of both knees; Encounter for screening involving social determinants of health (SDoH) Discharge Disposition: Home Social History Tobacco Use Types Packs/Day Years [...] got money to buy more. Never True 12/24/2024 Within the past 12 months th e food we bought just didn't last and we didn't have money to get more. Never True 12/24/2024 Purpose - Life Answer Date Recorded Purpose and direction in life Unknown Sex and Gender Information Value Date Recorded Sex Assigned at Not on file Legal Sex Male 1:44 PM EST Gender Identity Not on file Sexual Orientation Not on file documented as of this encounter Last Filed Vital Signs Vital Sign Reading Time Taken Comments Blood Pressure 130/69 12/24/2024 4:30 AM EDT Pulse 84 12/24/2024 3:25 AM EDT Temperature 36.9 C (98.4 F) 12/24/2024 3:25 AM EDT Respiratory Rate 18 12/24/2024 3:25 AM EDT Oxygen Saturation 95% 12/24/2024 4:30 AM EDT Inhaled Oxygen Concentration - - Weight 81.6 kg (180 lb) 12/24/2024 3:25 AM EDT Height 170.2 cm (5' 7 ) 12/24/2024 3:25 AM EDT Body Mass Index 28.19 12/24/2024 3:25 AM EDT documented in this encounter Discharge Instructions * Discharge Instructions* Jefry Veras DO - 12/24/2024 4:38 AM EDT Follow-up with primary care provider within next 3 days. Return to the ED with any worsening symptoms, new symptoms, or any symptoms are concerning to you. Use Motrin Tylenol for baseline aches/pains. Follow-up with PT, OT, and transition social worker for further evaluation treatment your symptoms. Return with any other concerns or questions. * Attachments The following attachments cannot be sent through Care Everywhere. * Preventing falls in adults (Malian) * Knee pain (Malian) * Hip pain in adults (Malian) documented in this encounter Medications at Time of Discharge aspirin 81 mg Take 81 mg by mouth daily. lisinopril-hydroC HLOROthiazide (PRINZIDE,ZESTORE TIC) 10-12.5 mg per tablet Take 1 tablet by mouth in the morning. metFORMIN (GLUCOPHAGE) 500 mg tablet Take 1 tablet by mouth 2 (two) times a day. metoprolol tartrate (LOPRESSOR) 25 mg tablet take 1 tablet (25MG) by oral route 2 times every day Oral rosuvastatin (CRESTOR) 40 mg tablet Take 40 mg by mouth daily. documented as of this encounter ED Notes * Dori Ramos RN - 12/24/2024 3:26 AM EDT Pt fell onto hardwood floor getting out of bed, landing on right hip and tailbone * Jefry Veras DO - 12/24/2024 3:20 AM EDT Images from the original note were not included. [facility] - EMERGENCY Pt Name: Kj Barros Birthdate: 1950 Chief Complaint: Chief Complaint Patient presents with Fall History of Present Illness: 74-year-old male with history of anxiety, depression, diabetes, hyperlipidemia, myocardial infarction presenting to the emergency department after having a mechanical fall this evening. Patient reports that he was getting out of bed when he slid out of the bed and landed directly onto his right hipand bilateral knees. Patient states no head/neck injury, states he is not on blood thinners, is notinterested in CT head and neck at this time. Patient states that he was unable to get out off the floor due to right hip/knee pain and called 911. Patient states no other areas of injury, no chest wall pain, no abdominal pain, no head/neck, thoracic, lumbar spine pain. Patient states no urinary/bowel incontinence, no saddle paresthesia, no other concerns at this time. Patient denies any fevers/chills, nausea/vomiting/diarrhea, lightheadedness/dizziness, vision/hearing change, or any other injuries at this time. Past Medical History: Past Medical History: Diagnosis Date Anxiety Depression Diabetes mellitus type 2, controlled ([facility]) Hyperlipidemia Myocardial infarction ([facility]) Past Surgical History: Past Surgical History: Procedure Laterality Date CORONARY ARTERY BYPASS GRAFT Family History: History reviewed. No pertinent family history. Social History: Social History Socioeconomic History Marital status: Tobacco Use Smoking status: Every Day Smokeless tobacco: Never Substance and Sexual Activity Alcohol use: Not Currently Drug use: Not Currently Sexual activity: Defer Social Drivers of Health Food Insecurity: No Food Insecurity (12/24/2024) Hunger Screening Food Insecurity - Worry: Never True Food Insecurity - Inability: Never True Received from [facility] [place] Safety & Environment Review of Systems: Review of Systems Physical Exam: ED Triage Vitals Temp Pulse Resp BP SpO2 -- -- -- -- -- Temp src Heart Rate Source Patient Position BP Location FiO2 (%) -- -- -- -- -- Vitals: 12/24/24 0324 12/24/24 0325 BP: 163/78 Temp: 36.9 ??C (98.4 ??F) TempSrc: Oral Pulse: 84 Resp: 18 SpO2: 100% Height: 170.2 cm (5' 7 ) Weight: 81.6 kg (180 lb) Physical Exam Vitals and nursing note reviewed. Constitutional: General: He is not in acute distress. Appearance: Normal appearance. He is well-developed. He is not diaphoretic. HENT: Head: Normocephalic and atraumatic. Right Ear: External ear normal. Left Ear: External ear normal. Nose: Nose normal. No nasal deformity or rhinorrhea. Mouth/Throat: Pharynx: Uvula midline. No oropharyngeal exudate. Eyes: General: Lids are normal. No scleral icterus. Right eye: No discharge. Left eye: No discharge. Conjunctiva/sclera: Conjunctivae normal. Pupils: Pupils are equal, round, and reactive to light. Neck: Vascular: No JVD. Trachea: Trachea and phonation normal. No tracheal deviation. Cardiovascular: Rate and Rhythm: Normal rate and regular rhythm. Pulses: Normal pulses. Heart sounds: Normal heart sounds. No murmur heard. Pulmonary: Effort: Pulmonary effort is normal. No respiratory distress. Breath sounds: Normal breath sounds. No wheezing or rales. Chest: Chest wall: No tenderness. Abdominal: General: Bowel sounds are normal. There is no distension. Palpations: Abdomen is soft. There is no mass. Tenderness: There is no abdominal tenderness. There is no guarding. Musculoskeletal: General: No deformity. Right shoulder: Normal. Left shoulder: Normal. Right elbow: Normal. Left elbow: Normal. Right wrist: Normal. Left wrist: Normal. Cervical back: Normal, normal range of motion and neck supple. Thoracic back: Normal. Lumbar back: Normal. Right hip: Tenderness present. Decreased range of motion. Left hip: Normal. Right knee: Decreased range of motion. Tenderness present. Left knee: Decreased range of motion. Tenderness present. Right ankle: Normal. Left ankle: Normal. Right foot: Normal. Left foot: Normal. Lymphadenopathy: Cervical: No cervical adenopathy. Skin: General: Skin is warm and dry. Findings: No erythema or rash. Neurological: General: No focal deficit present. Mental Status: He is alert and oriented to person, place, and time. GCS: GCS eye subscore is 4. GCS verbal subscore is 5. GCS motor subscore is 6. Sensory: Sensation is intact. No sensory deficit. Coordination: Coordination normal. Gait: Gait abnormal (difficulty with ambulation secondary to right hip/knee pain). Deep Tendon Reflexes: Reflexes are normal and symmetric. Psychiatric: Mood and Affect: Mood is anxious. Speech: Speech normal. Behavior: Behavior normal. Behavior is cooperative. Thought Content: Thought content normal. Judgment: Judgment normal. Procedure: Procedures Re-evaluation: Re-Evaluation Medical Decision Making Problems Addressed: Acute pain of both knees: complicated acute illness or injury Encounter for screening involving social determinants of health (SDoH): complicated acute illness or injury Details: Patient provided transition social worker, PT, OT as patient is having difficulty getting around his house, is reportedly legally blind, and states that she is having some difficulties with takingcare of him at home. Patient currently not looking for nursing facility. Fall, initial encounter: complicated acute illness or injury Details: 74-year-old male presenting to the emergency department with reports of a mechanical fall,reports that he slid out of bed and landed on his right hip and bilateral knees. Patient states he had difficulty getting off the floor and 911 was called by his . Patient's monitor shows a sinusrhythm 84 beats per minute, respiration 18, SpO2 100% on room air. Patient was tender to his right h ip, bilateral knees, x-rays were performed that showed arthritis but no signs of acute fracture/dislocation. Patient was able to ambulate with a walker which is the patient's reported baseline. Patient's at bedside reports that he is having some difficulty at home getting around secondary to having visual issues that are chronic and generalized weakness. Discussion about nursing facility verses inpatient rehab verses home evaluation, family is interested home evaluation at this time. PT, OT, social work consult placed. Patient/ at bedside agreeable this. Patient was given verbal discharge instructions. Patient was given instructions on both prescription and [id number] medications as needed. Patient currently does not meet criteria for admission can safely be discharged home. Patient is comfortable with discharge home at this time. Patient was alert and oriented x4 on examination, vital signs were stable throughout the patient's stay, patient was neurovascularly intact on examination and ambulated at baseline with walker. Patient was given strict return criteria. Patient on evaluation showed no signs of acute distress and was stable for discharge at this time. Patient states understanding agreement with current plan/assessment/return protocol was able to repeat back in his own words. Patient was offered CT of the head and neck, patient reports that he does not believe he hit his head and does not want a CT at this time. Right hip pain: complicated acute illness or injury Amount and/or Complexity of Data Reviewed Independent Historian: spouse and EMS Details: at bedside, patient brought in by EMS External Data Reviewed: notes. Details: 12/05/2024 office visit family medicine type 2 diabetes 11/04/2024 office visit CAD 06/06/2024 office visit family medicine type 2 diabetes Radiology: ordered and independent interpretation performed. Decision-making details documented in ED Course. Details: Imaging was independently viewed and is notable for no signs of acute fracture/dislocationof hip, arthritis noted. However, pending official radiologist read. Risk OTC drugs. Prescription drug management. Decision regarding hospitalization. ED Course: ED Course as of 12/24/24437Dec 24, 2024417 X-ray hip right 2-3 views with or without pelvis IMPRESSION: * No acute fracture or dislocation. [JW] 417 X-ray knee left 3 views IMPRESSION: 1. No acute fracture nor malalignment. 2. Osteoarthritis and chondrocalcinosis. [JW] 417 X-ray knee right 3 views IMPRESSION: Tricompartmental osteoarthritic changes with medial joint space narrowing. And meniscalchondrocalcinosis [JW] ED Course User Index [JW] Jefry Veras DO Clinical Impressions as of 12/24/24437 Fall, initial encounter Right hip pain Acute pain of both knees Encounter for screening involving social determinants of health (SDoH) . ED Disposition ED Disposition Discharge Date/Time MonDec 24, 2024 4:38 AM Comment At the time of discharge, the plan has been discussed with the patient regarding the diagnosis and prognosis. All questions have been answered. Verbal discharge instructions were discussed with the patient. The patient has been advised to follow up w ith their Primary Care Provider and Specialist within 1 week. The patient was also instructed to return to the ED if their symptoms change, worsen, new symptoms arise or if they have any additional concerns. . Please note that portions of this note were completed with a voice recognition program. Efforts were made to edit the dictations but occasionally words are mis-transcribed. Jefry Veras DO 12/24/24 0441 documented in this encounter Plan of Treatment Scheduled Referrals Name Type Priority Associated Diagnoses Orde r Schedule Referral to Social Work Outpatient Referral Routine Fall, initial encounter Right hip pain Acute pain of both knees Encounter for screening involving social determinants of health (SDoH) 1 Occurrences starting 12/24/2024 until 12/24/2025 Referral to Physical Therapy Outpatient Referral Routine Fall, initial encounter Right hip pain Acute pain of both knees Encounter for screening involving social determinants of health (SDoH) Ordered: 12/24/2024 Referral to Occupational Therapy Outpatient Referral Routine Fall, initial encounter Right hip pain Acute pain of both knees Encounter for screening involving social determinants of health (SDoH) Ordered: 12/24/2024 documented as of this encounter Procedures Procedure Name Priority Date/Time Associated Diagnosis Comments XR KNEE RT 3 VWS STAT 12/24/2024 4:05 AM EDT XR KNEE LT 3 VWS STAT 12/24/2024 4:05 AM EDT XR HIP RT 2-3 VIEWS W OR WO PELVIS STAT 12/24/2024 4:05 AM EDT documented in this encounter Results * X-ray knee right 3 views (12/24/2024 4:05 AM EDT) Anatomical Region Laterality Modality Lower Extremities, MSK, Knee Right Com puted Radiography 12/24/2024 4:06 AM EDT Narrative 12/24/2024 4:07 AM EDT History: Pain Exam/Technique: Frontal lateral and oblique views of the right knee were obtained. Comparison: None Findings: There are tricompartmental osteoarthritic changes. There is medial joint space narrowing. There is chondrocalcinosis of the menisci. There is no evidence for an acute osseous abnormality. Vascular calcifications are noted. IMPRESSION: Tricompartmental osteoarthritic changes with medial joint space narrowing. And meniscal chondrocalcinosis Finalized by Laurent Natarajan MD on 12/24/2024 4:07 AM Procedure Note Laurent Natarajan MD - 12/24/2024 History: Pain Exam/Technique: Frontal lateral and oblique views of the right knee wereobtained. Comparison: None Findings: There are tricompartmental osteoarthritic changes. There ismedial joint space narrowing. There is chondrocalcinosis of the menisci.There is no evidence for an acute osseous abnormality. Vascularcalcifications are noted. IMPRESSION: Tricompartmental osteoarthritic changes with medial jointspace narrowing. And meniscal chondrocalcinosis Finalized by Laurent Natarajan MD on 12/24/2024 4:07 AM Jefry Veras DO IM[facility] DI[facility]NOSTIC [facility]AG[facility] ORDERA BLES Final Result * X-ray knee left 3 views (12/24/2024 4:05 AM EDT) Anatomical Region Laterality Modality Lower Extremities, MSK, Knee Left Com puted Radiography 12/24/2024 4:07 AM EDT Narrative 12/24/2024 4:08 AM EDT Clinical history: Status post fall, pain, decreased range of motion. Comparisons: None Findings: 3 views left knee obtained. Osteoarthritic changes are present at the lateral compartment and patellofemoral joint. There is chondrocalcinosis at the medial and lateral compartments. No acute fracture. No destructive bone lesion. No malalignment. There is no joint effusion. Dense femoral popliteal and trifurcation vessel vascular calcifications are present. IMPRESSION: 1. No acute fracture nor malalignment. 2. Osteoarthritis and chondrocalcinosis. Finalized by Ernst Carrasco MD on 12/24/2024 4:08 AM Procedure Note Ernst Carrasco MD - 12/24/2024 Clinical history: Status post fall, pain, decreased range of motion. Comparisons: None Findings: 3 views left knee obtained. Osteoarthritic changes are presentat the lateral compartment and patellofemoral joint. There ischondrocalcinosis at the medial and lateral compartments. No acutefracture. No destructive bone lesion. No malalignment. There is no jointeffusion. Dense femoral popliteal and trifurcation vessel vascular calcifications are present. IMPRESSION: 1. No acute fracture nor malalignment. 2. Osteoarthritis and chondrocalcinosis. Finalized by Ernst Carrasco MD on 12/24/2024 4:08 AM Jefry Veras DO IMG DIAGNOSTIC IMAGING ORDERA BLES Final Result * X-ray hip right 2-3 views with or without pelvis (12/24/2024 4:05 AM EDT) Anatomical Region Laterality Modality Lower Extremities, MSK, Hip Right Comp uted Radiography 12/24/2024 4:09 AM EDT Narrative 12/24/2024 4:13 AM EDT XR HIP RT 2-3 VIEWS W OR WO PELVIS HISTORY: Fall, right hip pain COMPARISON: None. TECHNIQUE: One view of the pelvis obtained. FINDINGS: No acute fracture or dislocation. Diffuse vascular calcifications are present. No aggressive osseous lesions. Degenerative changes of the lumbar spine are noted. Mild degenerative bilateral hip joints. IMPRESSION: * No acute fracture or dislocation. Approved by Resident Andrea Decker MD on 12/24/2024 4:09 AM Laurent Solorio MD have personally reviewed the image(s) and agree with and/or edited the report Finalized by Laurent Natarajan MD on 12/24/2024 4:13 AM Procedure Note Laurent Natarajan MD - 12/24/2024 XR HIP RT 2-3 VIEWS W OR WO PELVIS HISTORY: Fall, right hip pain COMPARISON: None. TECHNIQUE: One view of the pelvis obtained. FINDINGS: No acute fracture or dislocation. Diffuse vascular calcifications arepresent. No aggressive osseous lesions. Degenerative changes of the lumbarspine are noted. Mild degenerative bilateral hip joints. IMPRESSION: * No acute fracture or dislocation. Approved by Resident Andrea Decker MD on 12/24/2024 4:09 AM Laurent Solorio MD have personally reviewed the image(s) and agreewith and/or edited the report Finalized by Laurent Natarajan MD on 12/24/2024 4:13 AM us Jefry Veras DO IMG DIAGNOSTIC IMAGING ORDERA BLES Final Result documented in this encounter Visit Diagnoses Diagnosis Fall, initial encounter- Primary Right hip pain Pain in joint, pelvic region and thigh Acute pain of both knees Encounter for screening involving social determinants of health (SDoH) documented in this encounter Administered Medications Inactive Administered Medications - up to 3 most recent administrations Medication Order MAR Action Action Date Dose Rate Site acetaminophen (TYLENOL EXTRA STRENGTH) tablet 1,000 mg 1,000 mg, oral, Once, On Mon12/24/24 at 0321, For 1 dose Given 12/24/2024 3:29 AM EDT 1,000 mg documented in this encounter Active and Recently Administered Medications Times are shown in EDT. Scheduled Medication Order 12/22/2024 12/23/2024 12/24/2024 acetaminophen (TYLENOL EXTRA STRENGTH) tablet 1,000 mg (COMPLETED) 1,000 mg, oral, Once, On Mon12/24/24 at 0321, For 1 dose 0329 (Given - Provid er: Dori Ramos RN) documented in this encounter Care Teams Inspector Filter Tip Relationship Specialty Start Date End Date Kenny Brown MD PCP - General Family Medicine 05/01/18 documented as of this encounter
--- OUTSIDE RECORDS SUMMARY | 2025-01-06 14:33 | XMS_ITS | Encounter Summary ---
Author Organization [facility] Address [address] [place] [address] Care Team Providers Care Air Conditioning Specialist Name Role Phone Kenny Brown MD Primary Care Provider [phone] Kenny Brown MD Unavailable Encounter Details Date Type Department Care Team (Late Contact Info) Description 08/23/2023 Abstract [facility] [address] [place] [address] Ekaterina Cazares MD [address] [place] [address] Social History Tobacco Use Types Packs/Day Years [...] Department Care Team (Late Contact Info) Description 02/17/2025 3:15 PM EST Procedure Visit [facility] [address] [place] [id number] Sigifredo Brunner DPM [address] [place] [address] documented as of this encounter Visit Diagnoses Not on filedocumented in this encounter Care Teams Air Conditioning Specialist Relationship Specialty Start Date End Date Kenny Brown MD PCP - General Family Medicine 06/28/23 Kenny Brown MD [address] [place] [address] PCP - [employer] 07/16/21 documented as of this encounter
--- OUTSIDE RECORDS SUMMARY | 2025-01-06 14:33 | XMS_ITS | Encounter Summary ---
Author Organization [facility] Address [address] [place] [address] Care Team Providers Care Compensation Analyst Name Role Phone Terrance Horton MD Primary Care Provider [phone] Terrance Horton MD Primary Care Provider [phone] Terrance Horton MD Unavailable Encounter Details Date Type Department Care Team (Late Contact Info) Description 05/03/2023 Clinisync Result Encounter NOM External Department Unsolicited Terrance Horton MD [address] [place] [address] Social History Tobacco Use Types Packs/Day Years [...] EST Procedure Visit [facility] [address] [place] [address] Sigifredo Brunner DPM [address] [place] [address] documented as of this encounter Procedures Procedure Name Priority Date/Time Associated Diagnosis Comments NM BRANDO PERF SPECT REST STR 05/03/2023 7:57 AM EST documented in this encounter Results * NM BRANDO PERF SPECT REST STR (05/03/2023 7:57 AM EST) Anatomical Region Laterality Modality Other 05/03/2023 7:57 AM EST Narrative 05/03/2023 7:57 [place] [address] Nuclear Medicine Report Signed Patient: JAMES POPE MR#: [id number] : 1950 Acct:[id number] Age/Sex: 72 / M ADM Date: 05/02/23 Loc: NM Attending Dr: Terrance Horton M.D. Ordering Physician: Terrance Horton M.D. Date of Service: 05/02/23 Procedure(s): NM brando perf SPECT rest str Accession Number(s): [id number] cc: Terrance Horton M.D. Patient Name: JAMES POPE MR#: [id number] : 1950 Exam Date: 05/02/2023 Ordering Doctor: [...] DEFECT: LOCATION: Basal inferior. Mid-inferior. Apical inferior. [place]. SIZE: Medium (3-4 segments). SEVERITY: Moderate. TYPE: [...] Dictated By: Laurent Littlejohn M.D. Signed By: 05/03/23756 DD/ 6 TD/TT: Director Of Testing: Procedure Note Radiology, Radiologist, MD - 05/03/2023 [place] [address] Nuclear Medicine Report Signed Patient: JAMES POPE LMR#: [id number] : 9Acct:[id number] Age/Sex: 72 / MADM Date: 05/02/23 Loc: NM Attending Dr: Terrance Horton M.D. Ordering Physician: Terrance Horton M.D. Date of Service: 05/02/23 Procedure(s): NM brando perf SPECT rest str Accession Number(s): [id number] cc: Terrance Horton M.D. Patient Name: JAMES POPE MR#: [id number] : 1950 Exam Date: 05/02/2023 Ordering Doctor: [...] DEFECT: LOCATION: Basal inferior. Mid-inferior. Apical inferior. [place]. SIZE: Medium (3-4 segments). SEVERITY: Moderate. TYPE: [...] M.D. Signed By:05/03/23 0757 DD/ 0757 TD/TT: Director Of Testing: Terrance Horton MD [facility] Final Result documented in this encounter Visit Diagnoses Not on filedocumented in this encounter Care Teams Compensation Analyst Relationship Specialty Start Date End Date Terrance Horton MD PCP - General Family Medicine 11/09/22 06/27/23 Terrance Horton MD PCP - General Family Medicine 06/28/23 Terrance Horton MD [address] [place] [address] PCP - [employer] 07/16/21 documented as of this encounter
--- OUTSIDE RECORDS SUMMARY | 2025-01-06 14:33 | XMS_ITS | Encounter Summary ---
Author Organization [employer] s tem Address [id number] [address] [place] [address] Care Team Providers Care Supervisor Border Department Name Role Phone Kenny Brown MD Primary Care Provider [phone] Encounter Details Date Type Department Care Team (Latest Contact Info) Description 12/24/2024 Travel Social History Tobacco Use Types Packs/Day [...] as of this encounter Plan of Treatment Not on file documented as of this encounter Visit Diagnoses Not on filedocumented in this encounter Care Teams Supervisor Border Department Relationship Specialty Start Date End Date Kenny Brown MD PCP - General Family Medicine 05/01/18 documented as of this encounter
--- OUTSIDE RECORDS SUMMARY | 2025-01-06 14:33 | XMS_ITS | Encounter Summary ---
Author Organization [facility] Address [address] [place] [address] Care Team Providers Care Mandolin Repairer Name Role Phone Kenny Brown MD Primary Care Provider [phone] Kenny Brown MD Unavailable Encounter Details Date Type Department Care Team (Late Contact Info) Description 08/08/2023 Orders Only [facility] [address] [place] [address] Collins Diane MD [address] [place], [place] [phone] Social History Tobacco Use Types Packs/Day Years [...] EST Procedure Visit [facility] [address] [place] [address] Sigifredo Brunner DPRodolfo [address] [place], [place] [id number] documented as of this encounter Procedures Procedure [...] on filedocumented in this encounter Care Teams Mandolin Repairer Relationship Specialty Start Date End Date Kenny Brown MD PCP - General Family Medicine 06/28/23 Kenny Brown MD [address] [place] [phone] JC - [employer] 07/16/21 documented as of this encounter
--- OUTSIDE RECORDS SUMMARY | 2025-01-06 14:33 | XMS_ITS | Clinical Summary ---
Author Organization [facility] [employer] [facility] tem Address [id number] [address] [place] [address] Care Team Providers Care Storeroom Keeper Name Role Phone Kenny Brown MD Primary Care Provider [phone] Allergies No known active allergies Medications rosuvastatin [...] Active Active Problems No known active problems Encounters Date Type Department Care Team Description 12/24/2024 3:17 AM EDT - 12/24/2024 4:46 AM EDT Emergency [facility] - Emergency [address] [place] [address] Jefry Veras, DO [place], initial encounter (Primary Dx); Right hip pain; Acute pain of both knees; Encounter for screening involving social determinants of health (SDoH) Discharge Disposition: Home 12/24/2024 Travel from Last 3 Months Social History Tobacco Use Types Packs/Day Years [...] Mass Index 28.19 12/24/2024 3:25 AM EDT Plan of Treatment Health Maintenance Due Date Last Done Comments Tobacco Counseling 1950 Depression Screening 1960 DTaP,Tdap and Td Vaccines (1 - Tdap) 1967 Zoster (Shingles) Vaccine (1 of 2) 1998 Abdominal Aortic Aneurysm (AAA) Screen 2013 Fall Risk Screening 2013 Influenza Vaccine 12/16/2024 Tobacco Screening 12/24/2025 12/24/2024 Medical Devices Not on file Procedures Procedure Name Priority Date/Time Associated Diagnosis Comments XR KNEE RT 3 VWS STAT 12/24/2024 4:05 AM EDT XR KNEE LT 3 VWS STAT 12/24/2024 4:05 AM EDT XR HIP RT 2-3 VIEWS W OR WO PELVIS STAT 12/24/2024 4:05 AM EDT from Last 3 Months Results * X-ray knee right 3 views [...] on 12/24/2024 4:08 AM Jefry Veras DO IM DIAGNOSTIC IMAGING ORDERA BLES Final Result * [...] Andrea Decker MD on 12/24/2024 4:09 AM I, Laurent Natarajan MD have personally reviewed the image(s) and [...] Andrea Decker MD on 12/24/2024 4:09 AM I, Laurent Natarajan MD have personally reviewed the image(s) and agreewith and/or edited the report Finalized by Laurent Natarajan MD on 12/24/2024 4:13 AM us Jefry Veras DO IMG DIAGNOSTIC IMAGING ORDERA BLES Final Result from Last 3 Months Insurance [facility] MEDICARE Care Teams Storeroom Keeper Relationship Specialty Start Date End Date Kenny Brown MD PCP - General Family Medicine 05/01/18
--- OUTSIDE RECORDS SUMMARY | 2025-01-06 14:33 | XMS_ITS | Encounter Summary ---
Author Organization [facility] Address [address] [place] [address] Care Team Providers Care Product Design Manager Name Role Phone Kenny Brown MD Primary Care Provider [phone] Kenny Brown MD Primary Care Provider [phone] Kenny Brown MD Unavailable Encounter Details Date Type Department Care Team (Late Contact Info) Description 05/23/2023 Orders Only [facility] [address] [facility] [place] [address] Scotty Carr MD [address] [place] [address] Social History Tobacco Use Types [...] Description 02/17/2025 3:15 PM EST Procedure [facility] [address] [place] [phone] Sigifredo Brunner DPM [address] [place] [address] documented as of this encounter Procedures Procedure [...] on filedocumented in this encounter Care Teams Product Design Manager Relationship Specialty Start Date End Date Kenny Brown MD PCP - General Family Medicine 11/09/22 06/27/23 Kenny Brown MD PCP - General Family Medicine 06/28/23 Kenny Brown MD [address] [place] [address] PCP - [employer] 07/16/21 documented as of this encounter
--- OUTSIDE RECORDS SUMMARY | 2025-01-06 14:33 | XMS_ITS | Encounter Summary ---
Author Organization [facility] Address [address] [place] [address] Care Team Providers Care Family And Divorce Legal Assistant Name Role Phone Kenny Brown MD Primary Care Provider [phone] Kenny Brown MD Primary Care Provider [phone] Kenny Brown MD Unavailable Encounter Details Date Type Department Care Team (Late Contact Info) Description 11/24/2022 Abstract [facility] [address] [place] [address] Sigifredo Brunner DPM [address] [place], [place] [phone] Social History Tobacco Use Types Packs/Day Years [...] Upcoming Encounters Date Type Department Care Team ([facility] Contact Info) Description 02/17/2025 3:15 PM EST Procedure Visit [facility] [address] [place] [address] Sigifredo Brunner DPM [address] [place] [address] documented as of this encounter Visit Diagnoses Not on filedocumented in this encounter Care Teams Family And Divorce Legal Assistant Relationship Specialty Start Date End Date Kenny Brown MD PCP - General Family Medicine 11/09/22 06/27/23 Kenny Brown MD PCP - General Family Medicine 06/28/23 Kenny Brown MD [address] [facility] [place] [address] PCP - [employer] 07/16/21 documented as of this encounter
--- OUTSIDE RECORDS SUMMARY | 2025-01-06 14:33 | XMS_ITS | Encounter Summary ---
Author Organization [facility] Address [address] [place] [address] Care Team Providers Care Support Merchandiser Name Role Phone Kenny Brown MD Primary Care Provider [phone] Kenny Brown MD Unavailable Encounter Details Date Type Department Care Team (Late Contact Info) Description 08/03/2023 Orders Only [facility] [address] [place] [address] Shaikh Godinez MD [address] [facility] [place] [address] Social History Tobacco Use Types Packs/Day Years [...] EST Procedure Visit [facility] [address] [place] [address] Sigifredo Brunner DPM [address] [place], [place] [address] documented as of this encounter Procedures Procedure Name Priority Date/Time Associated Diagnosis Comments XR CHEST 1 VIEW Routine 08/02/2023 10:31 AM EDT documented in this encounter Results * XR chest 1 view (08/02/2023 10:31 AM EDT) Anatomical Region Laterality Modality Chest Radiographic Minerva ging Shaikh Herbert JEFFERS IMG XR PROCEDURES Final Result documented in this encounter Visit Diagnoses Not on filedocumented in this encounter Care Teams Support Merchandiser Relationship Specialty Start Date End Date Kenny Brown MD PCP - General Family Medicine 06/28/23 Kenny Brown MD [address] [place] [address] PCP - [employer] 07/16/21 documented as of this encounter
--- OUTSIDE RECORDS SUMMARY | 2025-01-06 14:33 | XMS_ITS | Encounter Summary ---
Author Organization [facility] Address [address] [facility] [place] [address] Care Team Providers Care Weight Guesser Name Role Phone Kenny Brown MD Primary Care Provider [phone] Kenny Brown MD Unavailable Encounter Details Date Type Department Care Team (Late Contact Info) Description 09/19/2023 Orders Only [facility] [address] [place] [address] Kenny Brown MD [address] [facility] [place] [address] Social History Tobacco Use Types Packs/Day Years [...] EST Procedure Visit [facility] [address] [place] [address] Sigifredo Brunner DPM [address] [place] [address] documented as of this encounter [...] on filedocumented in this encounter Care Teams Weight Guesser Relationship Specialty Start Date End Date Kenny Brown MD PCP - General Family Medicine 06/28/23 Kenny Brown MD [address] [place] [address] PCP - [employer] 07/16/21 documented as of this encounter
--- OUTSIDE RECORDS SUMMARY | 2025-01-06 14:33 | XMS_ITS | Encounter Summary ---
Author Organization [facility] Address [address] [place] [address] Care Team Providers Care Damper Worker Name Role Phone Kenny Brown MD Primary Care Provider [phone] Kenny Brown MD Unavailable Encounter Details Date Type Department Care Team (Late Contact Info) Description 07/31/2023 Abstract [facility] [address] [place] [address] Kenny Brown MD [address] [place] [address] Social History Tobacco Use Types Packs/Day Years [...] EST Procedure Visit [facility] [address] [place] [address] Sigifredo Brunner DPM [address] [place] [address] documented as of this encounter Visit Diagnoses Not on filedocumented in this encounter Care Teams Damper Worker Relationship Specialty Start Date End Date Kenny Brown MD PCP - General Family Medicine 06/28/23 Kenny Brown MD [address] [place] [address] PCP - [employer] 07/16/21 documented as of this encounter
--- OUTSIDE RECORDS SUMMARY | 2025-01-06 14:33 | XMS_ITS | Encounter Summary ---
Author Organization [facility] Address [address] [place] [address] Care Team Providers Care Molder Wax Ball Name Role Phone Kenny Brown MD Primary Care Provider [phone] Kenny Brown MD Primary Care Provider [phone] Kenny Brown MD Unavailable Encounter Details Date Type Department Care Team (Late Contact Info) Description 05/04/2023 Orders Only [facility] [address] [place] [address] Kenny Brown MD [address] [place] [address] Social History Tobacco Use Types Packs/Day Years [...] Upcoming Encounters Date Type Department Care Team ([facility] Contact Info) Description 02/17/2025 3:15 PM EST Procedure Visit [facility] [address] [place] [address] Sigifredo Brunner, [place] [address] [facility] [place] [address] documented as of this encounter Procedures Procedure Name Priority Date/Time Associated Diagnosis Comments STRESS CARDIAC STRESS/LEXISCAN Routine 05/02/2023 2:22 PM EST documented in this encounter Results * STRESS CARDIAC STRESS/LEXISCAN (05/02/2023 2:22 PM EST) Anatomical Region Laterality Modality Radiographic Minerva ging Kenny Brown MD IMG XR PROCEDURES Final Result documented in this encounter Visit Diagnoses Not on filedocumented in this encounter Care Teams Molder Wax Ball Relationship Specialty Start Date End Date Kenny Brown MD PCP - General Family Medicine 11/09/22 06/27/23 Kenny Brown MD PCP - General Family Medicine 06/28/23 Kenny Brown MD [address] [place] [address] PCP - [employer] 07/16/21 documented as of this encounter
--- OUTSIDE RECORDS SUMMARY | 2025-01-06 14:33 | XMS_ITS | Encounter Summary ---
Author Organization [facility] Address [address] [place] [address] Care Team Providers Care Junior Sales Representative Name Role Phone Kenny Brown MD Primary Care Provider [phone] Kenny Brown MD Primary Care Provider [phone] Kenny Brown MD Unavailable Encounter Details Date Type Department Care Team (Late Contact Info) Description 05/24/2023 Orders Only [facility] [address] [facility] [place] [address] Collins Diane MD [address] [place], [place] [address] Social History Tobacco Use Types Packs/Day Years [...] EST Procedure Visit [facility] [address] [place] [address] Sigifredo Brunner DPM [address] [place] [address] documented as of this encounter Procedures Procedure [...] on filedocumented in this encounter Care Teams Junior Sales Representative Relationship Specialty Start Date End Date Kenny Brown MD PCP - General Family Medicine 11/09/22 06/27/23 Kenny Brown MD PCP - General Family Medicine 06/28/23 Kenny Brown MD [address] [place] [address] PCP - [employer] 07/16/21 documented as of this encounter
--- OUTSIDE RECORDS SUMMARY | 2025-01-06 14:33 | XMS_ITS | Encounter Summary ---
Author Organization [facility] Address [address] [place] [address] Care Team Providers Care Bi Manager Name Role Phone Kenny Brown MD Primary Care Provider [phone] Kenny Brown MD Unavailable Encounter Details Date [...] Description 02/17/2025 3:15 PM EST [facility] [address] [place] [address] Sigifredo Brunner DPM [address] [place], [place] [address] documented as of this encounter Procedures Procedure Name Priority Date/Time Associated Diagnosis Comments CT ANGIOGRAM CHEST 11/06/2023 1: 06 PM EDT documented in this encounter Results * CT angiogram chest (11/06/2023 1:06 PM EDT) Anatomical Region Laterality Modality Body, Chest Computed Tomogra phy 11/06/2023 1:06 PM EDT Narrative 11/06/2023 1:09 PM EDT The [address] [address] [address] Scan Report Signed Patient: JAMES POPE MR#: [id number] : 1950 Acct:[id number] Age/Sex: 73 / M ADM Date: 11/03/23 Loc: LAB Attending Dr: MED VELASQUEZ Ordering Physician: MED VELASQUEZ Date of Service: 11/03/23 Procedure(s): CT angio chest Accession Number(s): [id number] cc: Kenny Brown M.D. The [place] [id number] Patient Name: JAMES POPE MRN: [id number] date: 1950 Sex: M Assigned Patient Location: LAB Current Patient Location: Accession/Order Number: [id number] Exam Date: 11/03/2023 15:43 Report Date: 11/06/2023 [...] Signed By: 11/06/23 1309 DD/ 1306 TD/TT: Cable Television Access Coordinator: Procedure Note Radiology, Radiologist, MD - 11/06/2023 [place] [address] CT Scan Report Signed Patient: JAMES POPE LMR#: [id number] : 1950cct:[id number] Age/Sex: 73 / MADM Date: 11/03/23 Loc: LAB Attending Dr: MED VELASQUEZ Ordering Physician: MED VELASQUEZ Date of Service: 11/03/23 Procedure(s): CT angio chest Accession Number(s): [id number] cc: Kenny Brown M.D. The [place] [address] Patient Name: JAMES POPE MRN: [facility]:[id number] date: 1950 Sex: M Assigned Patient Location: LAB Current Patient Location: Accession/Order Number: [id number] Exam Date: 11/03/2023 15:43 Report Date: 11/06/2023 [...] M.D. Signed By:11/06/23 1309 DD/ 1306 TD/TT: [employer] Access Coordinator: Generic External Data Provider IMG CT PROCEDURES Final Result documented in this encounter Visit Diagnoses Not on filedocumented in this encounter Care Teams Bi Manager Relationship Specialty Start Date End Date Kenny Brown MD PCP - General Family Medicine 06/28/23 Kenny Brown MD [address] [place] [address] PCP - [employer] 07/16/21 documented as of this encounter
--- OUTSIDE RECORDS SUMMARY | 2025-01-06 14:33 | XMS_ITS | Clinical Summary ---
Author Organization [facility] Healthcare Address [address] [place] [address] Care Team Providers Care Signal Tower Director Name Role Phone Kenny Brown MD Primary Care Provider [phone] Kenny Brown MD Unavailable Allergies Active Allergy Reactions Criticality Noted Date Comments Bee Venom Unknown 11/24/2022 Medications buffered aspirin (Bufferin Low Dose) 81 MG tablet Active Glucose Blood ([employer]. BLOOD GLUCOSE TEST ) Act elvia cholecalciferol [...] with meals. 60 tablet 5 5 Active metoprolol succinate XL (Toprol-XL) 25 MG 24 hr tablet Take 25 mg by mouth in the morning. 5 11/05/19 26 Active lisinopril 5 MG tablet Take 5 mg by mouth Daily Active isosorbide mononitrate ER (Imdur) 30 MG 24 hr tablet Take 30 mg by mouth in the morning. 5 11/05/19 26 Active donepezil (Aricept) 5 MG tabletIndications:S enile dementia without behavioral disturbance (HCC) Take 1 tablet (5 mg) by mouth at bedtime 30 tablet 1 5 Active Active Problems Problem Noted Date Diagnosed Date COPD (chronic obstructive pulmonary disease) Assessment & Plan (12/05/2024 2:45 PM EDT): SOB unchanged. Stressed need to stop smoking. Assessment & Plan (06/06/2024 2:10 PM EST): Check PFTs. Stressed need to stop smoking. Hyponatremia 06/28/2023 Assessment & Plan (10/03/2023 12:15 PM EDT): Labs improved and continue supplement. Benign hypertension 04/24/2023 Assessment & Plan (12/05/2024 2:44 PM EDT): BP controlled and monitor PRN. Assessment & Plan (06/06/2024 2:09 PM EST): [...] controlled and monitor PRN. Coronary atherosclerosis of mohegan coronary shahzad ry 04/24/2023 DDD (degenerative disc disease), lumbar 04/24/19 24 Dyslipidemia 04/24/2023 Persistent disorder of initiating or maintaining sleep 04/24/2023 Major depressive disorder, recurrent episode, mi ld 04/24/2023 Assessment & Plan (12/05/2024 2:45 PM EDT): Doing well without medication and monitor. Assessment & Plan (06/06/2024 2:10 PM EST): [...] behavioral disturbance 0 04/24/2023 Assessment & Plan (12/05/2024 2:45 PM EDT): Symptoms worse and try aricept. Assessment & Plan (06/06/2024 2:10 PM EST): [...] mellitus with polyneuropathy 11/2023 Assessment & Plan (12/05/2024 2:45 PM EDT): Occasional symptoms but mild and monitor. Assessment & Plan (06/06/2024 2:10 PM EST): [...] use of insulin 11/24/2022 Assessment & Plan (12/05/2024 2:45 PM EDT): Reports BS stable and due for A1C. Stick to ADA diet and limit carbs. Assessment & Plan (06/06/2024 2:10 PM EST): [...] Encounters Date Type Department Care Team Description 12/05/2024 2:00 PM EDT Office Visit [facility] [address] [place] [address] Kenny Brown MD Type 2 diabetes mellitus with hyperglycemia, without long-term current use of insulin (HCC) (Primary Dx); Benign hypertension ; Major depressive disorder, recurrent episode, mild ; 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 (HCC); Chronic obstructive pulmonary disease, unspecified COPD type (HCC); Type 2 diabetes mellitus with polyneuropathy (HCC) 12/05/2024 Bamboo flowsheet [facility] [address] [place] [address] Kenny Brown MD 12/02/2024 Clinisync Result Encounter [facility] External Department Unsolicited Provider, Generic External Data 11/29/2024 Clinisync Result Encounter [facility] External Department Unsolicited Provider, Generic External Data 10/30/2024 Clinisync Result Encounter [facility] External Department Unsolicited Provider, Generic External Data 10/29/2024 Clinisync Result Encounter [facility] External Department Unsolicited Provider, Generic External Data 10/28/2024 3:15 PM EDT Procedure Visit [facility] [address] [place] [phone] Sigifredo Brunner DPM Dermatophytosis of nail (Primary Dx); Dystrophic nail; Pain around toenail, right foot; Pain around toenail, left foot 10/28/2024 Bamboo flowsheet [facility] [address] [place] [address] Sigifredo Brunner DPM 10/28/2024 Travel from Last 3 Months Family History [...] Sign Reading Time Taken Comments Blood Pressure 122/64 12/05/2024 2:08 PM EDT Pulse 51 12/05/2024 2:08 PM EDT Temperature 36.6 C (97.8 F) 12/05/2024 2:08 PM EDT Respiratory Rate 16 12/05/2024 2:08 PM EDT Oxygen Saturation 98% 12/05/2024 2:08 PM EDT Inhaled Oxygen Concentration - - Weight 84.4 kg (186 lb) 12/05/2024 2:08 PM EDT Height 170.2 cm (5' 7 ) 12/05/2024 2:08 PM EDT Body Mass Index 29.13 12/05/2024 2:08 PM EDT Plan of Treatment Upcoming Encounters Date Type Department Care Team (Late st Contact Info) Description 02/17/2025 3:15 PM EST Procedure Visit [facility] [address] [place] [phone] Sigifredo Brunner DPM [address] [place] [address] Health Maintenance Due Date Last Done Comments Pneumococcal Vaccine: 65+ Ye ars (1 of 2 - PCV) 1969 Diabetes: Hemoglobin A1C 12/03/2024 06/05/2024, 0804/2023 Diabetes: Urine Protein Screening 12/10/2024 024 Influenza Vaccine (#1) 2024 Diabetes: Retinopathy Screening 02/20/2025 3 Procedures Procedure Name Priority Date/Time Associated Diagnosis Comments NM IRENE PERF SPECT REST STR 12/02/2024 2:01 PM EDT CA ECHO DOPPLER COMPLETE 11/29/2024 9:[address] ANGIOGRAM CHEST 10/30/2024 8: 15 AM EDT [facility] CREATININE Routine 10/29/2024 1:54 PM EDT from Last 3 Months Results * NM IRENE PERF SPECT REST STR (12/02/2024 2:01 PM EDT) Anatomical Region Laterality Modality Other 12/02/2024 2:01 PM EDT Narrative 12/02/2024 2:02 [place] [address] Nuclear Medicine Report Signed Patient: JAMES POPE MR#: [id number] : 1950 Acct:[id number] Age/Sex: 74 / M ADM Date: 11/27/24 Loc: [place] Attending Dr: WYATT PHILLIPS Ordering Physician: WYATT PHILLIPS Date of Service: 11/27/24 Procedure(s): NM irene perf SPECT rest str Accession Number(s): [id number] cc: WYATT PHILLIPS; Kenny Brown M.D. Patient Name: JAMES POPE MR#: [id number] : 1950 Exam Date: 11/27/2024 Ordering Doctor: DR WYATT PHILLIPS M.D. RADIOLOGY REPORT PROCEDURE: NM IRENE PERF SPECT REST STR COMPARISON: None. INDICATIONS: CORONARY ARTERY DISEASE, CHEST PAIN TECHNIQUE: Exam Description: Stress/Rest one day protocol gated SPECT Rest Imagin.9 mCi Tc-99m Cardiolite IV on 11/27/2024 Stress Imaging 30.3 mCi Tc-99m Cardiolite IV on 11/27/2024 Exercise Protocol: 0.4 mg Lexiscan given IV Heart Rate (bpm): Rest: 54 Max: 75 PMHR: 52 Blood Pressure: Rest: 146/75 Max: 146/75 Symptoms: Rest and peak stress ECG findings were pending, and the exercise portion of the study was pending per attending physician [facility]. For more details, please see separate cardiac stress test report. FINDINGS: QUALITY OF STUDY: Good PERFUSION DEFECT: LOCATION: Inferoapical SIZE: Large SEVERITY: Severe TYPE: Fixed; consistent with infarct WALL MOTION: Hypokinesis of the inferoapex LV SIZE: 157 mL. TID / TCD: 0.9 LVEF: Calculated EF 44%. SUMMARY: Myocardial perfusion imaging study is abnormal CONCLUSION: 1. Myocardial perfusion is abnormal; there is a fixed inferoapical perfusion defect seen consistent with infarct 2. No significant ischemia is seen 3. Normal left ventricular systolic function is mildly reduced; EF is 44% 4. No significant transient ischemic dilatation Dictated by: Juancarlos Noble M.D. on 12/02/2024 at 13:57 Approved by: Juancarlos Noble M.D. on 12/02/2024 at 14:01 Dictated By: Juancarlos Noble M.D. Signed By: 12/02/24 1402 DD/ 1401 TD/TT: Fairing Man: Procedure Note Radiology, Radiologist, - 12/02/2024 [place] [address] Nuclear Medicine Report Signed Patient: JAMES POPE LMR#: [id number] : 1950cct:[id number] Age/Sex: 74 / MADM Date: 11/27/24 Loc: [place] Attending Dr: WYATT PHILLIPS Ordering Physician: WYATT PHILLIPS Date of Service: 11/27/24 Procedure(s): NM irene perf SPECT rest str Accession Number(s): [id number] cc: WYATT PHILLIPS; Kenny Brown M.D. Patient Name: JAMES POPE MR#: [id number] : 1950 Exam Date: 11/27/2024 Ordering Doctor: DR WYATT PHILLIPS M.D. RADIOLOGY REPORT PROCEDURE: NM IRENE PERF SPECT REST STR COMPARISON: None. INDICATIONS: CORONARY ARTERY DISEASE, CHEST PAIN TECHNIQUE: Exam Description: Stress/Rest one day protocol gated SPECT Rest Imagin.9 mCi Tc-99m Cardiolite IV on 11/27/2024 Stress Imaging 30.3 mCi Tc-99m Cardiolite IV on 11/27/2024 Exercise Protocol: 0.4 mg Lexiscan given IV Heart Rate (bpm): Rest: 54 Max: 75 PMHR: 52 Blood Pressure: Rest: 146/75 Max: 146/75 Symptoms: Rest and peak stress ECG findings were pending, and the exercise portionof the study was pending per attending physician [facility]. For more details,please see separate cardiac stress test report. FINDINGS: QUALITY OF STUDY: Good PERFUSION DEFECT: LOCATION: Inferoapical SIZE: Large SEVERITY: Severe TYPE: Fixed; consistent with infarct WALL MOTION: Hypokinesis of the inferoapex LV SIZE: 157 mL. TID / TCD: 0.9 LVEF: Calculated EF 44%. SUMMARY: Myocardial perfusion imaging study is abnormal CONCLUSION: 1. Myocardial perfusion is abnormal; there is a fixed inferoapicalperfusion defect seen consistent with infarct 2. No significant ischemia is seen 3. Normal left ventricular systolic function is mildly reduced; EF is 44% 4. No significant transient ischemic dilatation Dictated by: Juancarlos Noble M.D. on 12/02/2024 at 13:57 Approved by: Juancarlos Noble M.D. on 12/02/2024 at 14:01 Dictated By: Juancarlos Noble M.D. Signed By:12/02/24 1402 DD/ 1401 TD/TT: Fairing Man: us Generic External Data Provider [facility] Final Result * CA ECHO DOPPLER COMPLETE (11/29/2024 9:11 PM EDT) Anatomical Region Laterality Modality Other 11/29/2024 9:11 PM EDT Narrative 11/29/2024 9:12 [place] [address] Cardiology Report Signed Patient: JAMES POPE MR#: [id number] : 1950 Acct:[id number] Age/Sex: 74 / M ADM Date: 11/27/24 Loc: [place] Attending Dr: WYATT PHILLIPS Ordering Physician: WYATT PHILLIPS Date of Service: 11/27/24 Procedure(s): CA echo doppler complete Accession Number(s): [id number] cc: WYATT PHILLIPS; Kenny Brown M.D. Patient Name: JAMES POPE MR#: [id number] : 1950 Exam Date: 11/27/2024 Ordering Doctor: DR WYATT PHILLIPS M.D. ECHOCARDIOGRAM REPORT PROCEDURE: CA ECHO DOPPLER COMPLETE INDICATIONS: Bicuspid aorta valve COMPARISON: None. DESCRIPTION: COMPLETE ECHOCARDIOGRAM Real-time transthoracic echocardiography with 2D, M-mode, spectral and color flow Doppler performed. QUALITY: Technical quality was good. LEFT VENTRICLE: Normal chamber size. Thickened septal wall. Mild concentric hypertrophy. Global left ventricular systolic function is normal. LV EF: Estimated left ventricular ejection fraction is 55 to 60%. DIASTOLIC: Diastolic function is indeterminate. ATRIAL SEPTUM: LEFT ATRIUM: Mild dilatation. RIGHT ATRIUM: Mild dilatation. RIGHT VENTRICLE: Mild dilatation. Normal right ventricular systolic function. TRICUSPID VALVE: Normal mobility and thickness. No stenosis with no regurgitation. RVSP not calculated due to lack of measurable tricuspid regurgitation. MITRAL VALVE: Normal mobility and thickness. No evidence of mitral valve stenosis. There is no mitral annular calcification. Mild mitral regurgitation. AORTIC VALVE: Bicuspid aortic valve, Max type 0 [no raphae, fusion of the left and noncoronary cusps]. No visible sclerosis. No evidence of aortic valve stenosis. Mild to moderate aortic regurgitation. AORTIC ROOT: Moderately dilated, measuring 4.4 cm. The ascending aorta is mildly dilated measuring 4.1cm. The aortic arch is dilated measuring 4.1cm. PULMONIC VALVE: Normal thickness and mobility. No stenosis. No regurgitation. PERICARDIUM: No evidence of pericardial effusion. IVC: Not well visualized. PLEURA: CONCLUSION: 1. Mild concentric left ventricular hypertrophy with normal systolic function. LVEF is estimated at 55 to 60%. 2. Normal right ventricular size and systolic function. 3. Mild biatrial dilatation. 4. Bicuspid aortic valve with mild to moderate regurgitation and no stenosis. 5. Moderately dilated aortic root [4.4 cm], with mildly dilated ascending aorta [4.1 cm]. 6. Unable to assess right-sided pressures due to lack of measurable tricuspid regurgitation. Adult Echocardiography Procedure Report Left Ventricle LVEDD (3.7 - 5.6 cm): 5.27 cm LVESD (2.2 - 4.0 cm): 3.84 cm LVIVS thickness (0.6 - 1.2 cm): 1.53 cm LVPW thickness (0.5 - 1.0 cm): 0.97 cm e': 0.10 m/s E - e': 5.52 LVOT Max Gradient: 3.18 mm[Hg] LVOT Area (cm2): 0.89 m/s Peak Velocity (LVOT): 0.89 m/s Mean Velocity (LVOT): 0.51 m/s LVOT Diameter 2.63 cm Left Ventricular Ejection Fraction: 55-60 % Left Atrium LA Volume Index (2D A2C): 44.61 ml/m2 Left Atrium Systolic Dimension: 4.37 cm Mitral Valve MV E to A Ratio: 0.53 Mitral Valve A-Wave Peak Velocity: 1.02 m/s Mitral Valve E-Wave Peak Velocity: 0.54 m/s Right Ventricle RV Internal Diastolic Dimension: 4.12 cm Aorta AO Root Diam: 4.36 cm Ascending Ao Diam: 4.07 cm Aortic Valve AoV Area (Peak Samir): 4.06 cm2, 4.06 cm2 AoV Area (VTI): 3.67 cm2, 3.67 cm2 Deceleration [place]ron: 2.10 m/s2 Pressure Half-Time: 515.55 ms Peak Velocity(Antegrade Flow): 1.19 m/s Peak Gradient(Antegrade Flow): 5.64 mm[Hg] Mean Velocity(Antegrade Flow): 0.73 m/s Mean Gradient(Antegrade Flow): 2.58 mm[Hg] Velocity Time Integral: 24.98 cm Tricuspid Valve Pulmonic Valve Mean Gradient: 1.54 mm[Hg] Mean Velocity: 0.57 m/s Peak Velocity: 0.84 m/s Peak Gradient: 2.80 mm[Hg] Right Atrium Right Atrium Systolic Pressure: 50.75 ml, 50.75 ml Dictated by: Wyatt Phillips M.D. on 11/29/2024 at 21:05 Approved by: Wyatt Phillips M.D. on 11/29/2024 at 21:11 Dictated By: WYATT PHILLIPS Signed By: 11/29/242111 DD/ 10 TD/TT: Fairing Man: Procedure Note Radiology, Radiologist, MD - 11/29/2024 [place] [address] Cardiology Report Signed Patient: JAMES POPE LMR#: [id number] : 9Acct:[id number] Age/Sex: 74 / MADM Date: 11/27/24 Loc: [place] Attending Dr: WYATT PHILLIPS Ordering Physician: WYATT PHILLIPS Date of Service: 11/27/24 Procedure(s): CA echo doppler complete Accession Number(s): [id number] cc: WYATT PHILLIPS; Kenny Brown M.D. Patient Name: JAMES POPE MR#: [id number] : 1950 Exam Date: 11/27/2024 Ordering Doctor: DR WYATT PHILLIPS M.D. ECHOCARDIOGRAM REPORT PROCEDURE: CA ECHO DOPPLER COMPLETE INDICATIONS: Bicuspid aorta valve COMPARISON: None. DESCRIPTION: COMPLETE ECHOCARDIOGRAM Real-time transthoracic echocardiography with 2D, M-mode, spectral and color flow Dopplerperformed. QUALITY: Technical quality was good. LEFT VENTRICLE: Normal chamber size. Thickened septal wall. Mild concentric hypertrophy. Global left ventricular systolic function isnormal. LV EF: Estimated left ventricular ejection fraction is 55 to 60%. DIASTOLIC: Diastolic function is indeterminate. ATRIAL SEPTUM: LEFT ATRIUM: Mild dilatation. RIGHT ATRIUM: Mild dilatation. RIGHT VENTRICLE: Mild dilatation. Normal right ventricular systolic function. TRICUSPID VALVE: Normal mobility and thickness. No stenosis with no regurgitation. RVSP not calculated due to lack of measurable tricuspid regurgitation. MITRAL VALVE: Normal mobility and thickness. No evidence of mitralvalve stenosis. There is no mitral annular calcification. Mild mitral regurgitation. AORTIC VALVE: Bicuspid aortic valve, Max type 0 [no raphae, fusionof the left and noncoronary cusps]. No visible sclerosis. No evidence of aortic valve stenosis. Mild to moderate aortic regurgitation. AORTIC ROOT: Moderately dilated, measuring 4.4 cm. The ascending aortais mildly dilated measuring 4.1cm. The aortic arch is dilated measuring4.1cm. PULMONIC VALVE: Normal thickness and mobility. No stenosis. No regurgitation. PERICARDIUM: No evidence of pericardial effusion. IVC: Not well visualized. PLEURA: CONCLUSION: 1. Mild concentric left ventricular hypertrophy with normal systolicfunction. LVEF is estimated at 55 to 60%. 2. Normal right ventricular size and systolic function. 3. Mild biatrial dilatation. 4. Bicuspid aortic valve with mild to moderate regurgitation and nostenosis. 5. Moderately dilated aortic root [4.4 cm], with mildly dilated ascending aorta [4.1 cm]. 6. Unable to assess right-sided pressures due to lack of measurabletricuspid regurgitation. Adult Echocardiography Procedure Report Left Ventricle LVEDD (3.7 - 5.6 cm): 5.27 cm LVESD (2.2 - 4.0 cm): 3.84 cm LVIVS thickness (0.6 - 1.2 cm): 1.53 cm LVPW thickness (0.5 - 1.0 cm): 0.97 cm e': 0.10 m/s E - e': 5.52 LVOT Max Gradient: 3.18 mm[Hg] LVOT Area (cm2): 0.89 m/s Peak Velocity (LVOT): 0.89 m/s Mean Velocity (LVOT): 0.51 m/s LVOT Diameter 2.63 cm Left Ventricular Ejection Fraction: 55-60 % Left Atrium LA Volume Index (2D A2C): 44.61 ml/m2 Left Atrium Systolic Dimension: 4.37 cm Mitral Valve MV E to A Ratio: 0.53 Mitral Valve A-Wave Peak Velocity: 1.02 m/s Mitral Valve E-Wave Peak Velocity: 0.54 m/s Right Ventricle RV Internal Diastolic Dimension: 4.12 cm Aorta AO Root Diam: 4.36 cm Ascending Ao Diam: 4.07 cm Aortic Valve AoV Area (Peak Samir): 4.06 cm2, 4.06 cm2 AoV Area (VTI): 3.67 cm2, 3.67 cm2 Deceleration [place]: 2.10 m/s2 Pressure Half-Time: 515.55 ms Peak Velocity(Antegrade Flow): 1.19 m/s Peak Gradient(Antegrade Flow): 5.64 mm[Hg] Mean Velocity(Antegrade Flow): 0.73 m/s Mean Gradient(Antegrade Flow): 2.58 mm[Hg] Velocity Time Integral: 24.98 cm Tricuspid Valve Pulmonic Valve Mean Gradient: 1.54 mm[Hg] Mean Velocity: 0.57 m/s Peak Velocity: 0.84 m/s Peak Gradient: 2.80 mm[Hg] Right Atrium Right Atrium Systolic Pressure: 50.75 ml, 50.75 ml Dictated by: Wyatt Phillips M.D. on 11/29/2024 at 21:05 Approved by: Wyatt Phillips M.D. on 11/29/2024 at 21:11 Dictated By: WYATT PHILLIPS Signed By:11/29/242111 DD/ 10 TD/TT: Fairing Man: Generic External Data Provider [facility] Final Result * CT angiogram chest (10/30/2024 8:15 AM EDT) Anatomical Region Laterality Modality Body, Chest Computed Tomogra phy 10/30/2024 8:15 AM EDT Narrative 10/30/2024 8:17 [place] [address] CT Scan Report Signed Patient: JAMES POPE MR#: [id number] : 1950 Acct:[id number] Age/Sex: 74 / M ADM Date: 10/29/24 Loc: LAB Attending Dr: WYATT PHILLIPS Ordering Physician: WYATT PHILLIPS Date of Service: 10/29/24 Procedure(s): CT angio chest Accession Number(s): [id number] cc: Kenny Brown M.D. [address] [address] Patient Name: JAMES POPE MRN: [id number] date: 1950 Sex: M Assigned Patient Location: LAB Current Patient Location: Accession/Order Number: [id number] Exam Date: 10/30/2024 08:03 Report Date: 10/30/2024 08:15 At the request of: WYATT PHILLIPS Procedure: CT angio chest CTA CHEST WITH [...] 10/30/2024 8:15 AM Dictation Location: [place] [address] Electronically authenticated by: [id number] Y Date: 10/30/2024 08:15 Dictated By: Jolie Lester M.D. Signed By: 10/30/24 0817 DD/ TD/TT: Fairing Man: Procedure Note Radiology, Radiologist, MD - 10/30/2024 [place] [address] CT Scan Report Signed Patient: JAMES POPE LMR#: [id number] : 9Acct:[id number] Age/Sex: 74 / MADM Date: 10/29/24 Loc: LAB Attending Dr: WYATT PHILLIPS Ordering Physician: WYATT PHILLIPS Date of Service: 10/29/24 Procedure(s): CT angio chest Accession Number(s): [id number] cc: Kenny Brown M.D. [place] [id number] Patient Name: JAMES POPE MRN: [id number] date: 1950 Sex: M Assigned Patient Location: LAB Current Patient Location: Accession/Order Number: [id number] Exam Date: 10/30/2024 08:03 Report Date: 10/30/2024 08:15 At the request of: WYATT PHILLIPS Procedure: CT angio chest CTA CHEST WITH [...] 10/30/2024 8:15 AM Dictation Location: [place] [address] Electronically authenticated by: [id number] Y Date: 508:15 Dictated By: Jolie Lester M.D. Signed By:10/30/24816 DD/ 4 TD/TT: Fairing Man: us Generic External Data Provider IMG CT PROCEDURES Final Result * [facility] CREATININE (10/29/2024 1:54 PM EDT) CREATININE 0.97 0.70 - 1.30 mg/dL [facility] EGFR-AF IRANIAN >60 >=60 mL/min/1.7 3m 2 [facility] EGFR-NON AF IRANIAN >60 >=60 mL/min/1.7 3m 2 [facility] 10/29/2024 1:54 PM EDT 10/29/2024 1:55 PM EDT Narrative [facility] - 10/29/2024 2:16 PM EDT Generic External Data Provider EDUARDO [place] Result [facility] from Last 3 Months Insurance [facility] MEDICARE ADVANTAGE Care Teams Signal Tower Director Relationship Specialty Start Date End Date Kenny Brown MD PCP - General Family Medicine 06/28/23 Kenny Brown MD [address] [place] [address] PCP - [employer] 07/16/21
--- OUTSIDE RECORDS SUMMARY | 2025-01-06 14:33 | XMS_ITS | Encounter Summary ---
Author Organization [employer] Address [id number] [address] [place] [address] Care Team Providers Care Analytical Chemistry Teacher Name Role Phone Kenny Brown MD Primary Care Provider Reason for Visit * Reason Onset Date Comments Hospital Follow-up 05/25/2023 Encounter Details Date Type Department Care Team (Late st Contact Info) Description 05/25/2023 Telephone [facility] Neurology [address] [place] [address] [facility] [...] patient needs to follow up with in [place] for Dementia Evaluation. However, there are no [...] ER follow up regarding Altered Mental Status. [facility], so will need labs, EEG results, [...] on filedocumented in this encounter Care Teams Analytical Chemistry Teacher Relationship Specialty Start Date End Date Kenny Brown MD PCP - General Family Medicine 05/01/18 documented as of this encounter
--- OUTSIDE RECORDS SUMMARY | 2025-01-06 14:35 | XMS_ITS | CCD ---
Author Organization [facility] Care Team Providers Care Manager Of Learning Name Role Phone CAREY TREVIÑO Unavailable Unavailable [...] Consulting Unavailable NADEREAde, KENNY Primary Care Unavailable FARRUKH RODRIGUEZ Consulting Unavailable INPATIENT, TELENEUROLOGY Consulting Unavail able Kenny Horton MD Primary Care Provider SIGIFREDO BRUNNER Attending Unavailable NADERER, KENNY Attending Unavailable RUSHER, SIGIFREDO Jones Attending Unavailable NADERER, KENNY Attending Unavailable RUSHER, SIGIFREDO Jones Attending Unavailable NADERER, KENNY Attending Unavailable KATHY PAZ Attending Unavailable MOUKARBELWYATT Attending Unavailable NADERER, KENNY Primary Care Unavailable CAREY ROWE Attending Unavailable Allergies Allergy Classification Reported Allergen(s) Allergy Type Date of Onset Reaction(s) Facility (1 source) bee venom Drug allergy (disorder) [facility] Repository (1 source) Iodine (And Iodine Containting Drugs) Drug allergy (disorder) [facility] Repository (20 sources) Honey bee venom Allergy [...] Units by mouth in the morning. Active donepezil hydrochloride 5 mg oral tablet (2 sources) Start: 12-05-2024 take 1 tablet by mouth at bedtime donepezil (Aricept) 5 MG tablet Indications: 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 (HCC) Take 1 tablet (5 mg) by mouth at bedtime 30 tablet 1 12/05/2024 Active Glucose Blood (PRODIGY BLOOD GLUCOSE TEST ) (20 sources) Glucose Blood (PRODIGY BLOOD GLUCOSE TEST ) Active 24 hr isosorbide mononitrate 30 mg extended release oral tablet (2 sources) Nitrate Vasodilator Start: 11-04-2024 End: 11-04-2025 take 1 tablet by mouth in the morning, then take 1 tablet by mouth every twenty-four hours isosorbide mononitrate ER (Imdur) 30 MG 24 hr tablet Take 30 mg by mouth in the morning. 11/04/2024 11/04/2025 Active lisinopril 5 mg oral tablet (2 sources) Angiotensin Converting Enzyme Inhibitor take 1 tablet by mouth once daily lisinopril 5 MG tablet Take 5 mg by mouth Daily Active metFORMIN hydrochloride 500 mg oral tablet [...] in the evening. Take with meals. Active 24 hr metoprolol succinate 25 mg extended release oral tablet (2 sources) beta-Adrenergic Zander Start: 11-04-2024 End: 11-04-2025 take 1 tablet by mouth every twenty-four hours in the morning metoprolol succinate XL (Toprol-XL) 25 MG 24 hr tablet Take 25 mg by mouth in the morning. 11/04/2024 11/04/2025 Active rosuvastatin calcium 20 mg oral tablet [...] Chronic Chronic obstructive pulmonary disease and bronchiectasis (15 sources) Chronic obstructive lung disease; 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: [Chronic obstructive pulmonary disease, unspecified] Onset: 06-06-2024 06-06-2024 Chronic Coagulation and hemorrhagic disorders (1 source) Thrombocytopenia, unspecified; 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: [Thrombocytopenia, unspecified] Onset: 06-15-2017 Chronic Coronary atherosclerosis and other heart disease (20 sources) Atherosclerotic heart disease of [place] coronary artery without angina pectoris; 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: [Coronary [...] NO PERF/ABSC W/O BL] Onset: 05-03-2022 Chronic E Codes: Fall (1 source) Unspecified fall, initial encounter; 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: [Unspecified fall, initial encounter] Onset: 12-24-2024 Episodic E Codes: Fall (1 source) Fall Onset: 12-24-2024 Essential hypertension (20 sources) Essential (primary) hypertension; [...] unguium] 02-20-2024 Episodic Other aftercare (1 source) skilled nursing (current) use of aspirin; 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: [DAIRY [employer] WORK[employer] CURRENT USE OF ASPIRIN] Onset: 05-03-2022 Episodic Other aftercare (1 source) Other long-term (current) drug therapy; 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: [OTH [facility] CURRENT DRUG THERAPY] Onset: 01-17-2023 Episodic Other aftercare (1 source) 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; 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: [[facility] USE ORAL HYPOGLYCEMIC DX] Onset: 05-03-2022 Episodic Other aftercare (20 sources) Patient encounter status; Translations: [Encounter for screening for malignant neoplasm of prostate] Onset: 04-24-2023 04-24-2023 Episodic Other connective tissue disease (6 sources) Pain in toe; Translations: [Pain in right toe(s)] 02-20-2024 Episodic Other gastrointestinal disorders (3 sources) Diarrhea, unspecified; Translations: [DIARRHEA UNSPECIFIED] Onset: 05-01-2022 Episodic Other non-traumatic joint disorders (1 source) Pain in right hip; Translations: [Pain in right hip] Onset: 12-24-2024 Episodic Other non-traumatic joint disorders (1 source) Pain in right knee; Translations: [Pain in right knee] Onset: 12-24-2024 Episodic Other non-traumatic joint disorders (1 source) Pain in left knee; Translations: [Pain in left knee] Onset: 12-24-2024 Episodic Other skin disorders (3 sources) Dystrophia [...] the ascending aorta, without rupture] Onset: 11-04-2024 Unclassified (1 source) EMS Onset: 12-24-2024 Past or Other Problems Problem Classification Problem [...] 04-24-2023 Resolved: 06-06-2024 04-24-2023 Episodic Other aftercare (20 sources) Long-term current use of drug therapy; Translations: [Other long-term (current) drug therapy] Onset: 04-24-2023 04-24-2023 Episodic Other injuries and [...] Test Name Value Interpretation Reference Range Facility XR HIP RT 2-3 VIEWS W OR WO PELVISon 12-24-2024 XR HIP RT 2-3 VIEWS W OR WO PELVIS XR HIP RT 2-3 VIEWS W OR WO PELVIS XR HIP RT 2-3 VIEWS W OR [...] Laurent Natarajan MD on 12/24/2024 4:13 AM Normal [facility] XR KNEE LT 3 VWSon 5 XR KNEE LT 3 VWS XR KNEE LT 3 VWS Clinical history: Status post fall, pain, decreased [...] Ernst Carrasco MD on 12/24/2024 4:08 AM Normal [facility] XR KNEE RT 3 VWSon 5 XR KNEE RT 3 VWS XR KNEE RT 3 VWS History: Pain Exam/Technique: Frontal lateral and oblique [...] Laurent Natarajan MD on 12/24/2024 4:07 AM Normal [facility] 36 12-10-2024 36 Wyatt Stallings MD to Niki Phillips MA (Selected Message) 12/09/24 3:13 PM The stress test is similar to last year's test. If he has been free from symptoms then I will see him as planned. Spoke to patient advised of stress test findings per Dr. Rubalcava request. verbalized understanding Normal [facility] NM IRENE PERF SPECT REST STRon 12-02-2024 [place] [address] Nuclear Medicine Report Signed Patient: JAMES BARROS MR#: [id number] : 1950 Acct:[id number] Age/Sex: 74 / M ADM Date: 11/27/24 Loc: [place] Attending Dr: WYATT STALLINGS Ordering Physician: WYATT STALLINGS Date of Service: 11/27/24 Procedure(s): NM irene perf SPECT rest str Accession Number(s): [id number] cc: WYATT STALLINGS; Kenny Horton M.D. Patient Name: JAMES BARROS MR#: [id number] : 1950 Exam Date: 11/27/2024 Ordering Doctor: DR WYATT STALLINGS M.D. RADIOLOGY REPORT PROCEDURE: NM IRENE PERF [...] the study was pending per attending physician [facility]. For more details, please see separate cardiac [...] Signed By: 12/02/24 1402 DD/ 1401 TD/TT: Precipitator Operator: [facility] Radiology, Everardo trimble MD - 12/02/2024 [place] [address] Nuclear Medicine Report Signed Patient: JAMES BARROS MR#: [id number] : 1950 Acct:[id number] Age/Sex: 74 / M ADM Date: 11/27/24 Loc: NM Attending Dr: WYATT STALLINGS Ordering Physician: WYATT STALLINGS Date of Service: 11/27/24 Procedure(s): NM irene perf SPECT rest str Accession Number(s): [id number] cc: WYATT STALLINGS; Kenny Horton M.D. Patient Name: JAMES BARROS MR#: [id number] : 1950 Exam Date: 11/27/2024 Ordering Doctor: DR WYATT STALLINGS M.D. RADIOLOGY REPORT PROCEDURE: NM IRENE PERF [...] the study was pending per attending physician [facility]. For more details, please see separate cardiac [...] Signed By: 12/02/24 1402 DD/ 1401 TD/TT: Precipitator Operator: [facility] Radiology Study observation (narrative) [facility] IRENE PERF SPECT REST STROr dered By: Radiologist Radiology on 12-02-2024 [facility] Work Phone: Orders Onlyon 12-02-2024 Orders Only [id number] James Barros 1950 M Date Provider Department Center 12/02/2024 [id number], HISTORICAL [facility] Family History Problem Relation Age of Onset Heart attack Maternal Grandfather Family Status - Relation Status Age at Mother Father Maternal Grandfather Normal [facility] CA ECHO DOPPLER COMPLETEon 0 11-29-2024 [facility] [address] [place] [address] Cardiology Report Signed Patient: JAMES BARROS MR#: [id number] : 1950 Acct:[id number] Age/Sex: 74 / M ADM Date: 11/27/24 Loc: NM Attending Dr: WYATT STALLINGS Ordering Physician: WYATT STALLINGS Date of Service: 11/27/24 Procedure(s): CA echo doppler complete Accession Number(s): [id number] cc: WYATT STALLINGS; Kenny Horton M.D. Patient Name: JAMES BARROS MR#: [id number] : 1950 Exam Date: 11/27/2024 Ordering Doctor: DR WYATT STALLINGS M.D. ECHOCARDIOGRAM REPORT PROCEDURE: CA ECHO DOPPLER [...] Area (VTI): 3.67 cm2, 3.67 cm2 Deceleration [place]: 2.10 m/s2 Pressure Half-Time: 515.55 ms Peak Velocity(Antegrade Flow): 1.19 m/s Peak Gradient(Antegrade Flow): 5.64 mm[Hg] Mean Velocity(Antegrade Flow): 0.73 m/s Mean Gradient(Antegrade Flow): 2.58 mm[Hg] Velocity Time Integral: 24.98 cm Tricuspid Valve Pulmonic Valve Mean Gradient: 1.54 mm[Hg] Mean Velocity: 0.57 m/s Peak Velocit (more content not included)... [facility] Radiology, Radiologi MD nai - 11/29/2024 [place] [address] Cardiology Report Signed Patient: JAMES BARROS MR#: [id number] : 1950 Acct:[id number] Age/Sex: 74 / M ADM Date: 11/27/24 Loc: [place] Attending Dr: WYATT STALLINGS Ordering Physician: WYATT STALLINGS Date of Service: 11/27/24 Procedure(s): CA echo doppler complete Accession Number(s): [id number] cc: WYATT STALLINGS; Kenny Horton M.D. Patient Name: JAMES BARROS MR#: [id number] : 1950 Exam Date: 11/27/2024 Ordering Doctor: DR WYATT STALLINGS M.D. ECHOCARDIOGRAM REPORT PROCEDURE: CA ECHO DOPPLER [...] Area (VTI): 3.67 cm2, 3.67 cm2 Deceleration [place]: 2.10 m/s2 Pressure Half-Time: 515.55 ms Peak [...] 50.75 ml, 50.75 ml Dictated by: Wyatt Stallings M.D. on 11/29/2024 at 21:05 Approved by: Wyatt Stallings M.D. on 11/29/2024 at 21:11 Dictated By: WYATT STALLINGS Signed By: 11/29/242111 DD/ 10 TD/TT: Precipitator Operator: [facility] Radiology Study observation (narrative) [facility] CA ECHO DOPPLER COMPLETEOrde red By: Radiologist Radiology on 11-29-2024 [facility] Work Phone: Office Visiton 11-04-2024 Follow-up visit [id number] James Barros 1950 M Date Provider Department Center 11/04/2024 WYATT LOERA [facility] Family History Problem Relation Age of Onset Heart attack Maternal Grandfather Family Status - Relation Status Age at Mother Father Maternal Grandfather Level of Service:99906 [place] OFFICE/OUTPATIENT ESTABLISHED MOD MDM 30 MIN Normal [facility] Abstracton 10-30-2024 Abstract [id number] James Barros 1950 M Date Provider Department Center 10/30/2024 WYATT LOERA [facility] Family History Problem Relation Age of Onset Heart attack Maternal Grandfather Family Status - Relation Status Age at Maternal Grandfather Normal [facility] CTA Chest vessels WO and W c ontrast Alcides 10-30-2024 [place] [address] CT Scan Report Signed Patient: JAMES BARROS MR#: [id number] : 1950 Acct:[id number] Age/Sex: 74 / M ADM Date: 10/29/24 Loc: LAB Attending Dr: WYATT STALLINGS Ordering Physician: WYATT STALLINGS Date of Service: 10/29/24 Procedure(s): CT angio chest Accession Number(s): [id number] cc: Kenny Horton M.D. [place] [id number] Patient Name: JAMES BARROS MRN: [facility]:[id number] date: 1950 Sex: M Assigned Patient Location: LAB Current Patient Location: Accession/Order Number: [id number] Exam Date: 10/30/2024 08:03 Report Date: 10/30/2024 [...] Lester M.D. 10/30/2024 8:15 AM Dictation Location: [place] [address] Electronically authenticated by: [id number] Y Date: 10/30/2024 08:15 Dictated By: Jolie Lester M.D. Signed By: 10/30/24 0817 DD/ 0815 TD/TT: Precipitator Operator: [facility] Radiology, Radiologi MD nai - 10/30/2024 [place] [address] CT Scan Report Signed Patient: JAMES BARROS MR#: [id number] : 1950 Acct:[id number] Age/Sex: 74 / M ADM Date: 10/29/24 Loc: LAB Attending Dr: WYATT STALLINGS Ordering Physician: WYATT STALLINGS Date of Service: 10/29/24 Procedure(s): CT angio chest Accession Number(s): [id number] cc: Kenny Horton M.D. [address] [address] Patient Name: JAMES BARROS MRN: [facility]:[id number] date: 1950 Sex: M Assigned Patient Location: LAB Current Patient Location: Accession/Order Number: [id number] Exam Date: 10/30/2024 08:03 Report Date: 10/30/2024 [...] Lester M.D. 10/30/2024 8:15 AM Dictation Location: [place] [address] Electronically authenticated by: [id number] Y Date: 10/30/2024 08:15 Dictated By: Jolie Lester M.D. Signed By: 10/30/24816 DD/ 4 TD/TT: Precipitator Operator: [facility] Radiology Study observation (narrative) [facility] CTA Chest vessels WO and W c ontrast IVOrdered By: Radiologist Radiology on 10-30-2024 [facility] Work Phone: [facility] CREATININEon 10-29-2024 Creatinine [Mass/Vol] 0.97 mg/dL 0.70 - 1.30 mg/dL [facility] GFR/1.73 sq M.predicted CKD-EPI (S/P/Bld) [Vol rate/Area] >60 >=60 mL/min/1.73m 2 [facility] EGFR-NON AF BULGARIAN >60 >=60 mL/min/1.73m 2 [facility] ALL CBC WITH AUTO DIFFon BASOPHILS ABSOLUTE AUTO 0.1 [facility] Basophils/100 WBC (Bld) 0.9 % 0.2 - 2.0 % [facility] Eosinophils/100 WBC (Bld) 3.2 % 0.9 - 7.0 % [facility] Erythrocyte distribution width (RBC) [Ratio] 12.3 % 11.0 - 15.0 % [facility] Hematocrit (Bld) [Volume fraction] 47.9 % 42.0 - 54.0 % [facility] Hemoglobin (Bld) [Mass/Vol] 16.9 g/dL 14.0 - 18.0 g/dL [facility] IMMATURE GRANULOCYTES ABS AUTO 0.[address] [facility] Immature granulocytes/100 WBC (Bld) 1 % High 0.0 - 0.5 % [facility] Interpretation and review of laboratory results Abnormal [facility] LYMPHOCYTES ABSOLUTE AUTO 2.3 [facility] Lymphocytes/100 WBC (Bld) 28.4 % 20.5 - 60.0 % [facility] MCH (RBC) [Entitic mass] 33.2 pg 25.9 - 34.[address] [facility] MCHC (RBC) [Mass/Vol] 35.3 g/dL High 29.9 - 35.2 g/dL [facility] MCV (RBC) [Entitic vol] 94.1 fL High 80.0 - 94.[address] [facility]TES [facility]/100 WBC (Bld) 9.1 % 1.7 - 12.0 % [facility] NEUTROPHILS ABSOLUTE AUTO 4.6 [facility] Neutrophils/100 WBC (Bld) 57.4 % 43.0 - 75.0 % [facility] Platelet mean volume (Bld) [Entitic vol] 10.7 fL 9.5 - 13.[address] [facility] TBH EO # 0.3 [facility] TB PLT [address] [facility] TB RBC 5.09 [facility] TBH WBC 8 [facility] Healthcare Office Visiton 06-04-2024 Follow-up visit [id number] James Barros 1950 M Date Provider Department Center 06/04/2024 [id number] PAZ [facility] Family History Problem Relation Age of Onset Heart attack Maternal Grandfather Family Status - Relation Status Age at Maternal Grandfather Level of Service:67652 [place] OFFICE/OUTPATIENT ESTABLISHED LOW MDM 20 MIN Normal [facility] MICROALBUMIN, RAND URon 12-11-2023 MICROALBUMIN URINE RANDOM 19.3 mg/dL NINF - 30.0 mg/dL [facility] ALL BASIC METABOLIC PANELon 12-06-2023 Anion gap [Moles/Vol] 13.0 mmol/L [facility] Calcium [Mass/Vol] 10.1 mg/dL 8.5 - 10. 1 mg/dL [facility] Chloride [Moles/Vol] 103 mmol/L 98 - 107 mmol/L [facility] CO2 [Moles/Vol] 26.1 mmol/L 21.0 - 32.0 mmol/L [facility] Creatinine [Mass/Vol] 0.95 mg/dL 0.70 - 1.30 mg/dL [facility] GFR/1.73 sq M.predicted CKD-EPI (S/P/Bld) [Vol rate/Area] >60 60 - PINF [facility] Glucose [Mass/Vol] 196 mg/dL High 74 - 106 mg/dL [facility] Interpretation and review of laboratory results Abnormal [facility] Potassium [Moles/Vol] 4.1 mmol/L 3.5 - 5.1 mmol/L [facility] Sodium [Moles/Vol] 138 mmol/L 136 - 145 mmol/L [facility] TBH EGFR-NON AF BULGARIAN >60 60 - PINF [facility] Urea nitrogen [Mass/Vol] 16.0 mg/dL 7.0 - 18.0 mg/dL [facility] Urea nitrogen/Creatinine [Mass ratio] 16.8 mg/mg [facility] GLYCOHEMOGLOBIN A1Con 2022 ADA RECOMMENDATION SEE BELOW Normal [facility] Comment on above: Result Comment: ADA RECOMMENDED LIMIT 4.0 - 6.0 ADA THERAPEUTIC TARGET < 7.0 ACTION SUGGESTED > 7.0 Performed By: #### A 1C ####[facility] [address] [place] [address]Dr. Vipul Jean Glucose [Mass/Vol] 197 mg/dL Normal [facility] Comment on above: Performed By: #### A 1C ####[facility] [address] [place] [address]DrNoelle Jean HbA1c (Bld) [Mass fraction] 8.5 % Critically high 4.5-6.2 [facility] Comment on above: Performed By: #### A 1C ####[facility] [address] [place] [address]Dr. Vipul Jaen AMYLASEon 05-01-2022 Amylase [Catalytic activity/Vol] 33 U/L Normal 25-115 [facility] Comment on above: Performed By: #### A MY, HSTROPN, LIPA, CMP #### [facility] [address] [place] [address] [address] Vipul Jean CBC AUTO DIFFon 05-01-2022 BASO # 0.1 103/ul Normal 0.0-0.1 [facility] Comment on above: Performed By: #### C BC #### [facility] [address] [place] [address] [address] Vipul Jean Basophils/100 WBC (Bld) 0.6 % Normal 0.2-2.0 [facility] Comment on above: Performed By: #### C BC #### [facility] [address] [place] [address] Dr. Vipul Jean EO # 0.1 103/ul Normal 0.0-0.7 [facility] Comment on above: Performed By: #### C BC #### [facility] [address] [place] [address] Dr. Vipul Jean Eosinophils/100 WBC (Bld) 1.4 % Normal 0.9-7.0 [facility] Comment on above: Performed By: #### C BC #### [facility] [address] [place] [address] Dr. Vipul Jean Erythrocyte distribution width (RBC) [Ratio] 12.2 % Normal 11.0-15.0 [facility] Comment on above: Performed By: #### C BC #### [facility] [address] [place] [address] Dr. Vipul Jean Hematocrit (Bld) [Volume fraction] 46.0 % Normal 42.0-54.0 [facility] Comment on above: Performed By: #### C BC #### [facility] [address] [place] [address] Dr. Vipul Jean Hemoglobin (Bld) [Mass/Vol] 16.7 g/dL Normal 14.0-18.0 [facility] Comment on above: Performed By: #### C BC #### [facility] [address] [place] [address] Dr. Vipul Jean IG # 0.04 10e3/ul Critically high 0.00-0.03 [facility] Comment on above: Performed By: #### C BC #### [facility] [address] [place] [address] Dr. Vipul Jean IG % 0.4 % Normal 0.0-0.5 [facility] Comment on above: Performed By: #### C BC #### [facility] [address] [place] [address] [address] Vipul Jean LYMPH # 1.7 103/ul Normal 1.2-3.8 [facility] Comment on above: Performed By: #### C BC #### [facility] [address] [place] [address] [address] Vipul Jean Lymphocytes/100 WBC (Bld) 18.7 % Critically low 20.5-60.0 [facility] Comment on above: Performed By: #### C BC #### [facility] [address] [place] [address] Dr. Vipul Jean MANUAL DIFF REQ NO Normal [facility] Comment on above: Performed By: #### C BC #### [facility] [address] [place] [address] Dr. Vipul Jean MCH (RBC) [Entitic mass] 33.3 pg Normal 25.9-34.0 [facility] Comment on above: Performed By: #### C BC #### [facility] [address] [place] [address] Dr. Vipul Jean MCHC (RBC) [Mass/Vol] 36.3 g/dL Critically high 29.9-35.2 [facility] Comment on above: Performed By: #### C BC #### [facility] [address] [place] [address] Dr. Vipul Jean MCV (RBC) [Entitic vol] 91.6 fL Normal 80.0-94.0 [facility] Comment on above: Performed By: #### C BC #### [facility] [address] [place] [address] Dr. Vipul Jean MONO # 0.6 103/ul Normal 0.3-0.8 [facility] Comment on above: Performed By: #### C BC #### [facility] [address] [place] [address] Dr. Vipul Jean Monocytes/100 WBC (Bld) 6.9 % Normal 1.7-12.0 [facility] Comment on above: Performed By: #### C BC #### [facility] [address] [place] [address] [address] Vipul Jean NEUT # 6.5 103/ul Normal 1.4-6.5 [facility] Comment on above: Performed By: #### C BC #### [facility] [address] [place] [address] Dr. Vipul Jean Neutrophils/100 WBC (Bld) 72.0 % Normal 43.0-75.0 [facility] Comment on above: Performed By: #### C BC #### [facility] [address] [place] [address] Dr. Vipul Jean Platelet mean volume (Bld) [Entitic vol] 10.5 fL Normal 9.5-13.5 [facility] Comment on above: Performed By: #### C BC #### [facility] [address] [place] [address] Dr. Vipul Jean PLT 125 103/ul Critically low 150-450 [facility] Comment on above: Performed By: #### C BC #### [facility] [address] [place] [address] Dr. Vipul Jean RBC 5.02 106/ul Normal 4.70-6.10 [facility] Comment on above: Performed By: #### C BC #### [facility] [address] [place] [address] Dr. Vipul Jean WBC 9.0 103/ul Normal 4.0-11.0 [facility] Comment on above: Performed By: #### C BC #### [facility] [address] [place] [address] ABD/PELVIS WO CONon [...] by: HOME MARX Date: 2022-05-01 15:31 Normal [facility] LIPASEon 05-01-2022 Lipase [Catalytic activity/Vol] 62.0 U/L Critically low 73.0-393.0 [facility] Comment on above: Performed By: #### A MY, HSTROPN, LIPA, CMP #### [facility] [address] [place] [address] [address] Vipul Jean PROF 14(COMP METB)on 023 Albumin [Mass/Vol] 3.4 g/dL Normal 3.4-5.0 [facility] Comment on above: Performed By: #### A MY, HSTROPN, LIPA, CMP #### [facility] [address] [place] [address] [address] Vipul Jean Albumin/Globulin [Mass ratio] 1.1 {ratio} Normal [facility] Comment on above: Performed By: #### A MY, HSTROPN, LIPA, CMP #### [facility] [address] [place] [address] [address] Vipul Jean ALP [Catalytic activity/Vol] 93 U/L Normal 46-116 [facility] Comment on above: Performed By: #### A MY, HSTROPN, LIPA, CMP #### [facility] [address] [place] [address] [address] Vipul Jean ALT [Catalytic activity/Vol] 38 U/L Normal 16-63 [facility] Comment on above: Performed By: #### A MY, HSTROPN, LIPA, CMP #### [facility] [address] [place] [address] [address] Vipul Jean Anion gap [Moles/Vol] 10.6 mmol/L Normal [facility] Comment on above: Performed By: #### A MY, HSTROPN, LIPA, CMP #### [facility] [address] [place] [address] [address] Vipul Jean AST [Catalytic activity/Vol] 29 U/L Normal 15-37 [facility] Comment on above: Performed By: #### A MY, HSTROPN, LIPA, CMP #### [facility] [address] [place] [address] Dr. Vipul Jean Bilirubin [Mass/Vol] 0.6 mg/dL Normal 0.2-1.0 [facility] Comment on above: Performed By: #### A MY, HSTROPN, LIPA, CMP #### [facility] [address] [place] [address] Dr. Vipul Jean Calcium [Mass/Vol] 10.0 mg/dL Normal 8.5-10.1 [facility] Comment on above: Performed By: #### A MY, HSTROPN, LIPA, CMP #### [facility] [address] [address] [address] Vipul Jean Chloride [Moles/Vol] 105 mmol/L Normal 98-107 [facility] Comment on above: Performed By: #### A MY, HSTROPN, LIPA, CMP #### [facility] [address] [place] [address] Dr. Vipul Jean CO2 [Moles/Vol] 24.6 mmol/L Normal 21.0-32.0 [facility] Comment on above: Performed By: #### A MY, HSTROPN, LIPA, CMP #### [facility] [address] [place] [address] Dr. Vipul Jean Creatinine [Mass/Vol] 1.08 mg/dL Normal 0.70-1.30 [facility] Comment on above: Performed By: #### A MY, HSTROPN, LIPA, CMP #### [facility] [address] [place] [address] Dr. Vipul Jean EGFR-AF BULGARIAN >60 Normal >=60 [facility] Comment on above: Performed By: #### A NICHOL HSTROPN, LIPA, CMP #### [facility] [address] [address] [address] Vipul Jean EGFR-NON AF BULGARIAN >60 Normal >=60 [facility] Comment on above: Performed By: #### A NICHOL, HSTROPN, LIPA, CMP #### [facility] [address] [address] [address] Vipul Jean Globulin (S) [Mass/Vol] 3.2 g/dL Normal [facility] Comment on above: Performed By: #### A NICHOL HSTROPN, LIPA, CMP #### [facility] [address] [place] [address] Dr. Vipul Jean Glucose [Mass/Vol] 215 mg/dL Critically high 74-106 [facility] Comment on above: Performed By: #### A NICHOL HSTROPN, LIPA, CMP #### [facility] [address] [address] [address] Vipul Jean Potassium [Moles/Vol] 4.2 mmol/L Normal 3.5-5.1 [facility] Comment on above: Performed By: #### A NICHOL, HSTROPN, LIPA, CMP #### [facility] [address] [address] [address] Vipul Jean Protein [Mass/Vol] 6.6 g/dL Normal 6.4-8.2 [facility] Comment on above: Performed By: #### A NICHOL, HSTROPN, LIPA, CMP #### [facility] [address] [address] [address] Vipul Jean Sodium [Moles/Vol] 136 mmol/L Normal 136-145 [facility] Comment on above: Performed By: #### A NICHOL, HSTROPN, LIPA, CMP #### [facility] [address] [address] [address] Vipul Jean Urea nitrogen [Mass/Vol] 16.0 mg/dL Normal 7.0-18.0 [facility] Comment on above: Performed By: #### A MY, HSTROPN, LIPA, CMP #### [facility] [address] [place] [address] Dr. Vipul Jean Urea nitrogen/Creatinine [Mass ratio] 14.8 mg/mg Normal [facility] Comment on above: Performed By: #### A MY, HSTROPN, LIPA, CMP #### [facility] [address] [place] [address] Dr. Vipul Jean TROPONIN, HIGH SENSITIVITYon 05-01-2022 HSTROP 21.4 pg/mL Normal 4.0-76.1 [facility] Comment on above: Result Comment: CUT- OFF POINTS HAVE BEEN ESTABLISHED BASED ON THE FOURTH UNIVERSAL DEFINITIONS OF MYOCARDIAL INFARCTION. THE UPPER REFERENCE LIMIT (URL) OF TROPONIN, DEFINED THE 99TH PERCENTILE OF cTnI DISTRIBUTION IN A REFERENCE POPULATION, HAS BEEN CONFIRMED THE DECISION THRESHOLD FOR [place] DIAGNOSIS. Performed By: #### A MY, HSTROPN, LIPA, CMP #### [facility] [address] [place] [address] Dr. Vipul Jean CBC AUTO DIFFon 02-14-2022 BASO # 0.1 103/ul Normal 0.0-0.1 [facility] Comment on above: Performed By: #### C BC #### [facility] [address] [place] [address] Dr. Vipul Jean Basophils/100 WBC (Bld) 0.6 % Normal 0.2-2.0 [facility] Comment on above: Performed By: #### C BC #### [facility] [address] [place] [address] Dr. Vipul Jean EO # 0.1 103/ul Normal 0.0-0.7 [facility] Comment on above: Performed By: #### C BC #### [facility] [address] [place] [address] Dr. Vipul Jean Eosinophils/100 WBC (Bld) 1.6 % Normal 0.9-7.0 [facility] Comment on above: Performed By: #### C BC #### [facility] [address] [place] [address] Dr. Vipul Jean Erythrocyte distribution width (RBC) [Ratio] 12.1 % Normal 11.0-15.0 [facility] Comment on above: Performed By: #### C BC #### [facility] [address] [place] [address] Dr. Vipul Jean Hematocrit (Bld) [Volume fraction] 47.9 % Normal 42.0-54.0 [facility] Comment on above: Performed By: #### C BC #### [facility] [address] [place] [address] Dr. Vipul Jean Hemoglobin (Bld) [Mass/Vol] 17.1 g/dL Normal 14.0-18.0 [facility] Comment on above: Performed By: #### C BC #### [facility] [address] [place] [address] Dr. Vipul Jean IG # 0.03 10e3/ul Normal 0.00-0.03 [facility] Comment on above: Performed By: #### C BC #### [facility] [address] [place] [address] Dr. Vipul Jean IG % 0.4 % Normal 0.0-0.5 [facility] Comment on above: Performed By: #### C BC #### [facility] [address] [place] [address] Dr. Vipul Jean LYMPH # 1.8 103/ul Normal 1.2-3.8 [facility] Comment on above: Performed By: #### C BC #### [facility] [address] [place] [address] Dr. Vipul Jean Lymphocytes/100 WBC (Bld) 22.4 % Normal 20.5-60.0 [facility] Comment on above: Performed By: #### C BC #### [facility] [address] [place] [address] Dr. Vipul Jean MANUAL DIFF REQ NO Normal [facility] Comment on above: Performed By: #### C BC #### [facility] [address] [place] [address] Dr. Vipul Jean MCH (RBC) [Entitic mass] 33.0 pg Normal 25.9-34.0 [facility] Comment on above: Performed By: #### C BC #### [facility] [address] [place] [address] Dr. Vipul Jean MCHC (RBC) [Mass/Vol] 35.7 g/dL Critically high 29.9-35.2 [facility] Comment on above: Performed By: #### C BC #### [facility] [address] [place] [address] Dr. Vipul Jean MCV (RBC) [Entitic vol] 92.5 fL Normal 80.0-94.0 [facility] Comment on above: Performed By: #### C BC #### [facility] [address] [place] [address] Dr. Vipul Jean MONO # 0.6 103/ul Normal 0.3-0.8 [facility] Comment on above: Performed By: #### C BC #### [facility] [address] [place] [address] Dr. Vipul Jean Monocytes/100 WBC (Bld) 7.0 % Normal 1.7-12.0 [facility] Comment on above: Performed By: #### C BC #### [facility] [address] [place] [address] Dr. Vipul Jean NEUT # 5.5 103/ul Normal 1.4-6.5 [facility] Comment on above: Performed By: #### C BC #### [facility] [address] [place] [address] Dr. Vipul Jean Neutrophils/100 WBC (Bld) 68.0 % Normal 43.0-75.0 [facility] Comment on above: Performed By: #### C BC #### [facility] [address] [place] [address] Dr. Vipul Jean Platelet mean volume (Bld) [Entitic vol] 11.0 fL Normal 9.5-13.5 [facility] Comment on above: Performed By: #### C BC #### [facility] [address] [place], [place] [id number] Dr. Vipul Jean PLT 101 103/ul Critically low 150-450 [facility] Comment on above: Performed By: #### C BC #### [facility] [address] [place] [address] Dr. Vipul Jean RBC 5.18 106/ul Normal 4.70-6.10 [facility] Comment on above: Performed By: #### C BC #### [facility] [address] [place] [address] Dr. Vipul Jean WBC 8.1 103/ul Normal 4.0-11.0 [facility] Comment on above: Performed By: #### C BC #### [facility] [address] [place] [address] Dr. Vipul Jean CRPon 02-14-2022 CRP [Mass/Vol] mg/L Normal <=1.0 [facility] Comment on above: Performed By: #### C RP, URIC #### [facility] [address] [place] [address] Dr. Vipul Jean URIC ACID SERUMon 02-14-2022 Urate [Mass/Vol] 4.4 mg/dL Normal 3.5-7.2 [facility] Comment on above: Performed By: #### C RP, URIC #### [facility] [address] [place] [address] Dr. Vipul Jean XR ANKLE LT MIN [...] by: NORY ALICIA Date: 2022-02-14 15:05 Normal [facility] CNOVSPon 06-15-2017 CNOVSP Visit (SP) Office ([facility]) Ko BARROS ([id number]) 1950 MDate Time Provider Department06/15/17 3:45 PM CAREY TREVIÑO During your visit today, we recorded the following information about you: Temperature Pulse Respiration Blood pressure 97 degrees 53/minute 18/minute 149/69 Weight Height 92.8 kg 1.676 Baldemar Treviño MD 06/15/2017 3:50 PM SignedHPWaldo Barros is a 67 year old male [...] kg (204 lb 9.6 oz) BMI 33.02 kg/d0Qkvgrye Appearance: alert and oriented, appearing in no [...] Q53.10See Cruz Treviño MDReferring Provider: AUDREY OSHEA [[id number]]Allergies As of Date: 06/15/2017(No Known Allergies)Date Reviewed: 06/15/2017Reviewed by: Liliane Molina - Fully AssessedReason for Visit: low platelets [Other] Cmt: new patient consultationPrimary Visit Diagnosis:Thrombocytopeni a (HCC) [D69.6] Other Visit Diagnoses: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 left testicle [Q53.10]Order(s):ABS GRAN CT + CBC (FOR REMOTE [facility] USE) [SQRAGCBC] Order #: [id number] FUTUREFollow-up and Disposition History RecordedPrescriptions as of [...] by CAREY TREVIÑO MD on 06/15/17 Normal [facility] PROGRESSon 06-15-2017 PROGRESS HNO ID: [id number] thor: [place]: (none)Author Type: PhysicianType: Progress [...] kg (204 lb 9.6 oz) BMI 33.02 kg/k3Tpphldl Appearance: alert and oriented, appearing in no [...] 752.51, ICD10: Q53.10See Cruz Treviño MD Normal [facility] Remote Abs Gran + CBC (for F use only)on 06-15-2017 Absol Gran Count 5.25 k/uL Normal 1.45-7.50 [facility] Erythrocyte distribution width Auto Ratio (RBC) 12.4 % Normal 11.5-15.0 [facility] Erythrocytes (RBC) 4.87 10*6/uL Normal 4.20-6.00 [facility] Hematocrit (HCT) 45.5 % Normal 39.0-51.0 [facility] Hemoglobin mass conc (Bld) 15.7 g/dL Normal 13.0-17.0 [facility] MCH 32.2 pG Normal 26.0-34.0 [facility] MCHC mass conc (RBC) 34.5 g/dL Normal 30.5-36.0 [facility] MCV 93.4 fL Normal 80.0-100.0 [facility] Platelet mean volume (PMV) 10.8 fL Normal 9.0-12.7 [facility] Platelets 116 10*3/uL Low 150-400 [facility] WBC (Leukocytes) 7.93 10*3/uL Normal 3.70-11.00 [facility] Vital Signs Date Time Vital Sign Value Performing Clinician Dexter alejandro 12-05-2024 14:08-0400 Body height 170.2 cm Kenny Horton MD Work Phone: [facility] 12-05-2024 14:08-0400 Body mass index (BMI) [Ratio] 29.13 kg/m2 Kenny Horton MD Work Phone: [facility] 12-05-2024 14:08-0400 Body temperature 97.81 [degF] Kenny Horton MD Work Phone: [facility] 12-05-2024 14:08-0400 Body weight 84.37 kg Kenny Horton MD Work Phone: [facility] 12-05-2024 14:08-0400 Diastolic blood pressure 64 mm[Hg] Kenny Horton MD Work Phone: [facility] 12-05-2024 14:08-0400 Heart rate 51 /min Kenny Horton MD Work Phone: [facility] 12-05-2024 14:08-0400 Respiratory rate 16 /min Kenny Horton MD Work Phone: [facility] 12-05-2024 14:08-0400 SaO2% (BldA) [Mass fraction] 98 % Kenny Horton MD Work Phone: [facility] 12-05-2024 14:08-0400 Systolic blood pressure 122 mm[Hg] Kenny Horton MD Work Phone: [facility] 10-28-2024 15:04-0400 Body height 170.2 cm Sigifredo Brunner DPM Work Phone: [facility] 10-28-2024 15:04-0400 Body mass index (BMI) [Ratio] 28.04 kg/m2 Sigifredo Brunner DPM Work Phone: [facility] 10-28-2024 15:04-0400 Body weight 81.19 kg Sigifredo HUAM Work Phone: [facility] 06-06-2024 13:33-0500 Body height 170.2 cm Kenny Horton MD Work Phone: [facility] 06-06-2024 13:33-0500 Body mass index (BMI) [Ratio] 28.04 kg/m2 Kenny Horton MD Work Phone: [facility] 06-06-2024 13:33-0500 Body temperature 98.2 [degF] Kenny Horton MD Work Phone: [facility] 06-06-2024 13:33-0500 Body weight 81.19 kg Kenny Horton MD Work Phone: [facility] 06-06-2024 13:33-0500 Diastolic blood pressure 62 mm[Hg] Kenny Horton MD Work Phone: [facility] 06-06-2024 13:33-0500 Heart rate 67 /min Kenny Horton MD Work Phone: [facility] 06-06-2024 13:33-0500 Respiratory rate 20 /min Kenny Horton MD Work Phone: [facility] 06-06-2024 13:33-0500 SaO2% (BldA) [Mass fraction] 97 % Kenny Horton MD Work Phone: [facility] 06-06-2024 13:33-0500 Systolic blood pressure 154 mm[Hg] Kenny Horton MD Work Phone: [facility] 05-22-2024 15:24-0500 Body height 170.2 cm Sigifredo Brunner DPM Work Phone: [facility] 05-22-2024 15:24-0500 Body mass index (BMI) [Ratio] 28.19 kg/m2 Sigifredo Brunner DPM Work Phone: [facility] 05-22-2024 15:24-0500 Body weight 81.65 kg Sigifrdeo Brunner DPM Work Phone: [facility] 03-05-2024 14:09-0500 Body height 170.2 cm Kenny Horton MD Work Phone: [facility] 03-05-2024 14:09-0500 Body mass index (BMI) [Ratio] 28.19 kg/m2 Kenny Horton MD Work Phone: [facility] 03-05-2024 14:09-0500 Body temperature 97.81 [degF] Kenny Horton MD Work Phone: [facility] 03-05-2024 14:09-0500 Body weight 81.65 kg Kenny Horton MD Work Phone: [facility] 03-05-2024 14:09-0500 Diastolic blood pressure 58 mm[Hg] Kenny Horton MD Work Phone: [facility] 03-05-2024 14:09-0500 Heart rate 60 /min Kenny Hroton MD Work Phone: [facility] 03-05-2024 14:09-0500 Respiratory rate 18 /min Kenny Horton MD Work Phone: [facility] 03-05-2024 14:09-0500 SaO2% (BldA) [Mass fraction] 98 % Kenny Horton MD Work Phone: [facility] 03-05-2024 14:09-0500 Systolic blood pressure 122 mm[Hg] Kenny Horton MD Work Phone: [facility] 02-20-2024 15:16-0500 Body height 170.2 cm Sigifredo Brunner DPM Work Phone: [facility] 02-20-2024 15:16-0500 Body mass index (BMI) [Ratio] 25.06 kg/m2 Sigifredo Brunner DPM Work Phone: [facility] 02-20-2024 15:16-0500 Body weight 72.58 kg Sigifredo Brunner DPM Work Phone: [facility] Healthcare Encounters Encounter Date Encounter Type Care Provider Facility Start: 12-24-2024 End: 12-24-2024 Emergency department patient visit KENNY HORTON [facility] Start: 12-05-2024 End: 12-05-2024 Bamboo flowsheet Kenny Horton MD Work Phone: [facility] Start: 12-05-2024 End: 12-05-2024 Bamboo flowsheet Kenny Horton MD Work Phone: [facility] Start: 12-05-2024 End: 12-05-2024 Office outpatient visit 25 minutes Kenny Horton MD Work Phone: [facility] Comment on above: Type 2 diabetes ruma itus with hyperglycemia, without long-term current use of insulin (HCC) (Primary Dx); Benign hypertension ; Major depressive disorder, recurrent episode, mild ; 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 (HCC); Chronic obstructive pulmonary disease, unspecified COPD type (HCC); Type 2 diabetes mellitus with polyneuropathy (HCC) Start: 12-05-2024 End: 12-05-2024 ambulatory KENNY HORTON Not Available Start: 12-02-2024 End: 12-02-2024 Clinisync Result Encounter Generic External Data Provider [facility] External Department Unsolicited Start: 12-02-2024 End: 12-02-2024 Clinisync Result Encounter Generic External Data Provider [facility] External Department Unsolicited Start: 11-29-2024 End: 11-29-2024 Clinisync Result Encounter Generic External Data Provider [facility] External Department Unsolicited Start: 11-29-2024 End: 11-29-2024 Clinisync Result Encounter Generic External Data Provider [facility] External Department Unsolicited Start: 11-04-2024 End: 11-04-[address] [facility] Start: 10-30-2024 End: 10-30-2024 Clinisync Result Encounter [...] encounter procedure Sigifredo Brunner DPM Work Phone: [facility] Comment on above: Dermatophytosis of n ail (Primary Dx); Dystrophic nail; Pain around toenail, right foot; Pain around toenail, left foot Start: 10-28-2024 End: 10-28-2024 ambulatory SIGIFREDO BRUNNER Not Available Start: 10-28-2024 End: 10-28-2024 Bamboo flowsheet Sigifredo Brunner DPM Work Phone: [facility] Start: 10-28-2024 End: 10-28-2024 Bamboo flowsheet Sigifredo Brunner DPM Work Phone: [facility] Start: 06-06-2024 End: 06-06-2024 Bamboo flowsheet Kenny Horton MD Work Phone: [facility] Start: 06-06-2024 End: 06-06-2024 Bamboo flowsheet Kenny Horton MD Work Phone: [facility] Start: 06-06-2024 End: 06-06-2024 Office outpatient visit 25 minutes Kenny Horton MD Work Phone: [facility] Comment on above: Type 2 [...] Result Encounter Kenny Horton MD Work Phone: [facility] External Department Unsolicited Start: 06-05-2024 End: 06-05-2024 Clinisync Result Encounter Kenny Horton MD Work Phone: [facility] External Department Unsolicited Start: 06-04-2024 End: 06-04-2024 Orders Only Kenny Horton MD Work Phone: [facility] Comment on above: Screening PSA (prost ate specific antigen) (Primary Dx); Type 2 diabetes mellitus with hyperglycemia, without long-term current use of insulin (CMS/HCC); Dyslipidemia (CMS/HCC); Encounter for long-term (current) use of medications Start: 05-22-2024 End: 05-22-2024 ambulatory SIGIFREDO BRUNNER Not Available Start: 05-22-2024 End: 05-22-2024 Patient encounter procedure Sigifredo Brunner DPM Work Phone: [facility] Comment on above: Dermatophytosis of n ail (Primary Dx); Dystrophic nail; Pain around toenail, right foot; Pain around toenail, left foot Start: 05-22-2024 End: 05-22-2024 Bamboo flowsheet Sigifredo Brunner DPM Work Phone: [facility] Start: 05-22-2024 End: 05-22-2024 Bamboo flowsheet Sigifredo Brunner DPM Work Phone: [facility] Start: 03-05-2024 End: 03-05-2024 Office outpatient visit 25 minutes Kenny Horton MD Work Phone: [facility] Comment on above: Type 2 diabetes ruma itus with hyperglycemia, without long-term current use of insulin (CMS/HCC) (Primary Dx); Benign hypertension (CMS/HCC); Major depressive disorder, recurrent episode, mild (HCC) (CMS/HCC); Type 2 diabetes mellitus with polyneuropathy (CMS/HCC); 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 (CMS/HCC) Start: 03-05-2024 End: 03-05-2024 Bamboo flowsheet Kenny Horton MD Work Phone: [facility] Start: 03-05-2024 End: 03-05-2024 Bamboo flowsheet Kenny Horton MD Work Phone: [facility] Start: 03-05-2024 End: 03-05-2024 ambulatory KENNY HORTON Not Available Start: 02-20-2024 End: 02-20-2024 Patient encounter procedure Sigifredo Brunner DPM Work Phone: [facility] Comment on above: Dermatophytosis of n ail (Primary Dx); Dystrophic nail; Pain around toenail, right foot; Pain around toenail, left foot Start: 02-20-2024 End: 02-20-2024 ambulatory SIGIFREDO BRUNNER Not Available Start: 02-20-2024 End: 02-20-2024 Bamboo flowsheet Sigifredo Brunner DPM Work Phone: [facility] Start: 02-20-2024 End: 02-20-2024 Bamboo flowsheet Sigifredo Brunner DPM Work Phone: [facility] Start: 01-17-2024 End: 01-17-2024 Telephone [...] [facility] Comment on above: Hyponatremia Start: 05-23-2023 End: 05-28-2023 Emergency department patient visit KENNY HORTON [facility] Start: 07-27-2022 End: 07-28-[address] KENNY HORTON Facility:[facility] Start: 05-01-2022 End: 05-01-[address] KNENY HORTON Facility:[facility] Start: 02-14-2022 End: 02-14-[address] KENNY HORTON Facility:[facility] Start: 06-15-2017 End: 06-16-2017 Ambulatory CAREY TREVIÑO [facility] Procedures Date Procedure Procedure Detail Performing Clinician Start: 12-02-2024 NM IRENE PERF SPECT RE ST STR Generic External Data Provider Start: 11-29-2024 CA ECHO DOPPLER COMPLETE Generic External Data Provider Start: 10-30-2024 Ct angiography chest w/contrast/noncontrast Generic External Data Provider Start: 10-29-2024 [facility] CREATININE Generic External Data Provider Start: 06-05-2024 [...] Treatment Date Care Activity Detail Author Start: 03-11-2025 End: 03-11-2025 Patient encounter procedure 03/11/2025 1:30 PM EST Office Visit [facility] [address] [place] [address] Kenny Horton MD [address] [place] [phone] [facility] Start: 02-20-2025 Glaucoma screening Diabetes: R etinopathy Screening [facility] Healthcare Start: 02-17-2025 End: 02-17-2025 Patient encounter procedure [facility] Start: 12-16-2024 Influenza vaccination Influenza Vacc ine (#1) [facility] Start: 12-10-2024 Urine screening for protein Diabetes: Urine Protein Screening [facility] Start: 12-05-2024 End: 12-05-2025 Hemoglobin A1c/Hemoglobin.total in Blood Hemoglobin A1c Lab Routine Type 2 diabetes mellitus with hyperglycemia, without long-term current use of insulin ([facility]) Expected: 12/05/2024 (Approximate), Expires: 12/05/2025 [facility] Comment on above: Expected: 12/05/2024 (Approximate), Expires: 12/05/2025 Start: 12-05-2024 End: 12-05-2025 Microalbumin/Creatinine panel in random Urine Microalbumin / creatinine, urine ratio Lab Routine Type 2 diabetes mellitus with hyperglycemia, without long-term current use of insulin ([facility]) Expected: 12/05/2024 (Approximate), Expires: 12/05/2025 [facility] Work Phone: Comment on above: Expected: 12/05/2024 (Approximate), Expires: 12/05/2025 Start: 12-05-2024 End: 12-05-2024 Patient encounter procedure [facility] Comment on above: Arrived Start: 12-03-2024 Hemoglobin A1c measurement Diabetes: Hemoglobin A1C [facility] Start: 10-28-2024 End: 10-28-2024 Patient encounter procedure 10/28/2024 3:15 PM EDT Procedure Visit [facility] [address] [place] [phone] Sigifredo Brunner DPM [address] [place] [address] Arrived [facility] Comment on above: Arrived Start: 08-19-2024 End: 08-19-2024 Patient encounter procedure 08/19/2024 3:15 PM EDT Procedure Visit [facility] [address] [place] [address] Sigifredo Brunner DPM [address] [place] [address] [facility] Start: 06-07-2024 Hemoglobin A1c measurement Diabetes: Hemoglobin A1C [facility] Start: 06-06-2024 End: 06-06-2024 Patient encounter procedure [facility] Comment on above: Arrived Start: 06-04-2024 End: 06-04-2025 Basic metabolic 1998 panel - Serum or Plasma Basic metabolic panel Lab Routine Encounter for long-term (current) use of medications Expected: 06/04/2024 (Approximate), Expires: 06/04/2025 [facility] Comment on above: Expected: 06/04/2024 (Approximate), Expires: 06/04/2025 Start: 06-04-2024 End: 06-04-2025 CBC W Auto Differential panel - Blood CBC and differential Lab Routine Encounter for long-term (current) use of medications Expected: 06/04/2024 (Approximate), Expires: 06/04/2025 [facility] Comment on above: Expected: 06/04/2024 (Approximate), Expires: 06/04/2025 Start: 06-04-2024 End: 06-04-2025 Hemoglobin A1c/Hemoglobin.total in Blood Hemoglobin A1c Lab Routine Type 2 diabetes mellitus with hyperglycemia, without long-term current use of insulin ([facility]) Expected: 06/04/2024 (Approximate), Expires: 06/04/2025 [facility] Work Phone: Comment on above: Expected: 06/04/2024 (Approximate), Expires: 06/04/2025 Start: 06-04-2024 End: 06-04-2025 Hepatic function 2000 panel - Serum or Plasma Hepatic function panel Lab Routine Encounter for long-term (current) use of medications Expected: 06/04/2024 (Approximate), Expires: 06/04/2025 [facility] Comment on above: Expected: 06/04/2024 (Approximate), Expires: 06/04/2025 Start: 06-04-2024 End: 06-04-2025 Lipid 1996 panel - Serum or Plasma Lipid panel Lab Routine Dyslipidemia ([facility]/HCC) Expected: 06/04/2024 (Approximate), Expires: 06/04/2025 [facility] Comment on above: Expected: 06/04/2024 (Approximate), Expires: 06/04/2025 Start: 06-04-2024 End: 06-04-2025 Prostate specific Ag [Mass/volume] in Serum or Plasma PSA Lab Routine Screening PSA (prostate specific antigen) Expected: 06/04/2024 (Approximate), Expires: 06/04/2025 [facility] Comment on above: Expected: 06/04/2024 (Approximate), Expires: 06/04/2025 Start: 05-22-2024 End: 05-22-2024 Patient encounter procedure 05/22/2024 3:15 PM EST Procedure Visit [facility] [address] [place] [id number] Sigifredo Brunner DPM [address] [place], [place] [id number] [facility] Start: 03-05-2024 End: 03-05-2024 Patient encounter procedure [facility] Comment on above: Arrived Start: 02-20-2024 End: 02-20-2024 Patient encounter procedure [facility] Comment on above: Arrived Start: 12-17-2023 Influenza vaccination Influenza Vacc ine (#1) [facility] Start: 05-01-2023 Urine screening for protein Diabetes: Urine Protein Screening [facility] Start: 1967 Pneumococcal Vaccine : 65+ Years (1 of 2 - PCV) Pneumococcal Vaccine: 65+ Years (1 of 2 - PCV) [facility] Start: 1954 Pneumococcal Vaccine : 65+ Years (1 of 2 - PCV) Pneumococcal Vaccine: 65+ Years (1 of 2 - PCV) [facility] Start: 1948 Hemoglobin A1c measurement Diabetes: Hemoglobin A1C [facility] Start: 1948 Screening for malign ant neoplasm of colon [facility] Pulmonary function report Pulmonary Function Test Imaging Routine Chronic obstructive pulmonary disease, unspecified COPD type ([facility]/HCC) Ordered: 06/06/2024 [facility] Work Phone: Comment on above: Ordered: 06/06/2024 Payers Date Payer Category Payer Medicare [employer] MEDIC[employer] ADVANTAGE [employer] MEDICARE [id number] 2022-Present [address] [place] [id number] 2022 Medicare (Managed Care) [employer] M EDICARE ADVANTAGE [id number] 1959 Medicare [id number] 1948 Unknown [id number]. [id number] 1948 Unknown [id number]. 2.593 1948 Unknown [id number]. 2.593 1948 Unknown [id number] [id number]. 2.1286 1948 Unknown [id number]. 2.1259 1948 Unknown [id number] [id number]. 2.1259 1948 Unknown [id number] [id number]. 2.1259 1948 Unknown [id number] [id number]. 2.1259 1948 Unknown [id number] [id number]. 2.1259 1948 Unknown [id number] [id number]. 2.1259 1948 Unknown [id number]. 2.1286 Social History Date Type Detail Facility Start: 11-20-2023 [facility] History of tobacco use Cigarette Smoker [facility] Start: 11-20-2023 Tobacco use and exposure Smoke less tobacco non-user [facility] Start: 12-04-2023 End: 12-05-2024 Alcoholic beverage intake Lifetime non-drinker (finding) [facility] Start: 12-04-2023 End: 12-05-2024 [facility] of [facility] Start: 12-04-2023 End: 12-05-2024 Tobacco use panel [facility] Start: 03-02-2023 Tobacco Comment Start smoking at age 7 [facility] Start: 11-24-2022 Alcohol Comment Caffeine intak e: 3-4 cups per day [facility] Start: 1950 Sex assigned at Not on file [facility] Clinical Notes 01-17-2024 to 12-05-2024 Kenny Horton MD - 12/05/2024 2:45 PM EDMeghana Horton MD - 12/05/2024 2:45 PM Keli Horton MD - 12/05/2024 2:45 PM EDMeghana Horton MD - 12/05/2024 2:45 PM EDTPatient Instructions Note Date & Type Note Facility 12-05-2024 History of Present illness Narrative Associated Problem(s): Type 2 diabetes mellitus with polyneuropathy (HCC) Occasional symptoms but mild and monitor. Associated Problem(s): Type 2 diabetes mellitus with hyperglycemia, without long-term current use of insulin (HCC) Reports BS stable and due for A1C. Stick to ADA diet and limit carbs. Associated Problem(s): 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 (HCC) Symptoms worse and try aricept. Associated Problem(s): Major depressive disorder, recurrent episode, mild Doing well without medication and monitor. Associated Problem(s): COPD (chronic obstructive pulmonary disease) (HCC) SOB unchanged. Stressed need to stop smoking. Associated Problem(s): Benign hypertension BP controlled and monitor PRN. Images from the original note were not included. Subjective Patient ID: James Barros is a 74 y.o. male who presents for Follow-up (6m ) and Memory Loss. Follow up DM, HTN, depression, neuropathy, COPD, and dementia. BS stable around 160-170. Taking medication daily. Tries to eat well and stick to ADA diet. Denies signs of elevated BS such as polyuria, polyphagia or polydipsia. Checking BP PRN and reports typically controlled. BP normal today. Taking medication daily and tolerating without side effects. Depression stable without medication. Occasional symptoms and at times down and sad but mild. Dementia getting worse. Increased forgetfulness and confusion. At times forgets people and seems confused. Not able to remember names or places. Forgets conversations. Aware he's getting forgetful and causing depression. No hallucinations. Neuropathy stable. Mild pain and burning in feet and worse after walking and in evening. Overall symptoms tolerable. Previously diagnosed with COPD. Continues to smoke. C/o mild SOB with exertion. Memory Loss Review of Systems Constitutional: Negative for fatigue. [...] without long-term current use of insulin (HCC) - Primary Reports BS stable and due for A1C. Stick to ADA diet and limit carbs. Relevant Orders Microalbumin / creatinine, urine ratio Hemoglobin A1c Benign hypertension BP controlled and monitor PRN. Major depressive disorder, recurrent episode, mild Doing well without medication and monitor. 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 (HCC) Symptoms worse and try aricept. Relevant Medications donepezil (Aricept) 5 MG tablet Type 2 diabetes mellitus with polyneuropathy (HCC) Occasional symptoms but mild and monitor. COPD (chronic obstructive pulmonary disease) (HCC) SOB unchanged. Stressed need to stop smoking. documented in this encounter [facility] 11-04-2024 Note [place] [facility] - [facility] Subjective James Braros is a 74 y.o. year old male [...] left testicle Benign hypertension Coronary atherosclerosis of navajo coronary artery DDD (degenerative disc disease), lumbar [...] Type 2 diabetes mellitus with polyneuropathy (CMS/HCC) COPD (chronic obstructive pulmonary disease) (CMS/HCC) Family History Problem Relation Name Age of Onset Heart attack Maternal Grandfather Social History Tobacco Use Smoking status: Every Day Current packs/day: 1.00 Types: Cigarettes Smokeless tobacco: Never Substance Use Topics Alcohol use: Not Currently Drug use: Never ISIDRO James is seen in follow-up. This is the first time I am meeting him. He used to see Dr. Kathy Paz from our group. Last visit was [...] (Toprol-XL) 25 mg (more content not included)... [facility] 10-28-2024 History of Present illness Narrative Images [...] mouth Daily, Disp: , Rfl: Glucose Blood (PaeDae BLOOD GLUCOSE TEST ), , Disp: , [...] Sigifredo Brunner DPM documented in this encounter [facility] 10-28-2024 Instructions Sigifredo Brunner DPM - 10/28/2024 3:15 PM EDT As noted documented in this encounter [facility] 06-06-2024 History of Present illness Narrative [...] Pulmonary Function Test documented in this encounter 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 Patient presents today for [...] -Ectasia of aorta Plan: -Continue Aspirin, beta zander for CAD. Continue resuvastatin 40 mg daily [...] as needed Kathy Paz MD Interventional Cardiology [facility] 06-04-2024 History of Present illness Narrative Order in chart, please fax. documented in this encounter [facility] 05-22-2024 History of Present illness Narrative [...] the morning., Disp: , Rfl: Glucose Blood (PaeDae BLOOD GLUCOSE TEST ), , Disp: , [...] Sigifredo Brunner DPM documented in this encounter [facility] 03-05-2024 History of Present illness Narrative [...] mild and monitor. documented in this encounter [facility] 02-20-2024 History of Present illness Narrative [...] Sigifredo Brunner DPM documented in this encounter [facility] 02-20-2024 Instructions Sigifredo Brunner DPM - 02/20/2024 3:15 PM EST As noted documented in this encounter [facility] 01-17-2024 Telephone encounter Note Error [facility] 01-17-2024 Miscellaneous Notes Error documented in this encounter [facility] Evaluation note Diagnosis Type 2 diabetes mellitus with hyperglycemia, without long-term current use of insulin ([facility])- Primary Benign hypertension (CMS/HCC) Essential hypertension, benign Major depressive disorder, recurrent episode, moderate (CMS/HCC) Major depressive disorder, recurrent episode, moderate Senile dementia with behavioral disturbance (CMS/HCC) Other fatigue Atherosclerosis of navajo coronary artery of navajo heart without angina pectoris (CMS/HCC) History of [...] (CMS/HCC) Type 2 diabetes mellitus with polyneuropathy ([facility]) Type II or unspecified type diabetes mellitus with neurological manifestations, not stated as uncontrolled Encounter for long-term (current) use of medications Encounter for long-term (current) use of other medications Colon cancer screening Special screening for malignant neoplasms, colon Dermatophytosis of nail- Primary Dystrophic nail Other specified disease of nail Pain around toenail, right foot Pain around toenail, left foot documented in this encounter [facility]* Diagnosis Type 2 diabetes mellitus with hyperglycemia, without long-term current use of insulin (CMS/HCC)- Primary Benign hypertension (CMS/HCC) Essential hypertension, benign Major depressive disorder, recurrent episode, moderate (CMS/HCC) Major depressive disorder, recurrent episode, moderate Senile dementia with behavioral disturbance (CMS/HCC) Other fatigue Atherosclerosis of navajo coronary artery of navajo heart without angina pectoris (CMS/HCC) History of [...] behavioral disturbance (CMS/HCC) Other fatigue Atherosclerosis of navajo coronary artery of navajo heart without angina pectoris (CMS/HCC) History of [...] toenail, left foot documented in this encounter [facility]* Diagnosis Type 2 diabetes mellitus with hyperglycemia, without long-term current use of insulin (CMS/HCC)- Primary Benign hypertension (CMS/HCC) Essential hypertension, benign Major depressive disorder, recurrent episode, moderate (CMS/HCC) Major depressive disorder, recurrent episode, moderate Senile dementia with behavioral disturbance (CMS/HCC) Other fatigue Atherosclerosis of navajo coronary artery of navajo heart without angina pectoris (CMS/HCC) History of [...] of other medications documented in this encounter [facility] Healthcare[facility]* Diagnosis Type 2 diabetes mellitus with hyperglycemia, without long-term current use of insulin (CMS/HCC)- Primary Benign hypertension (CMS/HCC) Essential hypertension, benign Major depressive disorder, recurrent episode, moderate (CMS/HCC) Major depressive disorder, recurrent episode, moderate Senile dementia with behavioral disturbance (CMS/HCC) Other fatigue Atherosclerosis of navajo coronary artery of navajo heart without angina pectoris (CMS/HCC) History of [...] behavioral disturbance (CMS/HCC) documented in this encounter [facility]* Diagnosis Type 2 diabetes mellitus with hyperglycemia, without long-term current use of insulin (HCC)- Primary Benign hypertension Essential hypertension, benign Major depressive disorder, recurrent episode, moderate (HCC) Major depressive disorder, recurrent episode, moderate Senile dementia with behavioral disturbance (HCC) Other fatigue Atherosclerosis of navajo coronary artery of navajo heart without angina pectoris History of coronary [...] toenail, left foot documented in this encounter [facility]* Diagnosis Type 2 diabetes mellitus with hyperglycemia, without long-term current use of insulin (HCC)- Primary Benign hypertension Essential hypertension, benign Major depressive disorder, recurrent episode, moderate (HCC) Major depressive disorder, recurrent episode, moderate Senile dementia with behavioral disturbance (HCC) Other fatigue Atherosclerosis of navajo coronary artery of navajo heart without angina pectoris History of coronary [...] mild 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 (HCC) Chronic obstructive pulmonary disease, unspecified COPD type (HCC) Type 2 diabetes mellitus with polyneuropathy (HCC) Type II or unspecified type diabetes mellitus with neurological manifestations, not stated as uncontrolled documented in this encounter [facility] Summary [...] section and content) DATE CREATED AUTHOR 10/06/2017 [facility] DATE CREATED AUTHOR AUTHOR'S ORGANIZ ATION 08/01/2022 [facility] DATE CREATED AUTHOR AUTHOR'S ORGANIZ ATION 05/29/2023 [facility] DATE CREATED AUTHOR AUTHOR'S ORGANIZ ATION 12/07/2024 [facility] EPIC DATE CREATED AUTHOR AUTHOR'S ORGANIZ ATION 12/12/2024 [facility] DATE CREATED AUTHOR AUTHOR'S ORGANIZ ATION 12/25/2024 [facility] Care Teams (unrecognized sec tion and content) Manager Of Learning Relationship Specialty Start Date End Date Kenny Horton MD [address] [place] [phone] PCP - General Family Medicine 06/28/23 Manager Of Learning Relationship Specialty Start Date End Date Kenny Horton MD [address] [place] [phone] PCP - General Family Medicine 06/28/23 Manager Of Learning Relationship Specialty Start Date End Date Kenny Horton MD [address] [place] [phone] PCP - General Family Medicine 06/28/23 Manager Of Learning Relationship Specialty Start Date End Date Kenny Horton MD [address] [place] [address] PCP - General Family Medicine 06/28/23 Manager Of Learning Relationship Specialty Start Date End Date Kenny Horton MD [address] [place] [address] PCP - General Family Medicine 06/28/23 Manager Of Learning Relationship Specialty Start Date End Date Kenny Horton MD [address] [place] [address] PCP - General Family Medicine 06/28/23 Manager Of Learning Relationship Specialty Start Date End Date Kenny Horton MD [address] [place] [address] PCP - General Family Medicine 06/28/23 Manager Of Learning Relationship Specialty Start Date End Date Kenny Horton MD [address] [place] [address] PCP - General Family Medicine 06/28/23 Manager Of Learning Relationship Specialty Start Date End Date Kenny Horton MD [address] [place] [address] PCP - General Family Medicine 06/28/23 Manager Of Learning Relationship Specialty Start Date End Date Kenny Horton MD [address] [place] [phone] PCP - [facility] 06/28/23 Manager Of Learning Relationship Specialty Start Date End Date Kenny Horton MD [address] [place] [phone] PCP - [facility] 06/28/23 Manager Of Learning Relationship Specialty Start Date End Date Kenny Horton MD [address] [place] [phone] PCP - [facility] 06/28/23 Manager Of Learning Relationship Specialty Start Date End Date Kenny Horton MD [address] [place] [phone] PCP - [facility] 06/28/23 Manager Of Learning Relationship Specialty Start Date End Date Kenny Horton MD [address] [place] [phone] PCP - [facility] 06/28/23 Reason for Visit (unrecogniz ed [...] today for nail care and callus care. Reason Comments Follow-up 6m Memory Loss FOR RECORDS PERTAINING TO PATIENTS WHO ARE [...] BE BASED ON THE PRIMARY CLINICAL RECORDS. [facility], [facility]. provides no warranty or guarantee of the accuracy or completeness of information in this document.
[2025-01-06 16:50] LABS: Microalbum Creatinine Ratio Ur 296.7 mg/g (0.0-29.9)
== END 2025-01-06 14:26 | disposition home or self-care (01) ==
LOC: LAB 14:31
PROVIDERS: PCP Family Medicine; Visit Provider Family Medicine
DX: E11.65 Type 2 diabetes mellitus with hyperglycemia (principal)
CPT/HCPCS: 36415; 82043; 82570; 83036